=== PATIENT | female | born 1955 | race Caucasian/White ===

== ENCOUNTER → 2019-04-23 15:28 | Outpatient (CLI) | payer OTHER, SELFPAY ==
--- NOTE | 2019-04-23 15:37 | RAD_ITS ---
ACR Level 3 findings have been noted. An addendum which confirms receipt of the report will follow. STUDY: X-RAY -thoracic SPINE REASON FOR EXAM: Female, 63 years old. acute midline thoracic back pain -- no injury TECHNIQUE: 3 view(s) of the thoracic spine were obtained. COMPARISON: April 25, 2009 FINDINGS: There is increased thoracic kyphosis. There are new severe and mild compression fractures of multiple mid vertebral bodies There is multi-level endplate spondylosis. There is multi-level degenerative disc disease with multilevel disc space narrowing. The soft tissue structures are unremarkable. RAD/Thoracic Spine 2 Views IMPRESSION: Mid thoracic compression fractures. Further evaluation with CT is recommended. Electronically Signed: Maya Hinojosa MD at 9:49 EST Tel , Service support ,
--- NOTE | 2019-04-23 15:37 | RAD_ITS ---
STUDY: X-RAY CHEST REASON FOR EXAM: Female, 63 years old. Acute back pain TECHNIQUE: PA and lateral views of the chest. COMPARISON: 04/25/2009 FINDINGS: There is consolidation in the right middle lobe. There are emphysematous changes of lungs. The left lung is clear. There is no demonstrated pleural abnormality. Normal size heart. Normal mediastinum and laurent. Normal visualized pulmonary arteries. There is atherosclerotic calcification of the aortic arch . There is dextroscoliosis of the upper lumbar spine. There is exaggerated kyphosis of the thoracic spine. There is a compression fracture with anterior wedging of mid thoracic vertebral body. Normal visualized ribs, clavicles, and shoulders. There is no demonstrated abnormality of the visualized soft tissue structures of the upper abdomen. RAD/Chest PA and Lateral IMPRESSION: Compression fracture with anterior wedging of midthoracic vertebral body, this is likely acute given the history. There is a right middle lobe consolidation which may represent atelectasis or pneumonia. Electronically Signed: Kell Garcia, at 16:43 EST Tel , Service support ,
== END ==
PROVIDERS: PCP Family Medicine; Referring Provider Family Medicine; Visit Provider Family Medicine
DX: M54.6 Pain in thoracic spine (principal)
CPT/HCPCS: 71046; 72070

== ENCOUNTER → 2019-04-24 09:32 | Outpatient (CLI) | payer OTHER, SELFPAY ==
--- NOTE | 2019-04-24 09:53 | CT_ITS ---
STUDY: CT THORACIC SPINE WITHOUT CONTRAST REASON FOR EXAM: Female, 63 years old. PT STATED UPPER BACK PAIN, SUSPECTED THORACIC COMPRESSION FX RADIATION DOSAGE (If Supplied By Facility): CTDIvol = ( 18.42 ) mGy, DLP = ( 700.93 ) mGycm TECHNIQUE: The patient was scanned in a multi detector CT scanner. High resolution imaging was performed. Images were obtained from C3 to L1. Sagittal and coronal images were reconstructed. Individualized dose optimization techniques were used for this CT. COMPARISON: Thoracic spine x-ray 04/23/2019 and chest x-ray 01/08/2010. FINDINGS: Normal visualized cervical spine. There is acute compression fracture with anterior wedging of the T6 vertebral body with approximately 75% loss of vertebral body height. There is minimal retropulsion of the posterior vertebral body cortex without significant central canal narrowing. There is an acute nondisplaced fracture of the T6 left transverse process. Mild degenerative disc disease. Normal kyphosis of the thoracic spine. There is no substantial scoliosis. The soft tissue structures are unremarkable. Mild emphysematous changes of the lungs. There is mucous inspissation in the right middle lobe and right middle lobe segmental atelectasis. Biapical pleural-parenchymal scarring is seen. A few scattered 2 mm pulmonary nodules. There are atherosclerotic changes of the aortic arch and trace coronary artery calcification. CT/Spine Thoracic without Contras IMPRESSION: Acute compression fracture with anterior wedging of the T6 vertebral body. Acute nondisplaced fracture of the left T6 transverse process. 2 mm pulmonary nodules. If high-risk for developing pulmonary malignancy continued annual chest CT is recommended. If low risk, no follow-up is recommended. Electronically Signed: Kell Garcia, at 12:03 EST Tel , Service support ,
== END ==
PROVIDERS: PCP Family Medicine; Referring Provider Family Medicine; Visit Provider Family Medicine
DX: S22.000A Wedge compression fracture of unspecified thoracic vertebra, initial encounter for closed fracture (principal); X58.XXXA Exposure to other specified factors, initial encounter; Y93.9 Activity, unspecified; Y92.9 Unspecified place or not applicable; Y99.9 Unspecified external cause status
CPT/HCPCS: 72128

== ENCOUNTER 2019-10-02 17:51 | Emergency (ER) | payer MEDICARE, SELFPAY ==
[2019-10-02] VITALS (10 sets, daily range): BP systolic 86–124; BP diastolic 58–70; PULSE 87–110; RESP 17–32; TEMP 36.4–37.1; O2SAT 86–100; BMI 17.9
--- NOTE | 2019-10-02 18:04 | EKG12_ITS ---
Test Reason : SOB Blood Pressure : / mmHG Vent. Rate : 106 BPM Atrial Rate : 106 BPM P-R Int : 136 ms QRS Dur : 074 ms QT Int : 350 ms P-R-T Axes : 083 077 086 degrees QTc Int : 464 ms Sinus tachycardia Nonspecific T wave abnormality Abnormal ECG Confirmed by BC GARCIA ([id number]), international editorial producer NENA OCHOA ([id number]) on 10/05/2019 10:26:56 AM Referred By: SYED Confirmed By:BC GARCIA
--- NOTE | 2019-10-02 18:08 | NURSING ---
NO OLD EKGS
[2019-10-02] MEDS: Ondansetron 4 MG/2 ML Vial IV (18:11)
[2019-10-02] MEDS: Morphine 2 MG/ML Syringe IV ×2 (18:15→18:40)
[2019-10-02] MEDS: Ipratropium/Albuterol Sulfate 3 ML AMPUL.NEB INHALATION (18:20)
[2019-10-02 18:24] LABS: Absolute Lymphocyte Count 1.34 X10^3/uL (0.83-4.51); Absolute Neutrophil Count 18.5 X10^3/uL (2.0-7.7); Basophil# 0.03 X10^3/uL; Basophil% 0.1 % (0-1); Eosinophil# 0.02 X10^3/uL; Eosinophils% 0.1 % (0-5); Hematocrit 22.5 % (37-47); Hemoglobin 6.8 g/dL (12.0-15.0); Lymphocyte # 1.34 X10^3/ul (4.0); Lymphocyte % 6.3 % (19-41); Mean Corp Hgb Conc 30.2 g/dL (32-36); Mean Corpuscular Hgb 23.7 pg (27.0-32.0); Mean Corpuscular Volume 78.4 fL (81-99); Mean Platelet Vol. 8.9 fl (6.2-12.0); Monocyte# 1.25 X10^3/uL; Monocyte% 5.9 % (0-10); NRBC Flagged by Analyzer 0.1 % (0-5); Neutrophil # 18.45 X10^3/uL (2.7-7.7); Neutrophil % 87.2 % (47-70); Platelet Count 699 K/mm3 (150-450); RBC Distribution Width CV 16.6 % (11.6-14.6); RBC Distribution Width SD 47.1 fl (35.1-43.9); Red Blood Count 2.87 M/mm3 (4.2-5.4); White Blood Count 21.2 K/mm3 (4.4-11.0)
[2019-10-02 18:44] LABS: Anion Gap 11 (5-15); BUN 11 mg/dL (7-18); BUN/Creat Ratio 7.5 RATIO (10-20); Calcium,Total 7.4 mg/dL (8.5-10.1); Chloride 107 mmol/L (98-107); Creatinine, Serum 1.47 mg/dL (0.55-1.02); EST Glomerular Filtration Rate 38 mL/min (>60); Est Glom Filt Rate - Afr Amer 46 mL/min (>60); Estimated Creatinine Clearance 27.16 ml/min; Glucose 146 mg/dL (74-106); Magnesium 1.8 mg/dL (1.6-2.6); Potassium 2.7 mmol/L (3.5-5.1); Sodium Level 140 mmol/L (136-145)
--- NOTE | 2019-10-02 18:44 | ED.RN ---
DR CURRY AWARE OF CRITICAL K RESULTS
--- NOTE | 2019-10-02 18:45 | RAD_ITS ---
STUDY: X-RAY CHEST REASON FOR EXAM: Female, 63 years old. SHORTNESS OF BREATH TECHNIQUE: Single AP portable view of the chest. COMPARISON: 04/23/2019. FINDINGS: The lungs are clear and expanded. There is no demonstrated pleural abnormality. Normal size heart. Normal mediastinum and laurent. Normal visualized pulmonary arteries. Normal visualized aortic arch and descending thoracic aorta. Normal visualized thoracic spine. Normal visualized ribs, clavicles, and shoulders. There is no demonstrated abnormality of the visualized soft tissue structures of the upper abdomen. RAD/Chest 1 View (Portable) IMPRESSION: Normal x-ray examination of the chest. Electronically Signed: Aida Gaspar MD at 19:07 EDT Tel , Service support ,
--- NOTE | 2019-10-02 18:49 | CT_ITS ---
STUDY: CTA CHEST REASON FOR EXAM: Female, 63 years old. SOB/TACHYCARDIC/TACHYPNEIC. Hx of asthma, COPD and seizures RADIATION DOSAGE (If Supplied By Facility): CTDIvol = ( 2.56 ) mGy, DLP = ( 111.61 ) mGycm TECHNIQUE: The examination was performed with the intravenous administration of Isovue 370 75ml. Post-processing of the angiographic images was performed, with multiplanar reformation and 3D reconstruction. Individualized dose optimization techniques were used for this CT. COMPARISON: None. FINDINGS: The heart and pericardium are normal. The aorta is normal in caliber. No aneurysm or dissection. There is no mediastinal mass or adenopathy. There is no hilar or axillary adenopathy. There is no evidence of pulmonary embolus. There is no pleural effusion. Right middle lobe scarring is noted. Minimal fibrotic changes are noted in the upper lobes bilaterally. There is no pulmonary consolidation. Increased AP diameter of the chest. Mild centrilobular emphysematous changes. Marked, diffuse fatty infiltration of the liver. Visualized abdomen is otherwise unremarkable. There is no osseous abnormality. CT/CTA Chest W/WO Contrast IMPRESSION: 1. No pulmonary embolism or arterial dissection. 2. COPD. 3. Hepatic steatosis. Electronically Signed: Aida Gaspar MD at 20:21 EDT Tel , Service support ,
[2019-10-02 19:05] LABS: Lactic Acid 5.3 mmol/L (0.4-1.9)
[2019-10-02] MEDS: Ceftriaxone 1 GM/50 ML BAG IV (19:13)
[2019-10-02] MEDS: Potassium Chloride 10mEq/100mL 10 MEQ/100 ML IV.SOLN. 100 MEQ IV BOLUS ×3 (19:46→22:06)
--- NOTE | 2019-10-02 19:58 | ED.VIS.GEN ---
History of Present Illness Chief Complaint: Shortness of Breath Informant: Patient Narrative: Patient is a 63-year-old female with a past medical history of COPD who presents to the emergency department for back pain and shortness of breath. She states that she has known chronic back fractures and this is typical for her back pain. It is in the upper region. He is complaining of diffuse body pain now. She was brought to the emergency department because her friend told her to come. She was having increased work of breathing and feeling short of breath. She does have this chronically but seems to be getting worse recently. She is not on any supplemental oxygen at home. She is a current every day smoker still. She does not use any breathing treatments and does not follow with a PCP. Denies any fevers or chills. She has had a mild cough that has been nonproductive. She denies any leg swelling or calf pain. No history of heart attacks, strokes or DVT/PE. She denies any known sick contacts. No fevers or chills. No abdominal pain or nausea/vomiting. Is been having some episodes of diarrhea over the past few days. Upon arrival patient was very short of breath and had increased work of breathing. After breathing treatment and some time she did improve significantly with her breathing. Better history was able to be attained and she has been having some epigastric abdominal pain. This been present over the past month or 2. She has been having melanotic stools every day to every other day. She states she is a daily drinker and has cut back to 5-6 beers per day. No known history of esophageal varices. Past Medical History - Allergies and Home Meds Allergies/Adverse Reactions: Allergies No Known Allergies Allergy (Verified 10/02/19 18:05) Primary Care Physician: Care Physician,No Primary [Primary Care Provider] - Prior records reviewed: Yes Past Medical History: - - COPD Smoking Status: Light Smoker (<10/day) Alcohol: None, Heavy Drugs: None Review of Systems All systems negative except as indicated General: Denies: Chills, Fever, Sweats Eyes: Denies: Visual changes - bilaterally, Diplopia ENT: Denies: Rhinorrhea, Sore throat Cardiovascular: Denies: Chest pain, Palpitations Respiratory: Reports: Dyspnea, Cough, Dyspnea on exertion, Paroxysmal nocturnal dyspnea. Denies: Sputum Gastrointestinal: Reports: Abdominal pain, Diarrhea, Melena. Denies: Nausea, Vomiting Genitourinary: Denies: Dysuria, Hematuria, Frequency Musculoskeletal: Reports: Back pain. Denies: Extremity Pain Skin: Denies: Rash, Wounds Neurological: Denies: Headache, Weakness, Numbness Physical Exam Vital Signs/Narrative: Vital Signs Temp Pulse Resp BP Pulse Ox 10/02/19 19:36 97.8 F 101 H 28 H 103/64 100 10/02/19 18:36 97.9 F 100 28 H 100/68 10/02/19 18:20 95 32 H 10/02/19 18:06 100 10/02/19 17:53 98.7 F 110 H 24 H 86/58 L 86 Inital Vital Signs reviewed: Yes General: Cachectic, - - Mild distress due to respiratory issues Head: Normocephalic, Atraumatic Eyes: Perrl, EOMI ENT: Moist mucous membranes, No rhinorrhea Neck: Supple, Nontender Cardiovascular: Regular rate, Regular rhythm, No murmurs Respiratory: Rhonchi, Wheezing, Decreased Air Movement, Retractions - Tachypneic, - Abdomen: Soft, Nontender, Nondistended, Normal bowel sounds Back: Normal Inspection, Spinal tenderness Extremities: Nontender, No edema. Negative for: Edema, Calf Tenderness Skin: Normal color, No rash Neurological: Alert, Oriented x3, Cranial nerves II-XII grossly intact, Normal Strength, Normal Sensation Psychological: Normal affect, Normal Mood Diagnostic/Tx/Re-eval - EKG Initial EKG Interpretation: - - Rate of 106 bpm in sinus tachycardia. Normal intervals. Normal axis. No ST elevations or depressions appreciated. No T wave abnormalities. Baseline artifact seen. - Medical Decision Making Patient presents the emerge department for back pain that is chronic for her. She also coming in for shortness of breath. She states she would not have come in unless her friend made her. Upon arrival she did appear to be in mild respiratory distress with tachypnea and retractions. Her lungs did have rhonchi and wheezing bilaterally. She was giving a breathing treatment. Started on supplemental oxygen due to hypoxia. She has a white count over 20 and was started on antibiotics for community-acquired pneumonia although once x-ray obtained which did not show any evidence of pneumonia. Due to the back pain and shortness of breath CT scan was performed to evaluate for dissection versus pulmonary embolism. Initial troponin within normal limits. She is hypokalemic and this is being replaced. Her lactic acid is mildly elevated and she was started on IV fluids. Patient was found to be very anemic. She was consented for packed red blood cells given the shortness of breath with the melanotic stools. Given a dose of IV Protonix. Given the fact that she is a drinker and and with the upper GI bleed she needed to be transferred out as we do not have somebody who can do the endoscopy here. This was discussed with the patient and she is okay with being transferred. She otherwise has been stable after initial resuscitation. Will transfer at this time in stable condition. - Critical Care Time Critical care time (excluding procedures): 30-74 minutes, Discussing w/Patient &/or Family/Plunger Machine Operator, Discussing w/Consultants, Arranging Admission or Transfer, Performing Direct Patient Care at Bedside ED Disposition - Plan for ED Patient: Disposition: [facility] Diagnosis: Upper GI bleed, Blood loss anemia, Acute respiratory failure, Hypokalemia, Leukocytosis, Lactic acidosis, Back pain Referrals: Care Physician,No Primary [Primary Care Provider] -
[2019-10-02] MEDS: Morphine 4 MG/ML Syringe IV (20:23)
[2019-10-02 20:45] LABS: Mucous, Urine 0 SEEN /hpf (<or=2+); Red Blood Cells-Urine 0 SEEN /hpf (0-5)
[2019-10-02 20:50] LABS: Color, Urine Yellow (Yellow); Glucose, Dipstick Normal (Normal); Ketone-Dipstick Negative (Negative); Leukocyte Esterase-Dipstick Negative /ul (Negative); Nitrite-Dipstick Negative (Negative); Occult Blood-Urine 10 /ul (Negative); Protein-Dipstick 15 mg/dl (Negative); Specific Gravity, Urine 1.015 (1.002-1.030); Urine Bilirubin Dipstick Negative (Negative); Urine Clarity Sl. Cloudy (Clear); Urine Urobilinogen Normal (Normal)
[2019-10-02 21:02] LABS: Bacteria 1+ /hpf (None Seen); Squamous Epithelial Cells - UA 0-5 SEEN /hpf (5-10); White Cell Cast 5-10 SEEN /lpf (None Seen)
[2019-10-02 21:03] LABS: White Blood Cells 10-25 SEEN /hpf (0-5)
--- NOTE | 2019-10-02 21:14 | HP.PCM_ITS ---
Problem List (1) Acute respiratory failure Status: Acute Qualifiers: Respiratory failure complication: hypoxia Qualified Code(s): J96.01 - Acute respiratory failure with hypoxia (2) COPD exacerbation Status: Acute (3) Upper GI bleed Status: Acute (4) Blood loss anemia Status: Acute (5) Hypokalemia Status: Acute (6) Lactic acidosis Status: Acute (7) Back pain Status: Chronic Qualifiers: Back pain location: back pain in unspecified location Chronicity: unspecified Back pain laterality: unspecified Qualified Code(s): M54.9 - Dorsalgia, unspecified (8) Tobacco use Status: Chronic (9) Severe protein-calorie malnutrition Status: Chronic (10) Alcohol abuse Status: Chronic History of Present Illness Date of Admission: 10/02/19 Chief Complaint: Dyspnea The patient is a 63 y/o F w/ PMHx: EtOH Abuse, Asthma/COPD with ongoing Tobacco use, Chronic back pain who [facility] with history of increased dyspnea, ongoing for several weeks with no home inhalers, nor on any supplemental oxygen with unchanged baseline chronic cough with no recent fever or chills, nor any COVID risk/exposures not improving prompting eventual ED exposure. Patient upon presentation was wheezing, which improved after aerosol treatment. Given patient significant anemia concern as possible etiology for her dyspnea complaints with further evaluation patient admitting significant ongoing loose stools intermittently over the last 2 weeks, occasionally melanotic appearing with generalized abdominal cramping intermittently. Patient notes that she has recently decreased her alcohol intake and is now drinking approximately 6 beers daily. Work-up in the ED included T 98.7, initially heart rate 110, initially BP 86/58, initially respiratory rate 24, initially 86% on room air with repeat vitals at requested time of evaluation including T 98.3, heart rate 99, BP 116/67, respiratory rate 26, 100% on 3 L nasal cannula, CBC with WBC 21.2, hemoglobin 6.8, MCV 78.4, platelet count 699 with left shift, BMP with potassium 2.7, BUN/creatinine 11/1.47, glucose 146, lactic acid 5.3, calcium 7.8, magnesium 1.8, troponin less than 0.015, urinalysis with specific gravity 1.015, negative nitrite, negative leukocyte esterase, urine WBCs 10-25 with 1+ bacteria, COVID pending, but culture x2 pending per ED, urine culture p ending per ED, chest x-ray with no acute cardiopulmonary findings, follow-up CTPA with no evidence of pulmonary embolism or arterial dissection, evidence of chronic COPD and hepatic steatosis. In the ED patient administered Zofran, several rounds of morphine, Rocephin and azithromycin as well as DuoNeb and albuterol therapies in addition to potassium supplementation. Following patient admission of melanotic stools patient also administered IV Protonix per ED physician and 1 unit PRBC ordered with type and cross. Past Medical History Past Medical History (Chronic Problems): Chronic Problems Back pain (Chronic) Alcohol abuse (Chronic) Severe protein-calorie malnutrition (Chronic) Tobacco use (Chronic) Allergies No Known Allergies Allergy (Verified 10/02/19 18:05) Home Medications: Ambulatory Orders Medication Instructions Recorded Acetaminophen [Tylenol Extra 1,000 mg PO DAILY PRN PRN 10/02/19 Strength] Albuterol Sulfate [Albuterol 2 puff INHALATION Q4H PRN PRN 10/02/19 Sulfate HFA] Aspirin [Aspirin, Baby] 81 mg PO DAILY@0800 10/02/19 Ibuprofen 600 mg PO DAILY PRN PRN 10/02/19 Surgical History: - - Tonsillectomy, left eye surgery. 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 Tobacco Use: Cigarettes Alcohol: Heavy - Patient reports she is now down to 6 beers daily. Previously had been more. Drugs: None - *Family History Maternal History Items: Diabetes Paternal History Items: Diabetes Review of Systems Constitutional: Reports: Anorexia, Malaise, Weakness, Fatigue. Denies: Chills, Fever, Weight Change HEENT: Denies: Head Aches, Sinus Congestion, Sinus Drainage Cardiovascular: Denies: Chest Pain, Chest Pressure, Chest Tightness, Light Headedness, Orthopnea, Palpitations, Syncope Respiratory: Reports: Cough, Shortness of Breath, Shortness of breath at rest, Shortness of breath upon exertion, Wheezing. Denies: Sputum production Gastrointestinal: Reports: Abdominal Pain, Diarrhea, Dyspepsia, Nausea, Melena. Denies: Vomiting Genitourinary: Denies: Dysuria Musculoskeletal: Reports: Back Pain, Joint Pain. Denies: Joint Tenderness Skin: Denies: Rash, Wounds Neurological: Denies: Numbness, Tingling, Focal weakness Psychiatric: Denies: Anxiety, Depression, Homicidal Ideations, Suicidal Ideations Hematologic/ Lymphatic: Reports: Anemia, Easy Bruising, Easy Bleeding VTE Information - Inpt Only VTE Present on Admission: No VTE Mechan Device Prophylaxis: SCD's VTE Pharm Prophylaxis ordered?: No Reason prophylaxis not ordered:: Medical Contraindication Subjective: Patient seated upright in the ED bed, significantly uncomfortable appearing, notes that her back is bothering her, feels less short of breath than initial ED presentation. Objective: Physical Examination: General: awake, alert, oriented x 3 and cooperative, seated upright in the ED bed, notes significant discomfort to her back, notes less dyspnea than initial ED presentation. Skin: Pale color, turgor, no icterus, cyanosis. HEENT: AT/NC, EOMI, PERRLA, dry MM, no carotid bruits or JVD noted. Lungs: Diminished breath sounds, greater bilateral bases, still mild increased respiratory rate but less and accessory muscle usage, improved since initial ED presentation, still occasional end expiratory wheeze, no obvious rales or rhonchi. Heart: Tachycardic with regular rhythm; no gallop, rub audible. Abdomen: soft, cachectic appearing, mild generalized discomfort with palpation with no rebound or guarding, ND, normal BS, positive HM. Extremities: no cyanosis, clubbing, or edema. Neurological: patient awake, alert, oriented x 3; cognitive function intact; pupils equally reactive to light and accomodation; cranial nerves II-XII grossly normal, moving all 4 extremities, no focal deficits, strength moderately to severely global decrease secondary to acute presentation and complaints. Psychiatric: affect appears uncomfortable, ill-appearing, no acute evidence of depressive or anxiety feelings. - Physical Exam Vitals/I&O's: Vital Signs Temp Pulse Resp BP Pulse Ox 98.3 F 99 26 H 116/67 100 10/02/19 20:34 10/02/19 20:34 10/02/19 20:34 10/02/19 20:34 10/02/19 20:34 Oxygen Flow Rate (L/min) 3 Oxygen Delivery Method Nasal Cannula Weight: 98 lb 1.691 oz Body Mass Index (BMI) 17.9 Intake and Output for Last 24 Hours 09/30/19 10/01/19 10/02/19 23:59 23:59 23:59 Intake Total 388.33 / 388.33 Balance 388.33 / 388.33 Laboratory Results 10/02/19 18:05: WBC 21.2 H, RBC 2.87 L, Hgb 6.8 L, Hct 22.5 L, MCV 78.4 L, MCH 23.7 L, MCHC 30.2 L, RDW Std Deviation 47.1 H, RDW Coeff of Lennox 16.6 H, Plt Count 699 H, MPV 8.9, Immature Gran % (Auto) 0.400, Neut % (Auto) 87.2 H, Lymph % (Auto) 6.3 L, Wilcox % (Auto) 5.9, Eos % (Auto) 0.1, Baso % (Auto) 0.1, Absolute Neuts (auto) 18.5 H, Absolute Lymphs (auto) 1.34, Nucleated RBC % 0.1 10/02/19 18:05: Sodium 140, Potassium 2.7 L*, Chloride 107, Carbon Dioxide 22.0, Anion Gap 11, BUN 11, Creatinine 1.47 H, Estim Creat Clear Calc 27.16, Est GFR (MDRD) Af Amer 46 L, Est GFR (MDRD) Non-Af 38 L, BUN/Creatinine Ratio 7.5 L, Glucose 146 H, Calcium 7.4 L, Magnesium 1.8, Troponin I < 0.015 10/02/19 18:05: Lactic Acid 5.3 H* 10/02/19 19:17: COVID-19 (TEJAS) Pending 10/02/19 20:37: Urine Color Yellow, Urine Clarity Sl. Cloudy, Urine pH 5.0, Ur Specific [place] 1.015, Urine Protein 15 H, Urine Glucose (UA) Normal, Urine Ketones Negative, Urine Occult Blood 10 H, Urine Nitrite Negative, Urine Bilirubin Negative, Urine Urobilinogen Normal, Ur Leukocyte Esterase Negative, U rine RBC 0 SEEN, Urine WBC 10-25 SEEN, Ur Squamous Epith Cells 0-5 SEEN, Urine Bacteria 1+, WBC Casts 5-10 SEEN, Urine Mucus 0 SEEN Current Medications Potassium Chloride () 10 meq in 100 mls @ 100 mls/hr IV BOLUS Q1H GONZALEZ Stop: 10/02/19 21:59 Last Admin: 10/02/19 20:36 Dose: 100 mls/hr Documented by: Assessment/Plan All Active Problems Upper GI bleed (Acute) Blood loss anemia (Acute) Acute respiratory failure (Acute) Hypokalemia (Acute) Leukocytosis (Acute) Lactic acidosis (Acute) COPD exacerbation (Acute) The patient is a 63 y/o F w/ PMHx: EtOH Abuse, Asthma/COPD with ongoing Tobacco use, Chronic back pain who [facility] with history of increased dyspnea, ongoing for several weeks with no home inhalers, nor on any supplemental oxygen with unchanged baseline chronic cough with no recent fever or chills, nor any COVID risk/exposures not improving prompting eventual ED exposure. 1. Acute Hypoxic Respiratory Failure, Multifactorial, Acute on chronic COPD exacerbation and #2: Pending discussions with general surgeon if amenable to admission at [facility] [place], will admit to PCU, and on telemetry monitoring, maintain on oxygen with wean as tolerated to room air, continue on. ATC duonebs, PRN albuterol, able defer Solu-Medrol given concern for GI bleed but if necessary would add, HOB, IS parameters, IV Rocephin and azithromycin pending repeat a.m. chest x-ray given significant leukocytosis with left shift with pending sputum cultures. 2. Acute GI Bleed w/ resultant Acute Blood Loss Anemia on Chronic: Would plan to obtain admission coags, per discussion with ED physician planned 1 unit PRBC administration, continue serial H&H's following, additional PRBCs as needed, maintain n.p.o. status, maintain on IV Protonix, plan in discussions with general surgery for consideration for admission and endoscopies although high risk given alcohol abuse history. Given possible variceal given alcohol abuse history, maintain on IV Rocephin as noted above #1. May need to consider octreotide. 3. Lactic acidosis, suspected secondary to #2: Admission lactic acid initially 5.3, suspect secondary to GI bleed, continue judicious hydration, trend lactic acid level. 4. Hypokalemia: Admission K+ 2.7, magnesium level requested, likely associated with recent significant stool output secondary to #2, supplementation given, repeat level in AM. 5. ? LORENZO versus CKD, unclear stage: Admission BUN/creatinine 12/22.47, unclear baseline, creatinine clearance 27, suspect acute kidney injury, continue judicious hydration, repeat BMP in AM. 6. EtOH Abuse: Patient notes routine consumption of at least 6 beers per day. Will maintain on CIWA protocol, MVI, thiamine and folic acid. Patient notes intention of continued EtOH usage. 7. Severe protein calorie malnutrition: Evidenced per BMI, obvious muscle and fat loss, nutrition consulted for education and teaching. 8. DVT prophylaxis: SCDs, defer chemoprophylaxis given acute presentation with suspected GI bleed with acute on chronic anemia. 9. CODE status: Patient does not have healthcare power of attorney at law nor living will in place. Encouraged her to set these items up. Discussed CODE status at length including difference between FULL code, DNR-CCA and DNR-CC status. Following discussions about the differences in these status, requested Full Code status. Advanced Care Planning Face to Face Time: 16 minutes.
[2019-10-02 22:46] LABS: Reflex Lactate? Y
[2019-10-02 23:41] LABS: AST(SGOT) 15 U/L (15-37); Alanine Aminotransfer ALT/SGPT 39 U/L (13-56); Albumin, Serum 1.6 g/dL (3.2-5.0); Alkaline Phosphatase 205 U/L (45-117); Bilirubin, Direct 0.14 mg/dL (0.00-0.30); Globulin 3.7 g/dL (2.2-4.2); Protein, Total 5.3 g/dL (6.4-8.2)
[2019-10-02 23:52] LABS: Lactic Acid 3.3 mmol/L (0.4-1.9)
[2019-10-03 00:10] VITALS: BP 96/67; PULSE 91; RESP 19; O2SAT 100
[2019-10-03 00:15] VITALS: BP 107/82; PULSE 93; RESP 22; TEMP 36.6; O2SAT 100
[2019-10-03 00:41] LABS: International Normalized Ratio 1.3; Prothrombin Time (Protime)PT. 15.4 SECONDS (11.7-14.9)
[2019-10-03 00:42] LABS: Partial Thromboplast Time 32.9 Seconds (24.1-36.2)
== END 2019-10-03 01:09 | disposition short-term general hospital (02) ==
PROVIDERS: Emergency Provider Emergency Medicine
DX: J96.01 Acute respiratory failure with hypoxia (principal); J44.1 Chronic obstructive pulmonary disease with (acute) exacerbation; D62 Acute posthemorrhagic anemia; E87.6 Hypokalemia; E87.2 Acidosis; D72.829 Elevated white blood cell count, unspecified; K92.1 Melena; R10.13 Epigastric pain; M54.9 Dorsalgia, unspecified; G89.29 Other chronic pain; E43 Unspecified severe protein-calorie malnutrition; F10.10 Alcohol abuse, uncomplicated; F17.210 Nicotine dependence, cigarettes, uncomplicated; Z79.82 Long term (current) use of aspirin; Z79.899 Other long term (current) drug therapy
CPT/HCPCS: 71045; 71275; 80048; 80076; 81001; 83605; 83735; 84484; 85025; 85610; 85730; 86850; 86900; 86901; 86920; 86922; 87040; 87086; 87635; 93005; 94640; 94799; 96365; 96366; 96367; 96375; 96376; 99285; J7030; J7040; J7050; Q9967; A4216; J2405; U0003

== ENCOUNTER 2019-10-21 09:52 | Inpatient (IN) | payer MEDICARE, SELFPAY ==
[2019-10-02 17:53] VITALS: BMI 17.9
[2019-10-21 09:52] VITALS: BP 142/79; PULSE 107; RESP 25; TEMP 37.1; O2SAT 94; BMI 17.9
--- NOTE | 2019-10-21 10:42 | RAD_ITS ---
STUDY: X-RAY CHEST REASON FOR EXAM: Female, 64 years old. WEAKNESS, COPD TECHNIQUE: Single AP portable view of the chest. COMPARISON: 10/02/2019 FINDINGS: There is hyperinflation of the lungs consistent with chronic obstructive lung disease (COPD). Alveolar opacity in the lower right lung which silhouettes right heart border consistent with right middle lobe pneumonia. Tiny right pleural effusion. Normal size heart. Normal mediastinum and laurent. Normal visualized pulmonary arteries. Normal visualized aortic arch and descending thoracic aorta. Normal visualized thoracic spine. Normal visualized ribs, clavicles, and shoulders. There is no demonstrated abnormality of the visualized soft tissue structures of the upper abdomen. RAD/Chest 1 View (Portable) IMPRESSION: Emphysema with right middle lobe pneumonia and a tiny right pleural effusion. Electronically Signed: Van Beck MD at 11:12 EDT Tel , Service support ,
--- NOTE | 2019-10-21 10:42 | EKG12_ITS ---
Test Reason : Blood Pressure : / mmHG Vent. Rate : 099 BPM Atrial Rate : 099 BPM P-R Int : 120 ms QRS Dur : 064 ms QT Int : 366 ms P-R-T Axes : 076 074 081 degrees QTc Int : 469 ms Normal sinus rhythm with sinus arrhythmia Low voltage QRS (Limb Leads) Possible Left atrial enlargement Nonspecific ST abnormality Abnormal ECG Confirmed by DANUTA WHITTEN, IMTIAZ ([id number]), index editor NENA OCHOA ([id number]) on 10/25/2019 11:23:54 AM Referred By: ALAYNA Confirmed By:IMTIAZ TIPTON MD
[2019-10-21 10:53] LABS: Absolute Lymphocyte Count 1.62 X10^3/uL (0.83-4.51); Absolute Neutrophil Count 13.8 X10^3/uL (2.0-7.7); Basophil# 0.03 X10^3/uL; Basophil% 0.2 % (0-1); Eosinophil# 0.01 X10^3/uL; Eosinophils% 0.1 % (0-5); Hemoglobin 10.5 g/dL (12.0-15.0); Lymphocyte # 1.62 X10^3/ul (4.0); Lymphocyte % 9.6 % (19-41); Mean Corp Hgb Conc 30.9 g/dL (32-36); Mean Corpuscular Hgb 26.9 pg (27.0-32.0); Mean Platelet Vol. 10.5 fl (6.2-12.0); Monocyte# 1.35 X10^3/uL; NRBC Flagged by Analyzer 0 % (0-5); Neutrophil # 13.75 X10^3/uL (2.7-7.7); Neutrophil % 81.3 % (47-70); POSITIVE COUNT YES; POSITIVE MORPHOLOGY YES; RBC Distribution Width SD 72.3 fl (35.1-43.9); Red Blood Count 3.91 M/mm3 (4.2-5.4); White Blood Count 16.9 K/mm3 (4.4-11.0)
[2019-10-21 11:06] LABS: Anion Gap 7 (5-15); BUN 5 mg/dL (7-18); BUN/Creat Ratio 17.3 RATIO (10-20); Calcium,Total 8.2 mg/dL (8.5-10.1); Chloride 110 mmol/L (98-107); Creatinine, Serum 0.29 mg/dL (0.55-1.02); EST Glomerular Filtration Rate 248 mL/min (>60); Est Glom Filt Rate - Afr Amer 300 mL/min (>60); Estimated Creatinine Clearance 158.15 ml/min; Glucose 93 mg/dL (74-106); Potassium 3.7 mmol/L (3.5-5.1); Sodium Level 140 mmol/L (136-145)
[2019-10-21 11:07] LABS: Differential Indicated SCAN CRITERIA MET; Platelet Count 921 K/mm3 (150-450)
--- NOTE | 2019-10-21 11:13 | ED.DCSUM_ITS ---
History of Present Illness Chief Complaint: Weakness Informant: Patient Onset: Days Context: Gradual Onset Narrative: Patient is a 64-year-old female with history of COPD and recent complex medical admission at [facility] for respiratory failure requiring intubation for 2 days, pleural effusions, COPD exacerbation, colitis and GI bleed. Patient was actually intubated from 10/04- and then weaned off of oxygen. She had bilateral thoracentesis performed with 900 mL's taken off of each side. This was on 10/10. Patient was discharged from the hospital yesterday home. Patient had been recommended to go to long term facility but had refused thinking that she could go home with a walker. Patient has not been able to move or walk since she has been home. She states she is too weak. She now realizes that she needs to placement and came back to the emergency room to help arrange that. Patient lives home alone. Patient states she is otherwise feeling well. She denies any worsening of her breathing, chest pain or any other constitutional symptoms. Past Medical History - Allergies and Home Meds Allergies/Adverse Reactions: Allergies No Known Allergies Allergy (Verified 10/21/19 09:54) Surgical History: - - Tonsillectomy, left eye surgery. Smoking Status: Current every day smoker - Family History Maternal Family History: Reports: Diabetes Paternal Family History: Reports: Diabetes Review of Systems General: Denies: Chills, Fever, Sweats Eyes: Denies: Visual changes - bilaterally, Diplopia ENT: Denies: Rhinorrhea, Sore throat Cardiovascular: Denies: Chest pain, Palpitations Respiratory: Denies: Dyspnea, Cough, Dyspnea on exertion Gastrointestinal: Denies: Abdominal pain, Nausea, Vomiting, Diarrhea, Melena, Hematochezia Genitourinary: Denies: Dysuria, Hematuria, Frequency Musculoskeletal: Denies: Back pain, Extremity Pain Skin: Denies: Rash, Wounds Neurological: Reports: Weakness - Generalized. Denies: Headache, Numbness Physical Exam Vital Signs/Narrative: Vital Signs Temp Pulse Resp BP Pulse Ox 10/21/19 09:52 98.8 F 107 H 25 H 142/79 H 94 Inital Vital Signs reviewed: Yes General: Well nourished, Well developed, No Acute Distress Head: Normocephalic, Atraumatic Eyes: Perrl, EOMI ENT: Moist mucous membranes, No rhinorrhea Neck: Supple, Nontender, No JVD Cardiovascular: Regular rate, Regular rhythm, No murmurs Respiratory: No distress, Chest nontender, Diminished - Right base Abdomen: Soft, Nontender, Nondistended, Normal bowel sounds Back: Nontender, Normal Inspection Extremities: Nontender, No edema Skin: Normal color, No rash Neurological: Alert, Oriented x3, Cranial nerves II-XII grossly intact, Normal Sensation, - - Weakness of the lower extremities bilaterally but no focal deficits consistent with a stroke Psychological: Normal affect, Normal Mood Diagnostic/Tx/Re-eval Chest X-Ray - ED: 1 View, Read by ED Physician, Read by Radiologist, Right Infiltrate Laboratory Data 10/21/19 10/21/19 10:05 12:26 Differential Comment SCANNED Diff Path Review May foll Platelet Estimate [employer] Urine Color Yellow Urine Clarity Clear Urine pH 7.0 Ur Specific [place] 1.010 Urine Protein 15 H Urine Glucose (UA) Normal Urine Ketones 5 H Urine Occult Blood 10 H Urine Nitrite Negative Urine Bilirubin Negative Urine Urobilinogen Normal Ur Leukocyte Esterase 25 H Urine RBC 0-5 SEEN Urine WBC 5-10 SEEN Ur Squamous Epith Cells 5-10 SEEN Urine Bacteria RARE Urine Mucus RARE - Rhythm Strip Rhythm Strip: Sinus Rhythm Rate: 99 Ectopy: None - EKG Initial EKG Interpretation: Sinus Rhythm, - - Sinus rhythm at a rate of 99 Normal intervals Nonspecific T wave changes No change compared to prior to prior EKG on 10/02/2019 - Medical Decision Making Patient is evaluated for generalized weakness and inability to care for self at home. Patient was just discharged from [facility] yesterday. She was supposed to be admitted to a long term facility but had refused wanted to go home instead. Patient will require repeat admission for placement of nursing facility. She does have a mild leukocytosis but is currently on steroids. Her chest x-ray does show right infiltrate however she had a pneumonia she was treated for. She not having any respiratory symptoms that are worsening so I think this can be monitored at this time is likely her resolving pneumonia. ED Disposition - Plan for ED Patient: Disposition: Acute Care Hospital [facility] Diagnosis: Generalized weakness, Leukocytosis
[2019-10-21 11:45] LABS: Differential Comment SCANNED; Platelet Estimate MKD INC (ADEQ)
[2019-10-21 11:58] VITALS: BP 119/70; PULSE 86; RESP 17; O2SAT 97
[2019-10-21 12:37] LABS: Color, Urine Yellow (Yellow); Glucose, Dipstick Normal (Normal); Ketone-Dipstick 5 mg/dl (Negative); Leukocyte Esterase-Dipstick 25 /ul (Negative); Nitrite-Dipstick Negative (Negative); Occult Blood-Urine 10 /ul (Negative); Protein-Dipstick 15 mg/dl (Negative); Urine Bilirubin Dipstick Negative (Negative); Urine Clarity Clear (Clear); Urine Urobilinogen Normal (Normal)
--- NOTE | 2019-10-21 12:38 | PCM.HP.STD ---
History of Present Illness Date of Admission: 10/21/19 Chief Complaint: debility and weakness The patient is a 64 year old F with a past medical history which includes alcohol dependence. Patient was recently admitted at [facility] for an extended period for about 2 weeks in September 2019 for acute hypoxic respiratory failure with pneumonia and COPD exacerbation as well as bilateral pleural effusions. She was intubated during that admission and also had thoracentesis with drainage of 900 cc of fluid. Patient was also on antibiotics and was only discharged on 10/20/2019. She had been skilled for rehab but patient refused because she says she wanted to go home to her dog. On getting home, patient was very weak and debilitated and could not even get up. She therefore called the EMS and came back to the ED today. She denied any fever, chills, cough, shortness of breath, nausea vomiting or diarrhea. Review of symptoms otherwise negative. Vitals in the ED showed temperature of 98.8 Fahrenheit with blood pressure 119/70, pulse rate of 86 and respiratory rate of 17. Chemistry was essentially unremarkable. CBC showed WBC of 16.9 with hemoglobin of 10.5 and platelets of 921. This x-ray showed emphysema with right middle lobe pneumonia and a tiny right pleural effusion. She has been admitted to be managed for debility due to recent prolonged hospitalization as well as thrombocytosis. [] Past Medical History Past Medical History (Chronic Problems): Chronic Problems Alcohol abuse (Chronic) Severe protein-calorie malnutrition (Chronic) Tobacco use (Chronic) Allergies No Known Allergies Allergy (Verified 10/21/19 09:54) Home Medications: Ambulatory Orders Medication Instructions Recorded Albuterol Sulfate [Albuterol 2 puff INHALATION Q4H PRN PRN 10/02/19 Sulfate HFA] Aspirin [Aspirin, Baby] 81 mg PO DAILY@0800 10/02/19 Folic Acid 1 mg PO DAILY 10/21/19 Pantoprazole Sodium [Protonix] 40 mg PO BID 10/21/19 Prednisone 10 mg PO DAILY 10/21/19 Thiamine HCl [B-1] 100 mg PO DAILY 10/21/19 Surgical History: - - Tonsillectomy, left eye surgery. 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 Denies: Chills, Fever, Malaise, Weight Change Eyes: Denies: Blurred vision HEENT: Denies: Head Aches, Sinus Congestion, Sinus Drainage Cardiovascular: Denies: Chest Pain, Palpitations Respiratory: Denies: Cough, Shortness of Breath, Shortness of breath at rest, Shortness of breath upon exertion, Sputum production Gastrointestinal: Denies: Abdominal Pain, Nausea, Vomiting Genitourinary: Denies: Dysuria Musculoskeletal: Denies: Joint Pain, Joint Tenderness Skin: Denies: Rash, Wounds Neurological: Denies: Numbness, Tingling, Focal weakness Psychiatric: Denies: Anxiety, Depression, Homicidal Ideations, Suicidal Ideations Hematologic/ Lymphatic: Denies: Easy Bruising, Easy Bleeding VTE Information - Inpt Only VTE Present on Admission: No VTE Pharm Prophylaxis ordered?: Yes - Physical Exam Vitals/I&O's: Vital Signs Temp Pulse Resp BP Pulse Ox 98.8 F 86 17 119/70 97 10/21/19 09:52 10/21/19 11:58 10/21/19 11:58 10/21/19 11:58 10/21/19 11:58 Oxygen Delivery Method Room Air Weight: 114 lb 3.191 oz Body Mass Index (BMI) 17.9 General: Alert, Oriented x3, Cooperative, - - Patient looks much older than stated age. Looks weak. HEENT: Atraumatic, PERRLA, EOMI, Normocephalic Oral: Dry Mucosa Neck: Supple, No JVD, Negative Carotid Bruits Lungs: - - diminished breath sounds bibasally, no wheezes or crackles. has dressing over thoracentesis side on left side. Cardiovascular: Regular rate, Regular Rhythm, Normal S1, Normal S2, No murmurs Abdomen: Bowel Sounds Present, Soft, Non Tender, Non-Distended, No Hepato-splenomegaly Extremities: No clubbing, No cyanosis, No edema, Capillary Refill Less than 3 Seconds Skin: No rashes, No breakdown Musculoskeletal: No Tenderness to Palpation of Joints or Extremities Lymphatic: No Cervical, Supraclavicular, or Inguinal Adenopathy Neurological: Cranial nerves II-XII grossly intact, Neuro grossly intact, Motor Exam 5/5 strength throughout Psych/Mental Status: Normal Affect, Appropriate, Alert and oriented to time, place, person, mood and affect Laboratory Results 10/21/19 10:05: WBC 16.9 H, RBC 3.91 L, Hgb 10.5 L, Hct 34.0 L, MCV 87.0, MCH 26.9 L, MCHC 30.9 L, RDW Std Deviation 72.3 H, RDW Coeff of [place] 23.0 H, Plt Count 921 H*, MPV 10.5, Immature Gran % (Auto) 0.800, Neut % (Auto) 81.3 H, Lymph % (Auto) 9.6 L, [place] % (Auto) 8.0, Eos % (Auto) 0.1, Baso % (Auto) 0.2, Absolute Neuts (auto) 13.8 H, Absolute Lymphs (auto) 1.62, Nucleated RBC % 0, Differential Comment SCANNED, Diff Path Review June, Platelet Estimate [employer] 10/21/19 10:05: Sodium 140, Potassium 3.7, Chloride 110 H, Carbon Dioxide 23.0, Anion Gap 7, BUN 5 L, Creatinine 0.29 L, Estim Creat Clear Calc 158.15, Est GFR (MDRD) Af Amer 300, Est GFR (MDRD) Non-Af 248, BUN/Creatinine Ratio 17.3, Glucose 93, Calcium 8.2 L, Troponin I < 0.015 10/21/19 12:26: Urine Color Pending, Urine Clarity Pending, Urine pH Pending, Ur Specific [place] Pending, Urine Protein Pending, Urine Glucose (UA) Pending, Urine Ketones Pending, Urine Occult Blood Pending, Urine Nitrite Pending, Urine Bilirubin Pending, Urine Urobilinogen Pending, Ur Leukocyte Esterase Pending, Urine RBC Pending, Urine WBC Pending, Ur Squamous Epith Cells Pending, Urine Bacteria Pending, Urine Mucus Pending Diagnostic Data Chest X-Ray 10/21/19 10:42 IMPRESSION: Emphysema with right middle lobe pneumonia and a tiny right pleural effusion. Electronically Signed: Van Beck MD at 11:12 EDT Tel , Service support , Assessment/Plan All Active Problems COPD exacerbation (Acute) 64-year-old female admitted with a complaint of weakness. # Debility due to recent prolonged hospitalisation and illness [facility] OT. Fall precautions. Patient now agreeable to placement. #Leukocytosis: WBC 16.9. Patient was recently treated for pneumonia after being intubated and managed for acute hypoxic respiratory failure at [facility]. She was discharged home on steroids and she had been on steroids during admission as well for COPD exacerbation. That is likely what is the cause of this elevated leukocytosis as there is no clear evidence of infection now. Will monitor. #Thrombocytosis: Platelets are 921. Baseline platelets from 10/02/2019 was 699. Will consult hematology. #History of alcohol dependence: On thiamine 100 mg daily. Will add on folic acid. States she has not had a drink in a long while and was also recently on admission and just discharged yesterday. She developed low risk of withdrawal. #DVT prophylaxis: Lovenox Inpatient E&M: 87003 Init Hosp L2 Procedures: 32851 Advncd Care Plan 30 Min
[2019-10-21 12:47] LABS: Bacteria RARE /hpf (None Seen); Mucous, Urine RARE /hpf (<or=2+); Red Blood Cells-Urine 0-5 SEEN /hpf (0-5); Squamous Epithelial Cells - UA 5-10 SEEN /hpf (5-10); White Blood Cells 5-10 SEEN /hpf (0-5)
[2019-10-21 13:27] VITALS: BP 119/70; PULSE 86; RESP 17; TEMP 37.1; O2SAT 97
[2019-10-21 13:41] VITALS: BP 107/83; PULSE 98; RESP 18; TEMP 36.8; O2SAT 95
[2019-10-21 13:43] VITALS: BMI 16.4
[2019-10-21 13:55] VITALS: BMI 16.4
[2019-10-21 14:21] VITALS: RESP 18
[2019-10-21] MEDS: 0.9% Normal Saline 1,000 ML 120 ML IV ×2 (14:49→22:07)
[2019-10-21] MEDS: Acetaminophen 325 MG Tablet 650 MG PO (20:31)
[2019-10-21 20:34] VITALS: BP 120/59; PULSE 93; RESP 16; TEMP 36.6; O2SAT 95
[2019-10-21] MEDS: Pantoprazole Sodium 40 MG Tablet PO (22:07)
[2019-10-22] MEDS: Menthol/Lanolin/Calamine/Znox 113 GM Tube 1 APPLIC TOPICAL ×3 (03:50→20:30)
[2019-10-22 03:55] VITALS: BP 116/59; PULSE 89; RESP 16; TEMP 37.1; O2SAT 95
[2019-10-22 07:03] LABS: Absolute Lymphocyte Count 1.73 X10^3/uL (0.83-4.51); Basophil# 0.03 X10^3/uL; Basophil% 0.2 % (0-1); Eosinophil# 0.04 X10^3/uL; Eosinophils% 0.2 % (0-5); Hematocrit 29.5 % (37-47); Hemoglobin 9.3 g/dL (12.0-15.0); Lymphocyte # 1.73 X10^3/ul (4.0); Lymphocyte % 10.7 % (19-41); Mean Corp Hgb Conc 31.5 g/dL (32-36); Mean Corpuscular Hgb 27.5 pg (27.0-32.0); Mean Corpuscular Volume 87.3 fL (81-99); Mean Platelet Vol. 9.7 fl (6.2-12.0); Monocyte# 1.13 X10^3/uL; NRBC Flagged by Analyzer 0 % (0-5); Neutrophil # 13.04 X10^3/uL (2.7-7.7); Neutrophil % 80.8 % (47-70); POSITIVE COUNT YES; POSITIVE MORPHOLOGY YES; RBC Distribution Width CV 22.6 % (11.6-14.6); RBC Distribution Width SD 71.6 fl (35.1-43.9); Red Blood Count 3.38 M/mm3 (4.2-5.4); White Blood Count 16.1 K/mm3 (4.4-11.0)
[2019-10-22 07:04] LABS: Differential Indicated SCAN CRITERIA MET; Platelet Count 823 K/mm3 (150-450)
[2019-10-22 07:33] LABS: Anisocytosis 2+; Hypochromasia 2+; Macrocytosis RARE; Platelet Estimate MKD INC (ADEQ); Polychromasia 1+; Target Cells 1+
[2019-10-22 07:45] VITALS: BP 124/70; PULSE 78; RESP 16; TEMP 36.6; O2SAT 98
[2019-10-22] MEDS: Aspirin 81 MG TAB.CHEW PO (07:49)
[2019-10-22 08:02] LABS: Anion Gap 6 (5-15); BUN 3 mg/dL (7-18); BUN/Creat Ratio 10.8 RATIO (10-20); Calcium,Total 7.4 mg/dL (8.5-10.1); Chloride 113 mmol/L (98-107); Creatinine, Serum 0.28 mg/dL (0.55-1.02); EST Glomerular Filtration Rate 259 mL/min (>60); Est Glom Filt Rate - Afr Amer 314 mL/min (>60); Estimated Creatinine Clearance 150.52 ml/min; Glucose 76 mg/dL (74-106); Potassium 2.5 mmol/L (3.5-5.1); Sodium Level 142 mmol/L (136-145)
[2019-10-22 08:18] LABS: Magnesium 1.5 mg/dL (1.6-2.6)
[2019-10-22 09:00] LABS: Potassium 2.6 mmol/L (3.5-5.1)
--- NOTE | 2019-10-22 09:03 | ONC.CON.INP2 ---
- Problem List (1) Thrombocytosis Status: Acute (2) Anemia Status: Chronic (3) Leukocytosis Status: Acute (4) Iron deficiency anemia due to chronic blood loss Status: Chronic Consult Referring Physician: Hospitalist Consult Results: Abnormal CBC Subjective Date of Service:: 10/22/19 Chief Complaint: debility History of Present Illness: 64-year-old female admitted with debility and failure to thrive following a prolonged hospitalization at [facility] during which she was treated for pneumonia, severe anemia presumably from peptic ulcer disease. She had been a smoker and excessive alcohol user until recent hospitalization in [place]. Laboratory Tests 10/02/19 10/21/19 10/22/19 18:05 10:05 06:50 WBC 21.2 H 16.9 H 16.1 H Hgb 6.8 L 10.5 L 9.3 L Hct 22.5 L 34.0 L 29.5 L MCV 78.4 L 87.0 87.3 Plt Count 699 H 921 H* 823 H* Absolute Neuts (auto) 18.5 H 13.8 H 13.0 H Past Medical History: Chronic Problems Iron deficiency anemia due to chronic blood loss (Chronic) Alcohol abuse (Chronic) Severe protein-calorie malnutrition (Chronic) Tobacco use (Chronic) Anemia (Chronic) Past Medical/Surgical History: Past Medical History - Most Recent Inpatient Visit Past Medical History Start: 10/21/19 13:38 Text: Status: Complete Freq: ONCE Protocol: Document 10/21/19 13:55 MACK (Rec: 10/21/19 14:08 MACK [id number]) BMI Required to complete PMH What is Patient's BMI 16.4 Past Medical History Unable History Recalled No Query Text:Pt Unable/Family Not Present Neurologic Medical History Hx Stroke/TIA No Hx Dementia/Alzheimer's No Hx Parkinson's Disease No Hx Seizures No Hx Multiple Sclerosis No Hx Migraines No Cardiac Medical History VTE Present on Admission No Hx of Deep Vein Thrombosis/VTE/PE No Hx Hypertension No Hx Chest Pain/Angina No Hx Heart Attack No Hx Cardiac Surgery/Stents/Etc. No Hx Heart Failure No Hx Pacemaker/AICD No Hx Irregular Heartbeat and/or Afib No Hx Anticoagulant Therapy Yes: aspirin Query Text:(Coumadin, Aspirin, Plavix, Xarelto, etc.) Hx Pain in Legs when Walking/Leg Cramps No Respiratory Medical History Hx COPD Yes Hx Emphysema No Hx Smoking Yes Smoking Status Current every day smoker Tobacco Use Cigarettes Years Smoking 49 Packs Smoked per Day 1.5 Hx Smoking Exposure Yes Hx Tobacco Use in last 12 months Yes Sent to [facility] Yes Hx of Pipe Smoking No Hx of Cigar Smoking No Hx Sleep Apnea No Do you snore loudly (louder than talking No or can be heard through closed doors)? Do you often feel tired/ fatigued/ No sleepy during daytime? Has anyone observed you stop breathing No during sleep? STOP Results Negative GI Medical History Hx Ulcer No Hx Hepatitis No Hx Cirrhosis No Hx GI Bleed No Hx Unplanned Weight Loss No Genitourinary Medical History Indwelling Catheter in Place on Arrival/ No Admission Hx Renal Disease No Hx Dialysis No Musculoskeletal History Hx Arthritis No Hx Rheumatoid Arthritis No Endocrine Medical History Hx Diabetes No Hx Thyroid Disease No Hematologic Medical History Hx of Blood Transfusion No Hx of Transfusion in last 3 Months No Ever experience any problems with No transfusion(s)? Hx of Preganancy in last 3 Months N/A Nurse Filling Out Transfusion & JDIAL Questions: Date: 10/21/19 Time: 14:07 Psycho/Social Medical History Hx Depression No Hx Anxiety Yes Hx Behavior Disorder No Hx Alcohol Use Yes Hx Substance Use No Other Medical History Hx Blood Disorders No Hx Anemia No Hx Cancer No Hx Drug Resistant Organism No Wound/Pressure Injury Present on Arrival No /Admission Query Text:If yes, chart assessment in Shift/Clinical Findings Central Line/PICC/VAD Present on Arrival No /Admission Antibiotics within last 7 days? No Methicillin Resistant Staphylococcus aureus Screening Active MRSA No Risk for Readmission Number of Risk Factors 3 At Risk for Readmission Patient is At Risk For Readmission Patient is eligible for Call Back Y Maternal Family History: Diabetes Paternal Family History: Diabetes - Social History Lives: Alone Smoking Status: Current every day smoker Tobacco Use: Cigarettes Alcohol: None Drugs: None Allergies/Adverse Reactions: Allergy/AdvReac Type Severity Reaction Status Date / Time No Known Allergies Allergy Verified 10/21/19 09:54 Review of Systems Constitutional:: Reports: Weakness - Needs assistance with ADL, Fatigue, Weight loss. Denies: Fever, Sweats, Appetite change, Chills Cardiovascular:: Reports: Dyspnea on exertion. Denies: Chest pain, Palpitations, Orthopnea, PND, Shortness of breath Respiratory: Reports: Shortness of breath upon exertion. Denies: Cough, Hemoptysis, Shortness of Breath, Wheezing Gastrointestinal:: Denies: Abdominal pain, Nausea, Vomiting, Diarrhea, Constipation, Hematochezia Genitourinary: Denies: Dysuria, Hematuria, 15, Flank pain Musculoskeletal:: Denies: Back pain, Myalgia, Arthralgia Skin: Denies: Rash, Skin Changes, Wounds Neurological:: Denies: Headache, Dizziness, Visual changes, Tinnitus, Hearing loss Psychiatric: Denies: Anxiety, Depression, Homicidal Ideations, Suicidal Ideations Vital Signs Temperature 97.8 F 10/22/19 07:45 Temperature Source Oral 10/22/19 07:45 Pulse Rate 78 10/22/19 07:45 Pulse Strength Weak (1+) 10/22/19 07:44 Respiratory Rate 16 10/22/19 07:45 Respiratory Effort 10/22/19 07:36 Respiratory Depth Normal 10/22/19 07:36 Respiratory Pattern Normal 10/22/19 07:36 Blood Pressure 124/70 H 10/22/19 07:45 Blood Pressure Mean 88 10/22/19 07:45 Blood Pressure Source Monitor 10/22/19 07:45 Blood Pressure Position Semi-Fowlers 10/22/19 07:45 Blood Pressure Location Left Arm 10/22/19 07:45 Pulse Ox 98 10/22/19 07:45 Oxygen Delivery Method Room Air 10/22/19 07:45 - Physical Exam General: Alert, Oriented x3, Cooperative, No apparent distress, - - ECOG 3-4 HEENT: Atraumatic, PERRLA, EOMI, Normocephalic Oropharynx:: Pale mucosa, Dry mucosa Neck:: Supple, Trachea midline. Negative for: JVD, bilateral Cardiac:: Regular rate, Regular rhythm, Normal S1, Normal S2. Negative for: Murmur Lungs: Clear to auscultation, Excusion symmetrical. Negative for: Rhonchi, Wheezes Abdomen:: Soft, Non-tender, Non-distended. Negative for: Hepatosplenomegaly Extremities:: Negative for: Cyanosis, Edema Neurological: Neuro grossly intact Skin:: Ecchymosis. Negative for: Lesions, Rash, Petechiae Psychiatric:: Appropriate affect, Euthymic Lymphatics:: Negative for: Cervical lymphadenopathy, Supraclavicular lymphadenopathy, Axillary lymphadenopathy Laboratory Data: Laboratory Tests 10/22/19 10/22/19 10/22/19 Range/Units 08:40 06:50 06:50 WBC (4.4-11.0) K/mm3 RBC (4.2-5.4) M/mm3 Hgb (12.0-15.0) g/dL Hct (37-47) % MCV (81-99) fL MCH (27.0-32.0) pg MCHC (32-36) g/dL RDW Std Deviation (35.1-43.9) fl RDW Coeff of Lennox (11.6-14.6) % Plt Count (150-450) K/mm3 MPV (6.2-12.0) fl Immature Gran % (Auto) (0.0-0.9) % Neut % (Auto) (47-70) % Lymph % (Auto) (19-41) % [place] % (Auto) (0-10) % Eos % (Auto) (0-5) % Baso % (Auto) (0-1) % Absolute Neuts (auto) (2.0-7.7) X10^3/uL Absolute Lymphs (auto) (0.83-4.51) X10^3/uL Nucleated RBC % (0-5) % Differential Comment Diff Path Review Platelet Estimate (ADEQ) Polychromasia Hypochromasia Anisocytosis Macrocytosis Target Cells Sodium 142 (136-145) mmol/L Potassium 2.6 L* 2.5 L* (3.5-5.1) mmol/L Chloride 113 H (98-107) mmol/L Carbon Dioxide 23.0 (21.0-32.0) mmol/L Anion Gap 6 (5-15) BUN 3 L (7-18) mg/dL Creatinine 0.28 L (0.55-1.02) mg/dL Estim Creat Clear Calc 150.52 ml/min Est GFR (MDRD) Af Amer 314 (>60) mL/min Est GFR (MDRD) Non-Af 259 (>60) mL/min BUN/Creatinine Ratio 10.8 (10-20) RATIO Glucose 76 (74-106) mg/dL Calcium 7.4 L (8.5-10.1) mg/dL Magnesium 1.5 L (1.6-2.6) mg/dL Troponin I (<0.045) ng/mL Urine Color (Yellow) Urine Clarity (Clear) Urine pH (5.0 - 8.0) Ur Specific [place] (1.002-1.030) Urine Protein (Negative) mg/dl Urine Glucose (UA) (Normal) mg/dl Urine Ketones (Negative) mg/dl Urine Occult Blood (Negative) /ul Urine Nitrite (Negative) Urine Bilirubin (Negative) mg/dL Urine Urobilinogen (Normal) mg/dl Ur Leukocyte Esterase (Negative) /ul Urine RBC (0-5) /hpf Urine WBC (0-5) /hpf Ur Squamous Epith Cells (5-10) /hpf Urine Bacteria (None Seen) /hpf Urine Mucus (<or=2+) /hpf 10/22/19 10/21/19 10/21/19 Range/Units 06:50 12:26 10:05 WBC 16.1 H (4.4-11.0) K/mm3 RBC 3.38 L (4.2-5.4) M/mm3 Hgb 9.3 L (12.0-15.0) g/dL Hct 29.5 L (37-47) % MCV 87.3 (81-99) fL MCH 27.5 (27.0-32.0) pg MCHC 31.5 L (32-36) g/dL RDW Std Deviation 71.6 H (35.1-43.9) fl RDW Coeff of Lennox 22.6 H (11.6-14.6) % Plt Count 823 H* (150-450) K/mm3 MPV 9.7 (6.2-12.0) fl Immature Gran % (Auto) 1.100 H (0.0-0.9) % Neut % (Auto) 80.8 H (47-70) % Lymph % (Auto) 10.7 L (19-41) % [place] % (Auto) 7.0 (0-10) % Eos % (Auto) 0.2 (0-5) % Baso % (Auto) 0.2 (0-1) % Absolute Neuts (auto) 13.0 H (2.0-7.7) X10^3/uL Absolute Lymphs (auto) 1.73 (0.83-4.51) X10^3/uL Nucleated RBC % 0 (0-5) % Differential Comment Diff Path Review May foll Platelet Estimate MKD INC (ADEQ) Polychromasia 1+ Hypochromasia 2+ Anisocytosis 2+ Macrocytosis RARE Target Cells 1+ Sodium 140 (136-145) mmol/L Potassium 3.7 (3.5-5.1) mmol/L Chloride 110 H (98-107) mmol/L Carbon Dioxide 23.0 (21.0-32.0) mmol/L Anion Gap 7 (5-15) BUN 5 L (7-18) mg/dL Creatinine 0.29 L (0.55-1.02) mg/dL Estim Creat Clear Calc 158.15 ml/min Est GFR (MDRD) Af Amer 300 (>60) mL/min Est GFR (MDRD) Non-Af 248 (>60) mL/min BUN/Creatinine Ratio 17.3 (10-20) RATIO Glucose 93 (74-106) mg/dL Calcium 8.2 L (8.5-10.1) mg/dL Magnesium (1.6-2.6) mg/dL Troponin I < 0.015 (<0.045) ng/mL Urine Color Yellow (Yellow) Urine Clarity Clear (Clear) Urine pH 7.0 (5.0 - 8.0) Ur Specific [place] 1.010 (1.002-1.030) Urine Protein 15 H (Negative) mg/dl Urine Glucose (UA) Normal (Normal) mg/dl Urine Ketones 5 H (Negative) mg/dl Urine Occult Blood 10 H (Negative) /ul Urine Nitrite Negative (Negative) Urine Bilirubin Negative (Negative) mg/dL Urine Urobilinogen Normal (Normal) mg/dl Ur Leukocyte Esterase 25 H (Negative) /ul Urine RBC 0-5 SEEN (0-5) /hpf Urine WBC 5-10 SEEN (0-5) /hpf Ur Squamous Epith Cells 5-10 SEEN (5-10) /hpf Urine Bacteria RARE (None Seen) /hpf Urine Mucus RARE (<or=2+) /hpf 08/30/20 Range/Units 10:05 WBC 16.9 H (4.4-11.0) K/mm3 RBC 3.91 L (4.2-5.4) M/mm3 Hgb 10.5 L (12.0-15.0) g/dL Hct 34.0 L (37-47) % MCV 87.0 (81-99) fL MCH 26.9 L (27.0-32.0) pg MCHC 30.9 L (32-36) g/dL RDW Std Deviation 72.3 H (35.1-43.9) fl RDW Coeff of Lennox 23.0 H (11.6-14.6) % Plt Count 921 H* (150-450) K/mm3 MPV 10.5 (6.2-12.0) fl Immature Gran % (Auto) 0.800 (0.0-0.9) % Neut % (Auto) 81.3 H (47-70) % Lymph % (Auto) 9.6 L (19-41) % [place] % (Auto) 8.0 (0-10) % Eos % (Auto) 0.1 (0-5) % Baso % (Auto) 0.2 (0-1) % Absolute Neuts (auto) 13.8 H (2.0-7.7) X10^3/uL Absolute Lymphs (auto) 1.62 (0.83-4.51) X10^3/uL Nucleated RBC % 0 (0-5) % Differential Comment SCANNED Diff Path Review May foll Platelet Estimate MKD INC (ADEQ) Polychromasia Hypochromasia Anisocytosis Macrocytosis Target Cells Sodium (136-145) mmol/L Potassium (3.5-5.1) mmol/L Chloride (98-107) mmol/L Carbon Dioxide (21.0-32.0) mmol/L Anion Gap (5-15) BUN (7-18) mg/dL Creatinine (0.55-1.02) mg/dL Estim Creat Clear Calc ml/min Est GFR (MDRD) Af Amer (>60) mL/min Est GFR (MDRD) Non-Af (>60) mL/min BUN/Creatinine Ratio (10-20) RATIO Glucose (74-106) mg/dL Calcium (8.5-10.1) mg/dL Magnesium (1.6-2.6) mg/dL Troponin I (<0.045) ng/mL Urine Color (Yellow) Urine Clarity (Clear) Urine pH (5.0 - 8.0) Ur Specific [place] (1.002-1.030) Urine Protein (Negative) mg/dl Urine Glucose (UA) (Normal) mg/dl Urine Ketones (Negative) mg/dl Urine Occult Blood (Negative) /ul Urine Nitrite (Negative) Urine Bilirubin (Negative) mg/dL Urine Urobilinogen (Normal) mg/dl Ur Leukocyte Esterase (Negative) /ul Urine RBC (0-5) /hpf Urine WBC (0-5) /hpf Ur Squamous Epith Cells (5-10) /hpf Urine Bacteria (None Seen) /hpf Urine Mucus (<or=2+) /hpf Diagnostic Data: Diagnostic Data Chest X-Ray 10/21/19 10:42 IMPRESSION: Emphysema with right middle lobe pneumonia and a tiny right pleural effusion. Electronically Signed: Van Beck MD at 11:12 EDT Tel , Service support , Assessment and Plan 64-year-old female acutely hospitalized with debility and failure to thrive shortly following discharge from [facility] where she was treated for pneumonia, anemia and peptic ulcer disease (records of GI work-up not available). From the hematology point of view the patient has a leukocytosis, thrombocytosis and anemia. The findings are consistent with multiple factors includin. Reactive leukocytosis and thrombocytosis to acute illness and steroids. 2. Iron deficiency anemia. Most likely chronic and/or acute GI blood loss, work-up from [facility] not available at the time of this consultation need to be reviewed. 3. Anemia of inflammation and or chronic disease. Recommendations: From the hematology aspect: 1. Treat any acute inflammation/infection.. 2. IV iron at this time to avoid masking of recurrent GI bleed by discoloration of stools by oral iron. Oral iron in the future. 3 Obtain records from [facility] recent hospitalization and review any GI work-up. 4. Follow-up with hematology as outpatient 1 month after recovery from acute illness and rehabilitation. Impression and plan as above outlined discussed with patient. Shyanne Dixon MD Assistant Activities Director, [facility] Divisions of Medical Oncology & Hematology Department of Internal Medicine [place] [phone] This note was generated using a voice recognition system software. Although it was reviewed by the author prior to finalization, it may still contain incorrect words, spelling, and punctuation that were not noted when reviewing prior to saving. If a clinically significant typo or inaccurately typed phrase is noted, please notify the author. Medications: Prescriptions This Visit Medication Instructions Recorded Folic Acid 1 mg PO DAILY 10/21/19 Pantoprazole Sodium [Protonix] 40 mg PO BID 10/21/19 Prednisone 10 mg PO DAILY 10/21/19 Thiamine HCl [B-1] 100 mg PO DAILY 10/21/19 Medications Added to Medication List This Visit Category Date Time Status Aspirin [Aspirin, Baby] Med 10/22/19 08:00 Active 81 mg PO DAILY@0800 Enoxaparin [Lovenox] Med 10/22/19 10:00 Active 40 mg SC DAILY Ensure Enlive Med 10/22/19 10:00 Active 120 ml PO 4X/DAY Folic Acid Med 10/22/19 10:00 Active 1 mg PO DAILY Magnesium Sulfate 4gm/100mL Med 10/22/19 08:33 Ordered 4 gm in 100 ml IV X1 Menthol/Lanolin/Calamine/Znox [Calmoseptine Ointment] Med 10/22/19 06:00 Active 1 applic TOPICAL TID Potassium Chloride 10mEq/100mL Med 10/22/19 08:15 Active 10 meq in 100 ml IV BOLUS Q1H Thiamine Hydrochloride [Vitamin B1] Med 10/22/19 10:00 Active 100 mg PO DAILY predniSONE tablet Med 10/22/19 10:00 Active 10 mg PO DAILY Primary Care Provider: No Primary Care Phys Referring Provider:
[2019-10-22] MEDS: 0.9% Saline Lock 10 ML Syringe IV ×2 (09:17→22:57)
[2019-10-22] MEDS: Potassium Chloride 10mEq/100mL 10 MEQ/100 ML IV.SOLN. 100 MEQ IV BOLUS ×4 (09:20→13:19)
[2019-10-22] MEDS: Enoxaparin 40 MG/0.4 ML Syringe SC (09:22)
[2019-10-22] MEDS: Folic Acid 1 MG Tablet PO (09:22)
[2019-10-22] MEDS: Thiamine Hydrochloride 100 MG Tablet PO (09:22)
[2019-10-22] MEDS: predniSONE 10 MG Tablet PO (09:22)
[2019-10-22] MEDS: Pantoprazole Sodium 40 MG Tablet PO ×2 (09:22→20:31)
[2019-10-22 09:42] LABS: Pathologist Review Reviewed
[2019-10-22 09:43] LABS: Vitamin B12 964 pg/mL (211-911)
[2019-10-22 09:51] LABS: Ferritin 86 ng/mL (8-252); Iron 34 ug/dL (50-170); Iron Binding Capacity,Total 152 ug/dL (250-450); PERCENT IRON SATURATION 22.4 % (15.0-55.0)
--- NOTE | 2019-10-22 10:31 | PN_ITS ---
Patient Problems: Active and Suspected Problems Generalized weakness (Acute) Leukocytosis (Acute) Thrombocytosis (Acute) Subjective: Chief complaint: Follow-up after admission for physical debility and functional decline, thrombocytosis, severe hypokalemia, hypomagnesemia. Patient seen and examined. No acute events overnight. She denied any complaints apart from mild back pain because of the bed. Denied abdominal pain, nausea or vomiting. Denied constipation or diarrhea. Denied fever chills. Denied cough or sputum production. Her vital signs are stable. - Physical Exam Vitals/I&O's: Vital Signs Temp Pulse Resp BP Pulse Ox 97.8 F 78 16 124/70 H 98 10/22/19 07:45 10/22/19 07:45 10/22/19 07:45 10/22/19 07:45 10/22/19 07:45 Oxygen Delivery Method Room Air Weight: 104 lb 15.04 oz Body Mass Index (BMI) 16.4 Intake and Output for Last 24 Hours 10/20/19 10/21/19 10/22/19 23:59 23:59 23:59 Intake Total 876 / 876 1300 / 1300 Balance 876 / 876 1300 / 1300 General: Alert, Oriented x3, Cooperative, No apparent distress HEENT: Atraumatic, PERRLA, EOMI, Normocephalic Oral: Moist Mucosa, No Gingival or Mucosal Lesions/ Ulcerations Neck: Supple, No JVD, Negative Carotid Bruits, Trachea Midline, Thyroid Normal Size and Texture Lungs: Clear to auscultation, Normal air movement, No rhonchi, No wheeze, No rales, Diminished Cardiovascular: Regular rate, Regular Rhythm, Normal S1, Normal S2, PMI Normal Abdomen: Bowel Sounds Present, Soft, Non Tender, Non-Distended, No Hepato-splenomegaly Extremities: No clubbing, No cyanosis, No edema Skin: No rashes, No breakdown Lymphatic: No Cervical, Supraclavicular, or Inguinal Adenopathy Neurological: Cranial nerves II-XII grossly intact, Neuro grossly intact Psych/Mental Status: Normal Affect, Appropriate, Alert and oriented to time, place, person, mood and affect Laboratory Results 10/21/19 10:05: WBC 16.9 H, RBC 3.91 L, Hgb 10.5 L, Hct 34.0 L, MCV 87.0, MCH 26.9 L, MCHC 30.9 L, RDW Std Deviation 72.3 H, RDW Coeff of Lennox 23.0 H, Plt Count 921 H*, MPV 10.5, Immature Gran % (Auto) 0.800, Neut % (Auto) 81.3 H, Lymph % (Auto) 9.6 L, [place] % (Auto) 8.0, Eos % (Auto) 0.1, Baso % (Auto) 0.2, Absolute Neuts (auto) 13.8 H, Absolute Lymphs (auto) 1.62, Nucleated RBC % 0, Differential Comment SCANNED, Diff Path Review Reviewed, Platelet Estimate [employer] 10/21/19 10:05: Sodium 140, Potassium 3.7, Chloride 110 H, Carbon Dioxide 23.0, Anion Gap 7, BUN 5 L, Creatinine 0.29 L, Estim Creat Clear Calc 158.15, Est GFR (MDRD) Af Amer 300, Est GFR (MDRD) Non-Af 248, BUN/Creatinine Ratio 17.3, Glucose 93, Calcium 8.2 L, Troponin I < 0.015 10/21/19 12:26: Urine Color Yellow, Urine Clarity Clear, Urine pH 7.0, Ur Specific [place] 1.010, Urine Protein 15 H, Urine Glucose (UA) Normal, Urine Ketones 5 H, Urine Occult Blood 10 H, Urine Nitrite Negative, Urine Bilirubin Negative, Urine Urobilinogen Normal, Ur Leukocyte Esterase 25 H, Urine RBC 0-5 SEEN, Urine WBC 5-10 SEEN, Ur Squamous Epith Cells 5-10 SEEN, Urine Bacteria RARE, Urine Mucus RARE 10/22/19 06:50: WBC 16.1 H, RBC 3.38 L, Hgb 9.3 L, Hct 29.5 L, MCV 87.3, MCH 27.5, MCHC 31.5 L, RDW Std Deviation 71.6 H, RDW Coeff of Lennox 22.6 H, Plt Count 823 H*, MPV 9.7, Immature Gran % (Auto) 1.100 H, Neut % (Auto) 80.8 H, Lymph % (Auto) 10.7 L, [place] % (Auto) 7.0, Eos % (Auto) 0.2, Baso % (Auto) 0.2, Absolute Neuts (auto) 13.0 H, Absolute Lymphs (auto) 1.73, Nucleated RBC % 0, Diff Path Review May foll, Platelet Estimate MKD INC, Polychromasia 1+, Hypochromasia 2+, Anisocytosis 2+, Macrocytosis RARE, Target Cells 1+ 10/22/19 06:50: Sodium 142, Potassium 2.5 L*, Chloride 113 H, Carbon Dioxide 23.0, Anion Gap 6, BUN 3 L, Creatinine 0.28 L, Estim Creat Clear Calc 150.52, Est GFR (MDRD) Af Amer 314, Est GFR (MDRD) Non-Af 259, BUN/Creatinine Ratio 10.8, Glucose 76, Calcium 7.4 L 10/22/19 06:50: Magnesium 1.5 L 10/22/19 08:40: Potassium 2.6 L* 10/22/19 08:40: Vitamin B12 964 H 10/22/19 08:40: Iron 34 L, TIBC 152 L, Iron Saturation 22.4, Ferritin 86, Folate 17.80 Clinical Impression(s) from Imaging Studies Chest X-Ray 10/21/19 10:42 IMPRESSION: Emphysema with right middle lobe pneumonia and a tiny right pleural effusion. Electronically Signed: Van Beck MD at 11:12 EDT Tel , Service support , Current Medications Acetaminophen (Tylenol) 650 mg PO Q6H PRN PRN PRN Reason: Pain Score 1-10/Temp > 100.7 F Last Admin: 10/21/19 20:31 Dose: 650 mg Documented by: Albuterol Sulfate (Ventolin Aerosols) 2.5 mg INHALATION Q4H PRN PRN PRN Reason: SHORTNESS OF BREATH Aspirin (Aspirin, Baby) 81 mg PO DAILY@0800 [facility] Last Admin: 10/22/19 07:49 Dose: 81 mg Documented by: Calamine/Phenol (Calmoseptine Ointment) 1 applic TOPICAL TID [facility]; Protocol Last Admin: 10/22/19 03:50 Dose: 1 applicatio Documented by: Enoxaparin Sodium (Lovenox) 40 mg SC DAILY [facility] Last Admin: 10/22/19 09:22 Dose: 40 mg Documented by: Folic Acid (Folic Acid) 1 mg PO DAILY [facility] Last Admin: 10/22/19 09:22 Dose: 1 mg Documented by: Potassium Chloride () 10 meq in 100 mls @ 100 mls/hr IV BOLUS Q1H GONZALEZ Stop: 10/22/19 12:14 Last Admin: 10/22/19 10:29 Dose: 100 mls/hr Documented by: Magnesium Sulfate () 4 gm in 100 mls @ 25 mls/hr IV X1 ONE Stop: 10/22/19 12:32 Nitroglycerin (Nitrostat) 0.4 mg SUBLINGUAL Q5M PRN PRN Reason: CARDIAC/CHEST PAIN Nutritional Formula (Lactose Free) (Ensure Enlive) 120 ml PO 4X/DAY [facility] Last Admin: 10/22/19 10:31 Dose: Not Given Documented by: Ondansetron HCl (Zofran) 4 mg IV Q8H PRN PRN PRN Reason: NAUSEA/VOMITING Pantoprazole Sodium (Protonix) 40 mg PO BID [facility] Last Admin: 10/22/19 09:22 Dose: 40 mg Documented by: Prednisone () 10 mg PO DAILY [facility] Last Admin: 10/22/19 09:22 Dose: 10 mg Documented by: Sodium Chloride () 10 - 40 ml IV UD PRN PRN Reason: SALINE FLUSH Last Admin: 10/22/19 09:17 Dose: 10 ml Documented by: Thiamine HCl (Vitamin B1) 100 mg PO DAILY [facility] Last Admin: 10/22/19 09:22 Dose: 100 mg Documented by: Medical Necessity - Tobacco Use Smoking Status: Current every day smoker Tobacco Use: Cigarettes Assessment/Plan All Active Problems Generalized weakness (Acute) Leukocytosis (Acute) Thrombocytosis (Acute) This is a 64 years old female patient presented to the emergency room because of debility and weakness in context of recent admission to [facility] for pneumonia and COPD exacerbation complicated by acute hypoxic respiratory failure, was intubated and she was found to have thrombocytosis, severe hypokalemia and hypomagnesemia. #1 physical debility/functional decline: Due to recent prolonged hospital stay at [facility] for pneumonia, COPD exacerbation that required intubation mechanical ventilation. Admission chest x-ray reviewed, no active pneumonia. Patient has been afebrile and her leukocytosis likely due to steroids. She has been afebrile, other vital signs are stable, pulse ox is 98% on room air. Plan for PT OT evaluation and treatment, [facility]. #2 severe hypokalemia/hypomagnesemia: Probably due to poor oral intake. Plan to replace potassium with IV potassium chloride, replace magnesium with IV magnesium sulfate, repeat BMP and serum magnesium tomorrow morning. #3 thrombocytosis: This is probably reactive secondary to recent history of pneumonia. Oncology consulted, awaiting their recommendations. #4 chronic anemia: It is iron deficiency anemia. Hemoglobin and hematocrit are stable. Oncology ordered IV iron supplements today. #5 history of alcohol abuse: Patient stated that she had no drink for long time. She is on folic acid and thiamine. No evidence of acute withdrawal. #6 COPD: Clinically stable, pulse ox is maintained on room air. She is on albuterol PRN. #7 DVT prophylaxis: Subcu Lovenox. This note was generated with [employer] dictation software. It may contain incorrect words, spelling, and punctuation that were not noted in checking the note before signing. Inpatient E&M: [id number] Subs Hosp L2
--- NOTE | 2019-10-22 10:44 | CASEMGMT ---
Social Work Assessment Referral Date: 10/22/2019 Date of Assessment: 10/22/2019 Reason for consult: SNF placement Informant: Personal Status: SW met with pt to complete initial assessment. SW introduced self and role at [facility]. Pt is alert and orientated x3. Pt states that she lives alone in a one story home with four steps to enter the home. Pt states that she was previously independent with ADLs, states she still drives. DME: Pt denied. Pt then states she has a walker but doesn't use it. PCP: Pt states she just recently changed PCP, is unsure of her new PCP is yet as she hasn't met the new PCP yet. Pt states her PCP used to be [facility] at [place]. Pharmacy is [facility]. Substance Abuse Hx: Pt denied Mental Health Hx: Pt denied HHC: None SNF: None SW spoke with pt regarding discharge plans. Pt states she wants to stay at [facility] for TCU. SW explained that this worker is not sure if TCU has any beds available at this time and pt cannot stay at [facility] until a bed opens up. DEVIKA provided pt with list of SNF that accept pt's insurance. Pt states she wants a private room at SNF. SW explained that [facility] has all private rooms and the other's SNFs it just depends on bed availability. Pt agreeable to [facility] if TCU doesn't have any beds. DEVIKA placed a call to M[facility] in TCU. TCU may have a bed available tomorrow but will let this worker know once it is confirmed if TCU will have a bed or not tomorrow. DEVIKA waiting for call back from TCU. It TCU is not able to accept pt, DEVIKA Will send referral to [facility]. Plan: SNF pending acceptance and pre-cert Jennie Marte [employer]OD, KILN DOOR REPAIRER
[2019-10-22] MEDS: Magnesium Sulfate 4gm/100mL 4 GM/100 ML IV.SOLN. IV (11:11)
[2019-10-22 14:00] VITALS: BP 114/73; PULSE 98; RESP 18; TEMP 36.7; O2SAT 95
--- NOTE | 2019-10-22 14:01 | CHAPLAIN ---
Type of Pastoral Visit _x__ Initial Visit ___ Follow-up Visit ___ On-call Visit ___ General Patient Visit ___ Spiritual Assessment ___ Family Conference ___ Bereavement ___ Rapid Response ___ Code Blue ___ Other (describe below) Pastoral Care Referral From _x__ Patient ___ Family ___ Nurse ___ Physician ___ Quotation Checker ___ Bar Tacker ___ Other (describe below) Sacrament/Intervention ___ Active listening ___ Anointing ___ Christianity ___ Bereavement ___ Communion ___ Radha exploration ___ ___ Life review ___ Prayer ___ Reconciliation ___ Sacrament of Sick _x__ Supportive presence ___ Wedding ___ Other (describe below) Pastoral Comments patient states I'm ok. I just want to nap after I finish my lunch. pt is currently eating lunch; offered support in future if desired
--- NOTE | 2019-10-22 14:44 | CASEMGMT ---
Addendum entered by Jennie Marte 10/22/19 16:21: DEVIKA received call from Lula at [facility] stating they are able to accept pt and will submit for pre-cert. SW in to speak with pt. DEVIKA updated pt that at this time, there are no beds on TCU. Pt agreeable to [facility]. DEVIKA placed a call to M[facility]ayla in TCU and left message to take pt off TCU list. Plan: [facility] pending pre-cert Original Note: Social Work Note DEVIKA placed a call to [facility] in TCU. [facility] states that this time, she has no beds available. A bed may be available tomorrow but it still unclear if the bed will be available. DEVIKA placed a call to Lula at [facility] and left message regarding referral. DEVIKA faxed referral. DEVIKA updated charge nurse that COVID test will need to be ordered. Plan: SNF pending acceptance and pre-cert Jennie Marte BAKER HELPER, GUYLINE OPERATOR
[2019-10-22] MEDS: Sodium Ferric Gluconat 250 MG in 0.9% Normal Saline 250 ML 135 MG IV (14:47)
[2019-10-22 16:50] LABS: Probe Check PASS; Specimen Processing Control PASS
[2019-10-22 20:27] VITALS: BP 124/69; PULSE 83; RESP 18; TEMP 36.4; O2SAT 95
[2019-10-22] MEDS: Acetaminophen 325 MG Tablet 650 MG PO (21:36)
[2019-10-22] MEDS: Zolpidem Tartrate 5 MG Tablet PO (22:57)
[2019-10-23 02:25] VITALS: BP 122/74; PULSE 93; RESP 16; TEMP 36.8; O2SAT 92
[2019-10-23] MEDS: Menthol/Lanolin/Calamine/Znox 113 GM Tube 1 APPLIC TOPICAL ×2 (03:17→14:12)
[2019-10-23] MEDS: Acetaminophen 325 MG Tablet 650 MG PO ×2 (06:44→12:42)
[2019-10-23 07:01] LABS: Anion Gap 6 (5-15); BUN 4 mg/dL (7-18); BUN/Creat Ratio 15.4 RATIO (10-20); Calcium,Total 7.4 mg/dL (8.5-10.1); Chloride 113 mmol/L (98-107); Creatinine, Serum 0.26 mg/dL (0.55-1.02); EST Glomerular Filtration Rate 280 mL/min (>60); Est Glom Filt Rate - Afr Amer 339 mL/min (>60); Glucose 78 mg/dL (74-106); Magnesium 1.9 mg/dL (1.6-2.6); Potassium 2.6 mmol/L (3.5-5.1); Sodium Level 142 mmol/L (136-145)
[2019-10-23 08:25] VITALS: BP 124/77; PULSE 96; RESP 18; TEMP 36.8; O2SAT 95
[2019-10-23] MEDS: Potassium Chloride 10mEq/100mL 10 MEQ/100 ML IV.SOLN. 100 MEQ IV BOLUS ×2 (08:53→10:02)
[2019-10-23] MEDS: Aspirin 81 MG TAB.CHEW PO (08:53)
[2019-10-23] MEDS: Folic Acid 1 MG Tablet PO (08:54)
[2019-10-23] MEDS: predniSONE 10 MG Tablet PO (08:54)
[2019-10-23] MEDS: Pantoprazole Sodium 40 MG Tablet PO (08:54)
[2019-10-23] MEDS: Thiamine Hydrochloride 100 MG Tablet PO (08:54)
[2019-10-23] MEDS: Enoxaparin 40 MG/0.4 ML Syringe SC (08:54)
[2019-10-23 11:48] LABS: Absolute Neutrophil Count 12.9 X10^3/uL (2.0-7.7); Basophil# 0.03 X10^3/uL; Basophil% 0.2 % (0-1); Eosinophil# 0.02 X10^3/uL; Eosinophils% 0.1 % (0-5); Hematocrit 27.8 % (37-47); Lymphocyte % 9.4 % (19-41); Mean Corp Hgb Conc 32.4 g/dL (32-36); Mean Corpuscular Hgb 28.4 pg (27.0-32.0); Mean Corpuscular Volume 87.7 fL (81-99); Mean Platelet Vol. 10.1 fl (6.2-12.0); Monocyte# 1.35 X10^3/uL; Monocyte% 8.5 % (0-10); NRBC Flagged by Analyzer 0 % (0-5); Neutrophil # 12.92 X10^3/uL (2.7-7.7); Neutrophil % 80.9 % (47-70); POSITIVE MORPHOLOGY YES; Platelet Count 719 K/mm3 (150-450); RBC Distribution Width CV 23.4 % (11.6-14.6); RBC Distribution Width SD 72.8 fl (35.1-43.9); Red Blood Count 3.17 M/mm3 (4.2-5.4)
[2019-10-23 11:49] LABS: Differential Indicated SCAN CRITERIA MET
--- NOTE | 2019-10-23 11:52 | CASEMGMT ---
Addendum entered by Jennie Marte 10/23/19 14:38: DEVIKA received call from Lula at [facility] stating their tanker truck driver is done for the day, unavailable to transport pt. SW in to speak with pt. SW updated pt on wheelchair van vs cot transport and how wheelchair van will be private pay. Pt agreeable to wheelchair van transport. DEVIKA placed a call to [facility] and arranged transportation via wheelchair van for 3:30pm. Transportation form completed and placed on SNF folder and copy on pt's chart. DEVIKA updated pt and RN on transportation time. DEVIKA placed a call to Lula at [facility] and updated her on transportation time. Plan: [facility] skilled today with [facility] pt at 3:30pm SANGEETHA Chairez Addendum entered by Jennie Marte 10/23/19 13:18: DEVIKA faxed completed discharge paperwork to [facility] including transfer to extended care facility, signed medication list and any scripts. Original in SNF folder and copy on pt's chart. DEVIKA completed [facility] in [facility]. Original in SNF folder and copy on pt's chart. DEVIKA completed COVID screening tool and faxed tool with negative COVID results to Lula at [facility]. DEVIKA spoke with RN, pt can transport likely by wheelchair van. DEVIKA placed a call to Lula at [facility] and asked if [facility] pt. Lula states she will check with their tanker truck driver and then let this worker know. DEVIKA waiting for call back. Original Note: Social Work Note DEVIKA received call from Lula at [facility] stating pre-cert has been obtained and pt is able to discharge today. Physician updated. DEVIKA will fax discharge paperwork once completed. Plan: [facility] skilled today SANGEETHA Chairez
--- NOTE | 2019-10-23 11:53 | PCM.TXEXTCAR ---
- Diet 10/21/19 13:53 Diet: Regular - General Food consistency:: Regular Liquid Consistency:: Regular/Thin - Routine Orders/Code Status Code Status: Full Code - Wound(s) LEFT BUTTOCK Wound Type: Pressure Injury rt knee lateral Wound Type: Abrasion - Suggestions for Active Care Change Position every (hours): 3 Hours to sit in a chair: 2 Times a day to sit in chair: 3 - Therapies Weight Bearing: Weight bearing as tolerated Physical Therapy: Eval and Treat Occupational Therapy: Eval and Treat - Allergies/Procedures Done in Hospital Allergies/Adverse Reactions: Allergies No Known Allergies Allergy (Verified 10/21/19 09:54) - Type of Care/Length of Stay Estimated LOS: Convalescent Care Less Than 30 days Type of Care Needed: Skilled Rehab Potential: Fair Prognosis: Fair - Additional Orders/Day of Discharge H&P will serve as current which was dated: 10/21/19 Day of Discharge: 10/23/19 - Follow Up Care Primary Care Physician: Care Physician,No Primary [Primary Care Provider] - Please follow up with your Primary Care Physician in: 1 week.
--- NOTE | 2019-10-23 11:54 | DS.PCM_ITS ---
Discharge Date and Diagnosis - Problem List Patient Problems: Active and Suspected Problems Generalized weakness (Acute) Leukocytosis (Acute) Thrombocytosis (Acute) Date of Admission: 10/21/19 Date of Discharge: 10/23/19 - Primary Discharge Diagnosis Acute Problems: Active Problems #1 physical debility/functional decline. #2 severe hypokalemia/hypomagnesemia. #3 thrombocytosis, likely reactive secondary to acute recent illness with pneumonia. #4 chronic anemia. - Secondary Discharge Diagnosis Chronic Problems: Chronic Problems Iron deficiency anemia due to chronic blood loss (Chronic) Alcohol abuse (Chronic) Severe protein-calorie malnutrition (Chronic) Tobacco use (Chronic) Anemia (Chronic) Hospital Course and Treatment Imaging Results: Clinical Impression(s) from Imaging Studies Chest X-Ray 10/21/19 10:42 IMPRESSION: Emphysema with right middle lobe pneumonia and a tiny right pleural effusion. Electronically Signed: Van Beck MD at 11:12 EDT Tel , Service support , , hematology. Operations: None Procedures: None Summary of Care Provided: Patient seen and examined on the day of discharge and appeared to be stable to be discharged to intermediate facility. Apart from insomnia, she has no complaints. Has been ambulating without any significant symptoms apart from weakness. Her vital signs are stable. The patient is a 64 year old F presented to the emergency room because of weakness and debility in context of recent admission to [facility] for pneumonia and COPD exacerbation which was complicated by acute hypoxic r espiratory failure, was intubated and was on mechanical ventilation. Patient was found to have significant thrombocytosis, leukocytosis and electrolyte abnormalities. Chest x-ray done and showed no active pneumonia, revealed emphysema. Patient remained afebrile throughout admission. Leukocytosis attributed to being on steroids. When I questioned the patient about the prednisone, she said she is not sure why she is on prednisone. Patient's family member was at the bedside on the day of discharge and she mentioned that she was informed that patient should start taking prednisone on October 24, 2019 but she is not sure why they prescribed prednisone. She never been on long-term steroids in the past. She was found to have severe hypokalemia as well as hypomagnesemia. There was no obvious reason apart from poor oral intake. Patient was not on diuretics. On admission, potassium was 3.7. Next day, potassium came down to 2.5 and repeat potassium was 2.6. Patient was given 4K riders and potassium on the day of discharge remained at 2.6. On the day of discharge, she was given K. Dur 60 mEq p.o. x1 as well as 2K riders and repeat potassium was 4 mmol/L, normalized. Serum magnesium was 1.5 which was replaced and corrected. Hematology consulted for significant thrombocytosis and anemia. Hematology recommended IV iron sucrose which was given to the patient and recommended oral iron supplement in the future but not now. Patient discharged to intermediate facility in a stable condition after high potassium replaced and corrected, discharged on small dose of K. Dur 10 mEq p.o. daily, prednisone discontinued, started on melatonin for insomnia, continued on her previous home medications, recommended follow-up with PCP in 1 week. Patient Problems: Active and Suspected Problems Generalized weakness (Acute) Leukocytosis (Acute) Thrombocytosis (Acute) - Physical Exam Vitals/I&O's: Vital Signs Temp Pulse Resp BP Pulse Ox 98.2 F 96 18 124/77 H 95 10/23/19 08:25 10/23/19 08:25 10/23/19 08:25 10/23/19 08:25 10/23/19 08:25 Oxygen Delivery Method Room Air Weight: 104 lb 15.04 oz Body Mass Index (BMI) 16.4 Intake and Output for Last 24 Hours 10/21/19 10/22/19 10/23/19 23:59 23:59 23:59 Intake Total / 1969 200 / 200 Balance 1969 200 / 200 General: Alert, Oriented x3, Cooperative, No apparent distress HEENT: Atraumatic, PERRLA, EOMI, Normocephalic Oral: Moist Mucosa, No Gingival or Mucosal Lesions/ Ulcerations Neck: Supple, No JVD, Negative Carotid Bruits Lungs: Clear to auscultation, Normal air movement, No rhonchi, No wheeze, No rales, Diminished Cardiovascular: Regular rate, Regular Rhythm, Normal S1, Normal S2, PMI Normal Abdomen: Bowel Sounds Present, Soft, Non Tender, Non-Distended, No Hepato- splenomegaly Extremities: No clubbing, No cyanosis, No edema Skin: No rashes, No breakdown Neurological: Cranial nerves II-XII grossly intact, Neuro grossly intact Psych/Mental Status: Normal Affect, Appropriate Laboratory Results 10/22/19 15:10: COVID-19 (TEJAS) Negative 10/23/19 05:50: WBC 16.0 H, RBC 3.17 L, Hgb 9.0 L, Hct 27.8 L, MCV 87.7, MCH 28.4, MCHC 32.4, RDW Std Deviation 72.8 H, RDW Coeff of Lennox 23.4 H, Plt Count 719 H, MPV 10.1, Immature Gran % (Auto) 0.900, Neut % (Auto) 80.9 H, Lymph % (Auto) 9.4 L, [place] % (Auto) 8.5, Eos % (Auto) 0.1, Baso % (Auto) 0.2, Absolute Neuts (auto) 12.9 H, Absolute Lymphs (auto) 1.50, Nucleated RBC % 0 10/23/19 05:50: Sodium 142, Potassium 2.6 L*, Chloride 113 H, Carbon Dioxide 23.0, Anion Gap 6, BUN 4 L, Creatinine 0.26 L, Estim Creat Clear Calc 162.10, Est GFR (MDRD) Af Amer 339, Est GFR (MDRD) Non-Af 280, BUN/Creatinine Ratio 15.4, Glucose 78, Calcium 7.4 L, Magnesium 1.9 10/23/19 11:30: Potassium 4.0 Current Medications Acetaminophen (Tylenol) 650 mg PO Q6H PRN PRN PRN Reason: Pain Score 1-10/Temp > 100.7 F Last Admin: 10/23/19 06:44 Dose: 650 mg Documented by: Albuterol Sulfate (Ventolin Aerosols) 2.5 mg INHALATION Q4H PRN PRN PRN Reason: SHORTNESS OF BREATH Aspirin (Aspirin, Baby) 81 mg PO DAILY@0800 [facility] Last Admin: 10/23/19 08:53 Dose: 81 mg Documented by: Calamine/Phenol (Calmoseptine Ointment) 1 applic TOPICAL TID [facility]; Protocol Last Admin: 10/23/19 03:17 Dose: 1 applicatio Documented by: Enoxaparin Sodium (Lovenox) 40 mg SC DAILY [facility] Last Admin: 10/23/19 08:54 Dose: 40 mg Documented by: Folic Acid (Folic Acid) 1 mg PO DAILY [facility] Last Admin: 10/23/19 08:54 Dose: 1 mg Documented by: Sodium Chloride () 250 mls @ 15 mls/hr IV .[id number] PRN PRN Reason: Saline Flush Last Admin: 10/23/19 08:53 Dose: 40 mls/hr Documented by: Sodium Chloride () 250 mls @ 15 mls/hr IV .[id number] PRN PRN Reason: Additional IVPB Infusion Melatonin (Melatonin) 3 mg PO QHS [facility] Nitroglycerin (Nitrostat) 0.4 mg SUBLINGUAL Q5M PRN PRN Reason: CARDIAC/CHEST PAIN Nutritional Formula (Lactose Free) (Ensure Enlive) 120 ml PO 4X/DAY [facility] Last Admin: 10/23/19 08:54 Dose: Not Given Documented by: Ondansetron HCl (Zofran) 4 mg IV Q8H PRN PRN PRN Reason: NAUSEA/VOMITING Pantoprazole Sodium (Protonix) 40 mg PO BID [facility] Last Admin: 10/23/19 08:54 Dose: 40 mg Documented by: Prednisone () 10 mg PO DAILY [facility] Last Admin: 10/23/19 08:54 Dose: 10 mg Documented by: Sodium Chloride () 10 - 40 ml IV UD PRN PRN Reason: SALINE FLUSH Last Admin: 10/22/19 22:57 Dose: 10 ml Documented by: Thiamine HCl (Vitamin B1) 100 mg PO DAILY [facility] Last Admin: 10/23/19 08:54 Dose: 100 mg Documented by: Zolpidem Tartrate (Ambien (Generic)) 5 mg PO QHS PRN PRN PRN Reason: INSOMNIA Last Admin: 10/22/19 22:57 Dose: 5 mg Documented by: Home Medications: Medications to take at Discharge Albuterol Sulfate [Albuterol Sulfate HFA] 2 puff INHALATION Q4H PRN PRN 10/02/19 Aspirin [Aspirin, Baby] 81 mg PO DAILY@0800 10/02/19 Folic Acid 1 mg PO DAILY 10/21/19 Pantoprazole Sodium [Protonix] 40 mg PO BID 10/21/19 Thiamine HCl [B-1] 100 mg PO DAILY 10/21/19 Melatonin 3 mg PO QHS #30 tab 10/23/19 Potassium Chloride [K-Dur] 10 meq PO DAILY #10 tab 10/23/19 Following Prescriptions Were Given to Patient: Potassium Chloride [K-Dur] 10 meq PO DAILY #10 tab Prescription Printed Melatonin 3 mg PO QHS #30 tab Prescription Printed Primary Care Physician: Care Physician,No Primary [Primary Care Provider] - Please follow up with your Primary Care Physician in: 1 week. Disposition: Jail facility Minutes spent on discharge:: 32 Patient Condition:: Stable Medical Necessity - Tobacco Use Smoking Status: Current every day smoker Tobacco Use: Cigarettes Meaningful Use Info Meaningful Use Diagnoses (Choose all that apply): None applicable Inpatient E&M: 90979 Disch Hosp
[2019-10-23 12:19] LABS: Anisocytosis 1+
[2019-10-23 13:57] LABS: Pathologist Review Reviewed
--- NOTE | 2019-10-23 14:08 | NT.THERAPY_ITS ---
Nutrition Therapy Report - History Current diet / nutrition support order:: regular;120mL ensure enlive 4x/day - Anthropometric Measurements Height:: 5 ft 7 in Weight:: 47.6 kg Body Mass Index (BMI):: 16.4 - Relevant Labs Relevant Labs:: WBC 16.0 K/mm3 (4.4-11.0) H 10/23/19 05:50 RBC 3.17 M/mm3 (4.2-5.4) L 10/23/19 05:50 Hgb 9.0 g/dL (12.0-15.0) L 10/23/19 05:50 Hct 27.8 % (37-47) L 10/23/19 05:50 MCH 26.9 pg (27.0-32.0) L 10/21/19 10:05 MCHC 31.5 g/dL (32-36) L 10/22/19 06:50 RDW Std Deviation 72.8 fl (35.1-43.9) H 10/23/19 05:50 RDW Coeff of Lennox 23.4 % (11.6-14.6) H 10/23/19 05:50 Plt Count 719 K/mm3 (150-450) H 10/23/19 05:50 Immature Gran % (Auto) 1.100 % (0.0-0.9) H 10/22/19 06:50 Neut % (Auto) 80.9 % (47-70) H 10/23/19 05:50 Lymph % (Auto) 9.4 % (19-41) L 10/23/19 05:50 Absolute Neuts (auto) 12.9 X10^3/uL (2.0-7.7) H 10/23/19 05:50 Potassium 2.6 mmol/L (3.5-5.1) L* 10/23/19 05:50 Chloride 113 mmol/L (98-107) H 10/23/19 05:50 BUN 4 mg/dL (7-18) L 10/23/19 05:50 Creatinine 0.26 mg/dL (0.55-1.02) L 10/23/19 05:50 Calcium 7.4 mg/dL (8.5-10.1) L 10/23/19 05:50 Magnesium 1.5 mg/dL (1.6-2.6) L 10/22/19 06:50 Iron 34 ug/dL (50-170) L 10/22/19 08:40 TIBC 152 ug/dL (250-450) L 10/22/19 08:40 Vitamin B12 964 pg/mL (211-911) H 10/22/19 08:40 - Assessment Food / Nutrition-Related History:: Pt recently hospitalized w/ severe resp. failure requiring intubation. Pt states appetite/intake over past 6 months has been poor d/t COVID- quarantine. Describes food at [facility] as nasty w/ poor PO intake as a result. Claims to have had diarrhea last night from Ensure. No special diet followed normally at home. Believes she has lost wt but is unsure of UBW. Nutrition-focused physical exam indicates severe muscle wasting/fat loss in clavicles, orbital, occipital region. - Nutrition Diagnosis Problem / Etiology / Signs & Symptoms (PES):: Severe acute malnutrition related to inadequate energy intake during COVID- pandemic stay at home order as evidenced by estimated PO intake meeting less than 50% of estimated energy needs for 6 months based on diet recall, nutrition focused physical exam showing severe muscle wasting and fat loss in orbital, clavicle, and occipital areas. Given recent acute illness, pt w/ elevated risk for refeeding syndrome. Evidence of Malnutrition Exists:: Yes Severe PCM:: Social & Environmental circumstances - Nutrition Intervention Nutrition Prescription:: [id number] calories/day, 50-60 g protein/day - Food / Nutrient Delivery Interventions Summary of nutrition intervention:: Discussed w/ patient how diarrhea may not be entirely related to Ensure consumption. Pt recently on antibiotics. Pt not agreeable to other offers of ONS. Encouraged adequate PO intake at meals to assist pt w/ regaining strength after acute illness. Pt agreeable to 2% milk w/ breakfast. Assisted pt w/ lunch order. Pending discharge to SNF. Nutrition support ordered as / adjusted to:: continue regular diet; encouraged PO intake at meals. Pt continues to decline ONS. Will provide 2% milk at breakfast. Recommend probiotic given recent diarrhea. Nutrition education provided?: Yes - MNT Monitoring Further MNT monitoring and evaluation required?: Yes MNT Follow-up in:: 3-5 days
[2019-10-23 14:11] VITALS: BMI 16.4
[2019-10-23 14:20] VITALS: BP 122/68; PULSE 99; RESP 18; TEMP 36.7; O2SAT 95
== END 2019-10-23 15:35 | disposition skilled nursing facility (03) | DRG 884 ==
LOC: ED 10:51 → MS3 12:58
PROVIDERS: Internal Medicine Hematology & Oncology; Admitting Provider Student in an Organized Health Care Education/Training Program; Emergency Provider Emergency Medicine; Visit Provider Hospitalist
DX: R54 Age-related physical debility (principal); E43 Unspecified severe protein-calorie malnutrition; Z68.1 Body mass index [BMI] 19.9 or less, adult; R62.7 Adult failure to thrive; T38.0X5A Adverse effect of glucocorticoids and synthetic analogues, initial encounter; D72.829 Elevated white blood cell count, unspecified; J44.9 Chronic obstructive pulmonary disease, unspecified; D47.3 Essential (hemorrhagic) thrombocythemia; E87.6 Hypokalemia; E83.42 Hypomagnesemia; D50.0 Iron deficiency anemia secondary to blood loss (chronic); F17.210 Nicotine dependence, cigarettes, uncomplicated; F10.11 Alcohol abuse, in remission; Z79.899 Other long term (current) drug therapy; Z79.82 Long term (current) use of aspirin; Z87.01 Personal history of pneumonia (recurrent); Z87.19 Personal history of other diseases of the digestive system
CPT/HCPCS: 36415; 71045; 80048; 81001; 82607; 82728; 82746; 83540; 83550; 83735; 84132; 84484; 85025; 87635; 93005; 94799; 97162; 97166; 99285; 99406; J7030; J7050; A4216; J2916; U0003

== ENCOUNTER 2019-10-29 19:33 | Emergency (ER) | payer MEDICARE, SELFPAY ==
[2019-10-29] VITALS (8 sets, daily range): BP systolic 113–144; BP diastolic 65–99; PULSE 85–98; RESP 16–22; TEMP 36.2–37; O2SAT 94–98; BMI 18.1
--- NOTE | 2019-10-29 19:50 | EKG12_ITS ---
Test Reason : ABD LABS Blood Pressure : / mmHG Vent. Rate : 095 BPM Atrial Rate : 095 BPM P-R Int : 138 ms QRS Dur : 066 ms QT Int : 352 ms P-R-T Axes : 069 059 076 degrees QTc Int : 442 ms Normal sinus rhythm Low Voltage QRS (Limb Leads) Confirmed by DANUTA WHITTEN, IMTIAZ ([id number]), rewrite editor BOBY ROMERO ([id number]) on 10/31/2019 9:36:15 AM Referred By: BB Confirmed By:IMTIAZ TIPTON MD
--- NOTE | 2019-10-29 19:52 | ED.VIS.GEN ---
History of Present Illness Chief Complaint: Abn Labs Informant: Patient, SNF Onset: Today Context: - - lab draw Quality: Hgb 6.8, down from 9 on 10/23/2019 Associated Symptoms: fatigues easily. no other sx. Narrative: Patient sent today for low hemoglobin of 6.8 to receive a blood transfusion. She is currently in rehab for short-term rehab after a couple hospitalizations, and resulting debility. Initially, she had melanotic stools and assumed upper GI bleeding with a hemoglobin of 6.8, in addition to pneumonia, COPD exacerbation, bilateral pleural effusions that needed drained. She was sent to [facility] for that since we did not have GI coverage. She states she had a normal bowel movement today without melena or blood. She has been eating and drinking well, no abdominal pain, nausea, vomiting. She denies any dyspnea even with exertion, this includes with physical therapy. No chest discomfort. No lightheadedness, syncope, or presyncopal symptoms at all. Just fatigues easily. She denies any bleeding from anywhere. She is on no anticoagulants, just a baby aspirin daily. - Past Medical History (1) COPD (chronic obstructive pulmonary disease) Status: Chronic (2) Alcohol abuse Status: Chronic (3) Anemia Status: Chronic Past Medical History - Allergies and Home Meds Allergies/Adverse Reactions: Allergies No Known Allergies Allergy (Verified 10/21/19 09:54) Primary Care Physician: Norman Lewis MD [STAFF PHYSICIAN] - 2 Days Surgical History: - - Tonsillectomy, left eye surgery. Lives: [facility] - For short-term rehab at this time Smoking Status: Former smoker Alcohol: None - Not since then rehab - Family History Maternal Family History: Reports: Diabetes Paternal Family History: Reports: Diabetes Review of Systems General: Reports: Malaise. Denies: Chills, Fever, Sweats Eyes: Denies: Visual changes - bilaterally, Diplopia ENT: Denies: Rhinorrhea, Sore throat Cardiovascular: Denies: Chest pain, Palpitations Respiratory: Denies: Dyspnea, Cough, Dyspnea on exertion Gastrointestinal: Denies: Abdominal pain, Nausea, Vomiting, Diarrhea, Constipation, Melena, Hematochezia Genitourinary: Denies: Dysuria, Hematuria, Frequency Musculoskeletal: Denies: Myalgias, Neck pain, Back pain, Swelling, Extremity Pain Skin: Denies: Rash, Wounds Neurological: Denies: Headache, Weakness, Numbness Physical Exam Vital Signs/Narrative: Vital Signs Temp Pulse Resp BP Pulse Ox 10/29/19 19:36 98.6 F 98 20 H 126/71 H 97 Inital Vital Signs reviewed: Yes General: Well nourished, Well developed, No Acute Distress - Well-appearing, conversive in full sentences Head: Normocephalic, Atraumatic Eyes: Perrl, EOMI, Pale conjunctiva ENT: Moist mucous membranes, No rhinorrhea Neck: Supple, Nontender Cardiovascular: Regular rate, Regular rhythm, No murmurs. Negative for: Tachycardia Respiratory: No distress, CTA bilaterally, Chest nontender Abdomen: Soft, Nontender, Nondistended, Normal bowel sounds Rectal: Guaiac positive, Nontender - With brown non-melanotic, nonbloody stool Back: Nontender, Normal Inspection Extremities: Nontender, No edema. Negative for: Calf Tenderness Skin: Normal color, No rash, No Trauma Neurological: Alert, Oriented x3, Cranial nerves II-XII grossly intact, Normal Strength, Normal Sensation Psychological: Normal affect, Normal Mood Diagnostic/Tx/Re-eval Laboratory Tests 10/29/19 10/29/19 10/29/19 Range/Units 19:55 19:55 19:55 WBC (4.4-11.0) K/mm3 RBC (4.2-5.4) M/mm3 Hgb (12.0-15.0) g/dL Hct (37-47) % MCV (81-99) fL MCH (27.0-32.0) pg MCHC (32-36) g/dL RDW Std Deviation (35.1-43.9) fl RDW Coeff of Lennox (11.6-14.6) % Plt Count (150-450) K/mm3 MPV (6.2-12.0) fl Immature Gran % (Auto) (0.0-0.9) % Neut % (Auto) (47-70) % Lymph % (Auto) (19-41) % Phelps % (Auto) (0-10) % Eos % (Auto) (0-5) % Baso % (Auto) (0-1) % Absolute Neuts (auto) (2.0-7.7) X10^3/uL Absolute Lymphs (auto) (0.83-4.51) X10^3/uL Nucleated RBC % (0-5) % Differential Comment Hypochromasia Anisocytosis Sodium 140 (136-145) mmol/L Potassium 3.6 (3.5-5.1) mmol/L Chloride 107 (98-107) mmol/L Carbon Dioxide 27.0 (21.0-32.0) mmol/L Anion Gap 6 (5-15) BUN 10 (7-18) mg/dL Creatinine 0.27 L (0.55-1.02) mg/dL Estim Creat Clear Calc 172.82 ml/min Est GFR (MDRD) Af Amer 323 (>60) mL/min Est GFR (MDRD) Non-Af 267 (>60) mL/min BUN/Creatinine Ratio 36.9 H (10-20) RATIO Glucose 185 H (74-106) mg/dL Calcium 7.4 L (8.5-10.1) mg/dL Blood Type O POSITIVE Antibody Screen NEGATIVE Crossmatch See Detail See Detail 10/29/19 Range/Units 19:55 WBC 12.7 H (4.4-11.0) K/mm3 RBC 2.20 L (4.2-5.4) M/mm3 Hgb 6.2 L (12.0-15.0) g/dL Hct 20.0 L (37-47) % MCV 90.9 (81-99) fL MCH 28.2 (27.0-32.0) pg MCHC 31.0 L (32-36) g/dL RDW Std Deviation 83.2 H (35.1-43.9) fl RDW Coeff of Lennox 25.5 H (11.6-14.6) % Plt Count 371 (150-450) K/mm3 MPV 9.4 (6.2-12.0) fl Immature Gran % (Auto) 0.500 (0.0-0.9) % Neut % (Auto) 81.0 H (47-70) % Lymph % (Auto) 12.2 L (19-41) % [place]helps % (Auto) 5.6 (0-10) % Eos % (Auto) 0.5 (0-5) % Baso % (Auto) 0.2 (0-1) % Absolute Neuts (auto) 10.3 H (2.0-7.7) X10^3/uL Absolute Lymphs (auto) 1.55 (0.83-4.51) X10^3/uL Nucleated RBC % 0 (0-5) % Differential Comment SCANNED Hypochromasia 2+ Anisocytosis 1+ Sodium (136-145) mmol/L Potassium (3.5-5.1) mmol/L Chloride (98-107) mmol/L Carbon Dioxide (21.0-32.0) mmol/L Anion Gap (5-15) BUN (7-18) mg/dL Creatinine (0.55-1.02) mg/dL Estim Creat Clear Calc ml/min Est GFR (MDRD) Af Amer (>60) mL/min Est GFR (MDRD) Non-Af (>60) mL/min BUN/Creatinine Ratio (10-20) RATIO Glucose (74-106) mg/dL Calcium (8.5-10.1) mg/dL Blood Type Antibody Screen Crossmatch - Rhythm Strip Rhythm Strip: Sinus Rhythm Rate: 95 Ectopy: None - EKG Initial EKG Interpretation: Sinus Rhythm, No Acute Injury Pattern - normal EKG - Medical Decision Making Patient's hemoglobin is lower than measured earlier, 6.2. She consented to blood after we discussed risk and benefits. We started a unit of blood here in the ER. Her Hemoccult test returned positive. After I discussed options here, including possibly transferring her to [place] for another scope, she adamantly refuses. She states this is been off and on chronically, and no one is ever found the source of her bleeding. She had a scope at [facility] this past month, she does not know what it showed and I do not have those records. When asked her preference, she wants to get a blood transfusion and go back to rehab and follow-up with somebody as an outpatient. Discussed with Dr. Lewis, who is the hospitalist miguel and also the physician of record for this patient while she is at [facility] in short-term rehab. He agrees with giving the patient 2 unit packed red blood cell transfusion and discharging her back. We will do this in the emergency department and discharge her when they are complete. ED Disposition - Plan for ED Patient: Disposition: Home or Assisted Living Diagnosis: Occult GI bleeding, Acute blood loss anemia Instructions: ED Hematochezia Stable Referrals: Norman Lewis MD [STAFF PHYSICIAN] - 2 Days
[2019-10-29 20:05] LABS: Absolute Lymphocyte Count 1.55 X10^3/uL (0.83-4.51); Absolute Neutrophil Count 10.3 X10^3/uL (2.0-7.7); Basophil# 0.02 X10^3/uL; Basophil% 0.2 % (0-1); Eosinophil# 0.06 X10^3/uL; Eosinophils% 0.5 % (0-5); Hemoglobin 6.2 g/dL (12.0-15.0); Lymphocyte # 1.55 X10^3/ul (4.0); Lymphocyte % 12.2 % (19-41); Mean Corpuscular Hgb 28.2 pg (27.0-32.0); Mean Corpuscular Volume 90.9 fL (81-99); Mean Platelet Vol. 9.4 fl (6.2-12.0); Monocyte# 0.71 X10^3/uL; Monocyte% 5.6 % (0-10); NRBC Flagged by Analyzer 0 % (0-5); Neutrophil # 10.29 X10^3/uL (2.7-7.7); POSITIVE MORPHOLOGY YES; Platelet Count 371 K/mm3 (150-450); RBC Distribution Width CV 25.5 % (11.6-14.6); RBC Distribution Width SD 83.2 fl (35.1-43.9); White Blood Count 12.7 K/mm3 (4.4-11.0)
[2019-10-29 20:13] LABS: Differential Indicated SCAN CRITERIA MET
[2019-10-29 20:37] LABS: Anisocytosis 1+; Differential Comment SCANNED; Hypochromasia 2+
[2019-10-29 20:52] LABS: Anion Gap 6 (5-15); BUN 10 mg/dL (7-18); BUN/Creat Ratio 36.9 RATIO (10-20); Calcium,Total 7.4 mg/dL (8.5-10.1); Chloride 107 mmol/L (98-107); Creatinine, Serum 0.27 mg/dL (0.55-1.02); EST Glomerular Filtration Rate 267 mL/min (>60); Est Glom Filt Rate - Afr Amer 323 mL/min (>60); Estimated Creatinine Clearance 172.82 ml/min; Glucose 185 mg/dL (74-106); Potassium 3.6 mmol/L (3.5-5.1); Sodium Level 140 mmol/L (136-145)
[2019-10-30] VITALS (11 sets, daily range): BP systolic 124–154; BP diastolic 61–95; PULSE 80–91; RESP 16–20; TEMP 36.2–36.9; O2SAT 96–98
[2019-10-30] MEDS: Acetaminophen 500 MG Tablet 1000 MG PO (02:57)
== END 2019-10-30 03:57 | disposition skilled nursing facility (03) ==
PROVIDERS: Emergency Provider Emergency Medicine; PCP Nurse Practitioner Adult Health
DX: K92.2 Gastrointestinal hemorrhage, unspecified (principal); D62 Acute posthemorrhagic anemia; J44.9 Chronic obstructive pulmonary disease, unspecified; F10.10 Alcohol abuse, uncomplicated; Z79.82 Long term (current) use of aspirin; Z79.52 Long term (current) use of systemic steroids; Z79.899 Other long term (current) drug therapy; Z87.891 Personal history of nicotine dependence
CPT/HCPCS: 36430; 80048; 82274; 85025; 86850; 86900; 86901; 86920; 86922; 93005; 99284; P9016; A4216

== ENCOUNTER 2019-11-01 19:39 | Inpatient (IN) | payer MEDICARE, SELFPAY ==
[2019-10-29 19:36] VITALS: BMI 18.1
[2019-11-01] VITALS (10 sets, daily range): BP systolic 100–109; BP diastolic 54–70; PULSE 80–166; RESP 16–24; TEMP 35.7–36.9; O2SAT 2–98; BMI 17.6; BMI 16.9
--- NOTE | 2019-11-01 19:41 | EKG12_ITS ---
Test Reason : DYSRHYTHMIA Blood Pressure : / mmHG Vent. Rate : 091 BPM Atrial Rate : 091 BPM P-R Int : 126 ms QRS Dur : 066 ms QT Int : 362 ms P-R-T Axes : 062 074 081 degrees QTc Int : 445 ms Normal sinus rhythm Normal ECG Confirmed by RONNIE WHITTEN, TYLER ([id number]), editor sound NENA OCHOA ([id number]) on 11/05/2019 12:56:40 PM Referred By: [facility] Confirmed By:TYLER TRUJILLO MD
--- NOTE | 2019-11-01 19:51 | ED.DCSUM_ITS ---
History of Present Illness Chief Complaint: General Illness Detail of Chief Complaint: Respiratory difficulty, cough, low hemoglobin Informant: Patient, [employer] Up [employer], [facility] Onset: Days - Patient reports cough started 3 days ago. She states she had x- ray today and was told she does not have pneumonia. Paperwork that accompanied her refill she has a right middle lobe infiltrate and possibly right lower lobe. Context: Sudden Onset Timing: Continuous Quality: Dyspnea and low hemoglobin Location: Respiratory and GI Current Severity: Moderate Maximum Severity: Severe Worsened by: Activity and GI bleed of unknown source Relieved by: Nothing Associated Symptoms: Cough that is occasionally productive Narrative: She is an elderly woman who presents from alf. She was seen on 10 28 for low hemoglobin. She refused admission at that time. Patient now presents because of shortness of breath, cough which is scantly productive, shortness of breath and generalized weakness. She does reside in a alf. There are residents at the alf that are COVID positive. She denies headache, visual, ocular auditory symptoms. She denies chest discomfort. She denies nausea, vomiting diarrhea. She states she has black stool. She is not sure if she is on iron or not. She states she has not taken Pepto-Bismol or Kaopectate. She denies urologic symptoms. She denies focal neurologic symptoms. Prior similar symptoms: No Recent Illness/Hospitalization: Yes - Past Medical History (1) Alcohol abuse Status: Chronic (2) Anemia Status: Acute (3) COPD (chronic obstructive pulmonary disease) Status: Chronic (4) Iron deficiency anemia due to chronic blood loss Status: Acute (5) Severe protein-calorie malnutrition Status: Chronic (6) Tobacco use Status: Chronic Past Medical History - Allergies and Home Meds Allergies/Adverse Reactions: Allergies No Known Allergies Allergy (Verified 10/21/19 09:54) Prior records reviewed: Yes Surgical History: - - Tonsillectomy, left eye surgery. Lives: Assisted Smoking Status: Former smoker Alcohol: Sober Drugs: None - Family History Maternal Family History: Reports: Diabetes Paternal Family History: Reports: Diabetes Review of Systems General: Reports: Chills, Malaise. Denies: Fever, Sweats ENT: Denies: Rhinorrhea, Sore throat Cardiovascular: Reports: Palpitations. Denies: Chest pain, Heart racing Respiratory: Reports: Dyspnea, Cough, Sputum, Dyspnea on exertion. Denies: Orthopnea, Paroxysmal nocturnal dyspnea Gastrointestinal: Reports: Melena - Colored stool or black. She states the stool is not sticky nor does it have an odor.. Denies: Abdominal pain, Nausea, Vomiting, Diarrhea, Constipation, Hematochezia Genitourinary: Denies: Dysuria, Hematuria, Frequency Musculoskeletal: Denies: Myalgias, Arthralgias, Neck pain, Back pain, Swelling, Extremity Pain, -, - Skin: Denies: Rash, Wounds Neurological: Reports: Weakness. Denies: Headache, Parasthesia, Numbness, -, - Hematologic: Denies: Easy bruising, Easy bleeding Physical Exam Vital Signs/Narrative: Vital Signs Temp Pulse Resp BP Pulse Ox 11/01/19 19:40 98.4 F 101 H 24 H 107/70 98 Inital Vital Signs reviewed: Yes General: Well developed, Cachectic, Acute Distress Head: Normocephalic, Atraumatic Eyes: Perrl, EOMI, Pale conjunctiva. Negative for: Scleral icterus ENT: Moist mucous membranes, No rhinorrhea, TM's clear Neck: Supple, Nontender, No lymphadenopathy, No JVD Cardiovascular: Regular rhythm, No murmurs, Normal S1, Normal S2, Tachycardia Respiratory: Chest nontender, Rales, Wheezing, Diminished, Decreased Air Movement, - - Egophony right side posteriorly and anteriorly.. Negative for: No distress, CTA bilaterally Abdomen: Soft, Nontender, Nondistended, Normal bowel sounds, No masses. Negative for: Mass, Pulsatile mass Back: Nontender, Normal Inspection Extremities: Nontender, No edema Skin: Pallor. Negative for: No rash, Cyanosis, Diaphoresis, Jaundice Neurological: Alert, Oriented x3, Cranial nerves II-XII grossly intact, Normal Strength, Normal Sensation Psychological: Depressed Diagnostic/Tx/Re-eval 11/01/19 21:12 Chest 1 View (Portable) [RAD] Stat Laboratory Results 11/01/19 11/01/19 11/01/19 19:50 19:50 19:50 WBC 27.4 H RBC 2.43 L Hgb 7.2 L Hct 23.4 L MCV 96.3 D MCH 29.6 MCHC 30.8 L RDW Std Deviation 78.5 H RDW Coeff of Lennox 22.8 H Plt Count 346 MPV 9.8 Immature Gran % (Auto) 0.600 Neut % (Auto) 93.0 H Lymph % (Auto) 3.0 L [place] % (Auto) 3.2 Eos % (Auto) 0.0 Baso % (Auto) 0.2 Absolute Neuts (auto) 25.5 H Absolute Lymphs (auto) 0.83 Nucleated RBC % 0 Polychromasia 1+ Anisocytosis 2+ Macrocytosis 1+ PT INR APTT Sodium 136 Potassium 3.7 Chloride 101 Carbon Dioxide 29.0 Anion Gap 6 BUN 9 Creatinine 0.36 L Estim Creat Clear Calc 125.68 Est GFR (MDRD) Af Amer 236 Est GFR (MDRD) Non-Af 195 BUN/Creatinine Ratio 25.4 H Glucose 132 H Lactic Acid Calcium 8.4 L Total Bilirubin 0.30 AST 23 ALT 22 Alkaline Phosphatase 133 H Total Protein 5.9 L Albumin 2.1 L Globulin 3.8 Albumin/Globulin Ratio 0.6 L Blood Type Antibody Screen Crossmatch See Detail 11/01/19 11/01/19 11/01/19 19:50 19:50 19:50 WBC RBC Hgb Hct MCV MCH MCHC RDW Std Deviation RDW Coeff of Lennox Plt Count MPV Immature Gran % (Auto) Neut % (Auto) Lymph % (Auto) [place] % (Auto) Eos % (Auto) Baso % (Auto) Absolute Neuts (auto) Absolute Lymphs (auto) Nucleated RBC % Polychromasia Anisocytosis Macrocytosis PT 12.1 INR 0.9 APTT 35.7 Sodium Potassium Chloride Carbon Dioxide Anion Gap BUN Creatinine Estim Creat Clear Calc Est GFR (MDRD) Af Amer Est GFR (MDRD) Non-Af BUN/Creatinine Ratio Glucose Lactic Acid 1.3 Calcium Total Bilirubin AST ALT Alkaline Phosphatase Total Protein Albumin Globulin Albumin/Globulin Ratio Blood Type O POSITIVE Antibody Screen NEGATIVE Crossmatch Review chest x-ray was compared to October 20. Today's film is rotated. There is significant chronic changes noted. There may be a small effusion on the right which was noted on prior. There is scarring noted bilaterally. The fact that the patient is hypoxic with cough and clinically has pneumonia we will treat for pneumonia. Patient's white count is elevated 27,000. She is dyspneic with a hemoglobin 7.2. She will receive 1 unit of blood. - EKG Initial EKG Interpretation: Sinus Rhythm - Normal sinus rhythm with a ventricular rate of 91. NM interval is 126 ms. QRS duration 66 ms. QT duration 362 ms. [place] is normal. The EKG is normal. - Medical Decision Making Patient was treated for healthcare acquired pneumonia. Initially I was informed that she had a low hemoglobin per prior records it was no mention of any respiratory symptoms. After completing interview sepsis order set was added. Patient was informed she will require admission since her pulse ox dropped to 88% on room air. She arrived on oxygen. The oxygen was removed to see if she would desaturate. ED Disposition - Plan for ED Patient: Disposition: [facility] Diagnosis: Acute respiratory failure with hypoxia, Pneumonia, Asthma exacerbation in COPD, Sepsis, Iron deficiency anemia due to chronic blood loss
[2019-11-01 20:13] LABS: Absolute Lymphocyte Count 0.83 X10^3/uL (0.83-4.51); Absolute Neutrophil Count 25.5 X10^3/uL (2.0-7.7); Basophil# 0.05 X10^3/uL; Basophil% 0.2 % (0-1); Hematocrit 23.4 % (37-47); Hemoglobin 7.2 g/dL (12.0-15.0); Lymphocyte # 0.83 X10^3/ul (4.0); Mean Corp Hgb Conc 30.8 g/dL (32-36); Mean Corpuscular Hgb 29.6 pg (27.0-32.0); Mean Corpuscular Volume 96.3 fL (81-99); Mean Platelet Vol. 9.8 fl (6.2-12.0); Monocyte# 0.88 X10^3/uL; Monocyte% 3.2 % (0-10); NRBC Flagged by Analyzer 0 % (0-5); POSITIVE DIFFERENTIAL YES; POSITIVE MORPHOLOGY YES; Platelet Count 346 K/mm3 (150-450); RBC Distribution Width CV 22.8 % (11.6-14.6); RBC Distribution Width SD 78.5 fl (35.1-43.9); Red Blood Count 2.43 M/mm3 (4.2-5.4); White Blood Count 27.4 K/mm3 (4.4-11.0)
[2019-11-01] MEDS: MethylPREDNISolone 125 MG/2 ML Vial 60 MG IV (20:15)
[2019-11-01] MEDS: Albuterol 2.5 MG/3 ML VIAL.NEB. INHALATION (20:21)
[2019-11-01] MEDS: Ipratropium/Albuterol Sulfate 3 ML AMPUL.NEB INHALATION (20:21)
[2019-11-01 20:26] LABS: Differential Indicated SCAN CRITERIA MET
[2019-11-01 20:42] LABS: International Normalized Ratio 0.9; Prothrombin Time (Protime)PT. 12.1 SECONDS (11.7-14.9)
[2019-11-01 20:43] LABS: Partial Thromboplast Time 35.7 Seconds (24.1-36.2)
[2019-11-01 20:47] LABS: ALB/GLOB Ratio 0.6 RATIO (0.9-2.4); AST(SGOT) 23 U/L (15-37); Alanine Aminotransfer ALT/SGPT 22 U/L (13-56); Albumin, Serum 2.1 g/dL (3.2-5.0); Alkaline Phosphatase 133 U/L (45-117); Anion Gap 6 (5-15); BUN 9 mg/dL (7-18); BUN/Creat Ratio 25.4 RATIO (10-20); Calcium,Total 8.4 mg/dL (8.5-10.1); Chloride 101 mmol/L (98-107); Creatinine, Serum 0.36 mg/dL (0.55-1.02); EST Glomerular Filtration Rate 195 mL/min (>60); Est Glom Filt Rate - Afr Amer 236 mL/min (>60); Estimated Creatinine Clearance 125.68 ml/min; Globulin 3.8 g/dL (2.2-4.2); Glucose 132 mg/dL (74-106); Potassium 3.7 mmol/L (3.5-5.1); Protein, Total 5.9 g/dL (6.4-8.2); Sodium Level 136 mmol/L (136-145)
[2019-11-01 20:49] LABS: Anisocytosis 2+; Macrocytosis 1+; Polychromasia 1+
[2019-11-01 20:50] LABS: Lactic Acid 1.3 mmol/L (0.4-1.9)
--- NOTE | 2019-11-01 20:56 | CPS ---
x1 Albuterol given to pt. as well in ED
--- NOTE | 2019-11-01 21:12 | RAD_ITS ---
STUDY: X-RAY CHEST REASON FOR EXAM: Female, 64 years old. ATAXIA, HYPOXIA, BILATERAL WHEEZING, COUGH, LEFT SIDED CHEST PAIN TECHNIQUE: Single AP portable view of the chest. COMPARISON: Prior study of 10/21/2019 FINDINGS: household assistant leads are seen. There is a focus of right middle lobe scarring, similar to prior plain film study of 10/21/2019 and CTA chest of 10/02/2019 there is pleural reaction of the right lung base. Normal size heart. Normal mediastinum and laurent. Normal visualized pulmonary arteries. There are calcified plaques of the aortic arch. Normal visualized thoracic spine. Normal visualized ribs, clavicles, and shoulders. There is no demonstrated abnormality of the visualized soft tissue structures of the upper abdomen. RAD/Chest 1 View (Portable) IMPRESSION: Right middle lobe scarring, stable in the interval. Right basilar pleural reaction, also similar to the previous study. Calcified plaques of the aortic arch. No acute cardiopulmonary disease process is seen. Electronically Signed: Luigi Cortes MD at 21:34 EDT , Service support ,
--- NOTE | 2019-11-01 21:33 | HP.PCM_ITS ---
Problem List (1) Sepsis Status: Acute Qualifiers: Sepsis type: sepsis due to unspecified organism Sepsis acute organ dysfunction status: unspecified Qualified Code(s): A41.9 - Sepsis, unspecified organism (2) Pneumonia Status: Acute Qualifiers: Pneumonia type: due to unspecified organism Laterality: right Lung location: unspecified part of lung Qualified Code(s): J18.9 - Pneumonia, unspecified organism (3) COPD exacerbation Status: Acute (4) Iron deficiency anemia due to chronic blood loss Status: Acute (5) Anxiety and depression Status: Chronic (6) Anemia Status: Acute Qualifiers: Anemia type: unspecified type Qualified Code(s): D64.9 - Anemia, unspecified (7) Alcohol abuse Status: Chronic (8) COPD (chronic obstructive pulmonary disease) Status: Chronic Qualifiers: COPD type: unspecified COPD Qualified Code(s): J44.9 - Chronic obstructive pulmonary disease, unspecified (9) Severe protein-calorie malnutrition Status: Chronic (10) Tobacco use Status: Chronic History of Present Illness Date of Admission: 11/01/19 Chief Complaint: Dyspnea, cough, recent PNA, Decreased Hgb despite recent PRBC administration. The patient is a 64 y/o F w/ PMHx: Anxiety and Depression, Fe Deficiency anemia, GERD w/ Hx PUD, GI bleed, Chronic COPD, Alcohol abuse, Tobacco use, Severe protein calorie malnutrition recently discharged on 10/23/19 following recent [facility] treatment for acute respiratory failure secondary to PNA and COPD exacerbation as well as acute on chronic anemia complicated by her EtOH abuse with concurrent thrombocytosis with transition to SNF who now re-presents to the [facility] ED on 11/01/19 with history of recurrent onset of cough over the last 3 days with associated dyspnea, worse with any exertion, occasionally productive but not market with no specific fevers or chills but not improving with worsening generalized weakness and fatigue reporting additionally black stools prompting [facility] from [facility] for evaluation. Patient denies any recent headache, smell or taste alterations, nausea, vomiting, diarrhea. Patient is on chronic iron therapy. She per report had recent transfusion with 2 u PRBC on Tuesday prior. Work-up in the ED included T 98.4, heart rate 101, respiratory rate 24, 88% on room air with improvement to 95% on 2 L nasal cannula, CBC with WC 27.4, hemoglobin 7.2, platelets 346 with increase left shift from previously, unremarkable coags, CMP with BUN/creatinine 9/0.36, glucose 132, lactic acid 1.3, repeat COVID testing pending, most recent cover testing on 10/22/2019 negative, blood culture x2 pending per ED, chest x-ray with more prominent R sided findings, EKG with sinus rhythm with no acute evidence of ischemia. In the ED patient ministered albuterol, DuoNeb, Solu-Medrol and Zosyn therapy. Past Medical History Past Medical History (Chronic Problems): Chronic Problems COPD (chronic obstructive pulmonary disease) (Chronic) Asthma exacerbation in COPD (Chronic) Anxiety and depression (Chronic) Alcohol abuse (Chronic) Severe protein-calorie malnutrition (Chronic) Tobacco use (Chronic) Allergies No Known Allergies Allergy (Verified 10/21/19 09:54) Home Medications: Ambulatory Orders Medication Instructions Recorded Albuterol Sulfate [Albuterol 2 puff INHALATION Q4H PRN PRN 10/02/19 Sulfate HFA] Aspirin [Aspirin, Baby] 81 mg PO DAILY@0800 10/02/19 Folic Acid 1 mg PO DAILY 10/21/19 ALPRAZolam [Xanax] 0.5 mg PO QHS PRN PRN #14 tab 10/23/19 Citalopram [Celexa] 10 mg PO DAILY 10/29/19 Omeprazole [Prilosec] 20 mg PO DAILY 10/29/19 Thiamine HCl [B-1] 100 mg PO DAILY 10/29/19 Acetaminophen [Tylenol Extra 1,000 mg PO Q8H PRN PRN 11/01/19 Strength] Albuterol Aerosols [Ventolin 2.5 mg INHALATION Q4HWA.RT 11/01/19 Aerosols] Ferrous Sulfate [Ferosul] 325 mg PO DAILY 11/01/19 Lorazepam [Ativan] 0.5 mg PO BID PRN PRN 11/01/19 Potassium Chloride [K-Dur] 10 meq PO DAILY 11/01/19 Prednisone 40 mg PO DAILY 11/01/19 Tramadol HCl [Ultram] 50 mg PO Q8H PRN PRN 11/01/19 Surgical History: - - Tonsillectomy, left eye surgery. Psychiatric History: Anxiety, Depression [employer]LECT[employer] WHEEL[employer] RE[employer]ER History: No pertinent ELECT[employer] WHEELCHA[employer] REPA[employer]ER history Lives: Shelter Smoking Status: Former smoker - Patient quit cigarette tobacco usage approximately 2 months prior to current presentation with prior to this 1 pack/day cigarette tobacco usage since he was 15 years old. Alcohol: Sober - Patient sober x3 months with prior to this approximately 6 beers daily, higher in her past. Drugs: None - *Family History Maternal History Items: Diabetes Paternal History Items: Diabetes Review of Systems Constitutional: Reports: Anorexia, Malaise, Weakness, Fatigue. Denies: Chills, Fever, Weight Change HEENT: Denies: Head Aches, Sinus Congestion, Sinus Drainage Cardiovascular: Denies: Chest Pain, Palpitations Respiratory: Reports: Cough, Pleuritic Pain, Shortness of Breath, Shortness of breath at rest, Shortness of breath upon exertion, Sputum production, Wheezing Gastrointestinal: Denies: Abdominal Pain, Constipation, Diarrhea, Nausea, Vomiting Genitourinary: Denies: Dysuria Musculoskeletal: Reports: Back Pain, Joint Pain. Denies: Joint Tenderness Skin: Denies: Rash, Wounds Neurological: Denies: Numbness, Tingling, Focal weakness Psychiatric: Reports: Anxiety, Depression. Denies: Homicidal Ideations, Suicidal Ideations Hematologic/ Lymphatic: Reports: Anemia. Denies: Easy Bruising, Easy Bleeding VTE Information - Inpt Only VTE Present on Admission: No VTE Mechan Device Prophylaxis: SCD's VTE Pharm Prophylaxis ordered?: No Reason prophylaxis not ordered:: Medical Contraindication - Acute on chronic anemia Patient Problems: Active and Suspected Problems Acute respiratory failure with hypoxia (Acute) Pneumonia (Acute) Sepsis (Acute) COPD exacerbation (Acute) Iron deficiency anemia due to chronic blood loss (Acute) Subjective: Patient seated upright in the ED bed, fatigued and ill-appearing, moist coughing ongoing, initially 88% on 2 L, improved to 92% with increased to 4 L during examination. Objective: Physical Examination: General: awake, alert, oriented x 3 and cooperative, seated upright in the ED bed, fatigued and ill-appearing. Skin: normal color, turgor, no icterus, cyanosis except occasional very staged ecchymoses. HEENT: AT/NC, EOMI, PERRLA, dry MM, no carotid bruits or JVD noted. Lungs: Diminished breath sounds throughout, greater bilateral bases, greater right mid to base, coarse, rhonchorous, expiratory wheezing present, moist coughing during evaluation, no obvious respiratory distress currently. Heart: Mildly tachycardic with regular rhythm; no gallop, rub audible. Abdomen: soft, NTTP, ND, normal BS, no HSM. Extremities: no cyanosis, clubbing, or edema. Neurological: patient awake, alert, oriented x 3; cognitive function intact; pupils equally reactive to light and accomodation; cranial nerves II-XII grossly normal, moving all 4 extremities, no focal deficits, strength severely global decrease secondary to acute presentation. Psychiatric: affect appears fatigued, ill-appearing, no acute evidence of depressive or anxiety feelings. - Physical Exam Vitals/I&O's: Vital Signs Temp Pulse Resp BP Pulse Ox 98.4 F 98 24 H 107/70 95 11/01/19 19:59 11/01/19 20:21 11/01/19 20:21 11/01/19 19:59 11/01/19 20:21 Oxygen Flow Rate (L/min) 2 Oxygen Delivery Method Nasal Cannula Weight: 112 lb 10.499 oz Body Mass Index (BMI) 17.6 Laboratory Results 11/01/19 19:50: WBC 27.4 H, RBC 2.43 L, Hgb 7.2 L, Hct 23.4 L, MCV 96.3 D, MCH 29.6, MCHC 30.8 L, RDW Std Deviation 78.5 H, RDW Coeff of Lennox 22.8 H, Plt Count 346, MPV 9.8, Immature Gran % (Auto) 0.600, Neut % (Auto) 93.0 H, Lymph % (Auto) 3.0 L, Douglas % (Auto) 3.2, Eos % (Auto) 0.0, Baso % (Auto) 0.2, Absolute Neuts (auto) 25.5 H, Absolute Lymphs (auto) 0.83, Nucleated RBC % 0, Polychromasia 1+, Anisocytosis 2+, Macrocytosis 1+ 11/01/19 19:50: Sodium 136, Potassium 3.7, Chloride 101, Carbon Dioxide 29.0, Anion Gap 6, BUN 9, Creatinine 0.36 L, Estim Creat Clear Calc 125.68, Est GFR (MDRD) Af Amer 236, Est GFR (MDRD) Non-Af 195, BUN/Creatinine Ratio 25.4 H, Glucose 132 H, Calcium 8.4 L, Total Bilirubin 0.30, AST 23, ALT 22, Alkaline Phosphatase 133 H, Total Protein 5.9 L, Albumin 2.1 L, Globulin 3.8, Albumin/Globulin Ratio 0.6 L 11/01/19 19:50: Crossmatch See Detail 11/01/19 19:50: PT 12.1, INR 0.9, APTT 35.7 11/01/19 19:50: Lactic Acid 1.3 11/01/19 19:50: Blood Type O POSITIVE, Antibody Screen NEGATIVE 11/01/19 20:13: COVID-19 (TEJAS) Pending Assessment/Plan All Active Problems Acute respiratory failure with hypoxia (Acute) Pneumonia (Acute) Sepsis (Acute) COPD exacerbation (Acute) Iron deficiency anemia due to chronic blood loss (Acute) Generalized weakness (Acute) Leukocytosis (Acute) Thrombocytosis (Acute) Anemia (Acute) The patient is a 64 y/o F w/ PMHx: Anxiety and Depression, Fe Deficiency anemia, GERD w/ Hx PUD, GI bleed, Chronic COPD, Alcohol abuse, Tobacco use, Severe protein calorie malnutrition recently discharged on 10/23/19 following recent [facility] treatment for acute respiratory failure secondary to PNA and COPD exacerbation as well as acute on chronic anemia complicated by her EtOH abuse with concurrent thrombocytosis with transition to SNF who now re-presents to the [facility] ED on 11/01/19 with history of recurrent onset of cough over the last 3 days with associated dyspnea, worse with any exertion, occasionally productive but not market with no specific fevers or chills. 1. Acute Sepsis secondary to Pneumonia, Possible Aspiration versus HCAP with associated Hypoxia and Acute on Chronic COPD Exacerbation, complicated by #2: Will admit to PCU, maintain on oxygen with wean as tolerated to room air, continue ATC duonebs, PRN albuterol, maintain on IV solumedrol, maintain on IV Zosyn and Vancomycin with MRSA screen with de-escalation if able, HOB, IS parameters w/ pending sputum cultures, respiratory viral panel and urine antigens. Recent COVID testing negative, awaiting repeat from ED. Bld cx x 2 obtained in the ED. Speech consulted. PT, OT, CM for discharge planning. 2. Acute on chronic anemia with recent history of possibly peptic ulcer disease, GI bleed at [facility]: Patient reports dark stools however she is on chronic iron, no specific melena, guaiac pending, 10/23/2019 hemoglobin 9.0, currently 11/01/2019 hemoglobin 7.2, 2 unit ordered per ED and pending, trend H&H's, maintain on IV Protonix, n.p.o. status pending further trending evaluation. Patient has had serial endoscopies including capsule without any findings on these tests. May consider consultation with general surgery pending guaiac and hemoglobin trending. May necessitate IV marla Lucero prior admission oncology was involved and may consider reconsultation. 3. Hyperglycemia: Admission glucose 132, hemoglobin A1c pending. 4. Hx of EtOH Abuse: Reportedly sober x3 months now, prior to this noted drinking approximately 6 beers daily but more in the past, living in [facility]. 5. Anxiety and depression: We will continue patient home Xanax, Celexa regimen with hold parameters for his sedation as needed. 6. Former tobacco use: Encourage continued tobacco cessation, quit 2 months prior to current presentation with prior to this 1 pack/day since she been 15 years old. 7. Severe protein calorie malnutrition: Evidenced per BMI, obvious fat and muscle loss, nutrition consulted. 8. DVT prophylaxis: SCDs, defer chemoprophylaxis given presentation as noted. 9. CODE status: Patient has having paperwork with her and is interested in assistance with case management and social work which was encouraged. Discussed possible individual she would like to label as her healthcare power of ip attorney but she still undecided. Discussed CODE status at length specially given her significant chronic comorbidities including difference between FULL code, DNR- CCA and DNR-CC status. Following discussions about the differences in these status, requested full CODE STATUS despite discussions that suspect interventions may be unsuccessful. Advanced Care Planning Face to Face Time: 16 minutes. Inpatient E&M: 93989 Init Hosp L3 Procedures: [id number] Advncd Care Plan 30 Min
[2019-11-01 21:43] LABS: Probe Check PASS; Specimen Processing Control PASS
--- NOTE | 2019-11-01 21:48 | ED.RN ---
BRIDGER CALLED AND UPDATED ON PATIENT BEING ADMITTED
[2019-11-01] MEDS: Morphine 2 MG/ML Syringe IV (23:36)
[2019-11-02] VITALS (23 sets, daily range): BP systolic 106–131; BP diastolic 61–77; PULSE 75–101; RESP 16–22; TEMP 36.3–36.8; O2SAT 90–100; BMI 16.9
[2019-11-02 00:03] LABS: Magnesium 1.5 mg/dL (1.6-2.6)
[2019-11-02] MEDS: 0.9% Normal Saline 1,000 ML 100 ML IV ×3 (00:06→20:50)
[2019-11-02] MEDS: 0.9% Saline Lock 10 ML Syringe IV ×5 (00:19→22:07)
[2019-11-02] MEDS: LORazepam 0.5 MG Tablet PO ×2 (02:29→16:03)
[2019-11-02 02:40] LABS: M R Staph aureus DNA By PCR Negative (Negative); Probe Check PASS; Specimen Processing Control PASS
[2019-11-02] MEDS: Ipratropium/Albuterol Sulfate 3 ML AMPUL.NEB INHALATION ×4 (06:42→19:03)
[2019-11-02 08:07] LABS: Absolute Lymphocyte Count 0.42 X10^3/uL (0.83-4.51); Absolute Neutrophil Count 11.2 X10^3/uL (2.0-7.7); Basophil# 0.01 X10^3/uL; Basophil% 0.1 % (0-1); Hematocrit 33.1 % (37-47); Hemoglobin 10.8 g/dL (12.0-15.0); Lymphocyte # 0.42 X10^3/ul (4.0); Lymphocyte % 3.6 % (19-41); Mean Corp Hgb Conc 32.6 g/dL (32-36); Mean Corpuscular Hgb 30.7 pg (27.0-32.0); Mean Platelet Vol. 9.4 fl (6.2-12.0); Monocyte# 0.03 X10^3/uL; Monocyte% 0.3 % (0-10); NRBC Flagged by Analyzer 0 % (0-5); Neutrophil # 11.24 X10^3/uL (2.7-7.7); Neutrophil % 95.4 % (47-70); POSITIVE DIFFERENTIAL YES; POSITIVE MORPHOLOGY YES; Platelet Count 282 K/mm3 (150-450); RBC Distribution Width CV 18.8 % (11.6-14.6); RBC Distribution Width SD 60.8 fl (35.1-43.9); Red Blood Count 3.52 M/mm3 (4.2-5.4); White Blood Count 11.8 K/mm3 (4.4-11.0)
[2019-11-02 08:09] LABS: Differential Indicated SCAN CRITERIA MET
[2019-11-02 08:33] LABS: Differential Comment SCANNED
[2019-11-02 08:40] LABS: ALB/GLOB Ratio 0.5 RATIO (0.9-2.4); AST(SGOT) 15 U/L (15-37); Alanine Aminotransfer ALT/SGPT 16 U/L (13-56); Alkaline Phosphatase 120 U/L (45-117); Anion Gap 9 (5-15); BUN 7 mg/dL (7-18); BUN/Creat Ratio 20.2 RATIO (10-20); Calcium,Total 8.3 mg/dL (8.5-10.1); Chloride 103 mmol/L (98-107); Creatinine, Serum 0.35 mg/dL (0.55-1.02); EST Glomerular Filtration Rate 201 mL/min (>60); Est Glom Filt Rate - Afr Amer 243 mL/min (>60); Estimated Creatinine Clearance 123.96 ml/min; Globulin 3.7 g/dL (2.2-4.2); Glucose 217 mg/dL (74-106); Potassium 3.9 mmol/L (3.5-5.1); Protein, Total 5.7 g/dL (6.4-8.2); Sodium Level 137 mmol/L (136-145)
[2019-11-02 08:44] LABS: Hemoglobin A1c 5.1 % (3.8-5.6)
[2019-11-02] MEDS: Citalopram 10 MG Tablet PO (09:14)
[2019-11-02] MEDS: Thiamine Hydrochloride 100 MG Tablet PO (09:14)
[2019-11-02] MEDS: Ferrous Sulfate 325 MG Tablet PO (09:14)
[2019-11-02] MEDS: Folic Acid 1 MG Tablet PO (09:14)
--- NOTE | 2019-11-02 09:51 | NT.THERAPY_ITS ---
Nutrition Therapy Report - History Nutrition Services has been consulted to:: Manage nutrient details of diet order Current diet / nutrition support order:: Regular - Anthropometric Measurements Height:: 5 ft 7 in Weight:: 49 kg Body Mass Index (BMI):: 16.9 - Relevant Labs Relevant Labs:: WBC 11.8 K/mm3 (4.4-11.0) H 11/02/19 07:40 RBC 3.52 M/mm3 (4.2-5.4) L 11/02/19 07:40 Hgb 10.8 g/dL (12.0-15.0) L 11/02/19 07:40 Hct 33.1 % (37-47) L 11/02/19 07:40 MCHC 30.8 g/dL (32-36) L 11/01/19 19:50 RDW Std Deviation 60.8 fl (35.1-43.9) H 11/02/19 07:40 RDW Coeff of Lennox 18.8 % (11.6-14.6) H 11/02/19 07:40 Neut % (Auto) 95.4 % (47-70) H 11/02/19 07:40 Lymph % (Auto) 3.6 % (19-41) L 11/02/19 07:40 Absolute Neuts (auto) 11.2 X10^3/uL (2.0-7.7) H 11/02/19 07:40 Absolute Lymphs (auto) 0.42 X10^3/uL (0.83-4.51) L 11/02/19 07:40 Creatinine 0.35 mg/dL (0.55-1.02) L 11/02/19 07:40 BUN/Creatinine Ratio 20.2 RATIO (10-20) H 11/02/19 07:40 Glucose 217 mg/dL (74-106) H 11/02/19 07:40 Calcium 8.3 mg/dL (8.5-10.1) L 11/02/19 07:40 Magnesium 1.5 mg/dL (1.6-2.6) L 11/01/19 19:50 Alkaline Phosphatase 120 U/L (45-117) H 11/02/19 07:40 Total Protein 5.7 g/dL (6.4-8.2) L 11/02/19 07:40 Albumin 2.0 g/dL (3.2-5.0) L 11/02/19 07:40 Albumin/Globulin Ratio 0.5 RATIO (0.9-2.4) L 11/02/19 07:40 - Assessment Food / Nutrition-Related History:: Pt states Regular diet at home and po intake has been poor x 1 mo (living at [facility] and pt states that the food is really bad). Does not like ensure products as it tears my stomach up - ag reeable to trying CIB w/ meals for increased nutrition if consumed. UBW: 58.513 kg - wt loss of 16.3% x 1 mo (significant). 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 Also on iron supplement. [ End ] - Nutrition Diagnosis Problem / Etiology / Signs & Symptoms (PES):: Pt with inadequate oral intake r/t hospitalizations and living at SNF where she dislikes food AEB 16.3% wt loss, fat/muscle loss and poor po intake. [ End ] Evidence of Malnutrition Exists:: Yes Severe PCM:: Acute Illness - Nutrition Intervention Nutrition Prescription:: 1800- 2000 amanda / 55-65 gm pro/ day - Food / Nutrient Delivery Interventions Summary of nutrition intervention:: Rec continue liberal regular diet d/t s/s of malnutrition. Will provide shereen CIB w/ meals for increased nutrition if consumed. [ End ] Nutrition education provided?: No - MNT Monitoring Further MNT monitoring and evaluation required?: Yes MNT Follow-up in:: 3-5 days - please call RD/LD if questions [phone]
[2019-11-02] MEDS: traMADol 50 MG Tablet PO ×2 (10:47→22:05)
--- NOTE | 2019-11-02 12:41 | PN_ITS ---
<JavyAzra SENIOR BUSINESS INTELLIGENCE ANALYST - Last Filed: 11/02/19 13:05> Patient Problems: Active and Suspected Problems Acute respiratory failure with hypoxia (Acute) Pneumonia (Acute) Sepsis (Acute) COPD exacerbation (Acute) Iron deficiency anemia due to chronic blood loss (Acute) Subjective: Patient seen and examined. Complains of wet cough which she reports started Tuesday. Denies fever, chills. Denies shortness of breath. Denies lightheadedness. Denies blood in stool. - Physical Exam Vitals/I&O's: Vital Signs Temp Pulse Resp BP Pulse Ox 97.9 F 89 20 H 111/61 97 11/02/19 08:52 11/02/19 10:40 11/02/19 10:40 11/02/19 08:52 11/02/19 09:30 Oxygen Flow Rate (L/min) 4 Oxygen Delivery Method Nasal Cannula Weight: 108 lb 0.424 oz Body Mass Index (BMI) 16.9 Intake and Output for Last 24 Hours 10/31/19 11/01/19 11/02/19 23:59 23:59 23:59 Intake Total 100 / 100 0. / 2069.00 Output Total 300 / 300 Balance 100 / 100 1770.00 / 177.00 General: Alert, Oriented x3, Cooperative, - - Appears older than stated age HEENT: Atraumatic, PERRLA, EOMI, Normocephalic Neck: Supple, No JVD, Negative Carotid Bruits Lungs: Clear to auscultation, Diminished Cardiovascular: Regular rate, No murmurs Abdomen: Bowel Sounds Present, Soft, Non Tender, Non-Distended Extremities: No clubbing, No cyanosis, No edema, Capillary Refill Less than 3 Seconds Skin: No rashes, No breakdown Musculoskeletal: No Tenderness to Palpation of Joints or Extremities Neurological: Cranial nerves II-XII grossly intact, Neuro grossly intact Psych/Mental Status: Normal Affect, Appropriate Microbiology Past 72 Hours 11/02/19 11:55 Stool Stool Occult Blood (YUE) - Final Occult Blood Positive 11/02/19 07:10 Urine, Clean Catch Streptococcus pneumoniae Antigen (M - Final 11/02/19 07:10 Urine, Clean Catch Legionella Antigen - Final 11/01/19 20:13 Mucosa - Nasopharyngeal Respiratory Panel (PCR) - Final Laboratory Results 11/01/19 19:50: WBC 27.4 H, RBC 2.43 L, Hgb 7.2 L, Hct 23.4 L, MCV 96.3 D, MCH 29.6, MCHC 30.8 L, RDW Std Deviation 78.5 H, RDW Coeff of Lennox 22.8 H, Plt Count 346, MPV 9.8, Immature Gran % (Auto) 0.600, Neut % (Auto) 93.0 H, Lymph % (Auto) 3.0 L, Owsley % (Auto) 3.2, Eos % (Auto) 0.0, Baso % (Auto) 0.2, Absolute Neuts (auto) 25.5 H, Absolute Lymphs (auto) 0.83, Nucleated RBC % 0, Polychromasia 1+, Anisocytosis 2+, Macrocytosis 1+ 11/01/19 19:50: Sodium 136, Potassium 3.7, Chloride 101, Carbon Dioxide 29.0, Anion Gap 6, BUN 9, Creatinine 0.36 L, Estim Creat Clear Calc 125.68, Est GFR (MDRD) Af Amer 236, Est GFR (MDRD) Non-Af 195, BUN/Creatinine Ratio 25.4 H, Glucose 132 H, Calcium 8.4 L, Total Bilirubin 0.30, AST 23, ALT 22, Alkaline Phosphatase 133 H, Total Protein 5.9 L, Albumin 2.1 L, Globulin 3.8, Albumin/Globulin Ratio 0.6 L 11/01/19 19:50: Crossmatch See Detail 11/01/19 19:50: PT 12.1, INR 0.9, APTT 35.7 11/01/19 19:50: Lactic Acid 1.3 11/01/19 19:50: Blood Type O POSITIVE, Antibody Screen NEGATIVE 11/01/19 19:50: Magnesium 1.5 L 11/01/19 20:13: COVID-19 (TEJAS) Negative 11/02/19 00:30: MRSA (PCR) Negative 11/02/19 01:50: Troponin I < 0.015 11/02/19 05:17: Troponin I < 0.015 11/02/19 07:40: WBC 11.8 H, RBC 3.52 L, Hgb 10.8 L, Hct 33.1 L, MCV 94.0, MCH 30.7, MCHC 32.6 D, RDW Std Deviation 60.8 H, RDW Coeff of Lennox 18.8 H, Plt Count 282, MPV 9.4, Immature Gran % (Auto) 0.600, Neut % (Auto) 95.4 H, Lymph % (Auto) 3.6 L, Owsley % (Auto) 0.3, Eos % (Auto) 0.0, Baso % (Auto) 0.1, Absolute Neuts (auto) 11.2 H, Absolute Lymphs (auto) 0.42 L, Nucleated RBC % 0, Differential Comment SCANNED 11/02/19 07:40: Sodium 137, Potassium 3.9, Chloride 103, Carbon Dioxide 25.0, Anion Gap 9, BUN 7, Creatinine 0.35 L, Estim Creat Clear Calc 123.96, Est GFR (MDRD) Af Amer 243, Est GFR (MDRD) Non-Af 201, BUN/Creatinine Ratio 20.2 H, Glucose 217 H, Calcium 8.3 L, Total Bilirubin 0.50, AST 15, ALT 16, Alkaline Phosphatase 120 H, Total Protein 5.7 L, Albumin 2.0 L, Globulin 3.7, Albumin/Globulin Ratio 0.5 L 11/02/19 07:40: Hemoglobin A1c 5.1 11/02/19 07:40: Troponin I < 0.015 Current Medications Acetaminophen (Tylenol) 650 mg PO Q6H PRN PRN PRN Reason: Pain Score 1-10/Temp > 100.7 F Al Hydroxide/Mg Hydroxide (Mylanta Ii) 30 ml PO Q6H PRN PRN PRN Reason: Gastric Burning Albuterol Sulfate (Ventolin Aerosols) 2.5 mg INHALATION Q2H PRN PRN PRN Reason: Dyspnea, wheezing Albuterol/Ipratropium (Duoneb) 3 ml INHALATION Q4HWA.RT [facility] Last Admin: 11/02/19 10:40 Dose: 3 ml Documented by: Alprazolam (Xanax) 0.5 mg PO QHS PRN PRN PRN Reason: INSOMNIA Citalopram Hydrobromide (Celexa) 10 mg PO DAILY [facility] Last Admin: 11/02/19 09:14 Dose: 10 mg Documented by: [facility]) [facility] Last Admin: 11/02/19 09:14 Dose: 325 mg Documented by: Folic Acid (Folic Acid) 1 mg PO DAILYCM [facility] Last Admin: 11/02/19 09:14 Dose: 1 mg Documented by: Guaifenesin (Robitussin) 20 ml PO Q4H PRN PRN PRN Reason: COUGH Hydralazine HCl (Apresoline Iv) 10 mg IV Q4H PRN PRN PRN Reason: SBP > 160 Sodium Chloride () 1,000 mls @ 100 mls/hr IV .Q10H [facility] Last Admin: 11/02/19 10:39 Dose: 100 mls/hr Documented by: Pantoprazole Sodium 40 mg/ (Sodium Chloride) 110 mls @ 330 mls/hr IV Q12 [facility] Last Infusion: 11/02/19 10:59 Dose: Infused Documented by: Piperacillin Sod/Tazobactam (Sod 3.375 gm/ Sodium Chloride) 50 mls @ 12.5 mls/hr IV Q8 [facility] Last Infusion: 11/02/19 09:29 Dose: Infused Documented by: Lorazepam (Ativan) 0.5 mg PO BID PRN PRN PRN Reason: ANXIETY Last Admin: 11/02/19 02:29 Dose: 0.5 mg Documented by: Magnesium Hydroxide (Milk Of Magnesia) 30 ml PO DAILY PRN PRN PRN Reason: Constipation Melatonin (Melatonin) 3 mg PO QHS PRN PRN PRN Reason: INSOMNIA Methylprednisolone (Solu-Medrol) 40 mg IV Q8 [facility] Last Admin: 11/02/19 05:21 Dose: 40 mg Documented by: Morphine Sulfate () 2 mg IV Q3H PRN PRN PRN Reason: Pain Score 6-10/10 Last Admin: 11/01/19 23:36 Dose: 2 mg Documented by: Nitroglycerin (Nitrostat) 0.4 mg SUBLINGUAL Q5M PRN PRN Reason: CARDIAC/CHEST PAIN Ondansetron HCl (Zofran) 4 mg IV Q8H PRN PRN PRN Reason: NAUSEA/VOMITING Potassium Chloride (K-Dur) 10 meq PO DAILY [facility] Last Admin: 11/02/19 09:14 Dose: 10 meq Documented by: Prochlorperazine Edisylate (Compazine Iv) 5 mg IV Q4H PRN PRN PRN Reason: Breakthrough Nausea/Vomiting Psyllium Hydrophilic Mucilloid (Metamucil) 1 packet PO DAILY PRN PRN PRN Reason: Constipation Senna/Docusate Sodium (Senokot-S, Deya-Colace) 2 tablet PO BID PRN PRN PRN Reason: Constipation Sodium Chloride () 10 - 40 ml IV UD PRN PRN Reason: SALINE FLUSH Last Admin: 11/02/19 05:21 Dose: 10 ml Documented by: Thiamine HCl (Vitamin B1) 100 mg PO DAILY [facility] Last Admin: 11/02/19 09:14 Dose: 100 mg Documented by: Throat Lozenges (Cepacol Sore Throat Lozenge) 1 lozenge MUCOUS MEM Q2H PRN PRN PRN Reason: SORE THROAT Tramadol HCl (Ultram) 50 mg PO Q8H PRN PRN PRN Reason: Pain Score 4-5/10 Last Admin: 11/02/19 10:47 Dose: 50 mg Documented by: Medical Necessity - Tobacco Use Smoking Status: Former smoker Assessment/Plan All Active Problems Acute respiratory failure with hypoxia (Acute) Pneumonia (Acute) Sepsis (Acute) COPD exacerbation (Acute) Iron deficiency anemia due to chronic blood loss (Acute) Generalized weakness (Acute) Leukocytosis (Acute) Thrombocytosis (Acute) Anemia (Acute) 1. Acute on chronic anemia- Seen by hematology during recent admission September 2019 and felt to be iron deficiency anemia/ Anemia of chronic disease. Patient did undergo recent GI evaluation at [facility]. Patient does not know findings of workup. Stool for occult blood positive. Will request records. Continue IV PPI. Hemoglobin stable status post 2 units PRBC. Patient will need further outpatient follow-up with hematology. Continue iron supplementation. Given stable hemoglobin, likely outpatient follow-up with GI/general surgery. 2. Acute hypoxia, possibly secondary to exacerbation of COPD-Patient reports wet cough. Denies fever, chills. Chest x-ray with right middle lobe scarring. No acute process. Check BNP. COVID negative. Respiratory panel negative. Low suspicion for pneumonia however will continue antibiotics empirically pending further work-up. Check sputum culture. Albuterol and DuoNeb aerosols. Continue supplement oxygen to maintain O2 at or above 90%. Repeat chest x-ray in a.m. Continue IV Solu-Medrol. 3. Leukocytosis-appears chronic. Suspect reactive leukocytosis. Previously seen by hematology as noted above for leukocytosis and thrombocytosis. 4. History of alcohol abuse-recently sober. 5. Anxiety/depression-continue home Celexa, Xanax. 6. Former tobacco use-encouraged continued cessation. 7. Severe protein calorie malnutrition-dietitian consult. DVT prophylaxis-SCDs Discharge planning: Return to SNF pending pre-CERT. This patient was seen by YEN Cook under the supervision of Dr. Bruce. <Guille Bruce - Last Filed: 11/02/19 13:48> - Physical Exam Vitals/I&O's: Vital Signs Temp Pulse Resp BP Pulse Ox 97.9 F 89 20 H 111/61 97 11/02/19 08:52 11/02/19 10:40 11/02/19 10:40 11/02/19 08:52 11/02/19 09:30 Oxygen Flow Rate (L/min) 4 Oxygen Delivery Method Nasal Cannula Weight: 49 kg Body Mass Index (BMI) 16.9 Intake and Output for Last 24 Hours 10/31/19 11/01/19 11/02/19 23:59 23:59 23:59 Intake Total 100 / 100 2070.00 / 2070.00 Output Total 300 / 300 Balance 100 / 100 1770.00 / 1770.00 Microbiology Past 72 Hours 11/02/19 11:55 Stool Stool Occult Blood (YUE) - Final Occult Blood Positive 11/02/19 07:10 Urine, Clean Catch Streptococcus pneumoniae Antigen (M - Final 11/02/19 07:10 Urine, Clean Catch Legionella Antigen - Final 11/01/19 20:13 Mucosa - Nasopharyngeal Respiratory Panel (PCR) - Final Laboratory Results 11/01/19 19:50: WBC 27.4 H, RBC 2.43 L, Hgb 7.2 L, Hct 23.4 L, MCV 96.3 D, MCH 29.6, MCHC 30.8 L, RDW Std Deviation 78.5 H, RDW Coeff of Lennox 22.8 H, Plt Count 346, MPV 9.8, Immature Gran % (Auto) 0.600, Neut % (Auto) 93.0 H, Lymph % (Auto) 3.0 L, Owsley % (Auto) 3.2, Eos % (Auto) 0.0, Baso % (Auto) 0.2, Absolute Neuts (auto) 25.5 H, Absolute Lymphs (auto) 0.83, Nucleated RBC % 0, Polychromasia 1+, Anisocytosis 2+, Macrocytosis 1+ 11/01/19 19:50: Sodium 136, Potassium 3.7, Chloride 101, Carbon Dioxide 29.0, Anion Gap 6, BUN 9, Creatinine 0.36 L, Estim Creat Clear Calc 125.68, Est GFR (MDRD) Af Amer 236, Est GFR (MDRD) Non-Af 195, BUN/Creatinine Ratio 25.4 H, Glucose 132 H, Calcium 8.4 L, Total Bilirubin 0.30, AST 23, ALT 22, Alkaline Phosphatase 133 H, Total Protein 5.9 L, Albumin 2.1 L, Globulin 3.8, Albumin/Globulin Ratio 0.6 L 11/01/19 19:50: Crossmatch See Detail 11/01/19 19:50: PT 12.1, INR 0.9, APTT 35.7 11/01/19 19:50: Lactic Acid 1.3 11/01/19 19:50: Blood Type O POSITIVE, Antibody Screen NEGATIVE 11/01/19 19:50: Magnesium 1.5 L 11/01/19 20:13: COVID-19 (TEJAS) Negative 11/02/19 00:30: MRSA (PCR) Negative 11/02/19 01:50: Troponin I < 0.015 11/02/19 05:17: Troponin I < 0.015 11/02/19 07:40: WBC 11.8 H, RBC 3.52 L, Hgb 10.8 L, Hct 33.1 L, MCV 94.0, MCH 30.7, MCHC 32.6 D, RDW Std Deviation 60.8 H, RDW Coeff of Lennox 18.8 H, Plt Count 282, MPV 9.4, Immature Gran % (Auto) 0.600, Neut % (Auto) 95.4 H, Lymph % (Auto) 3.6 L, Owsley % (Auto) 0.3, Eos % (Auto) 0.0, Baso % (Auto) 0.1, Absolute Neuts (auto) 11.2 H, Absolute Lymphs (auto) 0.42 L, Nucleated RBC % 0, Differential Comment SCANNED 11/02/19 07:40: Sodium 137, Potassium 3.9, Chloride 103, Carbon Dioxide 25.0, Anion Gap 9, BUN 7, Creatinine 0.35 L, Estim Creat Clear Calc 123.96, Est GFR (MDRD) Af Amer 243, Est GFR (MDRD) Non-Af 201, BUN/Creatinine Ratio 20.2 H, Glucose 217 H, Calcium 8.3 L, Total Bilirubin 0.50, AST 15, ALT 16, Alkaline Phosphatase 120 H, Total Protein 5.7 L, Albumin 2.0 L, Globulin 3.7, Albumin/Globulin Ratio 0.5 L 11/02/19 07:40: Hemoglobin A1c 5.1 11/02/19 07:40: Troponin I < 0.015 11/02/19 07:40: B-Natriuretic Peptide 136.5 H Current Medications Acetaminophen (Tylenol) 650 mg PO Q6H PRN PRN PRN Reason: Pain Score 1-10/Temp > 100.7 F Al Hydroxide/Mg Hydroxide (Mylanta Ii) 30 ml PO Q6H PRN PRN PRN Reason: Gastric Burning Albuterol Sulfate (Ventolin Aerosols) 2.5 mg INHALATION Q2H PRN PRN PRN Reason: Dyspnea, wheezing Albuterol/Ipratropium (Duoneb) 3 ml INHALATION Q4HWA.RT [facility] Last Admin: 11/02/19 10:40 Dose: 3 ml Documented by: Alprazolam (Xanax) 0.5 mg PO QHS PRN PRN PRN Reason: INSOMNIA Citalopram Hydrobromide (Celexa) 10 mg PO DAILY [facility] Last Admin: 11/02/19 09:14 Dose: 10 mg Documented by: Ferrous Sulfate ([facility] Sulfate) [facility] Last Admin: 11/02/19 09:14 Dose: 325 mg Documented by: Folic Acid (Folic Acid) 1 mg PO DAILYCM [facility] Last Admin: 11/02/19 09:14 Dose: 1 mg Documented by: Guaifenesin (Robitussin) 20 ml PO Q4H PRN PRN PRN Reason: COUGH Hydralazine HCl (Apresoline Iv) 10 mg IV Q4H PRN PRN PRN Reason: SBP > 160 Sodium Chloride () 1,000 mls @ 100 mls/hr IV .Q10H [facility] Last Admin: 11/02/19 10:39 Dose: 100 mls/hr Documented by: Pantoprazole Sodium 40 mg/ (Sodium Chloride) 110 mls @ 330 mls/hr IV Q12 [facility] Last Infusion: 11/02/19 10:59 Dose: Infused Documented by: Piperacillin Sod/Tazobactam (Sod 3.375 gm/ Sodium Chloride) 50 mls @ 12.5 m ls/hr IV Q8 [facility] Last Infusion: 11/02/19 09:29 Dose: Infused Documented by: Lorazepam (Ativan) 0.5 mg PO BID PRN PRN PRN Reason: ANXIETY Last Admin: 11/02/19 02:29 Dose: 0.5 mg Documented by: Magnesium Hydroxide (Milk Of Magnesia) 30 ml PO DAILY PRN PRN PRN Reason: Constipation Melatonin (Melatonin) 3 mg PO QHS PRN PRN PRN Reason: INSOMNIA Methylprednisolone (Solu-Medrol) 40 mg IV Q8 [facility] Last Admin: 11/02/19 05:21 Dose: 40 mg Documented by: Morphine Sulfate () 2 mg IV Q3H PRN PRN PRN Reason: Pain Score 6-10/10 Last Admin: 11/01/19 23:36 Dose: 2 mg Documented by: Nitroglycerin (Nitrostat) 0.4 mg SUBLINGUAL Q5M PRN PRN Reason: CARDIAC/CHEST PAIN Ondansetron HCl (Zofran) 4 mg IV Q8H PRN PRN PRN Reason: NAUSEA/VOMITING Potassium Chloride (K-Dur) 10 meq PO DAILY [facility] Last Admin: 11/02/19 09:14 Dose: 10 meq Documented by: Prochlorperazine Edisylate (Compazine Iv) 5 mg IV Q4H PRN PRN PRN Reason: Breakthrough Nausea/Vomiting Psyllium Hydrophilic Mucilloid (Metamucil) 1 packet PO DAILY PRN PRN PRN Reason: Constipation Senna/Docusate Sodium (Senokot-S, Deya-Colace) 2 tablet PO BID PRN PRN PRN Reason: Constipation Sodium Chloride () 10 - 40 ml IV UD PRN PRN Reason: SALINE FLUSH Last Admin: 11/02/19 05:21 Dose: 10 ml Documented by: Thiamine HCl (Vitamin B1) 100 mg PO DAILY [facility] Last Admin: 11/02/19 09:14 Dose: 100 mg Documented by: Throat Lozenges (Cepacol Sore Throat Lozenge) 1 lozenge MUCOUS MEM Q2H PRN PRN PRN Reason: SORE THROAT Tramadol HCl (Ultram) 50 mg PO Q8H PRN PRN PRN Reason: Pain Score 4-5/10 Last Admin: 11/02/19 10:47 Dose: 50 mg Documented by: Assessment/Plan This patient was seen in conjunction with YEN Cook . I have independently interviewed and examined the patient and reviewed pertinent historical, laboratory, and other data. Please refer to YEN Cook note for details of this patient's presentation, findings, and recommendations. I have reviewed YEN Cook note and concur with documented findings. In brief, patient is a 64-year-old lady with recent prolonged hospitalization at [facility] currently at an extended care facility brought to the ED with abnormal labs. Patient was found to be anemic with hemoglobin of 7.2 admitted to a monitored bed for transfusion. Physical Examination: GENERAL: cooperative HEENT: Atraumatic; EYES; Anicteric, Normal Conjunctiva NECK; supple, normal thyroid, RESPIRATORY: Diminished to auscultation CARDIOVASCULAR: Regular S1 S2, GI: soft, normoactive bowel sounds, : No Renal angle tenderness; NEURO: Awake; no lateralizing signs. SKIN: No Rash PSYCH; Flat affect Assessment: 1. Symptomatic anemia 2. Sepsis ruled out 3. Pneumonia ruled out 4. Function secondary to combination of COPD and anemia 5. COPD 6. Severe protein calorie malnutrition as evidenced by significant weight loss, low BMI, muscle wasting and decreased energy level 7. Leukocytosis 7. Chronic alcohol abuse 9. Depression with anxiety Recommendations: 1. I have discussed the results of my overview and impressions with the patient 2. Options for management were reviewed Inpatient E&M: [id number] Subs Hosp L2
[2019-11-02 13:25] LABS: BNP,B-Type NATRIURETIC PEPTIDE 136.5 pg/mL (0-100)
--- NOTE | 2019-11-02 14:20 | CASEMGMT ---
CM Readmission Note Previous Admission: 10/22/19-10/23/19 Diagnosis: Debility DC Disposition: SNF Current Admission Presentation: Sepsis, pneumonia Patient was dc'd to SNF last admission. Now with cough, fever, possible aspiration vs HCAP with hypoxia. On 4-6l NC, duonebs, IV Solumedrol, Zosyn. Plt count 921. Plan is to return to SNF on discharge. DC PLAN: return to [place] @ [facility] on DC. Carlota FRIZTN RN ACM
--- NOTE | 2019-11-02 14:47 | CASEMGMT ---
Patient is from [place] and she plans on returning. DEVIKA spoke with Lula and patient will need a pre-cert. DEVIKA faxed all clinicals to [place] and Lula will start the pre-cert. DEVIKA will put a green sheet on patient's chart in the event we do get approval. Plan: d/c back to [place] under skilled level of care pending pre-cert. Krista ZHANG MSW
[2019-11-02] MEDS: Furosemide 20 MG/2 ML VIAL IV (15:58)
[2019-11-02] MEDS: ALPRAZolam 0.5 MG Tablet PO (22:54)
[2019-11-03] VITALS (14 sets, daily range): BP systolic 125–138; BP diastolic 65–77; PULSE 68–103; RESP 16–20; TEMP 36.9–37.2; O2SAT 94–100
[2019-11-03] MEDS: LORazepam 0.5 MG Tablet PO ×2 (02:50→18:28)
[2019-11-03] MEDS: 0.9% Saline Lock 10 ML Syringe IV (05:20)
[2019-11-03] MEDS: 0.9% Normal Saline 1,000 ML 100 ML IV ×2 (05:26→16:37)
--- NOTE | 2019-11-03 05:55 | RAD_ITS ---
STUDY: X-RAY CHEST REASON FOR EXAM: Female, 64 years old. Hypoxia, cough. TECHNIQUE: PA and lateral views of the chest. COMPARISON: 11/01/2019 FINDINGS: There is hyperinflation of the lungs consistent with chronic obstructive lung disease (COPD). Interval development of alveolar opacity in the lower left lung consistent with lingular pneumonia. No change in the fluid in the minor fissure the right lung. No change in tiny bilateral pleural effusions. There is moderate cardiac enlargement. Normal mediastinum and laurent. Normal visualized pulmonary arteries. Normal visualized aortic arch and descending thoracic aorta. Normal visualized thoracic spine. Normal visualized ribs, clavicles, and shoulders. There is no demonstrated abnormality of the visualized soft tissue structures of the upper abdomen. RAD/Chest PA and Lateral IMPRESSION: Interval development of lingular pneumonia. Electronically Signed: Van Beck MD at 6:35 EDT Tel , Service support ,
[2019-11-03] MEDS: Ipratropium/Albuterol Sulfate 3 ML AMPUL.NEB INHALATION ×4 (07:13→19:04)
[2019-11-03 07:55] LABS: Hematocrit 28.5 % (37-47); Hemoglobin 9.3 g/dL (12.0-15.0); Mean Corp Hgb Conc 32.6 g/dL (32-36); Mean Corpuscular Hgb 30.8 pg (27.0-32.0); Mean Corpuscular Volume 94.4 fL (81-99); Mean Platelet Vol. 9.4 fl (6.2-12.0); Platelet Count 303 K/mm3 (150-450); RBC Distribution Width CV 19.1 % (11.6-14.6); RBC Distribution Width SD 64.6 fl (35.1-43.9); Red Blood Count 3.02 M/mm3 (4.2-5.4); White Blood Count 11.5 K/mm3 (4.4-11.0)
[2019-11-03 08:56] LABS: Hemoglobin 9.9 g/dL (12.0-15.0); Mean Corp Hgb Conc 31.9 g/dL (32-36); Mean Corpuscular Hgb 30.8 pg (27.0-32.0); Mean Corpuscular Volume 96.6 fL (81-99); Mean Platelet Vol. 9.4 fl (6.2-12.0); POSITIVE MORPHOLOGY YES; Platelet Count 291 K/mm3 (150-450); RBC Distribution Width CV 19.3 % (11.6-14.6); RBC Distribution Width SD 67.2 fl (35.1-43.9); Red Blood Count 3.21 M/mm3 (4.2-5.4); White Blood Count 11.4 K/mm3 (4.4-11.0)
[2019-11-03 08:57] LABS: Scan Indicated on CBC? Y/N YES- FLAGS NOTED
[2019-11-03 09:03] LABS: Anion Gap 7 (5-15); BUN 7 mg/dL (7-18); BUN/Creat Ratio 20.2 RATIO (10-20); Calcium,Total 8.1 mg/dL (8.5-10.1); Chloride 104 mmol/L (98-107); Creatinine, Serum 0.35 mg/dL (0.55-1.02); EST Glomerular Filtration Rate 201 mL/min (>60); Est Glom Filt Rate - Afr Amer 244 mL/min (>60); Estimated Creatinine Clearance 123.96 ml/min; Glucose 267 mg/dL (74-106); Magnesium 1.6 mg/dL (1.6-2.6); Potassium 3.3 mmol/L (3.5-5.1); Sodium Level 134 mmol/L (136-145)
[2019-11-03] MEDS: Folic Acid 1 MG Tablet PO (09:48)
[2019-11-03] MEDS: Ferrous Sulfate 325 MG Tablet PO (09:48)
[2019-11-03] MEDS: Citalopram 10 MG Tablet PO (09:48)
[2019-11-03] MEDS: Thiamine Hydrochloride 100 MG Tablet PO (09:49)
[2019-11-03] MEDS: traMADol 50 MG Tablet PO ×2 (09:49→21:43)
--- NOTE | 2019-11-03 10:41 | PN_ITS ---
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 Denies current complaints. Denies shortness of breath. Denies cough, fever, chills. - Physical Exam Vitals/I&O's: Vital Signs Temp Pulse Resp BP Pulse Ox 98.4 F 87 16 128/68 H 100 11/03/19 09:34 11/03/19 09:34 11/03/19 09:34 11/03/19 09:34 11/03/19 09:34 Oxygen Flow Rate (L/min) 3 Oxygen Delivery Method Nasal Cannula Weight: 108 lb 0.424 oz Body Mass Index (BMI) 16.9 Intake and Output for Last 24 Hours 11/01/19 11/02/19 11/03/19 23:59 23:59 23:59 Intake Total 100 / 100 3870.00 / 3870.00 2100 / 2100 Output Total 1400 / 1400 450 / 450 Balance 100 / 100 2470.00 / 2470.00 1650 / 1650 General: Alert, Oriented x3, Cooperative, - - Appears older than stated age HEENT: Atraumatic, PERRLA, EOMI, Normocephalic Oral: Dry Mucosa Neck: Supple, No JVD, Negative Carotid Bruits Lungs: Clear to auscultation, Diminished Cardiovascular: Regular rate, No murmurs Abdomen: Bowel Sounds Present, Soft, Non Tender, Non-Distended Extremities: No clubbing, No cyanosis, No edema, Capillary Refill Less than 3 Seconds Skin: No rashes, No breakdown Musculoskeletal: No Tenderness to Palpation of Joints or Extremities Neurological: Cranial nerves II-XII grossly intact, Neuro grossly intact Psych/Mental Status: Normal Affect, Appropriate Microbiology Past 72 Hours 11/02/19 11:55 Stool Stool Occult Blood (YUE) - Final Occult Blood Positive 11/02/19 07:10 Urine, Clean Catch Streptococcus pneumoniae Antigen (M - Final 11/02/19 07:10 Urine, Clean Catch Legionella Antigen - Final 11/01/19 20:13 Mucosa - Nasopharyngeal Respiratory Panel (PCR) - Final Laboratory Results 11/02/19 07:40: B-Natriuretic Peptide 136.5 H 11/03/19 07:15: WBC 11.5 H, RBC 3.02 L, Hgb 9.3 L, Hct 28.5 L, MCV 94.4, MCH 30.8, MCHC 32.6, RDW Std Deviation 64.6 H, RDW Coeff of Lennox 19.1 H, Plt Count 303, MPV 9.4 11/03/19 08:45: WBC 11.4 H, RBC 3.21 L, Hgb 9.9 L, Hct 31.0 L, MCV 96.6, MCH 30.8, MCHC 31.9 L, RDW Std Deviation 67.2 H, RDW Coeff of Lennox 19.3 H, Plt Count 291, MPV 9.4, Differential Comment 11/03/19 08:45: Sodium 134 L, Potassium 3.3 L, Chloride 104, Carbon Dioxide 23.0, Anion Gap 7, BUN 7, Creatinine 0.35 L, Estim Creat Clear Calc 123.96, Est GFR (MDRD) Af Amer 244, Est GFR (MDRD) Non-Af 201, BUN/Creatinine Ratio 20.2 H, Glucose 267 H, Calcium 8.1 L, Magnesium 1.6 Current Medications Acetaminophen (Tylenol) 650 mg PO Q6H PRN PRN PRN Reason: Pain Score 1-10/Temp > 100.7 F Al Hydroxide/Mg Hydroxide (Mylanta Ii) 30 ml PO Q6H PRN PRN PRN Reason: Gastric Burning Albuterol Sulfate (Ventolin Aerosols) 2.5 mg INHALATION Q2H PRN PRN PRN Reason: Dyspnea, wheezing Albuterol/Ipratropium (Duoneb) 3 ml INHALATION Q4HWA.RT [facility] Last Admin: 11/03/19 07:13 Dose: 3 ml Documented by: Alprazolam (Xanax) 0.5 mg PO QHS PRN PRN PRN Reason: INSOMNIA Last Admin: 11/02/19 22:54 Dose: 0.5 mg Documented by: Citalopram Hydrobromide (Celexa) 10 mg PO DAILY [facility] Last Admin: 11/03/19 09:48 Dose: 10 mg Documented by: Ferrous S[facility] ([facility] S[facility]ate) [facility] Last Admin: 11/03/19 09:48 Dose: 325 mg Documented by: Folic Acid (Folic Acid) 1 mg PO DAILYCM [facility] Last Admin: 11/03/19 09:48 Dose: 1 mg Documented by: Guaifenesin (Robitussin) 20 ml PO Q4H PRN PRN PRN Reason: COUGH Hydralazine HCl (Apresoline Iv) 10 mg IV Q4H PRN PRN PRN Reason: SBP > 160 Sodium Chloride () 1,000 mls @ 100 mls/hr IV .Q10H [facility] Last Admin: 11/03/19 05:26 Dose: 100 mls/hr Documented by: Pantoprazole Sodium 40 mg/ (Sodium Chloride) 110 mls @ 330 mls/hr IV Q12 [facility] Last Infusion: 11/02/19 22:47 Dose: Infused Documented by: Piperacillin Sod/Tazobactam (Sod 3.375 gm/ Sodium Chloride) 50 mls @ 12.5 mls/hr IV Q8 [facility] Last Admin: 11/03/19 05:22 Dose: 12.5 mls/hr Documented by: Lorazepam (Ativan) 0.5 mg PO BID PRN PRN PRN Reason: ANXIETY Last Admin: 11/03/19 02:50 Dose: 0.5 mg Documented by: Magnesium Hydroxide (Milk Of Magnesia) 30 ml PO DAILY PRN PRN PRN Reason: Constipation Melatonin (Melatonin) 3 mg PO QHS PRN PRN PRN Reason: INSOMNIA Methylprednisolone (Solu-Medrol) 40 mg IV Q8 [facility] Last Admin: 11/03/19 05:20 Dose: 40 mg Documented by: Morphine Sulfate () 2 mg IV Q3H PRN PRN PRN Reason: Pain Score 6-10/10 Last Admin: 11/01/19 23:36 Dose: 2 mg Documented by: Nitroglycerin (Nitrostat) 0.4 mg SUBLINGUAL Q5M PRN PRN Reason: CARDIAC/CHEST PAIN Ondansetron HCl (Zofran) 4 mg IV Q8H PRN PRN PRN Reason: NAUSEA/VOMITING Potassium Chloride (K-Dur) 10 meq PO DAILY [facility] Last Admin: 11/03/19 09:48 Dose: 10 meq Documented by: Prochlorperazine Edisylate (Compazine Iv) 5 mg IV Q4H PRN PRN PRN Reason: Breakthrough Nausea/Vomiting Psyllium Hydrophilic Mucilloid (Metamucil) 1 packet PO DAILY PRN PRN PRN Reason: Constipation Senna/Docusate Sodium (Senokot-S, Deya-Colace) 2 tablet PO BID PRN PRN PRN Reason: Constipation Sodium Chloride () 10 - 40 ml IV UD PRN PRN Reason: SALINE FLUSH Last Admin: 11/03/19 05:20 Dose: 10 ml Documented by: Thiamine HCl (Vitamin B1) 100 mg PO DAILY [facility] Last Admin: 11/03/19 09:49 Dose: 100 mg Documented by: Throat Lozenges (Cepacol Sore Throat Lozenge) 1 lozenge MUCOUS MEM Q2H PRN PRN PRN Reason: SORE THROAT Tramadol HCl (Ultram) 50 mg PO Q8H PRN PRN PRN Reason: Pain Score 4-5/10 Last Admin: 11/03/19 09:49 Dose: 50 mg Documented by: Medical Necessity - Tobacco Use Smoking Status: Former smoker Assessment/Plan All Active Problems Acute respiratory failure with hypoxia (Acute) Pneumonia (Acute) Sepsis (Acute) COPD exacerbation (Acute) Iron deficiency anemia due to chronic blood loss (Acute) Generalized weakness (Acute) Leukocytosis (Acute) Thrombocytosis (Acute) Anemia (Acute) 1. Acute on chronic anemia- Seen by hematology during recent admission September 2019 and felt to be iron deficiency anemia/ Anemia of chronic disease. Patient did undergo recent GI evaluation at [facility] where she was found to have bleeding gastric ulcer status post clipping 10/05/2019. Ulcer was suspected secondary to EtOH abuse and NSAID use. Stool for occult blood positive. Continue IV PPI. Hemoglobin stable status post 2 units PRBC. Continue iron supplementation. Hemoglobin remains stable. Continue to hold aspirin. 2. Acute hypoxic respiratory insufficiency, secondary to exacerbation of COPD and left lower lobe lingular healthcare associated pneumonia-sepsis ruled out. Chest x-ray on admission with right middle lobe scarring. Repeat chest x-ray this a.m. shows interval development of lingular pneumonia. COVID negative. Respiratory panel negative. Albuterol and DuoNeb aerosols. Continue supplement oxygen to maintain O2 at or above 90%. Transition IV Solu-Medrol to prednisone taper. Continue IV Zosyn. Encourage incentive spirometer use. 3. Leukocytosis-appears chronic. Suspect reactive leukocytosis. Previously seen by hematology as noted above for leukocytosis and thrombocytosis. 4. History of alcohol abuse-recently sober. 5. Anxiety/depression-continue home Celexa, Xanax. 6. Former tobacco use-encouraged continued cessation. 7. Severe protein calorie malnutrition-dietitian consult. DVT prophylaxis-SCDs Discharge planning: Return to SNF pending pre-CERT. This patient was seen by YEN Cook under the supervision of Dr. Bruce. <Guille Bruce - Last Filed: 11/03/19 11:31> - Physical Exam Vitals/I&O's: Vital Signs Temp Pulse Resp BP Pulse Ox 98.4 F 87 16 128/68 H 100 11/03/19 09:34 11/03/19 09:34 11/03/19 09:34 11/03/19 09:34 11/03/19 09:34 Oxygen Flow Rate (L/min) 3 Oxygen Delivery Method Nasal Cannula Weight: 49 kg Body Mass Index (BMI) 16.9 Intake and Output for Last 24 Hours 11/01/19 11/02/19 11/03/19 23:59 23:59 23:59 Intake Total 100 / 100 3870.00 / 3870.00 2100 / 2100 Output Total 1400 / 1400 450 / 450 Balance 100 / 100 2470.00 / 2470.00 1650 / 1650 Microbiology Past 72 Hours 11/02/19 11:55 Stool Stool Occult Blood (YUE) - Final Occult Blood Positive 11/02/19 07:10 Urine, Clean Catch Streptococcus pneumoniae Antigen (M - Final 11/02/19 07:10 Urine, Clean Catch Legionella Antigen - Final 11/01/19 20:13 Mucosa - Nasopharyngeal Respiratory Panel (PCR) - Final Laboratory Results 11/02/19 07:40: B-Natriuretic Peptide 136.5 H 11/03/19 07:15: WBC 11.5 H, RBC 3.02 L, Hgb 9.3 L, Hct 28.5 L, MCV 94.4, MCH 30.8, MCHC 32.6, RDW Std Deviation 64.6 H, RDW Coeff of Lennox 19.1 H, Plt Count 303, MPV 9.4 11/03/19 08:45: WBC 11.4 H, RBC 3.21 L, Hgb 9.9 L, Hct 31.0 L, MCV 96.6, MCH 30.8, MCHC 31.9 L, RDW Std Deviation 67.2 H, RDW Coeff of Lennox 19.3 H, Plt Count 291, MPV 9.4, Differential Comment 11/03/19 08:45: Sodium 134 L, Potassium 3.3 L, Chloride 104, Carbon Dioxide 23.0, Anion Gap 7, BUN 7, Creatinine 0.35 L, Estim Creat Clear Calc 123.96, Est GFR (MDRD) Af Amer 244, Est GFR (MDRD) Non-Af 201, BUN/Creatinine Ratio 20.2 H, Glucose 267 H, Calcium 8.1 L, Magnesium 1.6 Current Medications Acetaminophen (Tylenol) 650 mg PO Q6H PRN PRN PRN Reason: Pain Score 1-10/Temp > 100.7 F Al Hydroxide/Mg Hydroxide (Mylanta Ii) 30 ml PO Q6H PRN PRN PRN Reason: Gastric Burning Albuterol Sulfate (Ventolin Aerosols) 2.5 mg INHALATION Q2H PRN PRN PRN Reason: Dyspnea, wheezing Albuterol/Ipratropium (Duoneb) 3 ml INHALATION Q4HWA.RT [facility] Last Admin: 11/03/19 11:21 Dose: 3 ml Documented by: Alprazolam (Xanax) 0.5 mg PO QHS PRN PRN PRN Reason: INSOMNIA Last Admin: 11/02/19 22:54 Dose: 0.5 mg Documented by: Citalopram Hydrobromide (Celexa) 10 mg PO DAILY [facility] Last Admin: 11/03/19 09:48 Dose: 10 mg Documented by: Ferrous Sulfate ([facility] Sulfate) [facility] Last Admin: 11/03/19 09:48 Dose: 325 mg Documented by: Folic Acid (Folic Acid) 1 mg PO DAILYCM [facility] Last Admin: 11/03/19 09:48 Dose: 1 mg Documented by: Guaifenesin (Mucinex) 1,200 mg PO BID [facility] Hydralazine HCl (Apresoline Iv) 10 mg IV Q4H PRN PRN PRN Reason: SBP > 160 Sodium Chloride () 1,000 mls @ 100 mls/hr IV .Q10H [facility] Last Admin: 11/03/19 05:26 Dose: 100 mls/hr Documented by: Pantoprazole Sodium 40 mg/ (Sodium Chloride) 110 mls @ 330 mls/hr IV Q12 [facility] Last Infusion: 11/02/19 22:47 Dose: Infused Documented by: Piperacillin Sod/Tazobactam (Sod 3.375 gm/ Sodium Chloride) 50 mls @ 12.5 mls/hr IV Q8 [facility] Last Admin: 11/03/19 05:22 Dose: 12.5 mls/hr Documented by: Lorazepam (Ativan) 0.5 mg PO BID PRN PRN PRN Reason: ANXIETY Last Admin: 11/03/19 02:50 Dose: 0.5 mg Documented by: Magnesium Hydroxide (Milk Of Magnesia) 30 ml PO DAILY PRN PRN PRN Reason: Constipation Melatonin (Melatonin) 3 mg PO QHS PRN PRN PRN Reason: INSOMNIA Morphine Sulfate () 2 mg IV Q3H PRN PRN PRN Reason: Pain Score 6-10/10 Last Admin: 11/01/19 23:36 Dose: 2 mg Documented by: Nitroglycerin (Nitrostat) 0.4 mg SUBLINGUAL Q5M PRN PRN Reason: CARDIAC/CHEST PAIN Ondansetron HCl (Zofran) 4 mg IV Q8H PRN PRN PRN Reason: NAUSEA/VOMITING Potassium Chloride (K-Dur) 10 meq PO DAILY [facility] Last Admin: 11/03/19 09:48 Dose: 10 meq Documented by: Potassium Chloride (K-Dur) 40 meq PO X1 ONE Stop: 11/03/19 11:06 Prednisone () 40 mg PO DAILY@0800 [facility] Prochlorperazine Edisylate (Compazine Iv) 5 mg IV Q4H PRN PRN PRN Reason: Breakthrough Nausea/Vomiting Psyllium Hydrophilic Mucilloid (Metamucil) 1 packet PO DAILY PRN PRN PRN Reason: Constipation Senna/Docusate Sodium (Senokot-S, Deya-Colace) 2 tablet PO BID PRN PRN PRN Reason: Constipation Sodium Chloride () 10 - 40 ml IV UD PRN PRN Reason: SALINE FLUSH Last Admin: 11/03/19 05:20 Dose: 10 ml Documented by: Thiamine HCl (Vitamin B1) 100 mg PO DAILY [facility] Last Admin: 11/03/19 09:49 Dose: 100 mg Documented by: Throat Lozenges (Cepacol Sore Throat Lozenge) 1 lozenge MUCOUS MEM Q2H PRN PRN PRN Reason: SORE THROAT Tramadol HCl (Ultram) 50 mg PO Q8H PRN PRN PRN Reason: Pain Score 4-5/10 Last Admin: 11/03/19 09:49 Dose: 50 mg Documented by: Assessment/Plan This patient was seen in conjunction with YEN Cook . I have inde pendently interviewed and examined the patient and reviewed pertinent historical, laboratory, and other data. Please refer to YEN Cook note for details of this patient's presentation, findings, and recommendations. I have reviewed YEN Cook note and concur with documented findings. In brief, patient is a 64-year-old lady with recent prolonged hospitalization at [facility] currently at an extended care facility brought to the ED with abnormal labs. Patient was found to be anemic with hemoglobin of 7.2 admitted to a monitored bed for transfusion. 11/03/2019: Patient seen clinical condition remains fairly stable. Diagnostic data testing done for hypokalemia and hyponatremia Physical Examination: GENERAL: cooperative HEENT: Atraumatic; EYES; Anicteric, Normal Conjunctiva NECK; supple, normal thyroid, RESPIRATORY: Diminished to auscultation CARDIOVASCULAR: Regular S1 S2, GI: soft, normoactive bowel sounds, : No Renal angle tenderness; NEURO: Awake; no lateralizing signs. SKIN: No Rash PSYCH; Flat affect Assessment: 1. Symptomatic anemia 2. Sepsis ruled out 3. Pneumonia ruled out 4. Function secondary to combination of COPD and anemia 5. COPD 6. Severe protein calorie malnutrition as evidenced by significant weight loss, low BMI, muscle wasting and decreased energy level 7. Leukocytosis 8. Chronic alcohol abuse 9. Depression with anxiety 10. Hypokalemia 11. Hyponatremia Recommendations: 1. I have discussed the results of my overview and impressions with the patient 2. Options for management were reviewed Inpatient E&M: [id number] [facility]
[2019-11-03] MEDS: MELATONIN 3 MG TABLET PO (20:42)
[2019-11-03] MEDS: guaiFENesin 1,200 MG Tablet 1200 MG PO (20:42)
[2019-11-04] VITALS (13 sets, daily range): BP systolic 112–131; BP diastolic 62–76; PULSE 76–107; RESP 16–20; TEMP 36.6–37.2; O2SAT 92–98
[2019-11-04] MEDS: 0.9% Normal Saline 1,000 ML 100 ML IV ×3 (01:55→21:07)
[2019-11-04 06:34] LABS: Hematocrit 29.8 % (37-47); Hemoglobin 9.4 g/dL (12.0-15.0); Mean Corp Hgb Conc 31.5 g/dL (32-36); Mean Corpuscular Hgb 30.4 pg (27.0-32.0); Mean Corpuscular Volume 96.4 fL (81-99); Mean Platelet Vol. 9.2 fl (6.2-12.0); POSITIVE MORPHOLOGY YES; Platelet Count 333 K/mm3 (150-450); RBC Distribution Width CV 19.1 % (11.6-14.6); RBC Distribution Width SD 68.1 fl (35.1-43.9); Red Blood Count 3.09 M/mm3 (4.2-5.4); Scan Indicated on CBC? Y/N YES- FLAGS NOTED; White Blood Count 13.2 K/mm3 (4.4-11.0)
[2019-11-04] MEDS: Ipratropium/Albuterol Sulfate 3 ML AMPUL.NEB INHALATION ×4 (06:43→18:48)
[2019-11-04 06:55] LABS: Anion Gap 5 (5-15); BUN 6 mg/dL (7-18); BUN/Creat Ratio 23.7 RATIO (10-20); Calcium,Total 7.7 mg/dL (8.5-10.1); Chloride 106 mmol/L (98-107); Creatinine, Serum 0.25 mg/dL (0.55-1.02); EST Glomerular Filtration Rate 289 mL/min (>60); Est Glom Filt Rate - Afr Amer 349 mL/min (>60); Estimated Creatinine Clearance 173.54 ml/min; Glucose 114 mg/dL (74-106); Potassium 3.2 mmol/L (3.5-5.1); Sodium Level 136 mmol/L (136-145)
[2019-11-04 07:09] LABS: Differential Comment SCANNED
[2019-11-04] MEDS: Ferrous Sulfate 325 MG Tablet PO (09:28)
[2019-11-04] MEDS: predniSONE 20 MG Tablet 40 MG PO (09:29)
[2019-11-04] MEDS: Folic Acid 1 MG Tablet PO (09:29)
[2019-11-04] MEDS: guaiFENesin 1,200 MG Tablet 1200 MG PO ×2 (09:30→21:08)
[2019-11-04] MEDS: Citalopram 10 MG Tablet PO (09:30)
[2019-11-04] MEDS: Thiamine Hydrochloride 100 MG Tablet PO (09:30)
[2019-11-04] MEDS: traMADol 50 MG Tablet PO ×2 (09:31→19:57)
--- NOTE | 2019-11-04 09:57 | PCM.PROGNOTE ---
<Azra Palafox ASSOCIATE RELATIONS SPECIALIST - Last Filed: 11/04/19 10:08> Patient Problems: Active and Suspected Problems Acute respiratory failure with hypoxia (Acute) Pneumonia (Acute) Sepsis (Acute) COPD exacerbation (Acute) Iron deficiency anemia due to chronic blood loss (Acute) Subjective: Patient seen and examined. No acute events overnight. Hemoglobin remained stable. Oxygen now stable on room air. - Physical Exam Vitals/I&O's: Vital Signs Temp Pulse Resp BP Pulse Ox 98.0 F 99 16 112/68 98 11/04/19 09:11 11/04/19 09:11 11/04/19 09:11 11/04/19 09:11 11/04/19 09:11 Oxygen Flow Rate (L/min) 2 Oxygen Delivery Method Room Air Weight: 108 lb 0.424 oz Body Mass Index (BMI) 16.9 Intake and Output for Last 24 Hours 11/02/19 11/03/19 11/04/19 23:59 23:59 23:59 Intake Total 3870.00 / 3870.00 4360 / 4360 1130.25 / 1130.25 Output Total 1400 / 1400 450 / 450 Balance 2470.00 / 2470.00 3910 / 3910 1130.25 / 1130.25 General: Alert, Oriented x3, Cooperative HEENT: Atraumatic, PERRLA, EOMI, Normocephalic Oral: Dry Mucosa Neck: Supple, No JVD, Negative Carotid Bruits Lungs: Clear to auscultation, Diminished Cardiovascular: Regular rate, No murmurs Abdomen: Bowel Sounds Present, Soft, Non Tender, Non-Distended Extremities: No clubbing, No cyanosis, No edema, Capillary Refill Less than 3 Seconds Skin: No rashes, No breakdown Musculoskeletal: No Tenderness to Palpation of Joints or Extremities Neurological: Cranial nerves II-XII grossly intact, Neuro grossly intact Psych/Mental Status: Normal Affect, Appropriate Microbiology Past 72 Hours 11/02/19 11:55 Stool Stool Occult Blood (YUE) - Final Occult Blood Positive 11/02/19 07:10 Urine, Clean Catch Streptococcus pneumoniae Antigen (M - Final 11/02/19 07:10 Urine, Clean Catch Legionella Antigen - Final 11/01/19 20:13 Mucosa - Nasopharyngeal Respiratory Panel (PCR) - Final Laboratory Results 11/04/19 05:50: WBC 13.2 H, RBC 3.09 L, Hgb 9.4 L, Hct 29.8 L, MCV 96.4, MCH 30.4, MCHC 31.5 L, RDW Std Deviation 68.1 H, RDW Coeff of Lennox 19.1 H, Plt Count 333, MPV 9.2, Differential Comment SCANNED 11/04/19 05:50: Sodium 136, Potassium 3.2 L, Chloride 106, Carbon Dioxide 25.0, Anion Gap 5, BUN 6 L, Creatinine 0.25 L, Estim Creat Clear Calc 173.54, Est GFR (MDRD) Af Amer 349, Est GFR (MDRD) Non-Af 289, BUN/Creatinine Ratio 23.7 H, Glucose 114 H, Calcium 7.7 L Current Medications Acetaminophen (Tylenol) 650 mg PO Q6H PRN PRN PRN Reason: Pain Score 1-10/Temp > 100.7 F Al Hydroxide/Mg Hydroxide (Mylanta Ii) 30 ml PO Q6H PRN PRN PRN Reason: Gastric Burning Albuterol Sulfate (Ventolin Aerosols) 2.5 mg INHALATION Q2H PRN PRN PRN Reason: Dyspnea, wheezing Albuterol/Ipratropium (Duoneb) 3 ml INHALATION Q4HWA.RT COUNT INCLUDES THE [facility] Last Admin: 11/04/19 06:43 Dose: 3 ml Documented by: Alprazolam (Xanax) 0.5 mg PO QHS PRN PRN PRN Reason: INSOMNIA Last Admin: 11/02/19 22:54 Dose: 0.5 mg Documented by: Citalopram Hydrobromide (Celexa) 10 mg PO DAILY COUNT INCLUDES THE [facility] Last Admin: 11/04/19 09:30 Dose: 10 mg Documented by: Ferrous Sulfate (Ferrous Sulfate) 325 mg PO DAILYCM COUNT INCLUDES THE [facility] Last Admin: 11/04/19 09:28 Dose: 325 mg Documented by: Folic Acid (Folic Acid) 1 mg PO DAILYCM COUNT INCLUDES THE [facility] Last Admin: 11/04/19 09:29 Dose: 1 mg Documented by: Guaifenesin (Mucinex) 1,200 mg PO BID COUNT INCLUDES THE [facility] Last Admin: 11/04/19 09:30 Dose: 1,200 mg Documented by: Hydralazine HCl (Apresoline Iv) 10 mg IV Q4H PRN PRN PRN Reason: SBP > 160 Sodium Chloride () 1,000 mls @ 100 mls/hr IV .Q10H COUNT INCLUDES THE [facility] Last Admin: 11/04/19 01:55 Dose: 100 mls/hr Documented by: Pantoprazole Sodium 40 mg/ (Sodium Chloride) 110 mls @ 330 mls/hr IV Q12 COUNT INCLUDES THE [facility] Last Infusion: 11/03/19 21:12 Dose: Infused Documented by: Piperacillin Sod/Tazobactam (Sod 3.375 gm/ Sodium Chloride) 50 mls @ 12.5 mls/hr IV Q8 COUNT INCLUDES THE [facility] Last Admin: 11/04/19 05:41 Dose: 12.5 mls/hr Documented by: Sodium Chloride () 250 mls @ 15 mls/hr IV .[id number] PRN PRN Reason: Saline Flush Last Infusion: 11/04/19 05:41 Dose: 0 mls/hr Documented by: Sodium Chloride () 250 mls @ 15 mls/hr IV .[id number] PRN PRN Reason: Additional IVPB Infusion Lorazepam (Ativan) 0.5 mg PO BID PRN PRN PRN Reason: ANXIETY Last Admin: 11/03/19 18:28 Dose: 0.5 mg Documented by: Magnesium Hydroxide (Milk Of Magnesia) 30 ml PO DAILY PRN PRN PRN Reason: Constipation Melatonin (Melatonin) 3 mg PO QHS PRN PRN PRN Reason: INSOMNIA Last Admin: 11/03/19 20:42 Dose: 3 mg Documented by: Nitroglycerin (Nitrostat) 0.4 mg SUBLINGUAL Q5M PRN PRN Reason: CARDIAC/CHEST PAIN Ondansetron HCl (Zofran) 4 mg IV Q8H PRN PRN PRN Reason: NAUSEA/VOMITING Prednisone () 40 mg PO DAILY@0800 COUNT INCLUDES THE [facility] Last Admin: 11/04/19 09:29 Dose: 40 mg Documented by: Prochlorperazine Edisylate (Compazine Iv) 5 mg IV Q4H PRN PRN PRN Reason: Breakthrough Nausea/Vomiting Psyllium Hydrophilic Mucilloid (Metamucil) 1 packet PO DAILY PRN PRN PRN Reason: Constipation Senna/Docusate Sodium (Senokot-S, Deya-Colace) 2 tablet PO BID PRN PRN PRN Reason: Constipation Sodium Chloride () 10 - 40 ml IV UD PRN PRN Reason: SALINE FLUSH Last Admin: 11/03/19 05:20 Dose: 10 ml Documented by: Thiamine HCl (Vitamin B1) 100 mg PO DAILY GON[facility] Last Admin: 11/04/19 09:30 Dose: 100 mg Documented by: Throat Lozenges (Cepacol Sore Throat Lozenge) 1 lozenge MUCOUS MEM Q2H PRN PRN PRN Reason: SORE THROAT Tramadol HCl (Ultram) 50 mg PO Q8H PRN PRN PRN Reason: Pain Score 4-5/10 Last Admin: 11/04/19 09:31 Dose: 50 mg Documented by: Medical Necessity - Tobacco Use Smoking Status: Former smoker Assessment/Plan All Active Problems Acute respiratory failure with hypoxia (Acute) Pneumonia (Acute) Sepsis (Acute) COPD exacerbation (Acute) Iron deficiency anemia due to chronic blood loss (Acute) Generalized weakness (Acute) Leukocytosis (Acute) Thrombocytosis (Acute) Anemia (Acute) 1. Acute on chronic anemia- Seen by hematology during recent admission September 2019 and felt to be iron deficiency anemia/ Anemia of chronic disease. Patient did undergo recent GI evaluation at [facility] where she was found to have bleeding gastric ulcer status post clipping 10/05/2019. Ulcer was suspected secondary to EtOH abuse and NSAID use. Stool for occult blood positive. Continue IV PPI. Hemoglobin stable status post 2 units PRBC. Continue iron supplementation. Hemoglobin remains stable. Continue to hold aspirin. 2. Acute hypoxic respiratory insufficiency, secondary to exacerbation of COPD and left lower lobe lingular healthcare associated pneumonia-sepsis ruled out. Chest x-ray on admission with right middle lobe scarring. Repeat chest x-ray this a.m. shows interval development of lingular pneumonia. COVID negative. Respiratory panel negative. Albuterol and DuoNeb aerosols. Continue supplement oxygen to maintain O2 at or above 90%. Transition IV Solu-Medrol to prednisone taper. Continue IV Zosyn. Encourage incentive spirometer use. Oxygen now stable on room air. 3. Leukocytosis-appears chronic. Suspect reactive leukocytosis. Previously seen by hematology as noted above for leukocytosis and thrombocytosis. 4. History of alcohol abuse-recently sober. 5. Anxiety/depression-continue home Celexa, Xanax. 6. Former tobacco use-encouraged continued cessation. 7. Severe protein calorie malnutrition-dietitian consult. DVT prophylaxis-SCDs Discharge planning: Return to SNF pending pre-cert. This patient was seen by YEN Cook under the supervision of Dr. Bruce. <Guille Bruce - Last Filed: 11/04/19 11:35> - Physical Exam Vitals/I&O's: Vital Signs Temp Pulse Resp BP Pulse Ox 98.0 F 92 20 H 112/68 92 11/04/19 09:11 11/04/19 10:53 11/04/19 10:53 11/04/19 09:11 11/04/19 10:53 Oxygen Flow Rate (L/min) 2 Oxygen Delivery Method Room Air Weight: 49 kg Body Mass Index (BMI) 16.9 Intake and Output for Last 24 Hours 11/02/19 11/03/19 11/04/19 23:59 23:59 23:59 Intake Total 3870.00 / 3870.00 4360 / 4360 1180.25 / 1180.25 Output Total 1400 / 1400 450 / 450 Balance 2470.00 / 2470.00 3910 / 3910 1180.25 / 1180.25 Microbiology Past 72 Hours 11/02/19 11:55 Stool Stool Occult Blood (YUE) - Final Occult Blood Positive 11/02/19 07:10 Urine, Clean Catch Streptococcus pneumoniae Antigen (M - Final 11/02/19 07:10 Urine, Clean Catch Legionella Antigen - Final 11/01/19 20:13 Mucosa - Nasopharyngeal Respiratory Panel (PCR) - Final Laboratory Results 11/04/19 05:50: WBC 13.2 H, RBC 3.09 L, Hgb 9.4 L, Hct 29.8 L, MCV 96.4, MCH 30.4, MCHC 31.5 L, RDW Std Deviation 68.1 H, RDW Coeff of Lennox 19.1 H, Plt Count 333, MPV 9.2, Differential Comment SCANNED 11/04/19 05:50: Sodium 136, Potassium 3.2 L, Chloride 106, Carbon Dioxide 25.0, Anion Gap 5, BUN 6 L, Creatinine 0.25 L, Estim Creat Clear Calc 173.54, Est GFR (MDRD) Af Amer 349, Est GFR (MDRD) Non-Af 289, BUN/Creatinine Ratio 23.7 H, Glucose 114 H, Calcium 7.7 L Current Medications Acetaminophen (Tylenol) 650 mg PO Q6H PRN PRN PRN Reason: Pain Score 1-10/Temp > 100.7 F Al Hydroxide/Mg Hydroxide (Mylanta Ii) 30 ml PO Q6H PRN PRN PRN Reason: Gastric Burning Albuterol Sulfate (Ventolin Aerosols) 2.5 mg INHALATION Q2H PRN PRN PRN Reason: Dyspnea, wheezing Albuterol/Ipratropium (Duoneb) 3 ml INHALATION Q4HWA.RT COUNT INCLUDES THE [facility] Last Admin: 11/04/19 10:53 Dose: 3 ml Documented by: Alprazolam (Xanax) 0.5 mg PO QHS PRN PRN PRN Reason: INSOMNIA Last Admin: 11/02/19 22:54 Dose: 0.5 mg Documented by: Citalopram Hydrobromide (Celexa) 10 mg PO DAILY COUNT INCLUDES THE [facility] Last Admin: 11/04/19 09:30 Dose: 10 mg Documented by: [facility] Last Admin: 11/04/19 09:28 Dose: 325 mg Documented by: Folic Acid ([facility] Acid) [facility] Last Admin: 11/04/19 09:29 Dose: 1 mg Documented by: Guaifenesin (Mucinex) 1,200 mg PO BID COUNT INCLUDES THE [facility] Last Admin: 11/04/19 09:30 Dose: 1,200 mg Documented by: Hydralazine HCl (Apresoline Iv) 10 mg IV Q4H PRN PRN PRN Reason: SBP > 160 Sodium Chloride () 1,000 mls @ 100 mls/hr IV .Q10H COUNT INCLUDES THE [facility] Last Admin: 11/04/19 01:55 Dose: 100 mls/hr Documented by: Pantoprazole Sodium 40 mg/ (Sodium Chloride) 110 mls @ 330 mls/hr IV Q12 COUNT INCLUDES THE [facility] Last Admin: 11/04/19 10:47 Dose: 330 mls/hr Documented by: Piperacillin Sod/Tazobactam (Sod 3.375 gm/ Sodium Chloride) 50 mls @ 12.5 mls/hr IV Q8 COUNT INCLUDES THE [facility] Last Infusion: 11/04/19 09:45 Dose: Infused Documented by: Sodium Chloride () 250 mls @ 15 mls/hr IV .[id number] PRN PRN Reason: Saline Flush Last Infusion: 11/04/19 05:41 Dose: 0 mls/hr Documented by: Sodium Chloride () 250 mls @ 15 mls/hr IV .[id number] PRN PRN Reason: Additional IVPB Infusion Lorazepam (Ativan) 0.5 mg PO BID PRN PRN PRN Reason: ANXIETY Last Admin: 11/03/19 18:28 Dose: 0.5 mg Documented by: Magnesium Hydroxide (Milk Of Magnesia) 30 ml PO DAILY PRN PRN PRN Reason: Constipation Melatonin (Melatonin) 3 mg PO QHS PRN PRN PRN Reason: INSOMNIA Last Admin: 11/03/19 20:42 Dose: 3 mg Documented by: Nitroglycerin (Nitrostat) 0.4 mg SUBLINGUAL Q5M PRN PRN Reason: CARDIAC/CHEST PAIN Ondansetron HCl (Zofran) 4 mg IV Q8H PRN PRN PRN Reason: NAUSEA/VOMITING Prednisone () 40 mg PO DAILY@0800 COUNT INCLUDES THE [facility] Last Admin: 11/04/19 09:29 Dose: 40 mg Documented by: Prochlorperazine Edisylate (Compazine Iv) 5 mg IV Q4H PRN PRN PRN Reason: Breakthrough Nausea/Vomiting Psyllium Hydrophilic Mucilloid (Metamucil) 1 packet PO DAILY PRN PRN PRN Reason: Constipation Senna/Docusate Sodium (Senokot-S, Deya-Colace) 2 tablet PO BID PRN PRN PRN Reason: Constipation Sodium Chloride () 10 - 40 ml IV UD PRN PRN Reason: SALINE FLUSH Last Admin: 11/03/19 05:20 Dose: 10 ml Documented by: Thiamine HCl (Vitamin B1) 100 mg PO DAILY COUNT INCLUDES THE [facility] Last Admin: 11/04/19 09:30 Dose: 100 mg Documented by: Throat Lozenges (Cepacol Sore Throat Lozenge) 1 lozenge MUCOUS MEM Q2H PRN PRN PRN Reason: SORE THROAT Tramadol HCl (Ultram) 50 mg PO Q8H PRN PRN PRN Reason: Pain Score 4-5/10 Last Admin: 11/04/19 09:31 Dose: 50 mg Documented by: Assessment/Plan This patient was seen in conjunction with DEXTER CookC . I have independently interviewed and examined the patient and reviewed pertinent historical, laboratory, and other data. Please refer to YEN Cook note for details of this patient's presentation, findings, and recommendations. I have reviewed YEN Cook note and concur with documented findings. In brief, patient is a 64-year-old lady with recent prolonged hospitalization at [facility] currently at an extended care facility brought to the ED with abnormal labs. Patient was found to be anemic with hemoglobin of 7.2 admitted to a monitored bed for transfusion. 11/03/2019: Patient seen clinical condition remains fairly stable. Diagnostic data testing done for hypokalemia and hyponatremia 11/03/2019 patient seen; awaiting insurance preset prior to transfer back to the intermediate facility Physical Examination: GENERAL: cooperative HEENT: Atraumatic; EYES; Anicteric, Normal Conjunctiva NECK; supple, normal thyroid, RESPIRATORY: Diminished to auscultation CARDIOVASCULAR: Regular S1 S2, GI: soft, normoactive bowel sounds, : No Renal angle tenderness; NEURO: Awake; no lateralizing signs. SKIN: No Rash PSYCH; Flat affect Assessment: 1. Symptomatic anemia 2. Sepsis ruled out 3. Pneumonia ruled out 4. Function secondary to combination of COPD and anemia 5. COPD 6. Severe protein calorie malnutrition as evidenced by significant weight loss, low BMI, muscle wasting and decreased energy level 7. Leukocytosis 8. Chronic alcohol abuse 9. Depression with anxiety 10. Hypokalemia 11. Hyponatremia Recommendations: 1. I have discussed the results of my overview and impressions with the patient 2. Options for management were reviewed Inpatient E&M: [id number] Subs Hosp L2
[2019-11-04] MEDS: LORazepam 0.5 MG Tablet PO (18:35)
[2019-11-04] MEDS: MELATONIN 3 MG TABLET PO (21:07)
[2019-11-04] MEDS: Menthol/Lanolin/Calamine/Znox 113 GM Tube 1 APPLIC TOPICAL (21:08)
[2019-11-04] MEDS: ALPRAZolam 0.5 MG Tablet PO (22:27)
[2019-11-05] VITALS (11 sets, daily range): BP systolic 109–130; BP diastolic 60–76; PULSE 81–99; RESP 16–20; TEMP 36.6–36.9; O2SAT 93–99
[2019-11-05] MEDS: LORazepam 0.5 MG Tablet PO ×2 (02:09→13:41)
[2019-11-05] MEDS: 0.9% Normal Saline 1,000 ML 100 ML IV ×2 (05:32→17:00)
[2019-11-05 06:29] LABS: Absolute Lymphocyte Count 1.33 X10^3/uL (0.83-4.51); Absolute Neutrophil Count 6.8 X10^3/uL (2.0-7.7); Basophil# 0.01 X10^3/uL; Basophil% 0.1 % (0-1); Eosinophil# 0.03 X10^3/uL; Eosinophils% 0.3 % (0-5); Hematocrit 32.8 % (37-47); Hemoglobin 10.5 g/dL (12.0-15.0); Lymphocyte # 1.33 X10^3/ul (4.0); Lymphocyte % 14.6 % (19-41); Mean Corpuscular Hgb 30.6 pg (27.0-32.0); Mean Corpuscular Volume 95.6 fL (81-99); Mean Platelet Vol. 9.1 fl (6.2-12.0); Monocyte# 0.87 X10^3/uL; Monocyte% 9.6 % (0-10); NRBC Flagged by Analyzer 0 % (0-5); Neutrophil # 6.81 X10^3/uL (2.7-7.7); POSITIVE MORPHOLOGY YES; Platelet Count 393 K/mm3 (150-450); RBC Distribution Width CV 18.6 % (11.6-14.6); RBC Distribution Width SD 65.3 fl (35.1-43.9); Red Blood Count 3.43 M/mm3 (4.2-5.4); White Blood Count 9.1 K/mm3 (4.4-11.0)
[2019-11-05 06:36] LABS: Differential Indicated SCAN CRITERIA MET
[2019-11-05 06:48] LABS: Anion Gap 5 (5-15); BUN 5 mg/dL (7-18); BUN/Creat Ratio 19.4 RATIO (10-20); Calcium,Total 7.8 mg/dL (8.5-10.1); Chloride 105 mmol/L (98-107); Creatinine, Serum 0.26 mg/dL (0.55-1.02); EST Glomerular Filtration Rate 282 mL/min (>60); Est Glom Filt Rate - Afr Amer 342 mL/min (>60); Estimated Creatinine Clearance 166.87 ml/min; Glucose 95 mg/dL (74-106); Potassium 3.2 mmol/L (3.5-5.1); Sodium Level 137 mmol/L (136-145)
[2019-11-05 06:56] LABS: Polychromasia 1+
[2019-11-05] MEDS: Ipratropium/Albuterol Sulfate 3 ML AMPUL.NEB INHALATION ×3 (07:41→18:58)
[2019-11-05] MEDS: Ferrous Sulfate 325 MG Tablet PO (09:48)
[2019-11-05] MEDS: Folic Acid 1 MG Tablet PO (09:48)
[2019-11-05] MEDS: predniSONE 20 MG Tablet 40 MG PO (09:48)
[2019-11-05] MEDS: Citalopram 10 MG Tablet PO (09:49)
[2019-11-05] MEDS: traMADol 50 MG Tablet PO ×2 (09:50→20:03)
[2019-11-05] MEDS: guaiFENesin 1,200 MG Tablet 1200 MG PO ×2 (09:50→22:02)
--- NOTE | 2019-11-05 11:38 | CASEMGMT ---
DEVIKA left a message for Lula inquiring if she has heard anything from insurance. DEVIKA also faxed her updated PT note and progress note. Krista ZHANG MSW
--- NOTE | 2019-11-05 11:52 | PCM.EXTCARCO ---
- Diet 11/02/19 08:47 Diet: Regular - General Food consistency:: Regular Liquid Consistency:: Regular/Thin Is pt able to select menu?: Yes - Routine Orders/Code Status Enema Type: Fleetz Enema Frequency: Daily PRN Suppository Type: Dulcolax 10mg Suppository Frequency: Daily PRN O2 Liters per Minute: 2 O2 Frequency: PRN Keep PO Greater than or Equal to (%): 90 Routine Lab Work: - - Repeat BMP, CBC in 2 days then weekly CBC/BMP. Code Status: Full Code - Wound(s) BLLE Wound Type: scattered scabs COCCYX Wound Type: Pressure Injury - Suggestions for Active Care Change Position every (hours): 2 Times a day to sit in chair: 3 - Therapies Physical Therapy: Eval and Treat Occupational Therapy: Eval and Treat - Problem/Diagnosis (1) Acute respiratory failure with hypoxia Status: Acute Current Visit: Yes (2) COPD exacerbation Status: Acute Current Visit: Yes (3) Iron deficiency anemia due to chronic blood loss Status: Acute Current Visit: Yes (4) Anxiety and depression Status: Chronic Current Visit: No (5) Alcohol abuse Status: Chronic Current Visit: No (6) Severe protein-calorie malnutrition Status: Chronic Current Visit: No - Allergies/Procedures Done in Hospital Allergies/Adverse Reactions: Allergies No Known Allergies Allergy (Verified 10/21/19 09:54) Procedures: None - Type of Care/Length of Stay Estimated LOS: Convalescent Care Less Than 30 days Type of Care Needed: Skilled Rehab Potential: Fair Prognosis: Fair - Additional Orders/Day of Discharge H&P will serve as current which was dated: 11/01/19 Day of Discharge: 11/05/19 - Dietary and Speech Recommendations Dietitian Recommendations/Changes: Rec continue liberal regular diet d/t s/s of malnutrition. Will provide shereen CIB w/ meals for increased nutrition if consumed - Follow Up Care Primary Care Physician: Zuly Doshi NP, [employer] [NON-STAFF] - Please follow up with your Primary Care Physician in: 1 Week
--- NOTE | 2019-11-05 12:15 | CASEMGMT ---
SW received a call from Lula and she has not heard from insurance. She did call them this am.
[2019-11-05] MEDS: Thiamine Hydrochloride 100 MG Tablet PO (12:16)
--- NOTE | 2019-11-05 12:37 | PCM.DC.SUM ---
Discharge Date and Diagnosis Date of Admission: 11/01/19 Date of Discharge: 11/05/19 - Primary Discharge Diagnosis Acute Problems: Active Problems 1. Acute on chronic anemia, secondary to recent bleeding gastric ulcer status post clipping 10/05/2019 in the context of chronic iron deficiency anemia 2. Acute hypoxic respiratory insufficiency, secondary to exacerbation of COPD and left lower lobe lingular healthcare associated pneumonia-sepsis ruled out. 3. Leukocytosis-appears chronic. 4. History of alcohol abuse 5. Anxiety/depression 6. Former tobacco use 7. Severe protein calorie malnutrition - Secondary Discharge Diagnosis Chronic Problems: Chronic Problems COPD (chronic obstructive pulmonary disease) (Chronic) Asthma exacerbation in COPD (Chronic) Anxiety and depression (Chronic) Alcohol abuse (Chronic) Severe protein-calorie malnutrition (Chronic) Tobacco use (Chronic) Hospital Course and Treatment Imaging Results: Diagnostic Data Chest X-Ray 11/03/19 05:55 IMPRESSION: Interval development of lingular pneumonia. Electronically Signed: Van Beck MD at 6:35 EDT Tel , Service support , Operations: None Procedures: None Summary of Care Provided: The patient is a 64 year old F admitted 11/01/2019 due to cough, recent pneumonia and low hemoglobin. 1. Acute on chronic anemia- Seen by hematology during recent admission September 2019 and felt to be iron deficiency anemia/ Anemia of chronic disease. Patient did undergo recent GI evaluation at [facility] where she was found to have bleeding gastric ulcer status post clipping 10/05/2019. Ulcer was suspected secondary to EtOH abuse and NSAID use. Stool for occult blood positive. Hemoglobin stable status post 2 units PRBC. Continue iron supplementation. Hemoglobin remains stable. Continue to hold aspirin. Continue twice daily PPI at discharge. Weekly CBC at SNF. 2. Acute hypoxic respiratory insufficiency, secondary to exacerbation of COPD and left lower lobe lingular healthcare associated pneumonia-sepsis ruled out. Chest x-ray on admission with right middle lobe scarring. Repeat chest x-ray this a.m. shows interval development of lingular pneumonia. COVID negative. Respiratory panel negative. Albuterol and DuoNeb aerosols. Continue supplement oxygen to maintain O2 at or above 90%. Transition IV Solu-Medrol to prednisone taper. IV Zosyn during admission with transition to Augmentin to complete course. Encourage incentive spirometer use. Oxygen now stable on room air. 3. Leukocytosis-appears chronic. Suspect reactive leukocytosis. Previously seen by hematology as noted above for leukocytosis and thrombocytosis. 4. History of alcohol abuse-recently sober due to hospital/SNF admission. [employer] consulted during admission and patient did not want to participate with treatment or outpatient follow-up. 5. Anxiety/depression-continue home Celexa, Xanax. 6. Former tobacco use-encouraged continued cessation. 7. Severe protein calorie malnutrition-dietitian consult. General: Alert, Oriented x3, Cooperative HEENT: Atraumatic, PERRLA, EOMI, Normocephalic Oral: Dry Mucosa Neck: Supple, No JVD, Negative Carotid Bruits Lungs: Clear to auscultation, Diminished Cardiovascular: Regular rate, No murmurs Abdomen: Bowel Sounds Present, Soft, Non Tender, Non-Distended Extremities: No clubbing, No cyanosis, No edema, Capillary Refill Less than 3 Seconds Skin: No rashes, No breakdown Musculoskeletal: No Tenderness to Palpation of Joints or Extremities Neurological: Cranial nerves II-XII grossly intact, Neuro grossly intact Psych/Mental Status: Normal Affect, Appropriate Patient seen and examined prior to discharge. Physical assessment as noted above. Patient is stable for discharge with follow up recommendations as noted above. This patient was seen by YEN Cook under the supervision of Dr. Abarca. - Physical Exam Vitals/I&O's: Vital Signs Temp Pulse Resp BP Pulse Ox 98.0 F 95 20 H 109/62 99 11/05/19 09:25 11/05/19 10:54 11/05/19 10:54 11/05/19 09:25 11/05/19 09:25 Oxygen Flow Rate (L/min) 2 Oxygen Delivery Method Room Air Weight: 108 lb 0.424 oz Body Mass Index (BMI) 16.9 Intake and Output for Last 24 Hours 11/03/19 11/04/19 11/05/19 23:59 23:59 23:59 Intake Total 4360 / 4360 4193.59 / 4413.59 1266.88 / 1266.88 Output Total 450 / 450 150 / 150 Balance 3910 / 3910 4193.59 / 4413.59 1116.88 / 1116.88 Microbiology Past 72 Hours 11/02/19 11:55 Stool Stool Occult Blood (YUE) - Final Occult Blood Positive 11/02/19 07:10 Urine, Clean Catch Streptococcus pneumoniae Antigen (M - Final 11/02/19 07:10 Urine, Clean Catch Legionella Antigen - Final Laboratory Results 11/05/19 05:45: WBC 9.1, RBC 3.43 L, Hgb 10.5 L, Hct 32.8 L, MCV 95.6, MCH 30.6, MCHC 32.0, RDW Std Deviation 65.3 H, RDW Coeff of Lennox 18.6 H, Plt Count 393, MPV 9.1, Immature Gran % (Auto) 0.400, Neut % (Auto) 75.0 H, Lymph % (Auto) 14.6 L, [place] % (Auto) 9.6, Eos % (Auto) 0.3, Baso % (Auto) 0.1, Absolute Neuts (auto) 6.8, Absolute Lymphs (auto) 1.33, Nucleated RBC % 0, Polychromasia 1+ 11/05/19 05:45: Sodium 137, Potassium 3.2 L, Chloride 105, Carbon Dioxide 27.0, Anion Gap 5, BUN 5 L, Creatinine 0.26 L, Estim Creat Clear Calc 166.87, Est GFR (MDRD) Af Amer 342, Est GFR (MDRD) Non-Af 282, BUN/Creatinine Ratio 19.4, Glucose 95, Calcium 7.8 L Current Medications Acetaminophen (Tylenol) 650 mg PO Q6H PRN PRN PRN Reason: Pain Score 1-10/Temp > 100.7 F Al Hydroxide/Mg Hydroxide (Mylanta Ii) 30 ml PO Q6H PRN PRN PRN Reason: Gastric Burning Albuterol Sulfate (Ventolin Aerosols) 2.5 mg INHALATION Q2H PRN PRN PRN Reason: Dyspnea, wheezing Albuterol/Ipratropium (Duoneb) 3 ml INHALATION Q4HWA.RT [facility] Last Admin: 11/05/19 10:53 Dose: 3 ml Documented by: Alprazolam (Xanax) 0.5 mg PO QHS PRN PRN PRN Reason: INSOMNIA Last Admin: 11/04/19 22:27 Dose: 0.5 mg Documented by: Amoxicillin/Clavulanate Pot[facility] ([facility]) [facility] Calamine/Phenol (Calmoseptine Ointment) 1 applic TOPICAL TID [facility]; Protocol Last Admin: 11/05/19 00:26 Dose: Not Given Documented by: Citalopram Hydrobromide (Celexa) 10 mg PO DAILY [facility] Last Admin: 11/05/19 09:49 Dose: 10 mg Documented by: Ferrous Sulfate (Ferrous Sulfate) [facility] Last Admin: 11/05/19 09:48 Dose: 325 mg Documented by: Folic Acid (Folic Acid) [facility] Last Admin: 11/05/19 09:48 Dose: 1 mg Documented by: Guaifenesin (Mucinex) 1,200 mg PO BID [facility] Last Admin: 11/05/19 09:50 Dose: 1,200 mg Documented by: Hydralazine HCl (Apresoline Iv) 10 mg IV Q4H PRN PRN PRN Reason: SBP > 160 Sodium Chloride () 1,000 mls @ 100 mls/hr IV .Q10H [facility] Last Admin: 11/05/19 05:32 Dose: 100 mls/hr Documented by: Sodium Chloride () 250 mls @ 15 mls/hr IV .[id number] PRN PRN Reason: Saline Flush Last Infusion: 11/04/19 05:41 Dose: 0 mls/hr Documented by: Sodium Chloride () 250 mls @ 15 mls/hr IV .[id number] PRN PRN Reason: Additional IVPB Infusion Lorazepam (Ativan) 0.5 mg PO BID PRN PRN PRN Reason: ANXIETY Last Admin: 11/05/19 02:09 Dose: 0.5 mg Documented by: Magnesium Hydroxide (Milk Of Magnesia) 30 ml PO DAILY PRN PRN PRN Reason: Constipation Melatonin (Melatonin) 3 mg PO QHS PRN PRN PRN Reason: INSOMNIA Last Admin: 11/04/19 21:07 Dose: 3 mg Documented by: Nitroglycerin (Nitrostat) 0.4 mg SUBLINGUAL Q5M PRN PRN Reason: CARDIAC/CHEST PAIN Ondansetron HCl (Zofran) 4 mg IV Q8H PRN PRN PRN Reason: NAUSEA/VOMITING Pantoprazole Sodium (Protonix) 40 mg PO BID [facility] Potassium Chloride (K-Dur) 40 meq PO DAILYCM [facility] Last Admin: 11/05/19 09:49 Dose: 40 meq Documented by: Prednisone () 40 mg PO DAILY@0800 [facility] Last Admin: 11/05/19 09:48 Dose: 40 mg Documented by: Prochlorperazine Edisylate (Compazine Iv) 5 mg IV Q4H PRN PRN PRN Reason: Breakthrough Nausea/Vomiting Psyllium Hydrophilic Mucilloid (Metamucil) 1 packet PO DAILY PRN PRN PRN Reason: Constipation Senna/Docusate Sodium (Senokot-S, Deya-Colace) 2 tablet PO BID PRN PRN PRN Reason: Constipation Sodium Chloride () 10 - 40 ml IV UD PRN PRN Reason: SALINE FLUSH Last Admin: 11/03/19 05:20 Dose: 10 ml Documented by: Thiamine HCl (Vitamin B1) 100 mg PO DAILY [facility] Last Admin: 11/05/19 12:16 Dose: 100 mg Documented by: Throat Lozenges (Cepacol Sore Throat Lozenge) 1 lozenge MUCOUS MEM Q2H PRN PRN PRN Reason: SORE THROAT Tramadol HCl (Ultram) 50 mg PO Q8H PRN PRN PRN Reason: Pain Score 4-5/10 Last Admin: 11/05/19 09:50 Dose: 50 mg Documented by: Home Medications: Medications to take at Discharge Albuterol Sulfate [Albuterol Sulfate HFA] 2 puff INHALATION Q4H PRN PRN 10/02/19 Folic Acid 1 mg PO DAILY 10/21/19 ALPRAZolam [Xanax] 0.5 mg PO QHS PRN PRN #14 tab 10/23/19 Citalopram [Celexa] 10 mg PO DAILY 10/29/19 Thiamine HCl [B-1] 100 mg PO DAILY 10/29/19 Acetaminophen [Tylenol Extra Strength] 1,000 mg PO Q8H PRN PRN 11/01/19 Albuterol Aerosols [Ventolin Aerosols] 2.5 mg INHALATION Q4HWA.RT 11/01/19 Ferrous Sulfate [Ferosul] 325 mg PO DAILY 11/01/19 Lorazepam [Ativan] 0.5 mg PO BID PRN PRN 11/01/19 Tramadol HCl [Ultram] 50 mg PO Q8H PRN PRN 11/01/19 Amox/Clavulanate Tablet [Augmentin Tablet] 875 mg PO BID 4 Days tab 11/05/19 Guaifenesin [Mucinex] 1,200 mg PO BID tab 11/05/19 Pantoprazole Sodium [Protonix] 40 mg PO BID tab 11/05/19 Potassium Chloride [K-Dur] 40 meq PO DAILYCM tab 11/05/19 predniSONE tablet See Taper PO DAILY@0800 tab 11/05/19 Primary Care Physician: Zuly Doshi NP, [employer] TECHNICIAN-C [NON-STAFF] - Please follow up with your Primary Care Physician in: 1 Week Disposition: [facility] facility Minutes spent on discharge:: 35 Patient Condition:: Stable Medical Necessity - Tobacco Use Smoking Status: Former smoker Meaningful Use Info Meaningful Use Diagnoses (Choose all that apply): None applicable
--- NOTE | 2019-11-05 12:43 | PCM.PROGNOTE ---
<Chris [employer] - Last Filed: 11/05/19 12:46> Subjective: Patient seen and examined. Denies shortness of breath. Hemoglobin remained stable. Awaiting SNF approval. - Physical Exam Vitals/I&O's: Vital Signs Temp Pulse Resp BP Pulse Ox 98.0 F 95 20 H 109/62 99 11/05/19 09:25 11/05/19 10:54 11/05/19 10:54 11/05/19 09:25 11/05/19 09:25 Oxygen Flow Rate (L/min) 2 Oxygen Delivery Method Room Air Weight: 108 lb 0.424 oz Body Mass Index (BMI) 16.9 Intake and Output for Last 24 Hours 11/03/19 11/04/19 11/05/19 23:59 23:59 23:59 Intake Total 4360 / 4360 4193.59 / 4413.59 1266.88 / 1266.88 Output Total 450 / 450 150 / 150 Balance 3910 / 3910 4193.59 / 4413.59 1116.88 / 1116.88 General: Alert, Oriented x3, Cooperative HEENT: Atraumatic, PERRLA, EOMI, Normocephalic Oral: Dry Mucosa Neck: Supple, No JVD, Negative Carotid Bruits Lungs: Clear to auscultation, Diminished Cardiovascular: Regular rate, No murmurs Abdomen: Bowel Sounds Present, Soft, Non Tender, Non-Distended Extremities: No clubbing, No cyanosis, No edema, Capillary Refill Less than 3 Seconds Skin: No rashes, No breakdown Musculoskeletal: No Tenderness to Palpation of Joints or Extremities, Cachexia, Muscle Wasting Neurological: Cranial nerves II-XII grossly intact, Neuro grossly intact Psych/Mental Status: Normal Affect, Appropriate Microbiology Past 72 Hours 11/02/19 11:55 Stool Stool Occult Blood (YUE) - Final Occult Blood Positive 11/02/19 07:10 Urine, Clean Catch Streptococcus pneumoniae Antigen (M - Final 11/02/19 07:10 Urine, Clean Catch Legionella Antigen - Final Laboratory Results 11/05/19 05:45: WBC 9.1, RBC 3.43 L, Hgb 10.5 L, Hct 32.8 L, MCV 95.6, MCH 30.6, MCHC 32.0, RDW Std Deviation 65.3 H, RDW Coeff of Lennox 18.6 H, Plt Count 393, MPV 9.1, Immature Gran % (Auto) 0.400, Neut % (Auto) 75.0 H, Lymph % (Auto) 14.6 L, [place] % (Auto) 9.6, Eos % (Auto) 0.3, Baso % (Auto) 0.1, Absolute Neuts (auto) 6.8, Absolute Lymphs (auto) 1.33, Nucleated RBC % 0, Polychromasia 1+ 11/05/19 05:45: Sodium 137, Potassium 3.2 L, Chloride 105, Carbon Dioxide 27.0, Anion Gap 5, BUN 5 L, Creatinine 0.26 L, Estim Creat Clear Calc 166.87, Est GFR (MDRD) Af Amer 342, Est GFR (MDRD) Non-Af 282, BUN/Creatinine Ratio 19.4, Glucose 95, Calcium 7.8 L Current Medications Acetaminophen (Tylenol) 650 mg PO Q6H PRN PRN PRN Reason: Pain Score 1-10/Temp > 100.7 F Al Hydroxide/Mg Hydroxide (Mylanta Ii) 30 ml PO Q6H PRN PRN PRN Reason: Gastric Burning Albuterol Sulfate (Ventolin Aerosols) 2.5 mg INHALATION Q2H PRN PRN PRN Reason: Dyspnea, wheezing Albuterol/Ipratropium (Duoneb) 3 ml INHALATION Q4HWA.RT [facility] Last Admin: 11/05/19 10:53 Dose: 3 ml Documented by: Alprazolam (Xanax) 0.5 mg PO QHS PRN PRN PRN Reason: INSOMNIA Last Admin: 11/04/19 22:27 Dose: 0.5 mg Documented by: Amoxicillin/Clavulanate [facility] ([facility]) [facility] Calamine/Phenol (Calmoseptine Ointment) 1 applic TOPICAL TID [facility]; Protocol Last Admin: 11/05/19 00:26 Dose: Not Given Documented by: Citalopram Hydrobromide (Celexa) 10 mg PO DAILY [facility] Last Admin: 11/05/19 09:49 Dose: 10 mg Documented by: Ferrous Sulfate (Ferrous Sulfate) [facility] Last Admin: 11/05/19 09:48 Dose: 325 mg Documented by: Folic Acid (Folic Acid) [facility] Last Admin: 11/05/19 09:48 Dose: 1 mg Documented by: Guaifenesin (Mucinex) 1,200 mg PO BID [facility] Last Admin: 11/05/19 09:50 Dose: 1,200 mg Documented by: Hydralazine HCl (Apresoline Iv) 10 mg IV Q4H PRN PRN PRN Reason: SBP > 160 Sodium Chloride () 1,000 mls @ 100 mls/hr IV .Q10H [facility] Last Admin: 11/05/19 05:32 Dose: 100 mls/hr Documented by: Sodium Chloride () 250 mls @ 15 mls/hr IV .[id number] PRN PRN Reason: Saline Flush Last Infusion: 11/04/19 05:41 Dose: 0 mls/hr Documented by: Sodium Chloride () 250 mls @ 15 mls/hr IV .[id number] PRN PRN Reason: Additional IVPB Infusion Lorazepam (Ativan) 0.5 mg PO BID PRN PRN PRN Reason: ANXIETY Last Admin: 11/05/19 02:09 Dose: 0.5 mg Documented by: Magnesium Hydroxide (Milk Of Magnesia) 30 ml PO DAILY PRN PRN PRN Reason: Constipation Melatonin (Melatonin) 3 mg PO QHS PRN PRN PRN Reason: INSOMNIA Last Admin: 11/04/19 21:07 Dose: 3 mg Documented by: Nitroglycerin (Nitrostat) 0.4 mg SUBLINGUAL Q5M PRN PRN Reason: CARDIAC/CHEST PAIN Ondansetron HCl (Zofran) 4 mg IV Q8H PRN PRN PRN Reason: NAUSEA/VOMITING Pantoprazole Sodium (Protonix) 40 mg PO BID [facility] Potassium Chloride (K-Dur) [facility] Last Admin: 11/05/19 09:49 Dose: 40 meq Documented by: Prednisone () 40 mg PO DAILY@0800 [facility] Last Admin: 11/05/19 09:48 Dose: 40 mg Documented by: Prochlorperazine Edisylate (Compazine Iv) 5 mg IV Q4H PRN PRN PRN Reason: Breakthrough Nausea/Vomiting Psyllium Hydrophilic Mucilloid (Metamucil) 1 packet PO DAILY PRN PRN PRN Reason: Constipation Senna/Docusate Sodium (Senokot-S, Deya-Colace) 2 tablet PO BID PRN PRN PRN Reason: Constipation Sodium Chloride () 10 - 40 ml IV UD PRN PRN Reason: SALINE FLUSH Last Admin: 11/03/19 05:20 Dose: 10 ml Documented by: Thiamine HCl (Vitamin B1) 100 mg PO DAILY [facility] Last Admin: 11/05/19 12:16 Dose: 100 mg Documented by: Throat Lozenges (Cepacol Sore Throat Lozenge) 1 lozenge MUCOUS MEM Q2H PRN PRN PRN Reason: SORE THROAT Tramadol HCl (Ultram) 50 mg PO Q8H PRN PRN PRN Reason: Pain Score 4-5/10 Last Admin: 11/05/19 09:50 Dose: 50 mg Documented by: Medical Necessity - Tobacco Use Smoking Status: Former smoker Assessment/Plan All Active Problems Acute respiratory failure with hypoxia (Acute) Pneumonia (Acute) Sepsis (Acute) COPD exacerbation (Acute) Iron deficiency anemia due to chronic blood loss (Acute) Generalized weakness (Acute) Leukocytosis (Acute) Thrombocytosis (Acute) Anemia (Acute) 1. Acute on chronic anemia- Seen by hematology during recent admission September 2019 and felt to be iron deficiency anemia/ Anemia of chronic disease. Patient did undergo recent GI evaluation at [facility] where she was found to have bleeding gastric ulcer status post clipping 10/05/2019. Ulcer was suspected secondary to EtOH abuse and NSAID use. Stool for occult blood positive. Continue BID PPI. Hemoglobin stable status post 2 units PRBC. Continue iron supplementation. Hemoglobin remains stable. Continue to hold aspirin. 2. Acute hypoxic respiratory insufficiency, secondary to exacerbation of COPD and left lower lobe lingular healthcare associated pneumonia-sepsis ruled out. Chest x-ray on admission with right middle lobe scarring. Repeat chest x-ray this a.m. shows interval development of lingular pneumonia. COVID negative. Respiratory panel negative. Albuterol and DuoNeb aerosols. Continue supplement oxygen to maintain O2 at or above 90%. Transition IV Solu-Medrol to prednisone taper. Transition from IV Zosyn to augmentin. Encourage incentive spirometer use. Oxygen now stable on room air. 3. Leukocytosis-appears chronic. Suspect reactive leukocytosis. Previously seen by hematology as noted above for leukocytosis and thrombocytosis. 4. History of alcohol abuse-recently sober. 5. Anxiety/depression-continue home Celexa, Xanax. 6. Former tobacco use-encouraged continued cessation. 7. Severe protein calorie malnutrition-dietitian consult. DVT prophylaxis-SCDs Discharge planning: Return to SNF pending pre-cert. This patient was seen by YEN Cook under the supervision of Dr. Abarca. <Ronny Abarca - Last Filed: 11/05/19 14:24> Subjective: No shortness of breath - Physical Exam Vitals/I&O's: Vital Signs Temp Pulse Resp BP Pulse Ox 36.7 C 95 20 H 109/62 99 11/05/19 09:25 11/05/19 10:54 11/05/19 10:54 11/05/19 09:25 11/05/19 09:25 Oxygen Flow Rate (L/min) 2 Oxygen Delivery Method Room Air Weight: 49 kg Body Mass Index (BMI) 16.9 Intake and Output for Last 24 Hours 11/03/19 11/04/19 11/05/19 23:59 23:59 23:59 Intake Total 4360 / 4360 4193.59 / 4413.59 1266.88 / 1266.88 Output Total 450 / 450 150 / 150 Balance 3910 / 3910 4193.59 / 4413.59 1116.88 / 1116.88 General: Alert, Cooperative HEENT: Atraumatic, Normocephalic Lungs: Clear to auscultation, Normal air movement, No rhonchi, No wheeze Cardiovascular: Regular rate, No murmurs Abdomen: Bowel Sounds Present, Soft, Non Tender, Non-Distended Extremities: No edema, No Calf Tenderness Skin: No rashes, No breakdown Psych/Mental Status: Normal Affect, Appropriate Microbiology Past 72 Hours 11/02/19 11:55 Stool Stool Occult Blood (YUE) - Final Occult Blood Positive Laboratory Results 11/05/19 05:45: WBC 9.1, RBC 3.43 L, Hgb 10.5 L, Hct 32.8 L, MCV 95.6, MCH 30.6, MCHC 32.0, RDW Std Deviation 65.3 H, RDW Coeff of Lennox 18.6 H, Plt Count 393, MPV 9.1, Immature Gran % (Auto) 0.400, Neut % (Auto) 75.0 H, Lymph % (Auto) 14.6 L, [place] % (Auto) 9.6, Eos % (Auto) 0.3, Baso % (Auto) 0.1, Absolute Neuts (auto) 6.8, Absolute Lymphs (auto) 1.33, Nucleated RBC % 0, Polychromasia 1+ 11/05/19 05:45: Sodium 137, Potassium 3.2 L, Chloride 105, Carbon Dioxide 27.0, Anion Gap 5, BUN 5 L, Creatinine 0.26 L, Estim Creat Clear Calc 166.87, Est GFR (MDRD) Af Amer 342, Est GFR (MDRD) Non-Af 282, BUN/Creatinine Ratio 19.4, Glucose 95, Calcium 7.8 L Current Medications Acetaminophen (Tylenol) 650 mg PO Q6H PRN PRN PRN Reason: Pain Score 1-10/Temp > 100.7 F Al Hydroxide/Mg Hydroxide (Mylanta Ii) 30 ml PO Q6H PRN PRN PRN Reason: Gastric Burning Albuterol Sulfate (Ventolin Aerosols) 2.5 mg INHALATION Q2H PRN PRN PRN Reason: Dyspnea, wheezing Albuterol/Ipratropium (Duoneb) 3 ml INHALATION Q4HWA.RT [facility] Last Admin: 11/05/19 10:53 Dose: 3 ml Documented by: Alprazolam (Xanax) 0.5 mg PO QHS PRN PRN PRN Reason: INSOMNIA Last Admin: 11/04/19 22:27 Dose: 0.5 mg Documented by: Amoxicillin/Clavulanate Potassium ([facility]in [facility]) [facility] Calamine/Phenol (Calmoseptine Ointment) 1 applic TOPICAL TID [facility]; Protocol Last Admin: 11/05/19 13:43 Dose: Not Given Documented by: Citalopram Hydrobromide (Celexa) 10 mg PO DAILY [facility] Last Admin: 11/05/19 09:49 Dose: 10 mg Documented by: Ferrous Sulfate (Ferrous Sulfate) [facility] Last Admin: 11/05/19 09:48 Dose: 325 mg Documented by: Folic Acid (Folic Acid) [facility] Last Admin: 11/05/19 09:48 Dose: 1 mg Documented by: Guaifenesin (Mucinex) 1,200 mg PO BID [facility] Last Admin: 11/05/19 09:50 Dose: 1,200 mg Documented by: Hydralazine HCl (Apresoline Iv) 10 mg IV Q4H PRN PRN PRN Reason: SBP > 160 Sodium Chloride () 1,000 mls @ 100 mls/hr IV .Q10H [facility] Last Admin: 11/05/19 05:32 Dose: 100 mls/hr Documented by: Sodium Chloride () 250 mls @ 15 mls/hr IV .[id number] PRN PRN Reason: Saline Flush Last Infusion: 11/04/19 05:41 Dose: 0 mls/hr Documented by: Sodium Chloride () 250 mls @ 15 mls/hr IV .[id number] PRN PRN Reason: Additional IVPB Infusion Lorazepam (Ativan) 0.5 mg PO BID PRN PRN PRN Reason: ANXIETY Last Admin: 11/05/19 13:41 Dose: 0.5 mg Documented by: Magnesium Hydroxide (Milk Of Magnesia) 30 ml PO DAILY PRN PRN PRN Reason: Constipation Melatonin (Melatonin) 3 mg PO QHS PRN PRN PRN Reason: INSOMNIA Last Admin: 11/04/19 21:07 Dose: 3 mg Documented by: Nitroglycerin (Nitrostat) 0.4 mg SUBLINGUAL Q5M PRN PRN Reason: CARDIAC/CHEST PAIN Ondansetron HCl (Zofran) 4 mg IV Q8H PRN PRN PRN Reason: NAUSEA/VOMITING Pantoprazole Sodium (Protonix) 40 mg PO BID [facility] Potassium Chloride (K-Dur) 40 meq PO DAILYCM [facility] Last Admin: 11/05/19 09:49 Dose: 40 meq Documented by: Prednisone () 40 mg PO DAILY@0800 [facility] Last Admin: 11/05/19 09:48 Dose: 40 mg Documented by: Prochlorperazine Edisylate (Compazine Iv) 5 mg IV Q4H PRN PRN PRN Reason: Breakthrough Nausea/Vomiting Psyllium Hydrophilic Mucilloid (Metamucil) 1 packet PO DAILY PRN PRN PRN Reason: Constipation Senna/Docusate Sodium (Senokot-S, Deya-Colace) 2 tablet PO BID PRN PRN PRN Reason: Constipation Sodium Chloride () 10 - 40 ml IV UD PRN PRN Reason: SALINE FLUSH Last Admin: 11/03/19 05:20 Dose: 10 ml Documented by: Thiamine HCl (Vitamin B1) 100 mg PO DAILY [facility] Last Admin: 11/05/19 12:16 Dose: 100 mg Documented by: Throat Lozenges (Cepacol Sore Throat Lozenge) 1 lozenge MUCOUS MEM Q2H PRN PRN PRN Reason: SORE THROAT Tramadol HCl (Ultram) 50 mg PO Q8H PRN PRN PRN Reason: Pain Score 4-5/10 Last Admin: 11/05/19 09:50 Dose: 50 mg Documented by: Assessment/Plan Patient seen and examined independently. Data reviewed. I agree with the above note by the nurse practitioner. 1. Acute blood loss anemia: Hemoglobin was 7.2 on admission and has improved to 10.5 today. This is after 2 units of packed red blood cells. Last month had work-up showing low iron and abnormally normal ferritin level. Iron deficiency anemia. Continue with ferrous sulfate. Aspirin on hold. 2. Acute hypoxic respiratory insufficiency: Multifactorial secondary to exacerbation of COPD as well as pneumonia. Currently on room air. 3. Acute COPD exacerbation: Bronchodilators plus prednisone. 5 days of prednisone then stop. 4. Debility: Awaiting on precertification. Once that is obtained, patient can be discharged. Inpatient E&M: [id number] [facility] L[facility]
--- NOTE | 2019-11-05 13:44 | PHA.DC.MR ---
Pharmacy Service has performed discharge medication reconciliation for this patient upon transfer to [facility]. The patient's discharge medication list was reviewed for discrepancies and discrepancies were resolved. Home Medications Albuterol Sulfate [Albuterol Sulfate HFA] 2 puff INHALATION Q4H PRN PRN 10/02/19 Folic Acid 1 mg PO DAILY 10/21/19 Citalopram [Celexa] 10 mg PO DAILY 10/29/19 Thiamine HCl [B-1] 100 mg PO DAILY 10/29/19 Acetaminophen [Tylenol Extra Strength] 1,000 mg PO Q8H PRN PRN 11/01/19 Albuterol Aerosols [Ventolin Aerosols] 2.5 mg INHALATION Q4HWA.RT 11/01/19 Ferrous Sulfate [Ferosul] 325 mg PO DAILY 11/01/19 Lorazepam [Ativan] 0.5 mg PO BID PRN PRN 11/01/19 Tramadol HCl [Ultram] 50 mg PO Q8H PRN PRN 11/01/19 Amox/Clavulanate Tablet [Augmentin Tablet] 875 mg PO BID 4 Days tab 11/05/19 Guaifenesin [Mucinex] 1,200 mg PO BID tab 11/05/19 Pantoprazole Sodium [Protonix] 40 mg PO BID tab 11/05/19 Potassium Chloride [K-Dur] 40 meq PO DAILYCM tab 11/05/19 predniSONE tablet See Taper PO DAILY@0800 tab 11/05/19
[2019-11-05] MEDS: Amox/Clavulanate 875 MG Tablet PO (17:00)
[2019-11-05] MEDS: ALPRAZolam 0.5 MG Tablet PO (22:02)
[2019-11-05] MEDS: Pantoprazole Sodium 40 MG Tablet PO (22:02)
[2019-11-05] MEDS: Menthol/Lanolin/Calamine/Znox 113 GM Tube 1 APPLIC TOPICAL (22:02)
[2019-11-05] MEDS: MELATONIN 3 MG TABLET PO (22:02)
[2019-11-06] VITALS (13 sets, daily range): BP systolic 109–133; BP diastolic 68–72; PULSE 81–100; RESP 16–18; TEMP 36.4–37.1; O2SAT 93–98
[2019-11-06] MEDS: LORazepam 0.5 MG Tablet PO ×3 (01:28→20:30)
[2019-11-06] MEDS: 0.9% Normal Saline 1,000 ML 100 ML IV ×3 (03:03→23:20)
[2019-11-06 05:23] LABS: Hematocrit 33.8 % (37-47); Hemoglobin 10.6 g/dL (12.0-15.0); Mean Corp Hgb Conc 31.4 g/dL (32-36); Mean Corpuscular Hgb 30.3 pg (27.0-32.0); Mean Corpuscular Volume 96.6 fL (81-99); Mean Platelet Vol. 8.5 fl (6.2-12.0); POSITIVE MORPHOLOGY YES; Platelet Count 453 K/mm3 (150-450); RBC Distribution Width CV 18.6 % (11.6-14.6); RBC Distribution Width SD 66.1 fl (35.1-43.9); White Blood Count 10.3 K/mm3 (4.4-11.0)
[2019-11-06 05:27] LABS: Scan Indicated on CBC? Y/N YES- FLAGS NOTED
[2019-11-06 05:40] LABS: Anion Gap 3 (5-15); BUN 4 mg/dL (7-18); BUN/Creat Ratio 15.2 RATIO (10-20); Calcium,Total 7.8 mg/dL (8.5-10.1); Chloride 103 mmol/L (98-107); Creatinine, Serum 0.26 mg/dL (0.55-1.02); EST Glomerular Filtration Rate 276 mL/min (>60); Est Glom Filt Rate - Afr Amer 334 mL/min (>60); Estimated Creatinine Clearance 166.87 ml/min; Glucose 115 mg/dL (74-106); Potassium 3.8 mmol/L (3.5-5.1); Sodium Level 134 mmol/L (136-145)
[2019-11-06 06:07] LABS: Differential Comment SCANNED
[2019-11-06] MEDS: Ipratropium/Albuterol Sulfate 3 ML AMPUL.NEB INHALATION ×4 (06:55→19:03)
[2019-11-06] MEDS: Folic Acid 1 MG Tablet PO (08:37)
[2019-11-06] MEDS: Amox/Clavulanate 875 MG Tablet PO ×2 (08:38→17:23)
[2019-11-06] MEDS: Ferrous Sulfate 325 MG Tablet PO (08:38)
[2019-11-06] MEDS: predniSONE 20 MG Tablet 40 MG PO (08:38)
[2019-11-06] MEDS: traMADol 50 MG Tablet PO ×2 (09:45→20:40)
[2019-11-06] MEDS: guaiFENesin 1,200 MG Tablet 1200 MG PO ×2 (09:47→22:14)
[2019-11-06] MEDS: Thiamine Hydrochloride 100 MG Tablet PO (09:47)
[2019-11-06] MEDS: Citalopram 10 MG Tablet PO (09:47)
[2019-11-06] MEDS: Pantoprazole Sodium 40 MG Tablet PO ×2 (09:47→22:14)
--- NOTE | 2019-11-06 12:39 | CASEMGMT ---
DEVIKA called Lula at [facility] and she called Kathy today. She said they told her they are hoping to get to it today. She let them know patient is ready for discharge and has been for several days. She also reminded them that this process was started Tuesday. Continue to wait on insurance. Krista ZHANG MSW
--- NOTE | 2019-11-06 13:35 | PCM.PROGNOTE ---
<Azra Palafox ENVIRONMENTAL COMPLIANCE OFFICER - Last Filed: 11/06/19 13:41> Subjective: Patient seen and examined. Anxious to return to SNF. Awaiting pre-cert. Denies new symptoms or complaints. - Physical Exam Vitals/I&O's: Vital Signs Temp Pulse Resp BP Pulse Ox 97.5 F L 86 16 117/69 97 11/06/19 09:41 11/06/19 10:47 11/06/19 10:47 11/06/19 09:41 11/06/19 09:41 Oxygen Flow Rate (L/min) 2 Oxygen Delivery Method Room Air Weight: 108 lb 0.424 oz Body Mass Index (BMI) 16.9 Intake and Output for Last 24 Hours 11/04/19 11/05/19 11/06/19 23:59 23:59 23:59 Intake Total 4193.59 / 4413.59 3563.55 / 3563.55 1453.33 / 1453.33 Output Total 150 / 150 Balance 4193.59 / 4413.59 3413.55 / 3413.55 1453.33 / 1453.33 General: Alert, Oriented x3, Cooperative HEENT: Atraumatic, PERRLA, EOMI, Normocephalic Neck: Supple, No JVD, Negative Carotid Bruits Lungs: Clear to auscultation, Diminished Cardiovascular: Regular rate, No murmurs Abdomen: Bowel Sounds Present, Soft, Non Tender, Non-Distended Extremities: No clubbing, No cyanosis, No edema, Capillary Refill Less than 3 Seconds Skin: No rashes, No breakdown Musculoskeletal: No Tenderness to Palpation of Joints or Extremities, Cachexia, Muscle Wasting Neurological: Cranial nerves II-XII grossly intact, Neuro grossly intact Psych/Mental Status: Normal Affect, Appropriate Laboratory Results 11/06/19 05:14: WBC 10.3, RBC 3.50 L, Hgb 10.6 L, Hct 33.8 L, MCV 96.6, MCH 30.3, MCHC 31.4 L, RDW Std Deviation 66.1 H, RDW Coeff of Lennox 18.6 H, Plt Count 453 H, MPV 8.5, Differential Comment SCANNED 11/06/19 05:14: Sodium 134 L, Potassium 3.8, Chloride 103, Carbon Dioxide 28.0, Anion Gap 3 L, BUN 4 L, Creatinine 0.26 L, Estim Creat Clear Calc 166.87, Est GFR (MDRD) Af Amer 334, Est GFR (MDRD) Non-Af 276, BUN/Creatinine Ratio 15.2, Glucose 115 H, Calcium 7.8 L Current Medications Acetaminophen (Tylenol) 650 mg PO Q6H PRN PRN PRN Reason: Pain Score 1-10/Temp > 100.7 F Al Hydroxide/Mg Hydroxide (Mylanta Ii) 30 ml PO Q6H PRN PRN PRN Reason: Gastric Burning Albuterol Sulfate (Ventolin Aerosols) 2.5 mg INHALATION Q2H PRN PRN PRN Reason: Dyspnea, wheezing Albuterol/Ipratropium (Duoneb) 3 ml INHALATION Q4HWA.RT [facility] Last Admin: 11/06/19 10:47 Dose: 3 ml Documented by: Alprazolam (Xanax) 0.5 mg PO QHS PRN PRN PRN Reason: INSOMNIA Last Admin: 11/05/19 22:02 Dose: 0.5 mg Documented by: Amoxicillin/Clavulanate Pot[facility] ([facility]in [facility]) [facility] Last Admin: 11/06/19 08:38 Dose: 875 mg Documented by: Calamine/Phenol (Calmoseptine Ointment) 1 applic TOPICAL TID [facility]; Protocol Last Admin: 11/06/19 06:46 Dose: Not Given Documented by: Citalopram Hydrobromide (Celexa) 10 mg PO DAILY [facility] Last Admin: 11/06/19 09:47 Dose: 10 mg Documented by: Ferrous Sulfate (Ferrous Sulfate) [facility] Last Admin: 11/06/19 08:38 Dose: 325 mg Documented by: Folic Acid (Folic Acid) [facility] Last Admin: 11/06/19 08:37 Dose: 1 mg Documented by: Guaifenesin (Mucinex) 1,200 mg PO BID [facility] Last Admin: 11/06/19 09:47 Dose: 1,200 mg Documented by: Hydralazine HCl (Apresoline Iv) 10 mg IV Q4H PRN PRN PRN Reason: SBP > 160 Sodium Chloride () 1,000 mls @ 100 mls/hr IV .Q10H [facility] Last Admin: 11/06/19 13:12 Dose: 100 mls/hr Documented by: Sodium Chloride () 250 mls @ 15 mls/hr IV .[id number] PRN PRN Reason: Saline Flush Last Infusion: 11/04/19 05:41 Dose: 0 mls/hr Documented by: Sodium Chloride () 250 mls @ 15 mls/hr IV .[id number] PRN PRN Reason: Additional IVPB Infusion Lorazepam (Ativan) 0.5 mg PO BID PRN PRN PRN Reason: ANXIETY Last Admin: 11/06/19 13:12 Dose: 0.5 mg Documented by: Magnesium Hydroxide (Milk Of Magnesia) 30 ml PO DAILY PRN PRN PRN Reason: Constipation Melatonin (Melatonin) 3 mg PO QHS PRN PRN PRN Reason: INSOMNIA Last Admin: 11/05/19 22:02 Dose: 3 mg Documented by: Nitroglycerin (Nitrostat) 0.4 mg SUBLINGUAL Q5M PRN PRN Reason: CARDIAC/CHEST PAIN Ondansetron HCl (Zofran) 4 mg IV Q8H PRN PRN PRN Reason: NAUSEA/VOMITING Pantoprazole Sodium (Protonix) 40 mg PO BID [facility] Last Admin: 11/06/19 09:47 Dose: 40 mg Documented by: Potassium Chloride (K-Dur) [facility] Last Admin: 11/06/19 08:37 Dose: 40 meq Documented by: Prednisone () 40 mg PO DAILY@0800 [facility] Last Admin: 11/06/19 08:38 Dose: 40 mg Documented by: Prochlorperazine Edisylate (Compazine Iv) 5 mg IV Q4H PRN PRN PRN Reason: Breakthrough Nausea/Vomiting Psyllium Hydrophilic Mucilloid (Metamucil) 1 packet PO DAILY PRN PRN PRN Reason: Constipation Senna/Docusate Sodium (Senokot-S, Deya-Colace) 2 tablet PO BID PRN PRN PRN Reason: Constipation Sodium Chloride () 10 - 40 ml IV UD PRN PRN Reason: SALINE FLUSH Last Admin: 11/03/19 05:20 Dose: 10 ml Documented by: Thiamine HCl (Vitamin B1) 100 mg PO DAILY [facility] Last Admin: 11/06/19 09:47 Dose: 100 mg Documented by: Throat Lozenges (Cepacol Sore Throat Lozenge) 1 lozenge MUCOUS MEM Q2H PRN PRN PRN Reason: SORE THROAT Tramadol HCl (Ultram) 50 mg PO Q8H PRN PRN PRN Reason: Pain Score 4-5/10 Last Admin: 11/06/19 09:45 Dose: 50 mg Documented by: Medical Necessity - Tobacco Use Smoking Status: Former smoker Assessment/Plan All Active Problems Acute respiratory failure with hypoxia (Acute) Pneumonia (Acute) Sepsis (Acute) COPD exacerbation (Acute) Iron deficiency anemia due to chronic blood loss (Acute) Generalized weakness (Acute) Leukocytosis (Acute) Thrombocytosis (Acute) Anemia (Acute) 1. Acute on chronic anemia- Seen by hematology during recent admission September 2019 and felt to be iron deficiency anemia/ Anemia of chronic disease. Patient did undergo recent GI evaluation at [facility] where she was found to have bleeding gastric ulcer status post clipping 10/05/2019. Ulcer was suspected secondary to EtOH abuse and NSAID use. Stool for occult blood positive. Continue BID PPI. Hemoglobin stable status post 2 units PRBC. Continue iron supplementation. Hemoglobin remains stable. Continue to hold aspirin. 2. Acute hypoxic respiratory insufficiency, secondary to exacerbation of COPD and left lower lobe lingular healthcare associated pneumonia-sepsis ruled out. Chest x-ray on admission with right middle lobe scarring. Repeat chest x-ray showed interval development of lingular pneumonia. COVID negative. Respiratory panel negative. Albuterol and DuoNeb aerosols. Continue supplement oxygen to maintain O2 at or above 90%. Transition IV Solu-Medrol to prednisone taper. Transition from IV Zosyn to augmentin. Encourage incentive spirometer use. Oxygen now stable on room air. 3. Leukocytosis-appears chronic. Suspect reactive leukocytosis. Previously seen by hematology as noted above for leukocytosis and thrombocytosis. 4. History of alcohol abuse-recently sober. 5. Anxiety/depression-continue home Celexa, Xanax. 6. Former tobacco use-encouraged continued cessation. 7. Severe protein calorie malnutrition-dietitian consult. DVT prophylaxis-SCDs Discharge planning: Return to SNF pending pre-cert/approval. This patient was seen by YEN Cook under the supervision of Dr. Abarca. <Ronny Abarca - Last Filed: 11/06/19 13:45> - Physical Exam Vitals/I&O's: Vital Signs Temp Pulse Resp BP Pulse Ox 36.4 C L 86 16 117/69 97 11/06/19 09:41 11/06/19 10:47 11/06/19 10:47 11/06/19 09:41 11/06/19 09:41 Oxygen Flow Rate (L/min) 2 Oxygen Delivery Method Room Air Weight: 49 kg Body Mass Index (BMI) 16.9 Intake and Output for Last 24 Hours 11/04/19 11/05/19 11/06/19 23:59 23:59 23:59 Intake Total 4193.59 / 4413.59 3563.55 / 3563.55 1453.33 / 1453.33 Output Total 150 / 150 Balance 4193.59 / 4413.59 3413.55 / 3413.55 1453.33 / 1453.33 General: Alert, Cooperative HEENT: Atraumatic, Normocephalic Lungs: Clear to auscultation, Diminished Cardiovascular: Regular rate, No murmurs Abdomen: Bowel Sounds Present, Soft, Non Tender, Non-Distended Skin: No rashes, No breakdown Laboratory Results 11/06/19 05:14: WBC 10.3, RBC 3.50 L, Hgb 10.6 L, Hct 33.8 L, MCV 96.6, MCH 30.3, MCHC 31.4 L, RDW Std Deviation 66.1 H, RDW Coeff of Lennox 18.6 H, Plt Count 453 H, MPV 8.5, Differential Comment SCANNED 11/06/19 05:14: Sodium 134 L, Potassium 3.8, Chloride 103, Carbon Dioxide 28.0, Anion Gap 3 L, BUN 4 L, Creatinine 0.26 L, Estim Creat Clear Calc 166.87, Est GFR (MDRD) Af Amer 334, Est GFR (MDRD) Non-Af 276, BUN/Creatinine Ratio 15.2, Glucose 115 H, Calcium 7.8 L Current Medications Acetaminophen (Tylenol) 650 mg PO Q6H PRN PRN PRN Reason: Pain Score 1-10/Temp > 100.7 F Al Hydroxide/Mg Hydroxide (Mylanta Ii) 30 ml PO Q6H PRN PRN PRN Reason: Gastric Burning Albuterol Sulfate (Ventolin Aerosols) 2.5 mg INHALATION Q2H PRN PRN PRN Reason: Dyspnea, wheezing Albuterol/Ipratropium (Duoneb) 3 ml INHALATION Q4HWA.RT [facility] Last Admin: 11/06/19 10:47 Dose: 3 ml Documented by: Alprazolam (Xanax) 0.5 mg PO QHS PRN PRN PRN Reason: INSOMNIA Last Admin: 11/05/19 22:02 Dose: 0.5 mg Documented by: Amoxicillin/Clavulanate Potassium (Augmentin Tablet) [facility] Last Admin: 11/06/19 08:38 Dose: 875 mg Documented by: Calamine/Phenol (Calmoseptine Ointment) 1 applic TOPICAL TID [facility]; Protocol Last Admin: 11/06/19 06:46 Dose: Not Given Documented by: Citalopram Hydrobromide (Celexa) 10 mg PO DAILY [facility] Last Admin: 11/06/19 09:47 Dose: 10 mg Documented by: Ferrous Sulfate (Ferrous Sulfate) 325 [facility] Last Admin: 11/06/19 08:38 Dose: 325 mg Documented by: Folic Acid (Folic Acid) 1 mg PO [facility]ILYB[facility] Last Admin: 11/06/19 08:37 Dose: 1 mg Documented by: Guaifenesin (Mucinex) 1,200 mg PO BID [facility] Last Admin: 11/06/19 09:47 Dose: 1,200 mg Documented by: Hydralazine HCl (Apresoline Iv) 10 mg IV Q4H PRN PRN PRN Reason: SBP > 160 Sodium Chloride () 1,000 mls @ 100 mls/hr IV .Q10H [facility] Last Admin: 11/06/19 13:12 Dose: 100 mls/hr Documented by: Sodium Chloride () 250 mls @ 15 mls/hr IV .[id number] PRN PRN Reason: Saline Flush Last Infusion: 11/04/19 05:41 Dose: 0 mls/hr Documented by: Sodium Chloride () 250 mls @ 15 mls/hr IV .[id number] PRN PRN Reason: Additional IVPB Infusion Lorazepam (Ativan) 0.5 mg PO BID PRN PRN PRN Reason: ANXIETY Last Admin: 11/06/19 13:12 Dose: 0.5 mg Documented by: Magnesium Hydroxide (Milk Of Magnesia) 30 ml PO DAILY PRN PRN PRN Reason: Constipation Melatonin (Melatonin) 3 mg PO QHS PRN PRN PRN Reason: INSOMNIA Last Admin: 11/05/19 22:02 Dose: 3 mg Documented by: Nitroglycerin (Nitrostat) 0.4 mg SUBLINGUAL Q5M PRN PRN Reason: CARDIAC/CHEST PAIN Ondansetron HCl (Zofran) 4 mg IV Q8H PRN PRN PRN Reason: NAUSEA/VOMITING Pantoprazole Sodium (Protonix) 40 mg PO BID [facility] Last Admin: 11/06/19 09:47 Dose: 40 mg Documented by: Potassium Chloride (K-Dur) 40 meq PO DAILYCM [facility] Last Admin: 11/06/19 08:37 Dose: 40 meq Documented by: Prednisone () 40 mg PO DAILY@0800 [facility] Last Admin: 11/06/19 08:38 Dose: 40 mg Documented by: Prochlorperazine Edisylate (Compazine Iv) 5 mg IV Q4H PRN PRN PRN Reason: Breakthrough Nausea/Vomiting Psyllium Hydrophilic Mucilloid (Metamucil) 1 packet PO DAILY PRN PRN PRN Reason: Constipation Senna/Docusate Sodium (Senokot-S, Deya-Colace) 2 tablet PO BID PRN PRN PRN Reason: Constipation Sodium Chloride () 10 - 40 ml IV UD PRN PRN Reason: SALINE FLUSH Last Admin: 11/03/19 05:20 Dose: 10 ml Documented by: Thiamine HCl (Vitamin B1) 100 mg PO DAILY [facility] Last Admin: 11/06/19 09:47 Dose: 100 mg Documented by: Throat Lozenges (Cepacol Sore Throat Lozenge) 1 lozenge MUCOUS MEM Q2H PRN PRN PRN Reason: SORE THROAT Tramadol HCl (Ultram) 50 mg PO Q8H PRN PRN PRN Reason: Pain Score 4-5/10 Last Admin: 11/06/19 09:45 Dose: 50 mg Documented by: Assessment/Plan Patient seen and examined independently. Data reviewed. I agree with the above note by the nurse practitioner. 1. Acute blood loss anemia: Hemoglobin was 7.2 on admission and has improved to 10.5 today. This is after 2 units of packed red blood cells. Last month had work-up showing low iron and abnormally normal ferritin level. Iron deficiency anemia. Continue with ferrous sulfate. Aspirin on hold. 2. Acute hypoxic respiratory insufficiency: Multifactorial secondary to exacerbation of COPD as well as pneumonia. Currently on room air. 3. Acute COPD exacerbation: Bronchodilators plus prednisone. 5 days of prednisone then stop. 4. Debility: Awaiting on precertification. Once that is obtained, patient can be discharged. Inpatient E&M: [id number] Subs Hosp L2
--- NOTE | 2019-11-06 14:09 | CASEMGMT ---
DEVIKA received a call from Skylar with [employer] who contracts with [facility] on authorizations. She indicated they only received an updated PT note. She also said they do not know which facility patient wants to go to. SW explained the information was all sent in on Tuesday and not sure why it took until today to notify anyone they needed more information. SW answered her questions. She then started to ask SW clinical questions and DEVIKA told her SW is not comfortable answering these questions as SW is not a nurse. She verbalized understanding. She said she will be sending the case to the medical billing coder as she is concerned as patient is a stand by assist. She said they should have an answer today. SW will continue to wait on insurance. BREANNA Oquendo said she would do a peer to peer if necessary. Krista ZHANG MSW
[2019-11-06] MEDS: Menthol/Lanolin/Calamine/Znox 113 GM Tube 1 APPLIC TOPICAL ×2 (15:06→22:22)
[2019-11-06] MEDS: MELATONIN 3 MG TABLET PO (22:14)
[2019-11-07] VITALS (7 sets, daily range): BP systolic 113–158; BP diastolic 66–80; PULSE 72–90; RESP 16–20; TEMP 36.5–36.8; O2SAT 95–97
[2019-11-07] MEDS: Menthol/Lanolin/Calamine/Znox 113 GM Tube 1 APPLIC TOPICAL (05:27)
[2019-11-07] MEDS: Ipratropium/Albuterol Sulfate 3 ML AMPUL.NEB INHALATION ×2 (06:31→10:25)
--- NOTE | 2019-11-07 09:52 | CASEMGMT ---
DEVIKA received a call from Skylar with [employer]. She said physician will need to complete a peer to peer. The phone number for the physician to call is [phone] option 5. This needs to be done before 1p ET. DEVIKA will give this information to DAY TRADER Azra Palafox. Krista ZHANG MSW
[2019-11-07] MEDS: predniSONE 20 MG Tablet 40 MG PO (09:59)
[2019-11-07] MEDS: Citalopram 10 MG Tablet PO (10:00)
[2019-11-07] MEDS: Folic Acid 1 MG Tablet PO (10:00)
[2019-11-07] MEDS: Ferrous Sulfate 325 MG Tablet PO (10:00)
[2019-11-07] MEDS: guaiFENesin 1,200 MG Tablet 1200 MG PO (10:00)
[2019-11-07] MEDS: Amox/Clavulanate 875 MG Tablet PO (10:00)
[2019-11-07] MEDS: Thiamine Hydrochloride 100 MG Tablet PO (10:00)
[2019-11-07] MEDS: Pantoprazole Sodium 40 MG Tablet PO (10:00)
[2019-11-07] MEDS: traMADol 50 MG Tablet PO (10:05)
[2019-11-07] MEDS: 0.9% Normal Saline 1,000 ML 100 ML IV (10:06)
--- NOTE | 2019-11-07 10:57 | DS.PCM_ITS ---
<Azra Palafox TOOL RENTAL TECHNICIAN - Last Filed: 11/07/19 11:09> Discharge Date and Diagnosis Date of Admission: 11/01/19 Date of Discharge: 11/07/19 - Primary Discharge Diagnosis Acute Problems: 1. Acute blood loss anemia on chronic anemia 2. Acute hypoxic respiratory insufficiency, secondary to exacerbation of COPD and left lower lobe lingular healthcare associated pneumonia-sepsis ruled out. 3. Leukocytosis-appears chronic. 4. History of alcohol abuse 5. Anxiety/depression 6. Former tobacco use 7. Severe protein calorie malnutrition - Secondary Discharge Diagnosis Chronic Problems: Chronic Problems COPD (chronic obstructive pulmonary disease) (Chronic) Asthma exacerbation in COPD (Chronic) Anxiety and depression (Chronic) Alcohol abuse (Chronic) Severe protein-calorie malnutrition (Chronic) Tobacco use (Chronic) Hospital Course and Treatment Imaging Results: Diagnostic Data Chest X-Ray 11/03/19 05:55 IMPRESSION: Interval development of lingular pneumonia. Electronically Signed: Van Beck MD at 6:35 EDT Tel , Service support , Operations: None Procedures: None Summary of Care Provided: The patient is a 64 year old F who presents emergency room 11/01/2019 due to cough, recent pneumonia and low hemoglobin. 1. Acute on chronic anemia- Seen by hematology during recent admission September 2019 and felt to be iron deficiency anemia/ Anemia of chronic disease. Patient did undergo recent GI evaluation at [facility] where she was found to have bleeding gastric ulcer status post clipping 10/05/2019. Ulcer was suspected secondary to EtOH abuse and NSAID use. Stool for occult blood positive. Hemoglobin stable status post 2 units PRBC. Continue iron supplementation. Hemoglobin remains stable. Continue to hold aspirin. Continue twice daily PPI at discharge. Weekly CBC at [facility]. 2. Acute hypoxic respiratory insufficiency, secondary to exacerbation of COPD and left lower lobe lingular healthcare associated pneumonia-sepsis ruled out. Chest x-ray on admission with right middle lobe scarring. Repeat chest x-ray showed interval development of lingular pneumonia. COVID negative. Respiratory panel negative. Albuterol and DuoNeb aerosols. Continue supplement oxygen to maintain O2 at or above 90%. Transition IV Solu-Medrol to prednisone taper. IV Zosyn during admission with transition to Augmentin to complete course. E ncourage incentive spirometer use. Oxygen now stable on room air. 3. Leukocytosis-appears chronic. Suspect reactive leukocytosis. Previously seen by hematology as noted above for leukocytosis and thrombocytosis. Leukocytosis resolved during admission. 4. History of alcohol abuse-recently sober due to hospital/SNF admission. [facility] consulted-recommend outpatient follow-up/referral or SNF consult if able for continued follow-up. 5. Anxiety/depression-continue home Celexa, Xanax. 6. Former tobacco use-encouraged continued cessation. 7. Severe protein calorie malnutrition-dietitian consult. General: Alert, Oriented x3, Cooperative HEENT: Atraumatic, PERRLA, EOMI, Normocephalic Oral: Dry Mucosa Neck: Supple, No JVD, Negative Carotid Bruits Lungs: Clear to auscultation, Diminished Cardiovascular: Regular rate, No murmurs Abdomen: Bowel Sounds Present, Soft, Non Tender, Non-Distended Extremities: No clubbing, No cyanosis, No edema, Capillary Refill Less than 3 Seconds Skin: No rashes, No breakdown Musculoskeletal: No Tenderness to Palpation of Joints or Extremities Neurological: Cranial nerves II-XII grossly intact, Neuro grossly intact Psych/Mental Status: Normal Affect, Appropriate Patient seen and examined prior to discharge. Physical assessment as noted above. Patient is stable for discharge with follow up recommendations as noted above. This patient was seen by YEN Cook under the supervision of Dr. Abarca. - Physical Exam Vitals/I&O's: Vital Signs Temp Pulse Resp BP Pulse Ox 98.3 F 90 20 H 113/66 95 11/07/19 09:56 11/07/19 09:56 11/07/19 09:56 11/07/19 09:56 11/07/19 09:56 Oxygen Flow Rate (L/min) 2 Oxygen Delivery Method Room Air Weight: 108 lb 0.424 oz Body Mass Index (BMI) 16.9 Intake and Output for Last 24 Hours 11/05/19 11/06/19 11/07/19 23:59 23:59 23:59 Intake Total 3563.55 / 3563.55 3438.33 / 3438.33 1035 / 1035 Output Total 150 / 150 Balance 3413.55 / 3413.55 3438.33 / 3438.33 1035 / 1035 Microbiology Past 72 Hours 11/01/19 20:40 Blood Culture (Wb) - Anticubital Right Blood Culture - Final No growth in 5 days. 11/01/19 19:50 Blood Culture (Wb) - Anticubital Left Blood Culture - Final No growth in 5 days. Current Medications Acetaminophen (Tylenol) 650 mg PO Q6H PRN PRN PRN Reason: Pain Score 1-10/Temp > 100.7 F Al Hydroxide/Mg Hydroxide (Mylanta Ii) 30 ml PO Q6H PRN PRN PRN Reason: Gastric Burning Albuterol Sulfate (Ventolin Aerosols) 2.5 mg INHALATION Q2H PRN PRN PRN Reason: Dyspnea, wheezing Albuterol/Ipratropium (Duoneb) 3 ml INHALATION Q4HWA.RT [facility] Last Admin: 11/07/19 10:25 Dose: 3 ml Documented by: Alprazolam (Xanax) 0.5 mg PO QHS PRN PRN PRN Reason: INSOMNIA Last Admin: 11/05/19 22:02 Dose: 0.5 mg Documented by: Amoxicillin/Clavulanate [facility] ([facility] Admin: 11/07/19 10:00 Dose: 875 mg Documented by: Calamine/Phenol (Calmoseptine Ointment) 1 applic TOPICAL TID [facility]; Protocol Last Admin: 11/07/19 05:27 Dose: 1 applic Documented by: Citalopram Hydrobromide (Celexa) 10 mg PO DAILY [facility] Last Admin: 11/07/19 10:00 Dose: 10 mg Documented by: Ferrous Sulfate ([facility]ous Sulfate) [facility] Last Admin: 11/07/19 10:00 Dose: 325 mg Documented by: Folic Acid (Folic Acid) [facility] Last Admin: 11/07/19 10:00 Dose: 1 mg Documented by: Guaifenesin (Mucinex) 1,200 mg PO BID [facility] Last Admin: 11/07/19 10:00 Dose: 1,200 mg Documented by: Hydralazine HCl (Apresoline Iv) 10 mg IV Q4H PRN PRN PRN Reason: SBP > 160 Sodium Chloride () 1,000 mls @ 100 mls/hr IV .Q10H [facility] Last Admin: 11/07/19 10:06 Dose: 100 mls/hr Documented by: Sodium Chloride () 250 mls @ 15 mls/hr IV .[id number] PRN PRN Reason: Saline Flush Last Infusion: 11/04/19 05:41 Dose: 0 mls/hr Documented by: Sodium Chloride () 250 mls @ 15 mls/hr IV .[id number] PRN PRN Reason: Additional IVPB Infusion Lorazepam (Ativan) 0.5 mg PO BID PRN PRN PRN Reason: ANXIETY Last Admin: 11/06/19 20:30 Dose: 0.5 mg Documented by: Magnesium Hydroxide (Milk Of Magnesia) 30 ml PO DAILY PRN PRN PRN Reason: Constipation Melatonin (Melatonin) 3 mg PO QHS PRN PRN PRN Reason: INSOMNIA Last Admin: 11/06/19 22:14 Dose: 3 mg Documented by: Nitroglycerin (Nitrostat) 0.4 mg SUBLINGUAL Q5M PRN PRN Reason: CARDIAC/CHEST PAIN Ondansetron HCl (Zofran) 4 mg IV Q8H PRN PRN PRN Reason: NAUSEA/VOMITING Pantoprazole Sodium (Protonix) 40 mg PO BID [facility] Last Admin: 11/07/19 10:00 Dose: 40 mg Documented by: Potassium Chloride (K-Dur) 40 meq PO DAILYCM [facility] Last Admin: 11/07/19 10:01 Dose: 40 meq Documented by: Prednisone () 40 mg PO DAILY@0800 [facility] Last Admin: 11/07/19 09:59 Dose: 40 mg Documented by: Prochlorperazine Edisylate (Compazine Iv) 5 mg IV Q4H PRN PRN PRN Reason: Breakthrough Nausea/Vomiting Psyllium Hydrophilic Mucilloid (Metamucil) 1 packet PO DAILY PRN PRN PRN Reason: Constipation Senna/Docusate Sodium (Senokot-S, Deya-Colace) 2 tablet PO BID PRN PRN PRN Reason: Constipation Sodium Chloride () 10 - 40 ml IV UD PRN PRN Reason: SALINE FLUSH Last Admin: 11/03/19 05:20 Dose: 10 ml Documented by: Thiamine HCl (Vitamin B1) 100 mg PO DAILY [facility] Last Admin: 11/07/19 10:00 Dose: 100 mg Documented by: Throat Lozenges (Cepacol Sore Throat Lozenge) 1 lozenge MUCOUS MEM Q2H PRN PRN PRN Reason: SORE THROAT Tramadol HCl (Ultram) 50 mg PO Q8H PRN PRN PRN Reason: Pain Score 4-5/10 Last Admin: 11/07/19 10:05 Dose: 50 mg Documented by: Home Medications: Medications to take at Discharge Albuterol Sulfate [Albuterol Sulfate HFA] 2 puff INHALATION Q4H PRN PRN 10/02/19 Folic Acid 1 mg PO DAILY 10/21/19 Citalopram [Celexa] 10 mg PO DAILY 10/29/19 Thiamine HCl [B-1] 100 mg PO DAILY 10/29/19 Acetaminophen [Tylenol Extra Strength] 1,000 mg PO Q8H PRN PRN 11/01/19 Albuterol Aerosols [Ventolin Aerosols] 2.5 mg INHALATION Q4HWA.RT 11/01/19 Ferrous Sulfate [Ferosul] 325 mg PO DAILY 11/01/19 Lorazepam [Ativan] 0.5 mg PO BID PRN PRN 11/01/19 Tramadol HCl [Ultram] 50 mg PO Q8H PRN PRN 11/01/19 Amox/Clavulanate Tablet [Augmentin Tablet] 875 mg PO BID 4 Days tab 11/05/19 Guaifenesin [Mucinex] 1,200 mg PO BID tab 11/05/19 Pantoprazole Sodium [Protonix] 40 mg PO BID tab 11/05/19 Potassium Chloride [K-Dur] 40 meq PO DAILYCM tab 11/05/19 predniSONE tablet See Taper PO DAILY@0800 tab 11/05/19 Primary Care Physician: Zuly Doshi NP, TOOL RENTAL TECHNICIAN-C [NON-STAFF] - Please follow up with your Primary Care Physician in: 1 Week Please Follow Up With: Ronny Jean MD Disposition: Halfway facility Minutes spent on discharge:: 35 Patient Condition:: Stable Medical Necessity - Tobacco Use Smoking Status: Former smoker Meaningful Use Info Meaningful Use Diagnoses (Choose all that apply): None applicable <Ronny Abarca - Last Filed: 11/07/19 14:21> Discharge Date and Diagnosis - Secondary Discharge Diagnosis Chronic Problems: Chronic Problems COPD (chronic obstructive pulmonary disease) (Chronic) Asthma exacerbation in COPD (Chronic) Anxiety and depression (Chronic) Alcohol abuse (Chronic) Severe protein-calorie malnutrition (Chronic) Tobacco use (Chronic) Hospital Course and Treatment Operations: None Procedures: None Summary of Care Provided: Patient seen and examined independently. Data reviewed. I agree with the above note by the nurse practitioner. Please refer to the previous discharge summary for further details. [] - Physical Exam Vitals/I&O's: Vital Signs Temp Pulse Resp BP Pulse Ox 36.8 C 85 20 H 113/66 95 11/07/19 09:56 11/07/19 10:25 11/07/19 10:25 11/07/19 09:56 11/07/19 09:56 Oxygen Flow Rate (L/min) 2 Oxygen Delivery Method Room Air Weight: 49 kg Body Mass Index (BMI) 16.9 Intake and Output for Last 24 Hours 11/05/19 11/06/19 11/07/19 23:59 23:59 23:59 Intake Total 3563.55 / 3563.55 3438.33 / 3438.33 1275 / 1275 Output Total 150 / 150 Balance 3413.55 / 3413.55 3438.33 / 3438.33 1275 / 1275 General: Alert, No apparent distress HEENT: Atraumatic, Normocephalic Oral: Moist Mucosa, No Gingival or Mucosal Lesions/ Ulcerations Neck: No Nodes, Thyroid Normal Size and Texture Lungs: Clear to auscultation, Normal air movement Microbiology Past 72 Hours 11/01/19 20:40 Blood Culture (Wb) - Anticubital Right Blood Culture - Final No growth in 5 days. 11/01/19 19:50 Blood Culture (Wb) - Anticubital Left Blood Culture - Final No growth in 5 days. Discharge Diet: No Restrictions Disposition: Halfway facility Minutes spent on discharge:: 35 Patient Condition:: Stable Medical Necessity - Tobacco Use Smoking Status: Former smoker Meaningful Use Info Meaningful Use Diagnoses (Choose all that apply): None applicable Inpatient E&M: 97807 Disch Hosp
[2019-11-07] MEDS: LORazepam 0.5 MG Tablet PO (11:04)
--- NOTE | 2019-11-07 11:11 | CASEMGMT ---
BREANNA Oquendo did the peer to peer and patient was approved. SW called [facility] and arranged for patient to get picked up at via van. SW notified RN, dough sheeter, Lula at [facility], and patient. Patient declined the need for SW to call any family members. She said she would call them on her own. Plan: d/c back to [facility] under skilled level of care. [facility] will transport patient via wc van. Krista ZHNAG MSW
--- NOTE | 2019-11-07 12:21 | NURSING ---
report called to the [facility]
--- NOTE | 2019-11-07 14:22 | PCA ---
Called and cancelled apt with on 11/11 due to patient going to a SNF, [facility].
== END 2019-11-07 13:02 | disposition skilled nursing facility (03) | DRG 811 ==
LOC: ED 21:30 → PCU 23:33
PROVIDERS: Internal Medicine; Nurse Practitioner Family; Admitting Provider Family Medicine; Emergency Provider Emergency Medicine; PCP Family Medicine
DX: D62 Acute posthemorrhagic anemia (principal); K25.4 Chronic or unspecified gastric ulcer with hemorrhage; E43 Unspecified severe protein-calorie malnutrition; J18.9 Pneumonia, unspecified organism; J44.0 Chronic obstructive pulmonary disease with (acute) lower respiratory infection; J44.1 Chronic obstructive pulmonary disease with (acute) exacerbation; J45.901 Unspecified asthma with (acute) exacerbation; Z68.1 Body mass index [BMI] 19.9 or less, adult; E87.1 Hypo-osmolality and hyponatremia; Y95 Nosocomial condition; E87.6 Hypokalemia; R09.02 Hypoxemia; D63.8 Anemia in other chronic diseases classified elsewhere; R73.9 Hyperglycemia, unspecified; K21.9 Gastro-esophageal reflux disease without esophagitis; F10.11 Alcohol abuse, in remission; F32.9 Major depressive disorder, single episode, unspecified; F41.9 Anxiety disorder, unspecified; Z79.899 Other long term (current) drug therapy; Z87.891 Personal history of nicotine dependence; Z87.11 Personal history of peptic ulcer disease; Z79.82 Long term (current) use of aspirin; Z79.52 Long term (current) use of systemic steroids
CPT/HCPCS: 36415; 36430; 71045; 71046; 80048; 80053; 82274; 83036; 83605; 83735; 83880; 84484; 85025; 85027; 85610; 85730; 86850; 86900; 86901; 86920; 86922; 87040; 87449; 87633; 87635; 87641; 92610; 93005; 94640; 94667; 94668; 97110; 97116; 97162; 97166; 97530; 97535; 97802; 99251; 99284; 99285; C9803; J7030; J7040; J7050; P9016; A4216; G0463; J1940; U0003

== ENCOUNTER → 2019-12-19 13:23 | Outpatient (CLI) | payer MEDICARE, SELFPAY ==
[2019-11-02 09:54] VITALS: BMI 16.9
[2019-12-19 15:20] LABS: Absolute Lymphocyte Count 2.45 X10^3/uL (0.83-4.51); Absolute Neutrophil Count 9.9 X10^3/uL (2.0-7.7); Basophil# 0.05 X10^3/uL; Basophil% 0.4 % (0-1); Eosinophil# 0.16 X10^3/uL; Eosinophils% 1.2 % (0-5); Hematocrit 37.7 % (37-47); Hemoglobin 11.5 g/dL (12.0-15.0); Lymphocyte # 2.45 X10^3/ul (4.0); Mean Corp Hgb Conc 30.5 g/dL (32-36); Mean Corpuscular Hgb 27.8 pg (27.0-32.0); Mean Corpuscular Volume 91.3 fL (81-99); Mean Platelet Vol. 9.5 fl (6.2-12.0); Monocyte# 0.98 X10^3/uL; Monocyte% 7.2 % (0-10); NRBC Flagged by Analyzer 0 % (0-5); Neutrophil # 9.93 X10^3/uL (2.7-7.7); Neutrophil % 72.8 % (47-70); Platelet Count 558 K/mm3 (150-450); RBC Distribution Width CV 14.9 % (11.6-14.6); RBC Distribution Width SD 50.4 fl (35.1-43.9); Red Blood Count 4.13 M/mm3 (4.2-5.4); White Blood Count 13.6 K/mm3 (4.4-11.0)
[2019-12-19 15:39] LABS: ALB/GLOB Ratio 0.7 RATIO (0.9-2.4); AST(SGOT) 12 U/L (15-37); Alanine Aminotransfer ALT/SGPT 15 U/L (13-56); Albumin, Serum 2.8 g/dL (3.2-5.0); Alkaline Phosphatase 92 U/L (45-117); Anion Gap 8 (5-15); BUN 6 mg/dL (7-18); BUN/Creat Ratio 12.3 RATIO (10-20); Calcium,Total 8.7 mg/dL (8.5-10.1); Chloride 99 mmol/L (98-107); Creatinine, Serum 0.49 mg/dL (0.55-1.02); EST Glomerular Filtration Rate 135 mL/min (>60); Est Glom Filt Rate - Afr Amer 163 mL/min (>60); Globulin 4.3 g/dL (2.2-4.2); Glucose 140 mg/dL (74-106); Iron 37 ug/dL (50-170); Potassium 4.4 mmol/L (3.5-5.1); Protein, Total 7.1 g/dL (6.4-8.2); Sodium Level 134 mmol/L (136-145); Vitamin B12 253 pg/mL (211-911)
== END ==
PROVIDERS: PCP Family Medicine; Visit Provider Family Medicine
DX: D64.9 Anemia, unspecified (principal); E53.8 Deficiency of other specified B group vitamins; Z51.81 Encounter for therapeutic drug level monitoring
CPT/HCPCS: 36415; 80053; 82607; 83540; 85025

== ENCOUNTER 2020-05-01 07:55 | Outpatient (RCR) | payer MEDICARE, SELFPAY ==
[2019-11-02 09:54] VITALS: BMI 16.9
[2020-05-01] MEDS: COVID-19 VACC, MRNA(PFIZER)/PF 30 MCG/0.3 ML SYRINGE IM (12:59)
[2020-05-22] MEDS: COVID-19 VACC, MRNA(PFIZER)/PF 30 MCG/0.3 ML SYRINGE IM (13:02)
== END 2020-07-29 23:59 ==
LOC: IMMUN 07:55
PROVIDERS: PCP Family Medicine; Visit Provider Family Medicine
DX: Z23 Encounter for immunization (principal)
CPT/HCPCS: 0001A; 0002A; 91300

== ENCOUNTER → 2020-08-07 12:02 | Outpatient (CLI) | payer MEDICARE, SELFPAY ==
[2019-11-02 09:54] VITALS: BMI 16.9
--- NOTE | 2020-08-07 12:06 | RAD_ITS ---
ACR Level 3 findings have been noted. An addendum which confirms receipt of the report will follow. INDICATION: PAIN EXAMINATION/TECHNIQUE: X-RAY - XR Spine Lumbar Min 4 Views COMPARISON: None. FINDINGS: VERTEBRAE: Age indeterminate compression deformity of L5. Dextroscoliosis. No spondylolisthesis. Preservation of the normal lumbar lordosis. Mild multilevel facet arthropathy. Hypoplastic ribs at T12. DISCS: Mild multilevel degenerative disc disease and spondylosis. INCLUDED ABDOMEN: Included bowel gas pattern is non-obstructive. Vascular calcifications. RAD/L/S Spine Min 4 Views IMPRESSION: Age indeterminate mild compression deformity of L5. Mild multilevel degenerative disc disease and spondylosis. Electronically Signed: Hossein Bray MD at 21:30 EDT Tel , Service support ,
== END ==
PROVIDERS: PCP Family Medicine; Referring Provider Family Medicine; Visit Provider Family Medicine
DX: M54.9 Dorsalgia, unspecified (principal)
CPT/HCPCS: 72110

== ENCOUNTER → 2020-08-19 13:59 | Outpatient (CLI) | payer MEDICARE, SELFPAY ==
[2019-11-02 09:54] VITALS: BMI 16.9
--- NOTE | 2020-08-19 14:05 | BD_ITS ---
STUDY: DUAL ENERGY X-RAY ABSORPTIOMETRY / DXA REASON FOR EXAM: Female, 64 years old. M810. The patient''s postmenopausal. TECHNIQUE: Bone Mineral Density (BMD) measurements of lumbar spine and bilateral hips were obtained. COMPARISON: None. FINDINGS: Lumbar Spine (L1-L4): g/cm2 (0.801) / T-score (-3.2) / Z-score (-1.6) Findings are suggestive of osteoporosis with a high fracture risk. Increased kyphosis. Loss of height of mid dorsal vertebrae. Left Femur Total: g/cm2 (0.587) / T-score (-3.3) / Z-score (-2.1) Left Femoral Neck: g/cm2 (0.642) / T-score (-2.8) / Z-score (-1.4) Right Femur Total: g/cm2 (0.578) / T-score (-3.4) / Z-score (-2.2) Right Femoral Neck: g/cm2 (0.698) / T-score (-2.4) / Z-score (-1.0) BD/Dexa Bone Density Study IMPRESSION: The patient is considered osteoporotic as outlined below according to World [employer] Organization (WHO) criteria with a high fracture risk. Reference Information: The T-score is the number of standard deviations above or below the standard which is normal for young adults at their peak bone mineral density. The World Health Organization (WHO) interprets the T-scores as follows: Above -1 Normal bone density Between -1 and -2.5 Osteopenia Equal to / or below -2.5 Osteoporosis As a practical clinical guideline, osteopenia may be graded as follows: Mild -1 through -1.5 Moderate -1.6 through -2.0 Severe -2.1 through -2.4 The Z-score is the number of standard deviations above or below age-matched controls. A Z-score of less than -1.5 would be considered abnormal. References: 1. NIH Osteoporosis and Related Bone Diseases www osteo.org 2. International Society for Clinical Densitometry www iscd.org 3. National Osteoporosis Foundation www nof.org Electronically Signed: Herminio Freedman MD at 14:47 EDT , Service support ,
== END ==
PROVIDERS: PCP Family Medicine; Referring Provider Family Medicine; Visit Provider Family Medicine
DX: M81.0 Age-related osteoporosis without current pathological fracture (principal); Z78.0 Asymptomatic menopausal state
CPT/HCPCS: 77080

== ENCOUNTER → 2020-12-09 | Outpatient (CLI) | payer MEDICARE, SELFPAY | END | disposition home or self-care (01) | PROVIDERS: PCP Family Medicine; Referring Provider Family Medicine; Visit Provider Family Medicine | DX: Z20.828 Contact with and (suspected) exposure to other viral communicable diseases (principal) | CPT/HCPCS: 87635; U0005; U0003 ==

== ENCOUNTER → 2021-08-11 | Outpatient (CLI) | payer MEDICARE, SELFPAY ==
--- NOTE | 2021-08-11 10:42 | RAD_ITS ---
STUDY: X-RAY - THORACIC SPINE REASON FOR EXAM: Female, 65 years old. BACK PAIN TECHNIQUE: 3 view(s) of the thoracic spine were obtained. COMPARISON: 04/23/2019 FINDINGS: Normal kyphosis of the thoracic spine. Mild levoscoliosis there is an increase in the loss of height of the compression fracture of the mid thoracic spine consistent with worsening. Normal disc space heights. The soft tissue structures are unremarkable. RAD/Thoracic Spine 3 Views IMPRESSION: Worsening compression fracture of the mid thoracic spine with increased kyphosis. Electronically Signed: Van Beck MD at 11:23 EDT ,
[2021-08-11 12:51] LABS: Absolute Lymphocyte Count 2.17 X10^3/uL (0.83-4.51); Absolute Neutrophil Count 6.6 X10^3/uL (2.0-7.7); Basophil# 0.06 X10^3/uL; Basophil% 0.6 % (0-1); Hemoglobin 14.2 g/dL (12.0-15.0); Lymphocyte # 2.17 X10^3/ul (0.83-4.51); Lymphocyte % 22.5 % (19-41); Mean Corp Hgb Conc 33.8 g/dL (32-36); Mean Corpuscular Hgb 30.1 pg (27.0-32.0); Mean Platelet Vol. 9.7 fl (6.2-12.0); Monocyte% 7.3 % (0-10); NRBC Flagged by Analyzer 0 % (0-5); Neutrophil # 6.59 X10^3/uL (2.7-7.7); Neutrophil % 68.3 % (47-70); Platelet Count 356 K/mm3 (150-450); RBC Distribution Width CV 13.3 % (11.6-14.6); RBC Distribution Width SD 43.8 fl (35.1-43.9); Red Blood Count 4.72 M/mm3 (4.2-5.4); White Blood Count 9.7 K/mm3 (4.4-11.0)
[2021-08-11 13:05] LABS: AST(SGOT) 13 U/L (15-37); Alanine Aminotransfer ALT/SGPT 21 U/L (13-56); Albumin, Serum 3.9 g/dL (3.2-5.0); Alkaline Phosphatase 68 U/L (45-117); Anion Gap 9 (5-15); BUN 5 mg/dL (7-18); BUN/Creat Ratio 8.3 RATIO (10-20); Calcium,Total 9.1 mg/dL (8.5-10.1); Chloride 98 mmol/L (98-107); EST Glomerular Filtration Rate 105 mL/min (>60); Est Glom Filt Rate - Afr Amer 128 mL/min (>60); Ferritin 49 ng/mL (8-252); Glucose 112 mg/dL (74-106); Iron 62 ug/dL (50-170); Potassium 3.9 mmol/L (3.5-5.1); Protein, Total 7.9 g/dL (6.4-8.2); Sodium Level 133 mmol/L (136-145)
[2021-08-11 13:10] LABS: Vitamin B12 1166 pg/mL (211-911); Vitamin D,25 Hydroxy 43.6 ng/mL
== END | disposition home or self-care (01) ==
LOC: MTLAB 10:39
PROVIDERS: PCP Family Medicine; Referring Provider Family Medicine; Visit Provider Family Medicine
DX: M81.0 Age-related osteoporosis without current pathological fracture (principal); J44.9 Chronic obstructive pulmonary disease, unspecified; M54.9 Dorsalgia, unspecified; E53.8 Deficiency of other specified B group vitamins; E61.1 Iron deficiency; E55.9 Vitamin D deficiency, unspecified; F32.9 Major depressive disorder, single episode, unspecified
CPT/HCPCS: 36415; 72072; 80053; 82306; 82607; 82728; 83540; 85025

== ENCOUNTER → 2022-08-26 | Outpatient (CLI) | payer MEDICARE, SELFPAY ==
--- NOTE | 2022-08-26 08:58 | BD_ITS ---
STUDY: DUAL ENERGY X-RAY ABSORPTIOMETRY / DXA REASON FOR EXAM: Female, 66 years old. M810 TECHNIQUE: Bone Mineral Density (BMD) measurements of lumbar spine and bilateral hips were obtained. COMPARISON: Comparison is made with prior study dated August 19, 2020. FINDINGS: Lumbar Spine (L1-L4): g/cm2 (0.800) / T-score (-2.2) / Z-score (-0.3) Findings are suggestive of osteopenia with a high fracture risk. Left Femur Total: g/cm2 (0.583) / T-score (-2.9) / Z-score (-1.6) Left Femoral Neck: g/cm2 (0.582) / T-score (-2.4) / Z-score (-0.7) Right Femur Total: g/cm2 (0.532) / T-score (-3.4) / Z-score (-2.0) Right Femoral Neck: g/cm2 (0.586) / T-score (-2.4) / Z-score (-0.7) The T-Scores on the most recent prior examination were: Lumbar Spine (L1-L4): There has been improvement of bone density since the previous examination. Left Femur Total: which represents an improvement of 9.4%. Right Femur Total: which represents an improvement of 1.6%. BD/Dexa Bone Density Study IMPRESSION: The patient is considered osteoporotic as outlined below according to World [employer] [place] Organization (WHO) criteria with a high fracture risk. There has been improvement of bone density since the previous examination. Reference Information: The T-score is the number of standard deviations above or below the standard which is normal for young adults at their peak bone mineral density. The World Health Organization (WHO) interprets the T-scores as follows: Above -1 Normal bone density Between -1 and -2.5 Osteopenia Equal to / or below -2.5 Osteoporosis As a practical clinical guideline, osteopenia may be graded as follows: Mild -1 through -1.5 Moderate -1.6 through -2.0 Severe -2.1 through -2.4 The Z-score is the number of standard deviations above or below age-matched controls. A Z-score of less than -1.5 would be considered abnormal. References: 1. NIH Osteoporosis and Related Bone Diseases www osteo.org 2. International Society for Clinical Densitometry www iscd.org 3. National Osteoporosis Foundation www nof.org Electronically Signed: Herminio Freedman MD at 14:53 EDT ,
== END | disposition home or self-care (01) ==
LOC: OPBD 08:46
PROVIDERS: PCP Family Medicine; Referring Provider Family Medicine; Visit Provider Family Medicine
DX: M81.0 Age-related osteoporosis without current pathological fracture (principal)
CPT/HCPCS: 77080

== ENCOUNTER → 2022-10-26 | Outpatient (CLI) | payer MEDICARE, SELFPAY ==
--- NOTE | 2022-10-26 08:12 | CT_ITS ---
STUDY: LOW DOSE CT LUNG CANCER SCREENING REASON FOR EXAM: Female, 67 years old. LUNG CANCER SCREENING. The patient smoked 1 pack per day for 52 years. RADIATION DOSAGE (If Supplied By Facility): CTDIvol = ( 2.01 ) mGy, DLP = ( 65.19 ) mGycm TECHNIQUE: No contrast was administered. Low dose technique was utilized (average mAS-38 and kVp 120). 1.25 mm axial source images with a slice interval of 1.25-mm were reconstructed in lung windows. 2.5 mm axial source images with a slice interval of 2.5-mm were reconstructed in lung windows. 5.0 mm axial source images with a slice interval of 5.0-mm were reconstructed in soft tissue windows. COMPARISON: None. NODULES: No suspicious nodules are seen. Emphysema: Hyperinflation. Emphysematous changes worse in the upper lobes with scarring in the posterior left lung apex. Focal scarring is also seen in the anterior medial aspect of the right middle lobe as well as in the anterior aspect of the right lower lobe. Mild linear scarring in the lingular segment of the left upper lobe. Endobronchial lesion: None Aorta: Atherosclerotic plaque formation of the aortic arch. CORONARY ARTERIES: Coronary artery calcification is seen. Minimal anterior pericardial thickening. Heart: Unremarkable Pulmonary artery: Unremarkable Mediastinal nodes: Small mediastinal lymph nodes. Other chest and abdominal findings: CT/Low Dose CT Lung Screening IMPRESSION: Lung-RADS category 2 - Continue annual screening with LDCT in 12 months. IMPORTANT NOTES FOR USE: ACR Lung-RADS Version 1.1 Assessment Categories Release Date: 2018 Category: Coded 0-4 bases on nodule(s) with highest degree of suspicion. Negative screen is defined as categories 1 and 2; a positive screen is defined as categories 3 and 4. Category 3 and 4A nodules that are unchanged on interval CT should be coded as category 2, and individuals returned to screening in 12 months. Category 4X: Category 3 or 4 nodules with additional imaging findings that increase the suspicion of lung cancer, such as spiculation, GGN that doubles in size in 1 year, enlarged lymph notes, etc. Category Modifiers: S (significant finding unrelated to lung cancer) Electronically Signed: Herminio Freedman MD at 15:40 EDT ,
== END | disposition home or self-care (01) ==
PROVIDERS: PCP Family Medicine; Referring Provider Family Medicine; Visit Provider Family Medicine
DX: Z12.2 Encounter for screening for malignant neoplasm of respiratory organs (principal); Z87.891 Personal history of nicotine dependence
CPT/HCPCS: 71271

== ENCOUNTER → 2023-04-15 | Outpatient (CLI) | payer MEDICARE, SELFPAY ==
--- NOTE | 2023-04-15 10:38 | RAD_ITS ---
STUDY: X-RAY - LUMBAR SPINE REASON FOR EXAM: Female, 67 years old. Back pain. TECHNIQUE: 4 view(s) of the lumbar spine were obtained. COMPARISON: 08/07/2020 FINDINGS: Osteopenia. Moderate dextroscoliosis. Normal alignment of the vertebral bodies. Diffuse moderate lower thoracic and lumbosacral facet sclerosis. Endplate concavities compatible with osteoporosis most marked at L5. Vascular calcification. RAD/L/S Spine Min 4 Views IMPRESSION: Stable osteopenia, scoliosis and lumbosacral spondylosis. No acute finding identified. Electronically Signed: Fei Morales MD at 10:09 EST ,
--- NOTE | 2023-04-15 10:38 | RAD_ITS ---
STUDY: X-RAY - THORACIC SPINE REASON FOR EXAM: Female, 67 years old. Back pain. TECHNIQUE: 3 view(s) of the thoracic spine were obtained. COMPARISON: 08/11/2021 FINDINGS: Osteopenia with marked increased kyphosis, unaltered. Multiple anterior wedge compression deformities of mid thoracic vertebral bodies and marked loss of height of the T7 vertebral body, unchanged. Diffuse mild intervertebral disc space narrowing with small osteophytes, unaltered Vascular calcification unchanged. RAD/Thoracic Spine 3 Views IMPRESSION: Stable osteopenia, anterior wedge compression deformities of T8 and T9, marked loss of height of T7 and increased kyphosis. No interval change and no superimposed acute abnormality since the prior study. Electronically Signed: Fei Morales MD at 10:11 EST ,
== END | disposition home or self-care (01) ==
LOC: MTRAD 10:37
PROVIDERS: PCP Family Medicine; Referring Provider Family Medicine; Visit Provider Family Medicine
DX: S22.000G Wedge compression fracture of unspecified thoracic vertebra, subsequent encounter for fracture with delayed healing (principal); G89.29 Other chronic pain; M54.9 Dorsalgia, unspecified; X58.XXXD Exposure to other specified factors, subsequent encounter
CPT/HCPCS: 72072; 72110

== ENCOUNTER → 2023-08-19 | Outpatient (CLI) | payer MEDICARE, SELFPAY ==
[2023-08-19 15:19] LABS: Absolute Lymphocyte Count 2.13 X10^3/uL (0.83-4.51); Absolute Neutrophil Count 5.8 X10^3/uL (2.0-7.7); Basophil# 0.05 X10^3/uL; Basophil% 0.6 % (0-1); Eosinophil# 0.15 X10^3/uL; Eosinophils% 1.7 % (0-5); Hematocrit 36.2 % (37-47); Lymphocyte # 2.13 X10^3/ul (0.83-4.51); Lymphocyte % 24.3 % (19-41); Mean Corp Hgb Conc 33.1 g/dL (32-36); Mean Corpuscular Hgb 28.6 pg (27.0-32.0); Mean Corpuscular Volume 86.4 fL (81-99); Mean Platelet Vol. 10.1 fl (6.2-12.0); Monocyte% 6.8 % (0-10); NRBC Flagged by Analyzer 0 % (0-5); Neutrophil # 5.81 X10^3/uL (2.7-7.7); Neutrophil % 66.3 % (47-70); Platelet Count 395 K/mm3 (150-450); RBC Distribution Width CV 14.9 % (11.6-14.6); RBC Distribution Width SD 47.6 fl (35.1-43.9); Red Blood Count 4.19 M/mm3 (4.2-5.4); White Blood Count 8.8 K/mm3 (4.4-11.0)
[2023-08-19 15:39] LABS: Vitamin D,25 Hydroxy 50.8 ng/mL
[2023-08-19 15:46] LABS: ALB/GLOB Ratio 1.1 RATIO (0.9-2.4); AST(SGOT) 13 U/L (15-37); Alanine Aminotransfer ALT/SGPT 15 U/L (13-56); Albumin, Serum 3.9 g/dL (3.2-5.0); Alkaline Phosphatase 64 U/L (45-117); Anion Gap 7 (5-15); BUN 13 mg/dL (7-18); Calcium,Total 9.9 mg/dL (8.5-10.1); Chloride 98 mmol/L (98-107); Cholesterol 167 mg/dL (200); Creatinine, Serum 0.65 mg/dL (0.55-1.02); EST Glomerular Filtration Rate 96 mL/min (>60); Est Glom Filt Rate - Afr Amer 116 mL/min (>60); Globulin 3.6 g/dL (2.2-4.2); Glucose 90 mg/dL (74-106); High Density Lipoprotein 61 mg/dL; Potassium 4.1 mmol/L (3.5-5.1); Protein, Total 7.5 g/dL (6.4-8.2); Sodium Level 133 mmol/L (136-145); Triglycerides 103 mg/dL; Very Low Density Lipoprotein 21 mg/dL (5-40)
== END | disposition home or self-care (01) ==
LOC: MTLAB 12:32
PROVIDERS: PCP Family Medicine; Referring Provider Family Medicine; Visit Provider Family Medicine
DX: Z51.81 Encounter for therapeutic drug level monitoring (principal); E78.5 Hyperlipidemia, unspecified; E55.9 Vitamin D deficiency, unspecified
CPT/HCPCS: 36415; 80053; 80061; 82306; 85025

== ENCOUNTER → 2023-12-02 | Outpatient (CLI) | payer MEDICARE, SELFPAY ==
--- NOTE | 2023-12-02 07:28 | CT_ITS ---
STUDY: LOW DOSE CT LUNG CANCER SCREENING REASON FOR EXAM: Female, 68 years old. SCREENING, SMOKING HX RADIATION DOSAGE (If Supplied By Facility): CTDIvol = ( 2.01 ) mGy, DLP = ( 71.98 ) mGycm TECHNIQUE: No contrast was administered. Low dose technique was utilized (average mAS-38 and kVp 120). 1.25 mm axial source images with a slice interval of 1.25-mm were reconstructed in lung windows. 2.5 mm axial source images with a slice interval of 2.5-mm were reconstructed in lung windows. 5.0 mm axial source images with a slice interval of 5.0-mm were reconstructed in soft tissue windows. COMPARISON: Comparison is made with prior study dated October 26, 2022. NODULES: No suspicious nodules are seen. Emphysema: Hyperinflation. Emphysematous changes more prominently upper lobes. Bilateral apical pulmonary scarring worse at the left lung apex. Focal scarring is also noted to be aspect of the medial segment of left upper lobe and right middle lobe. Endobronchial lesion: None Aorta: Atherosclerotic plaque formation. CORONARY ARTERIES: Coronary artery calcification is seen. Heart: Unremarkable Pulmonary artery: Unremarkable Mediastinal nodes: Small mediastinal lymph nodes. Other chest and abdominal findings: CT/Low Dose CT Lung Screening IMPRESSION: Lung-RADS category 2 - Continue annual screening with LDCT in 12 months. IMPORTANT NOTES FOR USE: ACR Lung-RADS Version 1.1 Assessment Categories Release Date: 2018 Category: Coded 0-4 bases on nodule(s) with highest degree of suspicion. Negative screen is defined as categories 1 and 2; a positive screen is defined as categories 3 and 4. Category 3 and 4A nodules that are unchanged on interval CT should be coded as category 2, and individuals returned to screening in 12 months. Category 4X: Category 3 or 4 nodules with additional imaging findings that increase the suspicion of lung cancer, such as spiculation, GGN that doubles in size in 1 year, enlarged lymph notes, etc. Category Modifiers: S (significant finding unrelated to lung cancer) Electronically Signed: Herminio Freedman MD at 12:11 EDT ,
== END | disposition home or self-care (01) ==
PROVIDERS: PCP Family Medicine; Referring Provider Family Medicine; Visit Provider Family Medicine
DX: Z12.2 Encounter for screening for malignant neoplasm of respiratory organs (principal); F17.210 Nicotine dependence, cigarettes, uncomplicated
CPT/HCPCS: 71271

== ENCOUNTER → 2024-06-29 | Outpatient (CLI) | payer MEDICARE, SELFPAY ==
--- NOTE | 2024-06-29 09:37 | RAD_ITS ---
PROCEDURE: THORACIC SPINE 3 VIEWS 06/29/2024 REASON FOR EXAM: THORACIC BACK PAIN TECHNIQUE: 3 views of the thoracic spine COMPARISON: None. FINDINGS: Mild osteopenia. Reverse S shaped scoliosis. Severe chronic osteoporotic compression fracture of T5 vertebral body. Secondary increased dorsal kyphosis. There are diffuse spondylotic changes. Findings are demonstrated to by diffuse disc space narrowing, osteophyte formation and degenerative endplate sclerosis. There is diffuse facet joint arthropathy with secondary bilateral neural foramina narrowing. No dislocation is seen. No aggressive lytic or blastic bony lesion is noted. RAD/Thoracic Spine 3 Views IMPRESSION: Mild osteopenia. Reverse S shaped scoliosis. Severe chronic osteoporotic compression fracture of T5 vertebral body. Secondary increased dorsal kyphosis. Reading [facility]
[2024-06-29 13:43] LABS: Absolute Lymphocyte Count 3.12 X10^3/uL (0.83-4.51); Absolute Neutrophil Count 13.2 X10^3/uL (2.0-7.7); Basophil# 0.03 X10^3/uL; Basophil% 0.2 % (0-1); Eosinophil# 0.04 X10^3/uL; Eosinophils% 0.2 % (0-5); Hematocrit 35.2 % (37-47); Hemoglobin 11.7 g/dL (12.0-15.0); Lymphocyte # 3.12 X10^3/ul (0.83-4.51); Lymphocyte % 17.5 % (19-41); Mean Corp Hgb Conc 33.2 g/dL (32-36); Mean Corpuscular Hgb 25.7 pg (27.0-32.0); Mean Corpuscular Volume 77.4 fL (81-99); Mean Platelet Vol. 9.5 fl (6.2-12.0); Monocyte# 1.37 X10^3/uL; Monocyte% 7.7 % (0-10); NRBC Flagged by Analyzer 0 % (0-5); Neutrophil # 13.15 X10^3/uL (2.7-7.7); Platelet Count 440 K/mm3 (150-450); RBC Distribution Width CV 16.6 % (11.6-14.6); Red Blood Count 4.55 M/mm3 (4.2-5.4); White Blood Count 17.8 K/mm3 (4.4-11.0)
[2024-06-29 14:29] LABS: ALB/GLOB Ratio 1.5 RATIO (0.9-2.4); AST(SGOT) 20 U/L (<=31); Alanine Aminotransfer ALT/SGPT 17 U/L (<=34); Albumin, Serum 4.6 g/dL (3.4-4.8); Alkaline Phosphatase 53 U/L (35-104); Anion Gap 12 (5-15); BUN 15 mg/dL (4-19); BUN/Creat Ratio 19.6 RATIO (10-20); Calcium,Total 9.9 mg/dL (7.6-11.0); Carbon Dioxide 23.2 mmol/L (21.0-32.0); Chloride 93 mmol/L (98-108); Creatinine, Serum 0.78 mg/dL (0.70-1.20); EST Glomerular Filtration Rate 83 (>60); Globulin 3.1 g/dL (2.2-4.2); Glucose 107 mg/dL (70-99); Potassium 4.1 mmol/L (3.3-5.1); Protein, Total 7.7 g/dL (5.9-8.4); Sodium Level 129 mmol/L (133-145); Total Bilirubin 0.25 mg/dL (0.00-1.30); Vitamin D,25 Hydroxy 47.6 ng/mL (30-100)
== END | disposition home or self-care (01) ==
PROVIDERS: PCP Family Medicine; Referring Provider Family Medicine; Visit Provider Family Medicine
DX: M54.6 Pain in thoracic spine (principal); E55.9 Vitamin D deficiency, unspecified; Z51.81 Encounter for therapeutic drug level monitoring; D64.9 Anemia, unspecified
CPT/HCPCS: 36415; 72072; 80053; 82306; 85025

== ENCOUNTER → 2024-08-02 | Outpatient (CLI) | payer MEDICARE, SELFPAY ==
[2024-08-02 12:34] LABS: Absolute Lymphocyte Count 2.34 X10^3/uL (0.83-4.51); Absolute Neutrophil Count 6.8 X10^3/uL (2.0-7.7); Basophil# 0.03 X10^3/uL; Basophil% 0.3 % (0-1); Eosinophil# 0.15 X10^3/uL; Eosinophils% 1.5 % (0-5); Hematocrit 33.4 % (37-47); Hemoglobin 11.2 g/dL (12.0-15.0); Lymphocyte # 2.34 X10^3/ul (0.83-4.51); Lymphocyte % 23.1 % (19-41); Mean Corp Hgb Conc 33.5 g/dL (32-36); Mean Corpuscular Hgb 26.9 pg (27.0-32.0); Mean Corpuscular Volume 80.3 fL (81-99); Mean Platelet Vol. 10.1 fl (6.2-12.0); Monocyte# 0.77 X10^3/uL; Monocyte% 7.6 % (0-10); NRBC Flagged by Analyzer 0 % (0-5); Neutrophil # 6.78 X10^3/uL (2.7-7.7); Neutrophil % 67.1 % (47-70); Platelet Count 378 K/mm3 (150-450); RBC Distribution Width CV 18.9 % (11.6-14.6); RBC Distribution Width SD 54.4 fl (35.1-43.9); Red Blood Count 4.16 M/mm3 (4.2-5.4); White Blood Count 10.1 K/mm3 (4.4-11.0)
[2024-08-02 13:33] LABS: ALB/GLOB Ratio 1.6 RATIO (0.9-2.4); AST(SGOT) 17 U/L (<=31); Alanine Aminotransfer ALT/SGPT 10 U/L (<=34); Albumin, Serum 4.3 g/dL (3.4-4.8); Alkaline Phosphatase 54 U/L (35-104); Anion Gap 14 (5-15); BUN 17 mg/dL (4-19); BUN/Creat Ratio 24.1 RATIO (10-20); Calcium,Total 9.4 mg/dL (7.6-11.0); Carbon Dioxide 22.7 mmol/L (21.0-32.0); Chloride 99 mmol/L (98-108); Creatinine, Serum 0.71 mg/dL (0.70-1.20); EST Glomerular Filtration Rate 92 (>60); Globulin 2.7 g/dL (2.2-4.2); Glucose 105 mg/dL (70-99); Potassium 4.2 mmol/L (3.3-5.1); Sodium Level 135 mmol/L (133-145)
== END | disposition home or self-care (01) ==
LOC: MTLAB 09:19
PROVIDERS: PCP Family Medicine; Referring Provider Family Medicine; Visit Provider Family Medicine
DX: E87.1 Hypo-osmolality and hyponatremia (principal); D72.829 Elevated white blood cell count, unspecified; Z51.81 Encounter for therapeutic drug level monitoring
CPT/HCPCS: 36415; 80053; 85025

== ENCOUNTER → 2024-08-27 | Outpatient (CLI) | payer MEDICARE, SELFPAY | END | disposition home or self-care (01) | LOC: MTRAD 15:39 | PROVIDERS: PCP Family Medicine; Referring Provider Nurse Practitioner Family; Visit Provider Nurse Practitioner Family | DX: R06.02 Shortness of breath (principal) | CPT/HCPCS: 71046 ==

== ENCOUNTER → 2024-09-28 | Outpatient (CLI) | payer MEDICARE, SELFPAY ==
--- NOTE | 2024-09-28 07:05 | BI_ITS ---
EXAM: SCRN MAMM (CAD)W/WAYNE BILAT DATE: 09/28/2024 CLINICAL HISTORY: F, Age 68 y/o , SCREEN TECHNIQUE: SCRN MAMM (CAD)W/WAYNE BILAT COMPARISON: Baseline examination, no priors. FINDINGS: TISSUE DENSITY: The breasts are extremely dense, which lowers the sensitivity of mammography. The mammogram demonstrates that the patient has dense breasts. Supplemental screening with whole breast ultrasound or MRI may be considered for further evaluation. Bilateral Breast Mammographic Findings: There is a focal asymmetry with associated architectural distortion in the upper-outer left breast at middle depth. No significant masses, calcifications or other abnormalities are identified in the right breast. BI/SCRN MAMM (CAD)W/WAYNE BILAT IMPRESSION: The focal asymmetry with associated architectural distortion in the upper-outer left breast at middle depth requires further evaluation. Recommend diagnostic mammogram of the left breast and ultrasound o n the day of diagnostic if indicated. OVERALL FINAL ASSESSMENT BI-RADS 0: INCOMPLETE - NEED ADDITIONAL IMAGING EVALUATION. RECOMMENDATION: Additional Views obtained/call backs A letter with findings and recommendations will be mailed to the patient. Reading Location: [id number]
--- OUTSIDE RECORDS SUMMARY | 2024-09-28 07:07 | XMS RPT_ITS | CCD ---
Author Organization [facility] Care Team Providers Care Vulnerability Assessment Analyst Name Role Phone Unavailable Primary Care Provider Unavailabl e Jaden SHEN, Dr. Peters Primary Care Provider [phone] Jaden SHEN, Dr. Peters Attending Provider Jaden SHEN, Dr. Peters Referring Provider Suhail VENEER JOINTER OFFBEARER-C, Kylie Attending Provider [phone] Suhail VENEER JOINTER OFFBEARER-C, Kylie Referring Provider Malys, Lorraine Primary Care Unavailable Suhail, Kylie Attending Unavailable Suhail, Kylie Referring Unavailable Malys, Lorraine Referring Unavailable Malys, Lorraine Primary Care Unavailable Malys, Lorraine Attending Unavailable Malys, Lorraine Primary Care Unavailable Malys, Lorraine Attending Unavailable Malys, Lorraine Referring Unavailable Malys, Lorraine Referring Unavailable Malys, Lorraine Primary Care Unavailable Malys, Lorraine Attending Unavailable Malys, Lorraine Primary Care Unavailable Malys, Lorraine Attending Unavailable Malys, Lorraine Referring Unavailable Medications Current Medications Medication Drug Class(es) Dates Sig (Normalized) Sig (Original) acetaminophen 500 mg oral tablet (9 sources) Start: 11-01-2019 take 2 tablets by mouth every eight hours as needed for pain Acetaminophen 500 MG tablet Active 1000 mg PO EVERY 8 HOURS NEEDED as needed for Pain Or Fever November 01, 2019 12:00am Start: 11-01-2019 take 1000 mg by mout h every eight hours as needed Acetaminophen Active 1000 MG PO EVERY 8 HOURS NEEDED October 31, 2019 11:00pm Start: 10-12-2019 End: 10-16-2019 Acetaminophen SOLN 1,000 mg Start: 10-03-2019 acetaminophen (TYLENOL) tablet 650 mg acetaminophen 325 mg / HYDROcodone bitartrate 5 mg oral tablet (2 sources) Opioid Agonist Start: 10-16-2019 HYDROcodone-acetaminophen (NORCO) 5-325 MG per tablet 2 tablet albuterol 0.83 mg/ml inhalation solution (15 sources) beta2-Adren ergic Agonist Start: 11-01-2019 take 2.5 mg by inhalation every four hours Albuterol Sulfate 2.5 MG/3 ML solution for nebulization Active 2.5 mg inhalation EVERY 4 HOURS WHILE AWAKE November 01, 2019 12:00am sob Start: 10-03-2019 1.25 mg, Nebul ization, EVERY 6 HOURS PRN, Wheezing, Shortness of Breath, Starting Tue10/03/19 at 0301 Start: 10-02-2019 Albuterol Sulf ate 90 mcg/actuation HFA aerosol inhaler Active 2 NMA inhalation EVERY 4 HOURS NEEDED as needed for Shortness Of Breath October 02, 2019 12:00am Start: 10-02-2019 take 1 puff(s) by in halation every four hours as needed Albuterol Sulfate Active 2 PUFF inhalation EVERY 4 HOURS NEEDED October 01, 2019 11:00pm albuterol 0.833 mg/ml / ipratropium bromide 0.167 mg/ml inhalant solution (4 sources) Anticholinergic, beta2-Adrenergic Agonist Start: 10-03-2019 End: 10-16-2019 ipratropium-albuterol (DUONEB) nebulizer solution 1 ampule citalopram 10 mg oral tablet (7 sources) Serotonin Reuptake Inhibitor Start: 10-29-2019 take 1 tablet by mouth once daily Citalopram 10 MG tablet Active 10 mg PO DAILY October 29, 2019 12:00am depression docusate sodium 50 mg / sennosides, shelter 8.6 mg oral tablet (1 source) Start: 10-05-2019 sennosides-docusate sodium (SENOKOT-S) 8.6-50 MG tablet 2 tablet ferrous sulfate 325 mg oral tablet (7 sources) Start: 11-01-2019 take 1 tablet by mouth once daily Ferrous Sulfate 325 MG tablet Active 325 mg PO DAILY November 01, 2019 12:00am anemia folic acid 1 mg oral tablet (9 sources) Start: 10-21-2019 take 1 tablet by mouth once daily folic acid (FOLVITE) 1 MG tablet Take 1 tablet by mouth daily 30 tablet 1 10/21/2019 Active Start: 10-17-2019 take 1 tablet by kya th once daily Folic Acid 1 MG tablet Active 1 mg PO DAILY October 21, 2019 12:00am supplement glucagon (rdna) 1 mg injection (1 source) Antihypoglycemic Agent Start: 10-12-2019 glucago n (rDNA) injection 1 mg glucose 0.417 mg/mg oral gel (3 sources) Start: 10-12-2019 glucose (GLUTO SE) 40 % oral gel 15 g Start: 10-12-2019 dextrose 50 % IV solution Start: 10-12-2019 dextrose 5 % s olution 12 hr guaiFENesin 1200 mg extended release oral tablet (7 sources) Start: 11-05-2019 take 1 tablet by mouth twice daily Guaifenesin 1,200 MG tablet Active 1200 mg PO TWICE A DAY 0 November 05, 2019 12:00am insulin lispro 100 unt/ml injectable solution (4 sources) Insulin Analog Start: 10-16-2019 insulin lispro (HUMALOG) injection vial 0-3 Units Start: 10-12-2019 End: 10-14-2019 insulin lispro (HUMALOG) inj ection vial 0-3 Units LORazepam 0.5 mg oral tablet (8 sources) Benzodiazepine Start: 11-01-2019 take 1 tablet by mouth twice daily as needed for anxiety Lorazepam 0.5 MG tablet Active 0.5 mg PO TWICE DAILY NEEDED as needed for Anxiety November 01, 2019 12:00am Start: 10-12-2019 LORazepam (ATI VAN) injection 0.5 mg 5 ml metoprolol tartrate 1 mg/ml injection (1 source) beta-Adrenergic Kirt Start: 10-05-2019 metoprolol (LOPRESSOR) injection 5 mg miconazole nitrate 0.02 mg/mg topical powder (1 source) Azole Antifungal Start: 2019 miconazole (MICOTIN) 2 % powder pantoprazole 40 mg delayed release oral tablet (9 sources) Proton Pump Inhibitor Start: 11-05-2019 take 1 tablet by mouth twice daily Pantoprazole 40 MG tablet Active 40 mg PO TWICE A DAY 0 November 05, 2019 12:00am Start: 10-18-2019 take 1 tablet by kya th twice daily before mealtime pantoprazole (PROTONIX) 40 MG tablet Take 1 tablet by mouth 2 times daily (before meals) 30 tablet 1 10/20/2019 Active polyethylene glycol 3350 51352 mg powder for oral solution (1 source) Osmotic Laxative Start: 10-14-2019 polyethylene glycol (GLYCOLAX) packet 17 g microencapsulated potassium chloride 20 meq extended release oral tablet (20 sources) Start: 11-05-2019 take 2 tablets by mouth once daily at mealtime Potassium Chloride 20 MEQ tablet Active 40 meq PO DAILY WITH MEALS 0 November 05, 2019 12:00am Start: 11-05-2019 take 40 mEq by mouth once daily at mealtime Potassium Chloride Active 40 MEQ PO DAILY WITH MEALS November 04, 2019 11:00pm Start: 10-23-2019 End: 11-05-2019 take 1 tablet by mouth once daily Potassium Chloride 10 MEQ tablet Discontinued 10 meq PO DAILY November 01, 2019 8:43pm November 05, 2019 12:34pm supplement Start: 10-20-2019 End: 10-20-2019 potassium chloride (KLOR-CON M) extended release tablet 40 mEq Start: 10-16-2019 End: 10-16-2019 potassium chloride 10 mEq/10 0 mL IVPB (Peripheral Line) Start: 10-16-2019 End: 10-16-2019 potassium chloride (KLOR-CON ) packet 40 mEq Start: 10-03-2019 End: 2019 potassium chloride 10 mEq/10 0 mL IVPB (Peripheral Line) predniSONE 20 mg oral tablet (20 sources) Start: 11-05-2019 Prednisone 20 MG tablet Active 0 mg PO DAILY@0800 0 November 05, 2019 12:00am Begin taper starting with 30 mg daily. Please contact the information source for Taper Schedule details. Start: 11-05-2019 take 30 mg by mouth once daily Prednisone Active 0 MG PO DAILY@0800 November 04, 2019 11:00pm Begin taper starting with 30 mg daily. Start: 11-01-2019 End: 11-05-2019 take 2 tablets by mouth once daily Prednisone 20 MG tablet Discontinued 40 mg PO DAILY November 01, 2019 12:00am November 05, 2019 12:34pm copd Start: 11-01-2019 End: 11-05-2019 take 40 mg by mouth once daily Prednisone Discontinued 40 MG PO DAILY October 31, 2019 11:00pm November 05, 2019 11:34am Start: 10-24-2019 End: 10-27-2019 take 1 tablet by mouth once daily predniSONE (DELTASONE) 10 MG tablet Take 1 tablet by mouth daily for 3 days 3 tablet 0 10/24/2019 10/27/2019 Active Start: 10-21-2019 End: 10-24-2019 predniSONE (DELTASONE) table t 15 mg Start: 10-21-2019 End: 10-23-2019 take 1 tablet by mouth once daily Prednisone 10 MG tablet Discontinued 10 mg PO DAILY October 21, 2019 12:00am October 23, 2019 11:51am Promethazine (1 source) Phenothiazine Start: 10-03-2019 promethazine (PHENERGAN) tablet 12.5 mg QUEtiapine 25 mg oral tablet (1 source) Atypical Antipsychotic Start: 10-14-2019 QUEtiapine (SEROQUEL) tablet 25 mg thiamine 100 mg oral tablet (10 sources) Start: 10-29-2019 take 1 tablet by mouth once daily Thiamine Hcl (Vitamin B1) 100 MG tablet Active 100 mg PO DAILY October 29, 2019 12:00am supplement Start: 10-21-2019 take 1 tablet by kya th once daily vitamin B-1 100 MG tablet Take 1 tablet by mouth daily 30 tablet 1 10/21/2019 Active Start: 10-17-2019 vitamin B-1 (T HIAMINE) tablet 100 mg Start: 10-03-2019 End: 10-16-2019 thiamine (B-1) injection 100 mg traMADol hydrochloride 50 mg oral tablet (7 sources) Opioid Agonist Start: 11-01-2019 take 1 tablet by mouth every eight hours as needed for pain Tramadol 50 MG tablet Active 50 mg PO EVERY 8 HOURS NEEDED as needed for Pain Or Fever November 01, 2019 12:00am Completed/Discontinued Medications Medication Drug Class(es) Dates Sig (Normalized) Sig (Original) acetaZOLAMIDE 500 mg injection (1 source) Carbonic Anhydrase Inhibitor Start: 10-16-2019 End: 10-16-2019 acetaZOLAMIDE (DIAMOX) injection 500 mg 20 ml albumin human, shelter 250 mg/ml injection (3 sources) Human Serum Albumin Start: 10-10-2019 End: 10-10-2019 albumin human 25 % IV solution 50 g Start: 10-04-2019 End: 10-05-2019 albumin human 25 % IV soluti on 50 g ALPRAZolam 0.5 mg oral tablet (7 sources) Benzodiazepine Start: 10-23-2019 End: 11-05-2019 take 1 tablet by mouth at bedtime as needed Alprazolam 0.5 MG tablet Discontinued 0.5 mg PO AT BEDTIME NEEDED as needed for Insomnia 14 0 October 23, 2019 12:00am November 05, 2019 1:43pm amoxicillin 875 mg / clavulanate 125 mg oral tablet (7 sources) Penicillin-class Antibacterial Start: 11-05-2019 End: 11-09-2019 take 1 tablet by mouth twice daily Amoxicillin-Pot Clavulanate 875 MG tablet Discontinued 875 mg PO TWICE A DAY 4 0 November 05, 2019 12:00am November 08, 2019 12:00am November 09, 2019 12:03am X4 days ampicillin-sulbact am (UNASYN) 1.5 g IVPB minibag (1 source) Start: 10-06-2019 End: 10-07-2019 ampicillin-sulbact am (UNASYN) 1.5 g IVPB minibag ampicillin-sulbact am (UNASYN) 3 g ivpb minibag (1 source) Start: 10-07-2019 End: 2019 ampicillin-sulbact am (UNASYN) 3 g ivpb minibag aspirin 81 mg chewable tablet (7 sources) Platelet Aggregation Inhibitor, Nonsteroidal Anti-inflammatory Drug Start: 10-02-2019 End: 11-05-2019 take 1 tablet by mouth once daily Aspirin 81 MG tablet,chewable Discontinued 81 mg PO DAILY@0800 October 02, 2019 12:00am November 05, 2019 12:34pm [facility] bisacodyl 10 mg rectal suppository (3 sources) Stimulant Laxative Start: 10-11-2019 End: 10-11-2019 bisacodyl (DULCOLAX) suppository 10 mg Start: 10-04-2019 End: 2019 bisacodyl (DULCOLAX) supposi tory 10 mg bumetanide (BUMEX) 12.5 mg i n sodium chloride 0.9 % 125 mL infusion (1 source) Start: 10-15-2019 End: 10-16-2019 bumetanide (BUMEX) 12.5 mg i n sodium chloride 0.9 % 125 mL infusion calcium chloride 0.0014 meq/ ml / potassium chloride 0.004 meq/ml / sodium chloride 0.103 meq/ml / sodium lactate 0.028 meq/ml injectable solution (4 sources) Start: 10-03-2019 End: 10-05-2019 lactated ringers infusion calcium gluconate 2 g in dextrose 5 % 100 mL IVPB (4 sources) Start: 10-15-2019 End: 10-15-2019 calcium gluconate 2 g in dextrose 5 % 100 mL IVPB Start: 10-14-2019 End: 10-14-2019 calcium gluconate 2 g in dex trose 5 % 100 mL IVPB Start: 10-07-2019 End: 10-07-2019 calcium gluconate 2 g in dex trose 5 % 100 mL IVPB Start: 10-06-2019 End: 10-06-2019 calcium gluconate 2 g in dex trose 5 % 100 mL IVPB calcium gluconate 4 g in dextrose 5 % 100 mL IVPB (2 sources) Start: 10-16-2019 End: 10-16-2019 calcium gluconate 4 g in dextrose 5 % 100 mL IVPB Start: 10-03-2019 End: 10-03-2019 calcium gluconate 4 g in dex trose 5 % 100 mL IVPB cefepime (1 source) Cephalosporin Antibacterial Start: 10-09-2019 End: 10-11-2019 cefepime (MAXIPIME) 2 g IVPB extended (mini-bag) chlorhexidine gluconate 1.2 mg/ml mouthwash (1 source) Start: 10-05-2019 End: 10-09-2019 chlorhexidine (PERIDEX) 0.12 % solution 15 mL 100 ml dexmedetomidine 0.004 mg/ml injection (2 sources) Central alpha-2 Adrenergic Agonist Start: 10-13-2019 End: 10-16-2019 dexmedetomidine (PRECEDEX) 400 mcg in sodium chloride 0.9 % 100 mL infusion Start: 10-06-2019 End: 10-09-2019 dexmedetomidine (PRECEDEX) 4 00 mcg in sodium chloride 0.9 % 100 mL infusion diatrizoate meglumine-sodium (GASTROGRAFIN) 66-10 % solution 30 mL (1 source) Start: 10-06-2019 End: 10-16-2019 diatrizoate meglumine-sodium (GASTROGRAFIN) 66-10 % solution 30 mL doxycycline monohydrate 100 mg oral capsule (1 source) Tetracycline-cla ss Drug Start: 10-11-2019 End: 10-13-2019 doxycycline monohydrate (MONODOX) capsule 100 mg 2 ml fentaNYL 0.05 mg/ml injection (1 source) Opioid Agonist Start: 10-06-2019 End: 10-07-2019 fentaNYL (SUBLIMAZE) injection 50 mcg folic acid 1 mg in dextrose 5 % 50 mL IVPB (1 source) Start: 10-03-2019 End: 10-16-2019 folic acid 1 mg in dextrose 5 % 50 mL IVPB 4 ml furosemide 10 mg/ml injection (4 sources) Loop Diuretic Start: 10-13-2019 End: 10-15-2019 furosemide (LASIX) injection 40 mg Start: 10-12-2019 End: 10-12-2019 furosemide (LASIX) injection 20 mg Start: 10-10-2019 End: 10-10-2019 furosemide (LASIX) injection 20 mg 1 ml HYDROmorphone hydrochloride 1 mg/ml cartridge (4 sources) Opioid Agonist Start: 10-14-2019 End: 10-14-2019 HYDROmorphone (DILAUDID) injection 0.5 mg Start: 10-07-2019 End: 10-16-2019 HYDROmorphone (DILAUDID) inj ection 0.5 mg Start: 10-03-2019 End: 10-06-2019 HYDROmorphone (DILAUDID) inj ection 0.5 mg ketamine 50 mg/ml injectable solution (2 sources) General Anesthetic Start: 10-05-2019 End: 10-05-2019 ketamine (KETALAR) injection 150 mg Start: 10-05-2019 End: 10-05-2019 ketamine (KETALAR) 50 MG/ML injection lactulose 667 mg/ml oral solution (2 sources) Osmotic Laxative Start: 10-06-2019 End: 10-14-2019 lactulose (CHRONULAC) 10 GM/15ML solution 30 g lidocaine hydrochloride 0.02 mg/mg topical gel (2 sources) Antiarrhythmic, Amide Local Anesthetic Start: 10-03-2019 End: 10-03-2019 lidocaine (XYLOCAINE) 2 % jelly Start: 10-03-2019 lidocaine 4 % external patch 1 patch 100 ml magnesium sulfate 40 mg/ml injection (5 sources) Start: 10-16-2019 End: 10-16-2019 magnesium sulfate 4 g in 100 mL IVPB premix Start: 10-14-2019 End: 10-15-2019 magnesium sulfate 4 g in 100 mL IVPB premix Start: 10-12-2019 End: 10-12-2019 magnesium sulfate 4 g in 100 mL IVPB premix Start: 10-06-2019 End: 10-06-2019 magnesium sulfate 4 g in 100 mL IVPB premix Start: 10-03-2019 End: 10-03-2019 magnesium sulfate 2 g in 50 mL IVPB premix meropenem (1 source) Penem Antibacterial Start: 10-11-2019 End: 10-13-2019 meropenem (MERREM) 1 g IVPB extended (mini-bag) methylPREDNISolone 40 mg injection (3 sources) Corticosteroid Start: 10-17-2019 End: 10-18-2019 methylPREDNISolone sodium (SOLU-MEDROL) injection 20 mg Start: 10-10-2019 End: 10-16-2019 methylPREDNISolone sodium (S JOEL-MEDROL) injection 40 mg 100 ML metroNIDAZOLE 5 MG/ML Injection (1 source) Nitroimidazole Antimicrobial Start: 10-09-2019 End: 10-11-2019 metronidazole (FLAGYL) 500 mg in NaCl 100 mL IVPB premix 2 ml midazolam 1 mg/ml injection (1 source) Benzodiazepine Start: 10-06-2019 End: 10-07-2019 midazolam (VERSED) injection 1 mg 1 ml morphine sulfate 4 mg/ml cartridge (1 source) Opioid Agonist Start: 10-03-2019 End: 10-03-2019 take 2 mg by mouth every four hours as needed for pain 2 mg, Intravenous, EVERY 4 HOURS PRN, Pain Moderate (4-6), Pain Severe (7-10), Starting 10/03/19 at 0302 If oral and IV narcotics ordered, use oral first and only use IV if oral is ineffective or cannot take oral. D o Not give oral and IV within 1 hour of each other unless specifically ordered. omeprazole 20 mg delayed release oral capsule (7 sources) Proton Pump Inhibitor Start: 10-29-2019 End: 11-05-2019 take 1 capsule by mouth once daily Omeprazole 20 MG capsule Discontinued 20 mg PO DAILY October 29, 2019 12:00am November 05, 2019 12:34pm gerd oxymetazoline hydrochloride 0.5 mg/ml nasal spray (1 source) Start: 10-03-2019 End: 10-03-2019 oxymetazoline (AFRIN) 0.05 % nasal spray 2 spray pantoprazole (PROTONIX) 40 mg in sodium chloride 0.9 % 50 mL bolus (1 source) Start: 10-07-2019 End: 10-07-2019 pantoprazole (PROTONIX) 40 mg in sodium chloride 0.9 % 50 mL bolus pantoprazole (PROTONIX) 80 mg in sodium chloride 0.9 % 100 mL infusion (1 source) Start: 10-03-2019 End: 10-07-2019 8 mg/hr (10 mL/hr), Intravenous, at 10 mL/hr, CONTINUOUS, Starting 10/03/19 at 1115 phytonadione (ADULT) (VITAMIN K) 5 mg in dextrose 5 % 100 mL IVPB (1 source) Start: 10-10-2019 End: 10-10-2019 phytonadione (ADULT) (VITAMIN K) 5 mg in dextrose 5 % 100 mL IVPB piperacillin 3000 mg / tazobactam 375 mg injection (4 sources) Penicillin-class Antibacterial, beta Lactamase Inhibitor Start: 10-09-2019 End: 10-09-2019 piperacillin-tazob actam (ZOSYN) 3.375 g in dextrose 50 mL IVPB extended infusion (premix) Start: 2019 End: 10-09-2019 piperacillin-tazobactam (ZOS YN) 4.5 g in dextrose 100 mL IVPB extended infusion (premix) Start: 10-03-2019 End: 10-06-2019 piperacillin-tazobactam (ZOS YN) 4.5 g in dextrose 100 mL IVPB extended infusion (premix) potassium phosphate 20 mmol in dextrose 5 % 250 mL IVPB (4 sources) Start: 10-16-2019 End: 10-16-2019 potassium phosphate 20 mmol in dextrose 5 % 250 mL IVPB Start: 10-14-2019 End: 10-14-2019 potassium phosphate 20 mmol in dextrose 5 % 250 mL IVPB Start: 10-14-2019 End: 10-14-2019 potassium phosphate 20 mmol in dextrose 5 % 250 mL IVPB Start: 2019 End: 2019 potassium phosphate 20 mmol in dextrose 5 % 250 mL IVPB potassium phosphate 30 mmol in dextrose 5 % 250 mL IVPB (1 source) Start: 10-12-2019 End: 10-12-2019 potassium phosphate 30 mmol in dextrose 5 % 250 mL IVPB potassium phosphate 40 mmol in dextrose 5 % 500 mL IVPB (2 sources) Start: 10-13-2019 End: 10-13-2019 potassium phosphate 40 mmol in dextrose 5 % 500 mL IVPB Start: 10-12-2019 End: 10-12-2019 potassium phosphate 40 mmol in dextrose 5 % 500 mL IVPB 100 ml propofol 10 mg/ml injection (3 sources) General Anesthetic Start: 10-05-2019 End: 10-05-2019 propofol injection 30 mg Start: 10-05-2019 End: 10-05-2019 propofol 200 MG/20ML injecti on Start: 10-05-2019 End: 10-05-2019 propofol injection 50 mg regular insulin, human 100 unt/ml injectable solution (3 sources) Insulin Start: 10-14-2019 End: 10-16-2019 insulin regular (HUMULIN R;NOVOLIN R) injection 0-18 Units sodium bicarbonate 75 mEq in dextrose 5 % and 0.45 % NaCl 1,000 mL infusion (1 source) Start: 10-04-2019 End: 10-05-2019 sodium bicarbonate 75 mEq in dextrose 5 % and 0.45 % NaCl 1,000 mL infusion sodium bicarbonate 75 mEq in lactated ringers 1,000 mL infusion (1 source) Start: 10-03-2019 End: 10-04-2019 sodium bicarbonate 75 mEq in lactated ringers 1,000 mL infusion 50 ml sodium chloride 9 mg/m l injection (12 sources) Start: 10-16-2019 End: 10-16-2019 0.9 % sodium chloride bolus Start: 10-13-2019 End: 10-13-2019 0.9 % sodium chloride bolus Start: 10-10-2019 sodium chlorid e (Inhalant) 3 % nebulizer solution 4 mL Start: 10-10-2019 End: 10-12-2019 0.9 % sodium chloride infusi on Start: 10-05-2019 End: 10-05-2019 0.9 % sodium chloride bolus Start: 10-03-2019 End: 10-07-2019 sodium chloride flush 0.9 % injection 10 mL Start: 10-03-2019 End: 10-03-2019 0.9 % sodium chloride bolus Start: 10-03-2019 End: 10-03-2019 10 mL, Intravenous, EVERY 12 HOURS SCHEDULED (2 times per day), First dose on Tue10/03/19 at 0900 Start: 10-03-2019 End: 10-03-2019 20 mL (0.383 mL/kg), Intrave nous, at 10 mL/hr, Administer over 2 Hours, ONCE, Tue10/03/19 at 0330, For 1 dose For use in priming line prior to transfusion. Infuse at 20mL/hr during transfusion and stop after transfusion is completed. Start: 10-03-2019 End: 10-03-2019 Intravenous, at 100 mL/hr, C ONTINUOUS, Starting Tue10/03/19 at 0330 sodium phosphate 30 mmol in dextrose 5 % 250 mL IVPB (1 source) Start: 10-06-2019 End: 10-06-2019 sodium phosphate 30 mmol in dextrose 5 % 250 mL IVPB vancomycin 125 mg oral capsule (4 sources) Glycopeptide Antibacterial Start: 10-11-2019 End: 10-11-2019 vancomycin (VANCOCIN) oral solution 125 mg Start: 10-09-2019 End: 10-09-2019 vancomycin (VANCOCIN) oral s olution 125 mg Start: 10-03-2019 End: 10-06-2019 vancomycin (VANCOCIN) 1000 m g in dextrose 5% 200 mL IVPB Problems Problem Classification Problem Date Documented Da te Episodic/Chronic Acute and unspecified renal failure (2 sources) Acute injury of kidney; Translations: [LORENZO (acute kidney injury)] 10-15-2019 Acute posthemorrhagic anemia (7 sources) Acute posthemorrhagic anemia; Translations: [Acute posthemorrhagic anemia] 10-31-2019 Episodic Alcohol-related disorders (9 sources) Alcohol abuse; Translations: [Alcohol abuse, uncomplicated] 10-15-2019 Chronic Anxiety disorders (7 sources) Mixed anxiety and depressive disorder; Translations: [Anxiety disorder, unspecified] 11-05-2019 Chronic Attention-deficit conduct and disruptive behavior disorders (2 sources) Self-neglect; Translations: [Self neglect] 10-15-2019 Episodic Chronic obstructive pulmonary disease and bronchiectasis (20 sources) Acute exacerbation of chronic obstructive airways disease; Translations: [Chronic obstructive lung disease] Onset: 0 10-17-2019 Chronic Deficiency and other anemia (7 sources) Iron deficiency anemia due to blood loss; Translations: [Iron deficiency anemia secondary to blood loss (chronic)] 11-05-2019 Chronic Deficiency and other anemia (7 sources) Anemia due to blood loss; Translations: [Iron deficiency anemia secondary to blood loss (chronic)] 10-04-2019 Chronic Deficiency and other anemia (7 sources) Anemia; Translations: [Anemia, unspecified] 11-01-2019 Episodic Diseases of white blood cells (16 sources) Leukocytosis; Translations: [Elevated white blood cell count, unspecified] 10-15-2019 Chronic Fluid and electrolyte disorders (15 sources) Hypokalemia; Translations: [Hypokalemia] Onset: 5 10-04-2019 Episodic Gastrointestinal hemorrhage (9 sources) Gastrointestinal hemorrhage; Translations: [Upper gastrointestinal bleeding] Onset: 0 10-03-2019 Episodic Intestinal obstruction without hernia (2 sources) Intestinal obstruction co-occurrent and due to decreased peristalsis; Translations: [Ileus (HCC)] 10-18-2019 Episodic Malaise and fatigue (9 sources) Asthenia; Translations: [Weakness] 10-15-2019 Episodic Neoplasms of unspecified nature or uncertain behavior (7 sources) Thrombocytosis; Translations: [Thrombocythemia] 10-29-2019 Episodic Noninfectious gastroenteritis (2 sources) Colitis; Translations: [Colitis] 10-15-2019 Episodic Nutritional deficiencies (7 sources) Deficiency of macronutrients; Translations: [Unspecified severe protein-calorie malnutrition] 10-03-2019 Chronic Nutritional deficiencies (2 sources) Deficiency of macronutrients; Translations: [Severe protein-calorie malnutrition] 10-15-2019 Episodic Other gastrointestinal disorders (7 sources) Occult blood in stools; Translations: [Other fecal abnormalities] 10-31-2019 Episodic Other lower respiratory disease (1 source) Shortness of breath; Translations: [Shortness of breath] Onset: 5 Episodic Other screening for suspected conditions (not mental disorders or infectious disease) (4 sources) Serum creatinine raised; Translations: [Encounter for screening mammogram for malignant neoplasm of breast] Onset: 0 10-03-2019 Episodic Pleurisy; pneumothorax; pulmonary collapse (2 sources) Bilateral pleural effusion; Translations: [Bilateral pleural effusion] 10-17-2019 Episodic Pneumonia (except that caused by tuberculosis or sexually transmitted disease) (7 sources) Pneumonia; Translations: [Pneumonia, unspecified organism] 11-05-2019 Episodic Residual codes; unclassified (2 sources) Restlessness and agitation; Translations: [Agitation] 10-15-2019 Chronic Residual codes; unclassified (2 sources) Tobacco user; Translations: [Tobacco abuse] Onset: 0 10-03-2019 Chronic Residual codes; unclassified (2 sources) Current drinker; Translations: [Chronic alcohol use] Onset: 0 10-03-2019 Episodic Residual codes; unclassified (7 sources) Tobacco use and exposure - finding; Translations: [Tobacco use] 10-03-2019 Episodic Respiratory failure; insufficiency; arrest (adult) (16 sources) Acute respiratory failure; Translations: [Acute respiratory failure with hypoxia] Onset: 0 10-03-2019 Episodic Septicemia (except in labor) (9 sources) Sepsis; Translations: [Sepsis, unspecified organism] Onset: 0 10-03-2019 Episodic Shock (2 sources) Shock; Translations: [Shock (HCC)] 10-03-2019 Episodic Spondylosis; intervertebral disc disorders; other back problems (10 sources) Acute thoracic back pain; Translations: [Backache] Onset: 0 10-03-2019 Episodic Unclassified (4 sources) Patient encounter status; Translations: [Palliative care encounter] 10-15-2019 Results Test Name Value Interpretation Reference Range Facility Chest PA and Lateralon 08-27 Chest PA and Lateral [facility] Imaging Services [address], [place] [address] Chest PA and Lateral MR#: [id number] Acct: [id number] Name: DORY BASURTO Rep #: [id number] : [id number] F [id number] From: Christie Valdovinos PCP: Dr. Lorraine Stanley, DO Status: REG CLI Study: Chest PA and Lateral Date of Exam: 08/27/24 Exam# [id number] Ordering Dr: Kylie Jang VENEER JOINTER OFFBEARER-C PROCEDURE: CHEST PA AND LATERAL 08/27/2024 REASON FOR EXAM: RULE OUT PNEUMONIA, SHORTNESS OF BREATH TECHNIQUE: CHEST PA AND LATERAL COMPARISON: CT from 12/02/2023 FINDINGS: No focal consolidation. No pleural effusion or pneumothorax. Cardiac silhouette is within normal limits. Stable severe compression deformity of T6 vertebral body. No new acute fractures. RAD/Chest PA and Lateral IMPRESSION: No focal consolidation. Reading Location: [facility] CC: YEN Jang; Dr. Lorraine Stanley, Marine Services Technician: Signed Normal [facility] Absolute lymphocyte countOrd ered By: Lorraine Stanley on 08-02-2024 Lymphocytes Auto (Unsp spec) [#/Vol] 2.34 10*3/uL 0.83-4.51 [facility] Absolute neutrophil countOrd ered By: Lorraine Stanley on 08-02-2024 Neutrophils (Bld) [#/Vol] 6.8 10*3/uL 2.0-7.7 [facility] Anion gap in Serum or Plasma Ordered By: Lorraine Stanley on 08-02-2024 Anion gap [Moles/Vol] 14 mmol/L 5-15 [facility] Automated lymphocyte count a s percentage of total leukocytesOrdered By: Lorraine Stanley on 08-02-2024 Lymphocytes/100 WBC Auto (Unsp spec) 23.1 % 19-41 [facility] BUN/creatinine ratioOrdered By: Lorraine Stanley on 08-02-2024 Urea nitrogen/Creatinine [Mass ratio] 24.1 mg/mg High 10-20 [facility] Basophil percentageOrdered B y: Lorraine Stanley on 08-02-2024 Basophils/100 WBC (Bld) 0.3 % 0-1 [facility] Bilirubin, totalOrdered By: Lorraine Stanley on 08-02-2024 Bilirubin [Mass/Vol] 0.20 mg/dL 0.00-1.30 [facility] CBC W/Diff, Automatedon 07-22 Absolute Lymph 2.34 X10 3/uL Normal 0.83-4.51 [facility] Comment on above: Performed By: #### L 500.4050, L100.0100 #### [facility] [address] [place], [address] Absolute Neut 6.8 X10 3/uL Normal 2.0-7.7 [facility] Comment on above: Performed By: #### L 500.4050, L100.0100 #### [facility] [address] [place], [address] Basophils/100 WBC (Bld) 0.3 % Normal 0-1 [facility] Comment on above: Performed By: #### L 500.4050, L100.0100 #### [facility] [address] [place], [address] Eosinophils/100 WBC (Bld) 1.5 % Normal 0-5 [facility] Comment on above: Performed By: #### L 500.4050, L100.0100 #### [facility] [address] [place], [address] Erythrocyte distribution width (RBC) [Ratio] 18.9 % High 11.6-14.6 [facility] Comment on above: Performed By: #### L 500.4050, L100.0100 #### [facility] [address] [place], [address] Hematocrit (Bld) [Volume fraction] 33.4 % Low 37-47 [facility] Comment on above: Performed By: #### L 500.4050, L100.0100 #### [facility] [address] [place], [address] Hemoglobin (Bld) [Mass/Vol] 11.2 g/dL Low 12.0-15.0 [facility] Comment on above: Performed By: #### L 500.4050, L100.0100 #### [facility] [address] [place], [address] IG% 0.400 Normal 0.0-0.9 [facility] Comment on above: Result Comment: IG% - Immature Granulocytes (promyelocytes, myelocytes and metamyelocytes) > 1% indicates that a LEFT SHIFT is Present. Performed By: #### L 500.4050, L100.0100 #### [facility] [address] [place], [address] Lymphocytes/100 WBC (Bld) 23.1 % Normal 19-41 [facility] Comment on above: Performed By: #### L 500.4050, L100.0100 #### [facility] [address] [place], [address] MCH (RBC) [Entitic mass] 26.9 pg Low 27.0-32.0 [facility] Comment on above: Performed By: #### L 500.4050, L100.0100 #### [facility] [address] [place], [address] MCHC (RBC) [Mass/Vol] 33.5 g/dL Normal 32-36 [facility] Comment on above: Performed By: #### L 500.4050, L100.0100 #### [facility] [address] [place], [address] MCV (RBC) [Entitic vol] 80.3 fL Low 81-99 [facility] Comment on above: Performed By: #### L 500.4050, L100.0100 #### [facility] [address] [place], [address] Monocytes/100 WBC (Bld) 7.6 % Normal 0-10 [facility] Comment on above: Performed By: #### L 500.4050, L100.0100 #### [facility] [address] [place], [address] Neutrophils/100 WBC (Bld) 67.1 % Normal 47-70 [facility] Comment on above: Performed By: #### L 500.4050, L100.0100 #### [facility] [address] [place], [address] Nucleated RBC (Bld) [#/Vol] 0 10*3/uL Normal 0-5 [facility] Comment on above: Performed By: #### L 500.4050, L100.0100 #### [facility] [address] [place], [address] Platelet mean volume (Bld) [Entitic vol] 10.1 fL Normal 6.2-12.0 [facility] Comment on above: Performed By: #### L 500.4050, L100.0100 #### [facility] [address] [place], [address] Platelets (Bld) [#/Vol] 378 10*3/uL Normal 150-450 [facility] Comment on above: Performed By: #### L 500.4050, L100.0100 #### [facility] [address] [place], [address] RBC (Bld) [#/Vol] 4.16 10*6/uL Low 4.2-5.4 [facility] Comment on above: Performed By: #### L 500.4050, L100.0100 #### [facility] [address] [place], [address] RDW SD 54.4 fl High 35.1-43.9 [facility] Comment on above: Performed By: #### L 500.4050, L100.0100 #### [facility] [address] [place], [address] WBC (Bld) [#/Vol] 10.1 10*3/uL Normal 4.4-11.0 [facility] Comment on above: Performed By: #### L 500.4050, L100.0100 #### [facility] [address] [place], [address] Carbon dioxide, total [Moles /volume] in Central venous bloodOrdered By: Lorraine Stanley on 08-02-2024 CO2 [Moles/Vol] 22.7 mmol/L 21.0-32.0 [facility] Chloride assayOrdered By: Erica Stanley on 08-02-2024 Chloride [Moles/Vol] 99 mmol/L 98-108 [facility] Comprehensive Metabolic Prof ilon 08-02-2024 Albumin [Mass/Vol] 4.3 g/dL Normal 3.4-4.8 [facility] Comment on above: Performed By: #### L 500.4050, L100.0100 #### [facility] [address] [place], [address] Albumin/Globulin [Mass ratio] 1.6 {ratio} Normal 0.9-2.4 [facility] Comment on above: Performed By: #### L 500.4050, L100.0100 #### [facility] [address] [place], [address] ALK PHOS 54 U/L Normal 35-104 [facility] Comment on above: Performed By: #### L 500.4050, L100.0100 #### [facility] [address] [place], [address] ALT [Catalytic activity/Vol] 10 U/L Normal <=34 [facility] Comment on above: Performed By: #### L 500.4050, L100.0100 #### [facility] [address] [place], [address] AST [Catalytic activity/Vol] 17 U/L Normal <=31 [facility] Comment on above: Performed By: #### L 500.4050, L100.0100 #### [facility] [address] [place], [address] Bilirubin [Mass/Vol] 0.20 mg/dL Normal 0.00-1.30 [facility] Comment on above: Performed By: #### L 500.4050, L100.0100 #### [facility] [address] [place], [address] BUN/CRE 24.1 RATIO High 10-20 [facility] Comment on above: Performed By: #### L 500.4050, L100.0100 #### [facility] [address] [place], [address] Calcium [Mass/Vol] 9.4 mg/dL Normal 7.6-11.0 [facility] Comment on above: Performed By: #### L 500.4050, L100.0100 #### [facility] [address] [place], [address] Chloride [Moles/Vol] 99 mmol/L Normal 98-108 [facility] Comment on above: Performed By: #### L 500.4050, L100.0100 #### [facility] [address] [place], [address] CO2 [Moles/Vol] 22.7 mmol/L Normal 21.0-32.0 [facility] Comment on above: Performed By: #### L 500.4050, L100.0100 #### [facility] [address] [place], [address] Creatinine [Mass/Vol] 0.71 mg/dL Normal 0.70-1.20 [facility] Comment on above: Performed By: #### L 500.4050, L100.0100 #### [facility] [address] [place], [address] GAP 14 Normal 5-15 [facility] Comment on above: Performed By: #### L 500.4050, L100.0100 #### [facility] [address] [place], [address] GFR/1.73 sq M.predicted among non-blacks MDRD (S/P/Bld) [Vol rate/Area] 92 mL/min/{1.73_m2} Normal >60 [facility] Comment on above: Result Comment: mL/m in/1.73m2 CKD-EPI Creatinine Equation (2020) Performed By: #### L 500.4050, L100.0100 #### [facility] [address] [place], [address] Globulin (S) [Mass/Vol] 2.7 g/dL Normal 2.2-4.2 [facility] Comment on above: Performed By: #### L 500.4050, L100.0100 #### [facility] [address] [place], [address] Glucose [Mass/Vol] 105 mg/dL High 70-99 [facility] Comment on above: Performed By: #### L 500.4050, L100.0100 #### [facility] [address] [place], [address] Potassium [Moles/Vol] 4.2 mmol/L Normal 3.3-5.1 [facility] Comment on above: Performed By: #### L 500.4050, L100.0100 #### [facility] [address] [place], [address] Sodium [Moles/Vol] 135 mmol/L Normal 133-145 [facility] Comment on above: Performed By: #### L 500.4050, L100.0100 #### [facility] [address] [place], [address] T PROT 7.0 g/dL Normal 5.9-8.4 [facility] Comment on above: Performed By: #### L 500.4050, L100.0100 #### [facility] [address] [place], [address] Urea nitrogen [Mass/Vol] 17 mg/dL Normal 4-19 [facility] Comment on above: Performed By: #### L 500.4050, L100.0100 #### [facility] [address] [place], [address] Eosinophil percentageOrdered By: Lorraine Stanley on 08-02-2024 Eosinophils/100 WBC (Bld) 1.5 % 0-5 [facility] Erythrocyte distribution wid th ratioOrdered By: Lorraine Stanley on 08-02-2024 Erythrocyte distribution width (RBC) [Ratio] 18.9 % High 11.6-14.6 [facility] Erythrocyte distribution wid th standard deviationOrdered By: Lorraine Stanley on 08-02-2024 Erythrocyte distribution width (RBC) [Ratio] 54.4 fl High 35.1-43.9 [facility] Glomerular filtration rate ( GFR) estimation/1.73 sq m using serum, plasma, or whole bOrdered By: Lorraine Stanley on 08-02-2024 GFR/1.73 sq M.predicted among non-blacks MDRD (S/P/Bld) [Vol rate/Area] 92 mL/min/{1.73_m2} >60 [facility] Comment on above: mL/min/1.73m2 CKD-EP I Creatinine Equation (2020) Hematocrit Auto (Bld) [Volum e fraction]Ordered By: Lorraine Stanley on 08-02-2024 Hematocrit (Bld) [Volume fraction] 33.4 % Low 37-47 [facility] Hemoglobin measurementOrdere d By: Lorraine Stanley on 08-02-2024 Hemoglobin (Bld) [Mass/Vol] 11.2 g/dL Low 12.0-15.0 [facility] Immature granulocytes/100 WB C Auto (Bld)Ordered By: Lorraine Stanley on 08-02-2024 Immature granulocytes/100 WBC (Bld) 0.400 % 0.0-0.9 [facility] Comment on above: IG% - Immature Granu locytes (promyelocytes, myelocytes and metamyelocytes) > 1% indicates that a LEFT SHIFT is Present. Laboratory - Chemistry and C hemistry - challengeOrdered By: Lorraine Stanley on 08-02-2024 AST [Catalytic activity/Vol] 17 U/L <32 [facility] MCV (mean corpuscular volume ) determinationOrdered By: Lorraine Stanley on 08-02-2024 MCV (RBC) [Entitic vol] 80.3 fL Low 81-99 [facility] Mean corpuscular hemoglobin (MCH) determinationOrdered By: Lorraine Stanley on 08-02-2024 MCH (RBC) [Entitic mass] 26.9 pg Low 27.0-32.0 [facility] Mean corpuscular hemoglobin concentration (MCHC) determinationOrdered By: Lorraine Stanley on 08-02-2024 MCHC (RBC) [Mass/Vol] 33.5 g/dL 32-36 [facility] Mean platelet volume determi nationOrdered By: Lorraine Stanley on 08-02-2024 Platelet mean volume (Bld) [Entitic vol] 10.1 fL 6.2-12.0 [facility] Monocyte percentageOrdered B y: Lorraine Stanley on 08-02-2024 Monocytes/100 WBC (Bld) 7.6 % 0-10 [facility] Neutrophil percentageOrdered By: Lorraine Stanley on 08-02-2024 Neutrophils/100 WBC (Bld) 67.1 % 47-70 [facility] Nucleated red blood cell per centageOrdered By: Lorraine Stanley on 08-02-2024 Nucleated RBC/100 WBC (Bld) [Ratio] 0 % 0-5 [facility] Platelet countOrdered By: Erica Stanley on 08-02-2024 Platelets (Bld) [#/Vol] 378 10*3/uL 150-450 [facility] Potassium measurement (mass/ volume)Ordered By: Lorraine Stanley on 08-02-2024 Potassium (Unsp spec) [Mass/Vol] 4.2 mmol/L 3.3-5.1 [facility] RBC Auto (Bld) [#/Vol]Ordere d By: Lorraine Stanley on 08-02-2024 RBC (Bld) [#/Vol] 4.16 10*6/uL Low 4.2-5.4 [facility] Serum creatinine measurement (mass/volume)Ordered By: Lorraine Stanley on 08-02-2024 Creatinine [Mass/Vol] 0.71 mg/dL 0.70-1.20 [facility] Serum globulin measurementOr dered By: Lorraine Stanley on 08-02-2024 Globulin (S) [Mass/Vol] 2.7 g/dL 2.2-4.2 [facility] Serum glucose measurement (m ass/volume)Ordered By: Lorraine Stanley on 08-02-2024 Glucose [Mass/Vol] 105 mg/dL High 70-99 [facility] Serum or plasma alanine weston otransferase (ALT) measurementOrdered By: Lorraine Stanley on 08-02-2024 ALT [Catalytic activity/Vol] 10 U/L <35 [facility] Serum or plasma albumin mohan urement (mass/volume)Ordered By: Lorraine Stanley on 08-02-2024 Albumin [Mass/Vol] 4.3 g/dL 3.4-4.8 [facility] Serum or plasma albumin/glob ulin mass ratioOrdered By: Lorraine Stanley on 08-02-2024 Albumin/Globulin [Mass ratio] 1.6 {ratio} 0.9-2.4 [facility] Serum or plasma alkaline suni sphatase measurementOrdered By: Lorraine Stanley on 08-02-2024 ALP [Catalytic activity/Vol] 54 U/L 35-104 [facility] Serum or plasma calcium mohan urement (mass/volume)Ordered By: Lorraine Stanley on 08-02-2024 Calcium [Mass/Vol] 9.4 mg/dL 7.6-11.0 [facility] Serum or plasma urea nitroge n measurement (mass/volume)Ordered By: Lorraine Stanley on 08-02-2024 Urea nitrogen [Mass/Vol] 17 mg/dL 4-19 [facility] Sodium levelOrdered By: Lorraine Stanley on 08-02-2024 Sodium [Moles/Vol] 135 mmol/L 133-145 [facility] Total proteinOrdered By: Ann-Marie Stanley on 08-02-2024 Protein [Mass/Vol] 7.0 g/dL 5.9-8.4 [facility] White blood cell (WBC) count Ordered By: Lorraine Stanley on 08-02-2024 WBC (Bld) [#/Vol] 10.1 10*3/uL 4.4-11.0 [facility] Absolute lymphocyte countOrd ered By: Lorraine Stanley on 06-29-2024 Lymphocytes Auto (Unsp spec) [#/Vol] 3.12 10*3/uL 0.83-4.51 [facility] Absolute neutrophil countOrd ered By: Lorraine Stanley on 06-29-2024 Neutrophils (Bld) [#/Vol] 13.2 10*3/uL High 2.0-7.7 [facility] Anion gap in Serum or Plasma Ordered By: Lorraine Stanley on 06-29-2024 Anion gap [Moles/Vol] 12 mmol/L 5-15 [facility] Automated lymphocyte count a s percentage of total leukocytesOrdered By: Lorraine Akhilcinthia on 06-29-2024 Lymphocytes/100 WBC Auto (Unsp spec) 17.5 % Low 19-41 [facility] BUN/creatinine ratioOrdered By: Lorraine Stanley on 06-29-2024 Urea nitrogen/Creatinine [Mass ratio] 19.6 mg/mg 10-20 [facility] Basophil percentageOrdered B y: Lorraine Akhilcinthia on 06-29-2024 Basophils/100 WBC (Bld) 0.2 % 0-1 [facility] Bilirubin, totalOrdered By: Lorraine Akhilcinthia on 06-29-2024 Bilirubin [Mass/Vol] 0.25 mg/dL 0.00-1.30 [facility] CBC W/Diff, Automatedon Absolute Lymph 3.12 X10 3/uL Normal 0.83-4.51 [facility] Comment on above: Performed By: #### L 506.1001, L500.4050, L100.0100 #### [facility] [address] [place], [address] Absolute Neut 13.2 X10 3/uL High 2.0-7.7 [facility] Comment on above: Performed By: #### L 506.1001, L500.4050, L100.0100 #### [facility] [address] [place], [address] Basophils/100 WBC (Bld) 0.2 % Normal 0-1 [facility] Comment on above: Performed By: #### L 506.1001, L500.4050, L100.0100 #### [facility] [address] [place], [address] Eosinophils/100 WBC (Bld) 0.2 % Normal 0-5 [facility] Comment on above: Performed By: #### L 506.1001, L500.4050, L100.0100 #### [facility] [address] [place], [address] Erythrocyte distribution width (RBC) [Ratio] 16.6 % High 11.6-14.6 [facility] Comment on above: Performed By: #### L 506.1001, L500.4050, L100.0100 #### [facility] [address] [place], [address] Hematocrit (Bld) [Volume fraction] 35.2 % Low 37-47 [facility] Comment on above: Performed By: #### L 506.1001, L500.4050, L100.0100 #### [facility] [address] [place], [address] Hemoglobin (Bld) [Mass/Vol] 11.7 g/dL Low 12.0-15.0 [facility] Comment on above: Performed By: #### L 506.1001, L500.4050, L100.0100 #### [facility] [address] [place], [address] IG% 0.400 Normal 0.0-0.9 [facility] Comment on above: Result Comment: IG% - Immature Granulocytes (promyelocytes, myelocytes and metamyelocytes) > 1% indicates that a LEFT SHIFT is Present. Performed By: #### L 506.1001, L500.4050, L100.0100 #### [facility] [address] [place], [address] Lymphocytes/100 WBC (Bld) 17.5 % Low 19-41 [facility] Comment on above: Performed By: #### L 506.1001, L500.4050, L100.0100 #### [facility] [address] [place], [address] MCH (RBC) [Entitic mass] 25.7 pg Low 27.0-32.0 [facility] Comment on above: Performed By: #### L 506.1001, L500.4050, L100.0100 #### [facility] [address] [place], [address] MCHC (RBC) [Mass/Vol] 33.2 g/dL Normal 32-36 [facility] Comment on above: Performed By: #### L 506.1001, L500.4050, L100.0100 #### [facility] [address] [place], [address] MCV (RBC) [Entitic vol] 77.4 fL Low 81-99 [facility] Comment on above: Performed By: #### L 506.1001, L500.4050, L100.0100 #### [facility] [address] [place], [address] Monocytes/100 WBC (Bld) 7.7 % Normal 0-10 [facility] Comment on above: Performed By: #### L 506.1001, L500.4050, L100.0100 #### [facility] [address] [place], [address] Neutrophils/100 WBC (Bld) 74.0 % High 47-70 [facility] Comment on above: Performed By: #### L 506.1001, L500.4050, L100.0100 #### [facility] [address] [place], [address] Nucleated RBC (Bld) [#/Vol] 0 10*3/uL Normal 0-5 [facility] Comment on above: Performed By: #### L 506.1001, L500.4050, L100.0100 #### [facility] [address] [place], [address] Platelet mean volume (Bld) [Entitic vol] 9.5 fL Normal 6.2-12.0 [facility] Comment on above: Performed By: #### L 506.1001, L500.4050, L100.0100 #### [facility] [address] [place], [address] Platelets (Bld) [#/Vol] 440 10*3/uL Normal 150-450 [facility] Comment on above: Performed By: #### L 506.1001, L500.4050, L100.0100 #### [facility] [address] [place], [address] RBC (Bld) [#/Vol] 4.55 10*6/uL Normal 4.2-5.4 [facility] Comment on above: Performed By: #### L 506.1001, L500.4050, L100.0100 #### [facility] [address] [place], [address] RDW SD 46.0 fl High 35.1-43.9 [facility] Comment on above: Performed By: #### L 506.1001, L500.4050, L100.0100 #### [facility] [address] [place], [address] WBC (Bld) [#/Vol] 17.8 10*3/uL High 4.4-11.0 [facility] Comment on above: Performed By: #### L 506.1001, L500.4050, L100.0100 #### [facility] [address] [place], [address] Carbon dioxide, total [Moles /volume] in Central venous bloodOrdered By: Lorraine Stanley on 06-29-2024 CO2 [Moles/Vol] 23.2 mmol/L 21.0-32.0 [facility] Chloride assayOrdered By: Erica Stanley on 06-29-2024 Chloride [Moles/Vol] 93 mmol/L Low 98-108 [facility] Comprehensive Metabolic Prof ilon 06-29-2024 Albumin [Mass/Vol] 4.6 g/dL Normal 3.4-4.8 [facility] Comment on above: Performed By: #### L 506.1001, L500.4050, L100.0100 #### [facility] [address] [place], [address] Albumin/Globulin [Mass ratio] 1.5 {ratio} Normal 0.9-2.4 [facility] Comment on above: Performed By: #### L 506.1001, L500.4050, L100.0100 #### [facility] [address] [place], [address] ALK PHOS 53 U/L Normal 35-104 [facility] Comment on above: Performed By: #### L 506.1001, L500.4050, L100.0100 #### [facility] [address] [place], [address] ALT [Catalytic activity/Vol] 17 U/L Normal <=34 [facility] Comment on above: Performed By: #### L 506.1001, L500.4050, L100.0100 #### [facility] [address] [place], [address] AST [Catalytic activity/Vol] 20 U/L Normal <=31 [facility] Comment on above: Performed By: #### L 506.1001, L500.4050, L100.0100 #### [facility] [address] [place], [address] Bilirubin [Mass/Vol] 0.25 mg/dL Normal 0.00-1.30 [facility] Comment on above: Performed By: #### L 506.1001, L500.4050, L100.0100 #### [facility] [address] [place], [address] BUN/CRE 19.6 RATIO Normal 10-20 [facility] Comment on above: Performed By: #### L 506.1001, L500.4050, L100.0100 #### [facility] [address] [place], [address] Calcium [Mass/Vol] 9.9 mg/dL Normal 7.6-11.0 [facility] Comment on above: Performed By: #### L 506.1001, L500.4050, L100.0100 #### [facility] [address] [place], [address] Chloride [Moles/Vol] 93 mmol/L Low 98-108 [facility] Comment on above: Performed By: #### L 506.1001, L500.4050, L100.0100 #### [facility] [address] [place], [address] CO2 [Moles/Vol] 23.2 mmol/L Normal 21.0-32.0 [facility] Comment on above: Performed By: #### L 506.1001, L500.4050, L100.0100 #### [facility] [address] [place], [address] Creatinine [Mass/Vol] 0.78 mg/dL Normal 0.70-1.20 [facility] Comment on above: Performed By: #### L 506.1001, L500.4050, L100.0100 #### [facility] [address] [place], [address] GAP 12 Normal 5-15 [facility] Comment on above: Performed By: #### L 506.1001, L500.4050, L100.0100 #### [facility] [address] [place], [address] GFR/1.73 sq M.predicted among non-blacks MDRD (S/P/Bld) [Vol rate/Area] 83 mL/min/{1.73_m2} Normal >60 [facility] Comment on above: Result Comment: mL/m in/1.73m2 CKD-EPI Creatinine Equation (2020) Performed By: #### L 506.1001, L500.4050, L100.0100 #### [facility] [address] [place], [address] Globulin (S) [Mass/Vol] 3.1 g/dL Normal 2.2-4.2 [facility] Comment on above: Performed By: #### L 506.1001, L500.4050, L100.0100 #### [facility] [address] [place], [address] Glucose [Mass/Vol] 107 mg/dL High 70-99 [facility] Comment on above: Performed By: #### L 506.1001, L500.4050, L100.0100 #### [facility] [address] [place], [address] Potassium [Moles/Vol] 4.1 mmol/L Normal 3.3-5.1 [facility] Comment on above: Performed By: #### L 506.1001, L500.4050, L100.0100 #### [facility] [address] [place], [address] Sodium [Moles/Vol] 129 mmol/L Low 133-145 [facility] Comment on above: Performed By: #### L 506.1001, L500.4050, L100.0100 #### [facility] [address] [place], [address] T PROT 7.7 g/dL Normal 5.9-8.4 [facility] Comment on above: Performed By: #### L 506.1001, L500.4050, L100.0100 #### [facility] [address] [place], [place], [address] Urea nitrogen [Mass/Vol] 15 mg/dL Normal 4-19 [facility] Comment on above: Performed By: #### L 506.1001, L500.4050, L100.0100 #### [facility] [address] [place], [address] Eosinophil percentageOrdered By: Lorraine Stanley on 06-29-2024 Eosinophils/100 WBC (Bld) 0.2 % 0-5 [facility] Erythrocyte distribution wid th ratioOrdered By: Lorraine Stanley on 06-29-2024 Erythrocyte distribution width (RBC) [Ratio] 16.6 % High 11.6-14.6 [facility] Erythrocyte distribution wid th standard deviationOrdered By: Lorraine Stanley on 06-29-2024 Erythrocyte distribution width (RBC) [Ratio] 46.0 fl High 35.1-43.9 [facility] Glomerular filtration rate ( GFR) estimation/1.73 sq m using serum, plasma, or whole bOrdered By: Lorraine Stanley on 06-29-2024 GFR/1.73 sq M.predicted among non-blacks MDRD (S/P/Bld) [Vol rate/Area] 83 mL/min/{1.73_m2} >60 [facility] Comment on above: mL/min/1.73m2 CKD-EP I Creatinine Equation (2020) Hematocrit Auto (Bld) [Volum e fraction]Ordered By: Lorraine Stanley on 06-29-2024 Hematocrit (Bld) [Volume fraction] 35.2 % Low 37-47 [facility] Hemoglobin measurementOrdere d By: Lorraine Stanley on 06-29-2024 Hemoglobin (Bld) [Mass/Vol] 11.7 g/dL Low 12.0-15.0 [facility] Immature granulocytes/100 WB C Auto (Bld)Ordered By: Lorraine Stanley on 06-29-2024 Immature granulocytes/100 WBC (Bld) 0.400 % 0.0-0.9 [facility] [facility] Comment on above: IG% - Immature Granu locytes (promyelocytes, myelocytes and metamyelocytes) > 1% indicates that a LEFT SHIFT is Present. Laboratory - Chemistry and C hemistry - challengeOrdered By: Lorraine Stanley on 06-29-2024 AST [Catalytic activity/Vol] 20 U/L <32 [facility] MCV (mean corpuscular volume ) determinationOrdered By: Lorraine Stanley on 06-29-2024 MCV (RBC) [Entitic vol] 77.4 fL Low 81-99 [facility] Mean corpuscular hemoglobin (MCH) determinationOrdered By: Lorraine Stanley on 06-29-2024 MCH (RBC) [Entitic mass] 25.7 pg Low 27.0-32.0 [facility] Mean corpuscular hemoglobin concentration (MCHC) determinationOrdered By: Lorraine Stanley on 06-29-2024 MCHC (RBC) [Mass/Vol] 33.2 g/dL 32-36 [facility] Mean platelet volume determi nationOrdered By: Lorraine Stanley on 06-29-2024 Platelet mean volume (Bld) [Entitic vol] 9.5 fL 6.2-12.0 [facility] Monocyte percentageOrdered B y: Lorraine Stanley on 06-29-2024 Monocytes/100 WBC (Bld) 7.7 % 0-10 [facility] Neutrophil percentageOrdered By: Lorraine Stanley on 06-29-2024 Neutrophils/100 WBC (Bld) 74.0 % High 47-70 [facility] Nucleated red blood cell per centageOrdered By: Lorranie Stanley on 06-29-2024 Nucleated RBC/100 WBC (Bld) [Ratio] 0 % 0-5 [facility] Platelet countOrdered By: Erica Stanley on 06-29-2024 Platelets (Bld) [#/Vol] 440 10*3/uL 150-450 [facility] Potassium measurement (mass/ volume)Ordered By: Lorraine Stanley on 06-29-2024 Potassium (Unsp spec) [Mass/Vol] 4.1 mmol/L 3.3-5.1 [facility] RBC Auto (Bld) [#/Vol]Ordere d By: Lorraine Stanley on 06-29-2024 RBC (Bld) [#/Vol] 4.55 10*6/uL 4.2-5.4 [facility] Serum creatinine measurement (mass/volume)Ordered By: Lorraine Stanley on 06-29-2024 Creatinine [Mass/Vol] 0.78 mg/dL 0.70-1.20 [facility] Serum globulin measurementOr dered By: Lorraine Stanley on 06-29-2024 Globulin (S) [Mass/Vol] 3.1 g/dL 2.2-4.2 [facility] Serum glucose measurement (m ass/volume)Ordered By: Lorraine Stanley on 06-29-2024 Glucose [Mass/Vol] 107 mg/dL High 70-99 [facility] Serum or plasma alanine ewston otransferase (ALT) measurementOrdered By: Lorraine Stanley on 06-29-2024 ALT [Catalytic activity/Vol] 17 U/L <35 [facility] Serum or plasma albumin mohan urement (mass/volume)Ordered By: Lorraine Stanley on 06-29-2024 Albumin [Mass/Vol] 4.6 g/dL 3.4-4.8 [facility] Serum or plasma albumin/glob ulin mass ratioOrdered By: Lorraine Stanley on 06-29-2024 Albumin/Globulin [Mass ratio] 1.5 {ratio} 0.9-2.4 [facility] Serum or plasma alkaline suni sphatase measurementOrdered By: Lorraine Stanley on 06-29-2024 ALP [Catalytic activity/Vol] 53 U/L 35-104 [facility] Serum or plasma calcium mohan urement (mass/volume)Ordered By: Lorraine Stanley on 06-29-2024 Calcium [Mass/Vol] 9.9 mg/dL 7.6-11.0 [facility] Serum or plasma urea nitroge n measurement (mass/volume)Ordered By: Lorraine Stanley on 06-29-2024 Urea nitrogen [Mass/Vol] 15 mg/dL 4-19 [facility] Sodium levelOrdered By: Lorraine Stanley on 06-29-2024 Sodium [Moles/Vol] 129 mmol/L Low 133-145 [facility] Thoracic Spine 3 Viewson Thoracic Spine 3 Views [facility] Imaging Services [address] [place] [address] Thoracic Spine 3 Views MR#: [id number] Acct: [id number] Name: DORY BASURTO Rep #: [id number] : 1955 F 68 From: Tammy lester MD PCP: Dr. Lorraine Stanley DO Status: REG CLI Study: Thoracic Spine 3 Views Date of Exam: 06/29/24 Exam# [id number] Ordering Dr: Lorraine Stanley DO PROCEDURE: THORACIC SPINE 3 VIEWS 06/29/2024 REASON FOR EXAM: THORACIC BACK PAIN TECHNIQUE: 3 views of the thoracic spine COMPARISON: None. FINDINGS: Mild osteopenia. Reverse S shaped scoliosis. Severe chronic osteoporotic compression fracture of T5 vertebral body. Secondary increased dorsal kyphosis. There are diffuse spondylotic changes. Findings are demonstrated to by diffuse disc space narrowing, osteophyte formation and degenerative endplate sclerosis. There is diffuse facet joint arthropathy with secondary bilateral neural foramina narrowing. No dislocation is seen. No aggressive lytic or blastic bony lesion is noted. RAD/Thoracic Spine 3 Views IMPRESSION: Mild osteopenia. Reverse S shaped scoliosis. Severe chronic osteoporotic compression fracture of T5 vertebral body. Secondary increased dorsal kyphosis. Reading Location: [place] [address] CC: Dr. Lorraine Stanley DO Marine Services Technician: Signed Normal [facility] Total proteinOrdered By: Ann-Marie Stanley on 06-29-2024 Protein [Mass/Vol] 7.7 g/dL 5.9-8.4 [facility] Vitamin D,25 Hydroxyon 06-29 Vitamin D 25-OH 47.6 ng/mL Normal 30-100 [facility] Comment on above: Result Comment: Yin min D Status Deficiency: <20 ng/mL (50nmol/L) Insufficiency: 20-30 ng/mL (50-75 nmol/L) Sufficiency: 30-100 ng/mL (75-250 nmol/L) Toxicity: >100 ng/mL (>250 nmol/L) Performed By: #### L 506.1001, L500.4050, L100.0100 #### [facility] [address] [place], [place], [address] White blood cell (WBC) count Ordered By: Lorraine Stanley on 06-29-2024 WBC (Bld) [#/Vol] 17.8 10*3/uL High 4.4-11.0 [facility] Low Dose CT Lung Screeningon 12-02-[address] Lung Screening [facility] Imaging Services [address] [place] [address] Lung Screening MR#: [id number] Acct: [id number] Name: DORY BASURTO Rep #: [id number] : 1955 F 68 From: Herminio holder MD PCP: Dr. Lorraine Stanley DO Status: [facility] Study: Low Dose CT Lung Screening Date of Exam: 12/01 Exam# [id number] Ordering Dr: Lorraine Stanley DO [id number] STUDY: LOW DOSE CT LUNG CANCER SCREENING REASON FOR EXAM: Female, 68 years old. SCREENING, SMOKING HX RADIATION DOSAGE (If Supplied By Facility): CTDIvol = ( 2.01 ) mGy, DLP = ( 71.98 ) mGycm TECHNIQUE: No contrast was administered. Low dose technique was utilized (average mAS-38 and kVp 120). 1.25 mm axial source images with a slice interval of 1.25-mm were reconstructed in lung windows. 2.5 mm axial source images with a slice interval of 2.5-mm were reconstructed in lung windows. 5.0 mm axial source images with a slice interval of 5.0-mm were reconstructed in soft tissue windows. COMPARISON: Comparison is made with prior study dated October 26, 2022. NODULES: No suspicious nodules are seen. Emphysema: Hyperinflation. Emphysematous changes more prominently upper lobes. Bilateral apical pulmonary scarring worse at the left lung apex. Focal scarring is also noted to be aspect of the medial segment of left upper lobe and right middle lobe. Endobronchial lesion: None Aorta: Atherosclerotic plaque formation. CORONARY ARTERIES: Coronary artery calcification is seen. Heart: Unremarkable Pulmonary artery: Unremarkable Mediastinal nodes: Small mediastinal lymph nodes. Other chest and abdominal findings: CT/Low Dose CT Lung Screening IMPRESSION: Lung-RADS category 2 - Continue annual screening with LDCT in 12 months. IMPORTANT NOTES FOR USE: ACR Lung-RADS Version 1.1 Assessment Categories Release Date: 2018 Category: Coded 0-4 bases on nodule(s) with highest degree of suspicion. Negative screen is defined as categories 1 and 2; a positive screen is defined as categories 3 and 4. Category 3 and 4A nodules that are unchanged on interval CT should be coded as category 2, and individuals returned to screening in 12 months. Category 4X: Category 3 or 4 nodules with additional imaging findings that increase the suspicion of lung cancer, such as spiculation, GGN that doubles in size in 1 year, enlarged lymph notes, etc. Category Modifiers: S (significant finding unrelated to lung cancer) Electronically Signed: Herminio Freedman MD at 12:11 EDT , CC: Dr. Lorraine Stanley, DO Marine Services Technician: Signed Normal [facility] Absolute lymphocyte counton 08-11-2021 Lymphocytes Auto (Unsp spec) [#/Vol] 2.17 10*3/uL 0.83-4.51 [facility] Work Phone: Basophil percentageon 2021 Basophils/100 WBC (Bld) 0.6 % 0-1 [facility] Work Phone: Bilirubin [Mass/Vol] 0.30 mg/dL 0.20-1.00 [facility] Work Phone: Comment on above: For patients on eltr ombopag therapy, use of Dimension [place] TBIL is not recommended. Chloride [Moles/Vol] 98 mmol/L 98-107 [facility] Work Phone: Eosinophils/100 WBC (Bld) 1.0 % 0-5 [facility] Work Phone: Glucose [Mass/Vol] 112 mg/dL 74-106 [facility] Work Phone: Comment on above: Fasting Glucose resu lt from 100 to 125 mg/dL suggests IMPAIRED HOMEOSTASIS per A.D.A. criteria. Neutrophils (Bld) [#/Vol] 6.6 10*3/uL 2.0-7.7 [facility] Work Phone: Neutrophils/100 WBC (Bld) 68.3 % 47-70 [facility] Work Phone: Potassium [Moles/Vol] 3.9 mmol/L 3.5-5.1 [facility] Work Phone: Protein [Mass/Vol] 7.9 g/dL 6.4-8.2 [facility] Work Phone: Sodium [Moles/Vol] 133 mmol/L 136-145 [facility] Work Phone: WBC (Bld) [#/Vol] 9.7 10*3/uL 4.4-11.0 [facility] Work Phone: Blood erythrocytes count (nu mber/volume)on 08-11-2021 RBC (Bld) [#/Vol] 4.72 10*6/uL 4.2-5.4 [facility] Work Phone: Blood hemoglobin measurement (mass/volume)on 08-11-2021 Hemoglobin (Bld) [Mass/Vol] 14.2 g/dL 12.0-15.0 [facility] Work Phone: Blood lymphocytes/100 leukoc yteson 08-11-2021 Lymphocytes/100 WBC (Bld) 22.5 % 19-41 [facility] Work Phone: Blood monocytes/100 leukocyt eson 08-11-2021 Monocytes/100 WBC (Bld) 7.3 % 0-10 [facility] Work Phone: Blood platelet mean volumeon 08-11-2021 Platelet mean volume (Bld) [Entitic vol] 9.7 fL 6.2-12.0 [facility] Work Phone: [phone] Determination of erythrocyte mean corpuscular volume (MCV)on 08-11-2021 MCV (RBC) [Entitic vol] 89.0 fL 81-99 [facility] Work Phone: [phone] Hematocrit Auto (Bld) [Volum e fraction]on 08-11-2021 Hematocrit (Bld) [Volume fraction] 42.0 % 37-47 [facility] Work Phone: [phone] Iron measurement (mass/mass) on 08-11-2021 Iron (Unsp spec) [Mass/Mass] 62 ug/dL 50-170 [facility] Work Phone: [phone] Laboratory - Chemistry and C hemistry - challengeon 08-11-2021 ALP [Catalytic activity/Vol] 68 U/L 45-117 [facility] Work Phone: [phone] ALT [Catalytic activity/Vol] 21 U/L 13-56 [facility] Work Phone: [phone] CO2 [Moles/Vol] 26.0 mmol/L 21.0-32.0 [facility] Work Phone: [phone] Cobalamin (Vitamin B12) [Mass/Vol] 1166 pg/mL 211-911 [facility] Work Phone: [phone] Globulin (S) [Mass/Vol] 4.0 g/dL 2.2-4.2 [facility] Work Phone: [phone] Urea nitrogen/Creatinine [Mass ratio] 8.3 mg/mg 10-20 [facility] Work Phone: [phone] Laboratory - Hematology and Cell countson 08-11-2021 Erythrocyte distribution width (RBC) [Entitic vol] 43.8 fL 35.1-43.9 [facility] Work Phone: [phone] Erythrocyte distribution width (RBC) [Ratio] 13.3 % 11.6-14.6 [facility] Work Phone: [phone] Immature granulocytes/100 WBC (Bld) 0.300 % 0.0-0.9 [facility] Work Phone: Comment on above: IG% - Immature Granu locytes (promyelocytes, myelocytes and metamyelocytes) > 1% indicates that a LEFT SHIFT is Present. MCH (RBC) [Entitic mass] 30.1 pg 27.0-32.0 [facility] Work Phone: Nucleated RBC/100 WBC (Bld) [Ratio] 0 % 0-5 [facility] Work Phone: MCHC Auto (RBC) [Mass/Vol]on 08-11-2021 MCHC (RBC) [Mass/Vol] 33.8 g/dL 32-36 [facility] Work Phone: No Panel Informationon 08-11 Estimated GFR (MDRD) Amer 128 mL/min >60 [facility] Work Phone: Comment on above: GFR Calc Estimated GFR (MDRD) Non-Af Amer 105 mL/min >60 [facility] Work Phone: Comment on above: Non- GFR Calc Vitamin D 25-Hydroxy 43.6 ng/mL [facility] Work Phone: Comment on above: Vitamin D 25(OH) Sta tus Range Deficiency <20 ng/mL (50nmol/L) Insufficiency 20 - 30 ng/mL (50 - 75 nmol/L) Sufficiency 30 - 100 ng/mL (75 - 250 nmol/L) Toxicity >100 ng/mL (>250 nmol/L) Platelets bldon 08-11-2021 Platelets (Bld) [#/Vol] 356 10*3/uL 150-450 [facility] Work Phone: [phone] Serum or plasma albumin mohan urement (mass/volume)on 08-11-2021 Albumin [Mass/Vol] 3.9 g/dL 3.2-5.0 [facility] Work Phone: [phone] Serum or plasma albumin/glob ulin mass ratioon 08-11-2021 Albumin/Globulin [Mass ratio] 1.0 {ratio} 0.9-2.4 [facility] Work Phone: Serum or plasma calcium mohan urement (mass/volume)on 08-11-2021 Calcium [Mass/Vol] 9.1 mg/dL 8.5-10.1 [facility] Work Phone: Serum or plasma creatinine m easurement (mass/volume)on 08-11-2021 Creatinine [Mass/Vol] 0.60 mg/dL 0.55-1.02 [facility] Work Phone: Comment on above: The validity of the calculated GFR & GFRAA in patients over 70 years has not been determined. Clinical correlation is essential. Serum or plasma ferritin estelita surement (mass/volume)on 08-11-2021 Ferritin [Mass/Vol] 49 ng/mL 8-252 [facility] Work Phone: Serum or plasma urea nitroge n measurement (mass/volume)on 08-11-2021 Urea nitrogen [Mass/Vol] 5 mg/dL 7-18 [facility] Work Phone: Thin prep Papanicolaou smear with manual screeningon 08-11-2021 Thin prep Papanicolaou smear with manual screening 13 U/L 15-37 [facility] Work Phone: Thin prep Papanicolaou smear with manual screening 9 5-15 [facility] Work Phone: CULTURE MYCOBACTERIAon 11-22 CULTURE MYCOBACTERIA CULTURE MYCOBACTERI A --> Status: F No acid-fast bacilli isolated after 6 weeks incubation. Normal [facility] Comment on above: Order Comment: Speci men Source Comment:Body Fluid Performed By: #### H EMOG, MG3, BMP3 #### [employer] [facility] [place] [address] [address] [address] CULTURE FUNGUSon 11-01-2019 CULTURE FUNGUS CULTURE FUNGUS --> Status: F No fungus isolated after 21 days. [employer] [facility] Comment on above: Order Comment: Speci men Source Comment:Other Performed By: #### H EMOG, MG3, BMP3 #### [employer] [address] [place], [place] CULTURE FUNGUSon 10-30-2019 CULTURE FUNGUS CULTURE FUNGUS --> Status: F No fungus isolated after 21 days. Normal [facility] Comment on above: Order Comment: Speci men Source Comment:Body Fluid Performed By: #### H NGUYEN MG3, BMP3 #### [facility] [address] [place], [place] Hemogramon 10-23-2019 WBC (Bld) [#/Vol] 9.6 10*3/uL Normal 3.6-10.7 [facility] Comment on above: Result Comment: Thro mbocytosis, normocytic anemia with anisocytosis and slightly left shifted granulocytes. R/O infection, blood loss/coagulopathy and/or iron deficiency. No blasts or dysgranulopoiesis is seen. However, if thrombocytosis persists in absence of a clear etiology, molecular studies would be indicated to exclude a primary bone marrow disorder. tie buyer Performed By: #### H NGUYEN MG3, BMP3 #### [place] [address] [address] [place], [place] Basic Metabolic Panelon 09-22 Calcium [Mass/Vol] 7.6 mg/dL Low 8.4-10.4 [facility] Comment on above: Performed By: #### H NGUYEN MG3, BMP3 #### [place] [address] [address] [place], [place] Anion gap [Moles/Vol] 5 Normal [facility] Comment on above: Performed By: #### H NGUYEN MG3, BMP3 #### [place] [address] [address] [place], [place] CO2 [Moles/Vol] 21 mmol/L Low 22-30 [facility] Comment on above: Performed By: #### H NGUYEN MG3, BMP3 #### [place] [address] [place], [place] Creatinine [Mass/Vol] 0.28 mg/dL Low 0.52-1.25 [facility] Comment on above: Performed By: #### H NGUYEN MG3, BMP3 #### [place] [address] [address] [place], [place] GFR/1.73 sq M predicted among blacks MDRD (S/P/Bld) [Vol rate/Area] mL/min/{1.73_m2} Normal >60 [facility] Comment on above: Performed By: #### H NGUYEN MG3, BMP3 #### [facility] [address] [place] [address] GFR/1.73 sq M predicted among non-blacks MDRD (S/P/Bld) [Vol rate/Area] mL/min/{1.73_m2} Normal >60 [facility] Comment on above: Result Comment: KDIG O guidelines provide the following GFR categories: Stage GFR(ml/min/1.73 m2) Terms G1 >=90 Normal or high G2 60-89 Mildly decreased* G3a 45-59 Mildly to moderately decreased G3b 30-44 Moderately to severely decreased G4 15-29 Severely decreased G5 <15 Kidney failure *Relative to young adult level. In the absence of evidence of kidney damage, neither GFR category G1 nor G2 fulfill the criteria for CKD. The CKD-EPI equation is validated in individuals 18 years of age and older. Currently the best equation for estimating glomerular filtration rate (GFR) from serum creatinine in children is the Bedside Oshea equation. It is less accurate in patients with extremes of muscle mass, restriction of dietary protein, ingestion of creatine, extra-renal metabolism of creatinine, or treatment with medications that affect renal tubular creatinine secretion. Performed By: #### H NGUYEN MG3, BMP3 #### [facility] [address] [place], [place] Glucose [Mass/Vol] 72 mg/dL Normal 70-100 [facility] Comment on above: Performed By: #### H NGUYEN MG3, BMP3 #### [facility] [address] [place], [place] Urea nitrogen [Mass/Vol] 3 mg/dL Low 7-20 [facility] Comment on above: Performed By: #### H GNUYEN MG3, BMP3 #### [facility] [address] [place], [place] Potassium [Moles/Vol] 3.0 mmol/L Low 3.5-5.1 [facility] Comment on above: Performed By: #### H EMOG, MG3, BMP3 #### [facility] [address] [place] [address] Sodium [Moles/Vol] 133 mmol/L Low 135-145 [facility] Comment on above: Performed By: #### H EMOG, MG3, BMP3 #### [facility] [address] [place] [address] Chloride [Moles/Vol] 106 mmol/L Normal 98-107 [facility] Comment on above: Performed By: #### H EMOG, MG3, BMP3 #### [facility] [address] [place] [address] Anion gap [Moles/Vol] 5 mmol/L [place], [place] Calcium [Mass/Vol] 7.6 mg/dL Low 8.4 - 10. 4 mg/dL [place], [place] Chloride [Moles/Vol] 106 mmol/L 98 - 10 7 mmol/L [place], [place] CO2 [Moles/Vol] 21 mmol/L Low 22 - 30 mmol/L [place] Creatinine [Mass/Vol] 0.28 mg/dL Low 0.52 - 1.25 mg/dL [place], [place] EGFR IF NonAfrican [place]an >90.0 >60 mL/min [place], [place] Comment on above: KDIGO guidelines pro vide the following GFR categories: Stage GFR(ml/min/1.73 m2) Terms G1 >=90 Normal or high G2 60-89 Mildly decreased* G3a 45-59 Mildly to moderately decreased G3b 30-44 Moderately to severely decreased G4 15-29 Severely decreased G5 <15 Kidney failure *Relative to young adult level. In the absence of evidence of kidney damage, neither GFR category G1 nor G2 fulfill the criteria for CKD. The CKD-EPI equation is validated in individuals 18 years of age and older. Currently the best equation for estimating glomerular filtration rate (GFR) from serum creatinine in children is the Bedside Oshea equation. It is less accurate in patients with extremes of muscle mass, restriction of dietary protein, ingestion of creatine, extra-renal metabolism of creatinine, or treatment with medications that affect renal tubular creatinine secretion. GFR/1.73 sq M predicted among blacks MDRD (S/P/Bld) [Vol rate/Area] mL/min/{1.73_m2} >60 mL/min [place], [place] Glucose [Mass/Vol] 72 mg/dL 70 - 100 mg/dL [place] Potassium [Moles/Vol] 3.0 mmol/L Low 3.5 - 5.1 mmol/L [place] Sodium [Moles/Vol] 133 mmol/L Low 135 - 145 mmol/L [place] Urea nitrogen [Mass/Vol] 3 mg/dL Low 7 - 20 mg/dL [place] CBCon 10-20-2019 Erythrocyte distribution width (RBC) [Ratio] 21.5 % High 11.5 - 14.5 % [place] Hematocrit (Bld) [Volume fraction] 26.8 % Low 35 - 47 % [place] Hemoglobin (Bld) [Mass/Vol] 8.7 g/dL Low 11.7 - 16 g/dL [place] Interpretation and review of laboratory results Abnormal [place] MCH (RBC) [Entitic mass] 27.8 pg 26 - 34 pg [place] MCHC (RBC) [Mass/Vol] 32.6 % 32 - 36 % [place], [place] MCV (RBC) [Entitic vol] 85.3 fL 79 - 98 fL [place] Platelet mean volume (Bld) [Entitic vol] 8.5 fL 7.4 - 10.4 fL [place] Platelets (Bld) [#/Vol] 739 10*3/uL High 140 - 440 10*3/uL [place] RBC (Bld) [#/Vol] 3.14 10*6/uL Low 3.8 - 5.2 10*6/uL [place] WBC (Bld) [#/Vol] 9.4 10*3/uL 3.6 - 10.7 10*3/uL [place] Test Performed by [facility], [address] [place] [address] [place], [place] Calcium, Ionizedon 0 Interpretation and review of laboratory results Abnormal [facility], [place] Ionized Ca 4.20 mg/dL Low 4.3 - 5.2 mg/dL [place] pH (Bld) 7.43 [pH] [place] Test Performed by [facility], [address] [place] [address] [place], [place] Calcium,Ionizedon 10-20-2019 Ionized Ca,Measured 4.20 mg/dL Low 4.30-5.20 [facility] Comment on above: Performed By: #### H EMOG, MG3, BMP3 #### [address] [address] [place] [address] pH, Ionized Calcium 7.43 Normal 7.31-7.46 [facility] Comment on above: Performed By: #### H EMOG, MG3, BMP3 #### [address] [address] [place] [address] Glucose,Bedsideon 10-20-2019 Glucose [Mass/Vol] 134 mg/dL High 70-100 [facility] Comment on above: Result Comment: Test performed by glucose meter. Results may be 10%-15% lower than serum/plasma values. (CLIA ID [id number]) Performed By: #### H EMOPerla, MG3, BMP3 #### [facility] [address] [address] [place], [place] Glucose [Mass/Vol] 80 mg/dL Normal 70-100 [facility] Comment on above: Result Comment: Test performed by glucose meter. Results may be 10%-15% lower than serum/plasma values. (CLIA ID [id number]) Performed By: #### H EMOG, MG3, BMP3 #### [facility] [place] [address] [place] [address] Hemogramon 10-20-2019 Erythrocyte distribution width (RBC) [Ratio] 21.5 % High 11.5-14.5 [facility] Comment on above: Performed By: #### H EMOG, MG3, BMP3 #### [facility] [address] [place] [address] Hematocrit (Bld) [Volume fraction] 26.8 % Low 35.0-47.0 [facility] Comment on above: Performed By: #### H NGUYEN MG3, BMP3 #### [address] [address] [place], [place] Hemoglobin (Bld) [Mass/Vol] 8.7 g/dL Low 11.7-16.0 [facility] Comment on above: Performed By: #### Herman CEDILLO MG3, BMP3 #### [address] [address] [place] MCH (RBC) [Entitic mass] 27.8 pg Normal 26.0-34.0 [facility] Comment on above: Performed By: #### Herman CEDILLO MG3, BMP3 #### [address] [address] [place] MCHC (RBC) [Mass/Vol] 32.6 % Normal 32.0-36.0 [facility] Comment on above: Performed By: #### Herman CEDILLO MG3, BMP3 #### [address] [address] [place] MCV (RBC) [Entitic vol] 85.3 fL Normal 79.0-98.0 [facility] Comment on above: Performed By: #### Herman CEDILLO MG3, BMP3 #### [address] [address] [place] Platelet mean volume (Bld) [Entitic vol] 8.5 fL Normal 7.4-10.4 [facility] Comment on above: Performed By: #### H NGUYEN MG3, BMP3 #### [address] [address] [place], [place] Platelets (Bld) [#/Vol] 739 10*3/uL High 140-440 [facility] Comment on above: Performed By: #### H NGUYEN MG3, BMP3 #### [address] [address] [place], [place] RBC (Bld) [#/Vol] 3.14 10*6/uL Low 3.80-5.20 [facility] Comment on above: Performed By: #### H EMOG, MG3, BMP3 #### [facility] [address] [place], [place] WBC (Bld) [#/Vol] 9.4 10*3/uL Normal 3.6-10.7 [facility] Comment on above: Performed By: #### H EMOG, MG3, BMP3 #### [facility] [address] [place], [place] Hepatic Functionon 0 ALT [Catalytic activity/Vol] 21 U/L Normal 0-34 [facility] Comment on above: Result Comment: The ALT test is performed by an updated assay method. Please note that the reference intervals have been changed and are now sex specific. Performed By: #### H EMOG, MG3, BMP3 #### [facility] [address] [place], [place] ALP [Catalytic activity/Vol] 98 U/L Normal 38-126 [facility] Comment on above: Performed By: #### H EMOG, MG3, BMP3 #### [facility] [address] [place], [place] AST [Catalytic activity/Vol] 46 U/L Normal 15-46 [facility] Comment on above: Performed By: #### H EMOG, MG3, BMP3 #### [facility] [address] [place], [place] Bilirubin [Mass/Vol] 0.3 mg/dL Normal 0.2-1.3 [facility] Comment on above: Performed By: #### H EMOG, MG3, BMP3 #### [facility] [address] [place], [place] Bilirubin.direct [Mass/Vol] 0.0 mg/dL Normal 0.0-0.3 [facility] Comment on above: Performed By: #### H EMOG, MG3, BMP3 #### [facility] [address] [place], [place] Protein [Mass/Vol] 5.3 g/dL Low 6.3-8.2 [facility] Comment on above: Performed By: #### H EMOG, MG3, BMP3 #### [facility] [address] [place] [address] Albumin [Mass/Vol] 2.5 g/dL Low 3.5-5.0 [facility] Comment on above: Performed By: #### H EMOG, MG3, BMP3 #### [facility] [address] [place] [address] Hepatic Function Panelon Albumin [Mass/Vol] 2.5 g/dL Low 3.5 - 5 g/dL [place] ALP [Catalytic activity/Vol] 98 U/L 38 - 126 U/L [place] ALT [Catalytic activity/Vol] 21 U/L 0 - 34 U/L [place] Comment on above: The ALT test is perf ormed by an updated assay method. Please note that the reference intervals have been changed and are now sex specific. AST [Catalytic activity/Vol] 46 U/L 15 - 46 U/L [place] Bilirubin Ql (U) 0.3 mg/dL 0.2 - 1.3 mg/dL [place] Bilirubin.direct [Mass/Vol] 0.0 mg/dL 0 - 0.3 mg/dL [place] Protein [Mass/Vol] 5.3 g/dL Low 6.3 - 8.2 g/dL [place] Magnesiumon 10-20-2019 Magnesium [Mass/Vol] 1.6 mg/dL Normal 1.6-2.3 [facility] Comment on above: Performed By: #### H EMOG, MG3, BMP3 #### [facility] [address] [place] [address] Magnesium [Mass/Vol] 1.6 mg/dL 1.6 - 2 .3 mg/dL [place] Otheron 10-20-2019 Interpretation and review of laboratory results Abnormal [place] Test Performed by [facility], [address] [place] [address] [place], [place] POCT Glucoseon 10-20-2019 Glucose [Mass/Vol] 134 mg/dL High 70 - 100 mg/dL [place] Comment on above: Test performed by gl ucose meter. Results may be 10%-15% lower than serum/plasma values. (CLIA ID [id number]) Interpretation and review of laboratory results Abnormal [place] Test Performed by [facility], [address] [place] [address] Glucose [Mass/Vol] 80 mg/dL 70 - 100 mg/dL [place] Comment on above: Test performed by gl ucose meter. Results may be 10%-15% lower than serum/plasma values. (CLIA ID [id number]) Test Performed by [facility], [address] [place] [address] Phosphoruson 10-20-2019 Phosphate [Mass/Vol] 2.3 mg/dL Low 2.5-4.5 [facility] Comment on above: Performed By: #### H CANDELARIA CEDILLO, BMP3 #### [address] [address] Phosphate [Mass/Vol] 2.3 mg/dL Low 2.5 - 4 .5 mg/dL [place] Prothrombin Timeon 0 INR Coag (PPP) [Relative time] 1.0 Normal 0.9-1.1 [facility] Comment on above: Result Comment: Mark mmended Anticoagulant Therapy: SEE BELOW ----- INR of 2.0 - 3.0 : - Prophylaxis of Venous Thrombosis (high-risk surgery) - Treatment of Venous Thrombosis - Treatment of Pulmonary Embolism (Includes tissue heart valves, Acute Myocardial Infarction to prevent systemic embolism, Valvular Heart Disease, and Atrial Fibrillation) ----- INR of 2.5 - 3.5 : - Mechanical Prosthetic Valves (high risk) - If oral anticoagulant therapy is used to prevent Myocardial Infarction Performed By: #### H MG NGUYEN3, BMP3 #### [address] [address] [place] [address] PT Coag (PPP) [Time] 10.6 s Normal 9.0-12.0 [facility] Comment on above: Result Comment: . Performed By: #### H NGUYEN MG3, BMP3 #### [address] Protime-INRon 10-20-2019 INR Coag (PPP) [Relative time] 1.0 {INR} [place] Comment on above: Recommended Anticoag ulant Therapy: SEE BELOW ----- INR of 2.0 - 3.0 : - Prophylaxis of Venous Thrombosis (high-risk surgery) - Treatment of Venous Thrombosis - Treatment of Pulmonary Embolism (Includes tissue heart valves, Acute Myocardial Infarction to prevent systemic embolism, Valvular Heart Disease, and Atrial Fibrillation) ----- INR of 2.5 - 3.5 : - Mechanical Prosthetic Valves (high risk) - If oral anticoagulant therapy is used to prevent Myocardial Infarction PT Coag (PPP) [Time] 10.6 s 9 - 12 s [place] Comment on above: . Test Performed by [address] Basic Metabolic Panelon 09-22 Calcium [Mass/Vol] 8.2 mg/dL Low 8.4-10.4 [facility] Comment on above: Performed By: #### H NGUYEN MG3, BMP3 #### [address] Glucose [Mass/Vol] 81 mg/dL Normal 70-100 [facility] Comment on above: Performed By: #### H NGUYEN MG3, BMP3 #### [address] Anion gap [Moles/Vol] 7 Normal [facility] Comment on above: Performed By: #### H NGUYEN MG3, BMP3 #### [address] CO2 [Moles/Vol] 23 mmol/L Normal 22-30 [facility] Comment on above: Performed By: #### H NGUYEN MG3, BMP3 #### [address] Creatinine [Mass/Vol] 0.41 mg/dL Low 0.52-1.25 [facility] Comment on above: Performed By: #### H NGUYEN MG3, BMP3 #### [facility] [address] [place] [address] GFR/1.73 sq M predicted among blacks MDRD (S/P/Bld) [Vol rate/Area] mL/min/{1.73_m2} Normal >60 [facility] Comment on above: Performed By: #### H NGUYEN MG3, BMP3 #### [facility] [address] [place] [address] GFR/1.73 sq M predicted among non-blacks MDRD (S/P/Bld) [Vol rate/Area] mL/min/{1.73_m2} Normal >60 [facility] Comment on above: Result Comment: KDIG O guidelines provide the following GFR categories: Stage GFR(ml/min/1.73 m2) Terms G1 >=90 Normal or high G2 60-89 Mildly decreased* G3a 45-59 Mildly to moderately decreased G3b 30-44 Moderately to severely decreased G4 15-29 Severely decreased G5 <15 Kidney failure *Relative to young adult level. In the absence of evidence of kidney damage, neither GFR category G1 nor G2 fulfill the criteria for CKD. The CKD-EPI equation is validated in individuals 18 years of age and older. Currently the best equation for estimating glomerular filtration rate (GFR) from serum creatinine in children is the Bedside Oshea equation. It is less accurate in patients with extremes of muscle mass, restriction of dietary protein, ingestion of creatine, extra-renal metabolism of creatinine, or treatment with medications that affect renal tubular creatinine secretion. Performed By: #### H NGUYEN MG3, BMP3 #### [facility] [address] [place] [address] Urea nitrogen [Mass/Vol] 6 mg/dL Low 7-20 [facility] Comment on above: Performed By: #### H NGUYEN MG3, BMP3 #### [facility] [address] [place] [address] Chloride [Moles/Vol] 104 mmol/L Normal 98-107 [facility] Comment on above: Performed By: #### H EMOG, MG3, BMP3 #### [facility] [address] [place] [address] Potassium [Moles/Vol] 3.4 mmol/L Low 3.5-5.1 [facility] Comment on above: Performed By: #### H EMOG, MG3, BMP3 #### [facility] [address] [place], [place] Sodium [Moles/Vol] 135 mmol/L Normal 135-145 [facility] Comment on above: Performed By: #### H EMOG, MG3, BMP3 #### [facility] [address] [place], [place] Anion gap [Moles/Vol] 7 mmol/L [place], [place] Calcium [Mass/Vol] 8.2 mg/dL Low 8.4 - 10. 4 mg/dL [place] Chloride [Moles/Vol] 104 mmol/L 98 - 10 7 mmol/L [place] CO2 [Moles/Vol] 23 mmol/L 22 - 30 mmol/L [place] Creatinine [Mass/Vol] 0.41 mg/dL Low 0.52 - 1.25 mg/dL [place] EGFR IF NonAfrican [place]an >90.0 >60 mL/min [place] Comment on above: KDIGO guidelines pro vide the following GFR categories: Stage GFR(ml/min/1.73 m2) Terms G1 >=90 Normal or high G2 60-89 Mildly decreased* G3a 45-59 Mildly to moderately decreased G3b 30-44 Moderately to severely decreased G4 15-29 Severely decreased G5 <15 Kidney failure *Relative to young adult level. In the absence of evidence of kidney damage, neither GFR category G1 nor G2 fulfill the criteria for CKD. The CKD-EPI equation is validated in individuals 18 years of age and older. Currently the best equation for estimating glomerular filtration rate (GFR) from serum creatinine in children is the Bedside Oshea equation. It is less accurate in patients with extremes of muscle mass, restriction of dietary protein, ingestion of creatine, extra-renal metabolism of creatinine, or treatment with medications that affect renal tubular creatinine secretion. GFR/1.73 sq M predicted among blacks MDRD (S/P/Bld) [Vol rate/Area] mL/min/{1.73_m2} >60 mL/min [place] Glucose [Mass/Vol] 81 mg/dL 70 - 100 mg/dL [place] Potassium [Moles/Vol] 3.4 mmol/L Low 3.5 - 5.1 mmol/L [place] Sodium [Moles/Vol] 135 mmol/L 135 - 145 mmol/L [place] Urea nitrogen [Mass/Vol] 6 mg/dL Low 7 - 20 mg/dL [place] CBCon 10-19-2019 Erythrocyte distribution width (RBC) [Ratio] 22.1 % High 11.5 - 14.5 % [place] Hematocrit (Bld) [Volume fraction] 31.7 % Low 35 - 47 % [place] Hemoglobin (Bld) [Mass/Vol] 10.2 g/dL Low 11.7 - 16 g/dL [place] Interpretation and review of laboratory results Abnormal [place] MCH (RBC) [Entitic mass] 27.7 pg 26 - 34 pg [place] MCHC (RBC) [Mass/Vol] 32.0 % 32 - 36 % [place], [place] MCV (RBC) [Entitic vol] 86.4 fL 79 - 98 fL [place] Platelet mean volume (Bld) [Entitic vol] 8.3 fL 7.4 - 10.4 fL [place] Platelets (Bld) [#/Vol] 825 10*3/uL High 140 - 440 10*3/uL [place] RBC (Bld) [#/Vol] 3.67 10*6/uL Low 3.8 - 5.2 10*6/uL [place] WBC (Bld) [#/Vol] 9.6 10*3/uL 3.6 - 10.7 10*3/uL [place] Test [facility], [address] [place] [address] [place] Calcium, Ionizedon 0 Ionized Ca 4.50 mg/dL 4.3 - 5.2 mg/dL [facility], [place] pH (Bld) 7.34 [pH] [facility], [place] Test Performed by [facility], [address] [place] [address] [facility], [place] Calcium,Ionizedon 10-19-2019 Ionized Ca,Measured 4.50 mg/dL Normal 4.30-5.20 [facility] Comment on above: Performed By: #### H NGUYEN MG3, BMP3 #### [facility] [address] [place], [place] pH, Ionized Calcium 7.34 Normal 7.31-7.46 [facility] Comment on above: Performed By: #### Herman CEDILLO MG3, BMP3 #### [address] [address] [place], [place] Glucose,Bedsideon 10-19-2019 Glucose [Mass/Vol] 143 mg/dL High 70-100 [facility] Comment on above: Result Comment: Test performed by glucose meter. Results may be 10%-15% lower than serum/plasma values. (CLIA ID [id number]) Performed By: #### Herman CEDILLO MG3, BMP3 #### [address] [address] [place], [place] Glucose [Mass/Vol] 113 mg/dL High 70-100 [facility] Comment on above: Result Comment: Test performed by glucose meter. Results may be 10%-15% lower than serum/plasma values. (CLIA ID [id number]) Performed By: #### H EMOG MG3, BMP3 #### [facility] [address] [place], [place] Glucose [Mass/Vol] 87 mg/dL Normal 70-100 [facility] Comment on above: Result Comment: biodiesel product manager Notified; Test performed by glucose meter. Results may be 10%-15% lower than serum/plasma values. (CLIA ID [id number]) Performed By: #### Herman EMOG, MG3, BMP3 #### [facility] [address] [place] [address] Hemogramon 10-19-2019 Erythrocyte distribution width (RBC) [Ratio] 22.1 % High 11.5-14.5 [facility] Comment on above: Performed By: #### H MG NGUYEN3, BMP3 #### [facility] [address] [place], [place] Hematocrit (Bld) [Volume fraction] 31.7 % Low 35.0-47.0 [facility] Comment on above: Performed By: #### H NGUYEN MG3, BMP3 #### [place] [address] [place], [place] Hemoglobin (Bld) [Mass/Vol] 10.2 g/dL Low 11.7-16.0 [facility] Comment on above: Performed By: #### H NGUYEN MG3, BMP3 #### [place] [address] [place] MCH (RBC) [Entitic mass] 27.7 pg Normal 26.0-34.0 [facility] Comment on above: Performed By: #### Herman CEDILLO MG3, BMP3 #### [address] [place] [address] [place] MCHC (RBC) [Mass/Vol] 32.0 % Normal 32.0-36.0 [facility] Comment on above: Performed By: #### H NGUYEN MG3, BMP3 #### [address] [place] [address] [place] MCV (RBC) [Entitic vol] 86.4 fL Normal 79.0-98.0 [facility] Comment on above: Performed By: #### H NGUYEN MG3, BMP3 #### [place] [address] [place], [place] Platelet mean volume (Bld) [Entitic vol] 8.3 fL Normal 7.4-10.4 [facility] Comment on above: Performed By: #### H NGUYEN, MG3, BMP3 #### [address] [place] [address] [place], [place] Platelets (Bld) [#/Vol] 825 10*3/uL High 140-440 [facility] Comment on above: Performed By: #### H EMOG, MG3, BMP3 #### [facility] [address] [place], [place] RBC (Bld) [#/Vol] 3.67 10*6/uL Low 3.80-5.20 [facility] Comment on above: Performed By: #### H EMOG, MG3, BMP3 #### [facility] [address] [place], [place] Hepatic Functionon 0 ALP [Catalytic activity/Vol] 121 U/L Normal 38-126 [facility] Comment on above: Performed By: #### H EMOPerla, MG3, BMP3 #### [place] [address] [place] [place], [place] ALT [Catalytic activity/Vol] 24 U/L Normal 0-34 [facility] Comment on above: Result Comment: The ALT test is performed by an updated assay method. Please note that the reference intervals have been changed and are now sex specific. Performed By: #### H EMOG, MG3, BMP3 #### [place] [address] [place] [place], [place] AST [Catalytic activity/Vol] 41 U/L Normal 15-46 [facility] Comment on above: Performed By: #### H EMOG, MG3, BMP3 #### [facility] [address] [place], [place] Bilirubin [Mass/Vol] 0.3 mg/dL Normal 0.2-1.3 [facility] Comment on above: Performed By: #### H EMOG, MG3, BMP3 #### [facility] [address] [place], [place] Bilirubin.direct [Mass/Vol] 0.0 mg/dL Normal 0.0-0.3 [facility] Comment on above: Performed By: #### H EMOG, MG3, BMP3 #### [facility] [address] [place], [place] Protein [Mass/Vol] 5.7 g/dL Low 6.3-8.2 [facility] Comment on above: Performed By: #### H EMOG, MG3, BMP3 #### [facility] [address] [place] [address] Albumin [Mass/Vol] 2.8 g/dL Low 3.5-5.0 [facility] Comment on above: Performed By: #### H EMOG, MG3, BMP3 #### [facility] [address] [place] [address] Hepatic Function Panelon Albumin [Mass/Vol] 2.8 g/dL Low 3.5 - 5 g/dL [place] ALP [Catalytic activity/Vol] 121 U/L 38 - 126 U/L [place] ALT [Catalytic activity/Vol] 24 U/L 0 - 34 U/L [place] Comment on above: The ALT test is perf ormed by an updated assay method. Please note that the reference intervals have been changed and are now sex specific. AST [Catalytic activity/Vol] 41 U/L 15 - 46 U/L [place] Bilirubin Ql (U) 0.3 mg/dL 0.2 - 1.3 mg/dL [place] Bilirubin.direct [Mass/Vol] 0.0 mg/dL 0 - 0.3 mg/dL [place] Protein [Mass/Vol] 5.7 g/dL Low 6.3 - 8.2 g/dL [place] Magnesiumon 10-19-2019 Magnesium [Mass/Vol] 1.7 mg/dL Normal 1.6-2.3 [facility] Comment on above: Performed By: #### H EMOG, MG3, BMP3 #### [facility] [address] [place] [address] Magnesium [Mass/Vol] 1.7 mg/dL 1.6 - 2 .3 mg/dL [place] Otheron 10-19-2019 Interpretation and review of laboratory results Abnormal [place] Test Performed by [facility], [address] [place] [address] [place], [place] POCT Glucoseon 10-19-2019 Glucose [Mass/Vol] 143 mg/dL High 70 - 100 mg/dL [place] Comment on above: Test performed by gl ucose meter. Results may be 10%-15% lower than serum/plasma values. (CLIA ID [id number]) Interpretation and review of laboratory results Abnormal [place] Test Performed by [facility], [facility] [place] [place] [id number] [place] [address] Glucose [Mass/Vol] 113 mg/dL High 70 - 100 mg/dL [place], [place] Comment on above: Test performed by gl ucose meter. Results may be 10%-15% lower than serum/plasma values. (CLIA ID [id number]) Interpretation and review of laboratory results Abnormal [place] Test Performed by [facility], [facility] [place] [place] [id number] [place] [address] Glucose [Mass/Vol] 87 mg/dL 70 - 100 mg/dL [place] Comment on above: Caregiver Notified; Test performed by glucose meter. Results may be 10%-15% lower than serum/plasma values. (CLIA ID [id number]) Test Performed by [facility], [facility] [place] [place] [id number] [place] [address] Phosphoruson 10-19-2019 Phosphate [Mass/Vol] 2.4 mg/dL Low 2.5-4.5 [facility] Comment on above: Performed By: #### H EMOG, MG3, BMP3 #### [address] [place] [address] Phosphate [Mass/Vol] 2.4 mg/dL Low 2.5 - 4 .5 mg/dL [place] Prothrombin Timeon 0 INR Coag (PPP) [Relative time] 0.9 Normal 0.9-1.1 [facility] Comment on above: Result Comment: Mark mmended Anticoagulant Therapy: SEE BELOW ----- INR of 2.0 - 3.0 : - Prophylaxis of Venous Thrombosis (high-risk surgery) - Treatment of Venous Thrombosis - Treatment of Pulmonary Embolism (Includes tissue heart valves, Acute Myocardial Infarction to prevent systemic embolism, Valvular Heart Disease, and Atrial Fibrillation) ----- INR of 2.5 - 3.5 : - Mechanical Prosthetic Valves (high risk) - If oral anticoagulant therapy is used to prevent Myocardial Infarction Performed By: #### H CANDELARIA CEDILLO BMP3 #### [facility] [address] [place] [address] PT Coag (PPP) [Time] 10.3 s Normal 9.0-12.0 [facility] Comment on above: Result Comment: . Performed By: #### H CANDELARIA CEDILLO BMP3 #### [address] [address] [place] [address] Protime-INRon 10-19-2019 INR Coag (PPP) [Relative time] 0.9 {INR} [place] Comment on above: Recommended Anticoag ulant Therapy: SEE BELOW ----- INR of 2.0 - 3.0 : - Prophylaxis of Venous Thrombosis (high-risk surgery) - Treatment of Venous Thrombosis - Treatment of Pulmonary Embolism (Includes tissue heart valves, Acute Myocardial Infarction to prevent systemic embolism, Valvular Heart Disease, and Atrial Fibrillation) ----- INR of 2.5 - 3.5 : - Mechanical Prosthetic Valves (high risk) - If oral anticoagulant therapy is used to prevent Myocardial Infarction PT Coag (PPP) [Time] 10.3 s 9 - 12 s [place] Comment on above: . Test Performed by [facility], [address] [place] [id number] [place] [address] Basic Metabolic Panelon 09-22 Anion gap [Moles/Vol] 4 Normal [facility] Comment on above: Performed By: #### H CANDELARIA CEDILLO, BMP3 #### [facility] [address] [place] [address] Calcium [Mass/Vol] 8.1 mg/dL Low 8.4-10.4 [facility] Comment on above: Performed By: #### H CANDELARIA CEDILLO, BMP3 #### [facility] [address] [place] [address] CO2 [Moles/Vol] 24 mmol/L Normal 22-30 [facility] Comment on above: Performed By: #### H CANDELARIA CEDILLO, BMP3 #### [place] [address] [place], [place] Creatinine [Mass/Vol] 0.40 mg/dL Low 0.52-1.25 [facility] Comment on above: Performed By: #### H NGUYEN MG3, BMP3 #### [place] [address] [place], [place] GFR/1.73 sq M predicted among blacks MDRD (S/P/Bld) [Vol rate/Area] mL/min/{1.73_m2} Normal >60 [facility] Comment on above: Performed By: #### H CANDELARIA CEDILLO BMP3 #### [place] [address] [place], [place] GFR/1.73 sq M predicted among non-blacks MDRD (S/P/Bld) [Vol rate/Area] mL/min/{1.73_m2} Normal >60 [facility] Comment on above: Result Comment: KDIG O guidelines provide the following GFR categories: Stage GFR(ml/min/1.73 m2) Terms G1 >=90 Normal or high G2 60-89 Mildly decreased* G3a 45-59 Mildly to moderately decreased G3b 30-44 Moderately to severely decreased G4 15-29 Severely decreased G5 <15 Kidney failure *Relative to young adult level. In the absence of evidence of kidney damage, neither GFR category G1 nor G2 fulfill the criteria for CKD. The CKD-EPI equation is validated in individuals 18 years of age and older. Currently the best equation for estimating glomerular filtration rate (GFR) from serum creatinine in children is the Bedside Oshea equation. It is less accurate in patients with extremes of muscle mass, restriction of dietary protein, ingestion of creatine, extra-renal metabolism of creatinine, or treatment with medications that affect renal tubular creatinine secretion. Performed By: #### H NGUYEN MG3, BMP3 #### [facility] [address] [place], [place] Glucose [Mass/Vol] 85 mg/dL Normal 70-100 [facility] Comment on above: Performed By: #### H MG NGUYEN3, BMP3 #### [address] [address] Urea nitrogen [Mass/Vol] 8 mg/dL Normal 7-20 [facility] Comment on above: Performed By: #### H NGUYEN MG3, BMP3 #### [facility] [address] [place] [address] Potassium [Moles/Vol] 3.4 mmol/L Low 3.5-5.1 [facility] Comment on above: Performed By: #### H NGUYEN MG3, BMP3 #### [facility] [address] [place] [address] Sodium [Moles/Vol] 133 mmol/L Low 135-145 [facility] Comment on above: Performed By: #### H NGUYEN MG3, BMP3 #### [facility] [address] [place] [address] Chloride [Moles/Vol] 104 mmol/L Normal 98-107 [facility] Comment on above: Performed By: #### H NGUYEN MG3, BMP3 #### [facility] [address] [place], [place] Anion gap [Moles/Vol] 4 mmol/L [place], [place] Calcium [Mass/Vol] 8.1 mg/dL Low 8.4 - 10. 4 mg/dL [place], [place] Chloride [Moles/Vol] 104 mmol/L 98 - 10 7 mmol/L [place] CO2 [Moles/Vol] 24 mmol/L 22 - 30 mmol/L [place] Creatinine [Mass/Vol] 0.4 mg/dL Low 0.52 - 1.25 mg/dL [place], [place] EGFR IF NonAfrican [place]an >90.0 >60 mL/min [place] Comment on above: KDIGO guidelines pro vide the following GFR categories: Stage GFR(ml/min/1.73 m2) Terms G1 >=90 Normal or high G2 60-89 Mildly decreased* G3a 45-59 Mildly to moderately decreased G3b 30-44 Moderately to severely decreased G4 15-29 Severely decreased G5 <15 Kidney failure *Relative to young adult level. In the absence of evidence of kidney damage, neither GFR category G1 nor G2 fulfill the criteria for CKD. The CKD-EPI equation is validated in individuals 18 years of age and older. Currently the best equation for estimating glomerular filtration rate (GFR) from serum creatinine in children is the Bedside Oshea equation. It is less accurate in patients with extremes of muscle mass, restriction of dietary protein, ingestion of creatine, extra-renal metabolism of creatinine, or treatment with medications that affect renal tubular creatinine secretion. GFR/1.73 sq M predicted among blacks MDRD (S/P/Bld) [Vol rate/Area] mL/min/{1.73_m2} >60 mL/min [place], [place] Glucose [Mass/Vol] 85 mg/dL 70 - 100 mg/dL [place] Potassium [Moles/Vol] 3.4 mmol/L Low 3.5 - 5.1 mmol/L [place] Sodium [Moles/Vol] 133 mmol/L Low 135 - 145 mmol/L [place] Urea nitrogen [Mass/Vol] 8 mg/dL 7 - 20 mg/dL [place] CBCon 10-18-2019 Erythrocyte distribution width (RBC) [Ratio] 21.6 % High 11.5 - 14.5 % [place] Hematocrit (Bld) [Volume fraction] 30.0 % Low 35 - 47 % [place] Hemoglobin (Bld) [Mass/Vol] 9.6 g/dL Low 11.7 - 16 g/dL [place] Interpretation and review of laboratory results Abnormal [place] MCH (RBC) [Entitic mass] 27.5 pg 26 - 34 pg [place] MCHC (RBC) [Mass/Vol] 32.0 % 32 - 36 % [place], [place] MCV (RBC) [Entitic vol] 85.8 fL 79 - 98 fL [place], [place] Platelet mean volume (Bld) [Entitic vol] 8.9 fL 7.4 - 10.4 fL [place], [place] Platelets (Bld) [#/Vol] 750 10*3/uL High 140 - 440 10*3/uL [place], [place] RBC (Bld) [#/Vol] 3.49 10*6/uL Low 3.8 - 5.2 10*6/uL [place] WBC (Bld) [#/Vol] 12.5 10*3/uL High 3.6 - 10.7 10*3/uL [place] Test Performed by [facility], [address] [place] [address] [place], [place] Calcium, Ionizedon 0 Ionized Ca 4.40 mg/dL 4.3 - 5.2 mg/dL [place], [place] pH (Bld) 7.39 [pH] [place] Test Performed by [facility], [address] [place] [address] [place], [place] Calcium,Ionizedon 10-18-2019 Ionized Ca,Measured 4.40 mg/dL Normal 4.30-5.20 [facility] Comment on above: Performed By: #### H EMOG, MG3, BMP3 #### [employer] [place] [address] [place] [address] pH, Ionized Calcium 7.39 Normal 7.31-7.46 [facility] Comment on above: Performed By: #### H EMOG, MG3, BMP3 #### [address] [place] [address] [place] [address] Glucose,Bedsideon 10-18-2019 Glucose [Mass/Vol] 129 mg/dL High 70-100 [facility] Comment on above: Result Comment: Test performed by glucose meter. Results may be 10%-15% lower than serum/plasma values. (CLIA ID [id number]) Performed By: #### H EMOG, MG3, BMP3 #### [employer] [facility] [place] [address] [place] [address] Glucose [Mass/Vol] 168 mg/dL High 70-100 [facility] Comment on above: Result Comment: Test performed by glucose meter. Results may be 10%-15% lower than serum/plasma values. (CLIA ID [id number]) Performed By: #### H EMOG, MG3, BMP3 #### [employer] [facility] [address] [place] Glucose [Mass/Vol] 101 mg/dL High 70-100 [facility] Comment on above: Result Comment: Test performed by glucose meter. Results may be 10%-15% lower than serum/plasma values. (CLIA ID [id number]) Performed By: #### H EMOG, MG3, BMP3 #### [facility] [address] [place], [place] Glucose [Mass/Vol] 95 mg/dL Normal 70-100 [facility] Comment on above: Result Comment: Test performed by glucose meter. Results may be 10%-15% lower than serum/plasma values. (CLIA ID [id number]) Performed By: #### H EMOG, MG3, BMP3 #### [address] [place] [address] [address] [place], [place] Glucose [Mass/Vol] 106 mg/dL High 70-100 [facility] Comment on above: Result Comment: Test performed by glucose meter. Results may be 10%-15% lower than serum/plasma values. (CLIA ID [id number]) Performed By: #### H EMOG, MG3, BMP3 #### [address] [place] [address] [address] [place], [place] Hemogramon 10-18-2019 Erythrocyte distribution width (RBC) [Ratio] 21.6 % High 11.5-14.5 [facility] Comment on above: Performed By: #### H EMOG, MG3, BMP3 #### [facility] [address] [place], [place] Hematocrit (Bld) [Volume fraction] 30.0 % Low 35.0-47.0 [facility] Comment on above: Performed By: #### H EMOG, MG3, BMP3 #### [employer] [address] [place], [place] Hemoglobin (Bld) [Mass/Vol] 9.6 g/dL Low 11.7-16.0 [facility] Comment on above: Performed By: #### H EMOG, MG3, BMP3 #### [facility] [address] [place], [place] MCH (RBC) [Entitic mass] 27.5 pg Normal 26.0-34.0 [facility] Comment on above: Performed By: #### H NGUYEN MG3, BMP3 #### [facility] [address] [place], [place] MCHC (RBC) [Mass/Vol] 32.0 % Normal 32.0-36.0 [facility] Comment on above: Performed By: #### Herman CEDILLO MG3, BMP3 #### [place] [address] [address] [place], [place] MCV (RBC) [Entitic vol] 85.8 fL Normal 79.0-98.0 [facility] Comment on above: Performed By: #### Herman CEDILLO MG3, BMP3 #### [place] [address] [place], [place] Platelet mean volume (Bld) [Entitic vol] 8.9 fL Normal 7.4-10.4 [facility] Comment on above: Performed By: #### Herman CEDILLO MG3, BMP3 #### [place] [address], [place] Platelets (Bld) [#/Vol] 750 10*3/uL High 140-440 [facility] Comment on above: Performed By: #### Herman CEDILLO MG3, BMP3 #### [place] [address] [address], [place] RBC (Bld) [#/Vol] 3.49 10*6/uL Low 3.80-5.20 [facility] Comment on above: Performed By: #### H NGUYEN, MG3, BMP3 #### [place] [address] [address], [place] WBC (Bld) [#/Vol] 12.5 10*3/uL High 3.6-10.7 [facility] Comment on above: Performed By: #### Herman EMOPerla, MG3, BMP3 #### [place] [address] [place], [place] Hepatic Functionon 0 ALT [Catalytic activity/Vol] 22 U/L Normal 0-34 [facility] Comment on above: Result Comment: The ALT test is performed by an updated assay method. Please note that the reference intervals have been changed and are now sex specific. Performed By: #### H NGUYEN MG3, BMP3 #### [facility] [address] [place] [address] ALP [Catalytic activity/Vol] 113 U/L Normal 38-126 [facility] Comment on above: Performed By: #### H NGUYEN MG3, BMP3 #### [facility] [address] [place], [place] AST [Catalytic activity/Vol] 32 U/L Normal 15-46 [facility] Comment on above: Performed By: #### H NGUYEN MG3, BMP3 #### [facility] [address] [place], [place] Bilirubin [Mass/Vol] 0.3 mg/dL Normal 0.2-1.3 [facility] Comment on above: Performed By: #### H NGUYEN MG3, BMP3 #### [facility] [address] [place], [place] Bilirubin.direct [Mass/Vol] 0.0 mg/dL Normal 0.0-0.3 [facility] Comment on above: Performed By: #### H NGUYEN MG3, BMP3 #### [facility] [address], [place] Protein [Mass/Vol] 5.4 g/dL Low 6.3-8.2 [facility] Comment on above: Performed By: #### H NGUYEN MG3, BMP3 #### [facility] [address] [place] [address] Albumin [Mass/Vol] 2.5 g/dL Low 3.5-5.0 [facility] Comment on above: Performed By: #### H NGUYEN MG3, BMP3 #### [facility] [address] [place] [address] Hepatic Function Panelon Albumin [Mass/Vol] 2.5 g/dL Low 3.5 - 5 g/dL [place], [place] ALP [Catalytic activity/Vol] 113 U/L 38 - 126 U/L [place], [place] ALT [Catalytic activity/Vol] 22 U/L 0 - 34 U/L [place] Comment on above: The ALT test is perf ormed by an updated assay method. Please note that the reference intervals have been changed and are now sex specific. AST [Catalytic activity/Vol] 32 U/L 15 - 46 U/L [place] Bilirubin Ql (U) 0.3 mg/dL 0.2 - 1.3 mg/dL [place] Bilirubin.direct [Mass/Vol] 0.0 mg/dL 0 - 0.3 mg/dL [place] Protein [Mass/Vol] 5.4 g/dL Low 6.3 - 8.2 g/dL [place] Magnesiumon 10-18-2019 Magnesium [Mass/Vol] 1.7 mg/dL Normal 1.6-2.3 [facility] Comment on above: Performed By: #### H EMOG, MG3, BMP3 #### [address] [address] Magnesium [Mass/Vol] 1.7 mg/dL 1.6 - 2 .3 mg/dL [place] Otheron 10-18-2019 Interpretation and review of laboratory results Abnormal [place] Test Performed by [facility], [address] [place] [address] [place] POCT Glucoseon 10-18-2019 Glucose [Mass/Vol] 129 mg/dL High 70 - 100 mg/dL [place] Comment on above: Test performed by gl ucose meter. Results may be 10%-15% lower than serum/plasma values. (CLIA ID [id number]) Interpretation and review of laboratory results Abnormal [place] Test Performed by [facility], [facility] [place] [address] [place], [place] Glucose [Mass/Vol] 168 mg/dL High 70 - 100 mg/dL [place] Comment on above: Test performed by gl ucose meter. Results may be 10%-15% lower than serum/plasma values. (CLIA ID [id number]) Interpretation and review of laboratory results Abnormal [place] Test Performed by [facility], [address] [place] [id number] [place] [address] Glucose [Mass/Vol] 101 mg/dL High 70 - 100 mg/dL [place] Comment on above: Test performed by gl ucose meter. Results may be 10%-15% lower than serum/plasma values. (CLIA ID [id number]) Interpretation and review of laboratory results Abnormal [place] Test Performed by [id number] [place] [address] Glucose [Mass/Vol] 95 mg/dL 70 - 100 mg/dL [place] Comment on above: Test performed by gl ucose meter. Results may be 10%-15% lower than serum/plasma values. (CLIA ID [id number]) [facility], [facility] [place] [place] [id number] [place] [address] Phosphoruson 10-18-2019 Phosphate [Mass/Vol] 2.7 mg/dL Normal 2.5-4.5 [facility] Comment on above: Performed By: #### H EMOG, MG3, BMP3 #### [place] [address] [place] [address] Phosphate [Mass/Vol] 2.7 mg/dL 2.5 - 4 .5 mg/dL [place] Prothrombin Timeon 0 INR Coag (PPP) [Relative time] 1.0 Normal 0.9-1.1 [facility] Comment on above: Result Comment: Mark mmended Anticoagulant Therapy: SEE BELOW ----- INR of 2.0 - 3.0 : - Prophylaxis of Venous Thrombosis (high-risk surgery) - Treatment of Venous Thrombosis - Treatment of Pulmonary Embolism (Includes tissue heart valves, Acute Myocardial Infarction to prevent systemic embolism, Valvular Heart Disease, and Atrial Fibrillation) ----- INR of 2.5 - 3.5 : - Mechanical Prosthetic Valves (high risk) - If oral anticoagulant therapy is used to prevent Myocardial Infarction Performed By: #### H CANDELARIA CEDILLO, BMP3 #### [address] PT Coag (PPP) [Time] 10.6 s Normal 9.0-12.0 [facility] Comment on above: Result Comment: . Performed By: #### H CANDELARIA CEDILLO, BMP3 #### [place] [address] [place], [place] Protime-INRon 10-18-2019 INR Coag (PPP) [Relative time] 1.0 {INR} [place], [place] Comment on above: Recommended Anticoag ulant Therapy: SEE BELOW ----- INR of 2.0 - 3.0 : - Prophylaxis of Venous Thrombosis (high-risk surgery) - Treatment of Venous Thrombosis - Treatment of Pulmonary Embolism (Includes tissue heart valves, Acute Myocardial Infarction to prevent systemic embolism, Valvular Heart Disease, and Atrial Fibrillation) ----- INR of 2.5 - 3.5 : - Mechanical Prosthetic Valves (high risk) - If oral anticoagulant therapy is used to prevent Myocardial Infarction PT Coag (PPP) [Time] 10.6 s 9 - 12 s [place], [place] Comment on above: . Test Performed by [facility] [employer] [address] Basic Metabolic Panelon 09-22 Calcium [Mass/Vol] 8.1 mg/dL Low 8.4-10.4 [facility] Comment on above: Performed By: #### H CANDELARIA CEDILLO, BMP3 #### [place] [address] [place], [place] Glucose [Mass/Vol] 134 mg/dL High 70-100 [facility] Comment on above: Performed By: #### H CANDELARIA CEDILLO BMP3 #### [address] Urea nitrogen [Mass/Vol] 9 mg/dL Normal 7-20 [facility] Comment on above: Performed By: #### H CANDELARIA CEDILLO, BMP3 #### [address] Anion gap [Moles/Vol] 4 Normal [facility] Comment on above: Performed By: #### H EMOG, MG3, BMP3 #### [facility] [address] [place], [place] CO2 [Moles/Vol] 28 mmol/L Normal 22-30 [facility] Comment on above: Performed By: #### H EMETERIOG, MG3, BMP3 #### [address] Creatinine [Mass/Vol] 0.44 mg/dL Low 0.52-1.25 [facility] Comment on above: Performed By: #### H NGUYEN, MG3, BMP3 #### [address] GFR/1.73 sq M predicted among blacks MDRD (S/P/Bld) [Vol rate/Area] mL/min/{1.73_m2} Normal >60 [facility] Comment on above: Performed By: #### H EMOG, MG3, BMP3 #### [address] GFR/1.73 sq M predicted among non-blacks MDRD (S/P/Bld) [Vol rate/Area] mL/min/{1.73_m2} Normal >60 [facility] Comment on above: Result Comment: KDIG O guidelines provide the following GFR categories: Stage GFR(ml/min/1.73 m2) Terms G1 >=90 Normal or high G2 60-89 Mildly decreased* G3a 45-59 Mildly to moderately decreased G3b 30-44 Moderately to severely decreased G4 15-29 Severely decreased G5 <15 Kidney failure *Relative to young adult level. In the absence of evidence of kidney damage, neither GFR category G1 nor G2 fulfill the criteria for CKD. The CKD-EPI equation is validated in individuals 18 years of age and older. Currently the best equation for estimating glomerular filtration rate (GFR) from serum creatinine in children is the Bedside Oshea equation. It is less accurate in patients with extremes of muscle mass, restriction of dietary protein, ingestion of creatine, extra-renal metabolism of creatinine, or treatment with medications that affect renal tubular creatinine secretion. Performed By: #### H EMOG, MG3, BMP3 #### [facility] [address] [place], [place] Chloride [Moles/Vol] 100 mmol/L Normal 98-107 [facility] Comment on above: Performed By: #### H EMOG, MG3, BMP3 #### [facility] [address] [place], [place] Potassium [Moles/Vol] 3.5 mmol/L Normal 3.5-5.1 [facility] Comment on above: Performed By: #### H EMOG, MG3, BMP3 #### [facility] [address] [place], [place] Sodium [Moles/Vol] 132 mmol/L Low 135-145 [facility] Comment on above: Performed By: #### H EMOG, MG3, BMP3 #### [facility] [address] [place], [place] Anion gap [Moles/Vol] 4 mmol/L [place], [place] Calcium [Mass/Vol] 8.1 mg/dL Low 8.4 - 10. 4 mg/dL [place] Chloride [Moles/Vol] 100 mmol/L 98 - 10 7 mmol/L [place] CO2 [Moles/Vol] 28 mmol/L 22 - 30 mmol/L [place] Creatinine [Mass/Vol] 0.44 mg/dL Low 0.52 - 1.25 mg/dL [place] EGFR IF NonAfrican [place]an >90.0 >60 mL/min [place] Comment on above: KDIGO guidelines pro vide the following GFR categories: Stage GFR(ml/min/1.73 m2) Terms G1 >=90 Normal or high G2 60-89 Mildly decreased* G3a 45-59 Mildly to moderately decreased G3b 30-44 Moderately to severely decreased G4 15-29 Severely decreased G5 <15 Kidney failure *Relative to young adult level. In the absence of evidence of kidney damage, neither GFR category G1 nor G2 fulfill the criteria for CKD. The CKD-EPI equation is validated in individuals 18 years of age and older. Currently the best equation for estimating glomerular filtration rate (GFR) from serum creatinine in children is the Bedside Oshea equation. It is less accurate in patients with extremes of muscle mass, restriction of dietary protein, ingestion of creatine, extra-renal metabolism of creatinine, or treatment with medications that affect renal tubular creatinine secretion. GFR/1.73 sq M predicted among blacks MDRD (S/P/Bld) [Vol rate/Area] mL/min/{1.73_m2} >60 mL/min [place], [place] Glucose [Mass/Vol] 134 mg/dL High 70 - 100 mg/dL [place] Potassium [Moles/Vol] 3.5 mmol/L 3.5 - 5.1 mmol/L [place] Sodium [Moles/Vol] 132 mmol/L Low 135 - 145 mmol/L [place] Urea nitrogen [Mass/Vol] 9 mg/dL 7 - 20 mg/dL [place] CBCon 10-17-2019 Erythrocyte distribution width (RBC) [Ratio] 22.0 % High 11.5 - 14.5 % [place] Hematocrit (Bld) [Volume fraction] 31.5 % Low 35 - 47 % [place] Hemoglobin (Bld) [Mass/Vol] 10.1 g/dL Low 11.7 - 16 g/dL [place] Interpretation and review of laboratory results Abnormal [place] MCH (RBC) [Entitic mass] 27.0 pg 26 - 34 pg [place] MCHC (RBC) [Mass/Vol] 32.1 % 32 - 36 % [place], [place] MCV (RBC) [Entitic vol] 84.0 fL 79 - 98 fL [place], [place] Platelet mean volume (Bld) [Entitic vol] 9.2 fL 7.4 - 10.4 fL [place] Platelets (Bld) [#/Vol] 693 10*3/uL High 140 - 440 10*3/uL [place] RBC (Bld) [#/Vol] 3.74 10*6/uL Low 3.8 - 5.2 10*6/uL [place] WBC (Bld) [#/Vol] 14.4 10*3/uL High 3.6 - 10.7 10*3/uL [facility], [place] Test Performed by [facility], [facility] [place], [place] [address] [facility], [place] Calcium, Ionizedon 0 Interpretation and review of laboratory results Abnormal [place] Ionized Ca 4.20 mg/dL Low 4.3 - 5.2 mg/dL [place] pH (Bld) 7.47 [pH] High [facility], [place] Test Performed by [facility], [facility] [address] [facility] [place] [address] [facility], [place] Calcium,Ionizedon 10-17-2019 Ionized Ca,Measured 4.20 mg/dL Low 4.30-5.20 [facility] Comment on above: Performed By: #### H EMOG, MG3, BMP3 #### [employer] [place] [address] [place] [address] pH, Ionized Calcium 7.47 High 7.31-7.46 [facility] Comment on above: Performed By: #### H EMOG, MG3, BMP3 #### [facility] [address] [place] [address] Glucose,Bedsideon 10-17-2019 Glucose [Mass/Vol] 217 mg/dL High 70-100 [facility] Comment on above: Result Comment: Test performed by glucose meter. Results may be 10%-15% lower than serum/plasma values. (CLIA ID [id number]) Performed By: #### H EMOG, MG3, BMP3 #### [facility] [address] [place] [address] Glucose [Mass/Vol] 228 mg/dL High 70-100 [facility] Comment on above: Result Comment: Test performed by glucose meter. Results may be 10%-15% lower than serum/plasma values. (CLIA ID [id number]) Performed By: #### H EMOG, MG3, BMP3 #### [facility] [address] [place] [address] Glucose [Mass/Vol] 131 mg/dL High 70-100 [facility] Comment on above: Result Comment: Test performed by glucose meter. Results may be 10%-15% lower than serum/plasma values. (CLIA ID [id number]) Performed By: #### H NGUYEN MG3, BMP3 #### [place] [address] [address], [place] Hemogramon 10-17-2019 Erythrocyte distribution width (RBC) [Ratio] 22.0 % High 11.5-14.5 [facility] Comment on above: Performed By: #### H NGUYEN MG3, BMP3 #### [place] [address] [place] Hematocrit (Bld) [Volume fraction] 31.5 % Low 35.0-47.0 [facility] Comment on above: Performed By: #### H NGUYEN, MG3, BMP3 #### [place] [address] [place], [place] Hemoglobin (Bld) [Mass/Vol] 10.1 g/dL Low 11.7-16.0 [facility] Comment on above: Performed By: #### H NGUYEN MG3, BMP3 #### [place] [address] [place], [place] MCH (RBC) [Entitic mass] 27.0 pg Normal 26.0-34.0 [facility] Comment on above: Performed By: #### H EMOG, MG3, BMP3 #### [place] [address] [place] MCHC (RBC) [Mass/Vol] 32.1 % Normal 32.0-36.0 [facility] Comment on above: Performed By: #### H EMOG, MG3, BMP3 #### [place] [address] [place], [place] MCV (RBC) [Entitic vol] 84.0 fL Normal 79.0-98.0 [facility] Comment on above: Performed By: #### H EMOG, MG3, BMP3 #### [place] [address] [place] Platelet mean volume (Bld) [Entitic vol] 9.2 fL Normal 7.4-10.4 [facility] Comment on above: Performed By: #### H NGUYEN MG3, BMP3 #### [facility] [address] [place], [place] Platelets (Bld) [#/Vol] 693 10*3/uL High 140-440 [facility] Comment on above: Performed By: #### H NGUYEN MG3, BMP3 #### [facility] [address] [place], [place] RBC (Bld) [#/Vol] 3.74 10*6/uL Low 3.80-5.20 [facility] Comment on above: Performed By: #### H NGUYEN MG3, BMP3 #### [place] [address] [place] WBC (Bld) [#/Vol] 14.4 10*3/uL High 3.6-10.7 [facility] Comment on above: Performed By: #### H NGUYEN MG3, BMP3 #### [place] [address] [place], [place] Hepatic Functionon 0 ALP [Catalytic activity/Vol] 148 U/L High 38-126 [facility] Comment on above: Performed By: #### H NGUYEN MG3, BMP3 #### [place] [address] [place], [place] ALT [Catalytic activity/Vol] 21 U/L Normal 0-34 [facility] Comment on above: Result Comment: The ALT test is performed by an updated assay method. Please note that the reference intervals have been changed and are now sex specific. Performed By: #### H NGUYEN MG3, BMP3 #### [facility] [address] [place], [place] AST [Catalytic activity/Vol] 36 U/L Normal 15-46 [facility] Comment on above: Performed By: #### H EMOPerla MG3, BMP3 #### [facility] [address] [place], [place] Protein [Mass/Vol] 5.5 g/dL Low 6.3-8.2 [facility] Comment on above: Performed By: #### H NGUYEN MG3, BMP3 #### [place] [address] [address] [place], [place] Bilirubin [Mass/Vol] 0.4 mg/dL Normal 0.2-1.3 [facility] Comment on above: Performed By: #### H NGUYEN MG3, BMP3 #### [place] [address] [address] [place], [place] Bilirubin.direct [Mass/Vol] 0.0 mg/dL Normal 0.0-0.3 [facility] Comment on above: Performed By: #### H NGUYEN MG3, BMP3 #### [place] [address], [place] Albumin [Mass/Vol] 2.7 g/dL Low 3.5-5.0 [facility] Comment on above: Performed By: #### H NGUYEN MG3, BMP3 #### [place] [address] [place], [place] Hepatic Function Panelon Albumin [Mass/Vol] 2.7 g/dL Low 3.5 - 5 g/dL [place], [place] ALP [Catalytic activity/Vol] 148 U/L High 38 - 126 U/L [place], [place] ALT [Catalytic activity/Vol] 21 U/L 0 - 34 U/L [place] Comment on above: The ALT test is perf ormed by an updated assay method. Please note that the reference intervals have been changed and are now sex specific. AST [Catalytic activity/Vol] 36 U/L 15 - 46 U/L [place], [place] Bilirubin Ql (U) 0.4 mg/dL 0.2 - 1.3 mg/dL [place] Bilirubin.direct [Mass/Vol] 0.0 mg/dL 0 - 0.3 mg/dL [place] Protein [Mass/Vol] 5.5 g/dL Low 6.3 - 8.2 g/dL [place] Magnesiumon 10-17-2019 Magnesium [Mass/Vol] 1.9 mg/dL Normal 1.6-2.3 [facility] Comment on above: Performed By: #### H EMOG, MG3, BMP3 #### [place] [address] [place] [address] Magnesium [Mass/Vol] 1.9 mg/dL 1.6 - 2 .3 mg/dL [facility], [place] Otheron 10-17-2019 Interpretation and review of laboratory results Abnormal [facility] [place], [place] Test Performed by [employer] [facility], [facility] [place] [address] [facility], [place] POCT Glucoseon 10-17-2019 Glucose [Mass/Vol] 106 mg/dL High 70 - 100 mg/dL [place], [place] Comment on above: Test performed by gl ucose meter. Results may be 10%-15% lower than serum/plasma values. (CLIA ID [id number]) Interpretation and review of laboratory results Abnormal [facility] [place], [place] Test Performed by [employer], [facility] [place] [address] [facility], [place] Glucose [Mass/Vol] 217 mg/dL High 70 - 100 mg/dL [place], [place] Comment on above: Test performed by gl ucose meter. Results may be 10%-15% lower than serum/plasma values. (CLIA ID [id number]) Interpretation and review of laboratory results Abnormal [facility] [place], [place] Test Performed by [employer], [facility] [place] [address] [facility], [place] Glucose [Mass/Vol] 228 mg/dL High 70 - 100 mg/dL [place], [place] Comment on above: Test performed by gl ucose meter. Results may be 10%-15% lower than serum/plasma values. (CLIA ID [id number]) Interpretation and review of laboratory results Abnormal [facility] [place] Test Performed by [employer], [facility] [place] [address] [facility], [place] Glucose [Mass/Vol] 131 mg/dL High 70 - 100 mg/dL [facility], [place] Comment on above: Test performed by gl ucose meter. Results may be 10%-15% lower than serum/plasma values. (CLIA ID [id number]) Interpretation and review of laboratory results Abnormal [place], [place] Test Performed by [facility], [address] [place] [address] [place] Phosphoruson 10-17-2019 Phosphate [Mass/Vol] 3.7 mg/dL Normal 2.5-4.5 [facility] Comment on above: Performed By: #### H CANDELARIA CEDILLO, BMP3 #### [address] [address] Phosphate [Mass/Vol] 3.7 mg/dL 2.5 - 4 .5 mg/dL [place] Prothrombin Timeon 0 INR Coag (PPP) [Relative time] 1.0 Normal 0.9-1.1 [facility] Comment on above: Result Comment: Mark mmended Anticoagulant Therapy: SEE BELOW ----- INR of 2.0 - 3.0 : - Prophylaxis of Venous Thrombosis (high-risk surgery) - Treatment of Venous Thrombosis - Treatment of Pulmonary Embolism (Includes tissue heart valves, Acute Myocardial Infarction to prevent systemic embolism, Valvular Heart Disease, and Atrial Fibrillation) ----- INR of 2.5 - 3.5 : - Mechanical Prosthetic Valves (high risk) - If oral anticoagulant therapy is used to prevent Myocardial Infarction Performed By: #### H NGUYEN MG3, BMP3 #### [address] [address] PT Coag (PPP) [Time] 10.8 s Normal 9.0-12.0 [facility] Comment on above: Result Comment: . Performed By: #### H NGUYEN MG3, BMP3 #### [address] [address] Protime-INRon 10-17-2019 INR Coag (PPP) [Relative time] 1.0 {INR} [place], [place] Comment on above: Recommended Anticoag ulant Therapy: SEE BELOW ----- INR of 2.0 - 3.0 : - Prophylaxis of Venous Thrombosis (high-risk surgery) - Treatment of Venous Thrombosis - Treatment of Pulmonary Embolism (Includes tissue heart valves, Acute Myocardial Infarction to prevent systemic embolism, Valvular Heart Disease, and Atrial Fibrillation) ----- INR of 2.5 - 3.5 : - Mechanical Prosthetic Valves (high risk) - If oral anticoagulant therapy is used to prevent Myocardial Infarction PT Coag (PPP) [Time] 10.8 s 9 - 12 s [place], [place] Comment on above: . Test Performed by [facility], [address] [place] [address] [place], [place] Basic Metabolic Panelon 08- Calcium [Mass/Vol] 8.7 mg/dL Normal 8.4-10.4 [facility] Comment on above: Performed By: #### H NGUYEN MG3, BMP3 #### [address] Anion gap [Moles/Vol] 4 Normal [facility] Comment on above: Performed By: #### H NGUYEN MG3, BMP3 #### [address] CO2 [Moles/Vol] 33 mmol/L High 22-30 [facility] Comment on above: Performed By: #### H NGUYEN MG3, BMP3 #### [address] Glucose [Mass/Vol] 255 mg/dL High 70-100 [facility] Comment on above: Performed By: #### H NGUYEN MG3, BMP3 #### [address] Urea nitrogen [Mass/Vol] 8 mg/dL Normal 7-20 [facility] Comment on above: Performed By: #### Herman CEDILLO MG3, BMP3 #### [address] Creatinine [Mass/Vol] 0.46 mg/dL Low 0.52-1.25 [facility] Comment on above: Performed By: #### H EMOG, MG3, BMP3 #### [address] [address] GFR/1.73 sq M predicted among blacks MDRD (S/P/Bld) [Vol rate/Area] mL/min/{1.73_m2} Normal >60 [facility] Comment on above: Performed By: #### H CANDELARIA CEDILLO BMP3 #### [facility] [address] [place] [address] GFR/1.73 sq M predicted among non-blacks MDRD (S/P/Bld) [Vol rate/Area] mL/min/{1.73_m2} Normal >60 [facility] Comment on above: Result Comment: KDIG O guidelines provide the following GFR categories: Stage GFR(ml/min/1.73 m2) Terms G1 >=90 Normal or high G2 60-89 Mildly decreased* G3a 45-59 Mildly to moderately decreased G3b 30-44 Moderately to severely decreased G4 15-29 Severely decreased G5 <15 Kidney failure *Relative to young adult level. In the absence of evidence of kidney damage, neither GFR category G1 nor G2 fulfill the criteria for CKD. The CKD-EPI equation is validated in individuals 18 years of age and older. Currently the best equation for estimating glomerular filtration rate (GFR) from serum creatinine in children is the Bedside Oshea equation. It is less accurate in patients with extremes of muscle mass, restriction of dietary protein, ingestion of creatine, extra-renal metabolism of creatinine, or treatment with medications that affect renal tubular creatinine secretion. Performed By: #### H CANDELARIA CEDILLO, BMP3 #### [facility] [address] [place], [place] Chloride [Moles/Vol] 97 mmol/L Low 98-107 [facility] Comment on above: Performed By: #### H CANDELARIA CEDILLO, BMP3 #### [facility] [address] [place] [address] Potassium [Moles/Vol] 4.1 mmol/L Normal 3.5-5.1 [facility] Comment on above: Performed By: #### H MG NGUYEN3, BMP3 #### [facility] [address] [place] [address] Sodium [Moles/Vol] 134 mmol/L Low 135-145 [facility] Comment on above: Performed By: #### H [facility], MG3, BMP3 #### [facility] [address] [place] [address] Anion gap [Moles/Vol] 4 mmol/L [place], [place] Calcium [Mass/Vol] 8.7 mg/dL 8.4 - 10. 4 mg/dL [place], [place] Chloride [Moles/Vol] 97 mmol/L Low 98 - 10 7 mmol/L [place] CO2 [Moles/Vol] 33 mmol/L High 22 - 30 mmol/L [place] Creatinine [Mass/Vol] 0.46 mg/dL Low 0.52 - 1.25 mg/dL [place], [place] EGFR IF NonAfrican [place]an >90.0 >60 mL/min [place], [place] Comment on above: KDIGO guidelines pro vide the following GFR categories: Stage GFR(ml/min/1.73 m2) Terms G1 >=90 Normal or high G2 60-89 Mildly decreased* G3a 45-59 Mildly to moderately decreased G3b 30-44 Moderately to severely decreased G4 15-29 Severely decreased G5 <15 Kidney failure *Relative to young adult level. In the absence of evidence of kidney damage, neither GFR category G1 nor G2 fulfill the criteria for CKD. The CKD-EPI equation is validated in individuals 18 years of age and older. Currently the best equation for estimating glomerular filtration rate (GFR) from serum creatinine in children is the Bedside Oshea equation. It is less accurate in patients with extremes of muscle mass, restriction of dietary protein, ingestion of creatine, extra-renal metabolism of creatinine, or treatment with medications that affect renal tubular creatinine secretion. GFR/1.73 sq M predicted among blacks MDRD (S/P/Bld) [Vol rate/Area] mL/min/{1.73_m2} >60 mL/min [place], [place] Glucose [Mass/Vol] 255 mg/dL High 70 - 100 mg/dL [place] Potassium [Moles/Vol] 4.1 mmol/L 3.5 - 5.1 mmol/L [place] Sodium [Moles/Vol] 134 mmol/L Low 135 - 145 mmol/L [place] Urea nitrogen [Mass/Vol] 8 mg/dL 7 - 20 mg/dL [place] Calcium [Mass/Vol] 7.7 mg/dL Low 8.4-10.4 [facility] Comment on above: Performed By: #### H NGUYEN MG3, BMP3 #### [facility] [address] [place] [address] Glucose [Mass/Vol] 212 mg/dL High 70-100 [facility] Comment on above: Performed By: #### H NGUYEN MG3, BMP3 #### [facility] [address] [place] [address] Urea nitrogen [Mass/Vol] 8 mg/dL Normal 7-20 [facility] Comment on above: Performed By: #### H NGUYEN MG3, BMP3 #### [facility] [address] [place] [address] Anion gap [Moles/Vol] 4 Normal [facility] Comment on above: Performed By: #### H NGUYEN MG3, BMP3 #### [facility] [address] [place] [address] CO2 [Moles/Vol] 36 mmol/L High 22-30 [facility] Comment on above: Performed By: #### H NGUYEN MG3, BMP3 #### [facility] [address] [place] [address] Creatinine [Mass/Vol] 0.29 mg/dL Low 0.52-1.25 [facility] Comment on above: Performed By: #### H NGUYEN MG3, BMP3 #### [facility] [address] [place] [address] GFR/1.73 sq M predicted among blacks MDRD (S/P/Bld) [Vol rate/Area] mL/min/{1.73_m2} Normal >60 [facility] Comment on above: Performed By: #### H EMOG, MG3, BMP3 #### [facility] [address] [place] [address] GFR/1.73 sq M predicted among non-blacks MDRD (S/P/Bld) [Vol rate/Area] mL/min/{1.73_m2} Normal >60 [facility] Comment on above: Result Comment: KDIG O guidelines provide the following GFR categories: Stage GFR(ml/min/1.73 m2) Terms G1 >=90 Normal or high G2 60-89 Mildly decreased* G3a 45-59 Mildly to moderately decreased G3b 30-44 Moderately to severely decreased G4 15-29 Severely decreased G5 <15 Kidney failure *Relative to young adult level. In the absence of evidence of kidney damage, neither GFR category G1 nor G2 fulfill the criteria for CKD. The CKD-EPI equation is validated in individuals 18 years of age and older. Currently the best equation for estimating glomerular filtration rate (GFR) from serum creatinine in children is the Bedside Oshea equation. It is less accurate in patients with extremes of muscle mass, restriction of dietary protein, ingestion of creatine, extra-renal metabolism of creatinine, or treatment with medications that affect renal tubular creatinine secretion. Performed By: #### H NGUYEN MG3, BMP3 #### [address] Potassium [Moles/Vol] 3.1 mmol/L Low 3.5-5.1 [facility] Comment on above: Performed By: #### H NGUYEN MG3, BMP3 #### [address] Sodium [Moles/Vol] 135 mmol/L Normal 135-145 [facility] Comment on above: Performed By: #### H NGUYEN MG3, BMP3 #### [address] Chloride [Moles/Vol] 95 mmol/L Low 98-107 [facility] Comment on above: Performed By: #### H NGUYEN MG3, BMP3 #### [address] Anion gap [Moles/Vol] 4 mmol/L [facility], [place] Calcium [Mass/Vol] 7.7 mg/dL Low 8.4 - 10. 4 mg/dL [facility], [place] Chloride [Moles/Vol] 95 mmol/L Low 98 - 10 7 mmol/L [place] CO2 [Moles/Vol] 36 mmol/L High 22 - 30 mmol/L [place] Creatinine [Mass/Vol] 0.29 mg/dL Low 0.52 - 1.25 mg/dL [place] EGFR IF NonAfrican [place]an >90.0 >60 mL/min [place] Comment on above: KDIGO guidelines pro vide the following GFR categories: Stage GFR(ml/min/1.73 m2) Terms G1 >=90 Normal or high G2 60-89 Mildly decreased* G3a 45-59 Mildly to moderately decreased G3b 30-44 Moderately to severely decreased G4 15-29 Severely decreased G5 <15 Kidney failure *Relative to young adult level. In the absence of evidence of kidney damage, neither GFR category G1 nor G2 fulfill the criteria for CKD. The CKD-EPI equation is validated in individuals 18 years of age and older. Currently the best equation for estimating glomerular filtration rate (GFR) from serum creatinine in children is the Bedside Oshea equation. It is less accurate in patients with extremes of muscle mass, restriction of dietary protein, ingestion of creatine, extra-renal metabolism of creatinine, or treatment with medications that affect renal tubular creatinine secretion. GFR/1.73 sq M predicted among blacks MDRD (S/P/Bld) [Vol rate/Area] mL/min/{1.73_m2} >60 mL/min [place] Glucose [Mass/Vol] 212 mg/dL High 70 - 100 mg/dL [place] Potassium [Moles/Vol] 3.1 mmol/L Low 3.5 - 5.1 mmol/L [place] Sodium [Moles/Vol] 135 mmol/L 135 - 145 mmol/L [place], [place] Urea nitrogen [Mass/Vol] 8 mg/dL 7 - 20 mg/dL [place], [place] Body Fluid Cultureon 10-15- 020 Body Fluid Cult/Smear, Aerobic No growth at 5 days. [place], [place] INR Coag (Bld) [Relative time] Many polymorphonuclear cells/lpf. No organisms seen. [place], [place] Test Performed by [employer], [address] [place] [id number] Specimen Source Comment:Thoracentesis [place], [place] CBCon 10-16-2019 Erythrocyte distribution width (RBC) [Ratio] 21.3 % High 11.5 - 14.5 % [place] Hematocrit (Bld) [Volume fraction] 37.1 % 35 - 47 % [place] Hemoglobin (Bld) [Mass/Vol] 11.9 g/dL 11.7 - 16 g/dL [place], [place] Interpretation and review of laboratory results Abnormal [place], [place] MCH (RBC) [Entitic mass] 27.1 pg 26 - 34 pg [place] MCHC (RBC) [Mass/Vol] 32.1 % 32 - 36 % [place], [place] MCV (RBC) [Entitic vol] 84.3 fL 79 - 98 fL [place], [place] Platelet mean volume (Bld) [Entitic vol] 9.6 fL 7.4 - 10.4 fL [place], [place] Platelets (Bld) [#/Vol] 645 10*3/uL High 140 - 440 10*3/uL [place] RBC (Bld) [#/Vol] 4.40 10*6/uL 3.8 - 5.2 10*6/uL [place] WBC (Bld) [#/Vol] 19.4 10*3/uL High 3.6 - 10.7 10*3/uL [place] Test Performed by [facility], [address] [place] [id number] [place] [address] CR Chest Portableon 10-16-19 20 CR Chest Portable Patient Name: DORY BASURTO Diagnostic Radiology Exam Date/Time 10/16/2019 13:49:29 EDT Exam CR Chest Portable Ordering Physician CORY MEI Accession Number [id number] CPT4 Codes 89857 () Reason For Exam SOB Report Examination: AP portable chest Clinical Indication: SOB Comparison: 10/14/2019 Findings: Lungs appear normally inflated. Diffuse interstitial thickening likely some component of chronic change. There is improving interstitial disease diffusely. Persistent focal consolidation within the lower lungs right greater than left significantly improved on the left. No sizable pleural effusion. Heart size is normal. Enteric tube extends to the region of the stomach. Impression: Slightly improving acute on chronic interstitial disease. Persistent focal bilateral basilar airspace infiltrate right greater than left slightly improved on the left. Report Dictated on Final Dictated: 10/16/2019 1:30 pm Dictating Physician: MD MCQUEEN ANTHONY J Signed Date and Time: 10/16/2019 1:31 pm Signed by: MD MCQUEEN ANTHONY J Transcribed Date and Time: 10/16/2019 1:30 Normal [facility] Calcium, Ionizedon 0 Interpretation and review of laboratory results Abnormal [place], [place] Ionized Ca 3.50 mg/dL Low 4.3 - 5.2 mg/dL [place], [place] pH (Bld) 7.59 [pH] High [place] Test Performed by [facility], [address] [place] [address] [place] Calcium,Ionizedon 10-16-2019 Ionized Ca,Measured 3.50 mg/dL Low 4.30-5.20 [facility] Comment on above: Performed By: #### H NGUYEN MG3, BMP3 #### [address] [address] pH, Ionized Calcium 7.59 High 7.31-7.46 [facility] Comment on above: Performed By: #### H NGUYEN MG3, BMP3 #### [address] [address] Glucose,Bedsideon 10-16-2019 Glucose [Mass/Vol] 195 mg/dL High 70-100 [facility] Comment on above: Result Comment: Test performed by glucose meter. Results may be 10%-15% lower than serum/plasma values. (CLIA ID [id number]) Performed By: #### H NGUYEN, MG3, BMP3 #### [address] [address] Glucose [Mass/Vol] 296 mg/dL High 70-100 [facility] Comment on above: Result Comment: Test performed by glucose meter. Results may be 10%-15% lower than serum/plasma values. (CLIA ID [id number]) Performed By: #### H NGUYEN MG3, BMP3 #### [facility] [address] [place] [address] Glucose [Mass/Vol] 110 mg/dL High 70-100 [facility] Comment on above: Result Comment: Test performed by glucose meter. Results may be 10%-15% lower than serum/plasma values. (CLIA ID [id number]) Performed By: #### H NGUYEN MG3, BMP3 #### [facility] [address] [place] [address] Glucose [Mass/Vol] 218 mg/dL High 70-100 [facility] Comment on above: Result Comment: Test performed by glucose meter. Results may be 10%-15% lower than serum/plasma values. (CLIA ID [id number]) Performed By: #### H NGUYEN MG3, BMP3 #### [employer] [facility] [address] [place] [address] Hemoglobin A1Con 10-16-2019 HbA1c (Bld) [Mass fraction] 123 mg/dL Normal [facility] Comment on above: Performed By: #### H NGUYEN MG3, BMP3 #### [facility] [address] [place] [address] HbA1c (Bld) [Mass fraction] 5.9 % Normal 4.0-6.0 [facility] Comment on above: Result Comment: --Hg bA1C levels may not be accurate in patients who have renal disease, received recent blood transfusions, are anemic, or who have dyshemoglobinemia. Performed By: #### H NGUYEN MG3, BMP3 #### [facility] [address] [place] [address] eAG 123 mg/dL [place], [place] HbA1c (Bld) [Mass fraction] 5.9 % 4 - 6 % [place] Comment on above: --HgbA1C levels may not be accurate in patients who have renal disease, received recent blood transfusions, are anemic, or who have dyshemoglobinemia. Test Performed by [facility], [address] [place] [id number] [place] [address], [place] Hemogramon 10-16-2019 Erythrocyte distribution width (RBC) [Ratio] 21.3 % High 11.5-14.5 [facility] Comment on above: Performed By: #### H NGUYEN MG3, BMP3 #### [address] Hematocrit (Bld) [Volume fraction] 37.1 % Normal 35.0-47.0 [facility] Comment on above: Performed By: #### Herman CEDILLO MG3, BMP3 #### [address] Hemoglobin (Bld) [Mass/Vol] 11.9 g/dL Normal 11.7-16.0 [facility] Comment on above: Performed By: #### Herman CEDILLO MG3, BMP3 #### [address] MCH (RBC) [Entitic mass] 27.1 pg Normal 26.0-34.0 [facility] Comment on above: Performed By: #### Herman CEDILLO MG3, BMP3 #### [address] MCHC (RBC) [Mass/Vol] 32.1 % Normal 32.0-36.0 [facility] Comment on above: Performed By: #### Herman CEDILLO MG3, BMP3 #### [address] MCV (RBC) [Entitic vol] 84.3 fL Normal 79.0-98.0 [facility] Comment on above: Performed By: #### Herman CEDILLO MG3, BMP3 #### [address] Platelet mean volume (Bld) [Entitic vol] 9.6 fL Normal 7.4-10.4 [facility] Comment on above: Performed By: #### Herman CEDILLO MG3, BMP3 #### [facility] [address] [place], [place] Platelets (Bld) [#/Vol] 645 10*3/uL High 140-440 [facility] Comment on above: Performed By: #### H EMOPerla, MG3, BMP3 #### [facility] [address] [place], [place] RBC (Bld) [#/Vol] 4.40 10*6/uL Normal 3.80-5.20 [facility] Comment on above: Performed By: #### H EMOG, MG3, BMP3 #### [place] [address] [address], [place] WBC (Bld) [#/Vol] 19.4 10*3/uL High 3.6-10.7 [facility] Comment on above: Performed By: #### H EMOPerla, MG3, BMP3 #### [place] [address] [address] [place], [place] Hepatic Functionon 0 ALP [Catalytic activity/Vol] 166 U/L High 38-126 [facility] Comment on above: Performed By: #### H EMOPerla, MG3, BMP3 #### [place] [address] [place], [place] ALT [Catalytic activity/Vol] 22 U/L Normal 0-34 [facility] Comment on above: Result Comment: The ALT test is performed by an updated assay method. Please note that the reference intervals have been changed and are now sex specific. Performed By: #### H EMOG, MG3, BMP3 #### [facility] [address] [place], [place] AST [Catalytic activity/Vol] 40 U/L Normal 15-46 [facility] Comment on above: Performed By: #### H EMOG, MG3, BMP3 #### [place] [address] [address] [place], [place] Bilirubin [Mass/Vol] 0.5 mg/dL Normal 0.2-1.3 [facility] Comment on above: Performed By: #### H EMOG, MG3, BMP3 #### [facility] [address] [place] [address] Protein [Mass/Vol] 5.5 g/dL Low 6.3-8.2 [facility] Comment on above: Performed By: #### H EMOG, MG3, BMP3 #### [facility] [address] [place] [address] Bilirubin.direct [Mass/Vol] 0.0 mg/dL Normal 0.0-0.3 [facility] Comment on above: Performed By: #### H EMOG, MG3, BMP3 #### [facility] [address] [place] [address] Albumin [Mass/Vol] 2.6 g/dL Low 3.5-5.0 [facility] Comment on above: Performed By: #### H EMOG, MG3, BMP3 #### [facility] [address] [place] [address] Hepatic Function Panelon Albumin [Mass/Vol] 2.6 g/dL Low 3.5 - 5 g/dL [place] ALP [Catalytic activity/Vol] 166 U/L High 38 - 126 U/L [place] ALT [Catalytic activity/Vol] 22 U/L 0 - 34 U/L [place] Comment on above: The ALT test is perf ormed by an updated assay method. Please note that the reference intervals have been changed and are now sex specific. AST [Catalytic activity/Vol] 40 U/L 15 - 46 U/L [place], [place] Bilirubin Ql (U) 0.5 mg/dL 0.2 - 1.3 mg/dL [place] Bilirubin.direct [Mass/Vol] 0.0 mg/dL 0 - 0.3 mg/dL [place] Protein [Mass/Vol] 5.5 g/dL Low 6.3 - 8.2 g/dL [place] Magnesiumon 10-16-2019 Magnesium [Mass/Vol] 2.2 mg/dL Normal 1.6-2.3 [facility] Comment on above: Performed By: #### H EMOG, MG3, BMP3 #### [place] [address] [place] [address] Magnesium [Mass/Vol] 2.2 mg/dL 1.6 - 2 .3 mg/dL [facility], [place] Magnesium [Mass/Vol] 1.4 mg/dL Low 1.6-2.3 [facility] Comment on above: Performed By: #### H EMOG, MG3, BMP3 #### [facility] [address] [place] [address] Magnesium [Mass/Vol] 1.4 mg/dL Low 1.6 - 2 .3 mg/dL [facility], [place] Otheron 10-16-2019 Interpretation and review of laboratory results Abnormal [facility] [place], [place] Test Performed by [facility], [facility] [place] [address] [facility] Interpretation and review of laboratory results Abnormal [facility], [place] Test Performed by [facility], [facility] [place] [address] [facility] POCT Glucoseon 10-16-2019 Glucose [Mass/Vol] 195 mg/dL High 70 - 100 mg/dL [place], [place] Comment on above: Test performed by gl ucose meter. Results may be 10%-15% lower than serum/plasma values. (CLIA ID [id number]) Interpretation and review of laboratory results Abnormal [facility] [employer] [place], [place] Test Performed by [facility], [facility] [place] [address] [facility], [place] Glucose [Mass/Vol] 296 mg/dL High 70 - 100 mg/dL [place], [place] Comment on above: Test performed by gl ucose meter. Results may be 10%-15% lower than serum/plasma values. (CLIA ID [id number]) Interpretation and review of laboratory results Abnormal [facility] [employer] [place], [place] Test Performed by [facility], [facility] [place] [address] [facility], [place] Glucose [Mass/Vol] 110 mg/dL High 70 - 100 mg/dL [facility], [place] Comment on above: Test performed by gl ucose meter. Results may be 10%-15% lower than serum/plasma values. (CLIA ID [id number]) Interpretation and review of laboratory results Abnormal [facility] [employer] [place], [place] Test Performed by [employer], [address] [place] [address] [place], [place] Glucose [Mass/Vol] 218 mg/dL High 70 - 100 mg/dL [place] Comment on above: Test performed by gl ucose meter. Results may be 10%-15% lower than serum/plasma values. (CLIA ID [id number]) Interpretation and review of laboratory results Abnormal [facility] [employer] [place] Test Performed by [employer], [facility] [place] [address] [place], [place] Phosphoruson 10-16-2019 Phosphate [Mass/Vol] 5.1 mg/dL High 2.5-4.5 [facility] Comment on above: Performed By: #### H EMOG, MG3, BMP3 #### [facility] [address] [place] [address] Phosphate [Mass/Vol] 5.1 mg/dL High 2.5 - 4 .5 mg/dL [place], [place] Phosphate [Mass/Vol] 2.2 mg/dL Low 2.5-4.5 [facility] Comment on above: Performed By: #### H EMOG, MG3, BMP3 #### [facility] [address] [address] [place] [address] Phosphate [Mass/Vol] 2.2 mg/dL Low 2.5 - 4 .5 mg/dL [place] Prothrombin Timeon 0 INR Coag (PPP) [Relative time] 1.0 Normal 0.9-1.1 [facility] Comment on above: Result Comment: Mark mmended Anticoagulant Therapy: SEE BELOW ----- INR of 2.0 - 3.0 : - Prophylaxis of Venous Thrombosis (high-risk surgery) - Treatment of Venous Thrombosis - Treatment of Pulmonary Embolism (Includes tissue heart valves, Acute Myocardial Infarction to prevent systemic embolism, Valvular Heart Disease, and Atrial Fibrillation) ----- INR of 2.5 - 3.5 : - Mechanical Prosthetic Valves (high risk) - If oral anticoagulant therapy is used to prevent Myocardial Infarction Performed By: #### H NGUYEN, MG3, BMP3 #### [address] [address] [place] [address] PT Coag (PPP) [Time] 10.9 s Normal 9.0-12.0 [facility] Comment on above: Result Comment: . Performed By: #### H EMOG, MG3, BMP3 #### [facility] [employer] [address] [address] [place] [address] Pro[employer]-INRon 10-16-2019 INR Coag (PPP) [Relative time] 1.0 {INR} [place], [place] Comment on above: Recommended Anticoag ulant Therapy: SEE BELOW ----- INR of 2.0 - 3.0 : - Prophylaxis of Venous Thrombosis (high-risk surgery) - Treatment of Venous Thrombosis - Treatment of Pulmonary Embolism (Includes tissue heart valves, Acute Myocardial Infarction to prevent systemic embolism, Valvular Heart Disease, and Atrial Fibrillation) ----- INR of 2.5 - 3.5 : - Mechanical Prosthetic Valves (high risk) - If oral anticoagulant therapy is used to prevent Myocardial Infarction PT Coag (PPP) [Time] 10.9 s 9 - 12 s [place], [place] Comment on above: . Test Performed by [employer] [facility], [address] [place] [address] [place], [place] XR CHEST PORTABLEon 10-16-19 20 Ezio, [facility] Incoming Radiology Results From [facility] - 10/16/2019 1:49 PM EDT Patient Name: DORY BASURTO ---Diagnostic Radiology--- Exam Date/Time 10/16/2019 13:49:29 EDT Exam CR Chest Portable Ordering Physician CORY MEI Accession Number [id number] CPT4 Codes 59921 () Reason For Exam SOB Report Examination: AP portable chest Clinical Indication: SOB Comparison: 10/14/2019 Findings: Lungs appear normally inflated. Diffuse interstitial thickening likely some component of chronic change. There is improving interstitial disease diffusely. Persistent focal consolidation within the lower lungs right greater than left significantly improved on the left. No sizable pleural effusion. Heart size is normal. Enteric tube extends to the region of the stomach. Impression: Slightly improving acute on chronic interstitial disease. Persistent focal bilateral basilar airspace infiltrate right greater than left slightly improved on the left. Report Dictated on --- Final --- Dictated: 10/16/2019 1:30 pm Dictating Physician: MD MCQUEEN ANTHONY J Signed Date and Time: 10/16/2019 1:31 pm Signed by: MD MCQUEEN ANTHONY J Transcribed Date and Time: 10/16/2019 1:30 [place], [place] Patient Name: DORY BASURTO ---Diagnostic Radiology--- Exam Date/Time 10/16/2019 13:49:29 EDT Exam CR Chest Portable Ordering Physician CORY MEI Accession Number [id number] CPT4 Codes 71430 () Reason For Exam SOB Report Examination: AP portable chest Clinical Indication: SOB Comparison: 10/14/2019 Findings: Lungs appear normally inflated. Diffuse interstitial thickening likely some component of chronic change. There is improving interstitial disease diffusely. Persistent focal consolidation within the lower lungs right greater than left significantly improved on the left. No sizable pleural effusion. Heart size is normal. Enteric tube extends to the region of the stomach. Impression: Slightly improving acute on chronic interstitial disease. Persistent focal bilateral basilar airspace infiltrate right greater than left slightly improved on the left. Report Dictated on --- Final --- Dictated: 10/16/2019 1:30 pm Dictating Physician: MD MCQUEEN ANTHONY J Signed Date and Time: 10/16/2019 1:31 pm Signed by: MD MCQUEEN ANTHONY J Transcribed Date and Time: 10/16/2019 1:30 [place], [place] Basic Metabolic Panelon 09-22 Anion gap [Moles/Vol] 7 Normal [facility] Comment on above: Performed By: #### H EMOG, MG3, BMP3 #### [address] [address] Calcium [Mass/Vol] 7.8 mg/dL Low 8.4-10.4 [facility] Comment on above: Performed By: #### H EMOG, MG3, BMP3 #### [facility] [address] [place], [place] Chloride [Moles/Vol] 102 mmol/L Normal 98-107 [facility] Comment on above: Performed By: #### H EMOG, MG3, BMP3 #### [facility] [address] [place], [place] CO2 [Moles/Vol] 28 mmol/L Normal 22-30 [facility] Comment on above: Performed By: #### H EMOG, MG3, BMP3 #### [place] [address] [place], [place] Creatinine [Mass/Vol] 0.21 mg/dL Low 0.52-1.25 [facility] Comment on above: Performed By: #### H EMOG, MG3, BMP3 #### [place] [address] [place], [place] GFR/1.73 sq M predicted among blacks MDRD (S/P/Bld) [Vol rate/Area] mL/min/{1.73_m2} Normal >60 [facility] Comment on above: Performed By: #### H EMOG, MG3, BMP3 #### [place] [address] [place], [place] GFR/1.73 sq M predicted among non-blacks MDRD (S/P/Bld) [Vol rate/Area] mL/min/{1.73_m2} Normal >60 [facility] Comment on above: Result Comment: KDIG O guidelines provide the following GFR categories: Stage GFR(ml/min/1.73 m2) Terms G1 >=90 Normal or high G2 60-89 Mildly decreased* G3a 45-59 Mildly to moderately decreased G3b 30-44 Moderately to severely decreased G4 15-29 Severely decreased G5 <15 Kidney failure *Relative to young adult level. In the absence of evidence of kidney damage, neither GFR category G1 nor G2 fulfill the criteria for CKD. The CKD-EPI equation is validated in individuals 18 years of age and older. Currently the best equation for estimating glomerular filtration rate (GFR) from serum creatinine in children is the Bedside Oshea equation. It is less accurate in patients with extremes of muscle mass, restriction of dietary protein, ingestion of creatine, extra-renal metabolism of creatinine, or treatment with medications that affect renal tubular creatinine secretion. Performed By: #### H CANDELARIA CEDILLO, BMP3 #### [facility] [address] [place] [address] Glucose [Mass/Vol] 272 mg/dL High 70-100 [facility] Comment on above: Performed By: #### H MG NGUYEN3, BMP3 #### [facility] [address] [place] [address] Potassium [Moles/Vol] 4.1 mmol/L Normal 3.5-5.1 [facility] Comment on above: Performed By: #### H MG NGUYEN3, BMP3 #### [facility] [address] [place] [address] Sodium [Moles/Vol] 137 mmol/L Normal 135-145 [facility] Comment on above: Performed By: #### H MG NGUYEN3, BMP3 #### [facility] [address] [place] [address] Urea nitrogen [Mass/Vol] 7 mg/dL Normal 7-20 [facility] Comment on above: Performed By: #### H NGUYEN MG3, BMP3 #### [facility] [address] [place] [address] Anion gap [Moles/Vol] 7 mmol/L [place], [place] Calcium [Mass/Vol] 7.8 mg/dL Low 8.4 - 10. 4 mg/dL [place] Chloride [Moles/Vol] 102 mmol/L 98 - 10 7 mmol/L [place] CO2 [Moles/Vol] 28 mmol/L 22 - 30 mmol/L [place] Creatinine [Mass/Vol] 0.21 mg/dL Low 0.52 - 1.25 mg/dL [place] EGFR IF NonAfrican [place]an >90.0 >60 mL/min [place] Comment on above: KDIGO guidelines pro vide the following GFR categories: Stage GFR(ml/min/1.73 m2) Terms G1 >=90 Normal or high G2 60-89 Mildly decreased* G3a 45-59 Mildly to moderately decreased G3b 30-44 Moderately to severely decreased G4 15-29 Severely decreased G5 <15 Kidney failure *Relative to young adult level. In the absence of evidence of kidney damage, neither GFR category G1 nor G2 fulfill the criteria for CKD. The CKD-EPI equation is validated in individuals 18 years of age and older. Currently the best equation for estimating glomerular filtration rate (GFR) from serum creatinine in children is the Bedside Oshea equation. It is less accurate in patients with extremes of muscle mass, restriction of dietary protein, ingestion of creatine, extra-renal metabolism of creatinine, or treatment with medications that affect renal tubular creatinine secretion. GFR/1.73 sq M predicted among blacks MDRD (S/P/Bld) [Vol rate/Area] mL/min/{1.73_m2} >60 mL/min [place], [place] Glucose [Mass/Vol] 272 mg/dL High 70 - 100 mg/dL [place] Potassium [Moles/Vol] 4.1 mmol/L 3.5 - 5.1 mmol/L [place] Sodium [Moles/Vol] 137 mmol/L 135 - 145 mmol/L [place] Urea nitrogen [Mass/Vol] 7 mg/dL 7 - 20 mg/dL [place] Calcium [Mass/Vol] 7.5 mg/dL Low 8.4-10.4 [facility] Comment on above: Performed By: #### H NGUYEN MG3, BMP3 #### [place] [address] [place], [place] Anion gap [Moles/Vol] 4 Normal [facility] Comment on above: Performed By: #### H NGUYEN MG3, BMP3 #### [address] CO2 [Moles/Vol] 30 mmol/L Normal 22-30 [facility] Comment on above: Performed By: #### H NGUYEN MG3, BMP3 #### [address] Creatinine [Mass/Vol] 0.21 mg/dL Low 0.52-1.25 [facility] Comment on above: Performed By: #### H CANDELARIA CEDILLO BMP3 #### [facility] [address] [place] [address] GFR/1.73 sq M predicted among blacks MDRD (S/P/Bld) [Vol rate/Area] mL/min/{1.73_m2} Normal >60 [facility] Comment on above: Performed By: #### H MG NGUYEN3, BMP3 #### [facility] [address] [place], [place] GFR/1.73 sq M predicted among non-blacks MDRD (S/P/Bld) [Vol rate/Area] mL/min/{1.73_m2} Normal >60 [facility] Comment on above: Result Comment: KDIG O guidelines provide the following GFR categories: Stage GFR(ml/min/1.73 m2) Terms G1 >=90 Normal or high G2 60-89 Mildly decreased* G3a 45-59 Mildly to moderately decreased G3b 30-44 Moderately to severely decreased G4 15-29 Severely decreased G5 <15 Kidney failure *Relative to young adult level. In the absence of evidence of kidney damage, neither GFR category G1 nor G2 fulfill the criteria for CKD. The CKD-EPI equation is validated in individuals 18 years of age and older. Currently the best equation for estimating glomerular filtration rate (GFR) from serum creatinine in children is the Bedside Oshea equation. It is less accurate in patients with extremes of muscle mass, restriction of dietary protein, ingestion of creatine, extra-renal metabolism of creatinine, or treatment with medications that affect renal tubular creatinine secretion. Performed By: #### H MG NGUYEN3, BMP3 #### [facility] [address] [place], [place] Glucose [Mass/Vol] 174 mg/dL High 70-100 [facility] Comment on above: Performed By: #### H MG NGUYEN3, BMP3 #### [facility] [address] [place], [place] Urea nitrogen [Mass/Vol] 6 mg/dL Low 7-20 [facility] Comment on above: Performed By: #### H EMOG, MG3, BMP3 #### [facility] [address] [place] [address] Chloride [Moles/Vol] 104 mmol/L Normal 98-107 [facility] Comment on above: Performed By: #### H EMOG, MG3, BMP3 #### [facility] [address] [place] [address] Potassium [Moles/Vol] 3.5 mmol/L Normal 3.5-5.1 [facility] Comment on above: Performed By: #### H EMOG, MG3, BMP3 #### [facility] [address] [place] [address] Sodium [Moles/Vol] 138 mmol/L Normal 135-145 [facility] Comment on above: Performed By: #### H EMOG, MG3, BMP3 #### [facility] [address] [place] [address] Anion gap [Moles/Vol] 4 mmol/L [place], [place] Calcium [Mass/Vol] 7.5 mg/dL Low 8.4 - 10. 4 mg/dL [place] Chloride [Moles/Vol] 104 mmol/L 98 - 10 7 mmol/L [place] CO2 [Moles/Vol] 30 mmol/L 22 - 30 mmol/L [place] Creatinine [Mass/Vol] 0.21 mg/dL Low 0.52 - 1.25 mg/dL [place] EGFR IF NonAfrican [place]an >90.0 >60 mL/min [place] Comment on above: KDIGO guidelines pro vide the following GFR categories: Stage GFR(ml/min/1.73 m2) Terms G1 >=90 Normal or high G2 60-89 Mildly decreased* G3a 45-59 Mildly to moderately decreased G3b 30-44 Moderately to severely decreased G4 15-29 Severely decreased G5 <15 Kidney failure *Relative to young adult level. In the absence of evidence of kidney damage, neither GFR category G1 nor G2 fulfill the criteria for CKD. The CKD-EPI equation is validated in individuals 18 years of age and older. Currently the best equation for estimating glomerular filtration rate (GFR) from serum creatinine in children is the Bedside Oshea equation. It is less accurate in patients with extremes of muscle mass, restriction of dietary protein, ingestion of creatine, extra-renal metabolism of creatinine, or treatment with medications that affect renal tubular creatinine secretion. GFR/1.73 sq M predicted among blacks MDRD (S/P/Bld) [Vol rate/Area] mL/min/{1.73_m2} >60 mL/min [place] Glucose [Mass/Vol] 174 mg/dL High 70 - 100 mg/dL [place] Potassium [Moles/Vol] 3.5 mmol/L 3.5 - 5.1 mmol/L [place] Sodium [Moles/Vol] 138 mmol/L 135 - 145 mmol/L [place] Urea nitrogen [Mass/Vol] 6 mg/dL Low 7 - 20 mg/dL [place] CBCon 10-15-2019 Erythrocyte distribution width (RBC) [Ratio] 20.7 % High 11.5 - 14.5 % [place] Hematocrit (Bld) [Volume fraction] 30.8 % Low 35 - 47 % [place] Hemoglobin (Bld) [Mass/Vol] 10.1 g/dL Low 11.7 - 16 g/dL [place] MCH (RBC) [Entitic mass] 27.2 pg 26 - 34 pg [place] MCHC (RBC) [Mass/Vol] 32.7 % 32 - 36 % [place], [place] MCV (RBC) [Entitic vol] 83.1 fL 79 - 98 fL [place], [place] Platelet mean volume (Bld) [Entitic vol] 9.0 fL 7.4 - 10.4 fL [place], [place] Platelets (Bld) [#/Vol] 495 10*3/uL High 140 - 440 10*3/uL [place] RBC (Bld) [#/Vol] 3.71 10*6/uL Low 3.8 - 5.2 10*6/uL [place] WBC (Bld) [#/Vol] 13.6 10*3/uL High 3.6 - 10.7 10*3/uL [place] CULTURE AND STAIN - FLUIDon 10-15-2019 CULTURE AND STAIN - FLUID CULTURE & STAIN - FLUID --> Status: F No growth at 5 days. Normal [facility] Comment on above: Order Comment: Speci men Source Comment:Body Fluid Performed By: #### H CANDELARIA CEDILLO BMP3 #### [facility] [address] [place], [place] Calcium, Ionizedon 0 Ionized Ca 4.20 mg/dL Low 4.3 - 5.2 mg/dL [place], [place] Comment on above: This sample was rece ived in the lab on ice and/or analysis was delayed beyond the recommended 30 minutes. Low temperatures cause artefactual increases in pO2. Delay in analysis at room temperature can cause artefactual decreases in pO2, and sO2, and pH with increase in pCO2. It is recommended that results be correlated clinically and the sample be recollected and analyzed promptly if clinically indicated. pH (Bld) 7.43 [pH] [place], [place] Calcium,Ionizedon 10-15-2019 Ionized Ca,Measured 4.20 mg/dL Low 4.30-5.20 [facility] Comment on above: Result Comment: This sample was received in the lab on ice and/or analysis was delayed beyond the recommended 30 minutes. Low temperatures cause artefactual increases in pO2. Delay in analysis at room temperature can cause artefactual decreases in pO2, and sO2, and pH with increase in pCO2. It is recommended that results be correlated clinically and the sample be recollected and analyzed promptly if clinically indicated. Performed By: #### H MG NGUYEN3, BMP3 #### [employer] [address] [place], [place] pH, Ionized Calcium 7.43 Normal 7.31-7.46 [facility] [employer] Comment on above: Performed By: #### H MG NGUYEN3, BMP3 #### [facility] [address] [place], [place] Culture, Body Fluidon 2019 Body Fluid Cult/Smear, Aerobic No growth at 5 days. [place], [place] Test Performed by [facility], [address] [place] [address] Specimen Source Comment:Body Fluid [place], [place] Glucose,Bedsideon 10-15-2019 Glucose [Mass/Vol] 194 mg/dL High 70-100 [place] Comment on above: Test performed by gl ucose meter. Results may be 10%-15% lower than serum/plasma values. (CLIA ID [id number]) Result Comment: Test performed by glucose meter. Results may be 10%-15% lower than serum/plasma values. (CLIA ID [id number]) Performed By: #### H EMOG, MG3, BMP3 #### [facility] [address] [place] [address] Glucose [Mass/Vol] 263 mg/dL High 70-100 [facility] Comment on above: Result Comment: Test performed by glucose meter. Results may be 10%-15% lower than serum/plasma values. (CLIA ID [id number]) Performed By: #### Herman EMOG, MG3, BMP3 #### [employer] [address] [place], [place] Glucose [Mass/Vol] 106 mg/dL High 70-100 [facility] Comment on above: Result Comment: Test performed by glucose meter. Results may be 10%-15% lower than serum/plasma values. (CLIA ID [id number]) Performed By: #### H EMOG, MG3, BMP3 #### [employer] [address] [place], [place] Hemogramon 10-15-2019 Erythrocyte distribution width (RBC) [Ratio] 20.7 % High 11.5-14.5 [facility] Comment on above: Performed By: #### H EMOG, MG3, BMP3 #### [employer] [address] [place], [place] Hematocrit (Bld) [Volume fraction] 30.8 % Low 35.0-47.0 [facility] Comment on above: Performed By: #### H EMOG, MG3, BMP3 #### [employer] [address] [place], [place] Hemoglobin (Bld) [Mass/Vol] 10.1 g/dL Low 11.7-16.0 [facility] Comment on above: Performed By: #### H NGUYEN MG3, BMP3 #### [place] [address] [address] [place], [place] MCH (RBC) [Entitic mass] 27.2 pg Normal 26.0-34.0 [facility] Comment on above: Performed By: #### H NGUYEN MG3, BMP3 #### [place] [address] [address] [place], [place] MCHC (RBC) [Mass/Vol] 32.7 % Normal 32.0-36.0 [facility] Comment on above: Performed By: #### H NGUYEN MG3, BMP3 #### [place] [address] [address] [place], [place] MCV (RBC) [Entitic vol] 83.1 fL Normal 79.0-98.0 [facility] Comment on above: Performed By: #### H NGUYEN MG3, BMP3 #### [place] [address] [address] [place], [place] Platelet mean volume (Bld) [Entitic vol] 9.0 fL Normal 7.4-10.4 [facility] Comment on above: Performed By: #### H NGUYEN, MG3, BMP3 #### [place] [address] [place], [place] Platelets (Bld) [#/Vol] 495 10*3/uL High 140-440 [facility] Comment on above: Performed By: #### H NGUYEN, MG3, BMP3 #### [place] [address] [address] [place], [place] RBC (Bld) [#/Vol] 3.71 10*6/uL Low 3.80-5.20 [facility] Comment on above: Performed By: #### H EMOPerla, MG3, BMP3 #### [place] [address] [place], [place] WBC (Bld) [#/Vol] 13.6 10*3/uL High 3.6-10.7 [facility] Comment on above: Performed By: #### H NGUYEN MG3, BMP3 #### [facility] [address] [place], [place] Hepatic Functionon 0 ALP [Catalytic activity/Vol] 147 U/L High 38-126 [facility] Comment on above: Performed By: #### H EMOPerla MG3, BMP3 #### [facility] [address] [place], [place] ALT [Catalytic activity/Vol] 19 U/L Normal 0-34 [facility] Comment on above: Result Comment: The ALT test is performed by an updated assay method. Please note that the reference intervals have been changed and are now sex specific. Performed By: #### H NGUYEN MG3, BMP3 #### [place] [address] [address] [place], [place] AST [Catalytic activity/Vol] 48 U/L High 15-46 [facility] Comment on above: Performed By: #### H NGUYEN MG3, BMP3 #### [place] [address] [address] [place], [place] Bilirubin [Mass/Vol] 0.5 mg/dL Normal 0.2-1.3 [facility] Comment on above: Performed By: #### H NGUYEN MG3, BMP3 #### [place] [address] [address] [place], [place] Bilirubin.direct [Mass/Vol] 0.0 mg/dL Normal 0.0-0.3 [facility] Comment on above: Performed By: #### H EMOPerla MG3, BMP3 #### [place] [address] [place], [place] Protein [Mass/Vol] 4.6 g/dL Low 6.3-8.2 [facility] Comment on above: Performed By: #### H EMOPerla MG3, BMP3 #### [place] [address] [address] [place], [place] Albumin [Mass/Vol] 2.1 g/dL Low 3.5-5.0 [facility] Comment on above: Performed By: #### H EMOPerla MG3, BMP3 #### [facility] [address] [address] Hepatic Function Panelon Albumin [Mass/Vol] 2.1 g/dL Low 3.5 - 5 g/dL [place], [place] ALP [Catalytic activity/Vol] 147 U/L High 38 - 126 U/L [place] ALT [Catalytic activity/Vol] 19 U/L 0 - 34 U/L [place] Comment on above: The ALT test is perf ormed by an updated assay method. Please note that the reference intervals have been changed and are now sex specific. AST [Catalytic activity/Vol] 48 U/L High 15 - 46 U/L [place] Bilirubin Ql (U) 0.5 mg/dL 0.2 - 1.3 mg/dL [place], [place] Bilirubin.direct [Mass/Vol] 0.0 mg/dL 0 - 0.3 mg/dL [place], [place] Protein [Mass/Vol] 4.6 g/dL Low 6.3 - 8.2 g/dL [place], [place] Magnesiumon 10-15-2019 Magnesium [Mass/Vol] 1.9 mg/dL Normal 1.6-2.3 [facility] Comment on above: Performed By: #### H NGUYEN MG3, BMP3 #### [address] [address] Magnesium [Mass/Vol] 1.9 mg/dL 1.6 - 2 .3 mg/dL [place], [place] Magnesium [Mass/Vol] 2.8 mg/dL High 1.6-2.3 [facility] Comment on above: Performed By: #### H EMETERIOG MG3, BMP3 #### [facility] [address] [address] Magnesium [Mass/Vol] 2.8 mg/dL High 1.6 - 2 .3 mg/dL [place], [place] Otheron 10-15-2019 Interpretation and review of laboratory results Abnormal [place], [place] Test Performed by [facility], [address] [place] [address] [place], [place] POCT Glucoseon 10-15-2019 Glucose [Mass/Vol] 263 mg/dL High 70 - 100 mg/dL [place], [place] Comment on above: Test performed by gl ucose meter. Results may be 10%-15% lower than serum/plasma values. (CLIA ID [id number]) Glucose [Mass/Vol] 106 mg/dL High 70 - 100 mg/dL [place] Comment on above: Test performed by gl ucose meter. Results may be 10%-15% lower than serum/plasma values. (CLIA ID [id number]) Phosphoruson 10-15-2019 Phosphate [Mass/Vol] 2.9 mg/dL Normal 2.5-4.5 [facility] Comment on above: Performed By: #### H MG NGUYEN3, BMP3 #### [address] [address] Phosphate [Mass/Vol] 2.9 mg/dL 2.5 - 4 .5 mg/dL [place] Phosphate [Mass/Vol] 2.7 mg/dL Normal 2.5-4.5 [facility] Comment on above: Performed By: #### H CANDELARIA CEDILLO, BMP3 #### [address] [address] Phosphate [Mass/Vol] 2.7 mg/dL 2.5 - 4 .5 mg/dL [place] Prothrombin Timeon 0 INR Coag (PPP) [Relative time] 1.1 Normal 0.9-1.1 [facility] Comment on above: Result Comment: Mark mmended Anticoagulant Therapy: SEE BELOW ----- INR of 2.0 - 3.0 : - Prophylaxis of Venous Thrombosis (high-risk surgery) - Treatment of Venous Thrombosis - Treatment of Pulmonary Embolism (Includes tissue heart valves, Acute Myocardial Infarction to prevent systemic embolism, Valvular Heart Disease, and Atrial Fibrillation) ----- INR of 2.5 - 3.5 : - Mechanical Prosthetic Valves (high risk) - If oral anticoagulant therapy is used to prevent Myocardial Infarction Performed By: #### H NGUYEN MG3, BMP3 #### [employer] [address] [place] [address], [place] PT Coag (PPP) [Time] 11.4 s Normal 9.0-12.0 [facility] Comment on above: Result Comment: . Performed By: #### H CANDELARIA CEDILLO, BMP3 #### [place] [address] [place], [place] Protime-INRon 10-15-2019 INR Coag (PPP) [Relative time] 1.1 {INR} [place], [place] Comment on above: Recommended Anticoag ulant Therapy: SEE BELOW ----- INR of 2.0 - 3.0 : - Prophylaxis of Venous Thrombosis (high-risk surgery) - Treatment of Venous Thrombosis - Treatment of Pulmonary Embolism (Includes tissue heart valves, Acute Myocardial Infarction to prevent systemic embolism, Valvular Heart Disease, and Atrial Fibrillation) ----- INR of 2.5 - 3.5 : - Mechanical Prosthetic Valves (high risk) - If oral anticoagulant therapy is used to prevent Myocardial Infarction PT Coag (PPP) [Time] 11.4 s 9 - 12 s [place], [place] Comment on above: . Basic Metabolic Panelon 09-22 Calcium [Mass/Vol] 7.6 mg/dL Low 8.4-10.4 [facility] Comment on above: Performed By: #### H NGUYEN MG3, BMP3 #### [address] Glucose [Mass/Vol] 209 mg/dL High 70-100 [facility] Comment on above: Performed By: #### H NGUYEN MG3, BMP3 #### [place] [address] [place] [place], [place] Anion gap [Moles/Vol] 4 Normal [facility] Comment on above: Performed By: #### H NGUYEN MG3, BMP3 #### [address] CO2 [Moles/Vol] 33 mmol/L High 22-30 [facility] Comment on above: Performed By: #### H NGUYEN MG3, BMP3 #### [place] [address] [place], [place] Creatinine [Mass/Vol] 0.21 mg/dL Low 0.52-1.25 [facility] Comment on above: Performed By: #### H NGUYEN MG3, BMP3 #### [facility] [address] [place], [place] GFR/1.73 sq M predicted among blacks MDRD (S/P/Bld) [Vol rate/Area] mL/min/{1.73_m2} Normal >60 [facility] Comment on above: Performed By: #### H NGUYEN MG3, BMP3 #### [facility] [address] [place], [place] GFR/1.73 sq M predicted among non-blacks MDRD (S/P/Bld) [Vol rate/Area] mL/min/{1.73_m2} Normal >60 [facility] Comment on above: Result Comment: KDIG O guidelines provide the following GFR categories: Stage GFR(ml/min/1.73 m2) Terms G1 >=90 Normal or high G2 60-89 Mildly decreased* G3a 45-59 Mildly to moderately decreased G3b 30-44 Moderately to severely decreased G4 15-29 Severely decreased G5 <15 Kidney failure *Relative to young adult level. In the absence of evidence of kidney damage, neither GFR category G1 nor G2 fulfill the criteria for CKD. The CKD-EPI equation is validated in individuals 18 years of age and older. Currently the best equation for estimating glomerular filtration rate (GFR) from serum creatinine in children is the Bedside Oshea equation. It is less accurate in patients with extremes of muscle mass, restriction of dietary protein, ingestion of creatine, extra-renal metabolism of creatinine, or treatment with medications that affect renal tubular creatinine secretion. Performed By: #### H NGUYEN MG3, BMP3 #### [facility] [address] [place], [place] Urea nitrogen [Mass/Vol] 7 mg/dL Normal 7-20 [facility] Comment on above: Performed By: #### H NGUYEN MG3, BMP3 #### [facility] [address] [place], [place] Chloride [Moles/Vol] 103 mmol/L Normal 98-107 [facility] Comment on above: Performed By: #### H EMOG, MG3, BMP3 #### [facility] [address] [place], [place] Potassium [Moles/Vol] 3.7 mmol/L Normal 3.5-5.1 [facility] Comment on above: Performed By: #### H EMOG, MG3, BMP3 #### [facility] [address] [place], [place] Sodium [Moles/Vol] 139 mmol/L Normal 135-145 [facility] Comment on above: Performed By: #### H EMOG, MG3, BMP3 #### [facility] [address] [place], [place] Anion gap [Moles/Vol] 4 mmol/L [place], [place] Calcium [Mass/Vol] 7.6 mg/dL Low 8.4 - 10. 4 mg/dL [place], [place] Chloride [Moles/Vol] 103 mmol/L 98 - 10 7 mmol/L [place], [place] CO2 [Moles/Vol] 33 mmol/L High 22 - 30 mmol/L [place] Creatinine [Mass/Vol] 0.21 mg/dL Low 0.52 - 1.25 mg/dL [place], [place] EGFR IF NonAfrican [place]an >90.0 >60 mL/min [place] Comment on above: KDIGO guidelines pro vide the following GFR categories: Stage GFR(ml/min/1.73 m2) Terms G1 >=90 Normal or high G2 60-89 Mildly decreased* G3a 45-59 Mildly to moderately decreased G3b 30-44 Moderately to severely decreased G4 15-29 Severely decreased G5 <15 Kidney failure *Relative to young adult level. In the absence of evidence of kidney damage, neither GFR category G1 nor G2 fulfill the criteria for CKD. The CKD-EPI equation is validated in individuals 18 years of age and older. Currently the best equation for estimating glomerular filtration rate (GFR) from serum creatinine in children is the Bedside Oshea equation. It is less accurate in patients with extremes of muscle mass, restriction of dietary protein, ingestion of creatine, extra-renal metabolism of creatinine, or treatment with medications that affect renal tubular creatinine secretion. GFR/1.73 sq M predicted among blacks MDRD (S/P/Bld) [Vol rate/Area] mL/min/{1.73_m2} >60 mL/min [place] Glucose [Mass/Vol] 209 mg/dL High 70 - 100 mg/dL [place] Potassium [Moles/Vol] 3.7 mmol/L 3.5 - 5.1 mmol/L [place] Sodium [Moles/Vol] 139 mmol/L 135 - 145 mmol/L [place] Urea nitrogen [Mass/Vol] 7 mg/dL 7 - 20 mg/dL [place] Calcium [Mass/Vol] 7.4 mg/dL Low 8.4-10.4 [facility] Comment on above: Performed By: #### H EMOG, MG3, BMP3 #### [facility] [address] [place], [place] Anion gap [Moles/Vol] 3 Normal [facility] Comment on above: Performed By: #### Herman EMOG, MG3, BMP3 #### [facility] [address] [place], [place] CO2 [Moles/Vol] 31 mmol/L High 22-30 [facility] Comment on above: Performed By: #### H EMOG, MG3, BMP3 #### [facility] [address] [place] [address] Creatinine [Mass/Vol] 0.26 mg/dL Low 0.52-1.25 [facility] Comment on above: Performed By: #### H EMOG, MG3, BMP3 #### [facility] [address] [place] [address] GFR/1.73 sq M predicted among blacks MDRD (S/P/Bld) [Vol rate/Area] mL/min/{1.73_m2} Normal >60 [facility] Comment on above: Performed By: #### H EMOG, MG3, BMP3 #### [facility] [address] [place] [address] GFR/1.73 sq M predicted among non-blacks MDRD (S/P/Bld) [Vol rate/Area] mL/min/{1.73_m2} Normal >60 [facility] Comment on above: Result Comment: KDIG O guidelines provide the following GFR categories: Stage GFR(ml/min/1.73 m2) Terms G1 >=90 Normal or high G2 60-89 Mildly decreased* G3a 45-59 Mildly to moderately decreased G3b 30-44 Moderately to severely decreased G4 15-29 Severely decreased G5 <15 Kidney failure *Relative to young adult level. In the absence of evidence of kidney damage, neither GFR category G1 nor G2 fulfill the criteria for CKD. The CKD-EPI equation is validated in individuals 18 years of age and older. Currently the best equation for estimating glomerular filtration rate (GFR) from serum creatinine in children is the Bedside Oshea equation. It is less accurate in patients with extremes of muscle mass, restriction of dietary protein, ingestion of creatine, extra-renal metabolism of creatinine, or treatment with medications that affect renal tubular creatinine secretion. Performed By: #### H NGUYEN MG3, BMP3 #### [address] Glucose [Mass/Vol] 216 mg/dL High 70-100 [facility] Comment on above: Performed By: #### H MG NGUYEN3, BMP3 #### [address] Urea nitrogen [Mass/Vol] 7 mg/dL Normal 7-20 [facility] Comment on above: Performed By: #### H NGUYEN MG3, BMP3 #### [address] Chloride [Moles/Vol] 107 mmol/L Normal 98-107 [facility] Comment on above: Performed By: #### H NGUYEN MG3, BMP3 #### [address] Potassium [Moles/Vol] 3.8 mmol/L Normal 3.5-5.1 [facility] Comment on above: Performed By: #### H NGUYEN MG3, BMP3 #### [address] Sodium [Moles/Vol] 142 mmol/L Normal 135-145 [facility] Comment on above: Performed By: #### H NGUYEN MG3, BMP3 #### [facility] [address] [place], [place] Anion gap [Moles/Vol] 3 mmol/L [place], [place] Calcium [Mass/Vol] 7.4 mg/dL Low 8.4 - 10. 4 mg/dL [place] Chloride [Moles/Vol] 107 mmol/L 98 - 10 7 mmol/L [place] CO2 [Moles/Vol] 31 mmol/L High 22 - 30 mmol/L [place] Creatinine [Mass/Vol] 0.26 mg/dL Low 0.52 - 1.25 mg/dL [place] EGFR IF NonAfrican [place]an >90.0 >60 mL/min [place] Comment on above: KDIGO guidelines pro vide the following GFR categories: Stage GFR(ml/min/1.73 m2) Terms G1 >=90 Normal or high G2 60-89 Mildly decreased* G3a 45-59 Mildly to moderately decreased G3b 30-44 Moderately to severely decreased G4 15-29 Severely decreased G5 <15 Kidney failure *Relative to young adult level. In the absence of evidence of kidney damage, neither GFR category G1 nor G2 fulfill the criteria for CKD. The CKD-EPI equation is validated in individuals 18 years of age and older. Currently the best equation for estimating glomerular filtration rate (GFR) from serum creatinine in children is the Bedside Oshea equation. It is less accurate in patients with extremes of muscle mass, restriction of dietary protein, ingestion of creatine, extra-renal metabolism of creatinine, or treatment with medications that affect renal tubular creatinine secretion. GFR/1.73 sq M predicted among blacks MDRD (S/P/Bld) [Vol rate/Area] mL/min/{1.73_m2} >60 mL/min [place] Glucose [Mass/Vol] 216 mg/dL High 70 - 100 mg/dL [place] Potassium [Moles/Vol] 3.8 mmol/L 3.5 - 5.1 mmol/L [place] Sodium [Moles/Vol] 142 mmol/L 135 - 145 mmol/L [place] Urea nitrogen [Mass/Vol] 7 mg/dL 7 - 20 mg/dL [place] CBCon 10-14-2019 Erythrocyte distribution width (RBC) [Ratio] 20.5 % High 11.5 - 14.5 % [place] Hematocrit (Bld) [Volume fraction] 31.0 % Low 35 - 47 % [place] Hemoglobin (Bld) [Mass/Vol] 10.1 g/dL Low 11.7 - 16 g/dL [place] MCH (RBC) [Entitic mass] 27.5 pg 26 - 34 pg [place] MCHC (RBC) [Mass/Vol] 32.5 % 32 - 36 % [place], [place] MCV (RBC) [Entitic vol] 84.4 fL 79 - 98 fL [place] Platelet mean volume (Bld) [Entitic vol] 8.9 fL 7.4 - 10.4 fL [place], [place] Platelets (Bld) [#/Vol] 473 10*3/uL High 140 - 440 10*3/uL [place] RBC (Bld) [#/Vol] 3.67 10*6/uL Low 3.8 - 5.2 10*6/uL [place] WBC (Bld) [#/Vol] 18.6 10*3/uL High 3.6 - 10.7 10*3/uL [place] CR Abdomen APon 10-14-2019 CR Abdomen AP Patient Name: DORY BASURTO Diagnostic Radiology Exam Date/Time 10/14/2019 16:27:23 EDT Exam CR Abdomen AP Ordering Physician MILES POMPA Accession Number [id number] CPT4 Codes 82876 () Reason For Exam NG tube placement Report KUB CLINICAL INDICATION: NG tube placement COMPARISON: 10/13/2019 Supine image of the abdomen was obtained. Oral gastric tube tip projects in the region of the gastric body. There is air noted in stomach and colon. Small bowel air appears decreased compared to yesterday's exam. Right upper and midabdomen is gasless which correlates with the contour of the liver from the CT of 10/06/2019. Infiltrates at the lung bases are unchanged from the prior exam. IMPRESSION: NG tube tip projects in the gastric body. Report Dictated on Final Dictated: 10/14/2019 4:29 pm Dictating Physician: MD CHANDLER DIANE Signed Date and Time: 10/14/2019 4:32 pm Signed by: MD CHANDLER DIANE Transcribed Date and Time: 10/14/2019 4:29 Normal [facility] CR Chest Portableon 10-14-19 20 CR Chest Portable Patient Name: DORY BASURTO Diagnostic Radiology Exam Date/Time 10/14/2019 10:17:39 EDT Exam CR Chest Portable Ordering Physician TIERNEY WHITE Accession Number [id number] CPT4 Codes 15427 () Reason For Exam SOB Report PORTABLE CHEST: INDICATION: Shortness of breath COMPARISON: 10/12/2019 Obtained at 1003 hours. A single portable AP radiograph of the chest was obtained. The heart is normal in size. The mediastinal silhouette is normal. Again noted are diffuse bilateral reticulonodular infiltrates, unchanged. A small right effusion is suspected. There is no pleural thickening. Arthritic changes of the spine are present. The NG tube has been removed in the interim. IMPRESSION: Diffuse bilateral reticulonodular infiltrates, unchanged. The NG tube has been removed. Report Dictated on Final Dictated: 10/14/2019 10:32 am Dictating Physician: DO CELAYA ALFRED Signed Date and Time: 10/14/2019 10:33 am Signed by: DO CELAYA ALFRED Transcribed Date and Time: 10/14/2019 10:32 Normal [facility] Calcium, Ionizedon 0 Ionized Ca 4.20 mg/dL Low 4.3 - 5.2 mg/dL [place], [place] pH (Bld) 7.46 [pH] [place] Calcium,Ionizedon 10-14-2019 Ionized Ca,Measured 4.20 mg/dL Low 4.30-5.20 [facility] Comment on above: Performed By: #### H NGUYEN MG3, BMP3 #### [facility] [address] [place], [place] pH, Ionized Calcium 7.46 Normal 7.31-7.46 [facility] Comment on above: Performed By: #### H EMOG, MG3, BMP3 #### [facility] [address] [place], [place] Glucose,Bedsideon 10-14-2019 Glucose [Mass/Vol] 101 mg/dL High 70-100 [facility] Comment on above: Result Comment: Test performed by glucose meter. Results may be 10%-15% lower than serum/plasma values. (CLIA ID [id number]) Performed By: #### H EMOPerla, MG3, BMP3 #### [place] [address] [place] [place], [place] Glucose [Mass/Vol] 224 mg/dL High 70-100 [facility] Comment on above: Result Comment: Test performed by glucose meter. Results may be 10%-15% lower than serum/plasma values. (CLIA ID [id number]) Performed By: #### H NGUYEN MG3, BMP3 #### [facility] [employer] [place] [address] [address] [place], [place] Glucose [Mass/Vol] 244 mg/dL High 70-100 [facility] Comment on above: Result Comment: Test performed by glucose meter. Results may be 10%-15% lower than serum/plasma values. (CLIA ID [id number]) Performed By: #### H EMOG, MG3, BMP3 #### [facility] [employer] [facility] [address] [place], [place] Hemogramon 10-14-2019 Erythrocyte distribution width (RBC) [Ratio] 20.5 % High 11.5-14.5 [facility] Comment on above: Performed By: #### H EMOG, MG3, BMP3 #### [facility] [address] [place], [place] Hematocrit (Bld) [Volume fraction] 31.0 % Low 35.0-47.0 [facility] Comment on above: Performed By: #### H CANDELARIA CEDILLO, BMP3 #### [place] [address] [address] [place], [place] Hemoglobin (Bld) [Mass/Vol] 10.1 g/dL Low 11.7-16.0 [facility] Comment on above: Performed By: #### MG FLORIDALMA3, BMP3 #### [place] [address] [address] [place], [place] MCH (RBC) [Entitic mass] 27.5 pg Normal 26.0-34.0 [facility] Comment on above: Performed By: #### MG FLORIDALMA3, BMP3 #### [place] [address] [address] [place], [place] MCHC (RBC) [Mass/Vol] 32.5 % Normal 32.0-36.0 [facility] Comment on above: Performed By: #### MG FLORIDALMA3, BMP3 #### [place] [address] [address] [place], [place] MCV (RBC) [Entitic vol] 84.4 fL Normal 79.0-98.0 [facility] Comment on above: Performed By: #### Herman CEDILLO MG3, BMP3 #### [place] [address] [address] [place], [place] Platelet mean volume (Bld) [Entitic vol] 8.9 fL Normal 7.4-10.4 [facility] Comment on above: Performed By: #### Herman CEDILLO MG3, BMP3 #### [place] [address] [address] [place], [place] Platelets (Bld) [#/Vol] 473 10*3/uL High 140-440 [facility] Comment on above: Performed By: #### Herman CEDILLO MG3, BMP3 #### [place] [address] [place], [place] RBC (Bld) [#/Vol] 3.67 10*6/uL Low 3.80-5.20 [facility] Comment on above: Performed By: #### H EMOPerla, MG3, BMP3 #### [facility] [address] [place], [place] WBC (Bld) [#/Vol] 18.6 10*3/uL High 3.6-10.7 [facility] Comment on above: Performed By: #### H EMOG, MG3, BMP3 #### [facility] [address] [place], [place] Hepatic Functionon 0 ALT [Catalytic activity/Vol] 19 U/L Normal 0-34 [facility] Comment on above: Result Comment: The ALT test is performed by an updated assay method. Please note that the reference intervals have been changed and are now sex specific. Performed By: #### H NGUYEN MG3, BMP3 #### [facility] [address] [place], [place] ALP [Catalytic activity/Vol] 193 U/L High 38-126 [facility] Comment on above: Performed By: #### H EMOPerla MG3, BMP3 #### [facility] [address] [place], [place] AST [Catalytic activity/Vol] 39 U/L Normal 15-46 [facility] Comment on above: Performed By: #### H NGUYEN MG3, BMP3 #### [facility] [address] [place], [place] Bilirubin [Mass/Vol] 0.5 mg/dL Normal 0.2-1.3 [facility] Comment on above: Performed By: #### H EMOPerla, MG3, BMP3 #### [facility] [address] [place], [place] Bilirubin.direct [Mass/Vol] 0.0 mg/dL Normal 0.0-0.3 [facility] Comment on above: Performed By: #### H EMOPerla, MG3, BMP3 #### [facility] [address] [place], [place] Protein [Mass/Vol] 4.8 g/dL Low 6.3-8.2 [facility] Comment on above: Performed By: #### H EMOPerla, MG3, BMP3 #### [facility] [address] [place], [place] Albumin [Mass/Vol] 2.2 g/dL Low 3.5-5.0 [facility] Comment on above: Performed By: #### H EMOG, MG3, BMP3 #### [facility] [address] [place], [place] Hepatic Function Panelon Albumin [Mass/Vol] 2.2 g/dL Low 3.5 - 5 g/dL [place], [place] ALP [Catalytic activity/Vol] 193 U/L High 38 - 126 U/L [place] ALT [Catalytic activity/Vol] 19 U/L 0 - 34 U/L [place] Comment on above: The ALT test is perf ormed by an updated assay method. Please note that the reference intervals have been changed and are now sex specific. AST [Catalytic activity/Vol] 39 U/L 15 - 46 U/L [place] Bilirubin Ql (U) 0.5 mg/dL 0.2 - 1.3 mg/dL [place] Bilirubin.direct [Mass/Vol] 0.0 mg/dL 0 - 0.3 mg/dL [place] Protein [Mass/Vol] 4.8 g/dL Low 6.3 - 8.2 g/dL [place] Magnesiumon 10-14-2019 Magnesium [Mass/Vol] 1.7 mg/dL Normal 1.6-2.3 [facility] Comment on above: Performed By: #### H EMOG, MG3, BMP3 #### [facility] [address] [place], [place] Magnesium [Mass/Vol] 1.7 mg/dL 1.6 - 2 .3 mg/dL [place] Magnesium [Mass/Vol] 1.8 mg/dL Normal 1.6-2.3 [facility] Comment on above: Performed By: #### H EMOG, MG3, BMP3 #### [facility] [address] [place], [place] Magnesium [Mass/Vol] 1.8 mg/dL 1.6 - 2 .3 mg/dL [facility], [place] Otheron 10-14-2019 Interpretation and review of laboratory results Abnormal [facility] Test Performed by [facility], [address] [place] [address] [facility] [place] Interpretation and review of laboratory results Abnormal [facility] Test Performed by [facility], [address] [place] [address] [facility], [place] Interpretation and review of laboratory results Abnormal [facility] Test Performed by [facility], [address] [place] [address] [facility] POCT Glucoseon 10-14-2019 Glucose [Mass/Vol] 101 mg/dL High 70 - 100 mg/dL [facility] Comment on above: Test performed by gl ucose meter. Results may be 10%-15% lower than serum/plasma values. (CLIA ID [id number]) Interpretation and review of laboratory results Abnormal [facility] [place] Test Performed by [facility], [address] [place] [address] [facility], [place] Glucose [Mass/Vol] 224 mg/dL High 70 - 100 mg/dL [facility] Comment on above: Test performed by gl ucose meter. Results may be 10%-15% lower than serum/plasma values. (CLIA ID [id number]) Interpretation and review of laboratory results Abnormal [facility] [employer], [place] Test Performed by [facility], [address] [place] [address] [facility], [place] Glucose [Mass/Vol] 244 mg/dL High 70 - 100 mg/dL [facility] Comment on above: Test performed by gl ucose meter. Results may be 10%-15% lower than serum/plasma values. (CLIA ID [id number]) Interpretation and review of laboratory results Abnormal [facility] Test Performed by [facility], [address] [place] [address] [facility], [place] Phosphoruson 10-14-2019 Phosphate [Mass/Vol] 2.1 mg/dL Low 2.5-4.5 [facility] Comment on above: Performed By: #### CANDELARIA HEDRICK, BMP3 #### [facility] [address] [place] [address] Phosphate [Mass/Vol] 2.1 mg/dL Low 2.5 - 4 .5 mg/dL [place] Phosphate [Mass/Vol] 2.0 mg/dL Low 2.5-4.5 [facility] Comment on above: Performed By: #### CANDELARIA HEDRICK, BMP3 #### [facility] [address] [place] [address] Phosphate [Mass/Vol] 2.0 mg/dL Low 2.5 - 4 .5 mg/dL [place] Prothrombin Timeon 0 INR Coag (PPP) [Relative time] 1.1 Normal 0.9-1.1 [facility] Comment on above: Result Comment: Mark mmended Anticoagulant Therapy: SEE BELOW ----- INR of 2.0 - 3.0 : - Prophylaxis of Venous Thrombosis (high-risk surgery) - Treatment of Venous Thrombosis - Treatment of Pulmonary Embolism (Includes tissue heart valves, Acute Myocardial Infarction to prevent systemic embolism, Valvular Heart Disease, and Atrial Fibrillation) ----- INR of 2.5 - 3.5 : - Mechanical Prosthetic Valves (high risk) - If oral anticoagulant therapy is used to prevent Myocardial Infarction Performed By: #### MG FLORIDALMA3, BMP3 #### [facility] [address] [place] [address] PT Coag (PPP) [Time] 11.6 s Normal 9.0-12.0 [facility] Comment on above: Result Comment: . Performed By: #### Herman CEDILLO MG3, BMP3 #### [facility] [address] [place] [address] Protime-INRon 10-14-2019 INR Coag (PPP) [Relative time] 1.1 {INR} [place], [place] Comment on above: Recommended Anticoag ulant Therapy: SEE BELOW ----- INR of 2.0 - 3.0 : - Prophylaxis of Venous Thrombosis (high-risk surgery) - Treatment of Venous Thrombosis - Treatment of Pulmonary Embolism (Includes tissue heart valves, Acute Myocardial Infarction to prevent systemic embolism, Valvular Heart Disease, and Atrial Fibrillation) ----- INR of 2.5 - 3.5 : - Mechanical Prosthetic Valves (high risk) - If oral anticoagulant therapy is used to prevent Myocardial Infarction PT Coag (PPP) [Time] 11.6 s 9 - 12 s [place], [place] Comment on above: . Test Performed by [facility], [address] [place] [id number] [place] [address] XR ABDOMEN (KUB) (SINGLE AP VIEW)on 10-14-2019 Patient Name: DORY BASURTO ---Diagnostic Radiology--- Exam Date/Time 10/14/2019 16:27:23 EDT Exam CR Abdomen AP Ordering Physician MILES POMPA Accession Number [id number] CPT4 Codes 31745 () Reason For Exam NG tube placement Report KUB CLINICAL INDICATION: NG tube placement COMPARISON: 10/13/2019 Supine image of the abdomen was obtained. Oral gastric tube tip projects in the region of the gastric body. There is air noted in stomach and colon. Small bowel air appears decreased compared to yesterday's exam. Right upper and midabdomen is gasless which correlates with the contour of the liver from the CT of 10/06/2019. Infiltrates at the lung bases are unchanged from the prior exam. IMPRESSION: NG tube tip projects in the gastric body. Report Dictated on --- Final --- Dictated: 10/14/2019 4:29 pm Dictating Physician: MD CHANDLER DIANE Signed Date and Time: 10/14/2019 4:32 pm Signed by: MD CHANDLER DIANE Transcribed Date and Time: 10/14/2019 4:29 [place], [place] Ezio, [employer] Incoming Radiology Results From [facility] - 10/14/2019 4:34 PM EDT Patient Name: DORY BASURTO ---Diagnostic Radiology--- Exam Date/Time 10/14/2019 16:27:23 EDT Exam CR Abdomen AP Ordering Physician MILES POMPA Accession Number [id number] CPT4 Codes 86017 () Reason For Exam NG tube placement Report KUB CLINICAL INDICATION: NG tube placement COMPARISON: 10/13/2019 Supine image of the abdomen was obtained. Oral gastric tube tip projects in the region of the gastric body. There is air noted in stomach and colon. Small bowel air appears decreased compared to yesterday's exam. Right upper and midabdomen is gasless which correlates with the contour of the liver from the CT of 10/06/2019. Infiltrates at the lung bases are unchanged from the prior exam. IMPRESSION: NG tube tip projects in the gastric body. Report Dictated on --- Final --- Dictated: 10/14/2019 4:29 pm Dictating Physician: MD CHANDLER DIANE Signed Date and Time: 10/14/2019 4:32 pm Signed by: MD CHANDLER DIANE Transcribed Date and Time: 10/14/2019 4:29 [place], [place] XR CHEST PORTABLEon 10-14-19 [facility], [employer] Incoming Radiology Results From [facility] - 10/14/2019 10:34 AM EDT Patient Name: DORY BASURTO ---Diagnostic Radiology--- Exam Date/Time 10/14/2019 10:17:39 EDT Exam CR Chest Portable Ordering Physician TIERNEY WHITE Accession Number [id number] CPT4 Codes 19578 () Reason For Exam SOB Report PORTABLE CHEST: INDICATION: Shortness of breath COMPARISON: 10/12/2019 Obtained at 1003 hours. A single portable AP radiograph of the chest was obtained. The heart is normal in size. The mediastinal silhouette is normal. Again noted are diffuse bilateral reticulonodular infiltrates, unchanged. A small right effusion is suspected. There is no pleural thickening. Arthritic changes of the spine are present. The NG tube has been removed in the interim. IMPRESSION: Diffuse bilateral reticulonodular infiltrates, unchanged. The NG tube has been removed. Report Dictated on --- Final --- Dictated: 10/14/2019 10:32 am Dictating Physician: DO CELAYA ALFRED Signed Date and Time: 10/14/2019 10:33 am Signed by: DO CELAYA ALFRED Transcribed Date and Time: 10/14/2019 10:32 [place], [place] Patient Name: DORY BASURTO ---Diagnostic Radiology--- Exam Date/Time 10/14/2019 10:17:39 EDT Exam CR Chest Portable Ordering Physician TIERNEY WHITE Accession Number [id number] CPT4 Codes 15892 () Reason For Exam SOB Report PORTABLE CHEST: INDICATION: Shortness of breath COMPARISON: 10/12/2019 Obtained at 1003 hours. A single portable AP radiograph of the chest was obtained. The heart is normal in size. The mediastinal silhouette is normal. Again noted are diffuse bilateral reticulonodular infiltrates, unchanged. A small right effusion is suspected. There is no pleural thickening. Arthritic changes of the spine are present. The NG tube has been removed in the interim. IMPRESSION: Diffuse bilateral reticulonodular infiltrates, unchanged. The NG tube has been removed. Report Dictated on --- Final --- Dictated: 10/14/2019 10:32 am Dictating Physician: DO CELAYA ALFRED Signed Date and Time: 10/14/2019 10:33 am Signed by: DO CELAYA ALFRED Transcribed Date and Time: 10/14/2019 10:32 [place], [place] Basic Metabolic Panelon 09-22 Anion gap [Moles/Vol] 3 Normal [facility] Comment on above: Performed By: #### H EMOG, MG3, BMP3 #### [facility] [address] [place] [address] Calcium [Mass/Vol] 7.5 mg/dL Low 8.4-10.4 [facility] Comment on above: Performed By: #### H EMOG, MG3, BMP3 #### [facility] [address] [place] [address] CO2 [Moles/Vol] 28 mmol/L Normal 22-30 [facility] Comment on above: Performed By: #### H EMOG, MG3, BMP3 #### [facility] [address] [place] [address] Glucose [Mass/Vol] 202 mg/dL High 70-100 [facility] Comment on above: Performed By: #### H EMOG, MG3, BMP3 #### [facility] [address] [place] [address] Urea nitrogen [Mass/Vol] 5 mg/dL Low 7-20 [facility] Comment on above: Performed By: #### H EMOG, MG3, BMP3 #### [facility] [address] [place] [address] Creatinine [Mass/Vol] 0.21 mg/dL Low 0.52-1.25 [facility] Comment on above: Performed By: #### H EMOG, MG3, BMP3 #### [facility] [address] [place] [address] GFR/1.73 sq M predicted among blacks MDRD (S/P/Bld) [Vol rate/Area] mL/min/{1.73_m2} Normal >60 [facility] Comment on above: Performed By: #### H EMETERIOG, MG3, BMP3 #### [facility] [address] [place] [address] GFR/1.73 sq M predicted among non-blacks MDRD (S/P/Bld) [Vol rate/Area] mL/min/{1.73_m2} Normal >60 [facility] Comment on above: Result Comment: KDIG O guidelines provide the following GFR categories: Stage GFR(ml/min/1.73 m2) Terms G1 >=90 Normal or high G2 60-89 Mildly decreased* G3a 45-59 Mildly to moderately decreased G3b 30-44 Moderately to severely decreased G4 15-29 Severely decreased G5 <15 Kidney failure *Relative to young adult level. In the absence of evidence of kidney damage, neither GFR category G1 nor G2 fulfill the criteria for CKD. The CKD-EPI equation is validated in individuals 18 years of age and older. Currently the best equation for estimating glomerular filtration rate (GFR) from serum creatinine in children is the Bedside Oshea equation. It is less accurate in patients with extremes of muscle mass, restriction of dietary protein, ingestion of creatine, extra-renal metabolism of creatinine, or treatment with medications that affect renal tubular creatinine secretion. Performed By: #### H CANDELARIA CEDILLO BMP3 #### [facility] [address] [place], [place] Potassium [Moles/Vol] 3.8 mmol/L Normal 3.5-5.1 [facility] Comment on above: Performed By: #### H CANDELARIA CEDILLO, BMP3 #### [facility] [address] [place], [place] Sodium [Moles/Vol] 140 mmol/L Normal 135-145 [facility] Comment on above: Performed By: #### H CANDELARIA CEDILLO BMP3 #### [facility] [address] [place], [place] Chloride [Moles/Vol] 109 mmol/L High 98-107 [facility] Comment on above: Performed By: #### H CANDELARIA CEDILLO, BMP3 #### [facility] [address] [place], [place] Anion gap [Moles/Vol] 3 mmol/L [place], [place] Calcium [Mass/Vol] 7.5 mg/dL Low 8.4 - 10. 4 mg/dL [place], [place] Chloride [Moles/Vol] 109 mmol/L High 98 - 10 7 mmol/L [place] CO2 [Moles/Vol] 28 mmol/L 22 - 30 mmol/L [place] Creatinine [Mass/Vol] 0.21 mg/dL Low 0.52 - 1.25 mg/dL [place] EGFR IF NonAfrican [place]an >90.0 >60 mL/min [place] Comment on above: KDIGO guidelines pro vide the following GFR categories: Stage GFR(ml/min/1.73 m2) Terms G1 >=90 Normal or high G2 60-89 Mildly decreased* G3a 45-59 Mildly to moderately decreased G3b 30-44 Moderately to severely decreased G4 15-29 Severely decreased G5 <15 Kidney failure *Relative to young adult level. In the absence of evidence of kidney damage, neither GFR category G1 nor G2 fulfill the criteria for CKD. The CKD-EPI equation is validated in individuals 18 years of age and older. Currently the best equation for estimating glomerular filtration rate (GFR) from serum creatinine in children is the Bedside Oshea equation. It is less accurate in patients with extremes of muscle mass, restriction of dietary protein, ingestion of creatine, extra-renal metabolism of creatinine, or treatment with medications that affect renal tubular creatinine secretion. GFR/1.73 sq M predicted among blacks MDRD (S/P/Bld) [Vol rate/Area] mL/min/{1.73_m2} >60 mL/min [place] Glucose [Mass/Vol] 202 mg/dL High 70 - 100 mg/dL [place] Potassium [Moles/Vol] 3.8 mmol/L 3.5 - 5.1 mmol/L [place] Sodium [Moles/Vol] 140 mmol/L 135 - 145 mmol/L [place] Urea nitrogen [Mass/Vol] 5 mg/dL Low 7 - 20 mg/dL [place] Calcium [Mass/Vol] 7.3 mg/dL Low 8.4-10.4 [facility] Comment on above: Performed By: #### H EMOG, MG3, BMP3 #### [facility] [address] [place], [place] Glucose [Mass/Vol] 244 mg/dL High 70-100 [facility] Comment on above: Performed By: #### H EMOG, MG3, BMP3 #### [facility] [address] [place], [place] Urea nitrogen [Mass/Vol] 5 mg/dL Low 7-20 [facility] Comment on above: Performed By: #### H EMOG, MG3, BMP3 #### [facility] [address] [place], [place] Anion gap [Moles/Vol] 4 Normal [facility] Comment on above: Performed By: #### H EMOG, MG3, BMP3 #### [facility] [address] [place], [place] CO2 [Moles/Vol] 27 mmol/L Normal 22-30 [facility] Comment on above: Performed By: #### H NGUYEN MG3, BMP3 #### [facility] [address] [place], [place] Creatinine [Mass/Vol] 0.24 mg/dL Low 0.52-1.25 [facility] Comment on above: Performed By: #### H NGUYEN MG3, BMP3 #### [facility] [address] [place], [place] GFR/1.73 sq M predicted among blacks MDRD (S/P/Bld) [Vol rate/Area] mL/min/{1.73_m2} Normal >60 [facility] Comment on above: Performed By: #### H NGUYEN MG3, BMP3 #### [place] [address] [place], [place] GFR/1.73 sq M predicted among non-blacks MDRD (S/P/Bld) [Vol rate/Area] mL/min/{1.73_m2} Normal >60 [facility] Comment on above: Result Comment: KDIG O guidelines provide the following GFR categories: Stage GFR(ml/min/1.73 m2) Terms G1 >=90 Normal or high G2 60-89 Mildly decreased* G3a 45-59 Mildly to moderately decreased G3b 30-44 Moderately to severely decreased G4 15-29 Severely decreased G5 <15 Kidney failure *Relative to young adult level. In the absence of evidence of kidney damage, neither GFR category G1 nor G2 fulfill the criteria for CKD. The CKD-EPI equation is validated in individuals 18 years of age and older. Currently the best equation for estimating glomerular filtration rate (GFR) from serum creatinine in children is the Bedside Oshea equation. It is less accurate in patients with extremes of muscle mass, restriction of dietary protein, ingestion of creatine, extra-renal metabolism of creatinine, or treatment with medications that affect renal tubular creatinine secretion. Performed By: #### H NGUYEN MG3, BMP3 #### [facility] [address] [place], [place] Potassium [Moles/Vol] 3.8 mmol/L Normal 3.5-5.1 [facility] Comment on above: Result Comment: Slig htly hemolysed, interpret with caution. Performed By: #### H EMOG, MG3, BMP3 #### [facility] [address] [place] [address] Sodium [Moles/Vol] 139 mmol/L Normal 135-145 [facility] Comment on above: Performed By: #### H EMOG, MG3, BMP3 #### [facility] [address] [place] [address] Chloride [Moles/Vol] 107 mmol/L Normal 98-107 [facility] Comment on above: Performed By: #### H EMOG, MG3, BMP3 #### [facility] [address] [place] [address] Anion gap [Moles/Vol] 4 mmol/L [place], [place] Calcium [Mass/Vol] 7.3 mg/dL Low 8.4 - 10. 4 mg/dL [place] Chloride [Moles/Vol] 107 mmol/L 98 - 10 7 mmol/L [place] CO2 [Moles/Vol] 27 mmol/L 22 - 30 mmol/L [place] Creatinine [Mass/Vol] 0.24 mg/dL Low 0.52 - 1.25 mg/dL [place] EGFR IF NonAfrican [place]an >90.0 >60 mL/min [place] Comment on above: KDIGO guidelines pro vide the following GFR categories: Stage GFR(ml/min/1.73 m2) Terms G1 >=90 Normal or high G2 60-89 Mildly decreased* G3a 45-59 Mildly to moderately decreased G3b 30-44 Moderately to severely decreased G4 15-29 Severely decreased G5 <15 Kidney failure *Relative to young adult level. In the absence of evidence of kidney damage, neither GFR category G1 nor G2 fulfill the criteria for CKD. The CKD-EPI equation is validated in individuals 18 years of age and older. Currently the best equation for estimating glomerular filtration rate (GFR) from serum creatinine in children is the Bedside Oshea equation. It is less accurate in patients with extremes of muscle mass, restriction of dietary protein, ingestion of creatine, extra-renal metabolism of creatinine, or treatment with medications that affect renal tubular creatinine secretion. GFR/1.73 sq M predicted among blacks MDRD (S/P/Bld) [Vol rate/Area] mL/min/{1.73_m2} >60 mL/min [place] Glucose [Mass/Vol] 244 mg/dL High 70 - 100 mg/dL [place] Potassium [Moles/Vol] 3.8 mmol/L 3.5 - 5.1 mmol/L [place] Comment on above: Slightly hemolysed, interpret with caution. Sodium [Moles/Vol] 139 mmol/L 135 - 145 mmol/L [place] Urea nitrogen [Mass/Vol] 5 mg/dL Low 7 - 20 mg/dL [place] CBCon 10-13-2019 Erythrocyte distribution width (RBC) [Ratio] 19.9 % High 11.5 - 14.5 % [place] Hematocrit (Bld) [Volume fraction] 29.3 % Low 35 - 47 % [place] Hemoglobin (Bld) [Mass/Vol] 9.5 g/dL Low 11.7 - 16 g/dL [place] Interpretation and review of laboratory results Abnormal [place] MCH (RBC) [Entitic mass] 27.1 pg 26 - 34 pg [place] MCHC (RBC) [Mass/Vol] 32.4 % 32 - 36 % [place], [place] MCV (RBC) [Entitic vol] 83.7 fL 79 - 98 fL [place], [place] Platelet mean volume (Bld) [Entitic vol] 9.0 fL 7.4 - 10.4 fL [place] Platelets (Bld) [#/Vol] 453 10*3/uL High 140 - 440 10*3/uL [place] RBC (Bld) [#/Vol] 3.50 10*6/uL Low 3.8 - 5.2 10*6/uL [place] WBC (Bld) [#/Vol] 26.3 10*3/uL High 3.6 - 10.7 10*3/uL [place] [facility], [address] [place] [id number] [place], [place] CR Abdomen APon 10-13-2019 CR Abdomen AP Patient Name: DORY BASURTO Diagnostic Radiology Exam Date/Time 10/13/2019 02:44:16 EDT Exam CR Abdomen AP Ordering Physician [id number] ALY DIAZ Accession Number [id number] CPT4 Codes 67701 () Reason For Exam NG placement Report ABDOMEN: CLINICAL INDICATION: NG tube placement. TECHNIQUE: Supine AP view of abdomen and pelvis. COMPARISON: None. FINDINGS: NG tube tip overlies the gastric body. Left upper abdominal radiopaque linear densities/foreign bodies are unchanged in position. Diffuse bilateral interstitial infiltrates are redemonstrated. The bowel gas pattern is unremarkable. No renal or ureteral calculi. There is no organomegaly. The osseous structures are normal. IMPRESSION: NG tube tip overlies gastric body. No acute abdominal process. Report Dictated on Final Dictated: 10/13/2019 3:07 am Dictating Physician: PARKER PATEL DO, I Signed Date and Time: 10/13/2019 3:09 am Signed by: PARKER PATEL DO, I Transcribed Date and Time: 10/13/2019 3:07 Normal [facility] EKG 12 Leadon 10-13-2019 [facility] Test Date: 2019-10-12 Pat Name: Dory Basurto Department: 1AT3 Room: [facility] Gender: F Doctor Of Naprapathy: [id number] : 1955 Requested By: SHERRY SUAREZ Order Number: [id number] Reading MD: Paresh Cain Measurements Intervals [place] Rate: 141 P: 74 VT: 123 QRS: 73 QRSD: 81 T: 49 QT: 311 QTc: 476 Interpretive Statements MULTIFOCAL ATRIAL TACHYCARDIA (MAT) Low voltage, extremity leads occasional abberant conduction Electronically Signed On 10-13-2019 8:50:36 EDT by Paresh Cain [facility] ID Ezio, [facility] Incoming Cardiology Results From [facility] - 10/13/2019 8:51 AM EDT [facility] Test Date: 2019-10-12 Pat Name: Dory Basurto Department: 1AT3 Room: [facility] Gender: F Doctor Of Naprapathy: [id number] : 1955 Requested By: SHERRY SUAREZ Order Number: [id number] Reading MD: Paresh Cain Measurements Intervals [place] Rate: 141 P: 74 VT: 123 QRS: 73 QRSD: 81 T: 49 QT: 311 QTc: 476 Interpretive Statements MULTIFOCAL ATRIAL TACHYCARDIA (MAT) Low voltage, extremity leads occasional abberant conduction Electronically Signed On 10-13-2019 8:50:36 EDT by Paresh Cain [place], [place] Glucose,Bedsideon 10-13-2019 Glucose [Mass/Vol] 192 mg/dL High 70-100 [facility] Comment on above: Result Comment: Test performed by glucose meter. Results may be 10%-15% lower than serum/plasma values. (CLIA ID [id number]) Performed By: #### H EMOG, MG3, BMP3 #### [facility] [address] [place] [address] Glucose [Mass/Vol] 277 mg/dL [facility] [address] [facility] Comment on above: Result Comment: Test performed by glucose meter. Results may be 10%-15% lower than serum/plasma values. (CLIA ID [id number]) Performed By: #### H EMOG, MG3, BMP3 #### [facility] [address] [place] [address] Glucose [Mass/Vol] 202 mg/dL [place] [address] Comment on above: Result Comment: Test performed by glucose meter. Results may be 10%-15% lower than serum/plasma values. (CLIA ID [id number]) Performed By: #### H EMOG, MG3, BMP3 #### [facility] [address] [place] [address] Glucose [Mass/Vol] 229 mg/dL [place] [address] [facility] Comment on above: Result Comment: Test performed by glucose meter. Results may be 10%-15% lower than serum/plasma values. (CLIA ID [id number]) Performed By: #### H EMOG, MG3, BMP3 #### [facility] [address] [place] [address] Glucose [Mass/Vol] 188 mg/dL High 70-100 [facility] Comment on above: Result Comment: Test performed by glucose meter. Results may be 10%-15% lower than serum/plasma values. (CLIA ID [id number]) Performed By: #### H NGUYEN MG3, BMP3 #### [place] [address] [place], [place] Hemogramon 10-13-2019 Erythrocyte distribution width (RBC) [Ratio] 19.9 % High 11.5-14.5 [facility] Comment on above: Performed By: #### H NGUYEN MG3, BMP3 #### [place] [address] [place], [place] Hematocrit (Bld) [Volume fraction] 29.3 % Low 35.0-47.0 [facility] Comment on above: Performed By: #### H NGUYEN MG3, BMP3 #### [place] [address] [place], [place] Hemoglobin (Bld) [Mass/Vol] 9.5 g/dL Low 11.7-16.0 [facility] Comment on above: Performed By: #### H NGUYEN MG3, BMP3 #### [address] MCH (RBC) [Entitic mass] 27.1 pg Normal 26.0-34.0 [facility] Comment on above: Performed By: #### H NGUYEN MG3, BMP3 #### [place] [address] [place], [place] MCHC (RBC) [Mass/Vol] 32.4 % Normal 32.0-36.0 [facility] Comment on above: Performed By: #### H NGUYEN MG3, BMP3 #### [address] MCV (RBC) [Entitic vol] 83.7 fL Normal 79.0-98.0 [facility] Comment on above: Performed By: #### H NGUYEN MG3, BMP3 #### [place] [address] [place], [place] Platelet mean volume (Bld) [Entitic vol] 9.0 fL Normal 7.4-10.4 [facility] Comment on above: Performed By: #### H NGUYEN MG3, BMP3 #### [facility] [address] [place], [place] Platelets (Bld) [#/Vol] 453 10*3/uL High 140-440 [facility] Comment on above: Performed By: #### H NGUYEN MG3, BMP3 #### [facility] [address] [place], [place] RBC (Bld) [#/Vol] 3.50 10*6/uL Low 3.80-5.20 [facility] Comment on above: Performed By: #### H NGUYEN MG3, BMP3 #### [place] [address] [address] [place], [place] WBC (Bld) [#/Vol] 26.3 10*3/uL High 3.6-10.7 [facility] Comment on above: Performed By: #### H NGUYEN MG3, BMP3 #### [facility] [address] [place], [place] Hepatic Functionon 0 ALP [Catalytic activity/Vol] 110 U/L Normal 38-126 [facility] Comment on above: Result Comment: Slig htly hemolysed, interpret with caution. Performed By: #### H NGUYEN MG3, BMP3 #### [facility] [address] [place], [place] ALT [Catalytic activity/Vol] 20 U/L Normal 0-34 [facility] Comment on above: Result Comment: The ALT test is performed by an updated assay method. Please note that the reference intervals have been changed and are now sex specific. Performed By: #### H NGUYEN MG3, BMP3 #### [facility] [address] [place], [place] AST [Catalytic activity/Vol] 37 U/L Normal 15-46 [facility] Comment on above: Result Comment: Slig htly hemolysed, interpret with caution. Performed By: #### H EMOG, MG3, BMP3 #### [facility] [address] [place], [place] Bilirubin [Mass/Vol] 0.6 mg/dL Normal 0.2-1.3 [facility] Comment on above: Performed By: #### H EMOG, MG3, BMP3 #### [facility] [address], [place] Bilirubin.direct [Mass/Vol] 0.0 mg/dL Normal 0.0-0.3 [facility] Comment on above: Performed By: #### H EMOG, MG3, BMP3 #### [facility] [address] [place], [place] Protein [Mass/Vol] 5.0 g/dL Low 6.3-8.2 [facility] Comment on above: Performed By: #### H EMOG, MG3, BMP3 #### [place] [address] [address] [place], [place] Albumin [Mass/Vol] 2.4 g/dL Low 3.5-5.0 [facility] Comment on above: Performed By: #### H EMOG, MG3, BMP3 #### [place] [address] [address] [place], [place] Hepatic Function Panelon Albumin [Mass/Vol] 2.4 g/dL Low 3.5 - 5 g/dL [place], [place] ALP [Catalytic activity/Vol] 110 U/L 38 - 126 U/L [place] Comment on above: Slightly hemolysed, interpret with caution. ALT [Catalytic activity/Vol] 20 U/L 0 - 34 U/L [place] Comment on above: The ALT test is perf ormed by an updated assay method. Please note that the reference intervals have been changed and are now sex specific. AST [Catalytic activity/Vol] 37 U/L 15 - 46 U/L [place] Comment on above: Slightly hemolysed, interpret with caution. Bilirubin Ql (U) 0.6 mg/dL 0.2 - 1.3 mg/dL [place] Bilirubin.direct [Mass/Vol] 0.0 mg/dL 0 - 0.3 mg/dL [place] Protein [Mass/Vol] 5.0 g/dL Low 6.3 - 8.2 g/dL [place] Magnesiumon 10-13-2019 Magnesium [Mass/Vol] 2.2 mg/dL Normal 1.6-2.3 [facility] Comment on above: Performed By: #### H EMOG, MG3, BMP3 #### [place] [address] [place] [address] Magnesium [Mass/Vol] 2.2 mg/dL 1.6 - 2 .3 mg/dL [place] Magnesium [Mass/Vol] 2.1 mg/dL Normal 1.6-2.3 [facility] Comment on above: Result Comment: Slig htly hemolysed, interpret with caution. Performed By: #### H EMOG, MG3, BMP3 #### [place] [address] [place] [address] Magnesium [Mass/Vol] 2.1 mg/dL 1.6 - 2 .3 mg/dL [place] Comment on above: Slightly hemolysed, interpret with caution. Otheron 10-13-2019 Interpretation and review of laboratory results Abnormal [place], [place] Test Performed by [facility], [facility] [place] [address] [place] Interpretation and review of laboratory results Abnormal [place] Test Performed by [facility], [facility] [place] [address] [place], [place] POCT Glucoseon 10-13-2019 Glucose [Mass/Vol] 192 mg/dL High 70 - 100 mg/dL [place], [place] Comment on above: Test performed by ucose meter. Results may be 10%-15% lower than serum/plasma values. (CLIA ID [id number]) Interpretation and review of laboratory results Abnormal [place] Test Performed by [facility], [facility] [place], [place] [id number] [place] [address] Glucose [Mass/Vol] 277 mg/dL High 70 - 100 mg/dL [facility] Comment on above: Test performed by gl ucose meter. Results may be 10%-15% lower than serum/plasma values. (CLIA ID [id number]) Interpretation and review of laboratory results Abnormal [facility] Test Performed by [facility], [address] [place] [address] [facility] Glucose [Mass/Vol] 202 mg/dL High 70 - 100 mg/dL [facility] Comment on above: Test performed by gl ucose meter. Results may be 10%-15% lower than serum/plasma values. (CLIA ID [id number]) Interpretation and review of laboratory results Abnormal [facility] Test Performed by [facility], [facility] [place] [address] [facility] Glucose [Mass/Vol] 229 mg/dL High 70 - 100 mg/dL [facility] [place] Comment on above: Test performed by gl ucose meter. Results may be 10%-15% lower than serum/plasma values. (CLIA ID [id number]) Interpretation and review of laboratory results Abnormal [facility] Test Performed by [facility], [facility] [place] [address] [facility] Glucose [Mass/Vol] 188 mg/dL High 70 - 100 mg/dL [facility] [place] Comment on above: Test performed by gl ucose meter. Results may be 10%-15% lower than serum/plasma values. (CLIA ID [id number]) Interpretation and review of laboratory results Abnormal [facility] Test Performed by [facility], [address] [place] [address] [facility] [place] Phosphoruson 10-13-2019 Phosphate [Mass/Vol] 2.0 mg/dL Low 2.5-4.5 [facility] Comment on above: Performed By: #### H EMOG, MG3, BMP3 #### [facility] [address] [place] [address] Phosphate [Mass/Vol] 2.0 mg/dL Low 2.5 - 4 .5 mg/dL [place], [place] Phosphate [Mass/Vol] 2.6 mg/dL Normal 2.5-4.5 [facility] Comment on above: Result Comment: Slig htly hemolysed, interpret with caution. Performed By: #### H CANDELARIA CEDILLO, BMP3 #### [facility] [address] [place] [address] Phosphate [Mass/Vol] 2.6 mg/dL 2.5 - 4 .5 mg/dL [place], [place] Comment on above: Slightly hemolysed, interpret with caution. Prothrombin Timeon 0 INR Coag (PPP) [Relative time] 1.1 Normal 0.9-1.1 [facility] Comment on above: Result Comment: Mark mmended Anticoagulant Therapy: SEE BELOW ----- INR of 2.0 - 3.0 : - Prophylaxis of Venous Thrombosis (high-risk surgery) - Treatment of Venous Thrombosis - Treatment of Pulmonary Embolism (Includes tissue heart valves, Acute Myocardial Infarction to prevent systemic embolism, Valvular Heart Disease, and Atrial Fibrillation) ----- INR of 2.5 - 3.5 : - Mechanical Prosthetic Valves (high risk) - If oral anticoagulant therapy is used to prevent Myocardial Infarction Performed By: #### H CANDELARIA CEDILLO, BMP3 #### [place] [address] [place] [address] PT Coag (PPP) [Time] 11.4 s Normal 9.0-12.0 [facility] Comment on above: Result Comment: . Performed By: #### CANDELARIA HEDRICK, BMP3 #### [facility] [address] [place] [address] Protime-INRon 10-13-2019 INR Coag (PPP) [Relative time] 1.1 {INR} [place], [place] Comment on above: Recommended Anticoag ulant Therapy: SEE BELOW ----- INR of 2.0 - 3.0 : - Prophylaxis of Venous Thrombosis (high-risk surgery) - Treatment of Venous Thrombosis - Treatment of Pulmonary Embolism (Includes tissue heart valves, Acute Myocardial Infarction to prevent systemic embolism, Valvular Heart Disease, and Atrial Fibrillation) ----- INR of 2.5 - 3.5 : - Mechanical Prosthetic Valves (high risk) - If oral anticoagulant therapy is used to prevent Myocardial Infarction PT Coag (PPP) [Time] 11.4 s 9 - 12 s [place], [place] Comment on above: . Test Performed by [employer] [facility], [address] [place] [address] [place], [place] XR ABDOMEN (KUB) (SINGLE AP VIEW)on 10-13-2019 Ezio, [facility] Incoming Radiology Results From [facility] - 10/13/2019 3:10 AM EDT Patient Name: DORY BASURTO ---Diagnostic Radiology--- Exam Date/Time 10/13/2019 02:44:16 EDT Exam CR Abdomen AP Ordering Physician ALY [place] Accession Number [id number] CPT4 Codes 77821 () Reason For Exam NG placement Report ABDOMEN: CLINICAL INDICATION: NG tube placement. TECHNIQUE: Supine AP view of abdomen and pelvis. COMPARISON: None. FINDINGS: NG tube tip overlies the gastric body. Left upper abdominal radiopaque linear densities/foreign bodies are unchanged in position. Diffuse bilateral interstitial infiltrates are redemonstrated. The bowel gas pattern is unremarkable. No renal or ureteral calculi. There is no organomegaly. The osseous structures are normal. IMPRESSION: NG tube tip overlies gastric body. No acute abdominal process. Report Dictated on --- Final --- Dictated: 10/13/2019 3:07 am Dictating Physician: PARKER PATEL DO, I Signed Date and Time: 10/13/2019 3:09 am Signed by: PARKER PATEL DO, I Transcribed Date and Time: 10/13/2019 3:07 [place], [place] Patient Name: DORY BASURTO ---Diagnostic Radiology--- Exam Date/Time 10/13/2019 02:44:16 EDT Exam CR Abdomen AP Ordering Physician ALY [place] Accession Number [id number] CPT4 Codes 00213 () Reason For Exam NG placement Report ABDOMEN: CLINICAL INDICATION: NG tube placement. TECHNIQUE: Supine AP view of abdomen and pelvis. COMPARISON: None. FINDINGS: NG tube tip overlies the gastric body. Left upper abdominal radiopaque linear densities/foreign bodies are unchanged in position. Diffuse bilateral interstitial infiltrates are redemonstrated. The bowel gas pattern is unremarkable. No renal or ureteral calculi. There is no organomegaly. The osseous structures are normal. IMPRESSION: NG tube tip overlies gastric body. No acute abdominal process. Report Dictated on --- Final --- Dictated: 10/13/2019 3:07 am Dictating Physician: PARKER PATEL DO, I Signed Date and Time: 10/13/2019 3:09 am Signed by: PARKER PATEL DO, I Transcribed Date and Time: 10/13/2019 3:07 [place], [place] AFB Stainon 10-12-2019 Acid Fast Smear No acid-fast bacilli seen in smear. - Method: Fluorescent Stain [place], [place] Test Performed by [facility], [address] [place] [address] Specimen Source Comment:Body Fluid [place], [place] ANAon 10-12-2019 ANGELA TITER <1:80 <1:80 {titer} [place], [place] Comment on above: Tested by Indirect I mmunofluorescence Assay (IFA). ANCAon 10-12-2019 cANCA NOT DETECTED Normal Not-Detected [facility] Comment on above: Performed By: #### H EMOG, MG3, BMP3 #### [address] pANCA NOT DETECTED Normal Not-Detected [facility] Comment on above: Performed By: #### H EMOG, MG3, BMP3 #### [address] [address] Add On Lab Teston 10-12-2019 Sodium [Moles/Vol] Accepted [place], [place] Comment on above: Specimen available & acceptable for analysis. Add on test from HISon 10-11 Add on test from HIS Accepted Normal [facility] Comment on above: Result Comment: Spec imen available & acceptable for analysis. Performed By: #### H EMOG, MG3, BMP3 #### [address] Anti-Neutrophilic Cytoplasmi c Antibodyon 10-12-2019 C-ANCA NOT DETECTED Not-Detected [facility]titer} [facility] NOT DETECT[facility] Not-Detected {titer} [facility] Test Performed by [facility], [address] [facility] [place] [address] [facility] KERI Anti-Nuclear Antibodyon 09-22 ANGELA Titer < 1 : 80 Normal <1:80 [facility] Comment on above: Result Comment: Test ed by Indirect Immunofluorescence Assay (IFA). Performed By: #### H EMOPerla MG3, BMP3 #### [facility] [address] [place], [place] Basic Metabolic Panelon 09-22 Anion gap [Moles/Vol] 8 Normal [facility] Comment on above: Performed By: #### H EMOG, MG3, BMP3 #### [place] [address] [address] [place], [place] Calcium [Mass/Vol] 7.6 mg/dL Low 8.4-10.4 [facility] Comment on above: Performed By: #### H EMOG, MG3, BMP3 #### [place] [address] [address] [place], [place] CO2 [Moles/Vol] 26 mmol/L Normal 22-30 [facility] Comment on above: Performed By: #### H EMOG, MG3, BMP3 #### [facility] [address] [place], [place] Glucose [Mass/Vol] 238 mg/dL High 70-100 [facility] Comment on above: Performed By: #### H EMOG, MG3, BMP3 #### [place] [address] [address] [place] Urea nitrogen [Mass/Vol] 6 mg/dL Low 7-20 [facility] Comment on above: Performed By: #### H EMOG, MG3, BMP3 #### [place] [address] [address] [place], [place] Creatinine [Mass/Vol] 0.33 mg/dL Low 0.52-1.25 [facility] Comment on above: Performed By: #### H MG NGUYEN3, BMP3 #### [facility] [address] [place] [address] GFR/1.73 sq M predicted among blacks MDRD (S/P/Bld) [Vol rate/Area] mL/min/{1.73_m2} Normal >60 [facility] Comment on above: Performed By: #### H CANDELARIA CEDILLO, BMP3 #### [facility] [address] [place] [address] GFR/1.73 sq M predicted among non-blacks MDRD (S/P/Bld) [Vol rate/Area] mL/min/{1.73_m2} Normal >60 [facility] Comment on above: Result Comment: KDIG O guidelines provide the following GFR categories: Stage GFR(ml/min/1.73 m2) Terms G1 >=90 Normal or high G2 60-89 Mildly decreased* G3a 45-59 Mildly to moderately decreased G3b 30-44 Moderately to severely decreased G4 15-29 Severely decreased G5 <15 Kidney failure *Relative to young adult level. In the absence of evidence of kidney damage, neither GFR category G1 nor G2 fulfill the criteria for CKD. The CKD-EPI equation is validated in individuals 18 years of age and older. Currently the best equation for estimating glomerular filtration rate (GFR) from serum creatinine in children is the Bedside Oshea equation. It is less accurate in patients with extremes of muscle mass, restriction of dietary protein, ingestion of creatine, extra-renal metabolism of creatinine, or treatment with medications that affect renal tubular creatinine secretion. Performed By: #### H MG NGUYEN3, BMP3 #### [facility] [address] [place], [place] Chloride [Moles/Vol] 107 mmol/L Normal 98-107 [facility] Comment on above: Performed By: #### H CANDELARIA CEDILLO, BMP3 #### [address] Potassium [Moles/Vol] 3.5 mmol/L Normal 3.5-5.1 [facility] Comment on above: Performed By: #### H CANDELARIA CEDILLO BMP3 #### [facility] [address] [place] [address] Sodium [Moles/Vol] 141 mmol/L Normal 135-145 [facility] Comment on above: Performed By: #### H CANDELARIA CEDILLO BMP3 #### [facility] [address] [place] [address] Anion gap [Moles/Vol] 8 mmol/L [place], [place] Calcium [Mass/Vol] 7.6 mg/dL Low 8.4 - 10. 4 mg/dL [place], [place] Chloride [Moles/Vol] 107 mmol/L 98 - 10 7 mmol/L [place], [place] CO2 [Moles/Vol] 26 mmol/L 22 - 30 mmol/L [place], [place] Creatinine [Mass/Vol] 0.33 mg/dL Low 0.52 - 1.25 mg/dL [place], [place] EGFR IF NonAfrican [place]an >90.0 >60 mL/min [place], [place] Comment on above: KDIGO guidelines pro vide the following GFR categories: Stage GFR(ml/min/1.73 m2) Terms G1 >=90 Normal or high G2 60-89 Mildly decreased* G3a 45-59 Mildly to moderately decreased G3b 30-44 Moderately to severely decreased G4 15-29 Severely decreased G5 <15 Kidney failure *Relative to young adult level. In the absence of evidence of kidney damage, neither GFR category G1 nor G2 fulfill the criteria for CKD. The CKD-EPI equation is validated in individuals 18 years of age and older. Currently the best equation for estimating glomerular filtration rate (GFR) from serum creatinine in children is the Bedside Oshea equation. It is less accurate in patients with extremes of muscle mass, restriction of dietary protein, ingestion of creatine, extra-renal metabolism of creatinine, or treatment with medications that affect renal tubular creatinine secretion. GFR/1.73 sq M predicted among blacks MDRD (S/P/Bld) [Vol rate/Area] mL/min/{1.73_m2} >60 mL/min [place], [place] Glucose [Mass/Vol] 238 mg/dL High 70 - 100 mg/dL [place], [place] Potassium [Moles/Vol] 3.5 mmol/L 3.5 - 5.1 mmol/L [place], [place] Sodium [Moles/Vol] 141 mmol/L 135 - 145 mmol/L [place], [place] Urea nitrogen [Mass/Vol] 6 mg/dL Low 7 - 20 mg/dL [place], [place] Anion gap [Moles/Vol] 10 Normal [facility] Comment on above: Performed By: #### H NGUYEN MG3, BMP3 #### [place] [address] [place], [place] Calcium [Mass/Vol] 6.6 mg/dL Low 8.4-10.4 [facility] Comment on above: Performed By: #### Herman CEDILLO MG3, BMP3 #### [place] [address] [place], [place] CO2 [Moles/Vol] 21 mmol/L Low 22-30 [facility] Comment on above: Performed By: #### Herman CEDILLO MG3, BMP3 #### [place] [address] [address] [place] Glucose [Mass/Vol] 195 mg/dL High 70-100 [facility] Comment on above: Performed By: #### H NGUYEN MG3, BMP3 #### [place] [address] [place] Urea nitrogen [Mass/Vol] 5 mg/dL Low 7-20 [facility] Comment on above: Performed By: #### Herman CEDILLO MG3, BMP3 #### [place] [address] [place], [place] Creatinine [Mass/Vol] 0.24 mg/dL Low 0.52-1.25 [facility] Comment on above: Performed By: #### Herman CEDILLO MG3, BMP3 #### [place] [address] [place], [place] GFR/1.73 sq M predicted among blacks MDRD (S/P/Bld) [Vol rate/Area] mL/min/{1.73_m2} Normal >60 [facility] Comment on above: Performed By: #### H EMOG, MG3, BMP3 #### [facility] [address] [place], [place] GFR/1.73 sq M predicted among non-blacks MDRD (S/P/Bld) [Vol rate/Area] mL/min/{1.73_m2} Normal >60 [facility] Comment on above: Result Comment: KDIG O guidelines provide the following GFR categories: Stage GFR(ml/min/1.73 m2) Terms G1 >=90 Normal or high G2 60-89 Mildly decreased* G3a 45-59 Mildly to moderately decreased G3b 30-44 Moderately to severely decreased G4 15-29 Severely decreased G5 <15 Kidney failure *Relative to young adult level. In the absence of evidence of kidney damage, neither GFR category G1 nor G2 fulfill the criteria for CKD. The CKD-EPI equation is validated in individuals 18 years of age and older. Currently the best equation for estimating glomerular filtration rate (GFR) from serum creatinine in children is the Bedside Oshea equation. It is less accurate in patients with extremes of muscle mass, restriction of dietary protein, ingestion of creatine, extra-renal metabolism of creatinine, or treatment with medications that affect renal tubular creatinine secretion. Performed By: #### H EMOG, MG3, BMP3 #### [facility] [address] [place], [place] Potassium [Moles/Vol] 2.9 mmol/L Low 3.5-5.1 [facility] Comment on above: Performed By: #### H EMOG, MG3, BMP3 #### [facility] [address] [place], [place] Sodium [Moles/Vol] 144 mmol/L Normal 135-145 [facility] Comment on above: Performed By: #### H EMOG, MG3, BMP3 #### [facility] [address] [place], [place] Chloride [Moles/Vol] 113 mmol/L High 98-107 [facility] Comment on above: Performed By: #### H EMOG, MG3, BMP3 #### [facility] [address] [place], [place] Anion gap [Moles/Vol] 10 mmol/L [facility], [place] Calcium [Mass/Vol] 6.6 mg/dL Low 8.4 - 10. 4 mg/dL [place], [place] Chloride [Moles/Vol] 113 mmol/L High 98 - 10 7 mmol/L [place], [place] CO2 [Moles/Vol] 21 mmol/L Low 22 - 30 mmol/L [place], [place] Creatinine [Mass/Vol] 0.24 mg/dL Low 0.52 - 1.25 mg/dL [place], [place] EGFR IF NonAfrican [place]an >90.0 >60 mL/min [place], [place] Comment on above: KDIGO guidelines pro vide the following GFR categories: Stage GFR(ml/min/1.73 m2) Terms G1 >=90 Normal or high G2 60-89 Mildly decreased* G3a 45-59 Mildly to moderately decreased G3b 30-44 Moderately to severely decreased G4 15-29 Severely decreased G5 <15 Kidney failure *Relative to young adult level. In the absence of evidence of kidney damage, neither GFR category G1 nor G2 fulfill the criteria for CKD. The CKD-EPI equation is validated in individuals 18 years of age and older. Currently the best equation for estimating glomerular filtration rate (GFR) from serum creatinine in children is the Bedside Oshea equation. It is less accurate in patients with extremes of muscle mass, restriction of dietary protein, ingestion of creatine, extra-renal metabolism of creatinine, or treatment with medications that affect renal tubular creatinine secretion. GFR/1.73 sq M predicted among blacks MDRD (S/P/Bld) [Vol rate/Area] mL/min/{1.73_m2} >60 mL/min [place], [place] Glucose [Mass/Vol] 195 mg/dL High 70 - 100 mg/dL [place], [place] Interpretation and review of laboratory results Abnormal [place], [place] Potassium [Moles/Vol] 2.9 mmol/L Low 3.5 - 5.1 mmol/L [place], [place] Sodium [Moles/Vol] 144 mmol/L 135 - 145 mmol/L [place], [place] Urea nitrogen [Mass/Vol] 5 mg/dL Low 7 - 20 mg/dL [place] Test [facility] by [facility], [address] [place] [address] [place], [place] Calcium [Mass/Vol] 8.1 mg/dL Low 8.4-10.4 [facility] Comment on above: Performed By: #### H NGUYEN MG3, BMP3 #### [facility] [address] [place], [place] Anion gap [Moles/Vol] 14 Normal [facility] Comment on above: Performed By: #### H NGUYEN MG3, BMP3 #### [facility] [address] [place], [place] CO2 [Moles/Vol] 19 mmol/L Low 22-30 [facility] Comment on above: Performed By: #### H NGUYEN MG3, BMP3 #### [place] [address] [address] [place], [place] Creatinine [Mass/Vol] 0.37 mg/dL Low 0.52-1.25 [facility] Comment on above: Performed By: #### H NGUYEN MG3, BMP3 #### [place] [address] [address] [place] GFR/1.73 sq M predicted among blacks MDRD (S/P/Bld) [Vol rate/Area] mL/min/{1.73_m2} Normal >60 [facility] Comment on above: Performed By: #### H NGUYEN, MG3, BMP3 #### [place] [address] [address] [place] GFR/1.73 sq M predicted among non-blacks MDRD (S/P/Bld) [Vol rate/Area] mL/min/{1.73_m2} Normal >60 [facility] Comment on above: Result Comment: KDIG O guidelines provide the following GFR categories: Stage GFR(ml/min/1.73 m2) Terms G1 >=90 Normal or high G2 60-89 Mildly decreased* G3a 45-59 Mildly to moderately decreased G3b 30-44 Moderately to severely decreased G4 15-29 Severely decreased G5 <15 Kidney failure *Relative to young adult level. In the absence of evidence of kidney damage, neither GFR category G1 nor G2 fulfill the criteria for CKD. The CKD-EPI equation is validated in individuals 18 years of age and older. Currently the best equation for estimating glomerular filtration rate (GFR) from serum creatinine in children is the Bedside Oshea equation. It is less accurate in patients with extremes of muscle mass, restriction of dietary protein, ingestion of creatine, extra-renal metabolism of creatinine, or treatment with medications that affect renal tubular creatinine secretion. Performed By: #### H NGUYEN MG3, BMP3 #### [facility] [address] [place], [place] Glucose [Mass/Vol] 201 mg/dL High 70-100 [facility] Comment on above: Performed By: #### H NGUYEN MG3, BMP3 #### [facility] [address] [place], [place] Urea nitrogen [Mass/Vol] 6 mg/dL Low 7-20 [facility] Comment on above: Performed By: #### H NGUYEN MG3, BMP3 #### [facility] [address] [place], [place] Potassium [Moles/Vol] 3.4 mmol/L Low 3.5-5.1 [facility] Comment on above: Performed By: #### H NGUYEN MG3, BMP3 #### [facility] [address] [place], [place] Sodium [Moles/Vol] 143 mmol/L Normal 135-145 [facility] Comment on above: Performed By: #### H NGUYEN MG3, BMP3 #### [facility] [address] [place], [place] Chloride [Moles/Vol] 110 mmol/L High 98-107 [facility] Comment on above: Performed By: #### H NGUYEN MG3, BMP3 #### [facility] [address] [place], [place] Anion gap [Moles/Vol] 14 mmol/L [facility], [place] Calcium [Mass/Vol] 8.1 mg/dL Low 8.4 - 10. 4 mg/dL [facility], [place] Chloride [Moles/Vol] 110 mmol/L High 98 - 10 7 mmol/L [facility], [place] CO2 [Moles/Vol] 19 mmol/L Low 22 - 30 mmol/L [place], [place] Creatinine [Mass/Vol] 0.37 mg/dL Low 0.52 - 1.25 mg/dL [place], [place] EGFR IF NonAfrican [place]an >90.0 >60 mL/min [place] Comment on above: KDIGO guidelines pro vide the following GFR categories: Stage GFR(ml/min/1.73 m2) Terms G1 >=90 Normal or high G2 60-89 Mildly decreased* G3a 45-59 Mildly to moderately decreased G3b 30-44 Moderately to severely decreased G4 15-29 Severely decreased G5 <15 Kidney failure *Relative to young adult level. In the absence of evidence of kidney damage, neither GFR category G1 nor G2 fulfill the criteria for CKD. The CKD-EPI equation is validated in individuals 18 years of age and older. Currently the best equation for estimating glomerular filtration rate (GFR) from serum creatinine in children is the Bedside Oshea equation. It is less accurate in patients with extremes of muscle mass, restriction of dietary protein, ingestion of creatine, extra-renal metabolism of creatinine, or treatment with medications that affect renal tubular creatinine secretion. GFR/1.73 sq M predicted among blacks MDRD (S/P/Bld) [Vol rate/Area] mL/min/{1.73_m2} >60 mL/min [place] Glucose [Mass/Vol] 201 mg/dL High 70 - 100 mg/dL [place], [place] Potassium [Moles/Vol] 3.4 mmol/L Low 3.5 - 5.1 mmol/L [place], [place] Sodium [Moles/Vol] 143 mmol/L 135 - 145 mmol/L [place] Urea nitrogen [Mass/Vol] 6 mg/dL Low 7 - 20 mg/dL [place], [place] CBCon 10-12-2019 Erythrocyte distribution width (RBC) [Ratio] 19.8 % High 11.5 - 14.5 % [place] Hematocrit (Bld) [Volume fraction] 30.4 % Low 35 - 47 % [place] Hemoglobin (Bld) [Mass/Vol] 9.9 g/dL Low 11.7 - 16 g/dL [place], [place] Interpretation and review of laboratory results Abnormal [place] MCH (RBC) [Entitic mass] 27.7 pg 26 - 34 pg [place] MCHC (RBC) [Mass/Vol] 32.6 % 32 - 36 % [place], [place] MCV (RBC) [Entitic vol] 84.9 fL 79 - 98 fL [place], [place] Platelet mean volume (Bld) [Entitic vol] 8.6 fL 7.4 - 10.4 fL [place], [place] Platelets (Bld) [#/Vol] 400 10*3/uL 140 - 440 10*3/uL [place] RBC (Bld) [#/Vol] 3.57 10*6/uL Low 3.8 - 5.2 10*6/uL [place] WBC (Bld) [#/Vol] 28.4 10*3/uL High 3.6 - 10.7 10*3/uL [place] Test Performed by [facility], [address] [place] [id number] [place] [address] CR Abdomen APon 10-12-2019 CR Abdomen AP Patient Name: DORY BASURTO Diagnostic Radiology Exam Date/Time 10/12/2019 06:29:28 EDT Exam CR Abdomen AP Ordering Physician [id number] LANG Accession Number [id number] CPT4 Codes 45740 () Reason For Exam NG placement Report ABDOMEN: CLINICAL INDICATION: NG tube placement. TECHNIQUE: Supine AP view of abdomen and pelvis. COMPARISON: None. FINDINGS: Bilateral lower lobe interstitial opacities. Linear radiopaque densities overlie the left upper abdomen uncertain significance. NG tube tip overlies gastric body. The bowel gas pattern is unremarkable. No renal or ureteral calculi. There is no organomegaly. The osseous structures are normal. IMPRESSION: NG tube tip overlies gastric body. No acute abdominal process. Report Dictated on Final Dictated: 10/12/2019 6:31 am Dictating Physician: PARKER PATEL DO, I Signed Date and Time: 10/12/2019 6:32 am Signed by: PARKER PATEL DO, I Transcribed Date and Time: 10/12/2019 6:31 Normal [facility] CR Chest Portableon 10-12-19 20 CR Chest Portable Patient Name: DORY BASURTO Diagnostic Radiology Exam Date/Time 10/12/2019 06:27:54 EDT Exam CR Chest Portable Ordering Physician MILES POMPA Accession Number [id number] CPT4 Codes 45569 () Reason For Exam Follow up infiltrates Report PORTABLE CHEST CLINICAL INDICATION: Follow-up pulmonary infiltrates COMPARISON: 10/10/2019. TECHNIQUE: A single frontal view of thorax was obtained and reviewed. IMPRESSION: 1. Lines/ tubes/ devices: NG tube tip overlies gastric body. 2. Lungs and Pleura: There are diffuse reticular nodular infiltrates, unchanged from prior exam. Small bilateral pleural effusions are resolved. 3. Heart and mediastinum: Normal cardiomediastinal margin. 4. Bones: Thoracic degenerative spondylosis. Report Dictated on Final Dictated: 10/12/2019 6:32 am Dictating Physician: PARKER PATEL DO, I Signed Date and Time: 10/12/2019 6:33 am Signed by: PARKER PATEL DO, I Transcribed Date and Time: 10/12/2019 6:32 Normal [facility] Calcium, Ionizedon 0 Ionized Ca 4.30 mg/dL 4.3 - 5.2 mg/dL [place], [place] pH (Bld) 7.36 [pH] [place] Test Performed by [address] [address] [place], [place] Calcium,Ionizedon 10-12-2019 Ionized Ca,Measured 4.30 mg/dL Normal 4.30-5.20 [facility] Comment on above: Performed By: #### H MG NGUYEN3, BMP3 #### [address] [address] pH, Ionized Calcium 7.36 Normal 7.31-7.46 [facility] Comment on above: Performed By: #### H NGUYEN MG3, BMP3 #### [address] [place] [address] Clostridium difficile PCRon 10-12-2019 Clostridium difficile PCR Clostridium difficile by PCR --> Status: F NEGATIVE Methodology - Real Time PCR (Cepheid) Clinical judgement must be used when interpreting results. Positive results may reflect colonization. Indeterminate results suggest a new specimen be submitted. Methodology - Real Time PCR (Cepheid) Clinical judgement must be used when interpreting results. Positive results may reflect colonization. Indeterminate results suggest a new specimen be submitted. Normal [facility] Comment on above: Order Comment: Speci men Source Comment:Stool Performed By: #### H EMOG, MG3, BMP3 #### [facility] [address] [place] [address] Cytology, non gyneon 020 Cytology report Cyto stain.thin prep Doc (Cvx/Vag) SEE BELOW Abnormal [facility], [place] Interpretation and review of laboratory results Abnormal [place], [place] [address] DEPARTMENT OF PATHOLOGY AND [facility] LABORATORY MEDICINE [address] [place] [id number] FINAL MEDICAL CYTOLOGY REPORT NAME: DORY BASURTO : 1955 64 Y F BILLING NO.: [id number] LOCATION: 1T3I T3 INPAT T301 PROCEDURE 10/10/2019 DATE: PHYSICIAN: NADIR MESSER MD RECEIVED DATE: 10/11/2019 ATTENDING: YEHUDA MACKENZIE MD REPORT DATE: 10/12/2019 COPIES TO: MARY MARLEY MD; GAEL NUNEZ MD; CECE ROME MD CLINICAL DATA: DIAGNOSIS NO MALIGNANT CELLS IDENTIFIED. FINDINGS CONSISTENT WITH ACUTE INFLAMMATORY PROCESS. SPECIMEN: PLEURAL FLUID, LEFT PROCEDURE(S): FLUID COLLECTION GROSS DESCRIPTION: 800 ml, yellow fluid, w/o cytolyt Materials Prepared & Examined: Cell Blocks . . . . . . . . . . . . 1 Monolayers . . . . . . . . . . . . 1 MRC Screened by JOSE CAMP M.D. The following statement applies to all immunohistochemistry, in situ hybridization, molecular studies, and immunofluorescence testing. The use of one or more reagents in the above tests is regulated as an analyte specific reagent (ASR). These tests were developed and their performance characteristics determined by the clinical laboratories of [facility]. They have not been cleared by the US Food and Drug Administration (FDA). The FDA has determined that such clearance or approval is not necessary. All the above immunostains were performed on paraffin embedded tissue. Appropriate positive and negative controls (where applicable) were run in parallel with the patient's specimen; these controls showed expected staining pattern, with acceptable intensity of staining. Immunohistochemical assays have not been validated on decalcified tissues. Results should be interpreted with caution given the raised possibility of false negativity on decalcified specimens. Case reviewed at [address] [address]. DEPARTMENT OF PATHOLOGY AND LABORATORY MEDICINE [place], [place] [address] [place], [place] Fungal stainon 10-12-2019 Fungus Stain No fungal elements seen. - Method: Direct Exam by Calcofluor Stain [place], [place] Test Performed by [facility], [address] [place] [address] Specimen Source Comment:Other [place], [place] GASTROINTESTINAL PCR PANELon 10-12-2019 GASTROINTESTINAL PCR PANEL GASTROINTESTINAL PCR PANEL --> Status: F NEGATIVE: No targets were detected by the [employer] Gastrointestinal PCR Panel. _ The [employer] Gastrointestinal PCR Panel can detect the following targets: Campylobacter, Plesiomonas shigelloides, Salmonella, Vibrio species, Vibrio cholerae, Yersinia enterocolitica, Shiga toxin-producing E coli (STEC) including E coli O157, Enterotoxigenic E coli (ETEC), Shigella/Enteroinvasiv e E coli (EIEC), Cryptosporidium, Cyclospora cayetanensis, Entamoeba histolytica, Giardia lamblia, Adenovirus F 40/41, Astrovirus, Norovirus GI/GII, Rotavirus A, Sapovirus Gastrointestinal PCR Panel. _ The [employer] Gastrointestinal PCR Panel can detect the following targets: Campylobacter, Plesiomonas shigelloides, Salmonella, Vibrio species, Vibrio cholerae, Yersinia enterocolitica, Shiga toxin-producing E coli (STEC) including E coli O157, Enterotoxigenic E coli (ETEC), Shigella/Enteroinvasiv e E coli (EIEC), Cryptosporidium, Cyclospora cayetanensis, Entamoeba histolytica, Giardia lamblia, Adenovirus F 40/41, Astrovirus, Norovirus GI/GII, Rotavirus A, Sapovirus [facility] Comment on above: Order Comment: Speci men Source Comment:Stool Performed By: #### H MG NGUYEN3, BMP3 #### [facility] [address] [address] Gastrointestinal Panel by BRODY [facility] 10-12-2019 Gastrointestinal PCR Panel NEGATIVE: No targets were detected by the [employer] Gastrointestinal PCR Panel. _ The [employer] Gastrointestinal PCR Panel can detect the following targets: Campylobacter, Plesiomonas shigelloides, Salmonella, Vibrio species, Vibrio cholerae, Yersinia enterocolitica, Shiga toxin-producing E coli (STEC) including E coli O157, Enterotoxigenic E coli (ETEC), Shigella/Enteroinvasiv e E coli (EIEC), Cryptosporidium, Cyclospora cayetanensis, Entamoeba histolytica, Giardia lamblia, Adenovirus F 40/41, Astrovirus, Norovirus GI/GII, Rotavirus A, Sapovirus [place], [place] Test Performed by [facility], [address] [place] [id number] Specimen Source Comment:Stool [place], [place] Glucose,Bedsideon 10-12-2019 Glucose [Mass/Vol] 230 mg/dL High 70-100 [facility] Comment on above: Result Comment: Test performed by glucose meter. Results may be 10%-15% lower than serum/plasma values. (CLIA ID [id number]) Performed By: #### H NGUYEN MG3, BMP3 #### [employer] [address] [place], [place] Glucose [Mass/Vol] 237 mg/dL High 70-100 [facility] Comment on above: Result Comment: Test performed by glucose meter. Results may be 10%-15% lower than serum/plasma values. (CLIA ID [id number]) Performed By: #### H EMOG, MG3, BMP3 #### [facility] [address] [place], [place] Glucose [Mass/Vol] 234 mg/dL High 70-100 [facility] Comment on above: Result Comment: Test performed by glucose meter. Results may be 10%-15% lower than serum/plasma values. (CLIA ID [id number]) Performed By: #### H NGUYEN MG3, BMP3 #### [facility] [address] [place], [place] Hemogramon 10-12-2019 Erythrocyte distribution width (RBC) [Ratio] 19.8 % High 11.5-14.5 [facility] Comment on above: Performed By: #### H EMOPerla, MG3, BMP3 #### [facility] [address] [place], [place] Hematocrit (Bld) [Volume fraction] 30.4 % Low 35.0-47.0 [facility] Comment on above: Performed By: #### H EMOG, MG3, BMP3 #### [facility] [address] [place], [place] Hemoglobin (Bld) [Mass/Vol] 9.9 g/dL Low 11.7-16.0 [facility] Comment on above: Performed By: #### H EMOG, MG3, BMP3 #### [facility] [address] [place], [place] MCH (RBC) [Entitic mass] 27.7 pg Normal 26.0-34.0 [facility] Comment on above: Performed By: #### H EMOG, MG3, BMP3 #### [facility] [address] [place], [place] MCHC (RBC) [Mass/Vol] 32.6 % Normal 32.0-36.0 [facility] Comment on above: Performed By: #### H EMOPerla MG3, BMP3 #### [place] [address] [address] [place], [place] MCV (RBC) [Entitic vol] 84.9 fL Normal 79.0-98.0 [facility] Comment on above: Performed By: #### H EMOPerla MG3, BMP3 #### [place] [address] [place], [place] Platelet mean volume (Bld) [Entitic vol] 8.6 fL Normal 7.4-10.4 [facility] Comment on above: Performed By: #### H NGUYEN MG3, BMP3 #### [address] Platelets (Bld) [#/Vol] 400 10*3/uL Normal 140-440 [facility] Comment on above: Performed By: #### Herman CEDILLO MG3, BMP3 #### [address] RBC (Bld) [#/Vol] 3.57 10*6/uL Low 3.80-5.20 [facility] Comment on above: Performed By: #### H EMOPerla MG3, BMP3 #### [address] WBC (Bld) [#/Vol] 28.4 10*3/uL High 3.6-10.7 [facility] Comment on above: Performed By: #### H EMOG, MG3, BMP3 #### [address] Hepatic Functionon 0 ALT [Catalytic activity/Vol] 20 U/L Normal 0-34 [facility] Comment on above: Result Comment: The ALT test is performed by an updated assay method. Please note that the reference intervals have been changed and are now sex specific. Performed By: #### H EMOG, MG3, BMP3 #### [place] [address] [address] [place], [place] ALP [Catalytic activity/Vol] 129 U/L High 38-126 [facility] Comment on above: Performed By: #### H NGUYEN MG3, BMP3 #### [place] [address] [address] [place], [place] AST [Catalytic activity/Vol] 37 U/L Normal 15-46 [facility] Comment on above: Performed By: #### H NGUYEN MG3, BMP3 #### [place] [address] [address] [place], [place] Bilirubin [Mass/Vol] 0.7 mg/dL Normal 0.2-1.3 [facility] Comment on above: Performed By: #### H NGUYEN MG3, BMP3 #### [place] [address] [address] [place], [place] Bilirubin.direct [Mass/Vol] 0.0 mg/dL Normal 0.0-0.3 [facility] Comment on above: Performed By: #### H NGUYEN MG3, BMP3 #### [place] [address] [address] [place], [place] Protein [Mass/Vol] 5.3 g/dL Low 6.3-8.2 [facility] Comment on above: Performed By: #### H NGUYEN MG3, BMP3 #### [place] [address] [address] [place], [place] Albumin [Mass/Vol] 2.5 g/dL Low 3.5-5.0 [facility] Comment on above: Performed By: #### H NGUYEN MG3, BMP3 #### [place] [address] [address] [place], [place] Hepatic Function Panelon Albumin [Mass/Vol] 2.5 g/dL Low 3.5 - 5 g/dL [place], [place] ALP [Catalytic activity/Vol] 129 U/L High 38 - 126 U/L [place], [place] ALT [Catalytic activity/Vol] 20 U/L 0 - 34 U/L [place] Comment on above: The ALT test is perf ormed by an updated assay method. Please note that the reference intervals have been changed and are now sex specific. AST [Catalytic activity/Vol] 37 U/L 15 - 46 U/L [place] Bilirubin Ql (U) 0.7 mg/dL 0.2 - 1.3 mg/dL [place] Bilirubin.direct [Mass/Vol] 0.0 mg/dL 0 - 0.3 mg/dL [place], [place] Protein [Mass/Vol] 5.3 g/dL Low 6.3 - 8.2 g/dL [place], [place] Magnesiumon 10-12-2019 Magnesium [Mass/Vol] 2.6 mg/dL High 1.6-2.3 [facility] Comment on above: Performed By: #### H NGUYEN MG3, BMP3 #### [address] [address] Magnesium [Mass/Vol] 2.6 mg/dL High 1.6 - 2 .3 mg/dL [place] Magnesium [Mass/Vol] 1.4 mg/dL Low 1.6-2.3 [facility] Comment on above: Performed By: #### H NGUYEN MG3, BMP3 #### [address] [address] Magnesium [Mass/Vol] 1.4 mg/dL Low 1.6 - 2 .3 mg/dL [place], [place] Magnesium [Mass/Vol] 1.8 mg/dL Normal 1.6-2.3 [facility] Comment on above: Performed By: #### H NGUYEN MG3, BMP3 #### [address] [address] Magnesium [Mass/Vol] 1.8 mg/dL 1.6 - 2 .3 mg/dL [place], [place] Otheron 10-12-2019 Interpretation and review of laboratory results Abnormal [place] Test Performed by [id number] [place] [address] Interpretation and review of laboratory results Abnormal [place] Test Performed by [address] [address] [facility] [place], [place] Test Performed by [facility], [facility] [place] [address] [facility] Interpretation and review of laboratory results Abnormal [facility] Test Performed by [facility], [facility] [address], [place] [address] [facility] [place], [place] POCT Glucoseon 10-12-2019 Glucose [Mass/Vol] 230 mg/dL High 70 - 100 mg/dL [facility] Comment on above: Test performed by gl ucose meter. Results may be 10%-15% lower than serum/plasma values. (CLIA ID [id number]) Interpretation and review of laboratory results Abnormal [facility] [place] Test Performed by [facility], [facility] [place] [address] [facility], [place] Glucose [Mass/Vol] 237 mg/dL High 70 - 100 mg/dL [facility] Comment on above: Test performed by gl ucose meter. Results may be 10%-15% lower than serum/plasma values. (CLIA ID [id number]) Interpretation and review of laboratory results Abnormal [facility]- [place] Test Performed by [facility], [facility] [place] [address] [facility] Glucose [Mass/Vol] 234 mg/dL High 70 - 100 mg/dL [place], [place] Comment on above: Test performed by gl ucose meter. Results may be 10%-15% lower than serum/plasma values. (CLIA ID [id number]) Interpretation and review of laboratory results Abnormal [facility] Test Performed by [facility], [facility] [place] [address] [facility] [place], [place] Phosphoruson 10-12-2019 Phosphate [Mass/Vol] 3.2 mg/dL Normal 2.5-4.5 [facility] Comment on above: Performed By: #### H EMOG, MG3, BMP3 #### [facility] [address] [place] [address] Phosphate [Mass/Vol] 3.2 mg/dL 2.5 - 4 .5 mg/dL [facility], [place] Phosphate [Mass/Vol] 2.2 mg/dL Low 2.5-4.5 [facility] Comment on above: Performed By: #### H CANDELARIA CEDILLO, BMP3 #### [facility] [address] [place] [address] Phosphate [Mass/Vol] 2.2 mg/dL Low 2.5 - 4 .5 mg/dL [place] Phosphate [Mass/Vol] 1.7 mg/dL Low 2.5-4.5 [facility] Comment on above: Performed By: #### H MG NGUYEN3, BMP3 #### [facility] [address] [place] [address] Phosphate [Mass/Vol] 1.7 mg/dL Low 2.5 - 4 .5 mg/dL [place] Prothrombin Timeon 0 INR Coag (PPP) [Relative time] 1.2 High 0.9-1.1 [facility] Comment on above: Result Comment: Mark mmended Anticoagulant Therapy: SEE BELOW ----- INR of 2.0 - 3.0 : - Prophylaxis of Venous Thrombosis (high-risk surgery) - Treatment of Venous Thrombosis - Treatment of Pulmonary Embolism (Includes tissue heart valves, Acute Myocardial Infarction to prevent systemic embolism, Valvular Heart Disease, and Atrial Fibrillation) ----- INR of 2.5 - 3.5 : - Mechanical Prosthetic Valves (high risk) - If oral anticoagulant therapy is used to prevent Myocardial Infarction Performed By: #### H CANDELARIA CEDILLO, BMP3 #### [facility] [address] [place] [address] PT Coag (PPP) [Time] 12.4 s High 9.0-12.0 [facility] Comment on above: Result Comment: . Performed By: #### H CANDELARIA CEDILLO, BMP3 #### [facility] [address] [place] [address] Protime-INRon 10-12-2019 INR Coag (PPP) [Relative time] 1.2 {INR} High [place], [place] Comment on above: Recommended Anticoag ulant Therapy: SEE BELOW ----- INR of 2.0 - 3.0 : - Prophylaxis of Venous Thrombosis (high-risk surgery) - Treatment of Venous Thrombosis - Treatment of Pulmonary Embolism (Includes tissue heart valves, Acute Myocardial Infarction to prevent systemic embolism, Valvular Heart Disease, and Atrial Fibrillation) ----- INR of 2.5 - 3.5 : - Mechanical Prosthetic Valves (high risk) - If oral anticoagulant therapy is used to prevent Myocardial Infarction Interpretation and review of laboratory results Abnormal [place], [place] PT Coag (PPP) [Time] 12.4 s High 9 - 12 s [place], [place] Comment on above: . Test Performed by [facility], [address] [place] [id number] [place] [address] STAIN ACID-FASTon 10-12-2019 STAIN ACID-FAST STAIN ACID-FAST --> Status: F No acid-fast bacilli seen in smear. - Method: Fluorescent Stain - Method: Fluorescent Stain Normal [facility] Comment on above: Order Comment: Speci men Source Comment:Body Fluid Performed By: #### H EMOG, MG3, BMP3 #### [facility] [employer] [address] [address] STAIN FUNGUSon 10-12-2019 STAIN FUNGUS STAIN FUNGUS --> Status: F No fungal elements seen. - Method: Direct Exam by Calcofluor Stain - Method: Direct Exam by Calcofluor Stain Normal [facility] Comment on above: Order Comment: Speci men Source Comment:Other Performed By: #### H EMOG, MG3, BMP3 #### [facility] [employer] [address] [address] XR ABDOMEN (KUB) (SINGLE AP VIEW)on 10-12-2019 Ezio, [facility] Incoming Radiology Results From [facility] - 10/12/2019 6:33 AM EDT Patient Name: DORY BASURTO ---Diagnostic Radiology--- Exam Date/Time 10/12/2019 06:29:28 EDT Exam CR Abdomen AP Ordering Physician [id number] ALY DIAZ Accession Number [id number] CPT4 Codes 66858 () Reason For Exam NG placement Report ABDOMEN: CLINICAL INDICATION: NG tube placement. TECHNIQUE: Supine AP view of abdomen and pelvis. COMPARISON: None. FINDINGS: Bilateral lower lobe interstitial opacities. Linear radiopaque densities overlie the left upper abdomen uncertain significance. NG tube tip overlies gastric body. The bowel gas pattern is unremarkable. No renal or ureteral calculi. There is no organomegaly. The osseous structures are normal. IMPRESSION: NG tube tip overlies gastric body. No acute abdominal process. Report Dictated on --- Final --- Dictated: 10/12/2019 6:31 am Dictating Physician: PARKER PATEL DO, I Signed Date and Time: 10/12/2019 6:32 am Signed by: PARKER PATEL DO, I Transcribed Date and Time: 10/12/2019 6:31 [place], [place] Patient Name: DORY BASURTO ---Diagnostic Radiology--- Exam Date/Time 10/12/2019 06:29:28 EDT Exam CR Abdomen AP Ordering Physician [place]Y [place] Accession Number [id number] CPT4 Codes 56970 () Reason For Exam NG placement Report ABDOMEN: CLINICAL INDICATION: NG tube placement. TECHNIQUE: Supine AP view of abdomen and pelvis. COMPARISON: None. FINDINGS: Bilateral lower lobe interstitial opacities. Linear radiopaque densities overlie the left upper abdomen uncertain significance. NG tube tip overlies gastric body. The bowel gas pattern is unremarkable. No renal or ureteral calculi. There is no organomegaly. The osseous structures are normal. IMPRESSION: NG tube tip overlies gastric body. No acute abdominal process. Report Dictated on --- Final --- Dictated: 10/12/2019 6:31 am Dictating Physician: PARKER PATEL DO, I Signed Date and Time: 10/12/2019 6:32 am Signed by: PARKER PATEL DO, I Transcribed Date and Time: 10/12/2019 6:31 [place], [place] XR CHEST PORTABLEon 10-12-19 Patient Name: DORY BASURTO ---Diagnostic Radiology--- Exam Date/Time 10/12/2019 06:27:54 EDT Exam CR Chest Portable Ordering Physician MILES POMPA Accession Number [id number] CPT4 Codes 30971 () Reason For Exam Follow up infiltrates Report PORTABLE CHEST CLINICAL INDICATION: Follow-up pulmonary infiltrates COMPARISON: 10/10/2019. TECHNIQUE: A single frontal view of thorax was obtained and reviewed. IMPRESSION: 1. Lines/ tubes/ devices: NG tube tip overlies gastric body. 2. Lungs and Pleura: There are diffuse reticular nodular infiltrates, unchanged from prior exam. Small bilateral pleural effusions are resolved. 3. Heart and mediastinum: Normal cardiomediastinal margin. 4. Bones: Thoracic degenerative spondylosis. Report Dictated on --- Final --- Dictated: 10/12/2019 6:32 am Dictating Physician: PARKER PATEL DO, I Signed Date and Time: 10/12/2019 6:33 am Signed by: PARKER PATEL DO, I Transcribed Date and Time: 10/12/2019 6:32 [facility] [place] [facility], [facility] Incoming Radiology Results From [facility] - 10/12/2019 6:34 AM EDT Patient Name: DORY BASURTO ---Diagnostic Radiology--- Exam Date/Time 10/12/2019 06:27:54 EDT Exam CR Chest Portable Ordering Physician MILES POMPA Accession Number [id number] CPT4 Codes 78973 () Reason For Exam Follow up infiltrates Report PORTABLE CHEST CLINICAL INDICATION: Follow-up pulmonary infiltrates COMPARISON: 10/10/2019. TECHNIQUE: A single frontal view of thorax was obtained and reviewed. IMPRESSION: 1. Lines/ tubes/ devices: NG tube tip overlies gastric body. 2. Lungs and Pleura: There are diffuse reticular nodular infiltrates, unchanged from prior exam. Small bilateral pleural effusions are resolved. 3. Heart and mediastinum: Normal cardiomediastinal margin. 4. Bones: Thoracic degenerative spondylosis. Report Dictated on --- Final --- Dictated: 10/12/2019 6:32 am Dictating Physician: PARKER PATEL DO, I Signed Date and Time: 10/12/2019 6:33 am Signed by: PARKER PATEL DO, I Transcribed Date and Time: 10/12/2019 6:32 [facility] [place] Add On Lab Teston 10-11-2019 Sodium [Moles/Vol] Accepted [place], [place] Comment on above: Specimen available & acceptable for analysis. Test Performed by [facility], [facility] [place] [address] [facility] Sodium [Moles/Vol] Accepted [facility] Comment on above: Specimen available & acceptable for analysis. Test Performed by [facility], [facility] [place] [address] [facility], [place] Add on test from HISon 10-10 Add on test from HIS Accepted Normal [facility] Comment on above: Result Comment: Spec imen available & acceptable for analysis. Performed By: #### H EMOPerla MG3, BMP3 #### [place] [address] [address] [place], [place] Add on test from HIS Accepted Normal [facility] Comment on above: Result Comment: Spec imen available & acceptable for analysis. Performed By: #### H EMOPerla MG3, BMP3 #### [place] [address] [address] [place], [place] Basic Metabolic Panelon 09-22 Calcium [Mass/Vol] 7.7 mg/dL Low 8.4-10.4 [facility] Comment on above: Performed By: #### H EMOPerla MG3, BMP3 #### [place] [address] [place], [place] Glucose [Mass/Vol] 119 mg/dL High 70-100 [facility] Comment on above: Performed By: #### H EMOG MG3, BMP3 #### [place] [address] [address] [place], [place] Urea nitrogen [Mass/Vol] 3 mg/dL Low 7-20 [facility] Comment on above: Performed By: #### H EMOG MG3, BMP3 #### [place] [address] [address] [place], [place] Anion gap [Moles/Vol] 13 Normal [facility] Comment on above: Performed By: #### H EMOG, MG3, BMP3 #### [place] [address] [address] [place] CO2 [Moles/Vol] 19 mmol/L Low 22-30 [facility] Comment on above: Performed By: #### H NGUYEN MG3, BMP3 #### [facility] [address] [place], [place] Creatinine [Mass/Vol] 0.29 mg/dL Low 0.52-1.25 [facility] Comment on above: Performed By: #### H NGUYEN MG3, BMP3 #### [place] [address] [place], [place] GFR/1.73 sq M predicted among blacks MDRD (S/P/Bld) [Vol rate/Area] mL/min/{1.73_m2} Normal >60 [facility] Comment on above: Performed By: #### H NGUYEN MG3, BMP3 #### [place] [address] [place], [place] GFR/1.73 sq M predicted among non-blacks MDRD (S/P/Bld) [Vol rate/Area] mL/min/{1.73_m2} Normal >60 [facility] Comment on above: Result Comment: KDIG O guidelines provide the following GFR categories: Stage GFR(ml/min/1.73 m2) Terms G1 >=90 Normal or high G2 60-89 Mildly decreased* G3a 45-59 Mildly to moderately decreased G3b 30-44 Moderately to severely decreased G4 15-29 Severely decreased G5 <15 Kidney failure *Relative to young adult level. In the absence of evidence of kidney damage, neither GFR category G1 nor G2 fulfill the criteria for CKD. The CKD-EPI equation is validated in individuals 18 years of age and older. Currently the best equation for estimating glomerular filtration rate (GFR) from serum creatinine in children is the Bedside Oshea equation. It is less accurate in patients with extremes of muscle mass, restriction of dietary protein, ingestion of creatine, extra-renal metabolism of creatinine, or treatment with medications that affect renal tubular creatinine secretion. Performed By: #### H NGUYEN MG3, BMP3 #### [place] [address] [place], [place] Potassium [Moles/Vol] 3.9 mmol/L Normal 3.5-5.1 [facility] Comment on above: Result Comment: Slig htly hemolysed, interpret with caution. Performed By: #### H NGUYEN MG3, BMP3 #### [facility] [address] [place], [place] Chloride [Moles/Vol] 108 mmol/L High 98-107 [facility] Comment on above: Performed By: #### H NGUYEN MG3, BMP3 #### [facility] [address] [place] Sodium [Moles/Vol] 141 mmol/L Normal 135-145 [facility] Comment on above: Performed By: #### H NGUYEN MG3, BMP3 #### [facility] [address] [place], [place] Basic Metabolic Panel w/ Ref segundo to MGon 10-11-2019 Anion gap [Moles/Vol] 13 mmol/L [place], [place] Calcium [Mass/Vol] 7.7 mg/dL Low 8.4 - 10. 4 mg/dL [place], [place] Chloride [Moles/Vol] 108 mmol/L High 98 - 10 7 mmol/L [place] CO2 [Moles/Vol] 19 mmol/L Low 22 - 30 mmol/L [place] Creatinine [Mass/Vol] 0.29 mg/dL Low 0.52 - 1.25 mg/dL [place], [place] EGFR IF NonAfrican [place]an >90.0 >60 mL/min [place], [place] Comment on above: KDIGO guidelines pro vide the following GFR categories: Stage GFR(ml/min/1.73 m2) Terms G1 >=90 Normal or high G2 60-89 Mildly decreased* G3a 45-59 Mildly to moderately decreased G3b 30-44 Moderately to severely decreased G4 15-29 Severely decreased G5 <15 Kidney failure *Relative to young adult level. In the absence of evidence of kidney damage, neither GFR category G1 nor G2 fulfill the criteria for CKD. The CKD-EPI equation is validated in individuals 18 years of age and older. Currently the best equation for estimating glomerular filtration rate (GFR) from serum creatinine in children is the Bedside Oshea equation. It is less accurate in patients with extremes of muscle mass, restriction of dietary protein, ingestion of creatine, extra-renal metabolism of creatinine, or treatment with medications that affect renal tubular creatinine secretion. GFR/1.73 sq M predicted among blacks MDRD (S/P/Bld) [Vol rate/Area] mL/min/{1.73_m2} >60 mL/min [place], [place] Glucose [Mass/Vol] 119 mg/dL High 70 - 100 mg/dL [place], [place] Potassium [Moles/Vol] 3.9 mmol/L 3.5 - 5.1 mmol/L [place], [place] Comment on above: Slightly hemolysed, interpret with caution. Sodium [Moles/Vol] 141 mmol/L 135 - 145 mmol/L [place], [place] Urea nitrogen [Mass/Vol] 3 mg/dL Low 7 - 20 mg/dL [place], [place] C. difficile toxin Molecular on 10-11-2019 C. difficile toxin Molecular NEGATIVE Methodology - Real Time PCR ([employer]) Clinical judgement must be used when interpreting results. Positive results may reflect colonization. Indeterminate results suggest a new specimen be submitted. [place], [place] Test Performed by [facility], [address] [place] [id number] Specimen Source Comment:Stool [place], [place] CBCon 10-11-2019 Erythrocyte distribution width (RBC) [Ratio] 19.5 % High 11.5 - 14.5 % [place] Hematocrit (Bld) [Volume fraction] 32.6 % Low 35 - 47 % [place] Hemoglobin (Bld) [Mass/Vol] 10.2 g/dL Low 11.7 - 16 g/dL [place] Interpretation and review of laboratory results Abnormal [place] MCH (RBC) [Entitic mass] 26.9 pg 26 - 34 pg [place] MCHC (RBC) [Mass/Vol] 31.4 % Low 32 - 36 % [place], [place] MCV (RBC) [Entitic vol] 85.8 fL 79 - 98 fL [place], [place] Platelet mean volume (Bld) [Entitic vol] 8.8 fL 7.4 - 10.4 fL [place], [place] Platelets (Bld) [#/Vol] 374 10*3/uL 140 - 440 10*3/uL [place] RBC (Bld) [#/Vol] 3.80 10*6/uL 3.8 - 5.2 10*6/uL [place] WBC (Bld) [#/Vol] 29.8 10*3/uL High 3.6 - 10.7 10*3/uL [place] Test Performed by [facility], [address] [place] [address] [place], [place] CBC Auto Differentialon 09-22 Erythrocyte distribution width (RBC) [Ratio] 19.5 % High 11.5 - 14.5 % [place] Hematocrit (Bld) [Volume fraction] 34.1 % Low 35 - 47 % [place] Hemoglobin (Bld) [Mass/Vol] 10.8 g/dL Low 11.7 - 16 g/dL [place] Interpretation and review of laboratory results Abnormal [place] MCH (RBC) [Entitic mass] 26.8 pg 26 - 34 pg [place] MCHC (RBC) [Mass/Vol] 31.5 % Low 32 - 36 % [place], [place] MCV (RBC) [Entitic vol] 85.1 fL 79 - 98 fL [place], [place] Platelet mean volume (Bld) [Entitic vol] 8.5 fL 7.4 - 10.4 fL [place] Platelets (Bld) [#/Vol] 299 10*3/uL 140 - 440 10*3/uL [place] RBC (Bld) [#/Vol] 4.01 10*6/uL 3.8 - 5.2 10*6/uL [place] WBC (Bld) [#/Vol] 26.9 10*3/uL High 3.6 - 10.7 10*3/uL [place] Test Performed by [facility], [address] [place] [id number] [place] CR Abdomen APon 10-11-2019 CR Abdomen AP Patient Name: DORY BASURTO Diagnostic Radiology Exam Date/Time 10/11/2019 15:14:02 EDT Exam CR Abdomen AP Ordering Physician TIERNEY WHITE Accession Number [id number] CPT4 Codes 57118 () Reason For Exam NG placement for tube feed Report KUB CLINICAL INDICATION: NG placement Supine image of the abdomen was obtained portably. Oral gastric tube tip projects in the left upper quadrant in expected region of the stomach. Gas-filled dilated small bowel loops are noted diffusely in the abdomen with distribution slightly changed compared to yesterday's exam. There is a minimal component of colonic air identified. No substantial fluid collection is noted in the dilated small bowel loops. No acute interval osseous changes are identified. IMPRESSION: Oral gastric tube tip projects in the region of the stomach Diffuse small bowel air with mild dilatation favoring ileus Report Dictated on Final Dictated: 10/11/2019 5:23 pm Dictating Physician: MD CHANDLER DIANE Signed Date and Time: 10/11/2019 5:25 pm Signed by: MD CHANDLER DIANE Transcribed Date and Time: 10/11/2019 5:23 Normal [facility] CULTURE AND STAIN - FLUIDon 10-11-2019 CULTURE AND STAIN - FLUID CULTURE & STAIN - FLUID --> Status: F No growth at 5 days. STAIN GRAM --> Status: F Many polymorphonuclear cells/lpf. No organisms seen. No organisms seen. Normal [facility] Comment on above: Order Comment: Speci men Source Comment:Thoracentesis Performed By: #### H NGUYEN MG3, BMP3 #### [facility] [address] [place] [address] CULTURE MYCOBACTERIAon 10-10 CULTURE MYCOBACTERIA CULTURE MYCOBACTERI A --> Status: F No acid-fast bacilli isolated after 6 weeks incubation. STAIN ACID-FAST --> Status: F No acid-fast bacilli seen in smear. - Method: Fluorescent Stain - Method: Fluorescent Stain Normal [facility] Comment on above: Performed By: #### H NGUYEN MG3, BMP3 #### [facility] [address] [place] [address] EKG 12 Leadon 10-11-2019 Ezio, [facility] Incoming Cardiology Results From Merge[employer]Epiphany - 10/11/2019 5:43 PM EDT [facility] Test Date: 2019-10-10 Pat Name: Dory Basurto Department: 1A5W Room: [facility] Gender: F Doctor Of Naprapathy: LADAN : 1955 Requested By: YEHUDA MACKENZIE Order Number: [id number] Reading MD: Nikolai Javier Measurements Intervals [place] Rate: 104 P: 81 VT: 130 QRS: 83 QRSD: 83 T: 68 QT: 315 QTc: 415 Interpretive Statements Sinus tachycardia Multiple and frequent atrial premature complexes. Brief runs of atrial f fibrillation. Probable left atrial enlargement Low voltage, extremity leads Electronically Signed On 10-11-2019 17:42:34 EDT by Nikolai [facility] Test Date: 2019-10-10 Pat Name: Dory Basurto Department: 1A5W Room: [facility] Gender: F Doctor Of Naprapathy: LADAN : 1955 Requested By: YEHUDA MACKENZIE Order Number: [id number] Reading MD: Nikolai Javier Measurements Intervals [place] Rate: 104 P: 81 VT: 130 QRS: 83 QRSD: 83 T: 68 QT: 315 QTc: 415 Interpretive Statements Sinus tachycardia Multiple and frequent atrial premature complexes. Brief runs of atrial f fibrillation. Probable left atrial enlargement Low voltage, extremity leads Electronically Signed On 10-11-2019 17:42:34 EDT by Nikolai [place], [place] Hemogramon 10-11-2019 Erythrocyte distribution width (RBC) [Ratio] 19.5 % High 11.5-14.5 [facility] Comment on above: Performed By: #### H MG NGUYEN3, BMP3 #### [facility] [address] [address] Hematocrit (Bld) [Volume fraction] 32.6 % Low 35.0-47.0 [facility] Comment on above: Performed By: #### H NGUYEN MG3, BMP3 #### [facility] [address] Hemoglobin (Bld) [Mass/Vol] 10.2 g/dL Low 11.7-16.0 [facility] Comment on above: Performed By: #### H NGUYEN MG3, BMP3 #### [facility] [address] [place] MCH (RBC) [Entitic mass] 26.9 pg Normal 26.0-34.0 [facility] Comment on above: Performed By: #### Herman CEDILLO, MG3, BMP3 #### [facility] [address] [place] MCHC (RBC) [Mass/Vol] 31.4 % Low 32.0-36.0 [facility] Comment on above: Performed By: #### H EMOPerla, MG3, BMP3 #### [place] [address] [address] [place] MCV (RBC) [Entitic vol] 85.8 fL Normal 79.0-98.0 [facility] Comment on above: Performed By: #### H EMOPerla, MG3, BMP3 #### [place] [address] [address] [place] Platelet mean volume (Bld) [Entitic vol] 8.8 fL Normal 7.4-10.4 [facility] Comment on above: Performed By: #### H EMOG, MG3, BMP3 #### [place] [address] [place] Platelets (Bld) [#/Vol] 374 10*3/uL Normal 140-440 [facility] Comment on above: Performed By: #### H EMOG, MG3, BMP3 #### [place] [address] [place], [place] RBC (Bld) [#/Vol] 3.80 10*6/uL Normal 3.80-5.20 [facility] Comment on above: Performed By: #### H EMOG, MG3, BMP3 #### [place] [address] [place] WBC (Bld) [#/Vol] 29.8 10*3/uL High 3.6-10.7 [facility] Comment on above: Performed By: #### H NGUEYN MG3, BMP3 #### [place] [address] [place] Hemogram w/ Autodiffon 10-10 Erythrocyte distribution width (RBC) [Ratio] 19.5 % High 11.5-14.5 [facility] Comment on above: Performed By: #### H NGUYEN MG3, BMP3 #### [place] [address] [place] Hematocrit (Bld) [Volume fraction] 34.1 % Low 35.0-47.0 [facility] Comment on above: Performed By: #### H NGUYEN MG3, BMP3 #### [place] [address] [place] Hemoglobin (Bld) [Mass/Vol] 10.8 g/dL Low 11.7-16.0 [facility] Comment on above: Performed By: #### H NGUYEN MG3, BMP3 #### [place] [address] [address] [place] MCH (RBC) [Entitic mass] 26.8 pg Normal 26.0-34.0 [facility] Comment on above: Performed By: #### H NGUYEN MG3, BMP3 #### [place] [address] [address] [place] MCHC (RBC) [Mass/Vol] 31.5 % Low 32.0-36.0 [facility] Comment on above: Performed By: #### H NGUYEN MG3, BMP3 #### [place] [address] [place] MCV (RBC) [Entitic vol] 85.1 fL Normal 79.0-98.0 [facility] Comment on above: Performed By: #### H NGUYEN, MG3, BMP3 #### [place] [address] [place] Platelet mean volume (Bld) [Entitic vol] 8.5 fL Normal 7.4-10.4 [facility] Comment on above: Performed By: #### H EMOPerla, MG3, BMP3 #### [facility] [address] [place] Platelets (Bld) [#/Vol] 299 10*3/uL Normal 140-440 [facility] Comment on above: Performed By: #### H EMOG, MG3, BMP3 #### [place] [address] [place] RBC (Bld) [#/Vol] 4.01 10*6/uL Normal 3.80-5.20 [facility] Comment on above: Performed By: #### H NGUYEN, MG3, BMP3 #### [place] [address] [place] WBC (Bld) [#/Vol] 26.9 10*3/uL High 3.6-10.7 [facility] Comment on above: Performed By: #### H EMOPerla, MG3, BMP3 #### [place] [address] [place] Hepatic Functionon 0 ALP [Catalytic activity/Vol] 99 U/L Normal 38-126 [facility] Comment on above: Result Comment: Slig htly hemolysed, interpret with caution. Performed By: #### H EMOPerla, MG3, BMP3 #### [place] [address] [address] [place] ALT [Catalytic activity/Vol] 17 U/L Normal 0-34 [facility] Comment on above: Result Comment: The ALT test is performed by an updated assay method. Please note that the reference intervals have been changed and are now sex specific. Performed By: #### H EMOG, MG3, BMP3 #### [place] [address] [address] [place] AST [Catalytic activity/Vol] 43 U/L Normal 15-46 [facility] Comment on above: Result Comment: Slig htly hemolysed, interpret with caution. Performed By: #### H EMOG, MG3, BMP3 #### [address] [address] Bilirubin [Mass/Vol] 1.1 mg/dL Normal 0.2-1.3 [facility] Comment on above: Performed By: #### H NGUYEN MG3, BMP3 #### [address] [address] Bilirubin.direct [Mass/Vol] 0.0 mg/dL Normal 0.0-0.3 [facility] Comment on above: Performed By: #### H NGUYEN, MG3, BMP3 #### [place] [address] [place] [address] Albumin [Mass/Vol] 2.4 g/dL Low 3.5-5.0 [facility] Comment on above: Performed By: #### H NGUYEN, MG3, BMP3 #### [address] [address] Hepatic Function Panelon Albumin [Mass/Vol] 2.4 g/dL Low 3.5 - 5 g/dL [place], [place] ALP [Catalytic activity/Vol] 99 U/L 38 - 126 U/L [place], [place] Comment on above: Slightly hemolysed, interpret with caution. ALT [Catalytic activity/Vol] 17 U/L 0 - 34 U/L [place] Comment on above: The ALT test is perf ormed by an updated assay method. Please note that the reference intervals have been changed and are now sex specific. AST [Catalytic activity/Vol] 43 U/L 15 - 46 U/L [place] Comment on above: Slightly hemolysed, interpret with caution. Bilirubin Ql (U) 1.1 mg/dL 0.2 - 1.3 mg/dL [place] Bilirubin.direct [Mass/Vol] 0.0 mg/dL 0 - 0.3 mg/dL [place] Interpretation and review of laboratory results Abnormal [place] Protein [Mass/Vol] 5.0 g/dL Low 6.3 - 8.2 g/dL [place] Test Performed by [address] [address] [place] LDHon 10-11-2019 LDH 390 U/L High 120-246 [facility] Comment on above: Result Comment: Slig htly hemolysed, interpret with caution. Performed By: #### H EMOG, MG3, BMP3 #### [facility] [address] [place] [address] Lactate Dehydrogenaseon 09-22 LD 390 U/L High 120 - 246 U/L [place] Comment on above: Slightly hemolysed, interpret with caution. Magnesiumon 10-11-2019 Magnesium [Mass/Vol] 1.6 mg/dL Normal 1.6-2.3 [facility] Comment on above: Result Comment: Slig htly hemolysed, interpret with caution. Performed By: #### H EMOG, MG3, BMP3 #### [facility] [address] [place], [place] Magnesium [Mass/Vol] 1.6 mg/dL 1.6 - 2 .3 mg/dL [place] Comment on above: Slightly hemolysed, interpret with caution. Manual Diffon 10-11-2019 Abs Baso Cnt 0.0 10*3/uL Normal 0.0-0.2 [facility] Comment on above: Performed By: #### H EMOG, MG3, BMP3 #### [facility] [address] [place] [address] Abs Eosin Cnt 0.0 10*3/uL Normal 0.0-0.5 [facility] Comment on above: Performed By: #### H EMOG, MG3, BMP3 #### [facility] [address] [place] Abs Lymph Cnt 0.3 10*3/uL Low 1.1-4.5 [facility] Comment on above: Performed By: #### H EMOG, MG3, BMP3 #### [facility] [address] [place] [address] Abs Monocyte Cnt 0.8 10*3/uL Normal 0.2-1.1 [facility] Comment on above: Performed By: #### H EMOG, MG3, BMP3 #### [facility] [address] [place], [place] Abs Neutrophile Cnt 25.8 10*3/uL High 2.2-8.2 [facility] Comment on above: Performed By: #### H EMOG, MG3, BMP3 #### [facility] [address] [place] Bands 4 % High 0-3 [facility] Comment on above: Performed By: #### H EMOG, MG3, BMP3 #### [facility] [address] [place] Basophils 0 % Normal 0-2 [facility] Comment on above: Performed By: #### H EMOG, MG3, BMP3 #### [facility] [address] [place], [place] Cells counted 200 Normal [facility] Comment on above: Result Comment: KAITLIN ECTED RESULT...Previous above value was 100, verified on 10/11/19 at 02:22 by V/TRINA . Performed By: #### H EMOG, MG3, BMP3 #### [facility] [address] [place] Eosinophils 0 % Low 1-6 [facility] Comment on above: Performed By: #### H EMOG, MG3, BMP3 #### [facility] [address] [place] Lymphocytes 1 % Low 20-40 [facility] Comment on above: Performed By: #### H EMOG, MG3, BMP3 #### [facility] [address] [place] Monocytes 3 % Normal 2-10 [facility] Comment on above: Performed By: #### H EMOG, MG3, BMP3 #### [facility] [address] [place] RBC morphology finding Nom (Bld) Normal Normal [facility] Comment on above: Performed By: #### H EMOG, MG3, BMP3 #### [facility] [address] [place], [place] Seg Neutrophils 92 % High 40-80 [facility] Comment on above: Performed By: #### H EMOG, MG3, BMP3 #### [place] [address] [address] [facility] [place] Manual Differentialon 2019 Absolute Baso # 0.0 10*3/uL 0 - 0.2 10*3/uL [facility] [place] Absolute Eos # 0.0 10*3/uL 0 - 0.5 10*3/uL [facility] [place] Absolute Lymph # 0.3 10*3/uL Low 1.1 - 4.5 10*3/uL [facility] [place] Absolute Camas # 0.8 10*3/uL 0.2 - 1.1 10*3/uL [facility] [place] Absolute Neut # 25.8 10*3/uL High 2.2 - 8.2 10*3/uL [facility] [place] Bands 4 % High 0 - 3 % [facility] [place] Basophils 0 % 0 - 2 % [facility] [place] Eosinophils 0 % Low 1 - 6 % [facility] [place] Interpretation and review of laboratory results Abnormal [facility] [place] Lymphocytes 1 % Low 20 - 40 % [facility] [place] Monocytes 3 % 2 - 10 % [facility] [place] RBC morphology finding Nom (Bld) Normal [facility] [place] Seg Neutrophils 92 % High 40 - 80 % [facility] [place] TOTAL CELLS COUNTED 200 [facility] [place] Comment on above: CORRECTED RESULT...P revious above value was 100, verified on 10/11/19 at 02:22 by V/AUT . Test Performed by [facility] [place] [address] [facility] [place] Otheron 10-11-2019 Test Performed by [facility], [facility] [place] [address] [facility] [place] Interpretation and review of laboratory results Abnormal [facility] [place] Test Performed by [facility] [place] [address] [facility] [place] Phosphoruson 10-11-2019 Phosphate [Mass/Vol] 2.3 mg/dL Low 2.5-4.5 [facility] Comment on above: Result Comment: Slig htly hemolysed, interpret with caution. Performed By: #### H NGUYEN MG3, BMP3 #### [address] [address] Interpretation and review of laboratory results Abnormal [place] Phosphate [Mass/Vol] 2.3 mg/dL Low 2.5 - 4 .5 mg/dL [place] Comment on above: Slightly hemolysed, interpret with caution. Procalcitoninon 10-11-2019 Procalcitonin 0.15 ng/mL Abnormal <0.[address] [facility] Comment on above: Performed By: #### H NGUYEN MG3, BMP3 #### [address] [address] Interpretation and review of laboratory results Abnormal [place] Procalcitonin 0.15 ng/mL Abnormal <0.10 [place] Sodium [Moles/Vol] See Below [place], [place] Comment on above: PCT <0.50 = Low risk of severe sepsis and/or septic shock. PCT >2.00 = High risk of severe sepsis and/or septic shock. Test Performed by [facility] [id number] [place] [address] RESPIRATORY PCR PANELon 09-22 RESPIRATORY PCR PANEL RESPIRATORY PCR PA ALBA --> Status: F NEGATIVE: No targets were detected by the [employer] Upper Respiratory Pathogens PCR Panel. PLEASE NOTE: This assay DOES NOT detect SARS-CoV-2/COVID-19. _ The [employer] Upper Respiratory Pathogens PCR Panel can detect the following targets: Adenovirus, Coronavirus 229E, Coronavirus HKU1, Coronavirus NL63, Coronavirus OC43, Human Metapneumovirus, Human Rhinovirus/Enterovirus , Influenza A, Influenza B, Parainfluenza Virus 1, Parainfluenza Virus 2, Parainfluenza Virus 3, Parainfluenza Virus 4, Respiratory Syncytial Virus, Bordetella pertussis, Bordetella parapertussis, Chlamydia pneumoniae, Mycoplasma pneumoniae Respiratory Pathogens PCR Panel. PLEASE NOTE: This assay DOES NOT detect SARS-CoV-2/COVID-19. _ The [employer] Upper Respiratory Pathogens PCR Panel can detect the following targets: Adenovirus, Coronavirus 229E, Coronavirus HKU1, Coronavirus NL63, Coronavirus OC43, Human Metapneumovirus, Human Rhinovirus/Enterovirus , Influenza A, Influenza B, Parainfluenza Virus 1, Parainfluenza Virus 2, Parainfluenza Virus 3, Parainfluenza Virus 4, Respiratory Syncytial Virus, Bordetella pertussis, Bordetella parapertussis, Chlamydia pneumoniae, Mycoplasma pneumoniae Normal [facility] Comment on above: Order Comment: Speci men Source Comment:Nasopharyngeal Performed By: #### H NGUYEN MG3, BMP3 #### [address] [address] Respiratory Virus PCR Panelo n 10-11-2019 Respiratory Panel PCR NEGATIVE: No targe ts were detected by the [employer] Upper Respiratory Pathogens PCR Panel. PLEASE NOTE: This assay DOES NOT detect SARS-CoV-2/COVID-19. _ The [employer] Upper Respiratory Pathogens PCR Panel can detect the following targets: Adenovirus, Coronavirus 229E, Coronavirus HKU1, Coronavirus NL63, Coronavirus OC43, Human Metapneumovirus, Human Rhinovirus/Enterovirus , Influenza A, Influenza B, Parainfluenza Virus 1, Parainfluenza Virus 2, Parainfluenza Virus 3, Parainfluenza Virus 4, Respiratory Syncytial Virus, Bordetella pertussis, Bordetella parapertussis, Chlamydia pneumoniae, Mycoplasma pneumoniae [facility], [place] Test Performed by [facility], [address] [place] [id number] Specimen Source Comment:Nasopharyngeal [facility], [place] STAIN GRAMon 10-11-2019 STAIN GRAM STAIN GRAM --> Statu s: F Many polymorphonuclear cells/lpf. Many mononuclear cells/lpf No organisms seen. Cytocentrifugation performed. Microscopic observation and enumeration of white blood cells should be confirmed by Cell Count with Differential. Many mononuclear cells/lpf No organisms seen. Cytocentrifugation performed. Microscopic observation and enumeration of white blood cells should be confirmed by Cell Count with Differential. Normal [facility] Comment on above: Order Comment: Speci men Source Comment:Body Fluid Performed By: #### H EMOG, MG3, BMP3 #### [facility] [address] [place] [address] Total Proteinon 10-11-2019 Protein [Mass/Vol] 5.0 g/dL Low 6.3-8.2 [facility] Comment on above: Performed By: #### H EMOG, MG3, BMP3 #### [facility] [address] [place] [address] US GUIDE THORACENTESISon Ezio, [facility] Incoming Radiology Results From [facility] - 10/11/2019 11:56 AM EDT Patient Name: DORY BASURTO ---Ultrasound--- Exam Date/Time 10/11/2019 11:25:56 EDT Exam US Thora-Aspir Pleura w/ Image Ordering Physician MD CADE, [place] Accession Number [id number] CPT4 Codes 07610 () Reason For Exam R pleural effusion Report CLINICAL HISTORY: Right-sided pleural effusion Procedures: Ultrasound-guided right-sided thoracentesis. Physician: Dr. Hoover MEDICATIONS: Local lidocaine. EBL: Minimal. Contrast: None. Specimen sent: None COMPLICATIONS: None. Procedural details: All of the risk, benefits, and alternative treatments were explained to the patient and informed consent was obtained and documented. This procedure was performed in the ICU based on patient instability. The patient's back was evaluated with ultrasound and a suitable site for thoracentesis was identified on the right side. Color Doppler was used to assess for overlying vascular structures. A timeout was performed. The overlying skin was prepped and draped in the usual sterile fashion. The overlying subcutaneous tissues were anesthetized using 2 percent lidocaine. Following this, a 5 Indian Yueh catheter was then advanced into the fluid collection under suction. There was return of yellowish serosanguineous fluid. The catheter was then deployed and hooked up to Vacutainer bottles. Findings: Large right-sided pleural effusion Evacuation of 900 mL of yellowish serosanguineous fluid. IMPRESSION: Successful uncomplicated ultrasound-guided right-sided thoracentesis. Report Dictated on Workstation: [id number] --- Final --- Dictated: 10/11/2019 11:53 am Dictating Physician: MD HOOVER YUN ROBERT Signed Date and Time: 10/11/2019 11:54 am Signed by: MD HOOVER YUN ROBERT Transcribed Date and Time: 10/11/2019 11:53 [place], [place] Patient Name: DORY BASURTO ---Ultrasound--- Exam Date/Time 10/11/2019 11:25:56 EDT Exam US Thora-Aspir Pleura w/ Image Ordering Physician MD CADE [place] Accession Number [id number] CPT4 Codes 88149 () Reason For Exam R pleural effusion Report CLINICAL HISTORY: Right-sided pleural effusion Procedures: Ultrasound-guided right-sided thoracentesis. Physician: Dr. Hoover MEDICATIONS: Local lidocaine. EBL: Minimal. Contrast: None. Specimen sent: None COMPLICATIONS: None. Procedural details: All of the risk, benefits, and alternative treatments were explained to the patient and informed consent was obtained and documented. This procedure was performed in the ICU based on patient instability. The patient's back was evaluated with ultrasound and a suitable site for thoracentesis was identified on the right side. Color Doppler was used to assess for overlying vascular structures. A timeout was performed. The overlying skin was prepped and draped in the usual sterile fashion. The overlying subcutaneous tissues were anesthetized using 2 percent lidocaine. Following this, a 5 [employer] catheter was then advanced into the fluid collection under suction. There was return of yellowish serosanguineous fluid. The catheter was then deployed and hooked up to Vacutainer bottles. Findings: Large right-sided pleural effusion Evacuation of 900 mL of yellowish serosanguineous fluid. IMPRESSION: Successful uncomplicated ultrasound-guided right-sided thoracentesis. Report Dictated on Workstation: [id number] --- Final --- Dictated: 10/11/2019 11:53 am Dictating Physician: MD HOOVER YUN ROBERT Signed Date and Time: 10/11/2019 11:54 am Signed by: MD HOOVER YUN ROBERT Transcribed Date and Time: 10/11/2019 11:53 [facility] [place], [place] US Thora-Aspir Pleura w/ Yesenia geon 10-11-2019 US Thora-Aspir Pleura w/ Image Patient Name: DORY BASURTO Ultrasound Exam Date/Time 10/11/2019 11:25:56 EDT Exam US Thora-Aspir Pleura w/ Image Ordering Physician MD SUAREZ ASHLEY Accession Number [id number] CPT4 Codes 41031 () Reason For Exam R pleural effusion Report CLINICAL HISTORY: Right-sided pleural effusion Procedures: Ultrasound-guided right-sided thoracentesis. Physician: Dr. Hoover MEDICATIONS: Local lidocaine. EBL: Minimal. Contrast: None. Specimen sent: None COMPLICATIONS: None. Procedural details: All of the risk, benefits, and alternative treatments were explained to the patient and informed consent was obtained and documented. This procedure was performed in the ICU based on patient instability. The patient's back was evaluated with ultrasound and a suitable site for thoracentesis was identified on the right side. Color Doppler was used to assess for overlying vascular structures. A timeout was performed. The overlying skin was prepped and draped in the usual sterile fashion. The overlying subcutaneous tissues were anesthetized using 2 percent lidocaine. Following this, a 5 [employer] catheter was then advanced into the fluid collection under suction. There was return of yellowish serosanguineous fluid. The catheter was then deployed and hooked up to Vacutainer bottles. Findings: Large right-sided pleural effusion Evacuation of 900 mL of yellowish serosanguineous fluid. IMPRESSION: Successful uncomplicated ultrasound-guided right-sided thoracentesis. Report Dictated on Workstation: [id number] Final Dictated: 10/11/2019 11:53 am Dictating Physician: MD HOOVER YUN ROBERT Signed Date and Time: 10/11/2019 11:54 am Signed by: MD HOOVER YUN ROBERT Transcribed Date and Time: 10/11/2019 11:53 Normal [facility] XR ABDOMEN (KUB) (SINGLE AP VIEW)on 10-11-2019 Patient Name: DORY BASURTO ---Diagnostic Radiology--- Exam Date/Time 10/11/2019 15:14:02 EDT Exam CR Abdomen AP Ordering Physician TIERNEY WHITE Accession Number [id number] CPT4 Codes 79881 () Reason For Exam NG placement for tube feed Report KUB CLINICAL INDICATION: NG placement Supine image of the abdomen was obtained portably. Oral gastric tube tip projects in the left upper quadrant in expected region of the stomach. Gas-filled dilated small bowel loops are noted diffusely in the abdomen with distribution slightly changed compared to yesterday's exam. There is a minimal component of colonic air identified. No substantial fluid collection is noted in the dilated small bowel loops. No acute interval osseous changes are identified. IMPRESSION: Oral gastric tube tip projects in the region of the stomach Diffuse small bowel air with mild dilatation favoring ileus Report Dictated on --- Final --- Dictated: 10/11/2019 5:23 pm Dictating Physician: MD CHANDLER DIANE Signed Date and Time: 10/11/2019 5:25 pm Signed by: MD CHANDLER DIANE Transcribed Date and Time: 10/11/2019 5:23 [place], [place] [facility], [facility] Incoming Radiology Results From [facility] - 10/11/2019 5:26 PM EDT Patient Name: DORY BASURTO ---Diagnostic Radiology--- Exam Date/Time 10/11/2019 15:14:02 EDT Exam CR Abdomen AP Ordering Physician TIERNEY WHITE Accession Number [id number] CPT4 Codes 91278 () Reason For Exam NG placement for tube feed Report KUB CLINICAL INDICATION: NG placement Supine image of the abdomen was obtained portably. Oral gastric tube tip projects in the left upper quadrant in expected region of the stomach. Gas-filled dilated small bowel loops are noted diffusely in the abdomen with distribution slightly changed compared to yesterday's exam. There is a minimal component of colonic air identified. No substantial fluid collection is noted in the dilated small bowel loops. No acute interval osseous changes are identified. IMPRESSION: Oral gastric tube tip projects in the region of the stomach Diffuse small bowel air with mild dilatation favoring ileus Report Dictated on --- Final --- Dictated: 10/11/2019 5:23 pm Dictating Physician: MD CHANDLER DIANE Signed Date and Time: 10/11/2019 5:25 pm Signed by: MD CHANDLER DIANE Transcribed Date and Time: 10/11/2019 5:23 [facility], [place] Add On Lab Teston 10-10-2019 Sodium [Moles/Vol] Rejected [place], [place] Comment on above: No specimen availabl e for addon. Test Performed by [facility], [address] [place] [id number] [facility], [place] Add on test from HISon 10-09 Add on test from HIS Rejected Normal [facility] Comment on above: Result Comment: No s pecimen available for addon. Performed By: #### H EMOG, MG3, BMP3 #### [address] Arterial Blood Gaseson 10-09 CO2 [Moles/Vol] 23.2 mmol/L Normal 23.0-27.0 [facility] Comment on above: Performed By: #### H EMOG, MG3, BMP3 #### [address] [address] [place] [address] HCO3 (Bld) [Moles/Vol] 22.1 mmol/L Normal 21.0-25.0 [facility] Comment on above: Performed By: #### H EMOG, MG3, BMP3 #### [address] [address] [place] [address] Hemoglobin (Bld) [Mass/Vol] 11.0 g/dL Normal ScreenOnly [facility] Comment on above: Performed By: #### H EMOG, MG3, BMP3 #### [address] [address] [place] [address] Oxygen (Bld) [Partial pressure] 54.7 mm[Hg] Low 80.0-100.0 [facility] Comment on above: Performed By: #### H EMOG, MG3, BMP3 #### [address] [address] [place] [address] Oxygen saturation in Blood 88.9 % Low 95.0-100.0 [facility] Comment on above: Performed By: #### H EMOG, MG3, BMP3 #### [facility] [address] [place], [place] pCO2 34.0 mm[Hg] Low 35.0-45.0 [facility] Comment on above: Performed By: #### H EMOG, MG3, BMP3 #### [facility] [address] [place], [place] pH (Bld) 7.431 Normal 7.350-7.450 [facility] Comment on above: Performed By: #### H EMOG, MG3, BMP3 #### [facility] [address] [place], [place] Std Base Excess -1.7 mmol/L Normal -3.0-3.0 [facility] Comment on above: Performed By: #### H EMOG, MG3, BMP3 #### [address] [place], [place] FIO2 No data Normal [facility] Comment on above: Performed By: #### H EMOG, MG3, BMP3 #### [address] [place], [place] Basic Metabolic Panelon 09-21 Anion gap [Moles/Vol] 4 Normal [facility] Comment on above: Performed By: #### H EMOG, MG3, BMP3 #### [facility] [address] [place], [place] Calcium [Mass/Vol] 7.4 mg/dL Low 8.4-10.4 [facility] Comment on above: Performed By: #### H EMOG, MG3, BMP3 #### [facility] [address] [place], [place] CO2 [Moles/Vol] 24 mmol/L Normal 22-30 [facility] Comment on above: Performed By: #### H EMOG, MG3, BMP3 #### [facility] [address] [place], [place] Glucose [Mass/Vol] 74 mg/dL Normal 70-100 [facility] Comment on above: Performed By: #### H EMETERIOG, MG3, BMP3 #### [facility] [address] [place] [address] Urea nitrogen [Mass/Vol] mg/dL Low 7-20 [facility] Comment on above: Performed By: #### H EMOG, MG3, BMP3 #### [facility] [address] [place], [place] Creatinine [Mass/Vol] 0.30 mg/dL Low 0.52-1.25 [facility] Comment on above: Performed By: #### H NGUYEN, MG3, BMP3 #### [facility] [address] [place] [address] GFR/1.73 sq M predicted among blacks MDRD (S/P/Bld) [Vol rate/Area] mL/min/{1.73_m2} Normal >60 [facility] Comment on above: Performed By: #### H NGUYEN MG3, BMP3 #### [facility] [address] [place], [place] GFR/1.73 sq M predicted among non-blacks MDRD (S/P/Bld) [Vol rate/Area] mL/min/{1.73_m2} Normal >60 [facility] Comment on above: Result Comment: KDIG O guidelines provide the following GFR categories: Stage GFR(ml/min/1.73 m2) Terms G1 >=90 Normal or high G2 60-89 Mildly decreased* G3a 45-59 Mildly to moderately decreased G3b 30-44 Moderately to severely decreased G4 15-29 Severely decreased G5 <15 Kidney failure *Relative to young adult level. In the absence of evidence of kidney damage, neither GFR category G1 nor G2 fulfill the criteria for CKD. The CKD-EPI equation is validated in individuals 18 years of age and older. Currently the best equation for estimating glomerular filtration rate (GFR) from serum creatinine in children is the Bedside Oshea equation. It is less accurate in patients with extremes of muscle mass, restriction of dietary protein, ingestion of creatine, extra-renal metabolism of creatinine, or treatment with medications that affect renal tubular creatinine secretion. Performed By: #### H EMOG, MG3, BMP3 #### [facility] [address] [place] [address] Chloride [Moles/Vol] 110 mmol/L High 98-107 [facility] Comment on above: Performed By: #### H NGUYEN MG3, BMP3 #### [facility] [address] [place] [address] Potassium [Moles/Vol] 3.4 mmol/L Low 3.5-5.1 [facility] Comment on above: Performed By: #### H NGUYEN MG3, BMP3 #### [facility] [address] [place] [address] Sodium [Moles/Vol] 138 mmol/L Normal 135-145 [facility] Comment on above: Performed By: #### H NGUYEN MG3, BMP3 #### [facility] [address] [place] [address] Basic Metabolic Panel w/ Ref segundo to MGon 10-10-2019 Anion gap [Moles/Vol] 4 mmol/L [place], [place] Calcium [Mass/Vol] 7.4 mg/dL Low 8.4 - 10. 4 mg/dL [place], [place] Chloride [Moles/Vol] 110 mmol/L High 98 - 10 7 mmol/L [place] CO2 [Moles/Vol] 24 mmol/L 22 - 30 mmol/L [place] Creatinine [Mass/Vol] 0.3 mg/dL Low 0.52 - 1.25 mg/dL [place] EGFR IF NonAfrican [place]an >90.0 >60 mL/min [place] Comment on above: KDIGO guidelines pro vide the following GFR categories: Stage GFR(ml/min/1.73 m2) Terms G1 >=90 Normal or high G2 60-89 Mildly decreased* G3a 45-59 Mildly to moderately decreased G3b 30-44 Moderately to severely decreased G4 15-29 Severely decreased G5 <15 Kidney failure *Relative to young adult level. In the absence of evidence of kidney damage, neither GFR category G1 nor G2 fulfill the criteria for CKD. The CKD-EPI equation is validated in individuals 18 years of age and older. Currently the best equation for estimating glomerular filtration rate (GFR) from serum creatinine in children is the Bedside Oshea equation. It is less accurate in patients with extremes of muscle mass, restriction of dietary protein, ingestion of creatine, extra-renal metabolism of creatinine, or treatment with medications that affect renal tubular creatinine secretion. GFR/1.73 sq M predicted among blacks MDRD (S/P/Bld) [Vol rate/Area] mL/min/{1.73_m2} >60 mL/min [place] Glucose [Mass/Vol] 74 mg/dL 70 - 100 mg/dL [place], [place] Interpretation and review of laboratory results Abnormal [place] Potassium [Moles/Vol] 3.4 mmol/L Low 3.5 - 5.1 mmol/L [place] Sodium [Moles/Vol] 138 mmol/L 135 - 145 mmol/L [place] Urea nitrogen [Mass/Vol] mg/dL Low 7 - 20 mg/dL [place] Test Performed by [id number], [address] [place] [address] [place], [place] Blood Gas, Arterialon 2019 Base Excess, Arterial -1.7 mmol/L -3 - 3 mmol/L [place] HCO3, Arterial 22.1 mmol/L 21 - 25 mmol/L [place] Hemoglobin (Bld) [Mass/Vol] 11 g/dL ScreenOnly [place] Interpretation and review of laboratory results Abnormal [place] Oxygen saturation in Blood 88.9 % Low 95 - 100 % [place] pCO2, Arterial 34.0 mm[Hg] Low 35 - 45 mm[Hg] [place] pH, Arterial 7.431 [place] pO2, Arterial 54.7 mm[Hg] Low 80 - 100 mm[Hg] [place] Sodium [Moles/Vol] No data [place] TCO2, Arterial 23.2 mmol/L 23 - 27 mmol/L [place] Test Performed by [facility] [address] [address] [place] Body Fluid Cell Count with D ifferentialon 10-10-2019 Nucl Cell, Fluid 626 {cells}/uL [place], [place] RED BLOOD CELLS, BODY FLUID 88 {RBC}/uL [place] Sodium [Moles/Vol] Thoracentesis [place], [place] Test Performed by [facility], [address] [place] [address] [place] CBC Auto Differentialon 09-21 Absolute Baso # 0.1 10*3/uL 0 - 0.2 10*3/uL [place] Absolute Neut # 15.4 10*3/uL High 1.8 - 7 10*3/uL [place] Eosinophils (Bld) [#/Vol] 0.0 10*3/uL 0 - 0.5 10*3/uL [place] Interpretation and review of laboratory results Abnormal [place] Lymphocytes (Bld) [#/Vol] 1.1 10*3/uL 1 - 4.3 10*3/uL [place] Test Performed by [facility], [address] [place] [address] [place] Absolute Baso # 0.1 10*3/uL 0 - 0.2 10*3/uL [place] Absolute Neut # 12.1 10*3/uL High 1.8 - 7 10*3/uL [place] Basophils/100 WBC (Bld) 0.6 % 0 - 2 % [place], [place] Eosinophils/100 WBC (Bld) 0.2 % Low 1 - 6 % [place] Erythrocyte distribution width (RBC) [Ratio] 18.8 % High 11.5 - 14.5 % [place] Granulocytes/100 WBC (Bld) 81.1 % High 40 - 80 % [place] Hematocrit (Bld) [Volume fraction] 33.1 % Low 35 - 47 % [place] Hemoglobin (Bld) [Mass/Vol] 10.6 g/dL Low 11.7 - 16 g/dL [place] Interpretation and review of laboratory results Abnormal [place] Lymphocytes/100 WBC (Bld) 7.5 % Low 20 - 40 % [place] MCH (RBC) [Entitic mass] 27.2 pg 26 - 34 pg [place] MCHC (RBC) [Mass/Vol] 32.1 % 32 - 36 % [place], [place] MCV (RBC) [Entitic vol] 84.6 fL 79 - 98 fL [place], [place] Monocytes (Bld) [#/Vol] 1.6 10*3/uL High 0 - 0.8 10*3/uL [place], [place] Monocytes/100 WBC (Bld) 10.6 % High 2 - 10 % [place] Platelet mean volume (Bld) [Entitic vol] 8.2 fL 7.4 - 10.4 fL [place] Platelets (Bld) [#/Vol] 277 10*3/uL 140 - 440 10*3/uL [place] RBC (Bld) [#/Vol] 3.91 10*6/uL 3.8 - 5.2 10*6/uL [place] WBC (Bld) [#/Vol] 15.0 10*3/uL High 3.6 - 10.7 10*3/uL [place] Test Performed by [facility], [address] [place] [address] [place] COVID-19on 10-10-2019 SARS-CoV-2 Not Detected Expected Result: Not Detected _ Real-time, RT-PCR performed on the [employer] System by the [facility]. Negative results do not preclude SARS-CoV-2 infection and should not be used as the sole basis for treatment or other patient management decisions. This assay was developed by [employer] and distributed under an Emergency Use Authorization (EUA) granted by the FDA for the qualitative detection of SARS-CoV-2 nucleic acid. Results were determined from a pool consisting of specimens from additional patients. This test was modified, and its performance characteristics, showing minimal loss of sensitivity, have been validated by the [facility]. Approval is pending review by the U. S. Food and Drug Administration. If symptoms are severe and persist, testing a new specimen may be warranted. Additionally, IgG testing may be considered for patients more than 7-10 days post onset of symptoms. [facility], [address] [place] [id number] Specimen Source Comment:Nasopharyngeal Swab [facility] CR Abdomen APon 10-10-2019 CR Abdomen AP Patient Name: DORY BASURTO Diagnostic Radiology Exam Date/Time 10/10/2019 15:14:46 EDT Exam CR Abdomen AP Ordering Physician MD ARANA MAZEN E Accession Number [id number] CPT4 Codes 76831 () Reason For Exam follow up ileus Report SINGLE VIEW ABDOMEN CLINICAL INDICATION: follow up ileus TECHNIQUE: Single view abdomen x-ray COMPARISON: 10/07/2019 FINDINGS: NG tube has been withdrawn since the previous study, tip is about the level of the GE junction. Mild gaseous distention of colon and to a lesser extent small bowel in the pelvis a little more prominent than on the prior study. IMPRESSION: 1. Suspected ileus, a little worse than on the prior study. NG tube tip now about the level of the GE junction. Report Dictated on Final Dictated: 10/10/2019 8:41 pm Dictating Physician: MD OLMEDO JOHN R Signed Date and Time: 10/10/2019 8:43 pm Signed by: MD OLMEDO JOHN R Transcribed Date and Time: 10/10/2019 8:41 Normal [facility] CR Chest Portableon 10-10-19 20 CR Chest Portable Patient Name: DORY BASURTO Diagnostic Radiology Exam Date/Time 10/10/2019 17:24:30 EDT Exam CR Chest Portable Ordering Physician YEHUDA CARSON Accession Number [id number] CPT4 Codes 61513 () Reason For Exam shortness of breath Report Examination: Portable Chest, 1634 hours 10/10/2019. Comparison: 10/09/2019. Reason For Study: Shortness of breath. Findings: Cardiac silhouette is enlarged. No mediastinal abnormality is observed. Lungs are diminished in volume. Bilateral perihilar and apical interstitial opacities are redemonstrated. Bibasilar opacities obscure the diaphragm and blunts the costophrenic angles. Osseous structures appear intact. There is a left convex curvature of the thoracic spine. Support Devices: None. Conclusion(s): 1. Interstitial edema superimposed on asymmetric pneumonitis, predominating on the left. 2. Bilateral pleural effusions and basilar atelectasis, worse on the right. 3. Cardiomegaly. Report Dictated on Final Dictated: 10/10/2019 5:53 pm Dictating Physician: MD BOSTON B NELSON Signed Date and Time: 10/10/2019 6:03 pm Signed by: MD BOSTON B NELSON Transcribed Date and Time: 10/10/2019 5:[address] [facility] CT CHEST WO CONTRASTon 10-09 Ezio, [facility] Incoming Radiology Results From [facility] - 10/10/2019 12:46 PM EDT Patient Name: DORY BASURTO ---CT--- Exam Date/Time 10/10/2019 11:50:[address] Chest w/o Contrast Ordering Physician MD [facility]OTER,[facility] Accession Number [id number] CPT4 Codes 24513 (CT Chest w/o Contrast) Reason For Exam large left pleural effusion seen on echo/worsening sob Report CLINICAL HISTORY: large left pleural effusion seen on echo/worsening sob COMPARISON: 10/06/2019 Technique: Axial CT images were obtained of the chest. Images were reformatted in coronal and sagittal projections. Intravenous contrast: None FINDINGS: Lungs/pleura: Centrilobular emphysema is seen. Patchy groundglass opacities are seen bilaterally in the lungs. Moderate to large bilateral pleural effusions present. No masses identified. Heart/Great vessels: Normal heart size with no pericardial effusion. There is mild to moderate coronary artery calcification. The aorta and pulmonary arteries are normal in caliber. Mediastinum/So: No enlarged mediastinal, hilar, or axillary lymph nodes. NG tube tip is near the GE junction. Visualized Upper Abdomen: The liver is diffusely low in attenuation. Chest wall/Lower neck: Thyroid is normal in appearance. Bones: T6 compression deformity is seen with near complete height loss anteriorly. There is accentuated kyphosis at this level. Minimal retropulsion is seen. There is mild S-shaped curvature of the upper thoracic spine. No suspicious osseous lesions are seen. IMPRESSION: 1. Pulmonary emphysema with patchy bilateral peripheral airspace disease suggestive of pneumonia. Imaging features can be seen with (Covid-19) pneumonia, though are nonspecific and can occur with a variety of infectious and noninfectious processes. 2. Moderate to large bilateral pleural effusions. 3. Severe hepatic steatosis with possible superimposed edema in the proper clinical setting. 4. NG tube tip near the GE junction. Recommend advancement several centimeters. 5. Age indeterminant T6 compression deformity with near complete height loss anteriorly and accentuated kyphosis at that level. Report Dictated on Workstation: [id number] --- Final --- Dictated: 10/10/2019 12:13 pm Dictating Physician: MD ROME JAMES Signed Date and Time: 10/10/2019 12:45 pm Signed by: MD ROME JAMES Transcribed Date and Time: 10/10/2019 12:13 [place], [place] Patient Name: DORY BASURTO ---CT--- Exam Date/Time 10/10/2019 11:50:[address] Chest w/o Contrast Ordering Physician MD SCOOTER,[facility] Accession Number [id number] CPT4 Codes 27793 (CT Chest w/o Contrast) Reason For Exam large left pleural effusion seen on echo/worsening sob Report CLINICAL HISTORY: large left pleural effusion seen on echo/worsening sob COMPARISON: 10/06/2019 Technique: Axial CT images were obtained of the chest. Images were reformatted in coronal and sagittal projections. Intravenous contrast: None FINDINGS: Lungs/pleura: Centrilobular emphysema is seen. Patchy groundglass opacities are seen bilaterally in the lungs. Moderate to large bilateral pleural effusions present. No masses identified. Heart/Great vessels: Normal heart size with no pericardial effusion. There is mild to moderate coronary artery calcification. The aorta and pulmonary arteries are normal in caliber. Mediastinum/So: No enlarged mediastinal, hilar, or axillary lymph nodes. NG tube tip is near the GE junction. Visualized Upper Abdomen: The liver is diffusely low in attenuation. Chest wall/Lower neck: Thyroid is normal in appearance. Bones: T6 compression deformity is seen with near complete height loss anteriorly. There is accentuated kyphosis at this level. Minimal retropulsion is seen. There is mild S-shaped curvature of the upper thoracic spine. No suspicious osseous lesions are seen. IMPRESSION: 1. Pulmonary emphysema with patchy bilateral peripheral airspace disease suggestive of pneumonia. Imaging features can be seen with (Covid-19) pneumonia, though are nonspecific and can occur with a variety of infectious and noninfectious processes. 2. Moderate to large bilateral pleural effusions. 3. Severe hepatic steatosis with possible superimposed edema in the proper clinical setting. 4. NG tube tip near the GE junction. Recommend advancement several centimeters. 5. Age indeterminant T6 compression deformity with near complete height loss anteriorly and accentuated kyphosis at that level. Report Dictated on Workstation: [id number] --- Final --- Dictated: 10/10/2019 12:13 pm Dictating Physician: MD ROME JAMES Signed Date and Time: 10/10/2019 12:45 pm Signed by: MD ROME JAMES Transcribed Date and Time: 10/10/2019 12:13 [place], [place] CT Chest w/o Contraston 09-21 CT Chest w/o Contrast Patient Name: DORY ARGUETA CT Exam Date/Time 10/10/2019 11:50:[address] Chest w/o Contrast Ordering Physician MD SCOOTER,KILO [facility] Accession Number [id number] CPT4 Codes 19020 (CT Chest w/o Contrast) Reason For Exam large left pleural effusion seen on echo/worsening sob Report CLINICAL HISTORY: large left pleural effusion seen on echo/worsening sob COMPARISON: 10/06/2019 Technique: Axial CT images were obtained of the chest. Images were reformatted in coronal and sagittal projections. Intravenous contrast: None FINDINGS: Lungs/pleura: Centrilobular emphysema is seen. Patchy groundglass opacities are seen bilaterally in the lungs. Moderate to large bilateral pleural effusions present. No masses identified. Heart/Great vessels: Normal heart size with no pericardial effusion. There is mild to moderate coronary artery calcification. The aorta and pulmonary arteries are normal in caliber. Mediastinum/So: No enlarged mediastinal, hilar, or axillary lymph nodes. NG tube tip is near the GE junction. Visualized Upper Abdomen: The liver is diffusely low in attenuation. Chest wall/Lower neck: Thyroid is normal in appearance. Bones: T6 compression deformity is seen with near complete height loss anteriorly. There is accentuated kyphosis at this level. Minimal retropulsion is seen. There is mild S-shaped curvature of the upper thoracic spine. No suspicious osseous lesions are seen. IMPRESSION: 1. Pulmonary emphysema with patchy bilateral peripheral airspace disease suggestive of pneumonia. Imaging features can be seen with (Covid-19) pneumonia, though are nonspecific and can occur with a variety of infectious and noninfectious processes. 2. Moderate to large bilateral pleural effusions. 3. Severe hepatic steatosis with possible superimposed edema in the proper clinical setting. 4. NG tube tip near the GE junction. Recommend advancement several centimeters. 5. Age indeterminant T6 compression deformity with near complete height loss anteriorly and accentuated kyphosis at that level. Report Dictated on Workstation: [id number] Final Dictated: 10/10/2019 12:13 pm Dictating Physician: MD ROME JAMES Signed Date and Time: 10/10/2019 12:45 pm Signed by: MD ROME JAMES Transcribed Date and Time: 10/10/2019 12:13 Normal [facility] Cell Count,Body Fluidon - RBC Count Body Fld 88 {RBC}/uL Normal [facility] Comment on above: Performed By: #### H EMOG, MG3, BMP3 #### [facility] [address] [place], [place] Nucleated Cells 626 {cells}/uL Normal [facility] Comment on above: Performed By: #### H EMOG, MG3, BMP3 #### [facility] [address] [place], [place] Fluid Type Thoracentesis Normal [facility] Comment on above: Performed By: #### H EMOG, MG3, BMP3 #### [facility] [address] [place], [place] D-Dimer, Innovanceon 10-09-2 020 D-Dimer, Innovance 1.80 mg/L High 0.00-0.50 [facility] Comment on above: Result Comment: Inno colin D-Dimer values of <0.50 mg/L FEU can be used in combination with a pre-test probability model (e.g. Well's) to exclude pulmonary embolism (PE) disease, as well as an aid in the diagnosis of deep vein thrombosis (DVT). Performed By: #### H MG NGUYEN3, BMP3 #### [address] [place] [address] D-Dimer, Quantitativeon 08- D-Dimer, Quant 1.8 mg/L High 0 - 0.5 mg/L [place], [place] Comment on above: Innovance D-Dimer va lues of <0.50 mg/L FEU can be used in combination with a pre-test probability model (e.g. Well's) to exclude pulmonary embolism (PE) disease, as well as an aid in the diagnosis of deep vein thrombosis (DVT). Interpretation and review of laboratory results Abnormal [place], [place] Test Performed by [facility], [address] [place] [address] [place], [place] Differential, Body Fluidon 0 10-10-2019 Lymphocytes/100 WBC (Bld) 1 % [place] Macrophage count 23 % [place] Monocytes/100 WBC (Bld) 1 % [place] Neutrophils/100 WBC (Bld) 74 % [place] Other Cells, Fluid 1 % [place] Comment on above: MESOTHELIAL CELL Sodium [Moles/Vol] 100 mmol/L [place] Test [facility], [address] [place] [address] [place], [place] Differential,Body Fluidson 0 10-10-2019 Other Cells 1 % Normal [facility] Comment on above: Result Comment: MESO THELIAL CELL Performed By: #### H NGUYEN MG3, BMP3 #### [facility] [address] [place] [address] Lymphocytes/100 WBC (Bld) 1 % Normal [facility] Comment on above: Performed By: #### H EMOG, MG3, BMP3 #### [facility] [address] [place] [address] Macrophages 23 % Normal [facility] Comment on above: Performed By: #### H EMOG, MG3, BMP3 #### [facility] [address] [place] [address] Monocytes/100 WBC (Bld) 1 % Normal [facility] Comment on above: Performed By: #### H EMOG, MG3, BMP3 #### [facility] [address] [place] [address] Neutrophils/100 WBC (Bld) 74 % Normal [facility] Comment on above: Performed By: #### H EMOG, MG3, BMP3 #### [facility] [address] [place] [address] Cells Counted for Diff 100 Normal [facility] Comment on above: Performed By: #### H EMOG, MG3, BMP3 #### [facility] [address] [place] [address] Glucose, Body Fluidon 2019 Glucose, Body Fluid 82 mg/dL Normal No Range [facility] Comment on above: Performed By: #### H EMOG, MG3, BMP3 #### [facility] [address] [place] [address] Glucose, body fluidon 2019 Glucose, Body Fluid 82 mg/dL No Range [employer] KERI Gram stainon 10-10-2019 INR Coag (Bld) [Relative time] Many polymorphonuclear cells/lpf. Many mononuclear cells/lpf No organisms seen. Cytocentrifugation performed. Microscopic observation and enumeration of white blood cells should be confirmed by Cell Count with Differential. [email or web address] Test Performed by [place] [address] [place] [address] Specimen Source Comment:Body Fluid [employer] KERI Hemogram w/ Autodiffon 10-09 Abs Neutrophile Cnt 15.4 10*3/uL High 1.8-7.0 [facility] Comment on above: Performed By: #### H NGUYEN MG3, BMP3 #### [address] [place] [address] Basophils/100 WBC (Bld) 0.4 % Normal 0.0-2.0 [place] Comment on above: Performed By: #### H NGUYEN MG3, BMP3 #### [address] [place], [place] Eosinophils/100 WBC (Bld) 0.0 % Low 1.0-6.0 [place] Comment on above: Performed By: #### H NGUYEN MG3, BMP3 #### [address] Erythrocyte distribution width (RBC) [Ratio] 18.9 % High 11.5-14.5 [place] Comment on above: Performed By: #### Herman CEDILLO MG3, BMP3 #### [address] Granulocytes/100 WBC (Bld) 86.5 % High 40.0-80.0 [place] Comment on above: Performed By: #### H NGUYEN MG3, BMP3 #### [address] Hematocrit (Bld) [Volume fraction] 35.4 % Normal 35.0-47.0 [place] Comment on above: Performed By: #### H NGUYEN MG3, BMP3 #### [place] [address] [place] Hemoglobin (Bld) [Mass/Vol] 11.3 g/dL Low 11.7-16.0 [place], [place] Comment on above: Performed By: #### H NGUYEN MG3, BMP3 #### [address] [address] Lymphocytes/100 WBC (Bld) 6.0 % Low 20.0-40.0 [place] Comment on above: Performed By: #### H NGUYEN MG3, BMP3 #### [address] [place], [place] MCH (RBC) [Entitic mass] 26.7 pg Normal 26.0-34.0 [place] Comment on above: Performed By: #### H EMOG, MG3, BMP3 #### [address] [place], [place] MCHC (RBC) [Mass/Vol] 31.9 % Low 32.0-36.0 [place], [place] Comment on above: Performed By: #### H EMOG, MG3, BMP3 #### [address] MCV (RBC) [Entitic vol] 83.9 fL Normal 79.0-98.0 [place], [place] Comment on above: Performed By: #### H EMOPerla, MG3, BMP3 #### [address] Monocytes (Bld) [#/Vol] 1.3 10*3/uL High 0.0-0.8 [place] Comment on above: Performed By: #### H EMOPerla, MG3, BMP3 #### [address] Monocytes/100 WBC (Bld) 7.1 % Normal 2.0-10.0 [place], [place] Comment on above: Performed By: #### H EMOG, MG3, BMP3 #### [address] [place] Platelet mean volume (Bld) [Entitic vol] 8.3 fL Normal 7.4-10.4 [place] Comment on above: Performed By: #### H EMOG, MG3, BMP3 #### [address] Platelets (Bld) [#/Vol] 313 10*3/uL Normal 140-440 [place], [place] Comment on above: Performed By: #### H EMOG, MG3, BMP3 #### [facility] [address] [place], [place] RBC (Bld) [#/Vol] 4.22 10*6/uL Normal 3.80-5.20 [place], [place] Comment on above: Performed By: #### H EMOG, MG3, BMP3 #### [address] [place] WBC (Bld) [#/Vol] 17.9 10*3/uL High 3.6-10.7 [place] Comment on above: Performed By: #### H EMOG, MG3, BMP3 #### [address] [place], [place] Abs Baso Cnt 0.1 10*3/uL Normal 0.0-0.2 [facility] Comment on above: Performed By: #### H EMOG, MG3, BMP3 #### [address] [place] Abs Neutrophile Cnt 12.1 10*3/uL High 1.8-7.0 [facility] Comment on above: Performed By: #### H EMOPerla, MG3, BMP3 #### [address] [place] Basophils/100 WBC (Bld) 0.6 % Normal 0.0-2.0 [facility] Comment on above: Performed By: #### H EMOG, MG3, BMP3 #### [address] [place] Eosinophils (Bld) [#/Vol] 0.0 10*3/uL Normal 0.0-0.5 [facility] Comment on above: Performed By: #### H EMOG, MG3, BMP3 #### [address] Eosinophils/100 WBC (Bld) 0.2 % Low 1.0-6.0 [facility] Comment on above: Performed By: #### H EMOG, MG3, BMP3 #### [address] [place] Erythrocyte distribution width (RBC) [Ratio] 18.8 % High 11.5-14.5 [facility] Comment on above: Performed By: #### H EMOPerla, MG3, BMP3 #### [address] [place] Granulocytes/100 WBC (Bld) 81.1 % High 40.0-80.0 [facility] Comment on above: Performed By: #### H EMOG, MG3, BMP3 #### [address] [place] Hematocrit (Bld) [Volume fraction] 33.1 % Low 35.0-47.0 [facility] Comment on above: Performed By: #### H EMOG, MG3, BMP3 #### [address] [place] Hemoglobin (Bld) [Mass/Vol] 10.6 g/dL Low 11.7-16.0 [facility] Comment on above: Performed By: #### H EMOG, MG3, BMP3 #### [address] [place] Lymphocytes (Bld) [#/Vol] 1.1 10*3/uL Normal 1.0-4.3 [facility] Comment on above: Performed By: #### H EMOG, MG3, BMP3 #### [address] [place] Lymphocytes/100 WBC (Bld) 7.5 % Low 20.0-40.0 [facility] Comment on above: Performed By: #### H EMOG, MG3, BMP3 #### [address] [address] [place], [place] MCH (RBC) [Entitic mass] 27.2 pg Normal 26.0-34.0 [facility] Comment on above: Performed By: #### H EMOG, MG3, BMP3 #### [address] [place] MCHC (RBC) [Mass/Vol] 32.1 % Normal 32.0-36.0 [facility] Comment on above: Performed By: #### H EMOPerla, MG3, BMP3 #### [address] [place] MCV (RBC) [Entitic vol] 84.6 fL Normal 79.0-98.0 [facility] Comment on above: Performed By: #### H EMOPerla, MG3, BMP3 #### [address] [place] Monocytes (Bld) [#/Vol] 1.6 10*3/uL High 0.0-0.8 [facility] Comment on above: Performed By: #### H EMOPerla, MG3, BMP3 #### [address] [place] Monocytes/100 WBC (Bld) 10.6 % High 2.0-10.0 [facility] Comment on above: Performed By: #### H EMOG, MG3, BMP3 #### [address] [place] Platelet mean volume (Bld) [Entitic vol] 8.2 fL Normal 7.4-10.4 [facility] Comment on above: Performed By: #### H EMOG, MG3, BMP3 #### [address] [place] Platelets (Bld) [#/Vol] 277 10*3/uL Normal 140-440 [facility] Comment on above: Performed By: #### H EMOG, MG3, BMP3 #### [address] [place] RBC (Bld) [#/Vol] 3.91 10*6/uL Normal 3.80-5.20 [facility] Comment on above: Performed By: #### H EMOG, MG3, BMP3 #### [address] [place] WBC (Bld) [#/Vol] 15.0 10*3/uL High 3.6-10.7 [facility] Comment on above: Performed By: #### H EMOPerla, MG3, BMP3 #### [address] [place] Eosinophils (Bld) [#/Vol] 0.0 10*3/uL Normal 0.0-0.5 [place] Comment on above: Performed By: #### H EMOG, MG3, BMP3 #### [address] [place] Lymphocytes (Bld) [#/Vol] 1.1 10*3/uL Normal 1.0-4.3 [place] Comment on above: Performed By: #### H EMOPerla, MG3, BMP3 #### [address] [place] LDH, Body Fluidon 10-10-2019 LDH, Body Fluid 165 U/L Normal No Range [facility] Comment on above: Performed By: #### H EMOG, MG3, BMP3 #### [address] [address] [place], [place] Fluid Type Thoracentesis Normal [facility] Comment on above: Performed By: #### H EMOG, MG3, BMP3 #### [address] Lactate dehydrogenase, body fluidon 10-10-2019 LD, Fluid 165 U/L No Range [place] Sodium [Moles/Vol] Thoracentesis [place], [place] Lactic Acidon 10-10-2019 Lactate [Moles/Vol] 1.0 mmol/L Normal 0.7-2.0 [facility] Comment on above: Performed By: #### H EMOG, MG3, BMP3 #### [address] Lactic Acid, Plasmaon 2019 Lactate [Moles/Vol] 1 mmol/L 0.7 - 2 mmol/L [place] Test Performed by [place] [address] [place] Magnesiumon 10-10-2019 Magnesium [Mass/Vol] 1.6 mg/dL Normal 1.6-2.3 [facility] Comment on above: Performed By: #### H EMOG, MG3, BMP3 #### [address] [address] Magnesium [Mass/Vol] 1.6 mg/dL 1.6 - 2 .3 mg/dL [facility], [place] Test Performed by [employer] [facility], [address] [place] [address] [place], [place] Medical Cytologyon 0 Medical Cytology [facility] [id number] DEPARTMENT OF PATHOLOGY AND [facility] LABORATORY MEDICINE [address] [place] [address]. [place] [address] FINAL MEDICAL CYTOLOGY REPORT NAME: DORY BASURTO : 1955 64 [id number] LOCATION: [facility] T3 INPAT T301 PROCEDURE 10/10/2019 DATE: PHYSICIAN: NADIR MESSER MD RECEIVED DATE: 10/11/2019 ATTENDING: YEHUDA MACKENZIE MD REPORT DATE: 10/12/2019 COPIES TO: MARY MARLEY MD; GAEL NUNEZ MD; CECE ROME MD CLINICAL DATA: DIAGNOSIS NO MALIGNANT CELLS IDENTIFIED. FINDINGS CONSISTENT WITH ACUTE INFLAMMATORY PROCESS. SPECIMEN: PLEURAL FLUID, LEFT PROCEDURE(S): FLUID COLLECTION GROSS DESCRIPTION: 800 ml, yellow fluid, w/o cytolyt Materials Prepared & Examined: Cell Blocks . . . . . . . . . . . . 1 Monolayers . . . . . . . . . . . . 1 MRC Screened by JOSE CAMP M.D. The following statement applies to all immunohistochemistry, in situ hybridization, molecular studies, and immunofluorescence testing. The use of one or more reagents in the above tests is regulated as an analyte specific reagent (ASR). These tests were developed and their performance characteristics determined by the clinical laboratories of [facility]. They have not been cleared by the US Food and Drug Administration (FDA). The FDA has determined that such clearance or approval is not necessary. All the above immunostains were performed on paraffin embedded tissue. Appropriate positive and negative controls (where applicable) were run in parallel with the patient's specimen; these controls showed expected staining pattern, with acceptable intensity of staining. Immunohistochemical assays have not been validated on decalcified tissues. Results should be interpreted with caution given the raised possibility of false negativity on decalcified specimens. Case reviewed at [place] [address] [place] [address]. DEPARTMENT OF PATHOLOGY AND LABORATORY MEDICINE [place], [place] [address] Normal [facility] Otheron 10-10-2019 Test Performed by [facility], [address] [place] [id number] [place] [address] Procalcitoninon 10-10-2019 Interpretation See Below Normal [facility] Comment on above: Result Comment: PCT <0.50 = Low risk of severe sepsis and/or septic shock. PCT >2.00 = High risk of severe sepsis and/or septic shock. Performed By: #### H NGUYEN MG3, BMP3 #### [address] [address] [place] [address] Protein, Total Body Fluidon 10-10-2019 Protein,Total-Body Fld < 2.0 Normal No Range [facility] Comment on above: Performed By: #### H NGUYEN MG3, BMP3 #### [address] [address] [place] [address] [id number] 10-10-2019 SARS-CoV-2 SARS-CoV-2 --> Statu s: F Not Detected Expected Result: Not Detected _ Real-time, RT-PCR performed on the [employer] System by the [facility]. Negative results do not preclude SARS-CoV-2 infection and should not be used as the sole basis for treatment or other patient management decisions. This assay was developed by [employer] and distributed under an Emergency Use Authorization (EUA) granted by the FDA for the qualitative detection of SARS-CoV-2 nucleic acid. Results were determined from a pool consisting of specimens from additional patients. This test was modified, and its performance characteristics, showing minimal loss of sensitivity, have been validated by the [facility]. Approval is pending review by the U. S. Food and Drug Administration. If symptoms are severe and persist, testing a new specimen may be warranted. Additionally, IgG testing may be considered for patients more than 7-10 days post onset of symptoms. Expected Result: Not Detected _ Real-time, RT-PCR performed on the [employer] System by the [facility]. Negative results do not preclude SARS-CoV-2 infection and should not be used as the sole basis for treatment or other patient management decisions. This assay was developed by [employer] and distributed under an Emergency Use Authorization (EUA) granted by the FDA for the qualitative detection of SARS-CoV-2 nucleic acid. Results were determined from a pool consisting of specimens from additional patients. This test was modified, and its performance characteristics, showing minimal loss of sensitivity, have been validated by the [facility]. Approval is pending review by the U. S. Food and Drug Administration. If symptoms are severe and persist, testing a new specimen may be warranted. Additionally, IgG testing may be considered for patients more than 7-10 days post onset of symptoms. Normal [facility] Comment on above: Order Comment: Speci men Source Comment:Nasopharyngeal Swab Performed By: #### H EMOG, MG3, BMP3 #### [address] [address] Total Protein, Fluidon 10-09 Protein, body fluid <2.0 No Range g/dL [place], [place] Troponinon 10-10-2019 Troponin I.cardiac [Mass/Vol] 0.032 ng/mL 0 - 0.034 ng/mL [place], [place] Comment on above: . Test Performed by [facility], [facility] [place] [address] [facility] [place], [place] Troponin Ion 10-10-2019 Troponin I.cardiac [Mass/Vol] 0.032 ng/mL Normal 0.000-0.034 [facility] Comment on above: Result Comment: . Performed By: #### H EMOG, MG3, BMP3 #### [facility] [address] [place] [address] US GUIDE THORACENTESISon Ezio, [facility] Incoming Radiology Results From [facility] - 10/10/2019 3:46 PM EDT Patient Name: DORY BASURTO ---Ultrasound--- Exam Date/Time 10/10/2019 15:02:18 EDT Exam US Thora-Aspir Pleura w/ Image Ordering Physician MD MESSER ROBERT Accession Number [id number] CPT4 Codes 17940 (), 01612 () Reason For Exam pleural effusion whichever side is larger Report PROCEDURE: Ultrasound-guided thoracentesis Procedural Personnel Attending physician(s): Cece Rome MD. Advanced practice provider(s): None Indication: Pleural effusion Additional clinical history: None Complications: No immediate complications. IMPRESSION: Successful ultrasound-guided left thoracentesis with drainage of 900 milliliters of serous fluid. PROCEDURE SUMMARY: - Limited thoracic ultrasound - Ultrasound-guided thoracentesis - Additional procedure(s): None PROCEDURE DETAILS: Pre-procedure Consent: Informed consent for the procedure including risks, benefits and alternatives was obtained and time-out was performed prior to the procedure. Preparation: The site was prepared and draped using maximal sterile barrier technique including cutaneous antisepsis. Anesthesia/sedation None Limited thoracic ultrasound Limited thoracic ultrasound was performed using a curved transducer. A safe window for thoracentesis was identified. Moderate to large pleural effusion was seen on the side of aspiration. The contralateral side was not investigated. Thoracentesis Local anesthesia was administered. Ultrasound was used to pick a safe access site. A permanent image was stored. The pleural space was accessed and fluid return confirmed position. The fluid was drained. Catheter placed: 5F Yueh Closure The catheter was removed. A sterile bandage was applied. Post-drainage hemithorax findings: Small effusion Additional Details Additional description of procedure: None Equipment details: None Specimens removed: Pleural fluid Estimated blood loss (mL): Less than 10 Report Dictated on Workstation: [id number] --- Final --- Dictated: 10/10/2019 3:44 pm Dictating Physician: MD ROME JAMES Signed Date and Time: 10/10/2019 3:45 pm Signed by: MD ROME JAMES Transcribed Date and Time: 10/10/2019 3:44 [place], [place] Patient Name: DORY BASURTO ---Ultrasound--- Exam Date/Time 10/10/2019 15:02:18 EDT Exam US Thora-Aspir Pleura w/ Image Ordering Physician MD MESSER ROBERT Accession Number [id number] CPT4 Codes 89494 (), 38182 () Reason For Exam pleural effusion whichever side is larger Report PROCEDURE: Ultrasound-guided thoracentesis Procedural Personnel Attending physician(s): Cece Rome MD. Advanced practice provider(s): None Indication: Pleural effusion Additional clinical history: None Complications: No immediate complications. IMPRESSION: Successful ultrasound-guided left thoracentesis with drainage of 900 milliliters of serous fluid. PROCEDURE SUMMARY: - Limited thoracic ultrasound - Ultrasound-guided thoracentesis - Additional procedure(s): None PROCEDURE DETAILS: Pre-procedure Consent: Informed consent for the procedure including risks, benefits and alternatives was obtained and time-out was performed prior to the procedure. Preparation: The site was prepared and draped using maximal sterile barrier technique including cutaneous antisepsis. Anesthesia/sedation None Limited thoracic ultrasound Limited thoracic ultrasound was performed using a curved transducer. A safe window for thoracentesis was identified. Moderate to large pleural effusion was seen on the side of aspiration. The contralateral side was not investigated. Thoracentesis Local anesthesia was administered. Ultrasound was used to pick a safe access site. A permanent image was stored. The pleural space was accessed and fluid return confirmed position. The fluid was drained. Catheter placed: 5F Yueh Closure The catheter was removed. A sterile bandage was applied. Post-drainage hemithorax findings: Small effusion Additional Details Additional description of procedure: None Equipment details: None Specimens removed: Pleural fluid Estimated blood loss (mL): Less than 10 Report Dictated on Workstation: [id number] --- Final --- Dictated: 10/10/2019 3:44 pm Dictating Physician: MD ROME JAMES Signed Date and Time: 10/10/2019 3:45 pm Signed by: MD ROME JAMES Transcribed Date and Time: 10/10/2019 3:44 [place], [place] US Thora-Aspir Pleura w/ Yesenia geon 10-10-2019 [place] Thora-Aspir Pleura w/ Image Patient Name: DORY BASURTO Ultrasound Exam Date/Time 10/10/2019 15:02:18 EDT Exam US Thora-Aspir Pleura w/ Image Ordering Physician MD MESSER ROBERT Accession Number [id number] CPT4 Codes 65070 (), 70916 () Reason For Exam pleural effusion whichever side is larger Report PROCEDURE: Ultrasound-guided thoracentesis Procedural Personnel Attending physician(s): Cece Rome MD. Advanced practice provider(s): None Indication: Pleural effusion Additional clinical history: None Complications: No immediate complications. IMPRESSION: Successful ultrasound-guided left thoracentesis with drainage of 900 milliliters of serous fluid. PROCEDURE SUMMARY: - Limited thoracic ultrasound - Ultrasound-guided thoracentesis - Additional procedure(s): None PROCEDURE DETAILS: Pre-procedure Consent: Informed consent for the procedure including risks, benefits and alternatives was obtained and time-out was performed prior to the procedure. Preparation: The site was prepared and draped using maximal sterile barrier technique including cutaneous antisepsis. Anesthesia/sedation None Limited thoracic ultrasound Limited thoracic ultrasound was performed using a curved transducer. A safe window for thoracentesis was identified. Moderate to large pleural effusion was seen on the side of aspiration. The contralateral side was not investigated. Thoracentesis Local anesthesia was administered. Ultrasound was used to pick a safe access site. A permanent image was stored. The pleural space was accessed and fluid return confirmed position. The fluid was drained. Catheter placed: 5F Yueh Closure The catheter was removed. A sterile bandage was applied. Post-drainage hemithorax findings: Small effusion Additional Details Additional description of procedure: None Equipment details: None Specimens removed: Pleural fluid Estimated blood loss (mL): Less than 10 Report Dictated on Workstation: [id number] Final Dictated: 10/10/2019 3:44 pm Dictating Physician: MD ROME JAMES Signed Date and Time: 10/10/2019 3:45 pm Signed by: MD ROME JAMES Transcribed Date and Time: 10/10/2019 3:44 Normal [facility] [employer] [facility] XR ABDOMEN (KUB) (SINGLE AP VIEW)on 10-10-2019 Patient Name: DORY BASURTO ---Diagnostic Radiology--- Exam Date/Time 10/10/2019 15:14:46 EDT Exam CR Abdomen AP Ordering Physician MD ARANA MAZEN E Accession Number [id number] CPT4 Codes 75126 () Reason For Exam follow up ileus Report SINGLE VIEW ABDOMEN CLINICAL INDICATION: follow up ileus TECHNIQUE: Single view abdomen x-ray COMPARISON: 10/07/2019 FINDINGS: NG tube has been withdrawn since the previous study, tip is about the level of the GE junction. Mild gaseous distention of colon and to a lesser extent small bowel in the pelvis a little more prominent than on the prior study. IMPRESSION: 1. Suspected ileus, a little worse than on the prior study. NG tube tip now about the level of the GE junction. Report Dictated on --- Final --- Dictated: 10/10/2019 8:41 pm Dictating Physician: MD OLMEDO JOHN R Signed Date and Time: 10/10/2019 8:43 pm Signed by: MD OLMEDO JOHN R Transcribed Date and Time: 10/10/2019 8:41 [place], [place] Ezio, [facility] Incoming Radiology Results From [facility] - 10/10/2019 8:44 PM EDT Patient Name: DORY BASURTO ---Diagnostic Radiology--- Exam Date/Time 10/10/2019 15:14:46 EDT Exam CR Abdomen AP Ordering Physician MD ARANA MAZEN E Accession Number [id number] CPT4 Codes 98136 () Reason For Exam follow up ileus Report SINGLE VIEW ABDOMEN CLINICAL INDICATION: follow up ileus TECHNIQUE: Single view abdomen x-ray COMPARISON: 10/07/2019 FINDINGS: NG tube has been withdrawn since the previous study, tip is about the level of the GE junction. Mild gaseous distention of colon and to a lesser extent small bowel in the pelvis a little more prominent than on the prior study. IMPRESSION: 1. Suspected ileus, a little worse than on the prior study. NG tube tip now about the level of the GE junction. Report Dictated on --- Final --- Dictated: 10/10/2019 8:41 pm Dictating Physician: MD OLMEDO JOHN R Signed Date and Time: 10/10/2019 8:43 pm Signed by: MD OLMEDO JOHN R Transcribed Date and Time: 10/10/2019 8:41 [place], [place] XR CHEST PORTABLEon 10-10-19 Ezio, [facility] Incoming Radiology Results From [facility] - 10/10/2019 6:04 PM EDT Patient Name: DORY BASURTO ---Diagnostic Radiology--- Exam Date/Time 10/10/2019 17:24:30 EDT Exam CR Chest Portable Ordering Physician YEHUDA CARSON Accession Number [id number] CPT4 Codes 55971 () Reason For Exam shortness of breath Report Examination: Portable Chest, 1634 hours 10/10/2019. Comparison: 10/09/2019. Reason For Study: Shortness of breath. Findings: Cardiac silhouette is enlarged. No mediastinal abnormality is observed. Lungs are diminished in volume. Bilateral perihilar and apical interstitial opacities are redemonstrated. Bibasilar opacities obscure the diaphragm and blunts the costophrenic angles. Osseous structures appear intact. There is a left convex curvature of the thoracic spine. Support Devices: None. Conclusion(s): 1. Interstitial edema superimposed on asymmetric pneumonitis, predominating on the left. 2. Bilateral pleural effusions and basilar atelectasis, worse on the right. 3. Cardiomegaly. Report Dictated on --- Final --- Dictated: 10/10/2019 5:53 pm Dictating Physician: MD BOSTON B NELSON Signed Date and Time: 10/10/2019 6:03 pm Signed by: MD BOSTON B NELSON Transcribed Date and Time: 10/10/2019 5:53 [place], [place] Patient Name: DORY BASURTO ---Diagnostic Radiology--- Exam Date/Time 10/10/2019 17:24:30 EDT Exam CR Chest Portable Ordering Physician YEHUDA CARSON Accession Number [id number] CPT4 Codes 82048 () Reason For Exam shortness of breath Report Examination: Portable Chest, 1634 hours 10/10/2019. Comparison: 10/09/2019. Reason For Study: Shortness of breath. Findings: Cardiac silhouette is enlarged. No mediastinal abnormality is observed. Lungs are diminished in volume. Bilateral perihilar and apical interstitial opacities are redemonstrated. Bibasilar opacities obscure the diaphragm and blunts the costophrenic angles. Osseous structures appear intact. There is a left convex curvature of the thoracic spine. Support Devices: None. Conclusion(s): 1. Interstitial edema superimposed on asymmetric pneumonitis, predominating on the left. 2. Bilateral pleural effusions and basilar atelectasis, worse on the right. 3. Cardiomegaly. Report Dictated on --- Final --- Dictated: 10/10/2019 5:53 pm Dictating Physician: MD BOSTON B NELSON Signed Date and Time: 10/10/2019 6:03 pm Signed by: MD DARVIN, Butch CURTIS Transcribed Date and Time: 10/10/2019 5:53 [place], [place] pH, body fluidon 10-10-2019 pH, Fluid 7.650 None Available NA [place] Sodium [Moles/Vol] thora [place] Test Performed by [facility], [address] [place] [id number] [place] [address] pH,Misc Body Fluidon 020 pH,Misc 7.650 Normal None Available [facility] Comment on above: Performed By: #### H EMOG, MG3, BMP3 #### [address] [address] [place] [address] Fluid Type thora Normal [facility] Comment on above: Performed By: #### H EMOG, MG3, BMP3 #### [address] [address] [place] [address] BRAIN NATRIURETIC PEPTIDEon 10-09-2019 Interpretation and review of laboratory results Abnormal [place], [place] Natriuretic peptide B (Bld) [Mass/Vol] 1267 pg/mL High 0 - 125 pg/mL [place] Test Performed by [facility], [address] [place] [id number] [place] [address] CBC auto differentialon 09-21 Absolute Baso # 0.1 10*3/uL 0 - 0.2 10*3/uL [place] Absolute Neut # 11.1 10*3/uL High 1.8 - 7 10*3/uL [place] Basophils/100 WBC (Bld) 0.5 % 0 - 2 % [place] Eosinophils (Bld) [#/Vol] 0.1 10*3/uL 0 - 0.5 10*3/uL [place] Eosinophils/100 WBC (Bld) 0.7 % Low 1 - 6 % [place] Erythrocyte distribution width (RBC) [Ratio] 18.9 % High 11.5 - 14.5 % [place] Granulocytes/100 WBC (Bld) 79.1 % 40 - 80 % [place] Hematocrit (Bld) [Volume fraction] 32.0 % Low 35 - 47 % [place] Hemoglobin (Bld) [Mass/Vol] 10.3 g/dL Low 11.7 - 16 g/dL [place] Interpretation and review of laboratory results Abnormal [place] Lymphocytes (Bld) [#/Vol] 1.1 10*3/uL 1 - 4.3 10*3/uL [place] Lymphocytes/100 WBC (Bld) 8.1 % Low 20 - 40 % [place] MCH (RBC) [Entitic mass] 26.8 pg 26 - 34 pg [place] MCHC (RBC) [Mass/Vol] 32.1 % 32 - 36 % [place], [place] MCV (RBC) [Entitic vol] 83.6 fL 79 - 98 fL [place], [place] Monocytes (Bld) [#/Vol] 1.6 10*3/uL High 0 - 0.8 10*3/uL [place] Monocytes/100 WBC (Bld) 11.6 % High 2 - 10 % [place] Platelet mean volume (Bld) [Entitic vol] 7.8 fL 7.4 - 10.4 fL [place] Platelets (Bld) [#/Vol] 249 10*3/uL 140 - 440 10*3/uL [place] RBC (Bld) [#/Vol] 3.83 10*6/uL 3.8 - 5.2 10*6/uL [place] WBC (Bld) [#/Vol] 14.1 10*3/uL High 3.6 - 10.7 10*3/uL [place] [facility] [id number] [place] [address] CR Chest Portableon 10-09-19 20 CR Chest Portable Patient Name: DORY BASURTO Diagnostic Radiology Exam Date/Time 10/09/2019 13:05:28 EDT Exam CR Chest Portable Ordering Physician BREANNA CURTIS, NIVIA C Accession Number [id number] CPT4 Codes 27227 () Reason For Exam hypoxia Report Portable chest Clinical: Hypoxia COMPARISON: October 07, 2019 Portable frontal views of the chest are provided. Heart size is stable. There is atherosclerotic disease of the aorta. Feeding tube remains in position. Endotracheal tube has been removed since previous. There is pulmonary vascular congestion and interstitial edema with multifocal areas of patchy edema/infiltrate bilaterally. Small right-sided pleural effusion and moderate size layering left-sided pleural effusion are present. No sizable pneumothorax is identified. No mediastinal shift. Report Dictated on Workstation: [id number] Final Dictated: 10/09/2019 3:39 pm Dictating Physician: MD MERCADO BRIAN Signed Date and Time: 10/09/2019 3:41 pm Signed by: MD MERCADO BRIAN Transcribed Date and Time: 10/09/2019 3:39 Normal [facility] Calcium,Ionizedon 10-09-2019 Ionized Ca,Measured 4.00 mg/dL Low 4.30-5.20 [facility] Comment on above: Performed By: #### H EMOG, MG3, BMP3 #### [address] [id number] pH, Ionized Calcium 7.43 Normal 7.31-7.46 [facility] Comment on above: Performed By: #### H EMOG, MG3, BMP3 #### [address] [address] [place] [address] Comp Metabolic Panelon 10-08 ALP [Catalytic activity/Vol] 112 U/L Normal 38-126 [facility] Comment on above: Performed By: #### H EMOG, MG3, BMP3 #### [facility] [address] [place] [address] ALT [Catalytic activity/Vol] 20 U/L Normal 0-34 [facility] Comment on above: Result Comment: The ALT test is performed by an updated assay method. Please note that the reference intervals have been changed and are now sex specific. Performed By: #### H EMOG, MG3, BMP3 #### [facility] [address] [place], [place] Calcium [Mass/Vol] 7.1 mg/dL Low 8.4-10.4 [facility] Comment on above: Performed By: #### H EMOPerla MG3, BMP3 #### [facility] [address] [place], [place] Glucose [Mass/Vol] 93 mg/dL Normal 70-100 [facility] Comment on above: Performed By: #### H EMOG MG3, BMP3 #### [address] [address] [address] [place], [place] Protein [Mass/Vol] 4.4 g/dL Low 6.3-8.2 [facility] Comment on above: Performed By: #### H EMOPeral MG3, BMP3 #### [address] [address] [address] [place], [place] Urea nitrogen [Mass/Vol] mg/dL Low 7-20 [facility] Comment on above: Performed By: #### H EMOG, MG3, BMP3 #### [address] [address] [address] [place], [place] Anion gap [Moles/Vol] 5 Normal [facility] Comment on above: Performed By: #### H EMOG, MG3, BMP3 #### [address] [address] [address] [place], [place] AST [Catalytic activity/Vol] 30 U/L Normal 15-46 [facility] Comment on above: Performed By: #### H EMOG, MG3, BMP3 #### [address] [address] [address] [place], [place] Bilirubin [Mass/Vol] 0.8 mg/dL Normal 0.2-1.3 [facility] Comment on above: Performed By: #### H EMOG, MG3, BMP3 #### [address] [address] [address] [place], [place] CO2 [Moles/Vol] 23 mmol/L Normal 22-30 [facility] Comment on above: Performed By: #### H EMOG, MG3, BMP3 #### [address] [address] [place], [place] Creatinine [Mass/Vol] 0.31 mg/dL Low 0.52-1.25 [facility] Comment on above: Performed By: #### H MG NGUYEN3 BMP3 #### [address] [address] [place], [place] GFR/1.73 sq M predicted among blacks MDRD (S/P/Bld) [Vol rate/Area] mL/min/{1.73_m2} Normal >60 [facility] Comment on above: Performed By: #### H NGUYEN MG3, BMP3 #### [address] [address] [place], [place] GFR/1.73 sq M predicted among non-blacks MDRD (S/P/Bld) [Vol rate/Area] mL/min/{1.73_m2} Normal >60 [facility] Comment on above: Result Comment: KDIG O guidelines provide the following GFR categories: Stage GFR(ml/min/1.73 m2) Terms G1 >=90 Normal or high G2 60-89 Mildly decreased* G3a 45-59 Mildly to moderately decreased G3b 30-44 Moderately to severely decreased G4 15-29 Severely decreased G5 <15 Kidney failure *Relative to young adult level. In the absence of evidence of kidney damage, neither GFR category G1 nor G2 fulfill the criteria for CKD. The CKD-EPI equation is validated in individuals 18 years of age and older. Currently the best equation for estimating glomerular filtration rate (GFR) from serum creatinine in children is the Bedside Oshea equation. It is less accurate in patients with extremes of muscle mass, restriction of dietary protein, ingestion of creatine, extra-renal metabolism of creatinine, or treatment with medications that affect renal tubular creatinine secretion. Performed By: #### H NGUYEN MG3, BMP3 #### [address] [address] [place], [place] Chloride [Moles/Vol] 108 mmol/L High 98-107 [facility] Comment on above: Performed By: #### H NGUYEN MG3, BMP3 #### [address] [address] [place], [place] Potassium [Moles/Vol] 3.5 mmol/L Normal 3.5-5.1 [facility] Comment on above: Performed By: #### H EMOG, MG3, BMP3 #### [facility] [address] [place], [place] Sodium [Moles/Vol] 136 mmol/L Normal 135-145 [facility] Comment on above: Performed By: #### H EMOG, MG3, BMP3 #### [facility] [address] [place], [place] Albumin [Mass/Vol] 2.0 g/dL Low 3.5-5.0 [facility] Comment on above: Performed By: #### H EMOG, MG3, BMP3 #### [facility] [address] [place], [place] Comprehensive Metabolic Pane val 10-09-2019 Albumin [Mass/Vol] 2.0 g/dL Low 3.5 - 5 g/dL [place], [place] ALP [Catalytic activity/Vol] 112 U/L 38 - 126 U/L [place] ALT [Catalytic activity/Vol] 20 U/L 0 - 34 U/L [place] Comment on above: The ALT test is perf ormed by an updated assay method. Please note that the reference intervals have been changed and are now sex specific. Anion gap [Moles/Vol] 5 mmol/L [place], [place] AST [Catalytic activity/Vol] 30 U/L 15 - 46 U/L [place] Bilirubin Ql (U) 0.8 mg/dL 0.2 - 1.3 mg/dL [place] Calcium [Mass/Vol] 7.1 mg/dL Low 8.4 - 10. 4 mg/dL [place] Chloride [Moles/Vol] 108 mmol/L High 98 - 10 7 mmol/L [place] CO2 [Moles/Vol] 23 mmol/L 22 - 30 mmol/L [place] Creatinine [Mass/Vol] 0.31 mg/dL Low 0.52 - 1.25 mg/dL [place] EGFR IF NonAfrican [place]an >90.0 >60 mL/min [place] Comment on above: KDIGO guidelines pro vide the following GFR categories: Stage GFR(ml/min/1.73 m2) Terms G1 >=90 Normal or high G2 60-89 Mildly decreased* G3a 45-59 Mildly to moderately decreased G3b 30-44 Moderately to severely decreased G4 15-29 Severely decreased G5 <15 Kidney failure *Relative to young adult level. In the absence of evidence of kidney damage, neither GFR category G1 nor G2 fulfill the criteria for CKD. The CKD-EPI equation is validated in individuals 18 years of age and older. Currently the best equation for estimating glomerular filtration rate (GFR) from serum creatinine in children is the Bedside Oshea equation. It is less accurate in patients with extremes of muscle mass, restriction of dietary protein, ingestion of creatine, extra-renal metabolism of creatinine, or treatment with medications that affect renal tubular creatinine secretion. GFR/1.73 sq M predicted among blacks MDRD (S/P/Bld) [Vol rate/Area] mL/min/{1.73_m2} >60 mL/min [place] Glucose [Mass/Vol] 93 mg/dL 70 - 100 mg/dL [place] Potassium [Moles/Vol] 3.5 mmol/L 3.5 - 5.1 mmol/L [place] Protein [Mass/Vol] 4.4 g/dL Low 6.3 - 8.2 g/dL [place] Sodium [Moles/Vol] 136 mmol/L 135 - 145 mmol/L [place] Urea nitrogen [Mass/Vol] mg/dL Low 7 - 20 mg/dL [place] ECHO Complete 2D W Doppler W Coloron 10-09-2019 [facility], [facility] Incoming Cardiology Results From [facility] - 10/09/2019 9:57 AM EDT TRANSTHORACIC ECHOCARDIOGRAM PATIENT: Dory Basurto STUDY DATE: 10/09/2019 : 1955 AGE: 64 HT/WT: 170.2 cm (67 47.2 kg (103.8 in) lb) GENDER: F BP: 115 / 64 LOCATION: [facility] PATIENT Inpatient main STATUS: *ORDERING PHYSICIAN: * Tierney White *READING PHYSICIAN: * Nikolai *MOTTLER OPERATOR: * Sherry Hylton DO, FS, [facility] RCS, CCT ----- INDICATIONS: ?CHF. ----- CONCLUSIONS SUMMARY: 1. Left ventricle: Systolic function is normal by the biplane method of disks. The estimated ejection fraction is 60%. Doppler parameters are consistent with abnormal left ventricular relaxation (grade 1 diastolic dysfunction). 2. Right ventricle: The cavity size is mildly dilated. Systolic function is low normal. Right ventricular systolic pressure is within the normal range. 3. No significant valve disease. 4. Aorta: The aorta is normal. 5. Pericardium, extracardiac: There is no pericardial effusion. There is a large left pleural effusion. ----- STUDY DATA: Complete transthoracic echocardiogram. Procedure: Image quality was adequate. The study was technically limited due to restricted patient mobility, body habitus, arrhythmia, and supine position. Intravenous imaging enhancement (Definity) was administered to opacify the chamber. Definity lot #: [id number]. M-mode, complete 2D, complete spectral Doppler, and color flow Doppler images were acquired and archived for permanent storage and are available for subsequent review. Study status: Routine. Patient status: Inpatient. ----- FINDINGS LEFT VENTRICLE: The cavity size is normal. Wall thickness is normal. Systolic function is normal by the biplane method of disks. The estimated ejection fraction is 60%. There are no regional wall motion abnormalities. Doppler parameters are consistent with abnormal left ventricular relaxation (grade 1 diastolic dysfunction). E/e' average: 8.3 RIGHT VENTRICLE: The cavity size is mildly dilated. Systolic function is low normal. Right ventricular systolic pressure is within the normal range. VENTRICULAR SEPTUM: There is no evidence of a ventricular septal defect. LEFT ATRIUM: The atrium is normal in size. RIGHT ATRIUM: The atrium is normal in size. ATRIAL SEPTUM: Color Doppler shows no shunt. MITRAL VALVE: Structurally normal valve. Doppler: There is no regurgitation. AORTIC VALVE: Not well visualized. Structurally normal valve. Probably trileaflet. Doppler: There is no regurgitation. The peak systolic gradient is 6 mm Hg. The peak systolic velocity is 1.2 m/sec. TRICUSPID VALVE: Structurally normal valve. Doppler: There is trivial, less than 1+ regurgitation. PULMONIC VALVE: Structurally normal valve. Doppler: There is no regurgitation. AORTA: The aorta is normal. PULMONARY ARTERY: Main pulmonary artery: Normal. PERICARDIUM: There is no pericardial effusion. There is a large left pleural effusion. SYSTEMIC VEINS: Inferior vena cava: The vessel is normal. The IVC collapses by greater than 50% with inspiration. ----- Measurements Value Reference Aortic root ID 3.2 cm <3.8 Aortic root ID, STJ, ED (L) 1.6 cm 2.0 - 3.2 Aortic root ID/bsa, STJ, ED 1.1 cm/m^2 1.1 - 1.9 Value Reference Ascending aorta ID, A-P, S 3.2 cm Ascending aorta ID/bsa, A-P, S 2.2 cm/m^2 Left ventricle Value Reference LV ID, ED 4.0 cm 3.8 - 5.2 LV ID, ES 2.2 cm 2.2 - 3.5 LV ID/bsa, ED 2.7 cm/m^2 2.3 - 3.1 LV ID/bsa, ES 1.5 cm/m^2 1.3 - 2.1 LV PW thickness, ED 0.9 cm 0.6 - 0.9 LV PW/LV ID ratio, ED 0.23 LV wall mass 112 g 66 - 150 LV wall mass/bsa 76 g/m^2 44 - 88 Stroke volume/bsa, 1-p A2C 39.6 ml/m^2 LV end-diastolic volume, 1-p A4C 79 ml 48 - 140 LV end-systolic volume, 1-p A4C 26 ml 12 - 60 LV end-diastolic volume, 2-p 98 ml 46 - 106 LV end-systolic volume, 2-p 40 ml 14 - 42 LV ejection fraction, 2-p 60 % 54 - 74 LV E/e', lateral 8.1 LV E/e', medial 8.5 LV E/e', average 8.3 Ventricular septum Value Reference IVS thickness, ED 0.9 cm 0.6 - 0.9 LVOT Value Reference LVOT ID, A-P 2.2 cm LVOT mean velocity, S 0.7 m/sec LVOT peak gradient, S 5 mm Hg Stroke volume (SV), LVOT DP 89 ml Stroke index (SV/bsa), LVOT DP 60 ml/m^2 Aortic valve Value Reference Aortic valve peak velocity, S 1.2 m/sec Aortic peak gradient, S 6 mm Hg Left atrium Value Reference LA volume/bsa, ES, 2-p 18 ml/m^2 16 - 34 Mitral valve Value Reference Mitral E-wave peak velocity 0.6 m/sec Mitral A-wave peak velocity 1 m/sec Mitral deceleration time 94 ms Mitral E/A ratio, peak 0.6 Right atrium Value Reference RA area, ES, A4C 11 cm^2 10 - 18 Systemic veins Value Reference Estimated RAP 3 mm Hg Right ventricle Value Reference RV ID, minor axis, ED, A4C base (H) 4.4 cm 2.5 - 4.1 RV ID, minor axis, ED, A4C mid (H) 3.7 cm 1.9 - 3.5 TAPSE, 2D (L) 1.6 cm 1.7 - 3.1 RV s', lateral 11.0 cm/sec 6.0 - 13.4 Legend: (L) and (H) topher values outside specified reference range. Electronically signed by Nikolai Javier DO, FSVM, FACC 10/09/2019 09:57 Prior Signatures: [place] TRANSTHORACIC ECHOCARDIOGRAM PATIENT: Dory Basurto STUDY DATE: 10/09/2019 : 1955 AGE: 64 HT/WT: 170.2 cm (67 47.2 kg (103.8 in) lb) GENDER: F BP: 115 / 64 LOCATION: [facility] PATIENT Inpatient main STATUS: *ORDERING PHYSICIAN: * Tierney White *READING PHYSICIAN: * Nikolai *MOTTLER OPERATOR: * Sherry Hylton DO, FSVM, REGAN RCS, CCT ----- INDICATIONS: ?CHF. ----- CONCLUSIONS SUMMARY: 1. Left ventricle: Systolic function is normal by the biplane method of disks. The estimated ejection fraction is 60%. Doppler parameters are consistent with abnormal left ventricular relaxation (grade 1 diastolic dysfunction). 2. Right ventricle: The cavity size is mildly dilated. Systolic function is low normal. Right ventricular systolic pressure is within the normal range. 3. No significant valve disease. 4. Aorta: The aorta is normal. 5. Pericardium, extracardiac: There is no pericardial effusion. There is a large left pleural effusion. ----- STUDY DATA: Complete transthoracic echocardiogram. Procedure: Image quality was adequate. The study was technically limited due to restricted patient mobility, body habitus, arrhythmia, and supine position. Intravenous imaging enhancement (Definity) was administered to opacify the chamber. Definity lot #: [id number]. M-mode, complete 2D, complete spectral Doppler, and color flow Doppler images were acquired and archived for permanent storage and are available for subsequent review. Study status: Routine. Patient status: Inpatient. ----- FINDINGS LEFT VENTRICLE: The cavity size is normal. Wall thickness is normal. Systolic function is normal by the biplane method of disks. The estimated ejection fraction is 60%. There are no regional wall motion abnormalities. Doppler parameters are consistent with abnormal left ventricular relaxation (grade 1 diastolic dysfunction). E/e' average: 8.3 RIGHT VENTRICLE: The cavity size is mildly dilated. Systolic function is low normal. Right ventricular systolic pressure is within the normal range. VENTRICULAR SEPTUM: There is no evidence of a ventricular septal defect. LEFT ATRIUM: The atrium is normal in size. RIGHT ATRIUM: The atrium is normal in size. ATRIAL SEPTUM: Color Doppler shows no shunt. MITRAL VALVE: Structurally normal valve. Doppler: There is no regurgitation. AORTIC VALVE: Not well visualized. Structurally normal valve. Probably trileaflet. Doppler: There is no regurgitation. The peak systolic gradient is 6 mm Hg. The peak systolic velocity is 1.2 m/sec. TRICUSPID VALVE: Structurally normal valve. Doppler: There is trivial, less than 1+ regurgitation. PULMONIC VALVE: Structurally normal valve. Doppler: There is no regurgitation. AORTA: The aorta is normal. PULMONARY ARTERY: Main pulmonary artery: Normal. PERICARDIUM: There is no pericardial effusion. There is a large left pleural effusion. SYSTEMIC VEINS: Inferior vena cava: The vessel is normal. The IVC collapses by greater than 50% with inspiration. ----- Measurements Value Reference Aortic root ID 3.2 cm <3.8 Aortic root ID, STJ, ED (L) 1.6 cm 2.0 - 3.2 Aortic root ID/bsa, STJ, ED 1.1 cm/m^2 1.1 - 1.9 Value Reference Ascending aorta ID, A-P, S 3.2 cm Ascending aorta ID/bsa, A-P, S 2.2 cm/m^2 Left ventricle Value Reference LV ID, ED 4.0 cm 3.8 - 5.2 LV ID, ES 2.2 cm 2.2 - 3.5 LV ID/bsa, ED 2.7 cm/m^2 2.3 - 3.1 LV ID/bsa, ES 1.5 cm/m^2 1.3 - 2.1 LV PW thickness, ED 0.9 cm 0.6 - 0.9 LV PW/LV ID ratio, ED 0.23 LV wall mass 112 g 66 - 150 LV wall mass/bsa 76 g/m^2 44 - 88 Stroke volume/bsa, 1-p A2C 39.6 ml/m^2 LV end-diastolic volume, 1-p A4C 79 ml 48 - 140 LV end-systolic volume, 1-p A4C 26 ml 12 - 60 LV end-diastolic volume, 2-p 98 ml 46 - 106 LV end-systolic volume, 2-p 40 ml 14 - 42 LV ejection fraction, 2-p 60 % 54 - 74 LV E/e', lateral 8.1 LV E/e', medial 8.5 LV E/e', average 8.3 Ventricular septum Value Reference IVS thickness, ED 0.9 cm 0.6 - 0.9 LVOT Value Reference LVOT ID, A-P 2.2 cm LVOT mean velocity, S 0.7 m/sec LVOT peak gradient, S 5 mm Hg Stroke volume (SV), LVOT DP 89 ml Stroke index (SV/bsa), LVOT DP 60 ml/m^2 Aortic valve Value Reference Aortic valve peak velocity, S 1.2 m/sec Aortic peak gradient, S 6 mm Hg Left atrium Value Reference LA volume/bsa, ES, 2-p 18 ml/m^2 16 - 34 Mitral valve Value Reference Mitral E-wave peak velocity 0.6 m/sec Mitral A-wave peak velocity 1 m/sec Mitral deceleration time 94 ms Mitral E/A ratio, peak 0.6 Right atrium Value Reference RA area, ES, A4C 11 cm^2 10 - 18 Systemic veins Value Reference Estimated RAP 3 mm Hg Right ventricle Value Reference RV ID, minor axis, ED, A4C base (H) 4.4 cm 2.5 - 4.1 RV ID, minor axis, ED, A4C mid (H) 3.7 cm 1.9 - 3.5 TAPSE, 2D (L) 1.6 cm 1.7 - 3.1 RV s', lateral 11.0 cm/sec 6.0 - 13.4 Legend: (L) and (H) topher values outside specified reference range. Electronically signed by Nikolai Javier DO, JOSE, [facility] 10/09/2019 09:57 Prior Signatures: [facility] ID EKG 12 [place] 10-09-2019 [facility] Test Date: 2019 Pat Name: Dory Basurto Department: [facility] Room: [facility] Gender: F Doctor Of Naprapathy: [facility] [place] : 1955 Requested By: SIVAN CARLSON Order Number: [id number] Reading MD: Víctor Nava Measurements Intervals [place] Rate: 172 P: 31 VT: 158 QRS: 55 QRSD: 49 T: QT: 400 QTc: 677 Interpretive Statements sinus tachycardia marked Low voltage, all leads PAC's Electronically Signed On 10-09-2019 6:47:09 EDT by Víctor Nava [facility] Incoming [facility] - 10/09/2019 6:48 AM EDT [facility] Test Date: 2019 Pat Name: Dory Basurto Department: [facility] Room: 1538 Gender: F Doctor Of Naprapathy: [facility] [place] : 1955 Requested By: SIVAN CARLSON Order Number: [id number] Reading MD: Víctor Nava Measurements Intervals [place] Rate: 172 P: 31 VT: 158 QRS: 55 QRSD: 49 T: QT: 400 QTc: 677 Interpretive Statements sinus tachycardia marked Low voltage, all leads PAC's Electronically Signed On 10-09-2019 6:47:09 EDT by Víctor aNva [facility], [facility] Incoming Cardiology [facility] - 10/09/2019 6:47 AM EDT [facility] Test Date: 2019 Pat Name: Dory Basurto Department: 1AT3 Room: 1538 Gender: F Doctor Of Naprapathy: [facility] [place] : 1955 Requested By: SIVAN CARLSON Order Number: [id number] Reading MD: Víctor Nava Measurements Intervals [place] Rate: 105 P: 69 VT: 116 QRS: 71 QRSD: 97 T: 86 QT: 341 QTc: 451 Interpretive Statements Sinus tachycardia Atrial premature complexes marked Low voltage, extremity and precordial leads Electronically Signed On 10-09-2019 6:46:02 EDT by [facility] Test Date: 2019 Pat Name: Dory Basurto Department: 1AT3 Room: 1538 Gender: F Doctor Of Naprapathy: [facility] [place] : 1955 Requested By: SIVAN CARLSON Order Number: [id number] Reading MD: Víctor Nava Measurements Intervals [place] Rate: 105 P: 69 VT: 116 QRS: 71 QRSD: 97 T: 86 QT: 341 QTc: 451 Interpretive Statements Sinus tachycardia Atrial premature complexes marked Low voltage, extremity and precordial leads Electronically Signed On 10-09-2019 6:46:02 EDT by [place] Echo Complete w/wo Contrasto n 10-09-2019 Echo Complete w/wo Contrast Patient Name: DORY BASURTO Ultrasound Exam Date/Time 10/09/2019 09:33:48 EDT Exam Echo Complete w/wo Contrast Ordering Physician TIERNEY WHITE Accession Number [id number] Reason For Exam ?CHF Report TRANSTHORACIC ECHOCARDIOGRAM PATIENT: Dory Basurto STUDY DATE: 10/09/2019 : 1955 AGE: 64 HT/WT: 170.2 cm (67 47.2 kg (103.8 in) lb) GENDER: F BP: 115 / 64 LOCATION: [facility] PATIENT Inpatient main STATUS: *ORDERING PHYSICIAN: * Tierney White *READING PHYSICIAN: Domenico Menchaca *MOTTLER OPERATOR: * Sherry Hylton DO, FS, [facility] RCS, CCT ----- INDICATIONS: ?CHF. ----- CONCLUSIONS SUMMARY: 1. Left ventricle: Systolic function is normal by the biplane method of disks. The estimated ejection fraction is 60%. Doppler parameters are consistent with abnormal left ventricular relaxation (grade 1 diastolic dysfunction). 2. Right ventricle: The cavity size is mildly dilated. Systolic function is low normal. Right ventricular systolic pressure is within the normal range. 3. No significant valve disease. 4. Aorta: The aorta is normal. 5. Pericardium, extracardiac: There is no pericardial effusion. There is a large left pleural effusion. ----- STUDY DATA: Complete transthoracic echocardiogram. Procedure: Image quality was adequate. The study was technically limited due to restricted patient mobility, body habitus, arrhythmia, and supine position. Intravenous imaging enhancement (Definity) was administered to opacify the chamber. Definity lot #: [id number]. M-mode, complete 2D, complete spectral Doppler, and color flow Doppler images were acquired and archived for permanent storage and are available for subsequent review. Study status: Routine. Patient status: Inpatient. ----- FINDINGS LEFT VENTRICLE: The cavity size is normal. Wall thickness is normal. Systolic function is normal by the biplane method of disks. The estimated ejection fraction is 60%. There are no regional wall motion abnormalities. Doppler parameters are consistent with abnormal left ventricular relaxation (grade 1 diastolic dysfunction). E/e' average: 8.3 RIGHT VENTRICLE: The cavity size is mildly dilated. Systolic function is low normal. Right ventricular systolic pressure is within the normal range. VENTRICULAR SEPTUM: There is no evidence of a ventricular septal defect. LEFT ATRIUM: The atrium is normal in size. RIGHT ATRIUM: The atrium is normal in size. ATRIAL SEPTUM: Color Doppler shows no shunt. MITRAL VALVE: Structurally normal valve. Doppler: There is no regurgitation. AORTIC VALVE: Not well visualized. Structurally normal valve. Probably trileaflet. Doppler: There is no regurgitation. The peak systolic gradient is 6 mm Hg. The peak systolic velocity is 1.2 m/sec. TRICUSPID VALVE: Structurally normal valve. Doppler: There is trivial, less than 1+ regurgitation. PULMONIC VALVE: Structurally normal valve. Doppler: There is no regurgitation. AORTA: The aorta is normal. PULMONARY ARTERY: Main pulmonary artery: Normal. PERICARDIUM: There is no pericardial effusion. There is a large left pleural effusion. SYSTEMIC VEINS: Inferior vena cava: The vessel is normal. The IVC collapses by greater than 50% with inspiration. ----- Measurements Value Reference Aortic root ID 3.2 cm <3.8 Aortic root ID, STJ, ED (L) 1.6 cm 2.0 - 3.2 Aortic root ID/bsa, STJ, ED 1.1 cm/m^2 1.1 - 1.9 Value Reference Ascending aorta ID, A-P, S 3.2 cm Ascending aorta ID/bsa, A-P, S 2.2 cm/m^2 Left ventricle Value Reference LV ID, ED 4.0 cm 3.8 - 5.2 LV ID, ES 2.2 cm 2.2 - 3.5 LV ID/bsa, ED 2.7 cm/m^2 2.3 - 3.1 LV ID/bsa, ES 1.5 cm/m^2 1.3 - 2.1 LV PW thickness, ED 0.9 cm 0.6 - 0.9 LV PW/LV ID ratio, ED 0.23 LV wall mass 112 g 66 - 150 LV wall mass/bsa 76 g/m^2 44 - 88 Stroke volume/bsa, 1-p A2C 39.6 ml/m^2 LV end-diastolic volume, 1-p A4C 79 ml 48 - 140 LV end-systolic volume, 1-p A4C 26 ml 12 - 60 LV end-diastolic volume, 2-p 98 ml 46 - 106 LV end-systolic volume, 2-p 40 ml 14 - 42 LV ejection fraction, 2-p 60 % 54 - 74 LV E/e', lateral 8.1 LV E/e', medial 8.5 LV E/e', average 8.3 Ventricular septum Value Reference IVS thickness, ED 0.9 cm 0.6 - 0.9 LVOT Value Reference LVOT ID, A-P 2.2 cm LVOT mean velocity, S 0.7 m/sec LVOT peak gradient, S 5 mm Hg Stroke volume (SV), LVOT DP 89 ml Stroke index (SV/bsa), LVOT DP 60 ml/m^2 Aortic valve Value Reference Aortic valve peak velocity, S 1.2 m/sec Aortic peak gradient, S 6 mm Hg Left atrium Value Reference LA volume/bsa, ES, 2-p 18 ml/m^2 16 - 34 Mitral valve Value Reference Mitral E-wave peak velocity 0.6 m/sec Mitral A-wave peak velocity 1 m/sec Mitral deceleration time 94 ms Mitral E/A ratio, peak 0.6 Right atrium Value Reference RA area, ES, A4C 11 cm^2 10 - 18 Systemic veins Value Reference Estimated RAP 3 mm Hg Right ventricle Value Reference RV ID, minor axis, ED, A4C base (H) 4.4 cm 2.5 - 4.1 RV ID, minor axis, ED, A4C mid (H) 3.7 cm 1.9 - 3.5 TAPSE, 2D (L) 1.6 cm 1.7 - 3.1 RV s', lateral 11.0 cm/sec 6.0 - 13.4 Legend: (L) and (H) topher values outside specified reference range. Electronically signed by Nikolai Javier DO, FS, [facility] 10/09/2019 09:57 Prior Signatures: Final Dictated: 10/09/2019 9:57 am Dictating Physician: DO JAVIER JOSEPH Signed Date and Time: 10/09/2019 9:57 am Signed by: DO JAVIER JOSEPH Normal [facility] Hemogram w/ Autodiffon 10-08 Abs Baso Cnt 0.1 10*3/uL Normal 0.0-0.[address] [facility] Comment on above: Performed By: #### H NGUYEN MG3, BMP3 #### [facility] [address] [place] [address] Abs Neutrophile Cnt 11.1 10*3/uL High 1.8-7.0 [facility] Comment on above: Performed By: #### H NGUYEN MG3, BMP3 #### [address] [id number] Basophils/100 WBC (Bld) 0.5 % Normal 0.0-2.0 [facility] Comment on above: Performed By: #### H NGUYEN MG3, BMP3 #### [address] [place], [place] Eosinophils (Bld) [#/Vol] 0.1 10*3/uL Normal 0.0-0.5 [facility] Comment on above: Performed By: #### H EMOPerla, MG3, BMP3 #### [place] [address] [place], [place] Eosinophils/100 WBC (Bld) 0.7 % Low 1.0-6.0 [facility] Comment on above: Performed By: #### H EMOG, MG3, BMP3 #### [place] [address] [place], [place] Erythrocyte distribution width (RBC) [Ratio] 18.9 % High 11.5-14.5 [facility] Comment on above: Performed By: #### H EMOG, MG3, BMP3 #### [address] Granulocytes/100 WBC (Bld) 79.1 % Normal 40.0-80.0 [facility] Comment on above: Performed By: #### H EMOPerla, MG3, BMP3 #### [place] [address] [place], [place] Hematocrit (Bld) [Volume fraction] 32.0 % Low 35.0-47.0 [facility] Comment on above: Performed By: #### H EMOG, MG3, BMP3 #### [place] [address] [place], [place] Hemoglobin (Bld) [Mass/Vol] 10.3 g/dL Low 11.7-16.0 [facility] Comment on above: Performed By: #### H EMOG, MG3, BMP3 #### [address] Lymphocytes (Bld) [#/Vol] 1.1 10*3/uL Normal 1.0-4.3 [facility] Comment on above: Performed By: #### H EMOG, MG3, BMP3 #### [address] Lymphocytes/100 WBC (Bld) 8.1 % Low 20.0-40.0 [facility] Comment on above: Performed By: #### H NGUYEN MG3, BMP3 #### [place] [address] [place], [place] MCH (RBC) [Entitic mass] 26.8 pg Normal 26.0-34.0 [facility] Comment on above: Performed By: #### H NGUYEN MG3, BMP3 #### [place] [address] [place], [place] MCHC (RBC) [Mass/Vol] 32.1 % Normal 32.0-36.0 [facility] Comment on above: Performed By: #### Herman CEDILLO MG3, BMP3 #### [place] [address] [place], [place] MCV (RBC) [Entitic vol] 83.6 fL Normal 79.0-98.0 [facility] Comment on above: Performed By: #### Herman CEDILLO MG3, BMP3 #### [place] [address] [place], [place] Monocytes (Bld) [#/Vol] 1.6 10*3/uL High 0.0-0.8 [facility] Comment on above: Performed By: #### H NGUYEN, MG3, BMP3 #### [place] [address] [place], [place] Monocytes/100 WBC (Bld) 11.6 % High 2.0-10.0 [facility] Comment on above: Performed By: #### H NGUYEN, MG3, BMP3 #### [place] [address] [place], [place] Platelet mean volume (Bld) [Entitic vol] 7.8 fL Normal 7.4-10.4 [facility] Comment on above: Performed By: #### H EMOPerla, MG3, BMP3 #### [place] [address] [place], [place] Platelets (Bld) [#/Vol] 249 10*3/uL Normal 140-440 [facility] Comment on above: Performed By: #### H EMOG, MG3, BMP3 #### [place] [address] [place], [place] RBC (Bld) [#/Vol] 3.83 10*6/uL Normal 3.80-5.20 [facility] Comment on above: Performed By: #### H EMOG, MG3, BMP3 #### [place] [address] [place], [place] WBC (Bld) [#/Vol] 14.1 10*3/uL High 3.6-10.7 [facility] Comment on above: Performed By: #### H EMOG, MG3, BMP3 #### [place] [address] [place], [place] Ionized Calciumon 10-09-2019 Interpretation and review of laboratory results Abnormal [place], [place] Ionized Ca 4.00 mg/dL Low 4.3 - 5.2 mg/dL [place], [place] pH (Bld) 7.43 [pH] [place], [place] Test Performed by [id number] [place] [address] Magnesiumon 10-09-2019 Magnesium [Mass/Vol] 1.5 mg/dL Low 1.6-2.3 [facility] Comment on above: Performed By: #### H EMOG, MG3, BMP3 #### [place] [address] [place], [place] Magnesium [Mass/Vol] 1.5 mg/dL Low 1.6 - 2 .3 mg/dL [place], [place] NT pro BNPon 10-09-2019 Natriuretic peptide B (Bld) [Mass/Vol] 1267 pg/mL High 0-125 [facility] Comment on above: Performed By: #### H EMOG, MG3, BMP3 #### [address] Otheron 10-09-2019 Interpretation and review of laboratory results Abnormal [place], [place] Test Performed by [id number] [place] [address] Phosphoruson 10-09-2019 Phosphate [Mass/Vol] 2.8 mg/dL Normal 2.5-4.5 [facility] Comment on above: Performed By: #### H CANDELARIA CEDILLO, BMP3 #### [facility] [address] [place], [place] Phosphate [Mass/Vol] 2.8 mg/dL 2.5 - 4 .5 mg/dL [place], [place] Prothrombin Timeon 0 INR Coag (PPP) [Relative time] 1.5 High 0.9-1.1 [facility] Comment on above: Result Comment: Mark mmended Anticoagulant Therapy: SEE BELOW ----- INR of 2.0 - 3.0 : - Prophylaxis of Venous Thrombosis (high-risk surgery) - Treatment of Venous Thrombosis - Treatment of Pulmonary Embolism (Includes tissue heart valves, Acute Myocardial Infarction to prevent systemic embolism, Valvular Heart Disease, and Atrial Fibrillation) ----- INR of 2.5 - 3.5 : - Mechanical Prosthetic Valves (high risk) - If oral anticoagulant therapy is used to prevent Myocardial Infarction Performed By: #### H MG NGUYEN3, BMP3 #### [facility] [address] [place], [place] PT Coag (PPP) [Time] 16.1 s High 9.0-12.0 [facility] Comment on above: Result Comment: . Performed By: #### CANDELARIA HEDRICK, BMP3 #### [facility] [address] [place], [place] Protime-INRon 10-09-2019 INR Coag (PPP) [Relative time] 1.5 {INR} High [place], [place] Comment on above: Recommended Anticoag ulant Therapy: SEE BELOW ----- INR of 2.0 - 3.0 : - Prophylaxis of Venous Thrombosis (high-risk surgery) - Treatment of Venous Thrombosis - Treatment of Pulmonary Embolism (Includes tissue heart valves, Acute Myocardial Infarction to prevent systemic embolism, Valvular Heart Disease, and Atrial Fibrillation) ----- INR of 2.5 - 3.5 : - Mechanical Prosthetic Valves (high risk) - If oral anticoagulant therapy is used to prevent Myocardial Infarction Interpretation and review of laboratory results Abnormal [place], [place] PT Coag (PPP) [Time] 16.1 s High 9 - 12 s [place], [place] Comment on above: . Test Performed by [facility], [address] [place] [address] [place], [place] XR CHEST PORTABLEon 10-09-19 Patient Name: DORY BASURTO ---Diagnostic Radiology--- Exam Date/Time 10/09/2019 13:05:28 EDT Exam CR Chest Portable Ordering Physician BREANNA CURTIS JILL C Accession Number [id number] CPT4 Codes 87946 () Reason For Exam hypoxia Report Portable chest Clinical: Hypoxia COMPARISON: October 07, 2019 Portable frontal views of the chest are provided. Heart size is stable. There is atherosclerotic disease of the aorta. Feeding tube remains in position. Endotracheal tube has been removed since previous. There is pulmonary vascular congestion and interstitial edema with multifocal areas of patchy edema/infiltrate bilaterally. Small right-sided pleural effusion and moderate size layering left-sided pleural effusion are present. No sizable pneumothorax is identified. No mediastinal shift. Report Dictated on Workstation: [id number] --- Final --- Dictated: 10/09/2019 3:39 pm Dictating Physician: MD MERCADO BRIAN Signed Date and Time: 10/09/2019 3:41 pm Signed by: MD MERCADO BRIAN Transcribed Date and Time: 10/09/2019 3:39 [place], [place] Ezio, [facility] Incoming Radiology Results From [facility] - 10/09/2019 3:42 PM EDT Patient Name: DORY BASURTO ---Diagnostic Radiology--- Exam Date/Time 10/09/2019 13:05:28 EDT Exam CR Chest Portable Ordering Physician BREANNA CURTIS JILL C Accession Number [id number] CPT4 Codes 00096 () Reason For Exam hypoxia Report Portable chest Clinical: Hypoxia COMPARISON: October 07, 2019 Portable frontal views of the chest are provided. Heart size is stable. There is atherosclerotic disease of the aorta. Feeding tube remains in position. Endotracheal tube has been removed since previous. There is pulmonary vascular congestion and interstitial edema with multifocal areas of patchy edema/infiltrate bilaterally. Small right-sided pleural effusion and moderate size layering left-sided pleural effusion are present. No sizable pneumothorax is identified. No mediastinal shift. Report Dictated on --- Final --- Dictated: 10/09/2019 3:39 pm Dictating Physician: MD MERCADO BRIAN Signed Date and Time: 10/09/2019 3:41 pm Signed by: MD MERCADO BRIAN Transcribed Date and Time: 10/09/2019 3:39 [place], [place] CBC auto differentialon 09-21 Absolute Baso # 0.0 10*3/uL 0 - 0.2 10*3/uL [place], [place] Absolute Neut # 13.4 10*3/uL High 1.8 - 7 10*3/uL [place] Basophils/100 WBC (Bld) 0.2 % 0 - 2 % [place] Eosinophils (Bld) [#/Vol] 0.0 10*3/uL 0 - 0.5 10*3/uL [place] Eosinophils/100 WBC (Bld) 0.1 % Low 1 - 6 % [place] Erythrocyte distribution width (RBC) [Ratio] 18.1 % High 11.5 - 14.5 % [place] Granulocytes/100 WBC (Bld) 81.9 % High 40 - 80 % [place] Hematocrit (Bld) [Volume fraction] 31.7 % Low 35 - 47 % [place] Hemoglobin (Bld) [Mass/Vol] 10.3 g/dL Low 11.7 - 16 g/dL [place] Lymphocytes (Bld) [#/Vol] 1.2 10*3/uL 1 - 4.3 10*3/uL [place] Lymphocytes/100 WBC (Bld) 7.2 % Low 20 - 40 % [place] MCH (RBC) [Entitic mass] 27.3 pg 26 - 34 pg [place] MCHC (RBC) [Mass/Vol] 32.6 % 32 - 36 % [place], [place] MCV (RBC) [Entitic vol] 83.7 fL 79 - 98 fL [place] Monocytes (Bld) [#/Vol] 1.7 10*3/uL High 0 - 0.8 10*3/uL [place] Monocytes/100 WBC (Bld) 10.6 % High 2 - 10 % [place] Platelet mean volume (Bld) [Entitic vol] 7.7 fL 7.4 - 10.4 fL [place], [place] Platelets (Bld) [#/Vol] 266 10*3/uL 140 - 440 10*3/uL [place] RBC (Bld) [#/Vol] 3.79 10*6/uL Low 3.8 - 5.2 10*6/uL [place] WBC (Bld) [#/Vol] 16.3 10*3/uL High 3.6 - 10.7 10*3/uL [place], [place] Calcium,Ionizedon 2019 Ionized Ca,Measured 4.20 mg/dL Low 4.30-5.20 [facility] Comment on above: Result Comment: This sample was received in the lab on ice and/or analysis was delayed beyond the recommended 30 minutes. Low temperatures cause artefactual increases in pO2. Delay in analysis at room temperature can cause artefactual decreases in pO2, and sO2, and pH with increase in pCO2. It is recommended that results be correlated clinically and the sample be recollected and analyzed promptly if clinically indicated. Performed By: #### H CANDELARIA CEDILLO BMP3 #### [facility] [address] [place], [place] pH, Ionized Calcium 7.45 Normal 7.31-7.46 [facility] Comment on above: Performed By: #### H CANDELARIA CEDILLO BMP3 #### [employer] [facility] [address] [place], [place] Comp Metabolic Panelon 10-07 Calcium [Mass/Vol] 7.4 mg/dL Low 8.4-10.4 [facility] Comment on above: Performed By: #### H CANDELARIA CEDILLO BMP3 #### [facility] [address] [place], [place] Glucose [Mass/Vol] 106 mg/dL High 70-100 [facility] Comment on above: Performed By: #### H EMOG, MG3, BMP3 #### [place] [address] [place] [place], [place] ALP [Catalytic activity/Vol] 112 U/L Normal 38-126 [facility] Comment on above: Result Comment: Slightly hemolysed, interpret with caution. Performed By: #### H EMOG, MG3, BMP3 #### [place] [address] [place], [place] ALT [Catalytic activity/Vol] 23 U/L Normal 0-34 [facility] Comment on above: Result Comment: The ALT test is performed by an updated assay method. Please note that the reference intervals have been changed and are now sex specific. Performed By: #### H EMOG, MG3, BMP3 #### [place] [address] [place], [place] Anion gap [Moles/Vol] 3 Normal [facility] Comment on above: Performed By: #### H EMOG, MG3, BMP3 #### [place] [address] [address], [place] AST [Catalytic activity/Vol] 42 U/L Normal 15-46 [facility] Comment on above: Result Comment: Slightly hemolysed, interpret with caution. Performed By: #### H EMOG, MG3, BMP3 #### [place] [address] [address] [place], [place] Bilirubin [Mass/Vol] 0.7 mg/dL Normal 0.2-1.3 [facility] Comment on above: Performed By: #### H EMOG, MG3, BMP3 #### [place] [address] [address], [place] CO2 [Moles/Vol] 24 mmol/L Normal 22-30 [facility] Comment on above: Performed By: #### H EMOG, MG3, BMP3 #### [place] [address] [address], [place] Creatinine [Mass/Vol] 0.27 mg/dL Low 0.52-1.25 [facility] Comment on above: Performed By: #### H MG NGUYEN3, BMP3 #### [facility] [address] [place], [place] GFR/1.73 sq M predicted among blacks MDRD (S/P/Bld) [Vol rate/Area] mL/min/{1.73_m2} Normal >60 [facility] Comment on above: Performed By: #### H NGUYEN MG3, BMP3 #### [facility] [address] [place], [place] GFR/1.73 sq M predicted among non-blacks MDRD (S/P/Bld) [Vol rate/Area] mL/min/{1.73_m2} Normal >60 [facility] Comment on above: Result Comment: KDIG O guidelines provide the following GFR categories: Stage GFR(ml/min/1.73 m2) Terms G1 >=90 Normal or high G2 60-89 Mildly decreased* G3a 45-59 Mildly to moderately decreased G3b 30-44 Moderately to severely decreased G4 15-29 Severely decreased G5 <15 Kidney failure *Relative to young adult level. In the absence of evidence of kidney damage, neither GFR category G1 nor G2 fulfill the criteria for CKD. The CKD-EPI equation is validated in individuals 18 years of age and older. Currently the best equation for estimating glomerular filtration rate (GFR) from serum creatinine in children is the Bedside Oshea equation. It is less accurate in patients with extremes of muscle mass, restriction of dietary protein, ingestion of creatine, extra-renal metabolism of creatinine, or treatment with medications that affect renal tubular creatinine secretion. Performed By: #### H MG NGUYEN3, BMP3 #### [facility] [address] [place], [place] Protein [Mass/Vol] 4.5 g/dL Low 6.3-8.2 [facility] Comment on above: Performed By: #### H MG NGUYEN3, BMP3 #### [facility] [address] [place], [place] Urea nitrogen [Mass/Vol] mg/dL Low 7-20 [facility] Comment on above: Performed By: #### H EMOG, MG3, BMP3 #### [facility] [address] [place], [place] Chloride [Moles/Vol] 108 mmol/L High 98-107 [facility] Comment on above: Performed By: #### H EMOG, MG3, BMP3 #### [facility] [address] [place], [place] Potassium [Moles/Vol] 3.7 mmol/L Normal 3.5-5.1 [facility] Comment on above: Result Comment: Slightly hemolysed, interpret with caution. Performed By: #### H EMOG, MG3, BMP3 #### [facility] [address] [place], [place] Sodium [Moles/Vol] 135 mmol/L Normal 135-145 [facility] Comment on above: Performed By: #### H EMOG, MG3, BMP3 #### [facility] [address] [place], [place] Albumin [Mass/Vol] 2.1 g/dL Low 3.5-5.0 [facility] Comment on above: Performed By: #### H EMOG, MG3, BMP3 #### [place] [address] [address] [place], [place] Comprehensive Metabolic Pane val 2019 Albumin [Mass/Vol] 2.1 g/dL Low 3.5 - 5 g/dL [place], [place] ALP [Catalytic activity/Vol] 112 U/L 38 - 126 U/L [place], [place] Comment on above: Slightly hemolysed, interpret with caution. ALT [Catalytic activity/Vol] 23 U/L 0 - 34 U/L [place], [place] Comment on above: The ALT test is perf ormed by an updated assay method. Please note that the reference intervals have been changed and are now sex specific. Anion gap [Moles/Vol] 3 mmol/L [place], [place] AST [Catalytic activity/Vol] 42 U/L 15 - 46 U/L [place], [place] Comment on above: Slightly hemolysed, interpret with caution. Bilirubin Ql (U) 0.7 mg/dL 0.2 - 1.3 mg/dL [place] Calcium [Mass/Vol] 7.4 mg/dL Low 8.4 - 10. 4 mg/dL [place] Chloride [Moles/Vol] 108 mmol/L High 98 - 10 7 mmol/L [place] CO2 [Moles/Vol] 24 mmol/L 22 - 30 mmol/L [place] Creatinine [Mass/Vol] 0.27 mg/dL Low 0.52 - 1.25 mg/dL [place], [place] EGFR IF NonAfrican [place]an >90.0 >60 mL/min [place], [place] Comment on above: KDIGO guidelines pro vide the following GFR categories: Stage GFR(ml/min/1.73 m2) Terms G1 >=90 Normal or high G2 60-89 Mildly decreased* G3a 45-59 Mildly to moderately decreased G3b 30-44 Moderately to severely decreased G4 15-29 Severely decreased G5 <15 Kidney failure *Relative to young adult level. In the absence of evidence of kidney damage, neither GFR category G1 nor G2 fulfill the criteria for CKD. The CKD-EPI equation is validated in individuals 18 years of age and older. Currently the best equation for estimating glomerular filtration rate (GFR) from serum creatinine in children is the Bedside Oshea equation. It is less accurate in patients with extremes of muscle mass, restriction of dietary protein, ingestion of creatine, extra-renal metabolism of creatinine, or treatment with medications that affect renal tubular creatinine secretion. GFR/1.73 sq M predicted among blacks MDRD (S/P/Bld) [Vol rate/Area] mL/min/{1.73_m2} >60 mL/min [place], [place] Glucose [Mass/Vol] 106 mg/dL High 70 - 100 mg/dL [place] Potassium [Moles/Vol] 3.7 mmol/L 3.5 - 5.1 mmol/L [place] Comment on above: Slightly hemolysed, interpret with caution. Protein [Mass/Vol] 4.5 g/dL Low 6.3 - 8.2 g/dL [place] Sodium [Moles/Vol] 135 mmol/L 135 - 145 mmol/L [place] Urea nitrogen [Mass/Vol] mg/dL Low 7 - 20 mg/dL [facility] Culture, Blood 1on 0 Blood Culture, Routine No growth at 5 days. [facility] Test Performed by [facility], [address] [place] [id number] Specimen Source Comment:Blood [facility] Culture, Blood 2on 0 Blood Culture, Routine No growth at 5 days. [facility] Test Performed by [facility], [address] [place] [id number] Specimen Source Comment:Blood [facility] Hemogram w/ Autodiffon 10-07 Abs Baso Cnt 0.0 10*3/uL Normal 0.0-0.[address] [facility] Comment on above: Performed By: #### H EMOG, MG3, BMP3 #### [address] Abs Neutrophile Cnt 13.4 10*3/uL High 1.8-7.0 [facility] Comment on above: Performed By: #### H EMOG, MG3, BMP3 #### [address] Basophils/100 WBC (Bld) 0.2 % Normal 0.0-2.0 [facility] Comment on above: Performed By: #### H EMOG, MG3, BMP3 #### [address] Eosinophils (Bld) [#/Vol] 0.0 10*3/uL Normal 0.0-0.5 [facility] Comment on above: Performed By: #### H EMOG, MG3, BMP3 #### [address] Eosinophils/100 WBC (Bld) 0.1 % Low 1.0-6.0 [facility] Comment on above: Performed By: #### H EMOG, MG3, BMP3 #### [address] Erythrocyte distribution width (RBC) [Ratio] 18.1 % High 11.5-14.5 [facility] Comment on above: Performed By: #### H MG NGUYEN3, BMP3 #### [place] [address] [address] [place], [place] Granulocytes/100 WBC (Bld) 81.9 % High 40.0-80.0 [facility] Comment on above: Performed By: #### Herman CEDILLO MG3, BMP3 #### [place] [address] [address] [place] Hematocrit (Bld) [Volume fraction] 31.7 % Low 35.0-47.0 [facility] Comment on above: Performed By: #### MG FLORIDALMA3, BMP3 #### [place] [address] Hemoglobin (Bld) [Mass/Vol] 10.3 g/dL Low 11.7-16.0 [facility] Comment on above: Performed By: #### H NGUYEN MG3, BMP3 #### [place] [address] [address] Lymphocytes (Bld) [#/Vol] 1.2 10*3/uL Normal 1.0-4.3 [facility] Comment on above: Performed By: #### Herman CEDILLO MG3, BMP3 #### [place] [address] Lymphocytes/100 WBC (Bld) 7.2 % Low 20.0-40.0 [facility] Comment on above: Performed By: #### H NGUYEN MG3, BMP3 #### [place] [address] [address] MCH (RBC) [Entitic mass] 27.3 pg Normal 26.0-34.0 [facility] Comment on above: Performed By: #### H NGUYEN MG3, BMP3 #### [place] [address] [place] MCHC (RBC) [Mass/Vol] 32.6 % Normal 32.0-36.0 [facility] Comment on above: Performed By: #### H EMOG, MG3, BMP3 #### [place] [address] [address] MCV (RBC) [Entitic vol] 83.7 fL Normal 79.0-98.0 [facility] Comment on above: Performed By: #### H EMOG, MG3, BMP3 #### [place] [address] [address] [place] Monocytes (Bld) [#/Vol] 1.7 10*3/uL High 0.0-0.8 [facility] Comment on above: Performed By: #### H EMOPelra, MG3, BMP3 #### [place] [address] [place], [place] Monocytes/100 WBC (Bld) 10.6 % High 2.0-10.0 [facility] Comment on above: Performed By: #### H EMOPerla, MG3, BMP3 #### [place] [address] [place], [place] Platelet mean volume (Bld) [Entitic vol] 7.7 fL Normal 7.4-10.4 [facility] Comment on above: Performed By: #### H EMOPerla, MG3, BMP3 #### [address] Platelets (Bld) [#/Vol] 266 10*3/uL Normal 140-440 [facility] Comment on above: Performed By: #### H EMOPerla, MG3, BMP3 #### [place] [address] [address] [place] RBC (Bld) [#/Vol] 3.79 10*6/uL Low 3.80-5.20 [facility] Comment on above: Performed By: #### H EMOG, MG3, BMP3 #### [address] WBC (Bld) [#/Vol] 16.3 10*3/uL High 3.6-10.7 [facility] Comment on above: Performed By: #### H EMOG, MG3, BMP3 #### [address] [phone] Ionized Calciumon 2019 Ionized Ca 4.20 mg/dL Low 4.3 - 5.2 mg/dL [place], [place] Comment on above: This sample was rece ived in the lab on ice and/or analysis was delayed beyond the recommended 30 minutes. Low temperatures cause artefactual increases in pO2. Delay in analysis at room temperature can cause artefactual decreases in pO2, and sO2, and pH with increase in pCO2. It is recommended that results be correlated clinically and the sample be recollected and analyzed promptly if clinically indicated. pH (Bld) 7.45 [pH] [place], [place] Magnesiumon 2019 Magnesium [Mass/Vol] 1.7 mg/dL Normal 1.6-2.3 [facility] Comment on above: Result Comment: Slightly hemolysed, interpret with caution. Performed By: #### H NGUYEN MG3, BMP3 #### [address] [phone] Magnesium [Mass/Vol] 1.7 mg/dL 1.6 - 2 .3 mg/dL [place], [place] Comment on above: Slightly hemolysed, interpret with caution. Otheron 2019 Interpretation and review of laboratory results Abnormal [place], [place] Test Performed by [id number] [place] [address] Interpretation and review of laboratory results Abnormal [place] Test Performed by [id number] [place] [address] Phosphoruson 2019 Phosphate [Mass/Vol] 2.0 mg/dL Low 2.5-4.5 [facility] Comment on above: Result Comment: Slightly hemolysed, interpret with caution. Performed By: #### H NGUYEN MG3, BMP3 #### [address] [phone] Phosphate [Mass/Vol] 2.0 mg/dL Low 2.5 - 4 .5 mg/dL [place] Comment on above: Slightly hemolysed, interpret with caution. Prothrombin Timeon 0 INR Coag (PPP) [Relative time] 1.4 High 0.9-1.1 [facility] Comment on above: Result Comment: Mark mmended Anticoagulant Therapy: SEE BELOW ----- INR of 2.0 - 3.0 : - Prophylaxis of Venous Thrombosis (high-risk surgery) - Treatment of Venous Thrombosis - Treatment of Pulmonary Embolism (Includes tissue heart valves, Acute Myocardial Infarction to prevent systemic embolism, Valvular Heart Disease, and Atrial Fibrillation) ----- INR of 2.5 - 3.5 : - Mechanical Prosthetic Valves (high risk) - If oral anticoagulant therapy is used to prevent Myocardial Infarction Performed By: #### H CANDELARIA CEDILLO, BMP3 #### [facility] [address] [phone] PT Coag (PPP) [Time] 15.3 s High 9.0-12.0 [facility] Comment on above: Result Comment: . Performed By: #### H CANDELARIA CEDILLO, BMP3 #### [facility] [employer] [address] [place] [phone] [facility] 2019 INR Coag (PPP) [Relative time] 1.4 {INR} [place], [place] Comment on above: Recommended Anticoag ulant Therapy: SEE BELOW ----- INR of 2.0 - 3.0 : - Prophylaxis of Venous Thrombosis (high-risk surgery) - Treatment of Venous Thrombosis - Treatment of Pulmonary Embolism (Includes tissue heart valves, Acute Myocardial Infarction to prevent systemic embolism, Valvular Heart Disease, and Atrial Fibrillation) ----- INR of 2.5 - 3.5 : - Mechanical Prosthetic Valves (high risk) - If oral anticoagulant therapy is used to prevent Myocardial Infarction Interpretation and review of laboratory results Abnormal [place], [place] PT Coag (PPP) [Time] 15.3 s High 9 - 12 s [place], [place] Comment on above: . Test Performed by [facility], [address] [place] [id number] [place], [place] Arterial Blood Gaseson 10-06 CO2 [Moles/Vol] 22.4 mmol/L Low 23.0-27.0 [facility] Comment on above: Performed By: #### P T, LIPA4, LFT3, PCAL #### [place] [address] [address], [place] HCO3 (Bld) [Moles/Vol] 21.5 mmol/L Normal 21.0-25.0 [facility] Comment on above: Performed By: #### P T, LIPA4, LFT3, PCAL #### [place] [address] [place], [place] Hemoglobin (Bld) [Mass/Vol] 11.8 g/dL Normal [facility] Comment on above: Performed By: #### P T, LIPA4, LFT3, PCAL #### [place] [address] [place], [place] Oxygen (Bld) [Partial pressure] 97.3 mm[Hg] Normal 80.0-100.0 [facility] Comment on above: Performed By: #### P T, LIPA4, LFT3, PCAL #### [place] [address] [address] [place] Oxygen saturation in Blood 97.5 % Normal 95.0-100.0 [facility] Comment on above: Performed By: #### P T, LIPA4, LFT3, PCAL #### [address] pCO2 26.2 mm[Hg] Low 35.0-45.0 [facility] Comment on above: Performed By: #### P T, LIPA4, LFT3, PCAL #### [place] [address] [address] [place] pH (Bld) 7.533 High 7.350-7.450 [facility] Comment on above: Performed By: #### P T, LIPA4, LFT3, PCAL #### [address] Std Base Excess 0.0 mmol/L Normal -3.0-3.0 [facility] Comment on above: Performed By: #### P T, LIPA4, LFT3, PCAL #### [facility] [address] [place] [address] FIO2 40% Normal [facility] Comment on above: Performed By: #### P T, LIPA4, LFT3, PCAL #### [address] [phone] BLOOD GAS, ARTERIALon 2019 Base Excess, Arterial 0.0 mmol/L -3 - 3 mmol/L [place] HCO3, Arterial 21.5 mmol/L 21 - 25 mmol/L [place] Hemoglobin (Bld) [Mass/Vol] 11.8 g/dL [facility] [place] Interpretation and review of laboratory results Abnormal [place] Oxygen saturation in Blood 97.5 % 95 - 100 % [place] pCO2, Arterial 26.2 mm[Hg] Low 35 - 45 mm[Hg] [place] pH, Arterial 7.533 [place] pO2, Arterial 97.3 mm[Hg] 80 - 100 mm[Hg] [place] Sodium [Moles/Vol] 40% [place] TCO2, Arterial 22.4 mmol/L Low 23 - 27 mmol/L [place] Test Performed by [facility], [address] [place] [id number] [place] CBC auto differentialon 09-21 Absolute Baso # 0.0 10*3/uL 0 - 0.2 10*3/uL [place] Absolute Neut # 9.0 10*3/uL High 1.8 - 7 10*3/uL [place] Basophils/100 WBC (Bld) 0.2 % 0 - 2 % [place] Eosinophils (Bld) [#/Vol] 0.0 10*3/uL 0 - 0.5 10*3/uL [place] Eosinophils/100 WBC (Bld) 0.2 % Low 1 - 6 % [place] Erythrocyte distribution width (RBC) [Ratio] 17.6 % High 11.5 - 14.5 % [place] Granulocytes/100 WBC (Bld) 78.9 % 40 - 80 % [place] Hematocrit (Bld) [Volume fraction] 33.4 % Low 35 - 47 % [place] Hemoglobin (Bld) [Mass/Vol] 11.0 g/dL Low 11.7 - 16 g/dL [place] Lymphocytes (Bld) [#/Vol] 1.1 10*3/uL 1 - 4.3 10*3/uL [place] Lymphocytes/100 WBC (Bld) 9.4 % Low 20 - 40 % [place] MCH (RBC) [Entitic mass] 27.2 pg 26 - 34 pg [place] MCHC (RBC) [Mass/Vol] 33.0 % 32 - 36 % [place], [place] MCV (RBC) [Entitic vol] 82.4 fL 79 - 98 fL [place], [place] Monocytes (Bld) [#/Vol] 1.3 10*3/uL High 0 - 0.8 10*3/uL [place] Monocytes/100 WBC (Bld) 11.3 % High 2 - 10 % [place] Platelet mean volume (Bld) [Entitic vol] 7.5 fL 7.4 - 10.4 fL [place] Platelets (Bld) [#/Vol] 274 10*3/uL 140 - 440 10*3/uL [place] RBC (Bld) [#/Vol] 4.06 10*6/uL 3.8 - 5.2 10*6/uL [place] WBC (Bld) [#/Vol] 11.5 10*3/uL High 3.6 - 10.7 10*3/uL [place] CORTISOL TOTALon 10-07-2019 Cortisol 13.5 ug/dL [place], [place] Comment on above: Before 10am 4.5-22.7 ug/dL After 5pm 1.7-14.1 ug/dL Test Performed by [facility], [address] [place] [id number] [place], [place] CR Abdomen APon 10-07-2019 CR Abdomen AP Patient Name: DORY BASURTO Diagnostic Radiology Exam Date/Time 10/07/2019 13:48:32 EDT Exam CR Abdomen AP Ordering Physician TIERNEY WHITE Accession Number [id number] CPT4 Codes 89784 () Reason For Exam Ileus Report KUB CLINICAL INDICATION: Ileus COMPARISON: 10/06/2019 Supine images of the abdomen were obtained. Oral gastric tube tip projects in the gastric body. Air is noted in ascending and transverse colon and in a few small bowel loops consistent with an ileus. There is also air in the stomach. There is residual urinary tract and enteric contrast from CT of 10/06/2019. Urinary catheter is present in midline. No acute osseous changes are noted. IMPRESSION: Bowel gas and small bowel and colon compatible with ileus Residual enteric and urinary contrast from prior CT Report Dictated on Final Dictated: 10/07/2019 1:46 pm Dictating Physician: MD CHANDLER DIANE Signed Date and Time: 10/07/2019 1:48 pm Signed by: MD CHANDLER DIANE Transcribed Date and Time: 10/07/2019 1:46 Normal [facility] CR Chest Portableon 10-07-19 20 CR Chest Portable Patient Name: DORY BASURTO Diagnostic Radiology Exam Date/Time 10/07/2019 06:21:20 EDT Exam CR Chest Portable Ordering Physician BIPIN REDDY Accession Number [id number] CPT4 Codes 33159 () Reason For Exam intubated Report PORTABLE CHEST Clinical indication: intubated Comparison: 10/06/2019. Endotracheal tube projects about 3 cm above the gerald. Oral gastric tube extends into the abdomen and off the margin of the image. The cardiac silhouette is not enlarged. Infiltrates show improvement since the prior study, probably due to improving edema. Bilateral pleural effusions appear unchanged. IMPRESSION: Improvement in pulmonary opacities, probably due to improving edema. No change in bilateral pleural effusions Report Dictated on Final Dictated: 10/07/2019 9:48 am Dictating Physician: MD CHANDLER DIANE Signed Date and Time: 10/07/2019 9:50 am Signed by: MD CHANDLER DIANE Transcribed Date and Time: 10/07/2019 9:48 Normal [facility] CULT./ST. RESPIRATORYon 09-21 CULT./ST. RESPIRATORY CULT./ST. RESPIRAT ORY --> Status: F Rare normal respiratory carole. Normal [facility] Comment on above: Order Comment: Speci men Source Comment:Sputum Expectorated Performed By: #### P T, LIPA4, LFT3, PCAL #### [facility] [address] [place], [place] CULT./ST. RESPIRATORY CULT./ST. RESPIRAT ORY --> Status: F No growth at 48 hours. No growth of normal respiratory carole. No growth of normal respiratory carole. Normal [facility] Comment on above: Order Comment: Speci men Source Comment:Endotracheal Performed By: #### P T, LIPA4, LFT3, PCAL #### [facility] [address] [place], [place] Calcium,Ionizedon 10-07-2019 Ionized Ca,Measured 4.20 mg/dL Low 4.30-5.20 [facility] Comment on above: Performed By: #### P T, LIPA4, LFT3, PCAL #### [facility] [address] [place], [place] pH, Ionized Calcium 7.48 High 7.31-7.46 [facility] Comment on above: Performed By: #### P T, LIPA4, LFT3, PCAL #### [facility] [address] [place], [place] Comp Metabolic Panelon 10-06 Urea nitrogen [Mass/Vol] mg/dL Low 7-20 [facility] Comment on above: Performed By: #### P T, LIPA4, LFT3, PCAL #### [facility] [address] [place], [place] ALT [Catalytic activity/Vol] 24 U/L Normal 0-34 [facility] Comment on above: Result Comment: The ALT test is performed by an updated assay method. Please note that the reference intervals have been changed and are now sex specific. Performed By: #### P T, LIPA4, LFT3, PCAL #### [facility] [address] [place], [place] Calcium [Mass/Vol] 7.2 mg/dL Low 8.4-10.4 [facility] Comment on above: Performed By: #### P T, LIPA4, LFT3, PCAL #### [facility] [address] [place], [place] Glucose [Mass/Vol] 143 mg/dL High 70-100 [facility] Comment on above: Performed By: #### P T, LIPA4, LFT3, PCAL #### [facility] [address] [place], [place] ALP [Catalytic activity/Vol] 127 U/L High 38-126 [facility] Comment on above: Result Comment: Slig htly hemolysed, interpret with caution. Performed By: #### P T, LIPA4, LFT3, PCAL #### [facility] [address] [place], [place] Anion gap [Moles/Vol] 6 Normal [facility] Comment on above: Performed By: #### P T, LIPA4, LFT3, PCAL #### [facility] [address] [place], [place] AST [Catalytic activity/Vol] 36 U/L Normal 15-46 [facility] Comment on above: Result Comment: Slig htly hemolysed, interpret with caution. Performed By: #### P T, LIPA4, LFT3, PCAL #### [facility] [address] [place], [place] Bilirubin [Mass/Vol] 0.6 mg/dL Normal 0.2-1.3 [facility] Comment on above: Performed By: #### P T, LIPA4, LFT3, PCAL #### [place] [address] [address] [place], [place] CO2 [Moles/Vol] 22 mmol/L Normal 22-30 [facility] Comment on above: Performed By: #### P T, LIPA4, LFT3, PCAL #### [facility] [address] [place], [place] Creatinine [Mass/Vol] 0.26 mg/dL Low 0.52-1.25 [facility] Comment on above: Performed By: #### P T, LIPA4, LFT3, PCAL #### [facility] [address] [place], [place] GFR/1.73 sq M predicted among blacks MDRD (S/P/Bld) [Vol rate/Area] mL/min/{1.73_m2} Normal >60 [facility] Comment on above: Performed By: #### P T, LIPA4, LFT3, PCAL #### [facility] [address] [place], [place] GFR/1.73 sq M predicted among non-blacks MDRD (S/P/Bld) [Vol rate/Area] mL/min/{1.73_m2} Normal >60 [facility] Comment on above: Result Comment: KDIG O guidelines provide the following GFR categories: Stage GFR(ml/min/1.73 m2) Terms G1 >=90 Normal or high G2 60-89 Mildly decreased* G3a 45-59 Mildly to moderately decreased G3b 30-44 Moderately to severely decreased G4 15-29 Severely decreased G5 <15 Kidney failure *Relative to young adult level. In the absence of evidence of kidney damage, neither GFR category G1 nor G2 fulfill the criteria for CKD. The CKD-EPI equation is validated in individuals 18 years of age and older. Currently the best equation for estimating glomerular filtration rate (GFR) from serum creatinine in children is the Bedside Oshea equation. It is less accurate in patients with extremes of muscle mass, restriction of dietary protein, ingestion of creatine, extra-renal metabolism of creatinine, or treatment with medications that affect renal tubular creatinine secretion. Performed By: #### P T, LIPA4, LFT3, PCAL #### [facility] [address] [place], [place] Protein [Mass/Vol] 4.4 g/dL Low 6.3-8.2 [facility] Comment on above: Performed By: #### P T, LIPA4, LFT3, PCAL #### [facility] [address], [place] Potassium [Moles/Vol] 3.1 mmol/L Low 3.5-5.1 [facility] Comment on above: Result Comment: Slig htly hemolysed, interpret with caution. Performed By: #### P T, LIPA4, LFT3, PCAL #### [facility] [address] [place], [place] Sodium [Moles/Vol] 133 mmol/L Low 135-145 [facility] Comment on above: Performed By: #### P T, LIPA4, LFT3, PCAL #### [place] [address], [place] Albumin [Mass/Vol] 2.1 g/dL Low 3.5-5.0 [facility] Comment on above: Performed By: #### P T, LIPA4, LFT3, PCAL #### [place] [address] [place], [place] Chloride [Moles/Vol] 106 mmol/L Normal 98-107 [facility] Comment on above: Performed By: #### P T, LIPA4, LFT3, PCAL #### [place] [address], [place] Comprehensive Metabolic Pane val 10-07-2019 Albumin [Mass/Vol] 2.1 g/dL Low 3.5 - 5 g/dL [place], [place] ALP [Catalytic activity/Vol] 127 U/L High 38 - 126 U/L [place], [place] Comment on above: Slightly hemolysed, interpret with caution. ALT [Catalytic activity/Vol] 24 U/L 0 - 34 U/L [place], [place] Comment on above: The ALT test is perf ormed by an updated assay method. Please note that the reference intervals have been changed and are now sex specific. Anion gap [Moles/Vol] 6 mmol/L [place], [place] AST [Catalytic activity/Vol] 36 U/L 15 - 46 U/L [place], [place] Comment on above: Slightly hemolysed, interpret with caution. Bilirubin Ql (U) 0.6 mg/dL 0.2 - 1.3 mg/dL [place], [place] Calcium [Mass/Vol] 7.2 mg/dL Low 8.4 - 10. 4 mg/dL [place] Chloride [Moles/Vol] 106 mmol/L 98 - 10 7 mmol/L [place] CO2 [Moles/Vol] 22 mmol/L 22 - 30 mmol/L [place] Creatinine [Mass/Vol] 0.26 mg/dL Low 0.52 - 1.25 mg/dL [place], [place] EGFR IF NonAfrican [place]an >90.0 >60 mL/min [place], [place] Comment on above: KDIGO guidelines pro vide the following GFR categories: Stage GFR(ml/min/1.73 m2) Terms G1 >=90 Normal or high G2 60-89 Mildly decreased* G3a 45-59 Mildly to moderately decreased G3b 30-44 Moderately to severely decreased G4 15-29 Severely decreased G5 <15 Kidney failure *Relative to young adult level. In the absence of evidence of kidney damage, neither GFR category G1 nor G2 fulfill the criteria for CKD. The CKD-EPI equation is validated in individuals 18 years of age and older. Currently the best equation for estimating glomerular filtration rate (GFR) from serum creatinine in children is the Bedside Oshea equation. It is less accurate in patients with extremes of muscle mass, restriction of dietary protein, ingestion of creatine, extra-renal metabolism of creatinine, or treatment with medications that affect renal tubular creatinine secretion. GFR/1.73 sq M predicted among blacks MDRD (S/P/Bld) [Vol rate/Area] mL/min/{1.73_m2} >60 mL/min [place], [place] Glucose [Mass/Vol] 143 mg/dL High 70 - 100 mg/dL [place] Interpretation and review of laboratory results Abnormal [place] Potassium [Moles/Vol] 3.1 mmol/L Low 3.5 - 5.1 mmol/L [place], [place] Comment on above: Slightly hemolysed, interpret with caution. Protein [Mass/Vol] 4.4 g/dL Low 6.3 - 8.2 g/dL [place] Sodium [Moles/Vol] 133 mmol/L Low 135 - 145 mmol/L [place], [place] Urea nitrogen [Mass/Vol] mg/dL Low 7 - 20 mg/dL [facility] [place] Test Performed by [employer], [facility] [place] [address] [place], [place] Cortisolon 10-07-2019 Cortisol 13.5 ug/dL Normal [facility] Comment on above: Result Comment: Befo re 10am 4.5-22.7 ug/dL After 5pm 1.7-14.1 ug/dL Performed By: #### P T, LIPA4, LFT3, PCAL #### [address] [place] [address] [place] [address] Culture, Respiratoryon 10-06 Respiratory Culture Rare normal respiratory carole. [place], [place] Test Performed by [employer], [facility] [place] [address] Specimen Source Comment:Sputum Expectorated [place], [place] Respiratory Culture No growth at 48 hour s. No growth of normal respiratory carole. [facility] [place], [place] Test Performed by [employer], [facility] [place] [address] Specimen Source Comment:Endotracheal [facility] [place], [place] EKG 12 Leadon 10-07-2019 Ezio, [facility] Incoming Cardiology Results From [facility] - 10/07/2019 2:54 PM EDT [facility] Test Date: 2019-10-05 Pat Name: Dory Basurto Department: [facility] Room: [facility] Gender: F Doctor Of Naprapathy: ROBEL : 1955 Requested By: NELLA CHU Order Number: [id number] Reading MD: Mitch Fraser Measurements Intervals [place] Rate: 85 P: VT: QRS: 72 QRSD: 86 T: 74 QT: 359 QTc: 427 Interpretive Statements Atrial fibrillation Low voltage, extremity and precordial leads Nonspecific T abnormalities, lateral leads Electronically Signed On 10-07-2019 14:53:19 EDT by [facility] Test Date: 2019-10-05 Pat Name: Dory Basurto Department: 1AT3 Room: [facility] Gender: F Doctor Of Naprapathy: ROBEL : 1955 Requested By: NELLA CHU Order Number: [id number] Reading MD: Mitch Fraser Measurements Intervals [place] Rate: 85 P: VT: QRS: 72 QRSD: 86 T: 74 QT: 359 QTc: 427 Interpretive Statements Atrial fibrillation Low voltage, extremity and precordial leads Nonspecific T abnormalities, lateral leads Electronically Signed On 10-07-2019 14:53:19 EDT by Mitch Fraser [place], [place] Hemogram w/ Autodiffon 10-06 Abs Baso Cnt 0.0 10*3/uL Normal 0.0-0.2 [facility] Comment on above: Performed By: #### P T, LIPA4, LFT3, PCAL #### [place] [address] [address] [place], [place] Abs Neutrophile Cnt 9.0 10*3/uL High 1.8-7.0 [facility] Comment on above: Performed By: #### P T, LIPA4, LFT3, PCAL #### [address] Basophils/100 WBC (Bld) 0.2 % Normal 0.0-2.0 [facility] Comment on above: Performed By: #### P T, LIPA4, LFT3, PCAL #### [address] Eosinophils (Bld) [#/Vol] 0.0 10*3/uL Normal 0.0-0.5 [facility] Comment on above: Performed By: #### P T, LIPA4, LFT3, PCAL #### [address] Eosinophils/100 WBC (Bld) 0.2 % Low 1.0-6.0 [facility] Comment on above: Performed By: #### P T, LIPA4, LFT3, PCAL #### [address] Erythrocyte distribution width (RBC) [Ratio] 17.6 % High 11.5-14.5 [facility] Comment on above: Performed By: #### P T, LIPA4, LFT3, PCAL #### [place] [address] [address] [place], [place] Granulocytes/100 WBC (Bld) 78.9 % Normal 40.0-80.0 [facility] Comment on above: Performed By: #### P T, LIPA4, LFT3, PCAL #### [place] [address] [address] [place] Hematocrit (Bld) [Volume fraction] 33.4 % Low 35.0-47.0 [facility] Comment on above: Performed By: #### P T, LIPA4, LFT3, PCAL #### [address] Hemoglobin (Bld) [Mass/Vol] 11.0 g/dL Low 11.7-16.0 [facility] Comment on above: Performed By: #### P T, LIPA4, LFT3, PCAL #### [address] [place] Lymphocytes (Bld) [#/Vol] 1.1 10*3/uL Normal 1.0-4.3 [facility] Comment on above: Performed By: #### P T, LIPA4, LFT3, PCAL #### [address] Lymphocytes/100 WBC (Bld) 9.4 % Low 20.0-40.0 [facility] Comment on above: Performed By: #### P T, LIPA4, LFT3, PCAL #### [place] [address] [address] [place], [place] MCH (RBC) [Entitic mass] 27.2 pg Normal 26.0-34.0 [facility] Comment on above: Performed By: #### P T, LIPA4, LFT3, PCAL #### [address] MCHC (RBC) [Mass/Vol] 33.0 % Normal 32.0-36.0 [facility] Comment on above: Performed By: #### P T, LIPA4, LFT3, PCAL #### [place] [address] [address] [place] MCV (RBC) [Entitic vol] 82.4 fL Normal 79.0-98.0 [facility] Comment on above: Performed By: #### P T, LIPA4, LFT3, PCAL #### [place] [address] [place] Monocytes (Bld) [#/Vol] 1.3 10*3/uL High 0.0-0.8 [facility] Comment on above: Performed By: #### P T, LIPA4, LFT3, PCAL #### [place] [address] [place] Monocytes/100 WBC (Bld) 11.3 % High 2.0-10.0 [facility] Comment on above: Performed By: #### P T, LIPA4, LFT3, PCAL #### [place] [address] [place] Platelet mean volume (Bld) [Entitic vol] 7.5 fL Normal 7.4-10.4 [facility] Comment on above: Performed By: #### P T, LIPA4, LFT3, PCAL #### [place] [address] [address] [place] Platelets (Bld) [#/Vol] 274 10*3/uL Normal 140-440 [facility] Comment on above: Performed By: #### P T, LIPA4, LFT3, PCAL #### [place] [address] [place] RBC (Bld) [#/Vol] 4.06 10*6/uL Normal 3.80-5.20 [facility] Comment on above: Performed By: #### P T, LIPA4, LFT3, PCAL #### [place] [address] [place], [place] WBC (Bld) [#/Vol] 11.5 10*3/uL High 3.6-10.7 [facility] Comment on above: Performed By: #### P T, LIPA4, LFT3, PCAL #### [place] [place] [address] Ionized Calciumon 10-07-2019 Ionized Ca 4.20 mg/dL Low 4.3 - 5.2 mg/dL [place], [place] pH (Bld) 7.48 [pH] High [place] Magnesiumon 10-07-2019 Magnesium [Mass/Vol] 3.6 mg/dL High 1.6-2.3 [facility] Comment on above: Result Comment: Slig htly hemolysed, interpret with caution. Performed By: #### P T, LIPA4, LFT3, PCAL #### [place] [place] [address] Interpretation and review of laboratory results Abnormal [place] Magnesium [Mass/Vol] 3.6 mg/dL High 1.6 - 2 .3 mg/dL [place], [place] Comment on above: Slightly hemolysed, interpret with caution. Otheron 10-07-2019 Test Performed by [address] [address] [place], [place] Interpretation and review of laboratory results Abnormal [place] Test Performed by [facility], [address] [place] [address] [place] Phosphoruson 10-07-2019 Phosphate [Mass/Vol] 3.0 mg/dL Normal 2.5-4.5 [facility] Comment on above: Result Comment: Slig htly hemolysed, interpret with caution. Performed By: #### P T, LIPA4, LFT3, PCAL #### [place] [address] [place] [address] Phosphate [Mass/Vol] 3.0 mg/dL 2.5 - 4 .5 mg/dL [place], [place] Comment on above: Slightly hemolysed, interpret with caution. Procalcitoninon 10-07-2019 Procalcitonin 0.26 ng/mL Abnormal <0.[address] [facility] Comment on above: Performed By: #### P T, LIPA4, LFT3, PCAL #### [address] [address] Interpretation and review of laboratory results Abnormal [place] Procalcitonin 0.26 ng/mL Abnormal <0.10 [place] Sodium [Moles/Vol] See Below [place], [place] Comment on above: PCT <0.50 = Low risk of severe sepsis and/or septic shock. PCT >2.00 = High risk of severe sepsis and/or septic shock. Test Performed by [address] [address] [place], [place] Prothrombin Timeon 0 INR Coag (PPP) [Relative time] 1.3 High 0.9-1.1 [facility] Comment on above: Result Comment: Mark mmended Anticoagulant Therapy: SEE BELOW ----- INR of 2.0 - 3.0 : - Prophylaxis of Venous Thrombosis (high-risk surgery) - Treatment of Venous Thrombosis - Treatment of Pulmonary Embolism (Includes tissue heart valves, Acute Myocardial Infarction to prevent systemic embolism, Valvular Heart Disease, and Atrial Fibrillation) ----- INR of 2.5 - 3.5 : - Mechanical Prosthetic Valves (high risk) - If oral anticoagulant therapy is used to prevent Myocardial Infarction Performed By: #### P T, LIPA4, LFT3, PCAL #### [address] [address] PT Coag (PPP) [Time] 13.7 s High 9.0-12.0 [facility] Comment on above: Result Comment: . Performed By: #### P T, LIPA4, LFT3, PCAL #### [address] [address] Protime-INRon 10-07-2019 INR Coag (PPP) [Relative time] 1.3 {INR} High [place] Comment on above: Recommended Anticoag ulant Therapy: SEE BELOW ----- INR of 2.0 - 3.0 : - Prophylaxis of Venous Thrombosis (high-risk surgery) - Treatment of Venous Thrombosis - Treatment of Pulmonary Embolism (Includes tissue heart valves, Acute Myocardial Infarction to prevent systemic embolism, Valvular Heart Disease, and Atrial Fibrillation) ----- INR of 2.5 - 3.5 : - Mechanical Prosthetic Valves (high risk) - If oral anticoagulant therapy is used to prevent Myocardial Infarction Interpretation and review of laboratory results Abnormal [place], [place] PT Coag (PPP) [Time] 13.7 s High 9 - 12 s [place], [place] Comment on above: . Test Performed by [facility], [address] [place] [id number] [place] [address] XR ABDOMEN (KUB) (SINGLE AP VIEW)on 10-07-2019 Patient Name: DORY BASURTO ---Diagnostic Radiology--- Exam Date/Time 10/07/2019 13:48:32 EDT Exam CR Abdomen AP Ordering Physician TIERNEY WHITE Accession Number [id number] CPT4 Codes 16061 () Reason For Exam Ileus Report KUB CLINICAL INDICATION: Ileus COMPARISON: 10/06/2019 Supine images of the abdomen were obtained. Oral gastric tube tip projects in the gastric body. Air is noted in ascending and transverse colon and in a few small bowel loops consistent with an ileus. There is also air in the stomach. There is residual urinary tract and enteric contrast from CT of 10/06/2019. Urinary catheter is present in midline. No acute osseous changes are noted. IMPRESSION: Bowel gas and small bowel and colon compatible with ileus Residual enteric and urinary contrast from prior CT Report Dictated on --- Final --- Dictated: 10/07/2019 1:46 pm Dictating Physician: MD CHANDLER DIANE Signed Date and Time: 10/07/2019 1:48 pm Signed by: MD CHANDLER DIANE Transcribed Date and Time: 10/07/2019 1:46 [place], [place] Ezio, [facility] Incoming Radiology Results From [facility] - 10/07/2019 1:49 PM EDT Patient Name: DORY BASURTO ---Diagnostic Radiology--- Exam Date/Time 10/07/2019 13:48:32 EDT Exam CR Abdomen AP Ordering Physician TIERNEY WHITE Accession Number [id number] CPT4 Codes 55774 () Reason For Exam Ileus Report KUB CLINICAL INDICATION: Ileus COMPARISON: 10/06/2019 Supine images of the abdomen were obtained. Oral gastric tube tip projects in the gastric body. Air is noted in ascending and transverse colon and in a few small bowel loops consistent with an ileus. There is also air in the stomach. There is residual urinary tract and enteric contrast from CT of 10/06/2019. Urinary catheter is present in midline. No acute osseous changes are noted. IMPRESSION: Bowel gas and small bowel and colon compatible with ileus Residual enteric and urinary contrast from prior CT Report Dictated on --- Final --- Dictated: 10/07/2019 1:46 pm Dictating Physician: MD CHANDLER DIANE Signed Date and Time: 10/07/2019 1:48 pm Signed by: MD CHANDLER DIANE Transcribed Date and Time: 10/07/2019 1:46 [place] XR CHEST PORTABLEon 10-07-19 Patient Name: DORY BASURTO ---Diagnostic Radiology--- Exam Date/Time 10/07/2019 06:21:20 EDT Exam CR Chest Portable Ordering Physician [id number] PATEL Accession Number [id number] CPT4 Codes 91732 () Reason For Exam intubated Report PORTABLE CHEST Clinical indication: intubated Comparison: 10/06/2019. Endotracheal tube projects about 3 cm above the gerald. Oral gastric tube extends into the abdomen and off the margin of the image. The cardiac silhouette is not enlarged. Infiltrates show improvement since the prior study, probably due to improving edema. Bilateral pleural effusions appear unchanged. IMPRESSION: Improvement in pulmonary opacities, probably due to improving edema. No change in bilateral pleural effusions Report Dictated on --- Final --- Dictated: 10/07/2019 9:48 am Dictating Physician: MD CHANDLER DIANE Signed Date and Time: 10/07/2019 9:50 am Signed by: MD CHANDLER DIANE Transcribed Date and Time: 10/07/2019 9:48 [place], [place] [facility] Results From [facility] - 10/07/2019 9:51 AM EDT Patient Name: DORY BASURTO ---Diagnostic Radiology--- Exam Date/Time 10/07/2019 06:21:20 EDT Exam CR Chest Portable Ordering Physician [id number] PATEL Accession Number [id number] CPT4 Codes 56113 () Reason For Exam intubated Report PORTABLE CHEST Clinical indication: intubated Comparison: 10/06/2019. Endotracheal tube projects about 3 cm above the gerald. Oral gastric tube extends into the abdomen and off the margin of the image. The cardiac silhouette is not enlarged. Infiltrates show improvement since the prior study, probably due to improving edema. Bilateral pleural effusions appear unchanged. IMPRESSION: Improvement in pulmonary opacities, probably due to improving edema. No change in bilateral pleural effusions Report Dictated on --- Final --- Dictated: 10/07/2019 9:48 am Dictating Physician: MD CHANDLER DIANE Signed Date and Time: 10/07/2019 9:50 am Signed by: MD CHANDLER DIANE Transcribed Date and Time: 10/07/2019 9:48 [place], [place] Arterial Blood Gaseson 10-05 CO2 [Moles/Vol] 27.7 mmol/L High 23.0-27.0 [facility] Comment on above: Performed By: #### P T, LIPA4, LFT3, PCAL #### [facility] [address] [place], [place] HCO3 (Bld) [Moles/Vol] 26.7 mmol/L High 21.0-25.0 [facility] Comment on above: Performed By: #### P T, LIPA4, LFT3, PCAL #### [facility] [address] [place], [place] Hemoglobin (Bld) [Mass/Vol] 10.7 g/dL Normal ScreenOnly [facility] Comment on above: Performed By: #### P T, LIPA4, LFT3, PCAL #### [place] [address] [address] [place], [place] Oxygen (Bld) [Partial pressure] 119.3 mm[Hg] High 80.0-100.0 [facility] Comment on above: Performed By: #### P T, LIPA4, LFT3, PCAL #### [place] [address] [address] Oxygen saturation in Blood 98.5 % Normal 95.0-100.0 [facility] Comment on above: Performed By: #### P T, LIPA4, LFT3, PCAL #### [place] [address] [place] pCO2 33.0 mm[Hg] Low 35.0-45.0 [facility] Comment on above: Performed By: #### P T, LIPA4, LFT3, PCAL #### [place] [address] [place], [place] pH (Bld) 7.526 High 7.350-7.450 [facility] Comment on above: Performed By: #### P T, LIPA4, LFT3, PCAL #### [place] [address], [place] Std Base Excess 4.1 mmol/L High -3.0-3.0 [facility] Comment on above: Performed By: #### P T, LIPA4, LFT3, PCAL #### [place] [address] FIO2 .55 Normal [facility] Comment on above: Performed By: #### P T, LIPA4, LFT3, PCAL #### [place] [address] [place], [place] BLOOD GAS, ARTERIALon 2019 Base Excess, Arterial 4.1 mmol/L High -3 - 3 mmol/L [place] HCO3, Arterial 26.7 mmol/L High 21 - 25 mmol/L [place], [place] Hemoglobin (Bld) [Mass/Vol] 10.7 g/dL ScreenOnly [place] Interpretation and review of laboratory results Abnormal [place] Oxygen saturation in Blood 98.5 % 95 - 100 % [place] pCO2, Arterial 33.0 mm[Hg] Low 35 - 45 mm[Hg] [place] pH, Arterial 7.526 High [place] pO2, Arterial 119.3 mm[Hg] High 80 - 100 mm[Hg] [place] Sodium [Moles/Vol] 0.55 mmol/L [place] TCO2, Arterial 27.7 mmol/L High 23 - 27 mmol/L [place] Test Performed by [facility], [address] [place] [id number] [place] [address] Basic Metabolic Panelon 09-21 Calcium [Mass/Vol] 7.4 mg/dL Low 8.4-10.4 [facility] Comment on above: Performed By: #### P T, LIPA4, LFT3, PCAL #### [address] Glucose [Mass/Vol] 111 mg/dL High 70-100 [facility] Comment on above: Performed By: #### P T, LIPA4, LFT3, PCAL #### [address] Anion gap [Moles/Vol] 5 Normal [facility] Comment on above: Performed By: #### P T, LIPA4, LFT3, PCAL #### [address] CO2 [Moles/Vol] 24 mmol/L Normal 22-30 [facility] Comment on above: Performed By: #### P T, LIPA4, LFT3, PCAL #### [address] Creatinine [Mass/Vol] 0.36 mg/dL Low 0.52-1.25 [facility] Comment on above: Performed By: #### P T, LIPA4, LFT3, PCAL #### [address] GFR/1.73 sq M predicted among blacks MDRD (S/P/Bld) [Vol rate/Area] mL/min/{1.73_m2} Normal >60 [facility] Comment on above: Performed By: #### P T, LIPA4, LFT3, PCAL #### [facility] [address] [place] [address] GFR/1.73 sq M predicted among non-blacks MDRD (S/P/Bld) [Vol rate/Area] mL/min/{1.73_m2} Normal >60 [facility] Comment on above: Result Comment: KDIG O guidelines provide the following GFR categories: Stage GFR(ml/min/1.73 m2) Terms G1 >=90 Normal or high G2 60-89 Mildly decreased* G3a 45-59 Mildly to moderately decreased G3b 30-44 Moderately to severely decreased G4 15-29 Severely decreased G5 <15 Kidney failure *Relative to young adult level. In the absence of evidence of kidney damage, neither GFR category G1 nor G2 fulfill the criteria for CKD. The CKD-EPI equation is validated in individuals 18 years of age and older. Currently the best equation for estimating glomerular filtration rate (GFR) from serum creatinine in children is the Bedside Oshea equation. It is less accurate in patients with extremes of muscle mass, restriction of dietary protein, ingestion of creatine, extra-renal metabolism of creatinine, or treatment with medications that affect renal tubular creatinine secretion. Performed By: #### P T, LIPA4, LFT3, PCAL #### [facility] [address] [place] [address] Urea nitrogen [Mass/Vol] 3 mg/dL Low 7-20 [facility] Comment on above: Performed By: #### P T, LIPA4, LFT3, PCAL #### [facility] [address] [place] [address] Chloride [Moles/Vol] 106 mmol/L Normal 98-107 [facility] Comment on above: Performed By: #### P T, LIPA4, LFT3, PCAL #### [facility] [address] [place] [address] Potassium [Moles/Vol] 3.1 mmol/L Low 3.5-5.1 [facility] Comment on above: Performed By: #### P T, LIPA4, LFT3, PCAL #### [facility] [address] [place] [address] Sodium [Moles/Vol] 136 mmol/L Normal 135-145 [facility] Comment on above: Performed By: #### P T, LIPA4, LFT3, PCAL #### [facility] [address] [place] [address] CBC auto differentialon 09-21 Absolute Baso # 0.1 10*3/uL 0 - 0.2 10*3/uL [place] Absolute Neut # 9.2 10*3/uL High 1.8 - 7 10*3/uL [place] Basophils/100 WBC (Bld) 0.5 % 0 - 2 % [place], [place] Eosinophils (Bld) [#/Vol] 0.0 10*3/uL 0 - 0.5 10*3/uL [place] Eosinophils/100 WBC (Bld) 0.3 % Low 1 - 6 % [place] Erythrocyte distribution width (RBC) [Ratio] 17.2 % High 11.5 - 14.5 % [place] Granulocytes/100 WBC (Bld) 78.7 % 40 - 80 % [place] Hematocrit (Bld) [Volume fraction] 31.2 % Low 35 - 47 % [place] Hemoglobin (Bld) [Mass/Vol] 10.5 g/dL Low 11.7 - 16 g/dL [place] Interpretation and review of laboratory results Abnormal [place] Lymphocytes (Bld) [#/Vol] 1.2 10*3/uL 1 - 4.3 10*3/uL [place] Lymphocytes/100 WBC (Bld) 10.4 % Low 20 - 40 % [place] MCH (RBC) [Entitic mass] 27.7 pg 26 - 34 pg [place] MCHC (RBC) [Mass/Vol] 33.5 % 32 - 36 % [place], [place] MCV (RBC) [Entitic vol] 82.7 fL 79 - 98 fL [place] Monocytes (Bld) [#/Vol] 1.2 10*3/uL High 0 - 0.8 10*3/uL [place] Monocytes/100 WBC (Bld) 10.1 % High 2 - 10 % [place] Platelet mean volume (Bld) [Entitic vol] 7.2 fL Low 7.4 - 10.4 fL [place] Platelets (Bld) [#/Vol] 269 10*3/uL 140 - 440 10*3/uL [place] RBC (Bld) [#/Vol] 3.78 10*6/uL Low 3.8 - 5.2 10*6/uL [place] WBC (Bld) [#/Vol] 11.7 10*3/uL High 3.6 - 10.7 10*3/uL [place] Test Performed by [facility], [address] [place] [id number] [place] [address] CR Abdomen APon 10-06-2019 CR Abdomen AP Patient Name: DORY BASURTO Diagnostic Radiology Exam Date/Time 10/06/2019 13:35:51 EDT Exam CR Abdomen AP Ordering Physician [id number] HOWELL Accession Number [id number] CPT4 Codes 97520 () Reason For Exam ng placement Report EXAM: CR Abdomen AP INDICATION: NG tube placement; inpatient VIEWS: Portable AP COMPARISON: 02/10/2020 CT abdomen and pelvis; abdomen radiograph 10/06/2019 at 5:59 TIME: 13:16 on 10/06/2019 FINDINGS AND IMPRESSION: An enteric tube has been placed with tip in the region of the stomach in left upper quadrant. The bowel gas pattern is nonspecific. Bilateral pleural effusions are present. Report Dictated on Final Dictated: 10/06/2019 7:08 pm Dictating Physician: MD MURPHY JENNIFER R Signed Date and Time: 10/06/2019 7:09 pm Signed by: MD MURPHY JENNIFER R Transcribed Date and Time: 10/06/2019 7:08 Normal [facility] CR Abdomen AP Patient Name: DORY BASURTO Diagnostic Radiology Exam Date/Time 10/06/2019 06:37:01 EDT Exam CR Abdomen AP Ordering Physician TIERNEY WHITE Accession Number [id number] CPT4 Codes 20350 () Reason For Exam Ileus Report HISTORY: Ileus A supine plain film of the abdomen was obtained. Comparisons available: 10/05/2019 Findings: There is redemonstration of gaseous distention of small and large bowel loops. It appears slightly worse when compared to 10/05/2019. Some of the bowel loops appear more distended and there appears to be some wall thickening as well. No air-fluid levels are appreciated. No large free air. Generative changes in the osseous structures. A Jensen catheter is noted. IMPRESSION: Findings suggesting worsening ileus. Report Dictated on Final Dictated: 10/06/2019 8:59 am Dictating Physician: MD HOLCOMB TOM A Signed Date and Time: 10/06/2019 9:01 am Signed by: MD HOLCOMB TOM A Transcribed Date and Time: 10/06/2019 8:59 Normal [facility] CR Chest Portableon 10-06-19 20 CR Chest Portable Patient Name: DORY BASURTO Diagnostic Radiology Exam Date/Time 10/06/2019 07:42:37 EDT Exam CR Chest Portable Ordering Physician [id number] PATEL Accession Number [id number] CPT4 Codes 54884 () Reason For Exam intubated Report Indication: Intubated. Comparison: 10/05/2019. Technique: A single frontal view of chest was obtained. Findings: An endotracheal tube is seen in stable position. There are small bilateral pleural effusions. There is diffuse groundglass opacity which could in part relate to layering fluid. There are superimposed reticular opacities seen throughout both lungs. There is a more dense area of opacity in the retrocardiac region Cardiac silhouette is stable. Pulmonary vasculature is not congested. Impression: Overall, probably no large interval change. Small bilateral pleural effusions with associated groundglass opacity and reticular opacities. These could relate to edema or an atypical infection. Clinical correlation is required. Left retrocardiac opacity could represent more focal infiltrate or atelectasis. Report Dictated on Final Dictated: 10/06/2019 9:01 am Dictating Physician: MD HOLCOMB TOM A Signed Date and Time: 10/06/2019 9:03 am Signed by: MD HOLCOMB TOM A Transcribed Date and Time: 10/06/2019 9:[address] [facility] CT Abdomen Pelvis W Contrast on 10-06-2019 Patient Name: DORY BASURTO ---CT--- Exam Date/Time 10/06/2019 16:40:[address] Abdomen/Pelvis w/ IV Contrast (IV Onl Ordering Physician TIERNEY WHITE Accession Number [id number] CPT4 Codes 21746 (CT Abdomen/Pelvis w/ IV Contrast (IV Onl), Q9967 (CT ISOVUE 370MG/ML&[id number]&M L&1) Reason For Exam ileus Report EXAM: CT Abdomen/Pelvis w/ Contrast INDICATION: Inpatient; ileus TECHNIQUE: Multiple axial [address] images of the abdomen and pelvis were obtained after the administration of IV contrast with 75 mL of Isovue-370. Oral contrast also provided. Coronal and sagittal reconstructs provided. COMPARISON: CT abdomen and pelvis 10/03/2019 TIME: 16:37 FINDINGS: Lung bases: Interval increase in moderate bilateral pleural effusions with compressive atelectasis and lower lung infiltrates. Osseous structures: Stable. Liver: Diffuse decreased attenuation compared the spleen compatible with hepatic steatosis. Biliary tree: No biliary dilatation. The gallbladder is isoattenuating compared to the liver without wall thickening. There is fluid surrounding the gallbladder possibly due to a systemic process. Spleen: The contour is normal. Streak artifact due to the patient's arms by the abdomen limits evaluation of the enhancement. Adrenals: There is thickening of the adrenal glands with possible small adrenal gland adenoma on the right, unchanged. Pancreas: Normal. Kidneys: Streak artifact due to the patient's arms by the abdomen limits evaluation of the enhancement. Overall the enhancement appears improved compared to prior imaging with some residual decreased attenuation involving portions of the cortex and medulla bilaterally. No hydronephrosis or obstructing calculus. Mild fluid surrounds the right kidney. A Jensen is present within the bladder. Free fluid: A small volume of fluid is present in the pelvis and abdomen, increased compared to prior imaging. Lymphadenopathy: None. Aorta: Atherosclerotic calcifications are present. No evidence for aneurysm or dissection. Bowel: Oral contrast was provided and is present within multiple loops of small bowel and within the transverse colon and descending colon. The appendix is not identified with certainty in the right lower quadrant. Moderate fecal retention is present. There is wall thickening involving the descending colon, sigmoid colon, and rectum. Other: An enteric tube is present with tip in the stomach. The uterus is present. There is diffuse edema and fluid throughout the soft tissues of the abdomen and pelvis. 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 IMPRESSION: 1. Bilateral moderate pleural effusions with compressive atelectasis and lower lung infiltrates, overall increased in size compared to prior exam 3 days previously. 2. Infectious/inflammator y changes with thickening of the wall of the descending colon, sigmoid colon, and rectum. Oral contrast is present to the level of the descending colon without obstruction. 3. Intra-abdominal ascites, small in volume. Diffuse edema/anasarca throughout the soft tissue. 4. Hepatic steatosis. 5. Limited evaluation of the enhancement of the kidneys, as above. There appears to be some persistent decreased enhancement on the right and left which may represent pyelonephritis versus wedged shaped infarcts. Report Dictated on --- Final --- Dictated: 10/06/2019 6:52 pm Dictating Physician: MD MURPHY JENNIFER R Signed Date and Time: 10/06/2019 7:08 pm Signed by: MD MURPHY JENNIFER R Transcribed Date and Time: 10/06/2019 6:52 [facility], [place] Incoming Radiology Results From [facility] - 10/06/2019 7:09 PM EDT Patient Name: DORY BASURTO ---CT--- Exam Date/Time 10/06/2019 16:40:[address] Abdomen/Pelvis w/ IV Contrast (IV Onl Ordering Physician LINNEAROSETTA TAVERASICK Accession Number [id number] CPT4 Codes 40203 (CT Abdomen/Pelvis w/ IV Contrast (IV Onl), Q9967 (CT ISOVUE 370MG/ML&[id number]&M L&1) Reason For Exam ileus Report EXAM: CT Abdomen/Pelvis w/ Contrast INDICATION: Inpatient; ileus TECHNIQUE: Multiple axial [address] images of the abdomen and pelvis were obtained after the administration of IV contrast with 75 mL of Isovue-370. Oral contrast also provided. Coronal and sagittal reconstructs provided. COMPARISON: CT abdomen and pelvis 10/03/2019 TIME: 16:37 FINDINGS: Lung bases: Interval increase in moderate bilateral pleural effusions with compressive atelectasis and lower lung infiltrates. Osseous structures: Stable. Liver: Diffuse decreased attenuation compared the spleen compatible with hepatic steatosis. Biliary tree: No biliary dilatation. The gallbladder is isoattenuating compared to the liver without wall thickening. There is fluid surrounding the gallbladder possibly due to a systemic process. Spleen: The contour is normal. Streak artifact due to the patient's arms by the abdomen limits evaluation of the enhancement. Adrenals: There is thickening of the adrenal glands with possible small adrenal gland adenoma on the right, unchanged. Pancreas: Normal. Kidneys: Streak artifact due to the patient's arms by the abdomen limits evaluation of the enhancement. Overall the enhancement appears improved compared to prior imaging with some residual decreased attenuation involving portions of the cortex and medulla bilaterally. No hydronephrosis or obstructing calculus. Mild fluid surrounds the right kidney. A Jensen is present within the bladder. Free fluid: A small volume of fluid is present in the pelvis and abdomen, increased compared to prior imaging. Lymphadenopathy: None. Aorta: Atherosclerotic calcifications are present. No evidence for aneurysm or dissection. Bowel: Oral contrast was provided and is present within multiple loops of small bowel and within the transverse colon and descending colon. The appendix is not identified with certainty in the right lower quadrant. Moderate fecal retention is present. There is wall thickening involving the descending colon, sigmoid colon, and rectum. Other: An enteric tube is present with tip in the stomach. The uterus is present. There is diffuse edema and fluid throughout the soft tissues of the abdomen and pelvis. 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 IMPRESSION: 1. Bilateral moderate pleural effusions with compressive atelectasis and lower lung infiltrates, overall increased in size compared to prior exam 3 days previously. 2. Infectious/inflammator y changes with thickening of the wall of the descending colon, sigmoid colon, and rectum. Oral contrast is present to the level of the descending colon without obstruction. 3. Intra-abdominal ascites, small in volume. Diffuse edema/anasarca throughout the soft tissue. 4. Hepatic steatosis. 5. Limited evaluation of the enhancement of the kidneys, as above. There appears to be some persistent decreased enhancement on the right and left which may represent pyelonephritis versus wedged shaped infarcts. Report Dictated on --- Final --- Dictated: 10/06/2019 6:52 pm Dictating Physician: MD MURPHY JENNIFER R Signed Date and Time: 10/06/2019 7:08 pm Signed by: MD MURPHY JENNIFER R Transcribed Date and Time: 10/06/2019 6:52 [place], [place] CT Abdomen/Pelvis w/ Contras ton 10-06-2019 CT Abdomen/Pelvis w/ Contrast Patient Name: DORY BASURTO CT Exam Date/Time 10/06/2019 16:40:[address] Abdomen/Pelvis w/ IV Contrast (IV Onl Ordering Physician TIERNEY WHITE Accession Number [id number] CPT4 Codes 79661 (CT Abdomen/Pelvis w/ IV Contrast (IV Onl), Q9967 (CT ISOVUE 370MG/[id number] andMLand1) Reason For Exam ileus Report EXAM: CT Abdomen/Pelvis w/ Contrast INDICATION: Inpatient; ileus TECHNIQUE: Multiple axial [address] images of the abdomen and pelvis were obtained after the administration of IV contrast with 75 mL of Isovue-370. Oral contrast also provided. Coronal and sagittal reconstructs provided. COMPARISON: CT abdomen and pelvis 10/03/2019 TIME: 16:37 FINDINGS: Lung bases: Interval increase in moderate bilateral pleural effusions with compressive atelectasis and lower lung infiltrates. Osseous structures: Stable. Liver: Diffuse decreased attenuation compared the spleen compatible with hepatic steatosis. Biliary tree: No biliary dilatation. The gallbladder is isoattenuating compared to the liver without wall thickening. There is fluid surrounding the gallbladder possibly due to a systemic process. Spleen: The contour is normal. Streak artifact due to the patient's arms by the abdomen limits evaluation of the enhancement. Adrenals: There is thickening of the adrenal glands with possible small adrenal gland adenoma on the right, unchanged. Pancreas: Normal. Kidneys: Streak artifact due to the patient's arms by the abdomen limits evaluation of the enhancement. Overall the enhancement appears improved compared to prior imaging with some residual decreased attenuation involving portions of the cortex and medulla bilaterally. No hydronephrosis or obstructing calculus. Mild fluid surrounds the right kidney. A Jensen is present within the bladder. Free fluid: A small volume of fluid is present in the pelvis and abdomen, increased compared to prior imaging. Lymphadenopathy: None. Aorta: Atherosclerotic calcifications are present. No evidence for aneurysm or dissection. Bowel: Oral contrast was provided and is present within multiple loops of small bowel and within the transverse colon and descending colon. The appendix is not identified with certainty in the right lower quadrant. Moderate fecal retention is present. There is wall thickening involving the descending colon, sigmoid colon, and rectum. Other: An enteric tube is present with tip in the stomach. The uterus is present. There is diffuse edema and fluid throughout the soft tissues of the abdomen and pelvis. 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 IMPRESSION: 1. Bilateral moderate pleural effusions with compressive atelectasis and lower lung infiltrates, overall increased in size compared to prior exam 3 days previously. 2. Infectious/inflammator y changes with thickening of the wall of the descending colon, sigmoid colon, and rectum. Oral contrast is present to the level of the descending colon without obstruction. 3. Intra-abdominal ascites, small in volume. Diffuse edema/anasarca throughout the soft tissue. 4. Hepatic steatosis. 5. Limited evaluation of the enhancement of the kidneys, as above. There appears to be some persistent decreased enhancement on the right and left which may represent pyelonephritis versus wedged shaped infarcts. Report Dictated on Final Dictated: 10/06/2019 6:52 pm Dictating Physician: MD MURPHY JENNIFER R Signed Date and Time: 10/06/2019 7:08 pm Signed by: KATHERINE, MD, MICHELLE Parrish Date and Time: 10/06/2019 6:52 Normal [facility] Calcium,Ionizedon 10-06-2019 Ionized Ca,Measured 4.10 mg/dL Low 4.30-5.20 [facility] Comment on above: Performed By: #### P T, LIPA4, LFT3, PCAL #### [facility] [address] [place], [place] pH, Ionized Calcium 7.44 Normal 7.31-7.46 [facility] Comment on above: Performed By: #### P T, LIPA4, LFT3, PCAL #### [facility] [address] [place], [place] Comp Metabolic Panelon 10-05 Calcium [Mass/Vol] 7.6 mg/dL Low 8.4-10.4 [facility] Comment on above: Performed By: #### P T, LIPA4, LFT3, PCAL #### [facility] [address], [place] ALP [Catalytic activity/Vol] 128 U/L High 38-126 [facility] Comment on above: Result Comment: Slig htly hemolysed, interpret with caution. Performed By: #### P T, LIPA4, LFT3, PCAL #### [facility] [address], [place] ALT [Catalytic activity/Vol] 26 U/L Normal 0-34 [facility] Comment on above: Result Comment: The ALT test is performed by an updated assay method. Please note that the reference intervals have been changed and are now sex specific. Performed By: #### P T, LIPA4, LFT3, PCAL #### [facility] [address], [place] Anion gap [Moles/Vol] 4 Normal [facility] Comment on above: Performed By: #### P T, LIPA4, LFT3, PCAL #### [facility] [address], [place] AST [Catalytic activity/Vol] 48 U/L High 15-46 [facility] Comment on above: Result Comment: Slig htly hemolysed, interpret with caution. Performed By: #### P T, LIPA4, LFT3, PCAL #### [address] CO2 [Moles/Vol] 24 mmol/L Normal 22-30 [facility] Comment on above: Performed By: #### P T, LIPA4, LFT3, PCAL #### [place] [address] [place], [place] Glucose [Mass/Vol] 94 mg/dL Normal 70-100 [facility] Comment on above: Performed By: #### P T, LIPA4, LFT3, PCAL #### [place] [address] [place], [place] Protein [Mass/Vol] 4.9 g/dL Low 6.3-8.2 [facility] Comment on above: Performed By: #### P T, LIPA4, LFT3, PCAL #### [address] Urea nitrogen [Mass/Vol] 2 mg/dL Low 7-20 [facility] Comment on above: Performed By: #### P T, LIPA4, LFT3, PCAL #### [address] Bilirubin [Mass/Vol] 1.0 mg/dL Normal 0.2-1.3 [facility] Comment on above: Performed By: #### P T, LIPA4, LFT3, PCAL #### [address] Creatinine [Mass/Vol] 0.33 mg/dL Low 0.52-1.25 [facility] Comment on above: Performed By: #### P T, LIPA4, LFT3, PCAL #### [address] GFR/1.73 sq M predicted among blacks MDRD (S/P/Bld) [Vol rate/Area] mL/min/{1.73_m2} Normal >60 [facility] Comment on above: Performed By: #### P T, LIPA4, LFT3, PCAL #### [place] [address] [place], [place] GFR/1.73 sq M predicted among non-blacks MDRD (S/P/Bld) [Vol rate/Area] mL/min/{1.73_m2} Normal >60 [facility] Comment on above: Result Comment: KDIG O guidelines provide the following GFR categories: Stage GFR(ml/min/1.73 m2) Terms G1 >=90 Normal or high G2 60-89 Mildly decreased* G3a 45-59 Mildly to moderately decreased G3b 30-44 Moderately to severely decreased G4 15-29 Severely decreased G5 <15 Kidney failure *Relative to young adult level. In the absence of evidence of kidney damage, neither GFR category G1 nor G2 fulfill the criteria for CKD. The CKD-EPI equation is validated in individuals 18 years of age and older. Currently the best equation for estimating glomerular filtration rate (GFR) from serum creatinine in children is the Bedside Oshea equation. It is less accurate in patients with extremes of muscle mass, restriction of dietary protein, ingestion of creatine, extra-renal metabolism of creatinine, or treatment with medications that affect renal tubular creatinine secretion. Performed By: #### P T, LIPA4, LFT3, PCAL #### [place] [address] [place], [place] Albumin [Mass/Vol] 2.4 g/dL Low 3.5-5.0 [facility] Comment on above: Performed By: #### P T, LIPA4, LFT3, PCAL #### [place] [address] [address] [place], [place] Chloride [Moles/Vol] 105 mmol/L Normal 98-107 [facility] Comment on above: Performed By: #### P T, LIPA4, LFT3, PCAL #### [address] Potassium [Moles/Vol] 4.1 mmol/L Normal 3.5-5.1 [facility] Comment on above: Result Comment: Slig htly hemolysed, interpret with caution. Performed By: #### P T, LIPA4, LFT3, PCAL #### [place] [address] [place] [address] Sodium [Moles/Vol] 133 mmol/L Low 135-145 [facility] Comment on above: Performed By: #### P T, LIPA4, LFT3, PCAL #### [facility] [address] [place] [address] Comprehensive Metabolic Pane val 10-06-2019 Albumin [Mass/Vol] 2.4 g/dL Low 3.5 - 5 g/dL [place], [place] ALP [Catalytic activity/Vol] 128 U/L High 38 - 126 U/L [place], [place] Comment on above: Slightly hemolysed, interpret with caution. ALT [Catalytic activity/Vol] 26 U/L 0 - 34 U/L [place], [place] Comment on above: The ALT test is perf ormed by an updated assay method. Please note that the reference intervals have been changed and are now sex specific. Anion gap [Moles/Vol] 4 mmol/L [place], [place] AST [Catalytic activity/Vol] 48 U/L High 15 - 46 U/L [place], [place] Comment on above: Slightly hemolysed, interpret with caution. Bilirubin Ql (U) 1.0 mg/dL 0.2 - 1.3 mg/dL [place], [place] Calcium [Mass/Vol] 7.6 mg/dL Low 8.4 - 10. 4 mg/dL [place] Chloride [Moles/Vol] 105 mmol/L 98 - 10 7 mmol/L [place] CO2 [Moles/Vol] 24 mmol/L 22 - 30 mmol/L [place] Creatinine [Mass/Vol] 0.33 mg/dL Low 0.52 - 1.25 mg/dL [place], [place] EGFR IF NonAfrican [place]an >90.0 >60 mL/min [place], [place] Comment on above: KDIGO guidelines pro vide the following GFR categories: Stage GFR(ml/min/1.73 m2) Terms G1 >=90 Normal or high G2 60-89 Mildly decreased* G3a 45-59 Mildly to moderately decreased G3b 30-44 Moderately to severely decreased G4 15-29 Severely decreased G5 <15 Kidney failure *Relative to young adult level. In the absence of evidence of kidney damage, neither GFR category G1 nor G2 fulfill the criteria for CKD. The CKD-EPI equation is validated in individuals 18 years of age and older. Currently the best equation for estimating glomerular filtration rate (GFR) from serum creatinine in children is the Bedside Oshea equation. It is less accurate in patients with extremes of muscle mass, restriction of dietary protein, ingestion of creatine, extra-renal metabolism of creatinine, or treatment with medications that affect renal tubular creatinine secretion. GFR/1.73 sq M predicted among blacks MDRD (S/P/Bld) [Vol rate/Area] mL/min/{1.73_m2} >60 mL/min [place] Glucose [Mass/Vol] 94 mg/dL 70 - 100 mg/dL [place] Potassium [Moles/Vol] 4.1 mmol/L 3.5 - 5.1 mmol/L [place] Comment on above: Slightly hemolysed, interpret with caution. Protein [Mass/Vol] 4.9 g/dL Low 6.3 - 8.2 g/dL [place] Sodium [Moles/Vol] 133 mmol/L Low 135 - 145 mmol/L [place] Urea nitrogen [Mass/Vol] 2 mg/dL Low 7 - 20 mg/dL [place] Hemoglobin AND Hematocriton 10-06-2019 Hematocrit (Bld) [Volume fraction] 34.4 % Low 35.0-47.0 [facility] Comment on above: Performed By: #### P T, LIPA4, LFT3, PCAL #### [address] [id number] Hemoglobin (Bld) [Mass/Vol] 11.4 g/dL Low 11.7-16.0 [facility] Comment on above: Performed By: #### P T, LIPA4, LFT3, PCAL #### [address] [address] Hematocrit (Bld) [Volume fraction] 31.7 % Low 35.0-47.0 [facility] Comment on above: Performed By: #### P T, LIPA4, LFT3, PCAL #### [facility] [employer] [address] Hemoglobin (Bld) [Mass/Vol] 10.3 g/dL Low 11.7-16.0 [facility] Comment on above: Performed By: #### P T, LIPA4, LFT3, PCAL #### [address] Hemoglobin and Hematocrit, B loodon 10-06-2019 Hematocrit (Bld) [Volume fraction] 34.4 % Low 35 - 47 % [place], [place] Hemoglobin (Bld) [Mass/Vol] 11.4 g/dL Low 11.7 - 16 g/dL [place] Interpretation and review of laboratory results Abnormal [place] Test Performed by [address] [address] [place], [place] Hemogram w/ Autodiffon 10-05 Abs Baso Cnt 0.1 10*3/uL Normal 0.0-0.[address] [facility] Comment on above: Performed By: #### P T, LIPA4, LFT3, PCAL #### [address] Abs Neutrophile Cnt 9.2 10*3/uL High 1.8-7.0 [facility] Comment on above: Performed By: #### P T, LIPA4, LFT3, PCAL #### [address] Basophils/100 WBC (Bld) 0.5 % Normal 0.0-2.0 [facility] Comment on above: Performed By: #### P T, LIPA4, LFT3, PCAL #### [address] Eosinophils (Bld) [#/Vol] 0.0 10*3/uL Normal 0.0-0.5 [facility] Comment on above: Performed By: #### P T, LIPA4, LFT3, PCAL #### [address] Eosinophils/100 WBC (Bld) 0.3 % Low 1.0-6.0 [facility] Comment on above: Performed By: #### P T, LIPA4, LFT3, PCAL #### [place] [address] [address] [place], [place] Erythrocyte distribution width (RBC) [Ratio] 17.2 % High 11.5-14.5 [facility] Comment on above: Performed By: #### P T, LIPA4, LFT3, PCAL #### [place] [address] [address], [place] Granulocytes/100 WBC (Bld) 78.7 % Normal 40.0-80.0 [facility] Comment on above: Performed By: #### P T, LIPA4, LFT3, PCAL #### [place] [address] [address], [place] Hematocrit (Bld) [Volume fraction] 31.2 % Low 35.0-47.0 [facility] Comment on above: Performed By: #### P T, LIPA4, LFT3, PCAL #### [place] [address] [address] [place], [place] Hemoglobin (Bld) [Mass/Vol] 10.5 g/dL Low 11.7-16.0 [facility] Comment on above: Performed By: #### P T, LIPA4, LFT3, PCAL #### [place] [address] [address] [place], [place] Lymphocytes (Bld) [#/Vol] 1.2 10*3/uL Normal 1.0-4.3 [facility] Comment on above: Performed By: #### P T, LIPA4, LFT3, PCAL #### [place] [address] [address] [place], [place] Lymphocytes/100 WBC (Bld) 10.4 % Low 20.0-40.0 [facility] Comment on above: Performed By: #### P T, LIPA4, LFT3, PCAL #### [place] [address] [address] [place], [place] MCH (RBC) [Entitic mass] 27.7 pg Normal 26.0-34.0 [facility] Comment on above: Performed By: #### P T, LIPA4, LFT3, PCAL #### [place] [address] [address] [place], [place] MCHC (RBC) [Mass/Vol] 33.5 % Normal 32.0-36.0 [facility] Comment on above: Performed By: #### P T, LIPA4, LFT3, PCAL #### [place] [address] [address], [place] MCV (RBC) [Entitic vol] 82.7 fL Normal 79.0-98.0 [facility] Comment on above: Performed By: #### P T, LIPA4, LFT3, PCAL #### [address] Monocytes (Bld) [#/Vol] 1.2 10*3/uL High 0.0-0.8 [facility] Comment on above: Performed By: #### P T, LIPA4, LFT3, PCAL #### [address] [place], [place] Monocytes/100 WBC (Bld) 10.1 % High 2.0-10.0 [facility] Comment on above: Performed By: #### P T, LIPA4, LFT3, PCAL #### [address] Platelet mean volume (Bld) [Entitic vol] 7.2 fL Low 7.4-10.4 [facility] Comment on above: Performed By: #### P T, LIPA4, LFT3, PCAL #### [place] [address] [address] [place], [place] Platelets (Bld) [#/Vol] 269 10*3/uL Normal 140-440 [facility] Comment on above: Performed By: #### P T, LIPA4, LFT3, PCAL #### [address] RBC (Bld) [#/Vol] 3.78 10*6/uL Low 3.80-5.20 [facility] Comment on above: Performed By: #### P T, LIPA4, LFT3, PCAL #### [address] [place] [address] WBC (Bld) [#/Vol] 11.7 10*3/uL High 3.6-10.7 [facility] Comment on above: Performed By: #### P T, LIPA4, LFT3, PCAL #### [address] [place] [address] Ionized Calciumon 10-06-2019 Interpretation and review of laboratory results Abnormal [place], [place] Ionized Ca 4.10 mg/dL Low 4.3 - 5.2 mg/dL [place], [place] pH (Bld) 7.44 [pH] [place], [place] Test Performed by [facility], [address] [place] [address] [place], [place] Magnesiumon 10-06-2019 Magnesium [Mass/Vol] 1.4 mg/dL Low 1.6-2.3 [facility] Comment on above: Result Comment: Slig htly hemolysed, interpret with caution. Performed By: #### P T, LIPA4, LFT3, PCAL #### [address] [place] [address] Magnesium [Mass/Vol] 1.4 mg/dL Low 1.6 - 2 .3 mg/dL [place], [place] Comment on above: Slightly hemolysed, interpret with caution. Otheron 10-06-2019 Interpretation and review of laboratory results Abnormal [place] Test Performed by [facility], [address] [place] [address] [place] Phosphoruson 10-06-2019 Phosphate [Mass/Vol] 1.5 mg/dL Low 2.5-4.5 [facility] Comment on above: Result Comment: Slig htly hemolysed, interpret with caution. Performed By: #### P T, LIPA4, LFT3, PCAL #### [address] [place] [address] Phosphate [Mass/Vol] 1.5 mg/dL Low 2.5 - 4 .5 mg/dL [place], [place] Comment on above: Slightly hemolysed, interpret with caution. Procalcitoninon 10-06-2019 Interpretation See Below Normal [facility] Comment on above: Result Comment: PCT <0.50 = Low risk of severe sepsis and/or septic shock. PCT >2.00 = High risk of severe sepsis and/or septic shock. Performed By: #### P T, LIPA4, LFT3, PCAL #### [address] [place] [address] Prothrombin Timeon 0 INR Coag (PPP) [Relative time] 1.4 High 0.9-1.1 [facility] Comment on above: Result Comment: Mark mmended Anticoagulant Therapy: SEE BELOW ----- INR of 2.0 - 3.0 : - Prophylaxis of Venous Thrombosis (high-risk surgery) - Treatment of Venous Thrombosis - Treatment of Pulmonary Embolism (Includes tissue heart valves, Acute Myocardial Infarction to prevent systemic embolism, Valvular Heart Disease, and Atrial Fibrillation) ----- INR of 2.5 - 3.5 : - Mechanical Prosthetic Valves (high risk) - If oral anticoagulant therapy is used to prevent Myocardial Infarction Performed By: #### P T, LIPA4, LFT3, PCAL #### [address] [address] [address] [place], [place] PT Coag (PPP) [Time] 14.6 s High 9.0-12.0 [facility] Comment on above: Result Comment: . Performed By: #### P T, LIPA4, LFT3, PCAL #### [facility] [address] [place], [place] Protime-INRon 10-06-2019 INR Coag (PPP) [Relative time] 1.4 {INR} [place], [place] Comment on above: Recommended Anticoag ulant Therapy: SEE BELOW ----- INR of 2.0 - 3.0 : - Prophylaxis of Venous Thrombosis (high-risk surgery) - Treatment of Venous Thrombosis - Treatment of Pulmonary Embolism (Includes tissue heart valves, Acute Myocardial Infarction to prevent systemic embolism, Valvular Heart Disease, and Atrial Fibrillation) ----- INR of 2.5 - 3.5 : - Mechanical Prosthetic Valves (high risk) - If oral anticoagulant therapy is used to prevent Myocardial Infarction Interpretation and review of laboratory results Abnormal [place], [place] PT Coag (PPP) [Time] 14.6 s High 9 - 12 s [place], [place] Comment on above: . Test Performed by [facility], [address] [place] [id number] [place] XR ABDOMEN (KUB) (SINGLE AP VIEW)on 10-06-2019 Patient Name: DORY BASURTO ---Diagnostic Radiology--- Exam Date/Time 10/06/2019 13:35:51 EDT Exam CR Abdomen AP Ordering Physician CURT FELTON Accession Number [id number] CPT4 Codes 01081 () Reason For Exam ng placement Report EXAM: CR Abdomen AP INDICATION: NG tube placement; inpatient VIEWS: Portable AP COMPARISON: 02/10/2020 CT abdomen and pelvis; abdomen radiograph 10/06/2019 at 5:59 TIME: 13:16 on 10/06/2019 FINDINGS AND IMPRESSION: An enteric tube has been placed with tip in the region of the stomach in left upper quadrant. The bowel gas pattern is nonspecific. Bilateral pleural effusions are present. Report Dictated on --- Final --- Dictated: 10/06/2019 7:08 pm Dictating Physician: MD MURPHY JENNIFER R Signed Date and Time: 10/06/2019 7:09 pm Signed by: MD MURPHY JENNIFER R Transcribed Date and Time: 10/06/2019 7:08 [place], [place] Ez[place], [facility] Incoming Radiology Results From [facility] - 10/06/2019 7:10 PM EDT Patient Name: DORY BASURTO ---Diagnostic Radiology--- Exam Date/Time 10/06/2019 13:35:51 EDT Exam CR Abdomen AP Ordering Physician CURT FELTON Accession Number [id number] CPT4 Codes 14803 () Reason For Exam ng placement Report EXAM: CR Abdomen AP INDICATION: NG tube placement; inpatient VIEWS: Portable AP COMPARISON: 02/10/2020 CT abdomen and pelvis; abdomen radiograph 10/06/2019 at 5:59 TIME: 13:16 on 10/06/2019 FINDINGS AND IMPRESSION: An enteric tube has been placed with tip in the region of the stomach in left upper quadrant. The bowel gas pattern is nonspecific. Bilateral pleural effusions are present. Report Dictated on --- Final --- Dictated: 10/06/2019 7:08 pm Dictating Physician: MD MURPHY JENNIFER R Signed Date and Time: 10/06/2019 7:09 pm Signed by: MD MURPHY JENNIFER R Transcribed Date and Time: 10/06/2019 7:08 [place], [place], [facility] Incoming Radiology Results From [facility] - 10/06/2019 9:02 AM EDT Patient Name: DORY BASURTO ---Diagnostic Radiology--- Exam Date/Time 10/06/2019 06:37:01 EDT Exam CR Abdomen AP Ordering Physician TIERNEY WHITE Accession Number [id number] CPT4 Codes 71119 () Reason For Exam Ileus Report HISTORY: Ileus A supine plain film of the abdomen was obtained. Comparisons available: 10/05/2019 Findings: There is redemonstration of gaseous distention of small and large bowel loops. It appears slightly worse when compared to 10/05/2019. Some of the bowel loops appear more distended and there appears to be some wall thickening as well. No air-fluid levels are appreciated. No large free air. Generative changes in the osseous structures. A Jensen catheter is noted. IMPRESSION: Findings suggesting worsening ileus. Report Dictated on --- Final --- Dictated: 10/06/2019 8:59 am Dictating Physician: MD HOLCOMB TOM A Signed Date and Time: 10/06/2019 9:01 am Signed by: MD HOLCOMB TOM A Transcribed Date and Time: 10/06/2019 8:59 [place] Patient Name: DORY BASURTO ---Diagnostic Radiology--- Exam Date/Time 10/06/2019 06:37:01 EDT Exam CR Abdomen AP Ordering Physician TIERNEY WHITE Accession Number [id number] CPT4 Codes 60303 () Reason For Exam Ileus Report HISTORY: Ileus A supine plain film of the abdomen was obtained. Comparisons available: 10/05/2019 Findings: There is redemonstration of gaseous distention of small and large bowel loops. It appears slightly worse when compared to 10/05/2019. Some of the bowel loops appear more distended and there appears to be some wall thickening as well. No air-fluid levels are appreciated. No large free air. Generative changes in the osseous structures. A Jensen catheter is noted. IMPRESSION: Findings suggesting worsening ileus. Report Dictated on --- Final --- Dictated: 10/06/2019 8:59 am Dictating Physician: MD HOLCOMB TOM A Signed Date and Time: 10/06/2019 9:01 am Signed by: MD HOLCOMB TOM A Transcribed Date and Time: 10/06/2019 8:59 [place] XR CHEST PORTABLEon 10-06-19 Patient Name: DORY BASURTO ---Diagnostic Radiology--- Exam Date/Time 10/06/2019 07:42:37 EDT Exam CR Chest Portable Ordering Physician [id number] PATEL Accession Number [id number] CPT4 Codes 01502 () Reason For Exam intubated Report Indication: Intubated. Comparison: 10/05/2019. Technique: A single frontal view of chest was obtained. Findings: An endotracheal tube is seen in stable position. There are small bilateral pleural effusions. There is diffuse groundglass opacity which could in part relate to layering fluid. There are superimposed reticular opacities seen throughout both lungs. There is a more dense area of opacity in the retrocardiac region Cardiac silhouette is stable. Pulmonary vasculature is not congested. Impression: Overall, probably no large interval change. Small bilateral pleural effusions with associated groundglass opacity and reticular opacities. These could relate to edema or an atypical infection. Clinical correlation is required. Left retrocardiac opacity could represent more focal infiltrate or atelectasis. Report Dictated on --- Final --- Dictated: 10/06/2019 9:01 am Dictating Physician: MD HOLCOMB TOM A Signed Date and Time: 10/06/2019 9:03 am Signed by: MD HOLCOMB TOM A Transcribed Date and Time: 10/06/2019 9:01 [place] Ez[facility], [facility] Incoming Radiology Results From [facility] - 10/06/2019 9:04 AM EDT Patient Name: DORY BASURTO ---Diagnostic Radiology--- Exam Date/Time 10/06/2019 07:42:37 EDT Exam CR Chest Portable Ordering Physician [id number] PATEL Accession Number [id number] CPT4 Codes 44671 () Reason For Exam intubated Report Indication: Intubated. Comparison: 10/05/2019. Technique: A single frontal view of chest was obtained. Findings: An endotracheal tube is seen in stable position. There are small bilateral pleural effusions. There is diffuse groundglass opacity which could in part relate to layering fluid. There are superimposed reticular opacities seen throughout both lungs. There is a more dense area of opacity in the retrocardiac region Cardiac silhouette is stable. Pulmonary vasculature is not congested. Impression: Overall, probably no large interval change. Small bilateral pleural effusions with associated groundglass opacity and reticular opacities. These could relate to edema or an atypical infection. Clinical correlation is required. Left retrocardiac opacity could represent more focal infiltrate or atelectasis. Report Dictated on --- Final --- Dictated: 10/06/2019 9:01 am Dictating Physician: MD HOLCOMB TOM A Signed Date and Time: 10/06/2019 9:03 am Signed by: MD HOLCOMB TOM A Transcribed Date and Time: 10/06/2019 9:01 [place] Arterial Blood Gaseson 10-04 CO2 [Moles/Vol] 27.5 mmol/L High 23.0-27.0 [facility] Comment on above: Performed By: #### P T, ROBERTAA4, LFT3, PCAL #### [address] [place], [place] HCO3 (Bld) [Moles/Vol] 26.1 mmol/L High 21.0-25.0 [facility] Comment on above: Performed By: #### P T, LIPA4, LFT3, PCAL #### [address] [place] Hemoglobin (Bld) [Mass/Vol] 10.7 g/dL Normal ScreenOnly [facility] Comment on above: Performed By: #### P T, LIPA4, LFT3, PCAL #### [address] [place] Oxygen (Bld) [Partial pressure] 95.1 mm[Hg] Normal 80.0-100.0 [facility] Comment on above: Performed By: #### P T, LIPA4, LFT3, PCAL #### [address] [place] Oxygen saturation in Blood 97.3 % Normal 95.0-100.0 [facility] Comment on above: Performed By: #### P T, LIPA4, LFT3, PCAL #### [address] [place] pCO2 44.6 mm[Hg] Normal 35.0-45.0 [facility] Comment on above: Performed By: #### P T, LIPA4, LFT3, PCAL #### [address] [place] pH (Bld) 7.385 Normal 7.350-7.450 [facility] Comment on above: Performed By: #### P T, LIPA4, LFT3, PCAL #### [address] Std Base Excess 0.8 mmol/L Normal -3.0-3.0 [facility] Comment on above: Performed By: #### P T, LIPA4, LFT3, PCAL #### [address] [place] FIO2 55%- Normal [facility] Comment on above: Performed By: #### P T, LIPA4, LFT3, PCAL #### [address] [place] CO2 [Moles/Vol] 28.2 mmol/L High 23.0-27.0 [facility] Comment on above: Performed By: #### P T, LIPA4, LFT3, PCAL #### [place] [address] [place] HCO3 (Bld) [Moles/Vol] 26.3 mmol/L High 21.0-25.0 [facility] Comment on above: Performed By: #### P T, LIPA4, LFT3, PCAL #### [address] [place] Hemoglobin (Bld) [Mass/Vol] 11.7 g/dL Normal ScreenOnly [facility] Comment on above: Performed By: #### P T, LIPA4, LFT3, PCAL #### [address] [place] Oxygen (Bld) [Partial pressure] 233.1 mm[Hg] High 80.0-100.0 [facility] Comment on above: Performed By: #### P T, LIPA4, LFT3, PCAL #### [address] [place] Oxygen saturation in Blood 98.8 % Normal 95.0-100.0 [facility] Comment on above: Performed By: #### P T, LIPA4, LFT3, PCAL #### [address] [place] pCO2 59.5 mm[Hg] High 35.0-45.0 [facility] Comment on above: Performed By: #### P T, LIPA4, LFT3, PCAL #### [address] [place] pH (Bld) 7.264 Low 7.350-7.450 [facility] Comment on above: Performed By: #### P T, LIPA4, LFT3, PCAL #### [facility] [address] [place] [address] Std Base Excess -1.5 mmol/L Normal -3.0-3.0 [facility] Comment on above: Performed By: #### P T, LIPA4, LFT3, PCAL #### [facility] [address] [place] [address] FIO2 100% Normal [facility] Comment on above: Performed By: #### P T, LIPA4, LFT3, PCAL #### [facility] [address] [place] [address] Basic Metabolic Panelon 09-21 Anion gap [Moles/Vol] 5 mmol/L [place], [place] Calcium [Mass/Vol] 7.4 mg/dL Low 8.4 - 10. 4 mg/dL [place] Chloride [Moles/Vol] 106 mmol/L 98 - 10 7 mmol/L [place] CO2 [Moles/Vol] 24 mmol/L 22 - 30 mmol/L [place] Creatinine [Mass/Vol] 0.36 mg/dL Low 0.52 - 1.25 mg/dL [place] EGFR IF NonAfrican [place]an >90.0 >60 mL/min [place] Comment on above: KDIGO guidelines pro vide the following GFR categories: Stage GFR(ml/min/1.73 m2) Terms G1 >=90 Normal or high G2 60-89 Mildly decreased* G3a 45-59 Mildly to moderately decreased G3b 30-44 Moderately to severely decreased G4 15-29 Severely decreased G5 <15 Kidney failure *Relative to young adult level. In the absence of evidence of kidney damage, neither GFR category G1 nor G2 fulfill the criteria for CKD. The CKD-EPI equation is validated in individuals 18 years of age and older. Currently the best equation for estimating glomerular filtration rate (GFR) from serum creatinine in children is the Bedside Oshea equation. It is less accurate in patients with extremes of muscle mass, restriction of dietary protein, ingestion of creatine, extra-renal metabolism of creatinine, or treatment with medications that affect renal tubular creatinine secretion. GFR/1.73 sq M predicted among blacks MDRD (S/P/Bld) [Vol rate/Area] mL/min/{1.73_m2} >60 mL/min [place] Glucose [Mass/Vol] 111 mg/dL High 70 - 100 mg/dL [place] Interpretation and review of laboratory results Abnormal [place] Potassium [Moles/Vol] 3.1 mmol/L Low 3.5 - 5.1 mmol/L [place] Sodium [Moles/Vol] 136 mmol/L 135 - 145 mmol/L [place] Urea nitrogen [Mass/Vol] 3 mg/dL Low 7 - 20 mg/dL [place] Test Performed by [address] [place] Calcium [Mass/Vol] 7.5 mg/dL Low 8.4-10.4 [facility] Comment on above: Performed By: #### P T, LIPA4, LFT3, PCAL #### [address] Glucose [Mass/Vol] 113 mg/dL High 70-100 [facility] Comment on above: Performed By: #### P T, LIPA4, LFT3, PCAL #### [address] Urea nitrogen [Mass/Vol] 4 mg/dL Low 7-20 [facility] Comment on above: Performed By: #### P T, LIPA4, LFT3, PCAL #### [address] Anion gap [Moles/Vol] 6 Normal [facility] Comment on above: Performed By: #### P T, LIPA4, LFT3, PCAL #### [address] CO2 [Moles/Vol] 24 mmol/L Normal 22-30 [facility] Comment on above: Performed By: #### P T, LIPA4, LFT3, PCAL #### [address] Creatinine [Mass/Vol] 0.38 mg/dL Low 0.52-1.25 [facility] Comment on above: Performed By: #### P T, LIPA4, LFT3, PCAL #### [facility] [address] [place] GFR/1.73 sq M predicted among blacks MDRD (S/P/Bld) [Vol rate/Area] mL/min/{1.73_m2} Normal >60 [facility] Comment on above: Performed By: #### P T, LIPA4, LFT3, PCAL #### [facility] [address] [place] GFR/1.73 sq M predicted among non-blacks MDRD (S/P/Bld) [Vol rate/Area] mL/min/{1.73_m2} Normal >60 [facility] Comment on above: Result Comment: KDIG O guidelines provide the following GFR categories: Stage GFR(ml/min/1.73 m2) Terms G1 >=90 Normal or high G2 60-89 Mildly decreased* G3a 45-59 Mildly to moderately decreased G3b 30-44 Moderately to severely decreased G4 15-29 Severely decreased G5 <15 Kidney failure *Relative to young adult level. In the absence of evidence of kidney damage, neither GFR category G1 nor G2 fulfill the criteria for CKD. The CKD-EPI equation is validated in individuals 18 years of age and older. Currently the best equation for estimating glomerular filtration rate (GFR) from serum creatinine in children is the Bedside Oshea equation. It is less accurate in patients with extremes of muscle mass, restriction of dietary protein, ingestion of creatine, extra-renal metabolism of creatinine, or treatment with medications that affect renal tubular creatinine secretion. Performed By: #### P T, LIPA4, LFT3, PCAL #### [facility] [address] [place] Chloride [Moles/Vol] 105 mmol/L Normal 98-107 [facility] Comment on above: Performed By: #### P T, LIPA4, LFT3, PCAL #### [facility] [address] [place] Potassium [Moles/Vol] 3.7 mmol/L Normal 3.5-5.1 [facility] Comment on above: Performed By: #### P T, LIPA4, LFT3, PCAL #### [facility] [address] [place] [address] Sodium [Moles/Vol] 134 mmol/L Low 135-145 [facility] Comment on above: Performed By: #### P T, LIPA4, LFT3, PCAL #### [facility] [address] [place] [address] Anion gap [Moles/Vol] 6 mmol/L [place], [place] Calcium [Mass/Vol] 7.5 mg/dL Low 8.4 - 10. 4 mg/dL [place] Chloride [Moles/Vol] 105 mmol/L 98 - 10 7 mmol/L [place] CO2 [Moles/Vol] 24 mmol/L 22 - 30 mmol/L [place] Creatinine [Mass/Vol] 0.38 mg/dL Low 0.52 - 1.25 mg/dL [place] EGFR IF NonAfrican [place]an >90.0 >60 mL/min [place] Comment on above: KDIGO guidelines pro vide the following GFR categories: Stage GFR(ml/min/1.73 m2) Terms G1 >=90 Normal or high G2 60-89 Mildly decreased* G3a 45-59 Mildly to moderately decreased G3b 30-44 Moderately to severely decreased G4 15-29 Severely decreased G5 <15 Kidney failure *Relative to young adult level. In the absence of evidence of kidney damage, neither GFR category G1 nor G2 fulfill the criteria for CKD. The CKD-EPI equation is validated in individuals 18 years of age and older. Currently the best equation for estimating glomerular filtration rate (GFR) from serum creatinine in children is the Bedside Oshea equation. It is less accurate in patients with extremes of muscle mass, restriction of dietary protein, ingestion of creatine, extra-renal metabolism of creatinine, or treatment with medications that affect renal tubular creatinine secretion. GFR/1.73 sq M predicted among blacks MDRD (S/P/Bld) [Vol rate/Area] mL/min/{1.73_m2} >60 mL/min [place] Glucose [Mass/Vol] 113 mg/dL High 70 - 100 mg/dL [place] Interpretation and review of laboratory results Abnormal [place] Potassium [Moles/Vol] 3.7 mmol/L 3.5 - 5.1 mmol/L [place] Sodium [Moles/Vol] 134 mmol/L Low 135 - 145 mmol/L [place] Urea nitrogen [Mass/Vol] 4 mg/dL Low 7 - 20 mg/dL [place] Test Performed by [facility], [address] [place] [address] [place] Anion gap [Moles/Vol] 7 Normal [facility] Comment on above: Performed By: #### P T, LIPA4, LFT3, PCAL #### [address] [address] Calcium [Mass/Vol] 7.7 mg/dL Low 8.4-10.4 [facility] Comment on above: Performed By: #### P T, LIPA4, LFT3, PCAL #### [address] [address] CO2 [Moles/Vol] 25 mmol/L Normal 22-30 [facility] Comment on above: Performed By: #### P T, LIPA4, LFT3, PCAL #### [address] [address] Creatinine [Mass/Vol] 0.38 mg/dL Low 0.52-1.25 [facility] Comment on above: Performed By: #### P T, LIPA4, LFT3, PCAL #### [address] [address] [place] [address] GFR/1.73 sq M predicted among blacks MDRD (S/P/Bld) [Vol rate/Area] mL/min/{1.73_m2} Normal >60 [facility] Comment on above: Performed By: #### P T, LIPA4, LFT3, PCAL #### [address] [address] [place] [address] GFR/1.73 sq M predicted among non-blacks MDRD (S/P/Bld) [Vol rate/Area] mL/min/{1.73_m2} Normal >60 [facility] Comment on above: Result Comment: KDIG O guidelines provide the following GFR categories: Stage GFR(ml/min/1.73 m2) Terms G1 >=90 Normal or high G2 60-89 Mildly decreased* G3a 45-59 Mildly to moderately decreased G3b 30-44 Moderately to severely decreased G4 15-29 Severely decreased G5 <15 Kidney failure *Relative to young adult level. In the absence of evidence of kidney damage, neither GFR category G1 nor G2 fulfill the criteria for CKD. The CKD-EPI equation is validated in individuals 18 years of age and older. Currently the best equation for estimating glomerular filtration rate (GFR) from serum creatinine in children is the Bedside Oshea equation. It is less accurate in patients with extremes of muscle mass, restriction of dietary protein, ingestion of creatine, extra-renal metabolism of creatinine, or treatment with medications that affect renal tubular creatinine secretion. Performed By: #### P T, LIPA4, LFT3, PCAL #### [facility] [address] [place] Glucose [Mass/Vol] 116 mg/dL High 70-100 [facility] Comment on above: Performed By: #### P T, LIPA4, LFT3, PCAL #### [address] [address] [place], [place] Urea nitrogen [Mass/Vol] 4 mg/dL Low 7-20 [facility] Comment on above: Performed By: #### P T, LIPA4, LFT3, PCAL #### [facility] [address] [place], [place] Chloride [Moles/Vol] 105 mmol/L Normal 98-107 [facility] Comment on above: Performed By: #### P T, LIPA4, LFT3, PCAL #### [address] [address] [place] [address] Potassium [Moles/Vol] 3.9 mmol/L Normal 3.5-5.1 [facility] Comment on above: Result Comment: Slightly hemolysed, interpret with caution. Performed By: #### P T, LIPA4, LFT3, PCAL #### [facility] [address] [place] [address] Sodium [Moles/Vol] 137 mmol/L Normal 135-145 [facility] Comment on above: Performed By: #### P T, LIPA4, LFT3, PCAL #### [facility] [address] [place] [address] Anion gap [Moles/Vol] 7 mmol/L [place], [place] Calcium [Mass/Vol] 7.7 mg/dL Low 8.4 - 10. 4 mg/dL [place] Chloride [Moles/Vol] 105 mmol/L 98 - 10 7 mmol/L [place] CO2 [Moles/Vol] 25 mmol/L 22 - 30 mmol/L [place] Creatinine [Mass/Vol] 0.38 mg/dL Low 0.52 - 1.25 mg/dL [place] EGFR IF NonAfrican [place] >90.0 >60 mL/min [place] Comment on above: KDIGO guidelines pro vide the following GFR categories: Stage GFR(ml/min/1.73 m2) Terms G1 >=90 Normal or high G2 60-89 Mildly decreased* G3a 45-59 Mildly to moderately decreased G3b 30-44 Moderately to severely decreased G4 15-29 Severely decreased G5 <15 Kidney failure *Relative to young adult level. In the absence of evidence of kidney damage, neither GFR category G1 nor G2 fulfill the criteria for CKD. The CKD-EPI equation is validated in individuals 18 years of age and older. Currently the best equation for estimating glomerular filtration rate (GFR) from serum creatinine in children is the Bedside Oshea equation. It is less accurate in patients with extremes of muscle mass, restriction of dietary protein, ingestion of creatine, extra-renal metabolism of creatinine, or treatment with medications that affect renal tubular creatinine secretion. GFR/1.73 sq M predicted among blacks MDRD (S/P/Bld) [Vol rate/Area] mL/min/{1.73_m2} >60 mL/min [place] Glucose [Mass/Vol] 116 mg/dL High 70 - 100 mg/dL [place] Interpretation and review of laboratory results Abnormal [place] Potassium [Moles/Vol] 3.9 mmol/L 3.5 - 5.1 mmol/L [place] Comment on above: Slightly hemolysed, interpret with caution. Sodium [Moles/Vol] 137 mmol/L 135 - 145 mmol/L [place] Urea nitrogen [Mass/Vol] 4 mg/dL Low 7 - 20 mg/dL [place] Test Performed by [facility], [address] [place], [place] [id number] [place] [address] Calcium [Mass/Vol] 7.2 mg/dL Low 8.4-10.4 [facility] Comment on above: Performed By: #### T SGL #### [address] [place] [address] [facility] #### LRC #### [address] [place] [address] Glucose [Mass/Vol] 96 mg/dL Normal 70-100 [facility] Comment on above: Performed By: #### T SGL #### [address] [place] [address] [facility] #### LRC #### [address] [place] [address] Urea nitrogen [Mass/Vol] 7 mg/dL Normal 7-20 [facility] Comment on above: Performed By: #### T SGL #### [address] [place] [address] [facility] #### LRC #### [address] [place] [address] Anion gap [Moles/Vol] 2 Normal [facility] Comment on above: Performed By: #### T SGL #### [facility] [address] [place] [address] [facility] #### LRC #### [address] [place] [address] CO2 [Moles/Vol] 25 mmol/L Normal 22-30 [facility] Comment on above: Performed By: #### T SGL #### [address] [place] [address] [facility] #### LRC #### [address] [place] [address] Creatinine [Mass/Vol] 0.46 mg/dL Low 0.52-1.25 [facility] Comment on above: Performed By: #### T SGL #### [facility] [address] [place] [address] [facility] #### LRC #### [address] [place] [address] GFR/1.73 sq M predicted among blacks MDRD (S/P/Bld) [Vol rate/Area] mL/min/{1.73_m2} Normal >60 [facility] Comment on above: Performed By: #### T SGL #### [address] [address] [facility] #### LRC #### [address] [place] [address] GFR/1.73 sq M predicted among non-blacks MDRD (S/P/Bld) [Vol rate/Area] mL/min/{1.73_m2} Normal >60 [facility] Comment on above: Result Comment: KDIG O guidelines provide the following GFR categories: Stage GFR(ml/min/1.73 m2) Terms G1 >=90 Normal or high G2 60-89 Mildly decreased* G3a 45-59 Mildly to moderately decreased G3b 30-44 Moderately to severely decreased G4 15-29 Severely decreased G5 <15 Kidney failure *Relative to young adult level. In the absence of evidence of kidney damage, neither GFR category G1 nor G2 fulfill the criteria for CKD. The CKD-EPI equation is validated in individuals 18 years of age and older. Currently the best equation for estimating glomerular filtration rate (GFR) from serum creatinine in children is the Bedside Oshea equation. It is less accurate in patients with extremes of muscle mass, restriction of dietary protein, ingestion of creatine, extra-renal metabolism of creatinine, or treatment with medications that affect renal tubular creatinine secretion. Performed By: #### T SGL #### [address] [place] [address] [facility] #### LRC #### [address] [place] [address] Potassium [Moles/Vol] 2.9 mmol/L Low 3.5-5.1 [facility] Comment on above: Result Comment: Slig htly hemolysed, interpret with caution. Performed By: #### T SGL #### [facility] [address] [place] [address] [facility] #### LRC #### [facility] [address] [place] [address] Chloride [Moles/Vol] 108 mmol/L High 98-107 [facility] Comment on above: Performed By: #### T SGL #### [facility] [address] [place] [address] [facility] #### LRC #### [address] [place] [address] Sodium [Moles/Vol] 135 mmol/L Normal 135-145 [facility] Comment on above: Performed By: #### T SGL #### [facility] [address] [place] [address] [facility] #### LRC #### [address] [place] [address] Blood Gas, [facility] 2019 Base Excess, Arterial 0.8 mmol/L -3 - 3 mmol/L [place] HCO3, Arterial 26.1 mmol/L High 21 - 25 mmol/L [place] Hemoglobin (Bld) [Mass/Vol] 10.7 g/dL ScreenOnly [place] Interpretation and review of laboratory results Abnormal [place] Oxygen saturation in Blood 97.3 % 95 - 100 % [place] pCO2, Arterial 44.6 mm[Hg] 35 - 45 mm[Hg] [place] pH, Arterial 7.385 [place] pO2, Arterial 95.1 mm[Hg] 80 - 100 mm[Hg] [place] Sodium [Moles/Vol] 55%- [place] TCO2, Arterial 27.5 mmol/L High 23 - 27 mmol/L [place] Test Performed by [facility], [address] [place] [address] [place] Blood gas, arterialon 2019 Base Excess, Arterial -1.5 mmol/L -3 - 3 mmol/L [place] HCO3, Arterial 26.3 mmol/L High 21 - 25 mmol/L [place] Hemoglobin (Bld) [Mass/Vol] 11.7 g/dL [facility] [place] Interpretation and review of laboratory results Abnormal [place] Oxygen saturation in Blood 98.8 % 95 - 100 % [place] pCO2, Arterial 59.5 mm[Hg] High 35 - 45 mm[Hg] [place] pH, Arterial 7.264 Low [place] pO2, Arterial 233.1 mm[Hg] High 80 - 100 mm[Hg] [place] Sodium [Moles/Vol] 100% [place] TCO2, Arterial 28.2 mmol/L High 23 - 27 mmol/L [place] Test Performed by [facility], [address] [place] [address] [place] C. difficile toxin Molecular on 10-05-2019 C. difficile toxin Molecular NEGATIVE Methodology - Real Time PCR ([employer]) Clinical judgement must be used when interpreting results. Positive results may reflect colonization. Indeterminate results suggest a new specimen be submitted. [place] Test Performed by [address] [address] Specimen Source Comment:Stool [place], [place] CR Abdomen APon 10-05-2019 CR Abdomen AP Patient Name: DORY BASURTO Diagnostic Radiology Exam Date/Time 10/05/2019 07:59:03 EDT Exam CR Abdomen AP Ordering Physician [id number] LIRA Accession Number [id number] CPT4 Codes 94333 () Reason For Exam evaluate ileus Report Indication: Ileus. Comparison 10/04/2019. Findings and impression: Abdomen frontal view. Diaphragm not completely included in the study. No gross free air. NG tube present in stable position. Persistent but improved distention of small and large bowel loops. Residual ileus possible. Please correlate clinically. Follow-up may be helpful. Report Dictated on Final Dictated: 10/05/2019 8:19 am Dictating Physician: MD GUZMAN JOHN Signed Date and Time: 10/05/2019 8:21 am Signed by: MD GUZMAN JOHN Transcribed Date and Time: 10/05/2019 8:19 Normal [facility] CR Chest Portableon 10-05-19 20 CR Chest Portable Patient Name: DORY BASURTO Diagnostic Radiology Exam Date/Time 10/05/2019 09:57:24 EDT Exam CR Chest Portable Ordering Physician [id number] TORRE Accession Number [id number] CPT4 Codes 64805 () Reason For Exam ETT placement Report CHEST: CLINICAL INDICATION: Respiratory failure TECHNIQUE: AP portable chest COMPARISON: 10/05/2019 FINDINGS: New ET tube terminating 4.9 cm above the gerald. An enteric tube terminates overlying the gastric fundus. The cardiomediastinal silhouette appears unchanged from the prior exam. Multifocal opacities are again present in both lungs. Moderate bilateral pleural effusions, which appear more pronounced compared to the prior radiograph. The osseous structures are unremarkable. IMPRESSION: New ET tube present. Multifocal opacities in both lungs. More pronounced bilateral pleural effusions. Report Dictated on Workstation: [id number] Final Dictated: 10/05/2019 10:36 am Dictating Physician: MD SHAY NICHOLAS Signed Date and Time: 10/05/2019 10:37 am Signed by: MD SHAY NICHOLAS Transcribed Date and Time: 10/05/2019 10:36 [facility] CR Chest Portable Patient Name: DORY BASURTO Diagnostic Radiology Exam Date/Time 10/05/2019 07:58:34 EDT Exam CR Chest Portable Ordering Physician TIERNEY WHITE Accession Number [id number] CPT4 Codes 23565 () Reason For Exam SOB Report EXAM TYPE: RADIOLOGIC EXAMINATION, CHEST, SINGLE VIEW FRONTAL (CXR SINGLE VIEW) EXAM DATE AND TIME: 10/05/2019 7:58 AM EDT INDICATION: Respiratory distress COMPARISON: 10/04/2019 TECHNIQUE: A single frontal view of the thorax was obtained and reviewed. Special views: None. IMPRESSION: 1. Lines/Tubes/Devices/Arnold rdware: Leads.. Please confirm position/function of devices/catheters clinically. 2. Lungs: Abnormal. Infiltrate densities. Worsened appearance compared to prior. Consider progressive pneumonia depending on the clinical setting. Patient rotated. 3. Pleura: Small effusions. No significant pneumothorax. 4. Heart and mediastinum: Limited due to technique. 5. Upper abdomen: No acute process seen. 6. Thorax:No acute bony process Report Dictated on Final Dictated: 10/05/2019 8:27 am Dictating Physician: MD GUZMAN JOHN Signed Date and Time: 10/05/2019 8:28 am Signed by: MD GUZMAN JOHN Transcribed Date and Time: 10/05/2019 8:27 Normal [facility] CULTURE URINEon 10-05-2019 CULTURE URINE CULTURE URINE --> Status: F Normal urogenital carole present. Normal [facility] Comment on above: Performed By: #### H EMOG, MG3, BMP3 #### [address] [address] Calcium,Ionizedon 10-05-2019 Ionized Ca,Measured 3.90 mg/dL Low 4.30-5.20 [facility] Comment on above: Performed By: #### T SGL #### [address] #### LRC #### [place] [address] pH, Ionized Calcium 7.36 Normal 7.31-7.46 [facility] Comment on above: Performed By: #### T SGL #### [address] #### LRC #### [address] [address] [place] [address] Clostridium difficile PCRon 10-05-2019 Clostridium difficile PCR Clostridium difficile by PCR --> Status: F NEGATIVE Methodology - Real Time PCR ([employer]) Clinical judgement must be used when interpreting results. Positive results may reflect colonization. Indeterminate results suggest a new specimen be submitted. Methodology - Real Time PCR ([employer]) Clinical judgement must be used when interpreting results. Positive results may reflect colonization. Indeterminate results suggest a new specimen be submitted. Normal [facility] Comment on above: Order Comment: Speci men Source Comment:Stool Performed By: #### P T, LIPA4, LFT3, PCAL #### [facility] [address] [place] [address] Comp Metabolic Panelon 10-04 Calcium [Mass/Vol] 7.6 mg/dL Low 8.4-10.4 [facility] Comment on above: Performed By: #### T SGL #### [address] [place], [place] [address] [place] [address] #### LRC #### [address] [place] [address] ALP [Catalytic activity/Vol] 128 U/L High 38-126 [facility] Comment on above: Performed By: #### T SGL #### [address] [place], [place] [address] [place] [address] #### LRC #### [address] [place] [address] ALT [Catalytic activity/Vol] 29 U/L Normal 0-34 [facility] Comment on above: Result Comment: The ALT test is performed by an updated assay method. Please note that the reference intervals have been changed and are now sex specific. Performed By: #### T SGL #### [facility] [address] [place] [address] [facility] #### LRC #### [address] [place] [address] Anion gap [Moles/Vol] 9 Normal [facility] Comment on above: Performed By: #### T SGL #### [facility] [address] [place], [place] [address] [place] [address] #### LRC #### [facility] [address] [place] [address] AST [Catalytic activity/Vol] 49 U/L High 15-46 [facility] Comment on above: Performed By: #### T SGL #### [facility] [address] [place] [address] [facility] #### LRC #### [facility] [address] [place] [address] Bilirubin [Mass/Vol] 0.5 mg/dL Normal 0.2-1.3 [facility] Comment on above: Performed By: #### T SGL #### [facility] [address] [place] [address] [facility] #### LRC #### [facility] [address] [place] [address] CO2 [Moles/Vol] 22 mmol/L Normal 22-30 [facility] Comment on above: Performed By: #### T SGL #### [address] [place] [address] [facility] #### LRC #### [address] [place] [address] Creatinine [Mass/Vol] 0.44 mg/dL Low 0.52-1.25 [facility] Comment on above: Performed By: #### T SGL #### [address] [place] [facility] [place] [address] [facility] #### LRC #### [address] [place] [address] GFR/1.73 sq M predicted among blacks MDRD (S/P/Bld) [Vol rate/Area] mL/min/{1.73_m2} Normal >60 [facility] Comment on above: Performed By: #### T SGL #### [facility] [address] [place] [address] [facility] #### LRC #### [facility] [address] [place] [address] GFR/1.73 sq M predicted among non-blacks MDRD (S/P/Bld) [Vol rate/Area] mL/min/{1.73_m2} Normal >60 [facility] Comment on above: Result Comment: KDIG O guidelines provide the following GFR categories: Stage GFR(ml/min/1.73 m2) Terms G1 >=90 Normal or high G2 60-89 Mildly decreased* G3a 45-59 Mildly to moderately decreased G3b 30-44 Moderately to severely decreased G4 15-29 Severely decreased G5 <15 Kidney failure *Relative to young adult level. In the absence of evidence of kidney damage, neither GFR category G1 nor G2 fulfill the criteria for CKD. The CKD-EPI equation is validated in individuals 18 years of age and older. Currently the best equation for estimating glomerular filtration rate (GFR) from serum creatinine in children is the Bedside Oshea equation. It is less accurate in patients with extremes of muscle mass, restriction of dietary protein, ingestion of creatine, extra-renal metabolism of creatinine, or treatment with medications that affect renal tubular creatinine secretion. Performed By: #### T SGL #### [address] [place], [place] [address] [place] [address] #### LRC #### [address] [place] [address] Glucose [Mass/Vol] 97 mg/dL Normal 70-100 [facility] Comment on above: Performed By: #### T SGL #### [address] [place], [place] [address] [place] [address] #### LRC #### [address] [place] [address] Protein [Mass/Vol] 5.0 g/dL Low 6.3-8.2 [facility] Comment on above: Performed By: #### T SGL #### [address] [place] [address] [facility] #### LRC #### [address] [place] [address] Urea nitrogen [Mass/Vol] 6 mg/dL Low 7-20 [facility] Comment on above: Performed By: #### T SGL #### [address] [place] [address] [facility] #### LRC #### [address] [place] [address] Potassium [Moles/Vol] 2.9 mmol/L Low 3.5-5.1 [facility] Comment on above: Performed By: #### T SGL #### [facility] [address] [place] [address] [facility] #### LRC #### [facility] [address] [place] [address] Albumin [Mass/Vol] 2.7 g/dL Low 3.5-5.0 [facility] Comment on above: Performed By: #### T SGL #### [facility] [address] [place] [address] [facility] #### LRC #### [facility] [address] [place] [address] Sodium [Moles/Vol] 137 mmol/L Normal 135-145 [facility] Comment on above: Performed By: #### T SGL #### [facility] [address] [place] [address] [facility] #### LRC #### [facility] [address] [place] [address] Chloride [Moles/Vol] 106 mmol/L Normal 98-107 [facility] Comment on above: Performed By: #### T SGL #### [facility] [address] [place] [address] [facility] #### LRC #### [facility] [address] [place] [address] Comprehensive Metabolic Pane val 10-05-2019 Albumin [Mass/Vol] 2.7 g/dL Low 3.5 - 5 g/dL [place] ALP [Catalytic activity/Vol] 128 U/L High 38 - 126 U/L [place] ALT [Catalytic activity/Vol] 29 U/L 0 - 34 U/L [place] Comment on above: The ALT test is perf ormed by an updated assay method. Please note that the reference intervals have been changed and are now sex specific. Anion gap [Moles/Vol] 9 mmol/L [place], [place] AST [Catalytic activity/Vol] 49 U/L High 15 - 46 U/L [place] Bilirubin Ql (U) 0.5 mg/dL 0.2 - 1.3 mg/dL [place] Calcium [Mass/Vol] 7.6 mg/dL Low 8.4 - 10. 4 mg/dL [place] Chloride [Moles/Vol] 106 mmol/L 98 - 10 7 mmol/L [place] CO2 [Moles/Vol] 22 mmol/L 22 - 30 mmol/L [place] Creatinine [Mass/Vol] 0.44 mg/dL Low 0.52 - 1.25 mg/dL [place] EGFR IF NonAfrican [place]an >90.0 >60 mL/min [place] Comment on above: KDIGO guidelines pro vide the following GFR categories: Stage GFR(ml/min/1.73 m2) Terms G1 >=90 Normal or high G2 60-89 Mildly decreased* G3a 45-59 Mildly to moderately decreased G3b 30-44 Moderately to severely decreased G4 15-29 Severely decreased G5 <15 Kidney failure *Relative to young adult level. In the absence of evidence of kidney damage, neither GFR category G1 nor G2 fulfill the criteria for CKD. The CKD-EPI equation is validated in individuals 18 years of age and older. Currently the best equation for estimating glomerular filtration rate (GFR) from serum creatinine in children is the Bedside Oshea equation. It is less accurate in patients with extremes of muscle mass, restriction of dietary protein, ingestion of creatine, extra-renal metabolism of creatinine, or treatment with medications that affect renal tubular creatinine secretion. GFR/1.73 sq M predicted among blacks MDRD (S/P/Bld) [Vol rate/Area] mL/min/{1.73_m2} >60 mL/min [place] Glucose [Mass/Vol] 97 mg/dL 70 - 100 mg/dL [place] Potassium [Moles/Vol] 2.9 mmol/L Low 3.5 - 5.1 mmol/L [place] Protein [Mass/Vol] 5.0 g/dL Low 6.3 - 8.2 g/dL [place] Sodium [Moles/Vol] 137 mmol/L 135 - 145 mmol/L [place] Urea nitrogen [Mass/Vol] 6 mg/dL Low 7 - 20 mg/dL [place] Culture, Urineon 10-05-2019 Bacteria identified Cx Nom (U) Normal urogenital carole present. [place] Test Performed by [facility], [address] [place] [address] [place] GASTROINTESTINAL PCR PANELon 10-05-2019 GASTROINTESTINAL PCR PANEL GASTROINTESTINAL PCR PANEL --> Status: F NEGATIVE: No targets were detected by the [employer] Gastrointestinal PCR Panel. _ The [employer] Gastrointestinal PCR Panel can detect the following targets: Campylobacter, Plesiomonas shigelloides, Salmonella, Vibrio species, Vibrio cholerae, Yersinia enterocolitica, Shiga toxin-producing E coli (STEC) including E coli O157, Enterotoxigenic E coli (ETEC), Shigella/Enteroinvasiv e E coli (EIEC), Cryptosporidium, Cyclospora cayetanensis, Entamoeba histolytica, Giardia lamblia, Adenovirus F 40/41, Astrovirus, Norovirus GI/GII, Rotavirus A, Sapovirus Gastrointestinal PCR Panel. _ The [employer] Gastrointestinal PCR Panel can detect the following targets: Campylobacter, Plesiomonas shigelloides, Salmonella, Vibrio species, Vibrio cholerae, Yersinia enterocolitica, Shiga toxin-producing E coli (STEC) including E coli O157, Enterotoxigenic E coli (ETEC), Shigella/Enteroinvasiv e E coli (EIEC), Cryptosporidium, Cyclospora cayetanensis, Entamoeba histolytica, Giardia lamblia, Adenovirus F 40/41, Astrovirus, Norovirus GI/GII, Rotavirus A, Sapovirus Normal [facility] Comment on above: Order Comment: Speci men Source Comment:Stool Performed By: #### P T, LIPA4, LFT3, PCAL #### [address] [address] Gastrointestinal Panel by BRODY Serrano 10-05-2019 Gastrointestinal PCR Panel NEGATIVE: No targets were detected by the [employer] Gastrointestinal PCR Panel. _ The [employer] Gastrointestinal PCR Panel can detect the following targets: Campylobacter, Plesiomonas shigelloides, Salmonella, Vibrio species, Vibrio cholerae, Yersinia enterocolitica, Shiga toxin-producing E coli (STEC) including E coli O157, Enterotoxigenic E coli (ETEC), Shigella/Enteroinvasiv e E coli (EIEC), Cryptosporidium, Cyclospora cayetanensis, Entamoeba histolytica, Giardia lamblia, Adenovirus F 40/41, Astrovirus, Norovirus GI/GII, Rotavirus A, Sapovirus [place] Test Performed by [address] [address] Specimen Source Comment:Stool [place] Gram Stainon 10-05-2019 INR Coag (Bld) [Relative time] Few polymorphonuclear cells/lpf. Few epithelial cells/lpf. No organisms seen. [place] Test Performed by [address] [address] Specimen Source Comment:Sputum Expectorated [place] INR Coag (Bld) [Relative time] Few polymorphonuclear cells/lpf. No epithelial cells/lpf. No organisms seen. [place] Test Performed by [facility], [address] [place] [address] Specimen Source Comment:Endotracheal [place] Hematologyon 10-05-2019 ABO and Rh group Nom (Bld) 5100 [place] Hemoglobin AND Hematocriton 10-05-2019 Hematocrit (Bld) [Volume fraction] 32.4 % Low 35.0-47.0 [facility] Comment on above: Performed By: #### P T, LIPA4, LFT3, PCAL #### [address] Hemoglobin (Bld) [Mass/Vol] 10.6 g/dL Low 11.7-16.0 [facility] Comment on above: Performed By: #### P T, LIPA4, LFT3, PCAL #### [address] Hematocrit (Bld) [Volume fraction] 35.3 % Normal 35.0-47.0 [facility] Comment on above: Performed By: #### P T, LIPA4, LFT3, PCAL #### [address] Hemoglobin (Bld) [Mass/Vol] 11.6 g/dL Low 11.7-16.0 [facility] Comment on above: Performed By: #### P T, LIPA4, LFT3, PCAL #### [address] [place] [address] Hematocrit (Bld) [Volume fraction] 31.3 % Low 35.0-47.0 [facility] Comment on above: Performed By: #### T SGL #### [address] [place] [address] [facility] #### LRC #### [address] [place] [address] Hemoglobin (Bld) [Mass/Vol] 10.1 g/dL Low 11.7-16.0 [facility] Comment on above: Performed By: #### T SGL #### [address] [place] [address] [facility] #### LRC #### [address] [place] [address] Hemoglobin and Hematocrit, B [facility] 10-05-2019 Hematocrit (Bld) [Volume fraction] 31.7 % Low 35 - 47 % [facility], [place] Hemoglobin (Bld) [Mass/Vol] 10.3 g/dL Low 11.7 - 16 g/dL [facility], [place] Interpretation and review of laboratory results Abnormal [facility] [place] Test Performed by [facility], [facility] [place] [address] [facility] [place] Hematocrit (Bld) [Volume fraction] 32.4 % Low 35 - 47 % [facility] [place] Hemoglobin (Bld) [Mass/Vol] 10.6 g/dL Low 11.7 - 16 g/dL [facility], [place] Interpretation and review of laboratory results Abnormal [facility]- [place], [place] Test Performed by [facility], [facility] [place] [address] [facility] [place], [place] Hematocrit (Bld) [Volume fraction] 35.3 % 35 - 47 % [facility], [place] Hemoglobin (Bld) [Mass/Vol] 11.6 g/dL Low 11.7 - 16 g/dL [place], [place] Interpretation and review of laboratory results Abnormal [place], [place] Test Performed by [facility], [address] [place] [id number] [place] [address] Hematocrit (Bld) [Volume fraction] 31.3 % Low 35 - 47 % [place], [place] Hemoglobin (Bld) [Mass/Vol] 10.1 g/dL Low 11.7 - 16 g/dL [place], [place] Interpretation and review of laboratory results Abnormal [place] Test Performed by [id number] [place] [address] Hemogram w/ Autodiffon 10-04 Abs Baso Cnt 0.0 10*3/uL Normal 0.0-0.[address] [facility] Comment on above: Performed By: #### T SGL #### [id number] [place] [address] #### LRC #### [address] [address] [place] [address] Abs Neutrophile Cnt 7.8 10*3/uL High 1.8-7.0 [facility] Comment on above: Performed By: #### T SGL #### [address] [place], [place] [id number] [place] [address] #### LRC #### [address] [address] [place] [address] Basophils/100 WBC (Bld) 0.4 % Normal 0.0-2.0 [facility] Comment on above: Performed By: #### T SGL #### [address] [place], [place] [id number] [place] [address] #### LRC #### [address] [address] Eosinophils (Bld) [#/Vol] 0.0 10*3/uL Normal 0.0-0.5 [facility] Comment on above: Performed By: #### T SGL #### [address] [place], [place] [id number] [place] [address] #### LRC #### [address] [address] [place] [address] Eosinophils/100 WBC (Bld) 0.4 % Low 1.0-6.0 [facility] Comment on above: Performed By: #### T SGL #### [address] [place], [place] [address] [place] [address] #### LRC #### [address] [place] [address] Erythrocyte distribution width (RBC) [Ratio] 17.7 % High 11.5-14.5 [facility] Comment on above: Performed By: #### T SGL #### [address] [place], [place] [id number] [place] [address] #### LRC #### [address] [place] [address] Granulocytes/100 WBC (Bld) 73.8 % Normal 40.0-80.0 [facility] Comment on above: Performed By: #### T SGL #### [address] [place], [place] [address] [place] [address] #### LRC #### [address] [address] [place] [address] Hematocrit (Bld) [Volume fraction] 20.6 % Low 35.0-47.0 [facility] Comment on above: Performed By: #### T SGL #### [address] [place], [place] [id number] [place] [address] #### LRC #### [address] [address] [place] [address] Hemoglobin (Bld) [Mass/Vol] 6.7 g/dL Critically low 11.7-16.0 [facility] Comment on above: Result Comment: repe ated Performed By: #### T SGL #### [address] [place], [place] [id number] [place] [address] #### LRC #### [address] [address] [place] [address] Lymphocytes (Bld) [#/Vol] 1.7 10*3/uL Normal 1.0-4.3 [facility] Comment on above: Performed By: #### T SGL #### [address] #### LRC #### [address] [address] [place] [address] Lymphocytes/100 WBC (Bld) 16.1 % Low 20.0-40.0 [facility] Comment on above: Performed By: #### T SGL #### [address] #### LRC #### [address] [address] [place] [address] MCH (RBC) [Entitic mass] 26.3 pg Normal 26.0-34.0 [facility] Comment on above: Performed By: #### T SGL #### [address] #### LRC #### [address] [place] [address] MCHC (RBC) [Mass/Vol] 32.4 % Normal 32.0-36.0 [facility] Comment on above: Performed By: #### T SGL #### [address] #### LRC #### [address] [place] [address] MCV (RBC) [Entitic vol] 81.0 fL Normal 79.0-98.0 [facility] Comment on above: Performed By: #### T SGL #### [address] #### LRC #### [address] [place] [address] Monocytes (Bld) [#/Vol] 1.0 10*3/uL High 0.0-0.8 [facility] Comment on above: Performed By: #### T SGL #### [address] #### LRC #### [facility] [address] [place] [address] Monocytes/100 WBC (Bld) 9.3 % Normal 2.0-10.0 [facility] Comment on above: Performed By: #### T SGL #### [facility] [address] [place] [address] [facility] #### LRC #### [facility] [address] [place] [address] Platelet mean volume (Bld) [Entitic vol] 7.2 fL Low 7.4-10.4 [facility] Comment on above: Performed By: #### T SGL #### [address] [place] [address] [facility] #### LRC #### [address] [place] [address] Platelets (Bld) [#/Vol] 332 10*3/uL Normal 140-440 [facility] Comment on above: Performed By: #### T SGL #### [address] [place] [address] [facility] #### LRC #### [address] [place] [address] RBC (Bld) [#/Vol] 2.54 10*6/uL Low 3.80-5.20 [facility] Comment on above: Performed By: #### T SGL #### [address] [place] [address] [facility] #### LRC #### [address] [place] [address] WBC (Bld) [#/Vol] 10.6 10*3/uL Normal 3.6-10.7 [facility] Comment on above: Performed By: #### T SGL #### [address] [place] [address] [facility] #### LRC #### [address] [place] [address] Ionized Calciumon 10-05-2019 Interpretation and review of laboratory results Abnormal [facility]- [place], [place] Ionized Ca 3.90 mg/dL Low 4.3 - 5.2 mg/dL [place], [place] pH (Bld) 7.36 [pH] [place], [place] Test Performed by [facility], [address] [place] [id number] [place] [address] Leukodepleted Red Cellson Leukodepleted Red Cells Leukodepleted Re d Cells: [id number] transfused 10/05/19 00:01 JMV Unit Blood Type: O Unit Blood Rh: POS Blood Product Code: AS1 Unit Number: [id number] Unit Status: transfused Barcoded Unit Number: =[id number] Barcoded Product Code: = Barcoded ABO/Rh: =%5100 Unit Expiration: Unit Volume Transfused: 300 Unit Transfusion Start Date/Time: Leukodepleted Red Cells: [id number] transfused 10/05/19 02:30 JMV Unit Blood Type: O Unit Blood Rh: POS Blood Product Code: AS1 Unit Number: [id number] Unit Status: transfused Barcoded Unit Number: =[id number] Barcoded Product Code: = Barcoded ABO/Rh: =%5100 Unit Expiration: Unit Volume Transfused: 300 Unit Transfusion Start Date/Time: Normal [facility] Comment on above: Performed By: #### T SGL #### [address] [place] [address] [facility] #### LRC #### [address] [place] [address] Magnesiumon 10-05-2019 Magnesium [Mass/Vol] 1.6 mg/dL Normal 1.6-2.3 [facility] Comment on above: Performed By: #### T SGL #### [address] [place] [address] [facility] #### LRC #### [address] [place] [address] Magnesium [Mass/Vol] 1.6 mg/dL 1.6 - 2 .3 mg/dL [place], [place] Metabolic Panelon 10-05-2019 Sodium [Moles/Vol] transfused [place], [place] Sodium [Moles/Vol] [id number] mmol/L [place], [place] Sodium [Moles/Vol] [id number] [place], [place] Otheron 10-05-2019 Interpretation and review of laboratory results Abnormal [place], [place] Test Performed by [address] [place], [place] [id number] [place] [address] PREPARE RBC (CROSSMATCH), 2 Unitson 10-05-2019 Blood product unit ID (Dose) [#] [id number] [place], [place] Blood product unit ID (Dose) [#] [id number] [place], [place] Phosphoruson 10-05-2019 Phosphate [Mass/Vol] 2.2 mg/dL Low 2.5-4.5 [facility] Comment on above: Performed By: #### T SGL #### [address] [place], [place] [id number] [place] [address] #### LRC #### [address] [address] [place] [address] Phosphate [Mass/Vol] 2.2 mg/dL Low 2.5 - 4 .5 mg/dL [place] Procalcitoninon 10-05-2019 Procalcitonin 1.82 ng/mL Abnormal <0.[address] [facility] Comment on above: Performed By: #### P T, LIPA4, LFT3, PCAL #### [address] [address] [place] [address] Interpretation and review of laboratory results Abnormal [place], [place] Procalcitonin 1.82 ng/mL Abnormal <0.10 [place], [place] Sodium [Moles/Vol] See Below [place], [place] Comment on above: PCT <0.50 = Low risk of severe sepsis and/or septic shock. PCT >2.00 = High risk of severe sepsis and/or septic shock. Test Performed by [address] [place], [place] [id number] [place] [address] Prothrombin Timeon 0 INR Coag (PPP) [Relative time] 1.3 High 0.9-1.1 [facility] Comment on above: Result Comment: Mark mmended Anticoagulant Therapy: SEE BELOW ----- INR of 2.0 - 3.0 : - Prophylaxis of Venous Thrombosis (high-risk surgery) - Treatment of Venous Thrombosis - Treatment of Pulmonary Embolism (Includes tissue heart valves, Acute Myocardial Infarction to prevent systemic embolism, Valvular Heart Disease, and Atrial Fibrillation) ----- INR of 2.5 - 3.5 : - Mechanical Prosthetic Valves (high risk) - If oral anticoagulant therapy is used to prevent Myocardial Infarction Performed By: #### T SGL #### [address] [address] [place] [address] [facility] #### LRC #### [address] [address] PT Coag (PPP) [Time] 14.0 s High 9.0-12.0 [facility] Comment on above: Result Comment: . Performed By: #### T SGL #### [address] [place] [address] [facility] #### LRC #### [address] [address] [place] [address] Protime-INRon 10-05-2019 INR Coag (PPP) [Relative time] 1.3 {INR} High [place], [place] Comment on above: Recommended Anticoag ulant Therapy: SEE BELOW ----- INR of 2.0 - 3.0 : - Prophylaxis of Venous Thrombosis (high-risk surgery) - Treatment of Venous Thrombosis - Treatment of Pulmonary Embolism (Includes tissue heart valves, Acute Myocardial Infarction to prevent systemic embolism, Valvular Heart Disease, and Atrial Fibrillation) ----- INR of 2.5 - 3.5 : - Mechanical Prosthetic Valves (high risk) - If oral anticoagulant therapy is used to prevent Myocardial Infarction Interpretation and review of laboratory results Abnormal [place], [place] PT Coag (PPP) [Time] 14 s High 9 - 12 s [place], [place] Comment on above: . Test Performed by [facility], [facility] [place] [address] [place], [place] STAIN GRAMon 10-05-2019 STAIN GRAM STAIN GRAM --> Statu s: F Few polymorphonuclear cells/lpf. Few epithelial cells/lpf. No organisms seen. Few epithelial cells/lpf. No organisms seen. Normal [facility] Comment on above: Order Comment: Speci men Source Comment:Sputum Expectorated Performed By: #### P T, LIPA4, LFT3, PCAL #### [facility] [address] [place] [address] STAIN GRAM STAIN GRAM --> Statu s: F Few polymorphonuclear cells/lpf. No epithelial cells/lpf. No organisms seen. No epithelial cells/lpf. No organisms seen. Normal [facility] Comment on above: Order Comment: Speci men Source Comment:Endotracheal Performed By: #### P T, LIPA4, LFT3, PCAL #### [address] [address] Vancomycin Troughon 10-05-19 20 Vancomycin Trough 6.1 ug/mL Low 15.0-20.0 [facility] Comment on above: Result Comment: . Performed By: #### P T, LIPA4, LFT3, PCAL #### [address] [address] Vancomycin, Troughon 10-04- 020 Interpretation and review of laboratory results Abnormal [place], [place] Vancomycin Tr 6.1 ug/mL Low 15 - 20 ug/mL [place], [place] Comment on above: . [facility], [address] [place] [address] XR ABDOMEN (KUB) (SINGLE AP VIEW)on 10-05-2019 Patient Name: DORY BASURTO ---Diagnostic Radiology--- Exam Date/Time 10/05/2019 07:59:03 EDT Exam CR Abdomen AP Ordering Physician [id number] LIRA Accession Number [id number] CPT4 Codes 30324 () Reason For Exam evaluate ileus Report Indication: Ileus. Comparison 10/04/2019. Findings and impression: Abdomen frontal view. Diaphragm not completely included in the study. No gross free air. NG tube present in stable position. Persistent but improved distention of small and large bowel loops. Residual ileus possible. Please correlate clinically. Follow-up may be helpful. Report Dictated on --- Final --- Dictated: 10/05/2019 8:19 am Dictating Physician: MD GUZMAN JOHN Signed Date and Time: 10/05/2019 8:21 am Signed by: MD GUZMAN JOHN Transcribed Date and Time: 10/05/2019 8:[address] [facility], [place] Ez[place], [facility] Incoming Radiology Results From [facility] - 10/05/2019 8:22 AM EDT Patient Name: DORY BASURTO ---Diagnostic Radiology--- Exam Date/Time 10/05/2019 07:59:03 EDT Exam CR Abdomen AP Ordering Physician [id number] NELSON Accession Number [id number] CPT4 Codes 74150 () Reason For Exam evaluate ileus Report Indication: Ileus. Comparison 10/04/2019. Findings and impression: Abdomen frontal view. Diaphragm not completely included in the study. No gross free air. NG tube present in stable position. Persistent but improved distention of small and large bowel loops. Residual ileus possible. Please correlate clinically. Follow-up may be helpful. Report Dictated on --- Final --- Dictated: 10/05/2019 8:19 am Dictating Physician: MD GUZMAN JOHN Signed Date and Time: 10/05/2019 8:21 am Signed by: MD GUZMAN JOHN Transcribed Date and Time: 10/05/2019 8:19 [facility] [employer] X[facility] CHEST PORTABLEon 10-05-19 [facility] Results From [facility] - 10/05/2019 10:38 AM EDT Patient Name: DORY BASURTO ---Diagnostic Radiology--- Exam Date/Time 10/05/2019 09:57:24 EDT Exam CR Chest Portable Ordering Physician [id number] PATEL Accession Number [id number] CPT4 Codes 02046 () Reason For Exam ETT placement Report CHEST: CLINICAL INDICATION: Respiratory failure TECHNIQUE: AP portable chest COMPARISON: 10/05/2019 FINDINGS: New ET tube terminating 4.9 cm above the gerald. An enteric tube terminates overlying the gastric fundus. The cardiomediastinal silhouette appears unchanged from the prior exam. Multifocal opacities are again present in both lungs. Moderate bilateral pleural effusions, which appear more pronounced compared to the prior radiograph. The osseous structures are unremarkable. IMPRESSION: New ET tube present. Multifocal opacities in both lungs. More pronounced bilateral pleural effusions. Report Dictated on Workstation: [id number] --- Final --- Dictated: 10/05/2019 10:36 am Dictating Physician: MD SHAY NICHOLAS Signed Date and Time: 10/05/2019 10:37 am Signed by: MD SHAY NICHOLAS Transcribed Date and Time: 10/05/2019 10:36 [place] Patient Name: DORY BASURTO ---Diagnostic Radiology--- Exam Date/Time 10/05/2019 09:57:24 EDT Exam CR Chest Portable Ordering Physician BIPIN REDDY Accession Number [id number] CPT4 Codes 62973 () Reason For Exam ETT placement Report CHEST: CLINICAL INDICATION: Respiratory failure TECHNIQUE: AP portable chest COMPARISON: 10/05/2019 FINDINGS: New ET tube terminating 4.9 cm above the gerald. An enteric tube terminates overlying the gastric fundus. The cardiomediastinal silhouette appears unchanged from the prior exam. Multifocal opacities are again present in both lungs. Moderate bilateral pleural effusions, which appear more pronounced compared to the prior radiograph. The osseous structures are unremarkable. IMPRESSION: New ET tube present. Multifocal opacities in both lungs. More pronounced bilateral pleural effusions. Report Dictated on Workstation: [id number] --- Final --- Dictated: 10/05/2019 10:36 am Dictating Physician: MD SHAY NICHOLAS Signed Date and Time: 10/05/2019 10:37 am Signed by: MD SHAY NICHOLAS Transcribed Date and Time: 10/05/2019 10:36 [place], [place] [facility], [facility] Incoming Radiology Results From [facility] - 10/05/2019 8:29 AM EDT Patient Name: DORY BASURTO ---Diagnostic Radiology--- Exam Date/Time 10/05/2019 07:58:34 EDT Exam CR Chest Portable Ordering Physician TIERNEY WHITE Accession Number [id number] CPT4 Codes 74638 () Reason For Exam SOB Report EXAM TYPE: RADIOLOGIC EXAMINATION, CHEST, SINGLE VIEW FRONTAL (CXR SINGLE VIEW) EXAM DATE AND TIME: 10/05/2019 7:58 AM EDT INDICATION: Respiratory distress COMPARISON: 10/04/2019 TECHNIQUE: A single frontal view of the thorax was obtained and reviewed. Special views: None. IMPRESSION: 1. Lines/Tubes/Devices/Arnold rdware: Leads.. Please confirm position/function of devices/catheters clinically. 2. Lungs: Abnormal. Infiltrate densities. Worsened appearance compared to prior. Consider progressive pneumonia depending on the clinical setting. Patient rotated. 3. Pleura: Small effusions. No significant pneumothorax. 4. Heart and mediastinum: Limited due to technique. 5. Upper abdomen: No acute process seen. 6. Thorax:No acute bony process Report Dictated on --- Final --- Dictated: 10/05/2019 8:27 am Dictating Physician: MD GUZMAN JOHN Signed Date and Time: 10/05/2019 8:28 am Signed by: MD GUZMAN JOHN Transcribed Date and Time: 10/05/2019 8:27 [place] Patient Name: DORY BASURTO ---Diagnostic Radiology--- Exam Date/Time 10/05/2019 07:58:34 EDT Exam CR Chest Portable Ordering Physician TIERNEY WHITE Accession Number [id number] CPT4 Codes 79123 () Reason For Exam SOB Report EXAM TYPE: RADIOLOGIC EXAMINATION, CHEST, SINGLE VIEW FRONTAL (CXR SINGLE VIEW) EXAM DATE AND TIME: 10/05/2019 7:58 AM EDT INDICATION: Respiratory distress COMPARISON: 10/04/2019 TECHNIQUE: A single frontal view of the thorax was obtained and reviewed. Special views: None. IMPRESSION: 1. Lines/Tubes/Devices/Arnold rdware: Leads.. Please confirm position/function of devices/catheters clinically. 2. Lungs: Abnormal. Infiltrate densities. Worsened appearance compared to prior. Consider progressive pneumonia depending on the clinical setting. Patient rotated. 3. Pleura: Small effusions. No significant pneumothorax. 4. Heart and mediastinum: Limited due to technique. 5. Upper abdomen: No acute process seen. 6. Thorax:No acute bony process Report Dictated on --- Final --- Dictated: 10/05/2019 8:27 am Dictating Physician: MD GUZMAN JOHN Signed Date and Time: 10/05/2019 8:28 am Signed by: MD GUZMAN JOHN Transcribed Date and Time: 10/05/2019 8:27 [place], [place] Add On Lab Teston 10-04-2019 Sodium [Moles/Vol] Accepted [place], [place] Comment on above: Specimen available & acceptable for analysis. Test Performed by [facility], [address] [place] [address] Add on test from HISon 10-03 Add on test from HIS Accepted Normal [facility] Comment on above: Result Comment: Spec imen available & acceptable for analysis. Performed By: #### T SGL #### [address] #### LRC #### [address] [place] [address] Basic Metabolic Panelon 09-21 Anion gap [Moles/Vol] 2 mmol/L [place], [place] Calcium [Mass/Vol] 7.2 mg/dL Low 8.4 - 10. 4 mg/dL [place], [place] Chloride [Moles/Vol] 108 mmol/L High 98 - 10 7 mmol/L [place], [place] CO2 [Moles/Vol] 25 mmol/L 22 - 30 mmol/L [place] Creatinine [Mass/Vol] 0.46 mg/dL Low 0.52 - 1.25 mg/dL [place], [place] EGFR IF NonAfrican [place]an >90.0 >60 mL/min [place], [place] Comment on above: KDIGO guidelines pro vide the following GFR categories: Stage GFR(ml/min/1.73 m2) Terms G1 >=90 Normal or high G2 60-89 Mildly decreased* G3a 45-59 Mildly to moderately decreased G3b 30-44 Moderately to severely decreased G4 15-29 Severely decreased G5 <15 Kidney failure *Relative to young adult level. In the absence of evidence of kidney damage, neither GFR category G1 nor G2 fulfill the criteria for CKD. The CKD-EPI equation is validated in individuals 18 years of age and older. Currently the best equation for estimating glomerular filtration rate (GFR) from serum creatinine in children is the Bedside Oshea equation. It is less accurate in patients with extremes of muscle mass, restriction of dietary protein, ingestion of creatine, extra-renal metabolism of creatinine, or treatment with medications that affect renal tubular creatinine secretion. GFR/1.73 sq M predicted among blacks MDRD (S/P/Bld) [Vol rate/Area] mL/min/{1.73_m2} >60 mL/min [place], [place] Glucose [Mass/Vol] 96 mg/dL 70 - 100 mg/dL [place] Interpretation and review of laboratory results Abnormal [place], [place] Potassium [Moles/Vol] 2.9 mmol/L Low 3.5 - 5.1 mmol/L [place], [place] Comment on above: Slightly hemolysed, interpret with caution. Sodium [Moles/Vol] 135 mmol/L 135 - 145 mmol/L [place], [place] Urea nitrogen [Mass/Vol] 7 mg/dL 7 - 20 mg/dL [place], [place] Test Performed by [facility], [facility] [place] [address] [place] Calcium [Mass/Vol] 7.5 mg/dL Low 8.4-10.4 [facility] Comment on above: Performed By: #### T SGL #### [address] [place] [address] [facility] #### LRC #### [facility] [address] [place] [address] Anion gap [Moles/Vol] 3 Normal [facility] Comment on above: Performed By: #### T SGL #### [facility] [address] [place] [address] [facility] #### LRC #### [facility] [address] [place] [address] CO2 [Moles/Vol] 22 mmol/L Normal 22-30 [facility] Comment on above: Performed By: #### T SGL #### [facility] [address] [place] [address] [facility] #### LRC #### [facility] [address] [place] [address] Creatinine [Mass/Vol] 0.73 mg/dL Normal 0.52-1.25 [facility] Comment on above: Performed By: #### T SGL #### [facility] [address] [place] [address] [facility] #### LRC #### [address] [place] [address] GFR/1.73 sq M predicted among blacks MDRD (S/P/Bld) [Vol rate/Area] mL/min/{1.73_m2} Normal >60 [facility] Comment on above: Performed By: #### T SGL #### [facility] [address] [place] [address] [facility] #### LRC #### [address] [place] [address] GFR/1.73 sq M predicted among non-blacks MDRD (S/P/Bld) [Vol rate/Area] 86.4 mL/min/{1.73_m2} Normal >60 [facility] Comment on above: Result Comment: KDIG O guidelines provide the following GFR categories: Stage GFR(ml/min/1.73 m2) Terms G1 >=90 Normal or high G2 60-89 Mildly decreased* G3a 45-59 Mildly to moderately decreased G3b 30-44 Moderately to severely decreased G4 15-29 Severely decreased G5 <15 Kidney failure *Relative to young adult level. In the absence of evidence of kidney damage, neither GFR category G1 nor G2 fulfill the criteria for CKD. The CKD-EPI equation is validated in individuals 18 years of age and older. Currently the best equation for estimating glomerular filtration rate (GFR) from serum creatinine in children is the Bedside Oshea equation. It is less accurate in patients with extremes of muscle mass, restriction of dietary protein, ingestion of creatine, extra-renal metabolism of creatinine, or treatment with medications that affect renal tubular creatinine secretion. Performed By: #### T SGL #### [facility] [address] [place] [address] [facility] #### LRC #### [address] [place] [address] Glucose [Mass/Vol] 74 mg/dL Normal 70-100 [facility] Comment on above: Performed By: #### T SGL #### [address] [place] [address] [facility] #### LRC #### [address] [place] [address] Urea nitrogen [Mass/Vol] 10 mg/dL Normal 7-20 [facility] Comment on above: Performed By: #### T SGL #### [place] [address] [place] [address] [facility] #### LRC #### [address] [place] [address] Chloride [Moles/Vol] 109 mmol/L High 98-107 [facility] Comment on above: Performed By: #### T SGL #### [address] [place] [address] [facility] #### L[facility] #### [address] [place] [address] Potassium [Moles/Vol] 3.3 mmol/L Low 3.5-5.1 [facility] Comment on above: Performed By: #### T SGL #### [address] [place] [address] [facility] #### [facility] #### [address] [place] [address] Sodium [Moles/Vol] 134 mmol/L Low 135-145 [facility] Comment on above: Performed By: #### T SGL #### [address] [place] [address] [facility] #### [facility] #### [facility] [address] [place] [address] Anion gap [Moles/Vol] 3 mmol/L [place], [place] Calcium [Mass/Vol] 7.5 mg/dL Low 8.4 - 10. 4 mg/dL [place] Chloride [Moles/Vol] 109 mmol/L High 98 - 10 7 mmol/L [place] CO2 [Moles/Vol] 22 mmol/L 22 - 30 mmol/L [place] Creatinine [Mass/Vol] 0.73 mg/dL 0.52 - 1.25 mg/dL [place] EGFR IF NonAfrican [place]an 86.4 mL/min >60 [place] Comment on above: KDIGO guidelines pro vide the following GFR categories: Stage GFR(ml/min/1.73 m2) Terms G1 >=90 Normal or high G2 60-89 Mildly decreased* G3a 45-59 Mildly to moderately decreased G3b 30-44 Moderately to severely decreased G4 15-29 Severely decreased G5 <15 Kidney failure *Relative to young adult level. In the absence of evidence of kidney damage, neither GFR category G1 nor G2 fulfill the criteria for CKD. The CKD-EPI equation is validated in individuals 18 years of age and older. Currently the best equation for estimating glomerular filtration rate (GFR) from serum creatinine in children is the Bedside Oshea equation. It is less accurate in patients with extremes of muscle mass, restriction of dietary protein, ingestion of creatine, extra-renal metabolism of creatinine, or treatment with medications that affect renal tubular creatinine secretion. GFR/1.73 sq M predicted among blacks MDRD (S/P/Bld) [Vol rate/Area] mL/min/{1.73_m2} >60 mL/min [place], [place] Glucose [Mass/Vol] 74 mg/dL 70 - 100 mg/dL [place] Interpretation and review of laboratory results Abnormal [place] Potassium [Moles/Vol] 3.3 mmol/L Low 3.5 - 5.1 mmol/L [place] Sodium [Moles/Vol] 134 mmol/L Low 135 - 145 mmol/L [facility] [place] Urea nitrogen [Mass/Vol] 10 mg/dL 7 - 20 mg/dL [facility], [place] Test Performed by [facility], [address] [place] [address] [place], [place] Anion gap [Moles/Vol] 3 Normal [facility] Comment on above: Performed By: #### T SGL #### [facility] [address] [place] [address] [facility] #### [facility] #### [address] [place] [address] Calcium [Mass/Vol] 6.9 mg/dL Low 8.4-10.4 [facility] Comment on above: Performed By: #### T SGL #### [address] [place] [address] [facility] #### L[facility] #### [address] [place] [address] CO2 [Moles/Vol] 27 mmol/L Normal 22-30 [facility] Comment on above: Performed By: #### T SGL #### [address] [place] [address] [facility] #### L[facility] #### [address] [place] [address] Creatinine [Mass/Vol] 0.83 mg/dL Normal 0.52-1.25 [facility] Comment on above: Performed By: #### T SGL #### [address] [place] [address] [facility] #### [facility] #### [address] [place] [address] GFR/1.73 sq M predicted among blacks MDRD (S/P/Bld) [Vol rate/Area] 85.8 mL/min/{1.73_m2} Normal >60 [facility] Comment on above: Performed By: #### T SGL #### [facility] [address] [place] [address] [facility] #### [facility] #### [address] [place] [address] GFR/1.73 sq M predicted among non-blacks MDRD (S/P/Bld) [Vol rate/Area] 74.0 mL/min/{1.73_m2} Normal >60 [facility] Comment on above: Result Comment: KDIG O guidelines provide the following GFR categories: Stage GFR(ml/min/1.73 m2) Terms G1 >=90 Normal or high G2 60-89 Mildly decreased* G3a 45-59 Mildly to moderately decreased G3b 30-44 Moderately to severely decreased G4 15-29 Severely decreased G5 <15 Kidney failure *Relative to young adult level. In the absence of evidence of kidney damage, neither GFR category G1 nor G2 fulfill the criteria for CKD. The CKD-EPI equation is validated in individuals 18 years of age and older. Currently the best equation for estimating glomerular filtration rate (GFR) from serum creatinine in children is the Bedside Oshea equation. It is less accurate in patients with extremes of muscle mass, restriction of dietary protein, ingestion of creatine, extra-renal metabolism of creatinine, or treatment with medications that affect renal tubular creatinine secretion. Performed By: #### T SGL #### [address] [place], [place] [id number] [place] [address] #### LRC #### [address] [place] [address] Glucose [Mass/Vol] 90 mg/dL Normal 70-100 [facility] Comment on above: Performed By: #### T SGL #### [address] [place] [address] [facility] #### [facility] #### [address] [place] [address] Urea nitrogen [Mass/Vol] 12 mg/dL Normal 7-20 [facility] Comment on above: Performed By: #### T SGL #### [address] [place] [address] [facility] #### [facility] #### [address] [place] [address] Chloride [Moles/Vol] 106 mmol/L Normal 98-107 [facility] Comment on above: Performed By: #### T SGL #### [address] [place] [address] [facility] #### [facility] #### [facility] [address] [place] [address] Potassium [Moles/Vol] 3.4 mmol/L Low 3.5-5.1 [facility] Comment on above: Result Comment: Slzaria htly hemolysed, interpret with caution. Performed By: #### T SGL #### [facility] [address] [place] [address] [facility] #### [facility] #### [facility] [address] [place] [address] Sodium [Moles/Vol] 135 mmol/L Normal 135-145 [facility] Comment on above: Performed By: #### T SGL #### [facility] [address] [place] [address] [facility] #### [facility] #### [address] [place] [address] Anion gap [Moles/Vol] 3 mmol/L [place], [place] Calcium [Mass/Vol] 6.9 mg/dL Low 8.4 - 10. 4 mg/dL [place] Chloride [Moles/Vol] 106 mmol/L 98 - 10 7 mmol/L [place] CO2 [Moles/Vol] 27 mmol/L 22 - 30 mmol/L [place] Creatinine [Mass/Vol] 0.83 mg/dL 0.52 - 1.25 mg/dL [place] EGFR IF NonAfrican [place]an 74.0 mL/min >60 [place] Comment on above: KDIGO guidelines pro vide the following GFR categories: Stage GFR(ml/min/1.73 m2) Terms G1 >=90 Normal or high G2 60-89 Mildly decreased* G3a 45-59 Mildly to moderately decreased G3b 30-44 Moderately to severely decreased G4 15-29 Severely decreased G5 <15 Kidney failure *Relative to young adult level. In the absence of evidence of kidney damage, neither GFR category G1 nor G2 fulfill the criteria for CKD. The CKD-EPI equation is validated in individuals 18 years of age and older. Currently the best equation for estimating glomerular filtration rate (GFR) from serum creatinine in children is the Bedside Oshea equation. It is less accurate in patients with extremes of muscle mass, restriction of dietary protein, ingestion of creatine, extra-renal metabolism of creatinine, or treatment with medications that affect renal tubular creatinine secretion. GFR/1.73 sq M predicted among blacks MDRD (S/P/Bld) [Vol rate/Area] 85.8 mL/min/{1.73_m2} >60 [place] Glucose [Mass/Vol] 90 mg/dL 70 - 100 mg/dL [place] Interpretation and review of laboratory results Abnormal [place] Potassium [Moles/Vol] 3.4 mmol/L Low 3.5 - 5.1 mmol/L [place] Comment on above: Slightly hemolysed, interpret with caution. Sodium [Moles/Vol] 135 mmol/L 135 - 145 mmol/L [place] Urea nitrogen [Mass/Vol] 12 mg/dL 7 - 20 mg/dL [place] Test Performed by [address] [address] [place] CBC auto differentialon - Absolute Baso # 0.0 10*3/uL 0 - 0.2 10*3/uL [place] Absolute Neut # 7.8 10*3/uL High 1.8 - 7 10*3/uL [place] Basophils/100 WBC (Bld) 0.4 % 0 - 2 % [place] Eosinophils (Bld) [#/Vol] 0.0 10*3/uL 0 - 0.5 10*3/uL [place] Eosinophils/100 WBC (Bld) 0.4 % Low 1 - 6 % [place] Erythrocyte distribution width (RBC) [Ratio] 17.7 % High 11.5 - 14.5 % [place] Granulocytes/100 WBC (Bld) 73.8 % 40 - 80 % [place] Hematocrit (Bld) [Volume fraction] 20.6 % Low 35 - 47 % [place] Hemoglobin (Bld) [Mass/Vol] 6.7 g/dL Critically low 11.7 - 16 g/dL [place] Comment on above: repeated Interpretation and review of laboratory results Abnormal [place] Lymphocytes (Bld) [#/Vol] 1.7 10*3/uL 1 - 4.3 10*3/uL [place] Lymphocytes/100 WBC (Bld) 16.1 % Low 20 - 40 % [place] MCH (RBC) [Entitic mass] 26.3 pg 26 - 34 pg [place] MCHC (RBC) [Mass/Vol] 32.4 % 32 - 36 % [place] MCV (RBC) [Entitic vol] 81.0 fL 79 - 98 fL [place] Monocytes (Bld) [#/Vol] 1.0 10*3/uL High 0 - 0.8 10*3/uL [place] Monocytes/100 WBC (Bld) 9.3 % 2 - 10 % [place] Platelet mean volume (Bld) [Entitic vol] 7.2 fL Low 7.4 - 10.4 fL [place] Platelets (Bld) [#/Vol] 332 10*3/uL 140 - 440 10*3/uL [place] RBC (Bld) [#/Vol] 2.54 10*6/uL Low 3.8 - 5.2 10*6/uL [place] WBC (Bld) [#/Vol] 10.6 10*3/uL 3.6 - 10.7 10*3/uL [place] Test Performed by [facility], [address] [place] [address] [place] Absolute Baso # 0.0 10*3/uL 0 - 0.2 10*3/uL [place] Absolute Neut # 11.3 10*3/uL High 1.8 - 7 10*3/uL [place] Basophils/100 WBC (Bld) 0.3 % 0 - 2 % [place] Eosinophils (Bld) [#/Vol] 0.0 10*3/uL 0 - 0.5 10*3/uL [place] Eosinophils/100 WBC (Bld) 0.1 % Low 1 - 6 % [place] Erythrocyte distribution width (RBC) [Ratio] 17.9 % High 11.5 - 14.5 % [place] Granulocytes/100 WBC (Bld) 81.0 % High 40 - 80 % [place] Hematocrit (Bld) [Volume fraction] 23.2 % Low 35 - 47 % [place] Hemoglobin (Bld) [Mass/Vol] 7.4 g/dL Low 11.7 - 16 g/dL [place] Interpretation and review of laboratory results Abnormal [place] Lymphocytes (Bld) [#/Vol] 1.6 10*3/uL 1 - 4.3 10*3/uL [place] Lymphocytes/100 WBC (Bld) 11.3 % Low 20 - 40 % [place] MCH (RBC) [Entitic mass] 25.8 pg Low 26 - 34 pg [place] MCHC (RBC) [Mass/Vol] 31.8 % Low 32 - 36 % [place] MCV (RBC) [Entitic vol] 81.1 fL 79 - 98 fL [place] Monocytes (Bld) [#/Vol] 1.0 10*3/uL High 0 - 0.8 10*3/uL [place] Monocytes/100 WBC (Bld) 7.3 % 2 - 10 % [place] Platelet mean volume (Bld) [Entitic vol] 7.0 fL Low 7.4 - 10.4 fL [place] Platelets (Bld) [#/Vol] 405 10*3/uL 140 - 440 10*3/uL [place] RBC (Bld) [#/Vol] 2.87 10*6/uL Low 3.8 - 5.2 10*6/uL [place] WBC (Bld) [#/Vol] 13.9 10*3/uL High 3.6 - 10.7 10*3/uL [place] Test Performed by [facility], [address] [place] [address] [facility], [place] CR Abdomen APon 10-04-2019 CR Abdomen AP Patient Name: DORY BASURTO Diagnostic Radiology Exam Date/Time 10/04/2019 14:11:35 EDT Exam CR Abdomen AP Ordering Physician EDENILSON BURNS MD, CHARLES V Accession Number [id number] CPT4 Codes 79548 () Reason For Exam check placement of NG tube Report KUB History: Tube placement COMPARISON: 10/04/2019, 11:14 AM IMPRESSION: AP supine view of the upper abdomen shows kinked distal enteric tube with its tip overlying the gastric fundus. There is moderate amount of gas and stools in mildly dilated small and large bowel loops that could reflect ileus, not significantly changed from the prior exam. Routine evaluation of any possible free air requires concurrent upright or decubitus views that are not available. Continued evaluation suggested. Report Dictated on Final Dictated: 10/04/2019 2:01 pm Dictating Physician: MD TONIE, TAYLOR Signed Date and Time: 10/04/2019 2:04 pm Signed by: MD SCHILLING AHMAD Transcribed Date and Time: 10/04/2019 2:01 Normal [facility] CR Abdomen AP Patient Name: DORY BASURTO Diagnostic Radiology Exam Date/Time 10/04/2019 11:36:12 EDT Exam CR Abdomen AP Ordering Physician CORY MEI Accession Number [id number] CPT4 Codes 77979 () Reason For Exam re-evaluate ileus Report KUB CLINICAL INDICATION: Evaluate ileus COMPARISON: 10/03/2019 Supine images of the abdomen were obtained. There is diffuse small bowel and colonic gas with mild distention, increased compared to the prior exam. Bladder is partially distended with contrast opacified urine from CT exam done yesterday. No definite filling defects are noted. There are no acute interval changes in the osseous structures. IMPRESSION: Diffuse ileus which appears slightly greater than the prior exam Report Dictated on Workstation: [id number] Final Dictated: 10/04/2019 12:11 pm Dictating Physician: MD CHANDLER DIANE Signed Date and Time: 10/04/2019 12:15 pm Signed by: MD CHANDLER DIANE Transcribed Date and Time: 10/04/2019 12:11 Normal [facility] CR Chest Portableon 10-04-19 20 CR Chest Portable Patient Name: DORY BASURTO Diagnostic Radiology Exam Date/Time 10/04/2019 06:35:18 EDT Exam CR Chest Portable Ordering Physician CORY MEI Accession Number [id number] CPT4 Codes 39019 () Reason For Exam SOB Report CHEST CLINICAL INDICATION: Shortness of breath TECHNIQUE: AP COMPARISON: Abdominal radiograph 10/03/2019 FINDINGS: The cardiac silhouette is mildly enlarged. There is no evidence of a pneumothorax or pleural effusion. Prominent interstitial markings are noted bilaterally. An NG tube is noted overlying the mid esophagus. Degenerative changes are noted throughout the thoracic spine.. IMPRESSION: 1. Prominent interstitial markings which may represent pulmonary vascular congestion versus infectious etiology. Correlate clinically. 2. Interval retraction of the NG tube seen overlying the mid esophagus. These findings were discussed with RN: Abelino at 7:41am on 10/04/2019 Report Dictated on Final Dictated: 10/04/2019 7:35 am Dictating Physician: DO ROGERS RACHEL Signed Date and Time: 10/04/2019 7:42 am Signed by: DO ROGERS RACHEL Transcribed Date and Time: 10/04/2019 7:35 Normal [facility] Calcium, Ionizedon 0 Ionized Ca 4.40 mg/dL 4.3 - 5.2 mg/dL [place] pH (Bld) 7.36 [pH] [place] Test Performed by [facility], [address] [place] [address] [place] Calcium,Ionizedon 10-04-2019 Ionized Ca,Measured 4.40 mg/dL Normal 4.30-5.20 [facility] Comment on above: Performed By: #### T SGL #### [facility] [address] [place] [address] [facility] #### L[facility] #### [facility] [address] [place] [facility] [place] [address] pH, Ionized Calcium 7.36 Normal 7.31-7.46 [facility] Comment on above: Performed By: #### T SGL #### [facility] [address] [place] [address] [facility] #### L[facility] #### [place] [address] [place] [address] Comp Metabolic Panelon 10-03 ALT [Catalytic activity/Vol] 33 U/L Normal 0-34 [facility] Comment on above: Result Comment: The ALT test is performed by an updated assay method. Please note that the reference intervals have been changed and are now sex specific. Performed By: #### T SGL #### [place] [address] [place] [address] [facility] #### [facility] #### [address] [address] [place] [address] Calcium [Mass/Vol] 7.8 mg/dL Low 8.4-10.4 [facility] Comment on above: Performed By: #### T SGL #### [facility] [address] [place] [facility] [place] [address] [facility] #### [facility] #### [address] [address] [place] [address] ALP [Catalytic activity/Vol] 148 U/L High 38-126 [facility] Comment on above: Performed By: #### T SGL #### [facility] [address] [place] [address] [facility] #### L[facility] #### [address] [place] [address] Anion gap [Moles/Vol] 2 Normal [facility] Comment on above: Performed By: #### T SGL #### [facility] [address] [place] [address] [facility] #### L[facility] #### [address] [place] [address] AST [Catalytic activity/Vol] 47 U/L High 15-46 [facility] Comment on above: Performed By: #### T SGL #### [facility] [address] [place] [facility] [place] [address] [facility] #### L[facility] #### [facility] [address] [place] [address] Bilirubin [Mass/Vol] 0.2 mg/dL Normal 0.2-1.3 [facility] Comment on above: Performed By: #### T SGL #### [facility] [address] [place] [facility] [place] [address] [facility] #### L[facility] #### [address] [place] [address] CO2 [Moles/Vol] 21 mmol/L Low 22-30 [facility] Comment on above: Performed By: #### T SGL #### [place] [address] [place] [address] [facility] #### L[facility] #### [address] [place] [address] Creatinine [Mass/Vol] 0.90 mg/dL Normal 0.52-1.25 [facility] Comment on above: Performed By: #### T SGL #### [address] [place] [facility] [place] [address] [facility] #### L[facility] #### [address] [place] [address] GFR/1.73 sq M predicted among blacks MDRD (S/P/Bld) [Vol rate/Area] 77.8 mL/min/{1.73_m2} Normal >60 [facility] Comment on above: Performed By: #### T SGL #### [place] [address] [facility] [place] [address] [facility] #### L[facility] #### [address] [address] GFR/1.73 sq M predicted among non-blacks MDRD (S/P/Bld) [Vol rate/Area] 67.1 mL/min/{1.73_m2} Normal >60 [facility] Comment on above: Result Comment: KDIG O guidelines provide the following GFR categories: Stage GFR(ml/min/1.73 m2) Terms G1 >=90 Normal or high G2 60-89 Mildly decreased* G3a 45-59 Mildly to moderately decreased G3b 30-44 Moderately to severely decreased G4 15-29 Severely decreased G5 <15 Kidney failure *Relative to young adult level. In the absence of evidence of kidney damage, neither GFR category G1 nor G2 fulfill the criteria for CKD. The CKD-EPI equation is validated in individuals 18 years of age and older. Currently the best equation for estimating glomerular filtration rate (GFR) from serum creatinine in children is the Bedside Oshea equation. It is less accurate in patients with extremes of muscle mass, restriction of dietary protein, ingestion of creatine, extra-renal metabolism of creatinine, or treatment with medications that affect renal tubular creatinine secretion. Performed By: #### T SGL #### [address] [place], [place] [address] [place] [address] #### LRC #### [address] [place] [address] Glucose [Mass/Vol] 87 mg/dL Normal 70-100 [facility] Comment on above: Performed By: #### T SGL #### [address] [place], [place] [address] [place] [address] #### LRC #### [address] [place] [address] Protein [Mass/Vol] 4.3 g/dL Low 6.3-8.2 [facility] Comment on above: Performed By: #### T SGL #### [place] [address] [place] [address] [facility] #### L[facility] #### [address] [place] [address] Urea nitrogen [Mass/Vol] 13 mg/dL Normal 7-20 [facility] Comment on above: Performed By: #### T SGL #### [place] [address] [place] [address] [facility] #### L[facility] #### [place] [place] [address] Potassium [Moles/Vol] 3.1 mmol/L Low 3.5-5.1 [facility] Comment on above: Performed By: #### T SGL #### [facility] [address] [place] [address] [facility] #### LRC #### [facility] [address] [place] [address] Sodium [Moles/Vol] 132 mmol/L Low 135-145 [facility] Comment on above: Performed By: #### T SGL #### [facility] [address] [place] [address] [facility] #### LRC #### [facility] [address] [place] [address] Albumin [Mass/Vol] 1.7 g/dL Low 3.5-5.0 [facility] Comment on above: Performed By: #### T SGL #### [facility] [address] [place] [address] [facility] #### LRC #### [facility] [address] [place] [address] Chloride [Moles/Vol] 109 mmol/L High 98-107 [facility] Comment on above: Performed By: #### T SGL #### [facility] [address] [place] [address] [facility] #### L[facility] #### [facility] [address] [place] [address] Comprehensive Metabolic Pane val 10-04-2019 Albumin [Mass/Vol] 1.7 g/dL Low 3.5 - 5 g/dL [place] ALP [Catalytic activity/Vol] 148 U/L High 38 - 126 U/L [place] ALT [Catalytic activity/Vol] 33 U/L 0 - 34 U/L [place] Comment on above: The ALT test is perf ormed by an updated assay method. Please note that the reference intervals have been changed and are now sex specific. Anion gap [Moles/Vol] 2 mmol/L [place], [place] AST [Catalytic activity/Vol] 47 U/L High 15 - 46 U/L [place] Bilirubin Ql (U) 0.2 mg/dL 0.2 - 1.3 mg/dL [place] Calcium [Mass/Vol] 7.8 mg/dL Low 8.4 - 10. 4 mg/dL [place] Chloride [Moles/Vol] 109 mmol/L High 98 - 10 7 mmol/L [place] CO2 [Moles/Vol] 21 mmol/L Low 22 - 30 mmol/L [place] Creatinine [Mass/Vol] 0.9 mg/dL 0.52 - 1.25 mg/dL [place] EGFR IF NonAfrican [place]an 67.1 mL/min >60 [place] Comment on above: KDIGO guidelines pro vide the following GFR categories: Stage GFR(ml/min/1.73 m2) Terms G1 >=90 Normal or high G2 60-89 Mildly decreased* G3a 45-59 Mildly to moderately decreased G3b 30-44 Moderately to severely decreased G4 15-29 Severely decreased G5 <15 Kidney failure *Relative to young adult level. In the absence of evidence of kidney damage, neither GFR category G1 nor G2 fulfill the criteria for CKD. The CKD-EPI equation is validated in individuals 18 years of age and older. Currently the best equation for estimating glomerular filtration rate (GFR) from serum creatinine in children is the Bedside Oshea equation. It is less accurate in patients with extremes of muscle mass, restriction of dietary protein, ingestion of creatine, extra-renal metabolism of creatinine, or treatment with medications that affect renal tubular creatinine secretion. GFR/1.73 sq M predicted among blacks MDRD (S/P/Bld) [Vol rate/Area] 77.8 mL/min/{1.73_m2} >60 [place] Glucose [Mass/Vol] 87 mg/dL 70 - 100 mg/dL [place] Interpretation and review of laboratory results Abnormal [place] Potassium [Moles/Vol] 3.1 mmol/L Low 3.5 - 5.1 mmol/L [place] Protein [Mass/Vol] 4.3 g/dL Low 6.3 - 8.2 g/dL [place] Sodium [Moles/Vol] 132 mmol/L Low 135 - 145 mmol/L [place] Urea nitrogen [Mass/Vol] 13 mg/dL 7 - 20 mg/dL [place] Haptoglobinon 10-04-2019 Haptoglobin 202.2 mg/dL High 30.0-200.0 [facility] Comment on above: Result Comment: Slig htly hemolysed, interpret with caution. Performed By: #### T SGL #### [facility] [address] [place] [address] [facility] #### L[facility] #### [place] [place] [address] Haptoglobin 202.2 mg/dL High 30 - 200 mg/dL [place] Comment on above: Slightly hemolysed, interpret with caution. Interpretation and review of laboratory results Abnormal [place] Test Performed by [place] [address] [place], [place] [id number] [place] [address] Hemoglobin AND Hematocriton 10-04-2019 Hematocrit (Bld) [Volume fraction] 26.2 % Low 35.0-47.0 [facility] Comment on above: Performed By: #### T SGL #### [place] [address] [place] [address] [facility] #### LRC #### [address] [place] [address] Hemoglobin (Bld) [Mass/Vol] 8.3 g/dL Low 11.7-16.0 [facility] Comment on above: Performed By: #### T SGL #### [facility] [address] [place] [address] [facility] #### L[facility] #### [address] [place] [address] Hematocrit (Bld) [Volume fraction] 24.8 % Low 35.0-47.0 [facility] Comment on above: Performed By: #### T SGL #### [facility] [address] [place] [address] [facility] #### LRC #### [address] [place] [address] Hemoglobin (Bld) [Mass/Vol] 7.9 g/dL Low 11.7-16.0 [facility] Comment on above: Performed By: #### T SGL #### [address] [place] [address] [facility] #### LRC #### [address] [place] [address] Hemoglobin and Hematocrit, B loodon 10-04-2019 Hematocrit (Bld) [Volume fraction] 26.2 % Low 35 - 47 % [place], [place] Hemoglobin (Bld) [Mass/Vol] 8.3 g/dL Low 11.7 - 16 g/dL [place] Interpretation and review of laboratory results Abnormal [place], [place] Test Performed by [address] [place], [place] [id number] [place] [address] Hematocrit (Bld) [Volume fraction] 24.8 % Low 35 - 47 % [place] Hemoglobin (Bld) [Mass/Vol] 7.9 g/dL Low 11.7 - 16 g/dL [place] Interpretation and review of laboratory results Abnormal [place], [place] Test Performed by [address] [place], [place] [id number] [place] [address] Hemogram w/ Autodiffon 10-03 Abs Baso Cnt 0.0 10*3/uL Normal 0.0-0.[address] [facility] Comment on above: Performed By: #### T SGL #### [address] [place] [address] [facility] #### L[facility] #### [address] [place] [address] Abs Neutrophile Cnt 11.3 10*3/uL High 1.8-7.0 [facility] Comment on above: Performed By: #### T SGL #### [address] [place] [address] [facility] #### LRC #### [address] [place] [address] Basophils/100 WBC (Bld) 0.3 % Normal 0.0-2.0 [facility] Comment on above: Performed By: #### T SGL #### [address] [place] [address] [facility] #### LRC #### [address] [place] [address] Eosinophils (Bld) [#/Vol] 0.0 10*3/uL Normal 0.0-0.5 [facility] Comment on above: Performed By: #### T SGL #### [address] [place], [place] [id number] [place] [address] #### LRC #### [address] [place] [address] Eosinophils/100 WBC (Bld) 0.1 % Low 1.0-6.0 [facility] Comment on above: Performed By: #### T SGL #### [address] [place], [place] [id number] [place] [address] #### LRC #### [address] [place] [address] Erythrocyte distribution width (RBC) [Ratio] 17.9 % High 11.5-14.5 [facility] Comment on above: Performed By: #### T SGL #### [address] [place], [place] [id number] [place] [address] #### LRC #### [address] [place] [address] Granulocytes/100 WBC (Bld) 81.0 % High 40.0-80.0 [facility] Comment on above: Performed By: #### T SGL #### [address] [place], [place] [id number] [place] [address] #### LRC #### [address] [place] [address] Hematocrit (Bld) [Volume fraction] 23.2 % Low 35.0-47.0 [facility] Comment on above: Performed By: #### T SGL #### [address] [place] [address] [facility] #### LRC #### [address] [place] [address] Hemoglobin (Bld) [Mass/Vol] 7.4 g/dL Low 11.7-16.0 [facility] Comment on above: Performed By: #### T SGL #### [address] [place], [place] [id number] [place] [address] #### LRC #### [address] [place] [address] Lymphocytes (Bld) [#/Vol] 1.6 10*3/uL Normal 1.0-4.3 [facility] Comment on above: Performed By: #### T SGL #### [address] [place], [place] [id number] [place] [address] #### LRC #### [address] [place] [address] Lymphocytes/100 WBC (Bld) 11.3 % Low 20.0-40.0 [facility] Comment on above: Performed By: #### T SGL #### [address] [place], [place] [id number] [place] [address] #### LRC #### [address] [place] [address] MCH (RBC) [Entitic mass] 25.8 pg Low 26.0-34.0 [facility] Comment on above: Performed By: #### T SGL #### [address] [place], [place] [id number] [place] [address] #### LRC #### [address] [place] [address] MCHC (RBC) [Mass/Vol] 31.8 % Low 32.0-36.0 [facility] Comment on above: Performed By: #### T SGL #### [address] [place], [place] [id number] [place] [address] #### LRC #### [address] [place] [address] MCV (RBC) [Entitic vol] 81.1 fL Normal 79.0-98.0 [facility] Comment on above: Performed By: #### T SGL #### [facility] [address] [place] [facility] [place] [address] [facility] #### LRC #### [facility] [address] [place] [address] Monocytes (Bld) [#/Vol] 1.0 10*3/uL High 0.0-0.8 [facility] Comment on above: Performed By: #### T SGL #### [address] [place] [address] [facility] #### LRC #### [address] [place] [address] Monocytes/100 WBC (Bld) 7.3 % Normal 2.0-10.0 [facility] Comment on above: Performed By: #### T SGL #### [address] [place] [address] [facility] #### LRC #### [address] [place] [address] Platelet mean volume (Bld) [Entitic vol] 7.0 fL Low 7.4-10.4 [facility] Comment on above: Performed By: #### T SGL #### [address] [place] [facility] [place] [address] [facility] #### LRC #### [address] [place] [address] Platelets (Bld) [#/Vol] 405 10*3/uL Normal 140-440 [facility] Comment on above: Performed By: #### T SGL #### [address] [place] [address] [facility] #### LRC #### [address] [place] [address] RBC (Bld) [#/Vol] 2.87 10*6/uL Low 3.80-5.20 [facility] Comment on above: Performed By: #### T SGL #### [address] [place] [address] [facility] #### L[facility] #### [address] [place] [address] WBC (Bld) [#/Vol] 13.9 10*3/uL High 3.6-10.7 [facility] Comment on above: Performed By: #### T SGL #### [facility] [address] [place] [address] [facility] #### LRC #### [address] [place] [address] LDHon 10-04-2019 LDH 317 U/L High 120-246 [facility] Comment on above: Performed By: #### T SGL #### [address] [place] [address] [facility] #### L[facility] #### [address] [place] [address] LEGIONELLA AG, URINEon 10-03 LEGIONELLA AG, URINE LEGIONELLA AG, URIN E --> Status: F Legionella antigen NOT DETECTED. Normal [facility] Comment on above: Order Comment: Speci men Source Comment:Urine, clean catch Performed By: #### T SGL #### [address] [place] [address] [facility] #### LRC #### [address] [place] [address] Lactate Dehydrogenaseon 09-21 Interpretation and review of laboratory results Abnormal [place], [place] LD 317 U/L High 120 - 246 U/L [place] Test Performed by [address] [place] [address] [place], [place] Magnesiumon 10-04-2019 Magnesium [Mass/Vol] 2.0 mg/dL Normal 1.6-2.3 [facility] Comment on above: Performed By: #### T SGL #### [address] [place] [address] [facility] #### LRC #### [address] [place] [address] Magnesium [Mass/Vol] 2.0 mg/dL 1.6 - 2 .3 mg/dL [place], [place] Otheron 10-04-2019 Test Performed by [facility], [address] [place] [id number] [facility], [place] Phosphoruson 10-04-2019 Phosphate [Mass/Vol] 3.0 mg/dL Normal 2.5-4.5 [facility] Comment on above: Performed By: #### T SGL #### [address] [place] [address] [facility] #### LRC #### [address] [place] [address] Phosphate [Mass/Vol] 3.0 mg/dL 2.5 - 4 .5 mg/dL [facility], [place] Procalcitoninon 10-04-2019 Interpretation See Below Normal [facility] Comment on above: Result Comment: PCT <0.50 = Low risk of severe sepsis and/or septic shock. PCT >2.00 = High risk of severe sepsis and/or septic shock. Performed By: #### P T, LIPA4, LFT3, PCAL #### [address] [place] [address] Prothrombin Timeon 0 INR Coag (PPP) [Relative time] 1.2 High 0.9-1.1 [facility] Comment on above: Result Comment: Mark mmended Anticoagulant Therapy: SEE BELOW ----- INR of 2.0 - 3.0 : - Prophylaxis of Venous Thrombosis (high-risk surgery) - Treatment of Venous Thrombosis - Treatment of Pulmonary Embolism (Includes tissue heart valves, Acute Myocardial Infarction to prevent systemic embolism, Valvular Heart Disease, and Atrial Fibrillation) ----- INR of 2.5 - 3.5 : - Mechanical Prosthetic Valves (high risk) - If oral anticoagulant therapy is used to prevent Myocardial Infarction Performed By: #### T SGL #### [address] [place] [address] [facility] #### LRC #### [address] [place] [address] PT Coag (PPP) [Time] 13.4 s High 9.0-12.0 [facility] Comment on above: Result Comment: . Performed By: #### T SGL #### [facility] [address] #### LRC #### [place] [address] Protime-INRon 10-04-2019 INR Coag (PPP) [Relative time] 1.2 {INR} High [place], [place] Comment on above: Recommended Anticoag ulant Therapy: SEE BELOW ----- INR of 2.0 - 3.0 : - Prophylaxis of Venous Thrombosis (high-risk surgery) - Treatment of Venous Thrombosis - Treatment of Pulmonary Embolism (Includes tissue heart valves, Acute Myocardial Infarction to prevent systemic embolism, Valvular Heart Disease, and Atrial Fibrillation) ----- INR of 2.5 - 3.5 : - Mechanical Prosthetic Valves (high risk) - If oral anticoagulant therapy is used to prevent Myocardial Infarction Interpretation and review of laboratory results Abnormal [place], [place] PT Coag (PPP) [Time] 13.4 s High 9 - 12 s [place], [place] Comment on above: . Test Performed by [address] STREP PNEUMO ANTIGEN, URINEo n 10-04-2019 STREP PNEUMO ANTIGEN, URINE STREP PNEUMO ANTIGEN, URINE --> Status: F Strep pneumo antigen NOT DETECTED. Normal [facility] Comment on above: Order Comment: Speci men Source Comment:Urine, clean catch Performed By: #### T SGL #### [address] #### [place]RC #### [place] [address] US ABDOMEN LIMITED Specify o rgan? GALLBLADDER, LIVERon 10-04-2019 Patient Name: DORY BASURTO ---Ultrasound--- Exam Date/Time 10/03/2019 22:42:00 EDT Exam US Abdomen Limited Ordering Physician CORY MEI Accession Number [id number] CPT4 Codes 45016 () Reason For Exam distended gallbladder on CT abdomen and pelvis Report US ABDOMEN LIMITED CLINICAL INDICATION: Distended gallbladder. GI bleed. TECHNIQUE: Right upper quadrant ultrasound of abdomen COMPARISON: 10/03/2019. FINDINGS: Liver: Liver measures 19.5 cm, slightly enlarged. Diffuse increased echotexture without focal mass. Gallbladder: Distended gallbladder measuring 11.1 x 5.9 x 4.4 cm. Minimal gallbladder sludge. No gallbladder calculi. Borderline wall thickening with minimal pericholecystic fluid. Negative Lieberman's sign is reported. Bile ducts: Intrahepatic and extrahepatic bile ducts are not dilated Common bile duct: 0.5 cm, within normal limits. Pancreas: Suboptimal visualization of pancreas due to overlying bowel gas. 0.5 cm mid pancreatic cystic structure is identified. No pancreatic ductal dilatation. Kidneys: Normal echogenicity without pelvicalyceal dilatation or mass Right kidney measures: 11.6 x 5.7 x 4.9 cm. Small right pleural effusion. IMPRESSION: Distended gallbladder with sludge and mild gallbladder wall thickening with pericholecystic fluid which may be secondary to fasting state and liver disease. Negative Lieberman sign is reported. Acute cholecystitis is less likely. HIDA scan may be a helpful physiologic test. Enlarged fatty liver. No ascites. Small right pleural effusion Report Dictated on --- Final --- Dictated: 10/04/2019 5:06 am Dictating Physician: PARKER PATEL DO, I Signed Date and Time: 10/04/2019 5:12 am Signed by: PARKER PATEL DO, I Transcribed Date and Time: 10/04/2019 5:06 [place], [place] [facility] Results From [facility] - 10/04/2019 5:13 AM EDT Patient Name: DORY BASURTO ---Ultrasound--- Exam Date/Time 10/03/2019 22:42:00 EDT Exam US Abdomen Limited Ordering Physician CORY MEI Accession Number [id number] CPT4 Codes 87761 () Reason For Exam distended gallbladder on CT abdomen and pelvis Report US ABDOMEN LIMITED CLINICAL INDICATION: Distended gallbladder. GI bleed. TECHNIQUE: Right upper quadrant ultrasound of abdomen COMPARISON: 10/03/2019. FINDINGS: Liver: Liver measures 19.5 cm, slightly enlarged. Diffuse increased echotexture without focal mass. Gallbladder: Distended gallbladder measuring 11.1 x 5.9 x 4.4 cm. Minimal gallbladder sludge. No gallbladder calculi. Borderline wall thickening with minimal pericholecystic fluid. Negative Lieberman's sign is reported. Bile ducts: Intrahepatic and extrahepatic bile ducts are not dilated Common bile duct: 0.5 cm, within normal limits. Pancreas: Suboptimal visualization of pancreas due to overlying bowel gas. 0.5 cm mid pancreatic cystic structure is identified. No pancreatic ductal dilatation. Kidneys: Normal echogenicity without pelvicalyceal dilatation or mass Right kidney measures: 11.6 x 5.7 x 4.9 cm. Small right pleural effusion. IMPRESSION: Distended gallbladder with sludge and mild gallbladder wall thickening with pericholecystic fluid which may be secondary to fasting state and liver disease. Negative Lieberman sign is reported. Acute cholecystitis is less likely. HIDA scan may be a helpful physiologic test. Enlarged fatty liver. No ascites. Small right pleural effusion Report Dictated on --- Final --- Dictated: 10/04/2019 5:06 am Dictating Physician: PARKER PATEL DO, I Signed Date and Time: 10/04/2019 5:12 am Signed by: PARKER PATEL DO, I Transcribed Date and Time: 10/04/2019 5:06 [place] US Abdomen Limitedon 020 US Abdomen Limited Patient Name: DORY BASURTO Ultrasound Exam Date/Time 10/03/2019 22:42:00 EDT Exam US Abdomen Limited Ordering Physician CORY MEI Accession Number [id number] CPT4 Codes 76873 () Reason For Exam distended gallbladder on CT abdomen and pelvis Report US ABDOMEN LIMITED CLINICAL INDICATION: Distended gallbladder. GI bleed. TECHNIQUE: Right upper quadrant ultrasound of abdomen COMPARISON: 10/03/2019. FINDINGS: Liver: Liver measures 19.5 cm, slightly enlarged. Diffuse increased echotexture without focal mass. Gallbladder: Distended gallbladder measuring 11.1 x 5.9 x 4.4 cm. Minimal gallbladder sludge. No gallbladder calculi. Borderline wall thickening with minimal pericholecystic fluid. Negative Lieberman's sign is reported. Bile ducts: Intrahepatic and extrahepatic bile ducts are not dilated Common bile duct: 0.5 cm, within normal limits. Pancreas: Suboptimal visualization of pancreas due to overlying bowel gas. 0.5 cm mid pancreatic cystic structure is identified. No pancreatic ductal dilatation. Kidneys: Normal echogenicity without pelvicalyceal dilatation or mass Right kidney measures: 11.6 x 5.7 x 4.9 cm. Small right pleural effusion. IMPRESSION: Distended gallbladder with sludge and mild gallbladder wall thickening with pericholecystic fluid which may be secondary to fasting state and liver disease. Negative Lieberman sign is reported. Acute cholecystitis is less likely. HIDA scan may be a helpful physiologic test. Enlarged fatty liver. No ascites. Small right pleural effusion Report Dictated on Final Dictated: 10/04/2019 5:06 am Dictating Physician: PARKER PATEL DO, I Signed Date and Time: 10/04/2019 5:12 am Signed by: PARKER PATEL DO, I Transcribed Date and Time: 10/04/2019 5:06 Normal [facility] XR ABDOMEN (KUB) (SINGLE AP VIEW)on 10-04-2019 Ezio, [facility] Incoming Radiology Results From [facility] - 10/04/2019 2:11 PM EDT Patient Name: DORY BASURTO ---Diagnostic Radiology--- Exam Date/Time 10/04/2019 14:11:35 EDT Exam CR Abdomen AP Ordering Physician EDENILSON BURNS MD, CHARLES V Accession Number [id number] CPT4 Codes 41701 () Reason For Exam check placement of NG tube Report KUB History: Tube placement COMPARISON: 10/04/2019, 11:14 AM IMPRESSION: AP supine view of the upper abdomen shows kinked distal enteric tube with its tip overlying the gastric fundus. There is moderate amount of gas and stools in mildly dilated small and large bowel loops that could reflect ileus, not significantly changed from the prior exam. Routine evaluation of any possible free air requires concurrent upright or decubitus views that are not available. Continued evaluation suggested. Report Dictated on --- Final --- Dictated: 10/04/2019 2:01 pm Dictating Physician: MD SCHILLING AHMAD Signed Date and Time: 10/04/2019 2:04 pm Signed by: MD SCHILLING AHMAD Transcribed Date and Time: 10/04/2019 2:01 [place] Patient Name: DORY BASURTO ---Diagnostic Radiology--- Exam Date/Time 10/04/2019 14:11:35 EDT Exam CR Abdomen AP Ordering Physician EDENILSON BURNS MD, CHARLES V Accession Number [id number] CPT4 Codes 36643 () Reason For Exam check placement of NG tube Report KUB History: Tube placement COMPARISON: 10/04/2019, 11:14 AM IMPRESSION: AP supine view of the upper abdomen shows kinked distal enteric tube with its tip overlying the gastric fundus. There is moderate amount of gas and stools in mildly dilated small and large bowel loops that could reflect ileus, not significantly changed from the prior exam. Routine evaluation of any possible free air requires concurrent upright or decubitus views that are not available. Continued evaluation suggested. Report Dictated on --- Final --- Dictated: 10/04/2019 2:01 pm Dictating Physician: MD SCHILLING AHMAD Signed Date and Time: 10/04/2019 2:04 pm Signed by: MD SCHILLING AHMAD Transcribed Date and Time: 10/04/2019 2:01 [place] Patient Name: DORY BASURTO ---Diagnostic Radiology--- Exam Date/Time 10/04/2019 11:36:12 EDT Exam CR Abdomen AP Ordering Physician CORY MEI Accession Number [id number] CPT4 Codes 90201 () Reason For Exam re-evaluate ileus Report KUB CLINICAL INDICATION: Evaluate ileus COMPARISON: 10/03/2019 Supine images of the abdomen were obtained. There is diffuse small bowel and colonic gas with mild distention, increased compared to the prior exam. Bladder is partially distended with contrast opacified urine from CT exam done yesterday. No definite filling defects are noted. There are no acute interval changes in the osseous structures. IMPRESSION: Diffuse ileus which appears slightly greater than the prior exam Report Dictated on Workstation: [id number] --- Final --- Dictated: 10/04/2019 12:11 pm Dictating Physician: MD CHANDLER DIANE Signed Date and Time: 10/04/2019 12:15 pm Signed by: MD CHANDLER DIANE Transcribed Date and Time: 10/04/2019 12:11 [place] [facility] From [facility] - 10/04/2019 12:16 PM EDT Patient Name: DORY BASURTO ---Diagnostic Radiology--- Exam Date/Time 10/04/2019 11:36:12 EDT Exam CR Abdomen AP Ordering Physician CORY MEI Accession Number [id number] CPT4 Codes 54277 () Reason For Exam re-evaluate ileus Report KUB CLINICAL INDICATION: Evaluate ileus COMPARISON: 10/03/2019 Supine images of the abdomen were obtained. There is diffuse small bowel and colonic gas with mild distention, increased compared to the prior exam. Bladder is partially distended with contrast opacified urine from CT exam done yesterday. No definite filling defects are noted. There are no acute interval changes in the osseous structures. IMPRESSION: Diffuse ileus which appears slightly greater than the prior exam Report Dictated on Workstation: [id number] --- Final --- Dictated: 10/04/2019 12:11 pm Dictating Physician: MD CHANDLER DIANE Signed Date and Time: 10/04/2019 12:15 pm Signed by: MD CHANDLER DIANE Transcribed Date and Time: 10/04/2019 12:11 [place] XR CHEST PORTABLEon 10-04-19 [facility] Results From [facility] - 10/04/2019 7:43 AM EDT Patient Name: DORY BASURTO ---Diagnostic Radiology--- Exam Date/Time 10/04/2019 06:35:18 EDT Exam CR Chest Portable Ordering Physician CORY MEI Accession Number [id number] CPT4 Codes 22412 () Reason For Exam SOB Report CHEST CLINICAL INDICATION: Shortness of breath TECHNIQUE: AP COMPARISON: Abdominal radiograph 10/03/2019 FINDINGS: The cardiac silhouette is mildly enlarged. There is no evidence of a pneumothorax or pleural effusion. Prominent interstitial markings are noted bilaterally. An NG tube is noted overlying the mid esophagus. Degenerative changes are noted throughout the thoracic spine.. IMPRESSION: 1. Prominent interstitial markings which may represent pulmonary vascular congestion versus infectious etiology. Correlate clinically. 2. Interval retraction of the NG tube seen overlying the mid esophagus. These findings were discussed with RN: Abelino at 7:41am on 10/04/2019 Report Dictated on --- Final --- Dictated: 10/04/2019 7:35 am Dictating Physician: DO ROGERS RACHEL Signed Date and Time: 10/04/2019 7:42 am Signed by: DO ROGERS RACHEL Transcribed Date and Time: 10/04/2019 7:35 [place] Patient Name: DORY BASURTO ---Diagnostic Radiology--- Exam Date/Time 10/04/2019 06:35:18 EDT Exam CR Chest Portable Ordering Physician [id number] BUSTOS Accession Number [id number] CPT4 Codes 82932 () Reason For Exam SOB Report CHEST CLINICAL INDICATION: Shortness of breath TECHNIQUE: AP COMPARISON: Abdominal radiograph 10/03/2019 FINDINGS: The cardiac silhouette is mildly enlarged. There is no evidence of a pneumothorax or pleural effusion. Prominent interstitial markings are noted bilaterally. An NG tube is noted overlying the mid esophagus. Degenerative changes are noted throughout the thoracic spine.. IMPRESSION: 1. Prominent interstitial markings which may represent pulmonary vascular congestion versus infectious etiology. Correlate clinically. 2. Interval retraction of the NG tube seen overlying the mid esophagus. These findings were discussed with PANCHITO Roca at 7:41am on 10/04/2019 Report Dictated on --- Final --- Dictated: 10/04/2019 7:35 am Dictating Physician: DO ROGERS RACHEL Signed Date and Time: 10/04/2019 7:42 am Signed by: DO ROGERS RACHEL Transcribed Date and Time: 10/04/2019 7:35 [facility] [place], [place] Add On Lab Teston 10-03-2019 Sodium [Moles/Vol] Accepted [place], [place] Comment on above: Specimen available & acceptable for analysis. Test Performed by [facility], [facility] [place] [address] [facility], [place] Sodium [Moles/Vol] Accepted [facility] Comment on above: Specimen available & acceptable for analysis. Test Performed by [facility], [facility] [place] [address] [facility], [place] Add on test from HISon 10-02 Add on test from [facility] Accepted Normal [facility] Comment on above: Result Comment: Spec imen available & acceptable for analysis. Performed By: #### H NGUYEN MG3, BMP3 #### [address] [place], [place] Add on test from HIS Accepted Normal [facility] Comment on above: Result Comment: Spec imen available & acceptable for analysis. Performed By: #### H NGUYEN MG3, BMP3 #### [address] [place], [place] Basic Metabolic Panelon 09-21 Calcium [Mass/Vol] 6.7 mg/dL Low 8.4-10.4 [facility] Comment on above: Performed By: #### H NGUYEN MG3, BMP3 #### [address] [address] [place], [place] Glucose [Mass/Vol] 100 mg/dL Normal 70-100 [facility] Comment on above: Performed By: #### H NGUYEN MG3, BMP3 #### [place] [address] [place], [place] Anion gap [Moles/Vol] 6 Normal [facility] Comment on above: Performed By: #### H EMOPerla MG3, BMP3 #### [place] [address] [place], [place] CO2 [Moles/Vol] 18 mmol/L Low 22-30 [facility] Comment on above: Performed By: #### H EMOPerla MG3, BMP3 #### [facility] [address] Creatinine [Mass/Vol] 1.22 mg/dL Normal 0.52-1.25 [facility] Comment on above: Performed By: #### H NGUYEN MG3, BMP3 #### [address] GFR/1.73 sq M predicted among blacks MDRD (S/P/Bld) [Vol rate/Area] 53.8 mL/min/{1.73_m2} Abnormal >60 [facility] Comment on above: Performed By: #### H NGUYEN MG3, BMP3 #### [address] GFR/1.73 sq M predicted among non-blacks MDRD (S/P/Bld) [Vol rate/Area] 46.5 mL/min/{1.73_m2} Abnormal >60 [facility] Comment on above: Result Comment: KDIG O guidelines provide the following GFR categories: Stage GFR(ml/min/1.73 m2) Terms G1 >=90 Normal or high G2 60-89 Mildly decreased* G3a 45-59 Mildly to moderately decreased G3b 30-44 Moderately to severely decreased G4 15-29 Severely decreased G5 <15 Kidney failure *Relative to young adult level. In the absence of evidence of kidney damage, neither GFR category G1 nor G2 fulfill the criteria for CKD. The CKD-EPI equation is validated in individuals 18 years of age and older. Currently the best equation for estimating glomerular filtration rate (GFR) from serum creatinine in children is the Bedside Oshea equation. It is less accurate in patients with extremes of muscle mass, restriction of dietary protein, ingestion of creatine, extra-renal metabolism of creatinine, or treatment with medications that affect renal tubular creatinine secretion. Performed By: #### H NGUYEN MG3, BMP3 #### [address] Urea nitrogen [Mass/Vol] 14 mg/dL Normal 7-20 [facility] Comment on above: Performed By: #### H NGUYEN MG3, BMP3 #### [address] Chloride [Moles/Vol] 107 mmol/L Normal 98-107 [facility] Comment on above: Performed By: #### H EMOG, MG3, BMP3 #### [facility] [address] [place], [place] Potassium [Moles/Vol] 3.5 mmol/L Normal 3.5-5.1 [facility] Comment on above: Result Comment: Slig htly hemolysed, interpret with caution. Performed By: #### H EMOG, MG3, BMP3 #### [facility] [address] [place], [place] Sodium [Moles/Vol] 131 mmol/L Low 135-145 [facility] Comment on above: Performed By: #### H EMOG, MG3, BMP3 #### [facility] [address] [place], [place] Anion gap [Moles/Vol] 6 mmol/L [place], [place] Calcium [Mass/Vol] 6.7 mg/dL Low 8.4 - 10. 4 mg/dL [place], [place] Chloride [Moles/Vol] 107 mmol/L 98 - 10 7 mmol/L [place], [place] CO2 [Moles/Vol] 18 mmol/L Low 22 - 30 mmol/L [place] Creatinine [Mass/Vol] 1.22 mg/dL 0.52 - 1.25 mg/dL [place], [place] EGFR IF NonAfrican [place]an 46.5 mL/min Abnormal >60 [place] Comment on above: KDIGO guidelines pro vide the following GFR categories: Stage GFR(ml/min/1.73 m2) Terms G1 >=90 Normal or high G2 60-89 Mildly decreased* G3a 45-59 Mildly to moderately decreased G3b 30-44 Moderately to severely decreased G4 15-29 Severely decreased G5 <15 Kidney failure *Relative to young adult level. In the absence of evidence of kidney damage, neither GFR category G1 nor G2 fulfill the criteria for CKD. The CKD-EPI equation is validated in individuals 18 years of age and older. Currently the best equation for estimating glomerular filtration rate (GFR) from serum creatinine in children is the Bedside Oshea equation. It is less accurate in patients with extremes of muscle mass, restriction of dietary protein, ingestion of creatine, extra-renal metabolism of creatinine, or treatment with medications that affect renal tubular creatinine secretion. GFR/1.73 sq M predicted among blacks MDRD (S/P/Bld) [Vol rate/Area] 53.8 mL/min/{1.73_m2} Abnormal >60 [place], [place] Glucose [Mass/Vol] 100 mg/dL 70 - 100 mg/dL [place] Interpretation and review of laboratory results Abnormal [place] Potassium [Moles/Vol] 3.5 mmol/L 3.5 - 5.1 mmol/L [place] Comment on above: Slightly hemolysed, interpret with caution. Sodium [Moles/Vol] 131 mmol/L Low 135 - 145 mmol/L [place], [place] Urea nitrogen [Mass/Vol] 14 mg/dL 7 - 20 mg/dL [place] Test Performed by [facility], [address] [place] [address] [place], [place] Calcium [Mass/Vol] 6.8 mg/dL Low 8.4-10.4 [facility] Comment on above: Performed By: #### H EMOG, MG3, BMP3 #### [address] Anion gap [Moles/Vol] 11 Normal [facility] Comment on above: Performed By: #### H EMOG, MG3, BMP3 #### [address] CO2 [Moles/Vol] 16 mmol/L Low 22-30 [facility] Comment on above: Performed By: #### H EMOG, MG3, BMP3 #### [address] Creatinine [Mass/Vol] 1.41 mg/dL High 0.52-1.25 [facility] Comment on above: Performed By: #### H EMOG, MG3, BMP3 #### [address] GFR/1.73 sq M predicted among blacks MDRD (S/P/Bld) [Vol rate/Area] 45.2 mL/min/{1.73_m2} Abnormal >60 [facility] Comment on above: Performed By: #### H CANDELARIA CEDILLO BMP3 #### [facility] [address] [place] [address] GFR/1.73 sq M predicted among non-blacks MDRD (S/P/Bld) [Vol rate/Area] 39.0 mL/min/{1.73_m2} Abnormal >60 [facility] Comment on above: Result Comment: KDIG O guidelines provide the following GFR categories: Stage GFR(ml/min/1.73 m2) Terms G1 >=90 Normal or high G2 60-89 Mildly decreased* G3a 45-59 Mildly to moderately decreased G3b 30-44 Moderately to severely decreased G4 15-29 Severely decreased G5 <15 Kidney failure *Relative to young adult level. In the absence of evidence of kidney damage, neither GFR category G1 nor G2 fulfill the criteria for CKD. The CKD-EPI equation is validated in individuals 18 years of age and older. Currently the best equation for estimating glomerular filtration rate (GFR) from serum creatinine in children is the Bedside Oshea equation. It is less accurate in patients with extremes of muscle mass, restriction of dietary protein, ingestion of creatine, extra-renal metabolism of creatinine, or treatment with medications that affect renal tubular creatinine secretion. Performed By: #### H MG NGUYEN3, BMP3 #### [facility] [address] [place] [address] Glucose [Mass/Vol] 134 mg/dL High 70-100 [facility] Comment on above: Performed By: #### H NGUYEN MG3, BMP3 #### [facility] [address] [place] [address] Urea nitrogen [Mass/Vol] 15 mg/dL Normal 7-20 [facility] Comment on above: Performed By: #### H NGUYEN MG3, BMP3 #### [address] [address] Chloride [Moles/Vol] 105 mmol/L Normal 98-107 [facility] Comment on above: Performed By: #### H EMOG, MG3, BMP3 #### [facility] [address] [place] [address] Potassium [Moles/Vol] 3.0 mmol/L Low 3.5-5.1 [facility] Comment on above: Performed By: #### H EMOG, MG3, BMP3 #### [facility] [address] [place] [address] Sodium [Moles/Vol] 132 mmol/L Low 135-145 [facility] Comment on above: Performed By: #### H EMOG, MG3, BMP3 #### [facility] [address] [place], [place] Anion gap [Moles/Vol] 11 mmol/L [place], [place] Calcium [Mass/Vol] 6.8 mg/dL Low 8.4 - 10. 4 mg/dL [place] Chloride [Moles/Vol] 105 mmol/L 98 - 10 7 mmol/L [place] CO2 [Moles/Vol] 16 mmol/L Low 22 - 30 mmol/L [place] Creatinine [Mass/Vol] 1.41 mg/dL High 0.52 - 1.25 mg/dL [place] EGFR IF NonAfrican [place]an 39.0 mL/min Abnormal >60 [place] Comment on above: KDIGO guidelines pro vide the following GFR categories: Stage GFR(ml/min/1.73 m2) Terms G1 >=90 Normal or high G2 60-89 Mildly decreased* G3a 45-59 Mildly to moderately decreased G3b 30-44 Moderately to severely decreased G4 15-29 Severely decreased G5 <15 Kidney failure *Relative to young adult level. In the absence of evidence of kidney damage, neither GFR category G1 nor G2 fulfill the criteria for CKD. The CKD-EPI equation is validated in individuals 18 years of age and older. Currently the best equation for estimating glomerular filtration rate (GFR) from serum creatinine in children is the Bedside Oshea equation. It is less accurate in patients with extremes of muscle mass, restriction of dietary protein, ingestion of creatine, extra-renal metabolism of creatinine, or treatment with medications that affect renal tubular creatinine secretion. GFR/1.73 sq M predicted among blacks MDRD (S/P/Bld) [Vol rate/Area] 45.2 mL/min/{1.73_m2} Abnormal >60 [place] Glucose [Mass/Vol] 134 mg/dL High 70 - 100 mg/dL [place] Interpretation and review of laboratory results Abnormal [place] Potassium [Moles/Vol] 3.0 mmol/L Low 3.5 - 5.1 mmol/L [place] Sodium [Moles/Vol] 132 mmol/L Low 135 - 145 mmol/L [place] Urea nitrogen [Mass/Vol] 15 mg/dL 7 - 20 mg/dL [place] Beta Hydroxybutyrateon 10-02 Beta Hydroxybutyrate 0.96 mg/dL Normal 0.20-2.81 [facility] Comment on above: Performed By: #### H NGUYEN, MG3, BMP3 #### [address] [address] Beta-Hydroxybutyrateon 10-02 Beta-Hydroxybutyrate 0.96 mg/dL 0.2 - 2 .81 mg/dL [place] Test Performed by [address] [address] [place], [place] CBCon 10-03-2019 Erythrocyte distribution width (RBC) [Ratio] 18.5 % High 11.5 - 14.5 % [place] Hematocrit (Bld) [Volume fraction] 20.2 % Low 35 - 47 % [place] Hemoglobin (Bld) [Mass/Vol] 6.1 g/dL Critically low 11.7 - 16 g/dL [place] Comment on above: REPEATED Interpretation and review of laboratory results Abnormal [place] MCH (RBC) [Entitic mass] 23.9 pg Low 26 - 34 pg [place] MCHC (RBC) [Mass/Vol] 30.0 % Low 32 - 36 % [place], [place] MCV (RBC) [Entitic vol] 79.5 fL 79 - 98 fL [place], [place] Platelet mean volume (Bld) [Entitic vol] 6.9 fL Low 7.4 - 10.4 fL [place] Platelets (Bld) [#/Vol] 545 10*3/uL High 140 - 440 10*3/uL [place] RBC (Bld) [#/Vol] 2.54 10*6/uL Low 3.8 - 5.2 10*6/uL [place] WBC (Bld) [#/Vol] 25.4 10*3/uL High 3.6 - 10.7 10*3/uL [place] Test Performed by [facility], [address] [place] [address] [place] CR Abdomen APon 10-03-2019 CR Abdomen AP Patient Name: DORY BASURTO Diagnostic Radiology Exam Date/Time 10/03/2019 16:47:00 EDT Exam CR Abdomen AP Ordering Physician [id number] BIPIN COBOS Accession Number [id number] CPT4 Codes 72654 () Reason For Exam NG tube placement Report EXAMINATION: Abdomen: AP view. COMPARISON: 10/03/2019. REASON FOR STUDY: A G-tube placement. FINDINGS: Lower abdomen is not included in the radiograph. Distended small bowel loops are observed in the upper abdomen. No appreciable evidence of free intraperitoneal air. Osseous structures appear intact. Interstitial markings are prominent in the lower lungs. Heart is enlarged. Nasogastric tube projects over the gastric air bubble. CONCLUSIONS: 1. Small bowel ileus. 2. Nasogastric tube in the vicinity of the stomach. 3. Pulmonary interstitial edema. Report Dictated on Final Dictated: 10/03/2019 5:20 pm Dictating Physician: MD BOSTON B NELSON Signed Date and Time: 10/03/2019 5:23 pm Signed by: MD BOSTON B NELSON Transcribed Date and Time: 10/03/2019 5:20 Normal [facility] CR Abdomen AP Patient Name: DORY BASURTO Diagnostic Radiology Exam Date/Time 10/03/2019 15:32:30 EDT Exam CR Abdomen AP Ordering Physician EDENILSON BURNS MD, EDOUARD Davis Accession Number [id number] CPT4 Codes 10261 () Reason For Exam NG placemnt Report EXAM TYPE: CR Abdomen AP EXAM DATE AND TIME: 10/03/2019 3:32 PM EDT INDICATION: 63 years Female with enteric tube placement COMPARISON: CT from earlier today TECHNIQUE: AP supine radiograph of the abdomen and pelvis was obtained. FINDINGS: An enteric tube terminates overlying the lower thoracic esophagus. Advancement recommended. No dilated small bowel loops are seen, the evaluation is limited as the lower abdomen is not included in the [id number].. Limited evaluation for free air or air-fluid levels on supine-only imaging. No abnormal soft tissue calcifications are seen. The visualized osseous structures are unremarkable. There are coarse interstitial markings likely related to chronic pulmonary disease. IMPRESSION: Enteric tube terminating overlying the distal thoracic esophagus; recommend repositioning. Report Dictated on Final Dictated: 10/03/2019 4:01 pm Dictating Physician: MD SHAY NICHOLAS Signed Date and Time: 10/03/2019 4:03 pm Signed by: MD SHAY NICHOLAS Transcribed Date and Time: 10/03/2019 4:[address] [facility] CT Abdomen Pelvis W Contrast on 10-03-2019 Patient Name: DORY BASURTO ---CT--- Exam Date/Time 10/03/2019 10:41:[address] Abdomen/Pelvis w/ IV Contrast (IV Onl Ordering Physician MD PARADISE, KRISTI Accession Number [id number] CPT4 Codes 40821 (CT Abdomen/Pelvis w/ IV Contrast (IV Onl), Q9967 (CT ISOVUE 370MG/[id number] L&1) Reason For Exam GIB, concern for perforation Report CT ABDOMEN AND PELVIS WITH CONTRAST EXAM DATE AND TIME: 10/03/2019 10:41 AM EDT INDICATION: 63 years Female with a layering, possible perforation COMPARISON: None TECHNIQUE: Transaxial sequence through the abdomen and pelvis with 3 mm reconstruction with dynamic intravenous infusion of 75 mL of 370 mg% contrast media. Coronal and sagittal reconstructions included. Dose reduction was employed with automated exposure control. FINDINGS: Chest base: Small bilateral pleural effusions and bibasilar atelectasis. Liver: Generalized diminished attenuation as compared to the spleen, corresponding to diffuse fatty infiltration. No focal lesion. Biliary tree: Normal caliber. The gallbladder is mildly distended. Hyperdense material is present in the gallbladder which could represent excreted iodinated contrast or biliary sludge versus stones Spleen: Normal. Adrenals: Normal. Pancreas: Normal. Kidneys: There are wedge-shaped areas of decreased cortical enhancement involving both kidneys, most notable in the inferior pole of the left kidney (series 6 image 50). Arthrosis. No focal lesion. Free fluid: None. Retroperitoneal/mesent tristan lymphadenopathy: Prominent mesenteric nodes which are subcentimeter in short axis diameter. Bowel: There is mild fat stranding around the greater curvature of the stomach. There are mildly dilated small bowel loops in the lower abdomen. No definite transition point. The colon is normal in caliber. There is a small amount of fat stranding adjacent to the splenic flexure of the colon. No mural thickening. No pneumatosis intestinalis or pneumatosis coli. The appendix is not seen, however there are no pericecal inflammatory changes. No pneumoperitoneum. Aorta: Atherosclerotic calcifications are seen in the aorta and its branches. The aorta is normal in caliber. Abdominal wall: Diffuse anasarca.. Pelvic organs/viscera: Somewhat limited due to streak artifact from metallic density foci in the patient's hand and then sided noted contrast within the urinary bladder. No obvious mass. Pelvic lymphadenopathy: None. Osseous structures: No abnormality. IMPRESSION: 1. No pneumoperitoneum to suggest hollow viscus perforation. Mild fat stranding at the splenic flexure, which may represent mild colitis. Mild perigastric fat stranding; correlate for possible gastritis. 2. Mildly dilated small bowel. Findings could be related to ileus or obstruction. No transition point is seen. 3. Wedge-shaped area of hypoenhancement in both kidneys, which may be related to polyp right is four bilateral renal infarcts. 4. Small bilateral pleural effusions. Bibasilar atelectasis. 5. Mildly distended gallbladder, which could be due to fasting but if there is concern for cholecystitis, ultrasound would be recommended. 6. Hepatic steatosis. Report Dictated on --- Final --- Dictated: 10/03/2019 11:39 am Dictating Physician: MD SHAY NICHOLAS Signed Date and Time: 10/03/2019 11:50 am Signed by: MD SHAY NICHOLAS Transcribed Date and Time: 10/03/2019 11:[address] [facility] [place], [place], [facility] Incoming Radiology Results From [facility] - 10/03/2019 11:51 AM EDT Patient Name: DORY BASURTO ---CT--- Exam Date/Time 10/03/2019 10:41:[address] Abdomen/Pelvis w/ IV Contrast (IV Onl Ordering Physician MD PARADISE, KRISTI Accession Number [id number] CPT4 Codes 72455 (CT Abdomen/Pelvis w/ IV Contrast (IV Onl), Q9967 (CT ISOVUE 370MG/[id number]&M L&1) Reason For Exam GIB, concern for perforation Report CT ABDOMEN AND PELVIS WITH CONTRAST EXAM DATE AND TIME: 10/03/2019 10:41 AM EDT INDICATION: 63 years Female with a layering, possible perforation COMPARISON: None TECHNIQUE: Transaxial sequence through the abdomen and pelvis with 3 mm reconstruction with dynamic intravenous infusion of 75 mL of 370 mg% contrast media. Coronal and sagittal reconstructions included. Dose reduction was employed with automated exposure control. FINDINGS: Chest base: Small bilateral pleural effusions and bibasilar atelectasis. Liver: Generalized diminished attenuation as compared to the spleen, corresponding to diffuse fatty infiltration. No focal lesion. Biliary tree: Normal caliber. The gallbladder is mildly distended. Hyperdense material is present in the gallbladder which could represent excreted iodinated contrast or biliary sludge versus stones Spleen: Normal. Adrenals: Normal. Pancreas: Normal. Kidneys: There are wedge-shaped areas of decreased cortical enhancement involving both kidneys, most notable in the inferior pole of the left kidney (series 6 image 50). Arthrosis. No focal lesion. Free fluid: None. Retroperitoneal/mesent tristan lymphadenopathy: Prominent mesenteric nodes which are subcentimeter in short axis diameter. Bowel: There is mild fat stranding around the greater curvature of the stomach. There are mildly dilated small bowel loops in the lower abdomen. No definite transition point. The colon is normal in caliber. There is a small amount of fat stranding adjacent to the splenic flexure of the colon. No mural thickening. No pneumatosis intestinalis or pneumatosis coli. The appendix is not seen, however there are no pericecal inflammatory changes. No pneumoperitoneum. Aorta: Atherosclerotic calcifications are seen in the aorta and its branches. The aorta is normal in caliber. Abdominal wall: Diffuse anasarca.. Pelvic organs/viscera: Somewhat limited due to streak artifact from metallic density foci in the patient's hand and then sided noted contrast within the urinary bladder. No obvious mass. Pelvic lymphadenopathy: None. Osseous structures: No abnormality. IMPRESSION: 1. No pneumoperitoneum to suggest hollow viscus perforation. Mild fat stranding at the splenic flexure, which may represent mild colitis. Mild perigastric fat stranding; correlate for possible gastritis. 2. Mildly dilated small bowel. Findings could be related to ileus or obstruction. No transition point is seen. 3. Wedge-shaped area of hypoenhancement in both kidneys, which may be related to polyp right is four bilateral renal infarcts. 4. Small bilateral pleural effusions. Bibasilar atelectasis. 5. Mildly distended gallbladder, which could be due to fasting but if there is concern for cholecystitis, ultrasound would be recommended. 6. Hepatic steatosis. Report Dictated on --- Final --- Dictated: 10/03/2019 11:39 am Dictating Physician: MD SHAY NICHOLAS Signed Date and Time: 10/03/2019 11:50 am Signed by: MD SHAY NICHOLAS Transcribed Date and Time: 10/03/2019 11:39 [place], [place] CT Abdomen/Pelvis w/ Contras ton 10-03-2019 CT Abdomen/Pelvis w/ Contrast Patient Name: DORY BASURTO CT Exam Date/Time 10/03/2019 10:41:[address] Abdomen/Pelvis w/ IV Contrast (IV Onl Ordering Physician MD NUGENT ERINN Accession Number [id number] CPT4 Codes 52853 (CT Abdomen/Pelvis w/ IV Contrast (IV Onl), Q9967 (CT ISOVUE 370MG/[id number] andMLand1) Reason For Exam GIB, concern for perforation Report CT ABDOMEN AND PELVIS WITH CONTRAST EXAM DATE AND TIME: 10/03/2019 10:41 AM EDT INDICATION: 63 years Female with a layering, possible perforation COMPARISON: None TECHNIQUE: Transaxial sequence through the abdomen and pelvis with 3 mm reconstruction with dynamic intravenous infusion of 75 mL of 370 mg% contrast media. Coronal and sagittal reconstructions included. Dose reduction was employed with automated exposure control. FINDINGS: Chest base: Small bilateral pleural effusions and bibasilar atelectasis. Liver: Generalized diminished attenuation as compared to the spleen, corresponding to diffuse fatty infiltration. No focal lesion. Biliary tree: Normal caliber. The gallbladder is mildly distended. Hyperdense material is present in the gallbladder which could represent excreted iodinated contrast or biliary sludge versus stones Spleen: Normal. Adrenals: Normal. Pancreas: Normal. Kidneys: There are wedge-shaped areas of decreased cortical enhancement involving both kidneys, most notable in the inferior pole of the left kidney (series 6 image 50). Arthrosis. No focal lesion. Free fluid: None. Retroperitoneal/mesent tristan lymphadenopathy: Prominent mesenteric nodes which are subcentimeter in short axis diameter. Bowel: There is mild fat stranding around the greater curvature of the stomach. There are mildly dilated small bowel loops in the lower abdomen. No definite transition point. The colon is normal in caliber. There is a small amount of fat stranding adjacent to the splenic flexure of the colon. No mural thickening. No pneumatosis intestinalis or pneumatosis coli. The appendix is not seen, however there are no pericecal inflammatory changes. No pneumoperitoneum. Aorta: Atherosclerotic calcifications are seen in the aorta and its branches. The aorta is normal in caliber. Abdominal wall: Diffuse anasarca.. Pelvic organs/viscera: Somewhat limited due to streak artifact from metallic density foci in the patient's hand and then sided noted contrast within the urinary bladder. No obvious mass. Pelvic lymphadenopathy: None. Osseous structures: No abnormality. IMPRESSION: 1. No pneumoperitoneum to suggest hollow viscus perforation. Mild fat stranding at the splenic flexure, which may represent mild colitis. Mild perigastric fat stranding; correlate for possible gastritis. 2. Mildly dilated small bowel. Findings could be related to ileus or obstruction. No transition point is seen. 3. Wedge-shaped area of hypoenhancement in both kidneys, which may be related to polyp right is four bilateral renal infarcts. 4. Small bilateral pleural effusions. Bibasilar atelectasis. 5. Mildly distended gallbladder, which could be due to fasting but if there is concern for cholecystitis, ultrasound would be recommended. 6. Hepatic steatosis. Report Dictated on Final Dictated: 10/03/2019 11:39 am Dictating Physician: MD SHAY NICHOLAS Signed Date and Time: 10/03/2019 11:50 am Signed by: MD SHAY NICHOLAS Transcribed Date and Time: 10/03/2019 11:39 Normal [facility] Comp Metabolic Panelon 10-02 ALT [Catalytic activity/Vol] 31 U/L Normal 0-34 [facility] Comment on above: Result Comment: The ALT test is performed by an updated assay method. Please note that the reference intervals have been changed and are now sex specific. Performed By: #### H EMOG, MG3, BMP3 #### [facility] [address] [place], [place] Calcium [Mass/Vol] 6.7 mg/dL Low 8.4-10.4 [facility] Comment on above: Performed By: #### H EMOG, MG3, BMP3 #### [facility] [address] [place], [place] Glucose [Mass/Vol] 89 mg/dL Normal 70-100 [facility] Comment on above: Performed By: #### H EMOG, MG3, BMP3 #### [facility] [address] [place], [place] ALP [Catalytic activity/Vol] 163 U/L High 38-126 [facility] Comment on above: Performed By: #### H EMOG, MG3, BMP3 #### [facility] [address] [place], [place] Anion gap [Moles/Vol] 8 Normal [facility] Comment on above: Performed By: #### H EMOG, MG3, BMP3 #### [facility] [facility] [address] [place], [place] AST [Catalytic activity/Vol] 49 U/L High 15-46 [facility] Comment on above: Performed By: #### H NGUYEN MG3, BMP3 #### [place] [address] [place], [place] Bilirubin [Mass/Vol] 0.2 mg/dL Normal 0.2-1.3 [facility] Comment on above: Performed By: #### H EMETERIOG, MG3, BMP3 #### [place] [address] [place], [place] CO2 [Moles/Vol] 18 mmol/L Low 22-30 [facility] Comment on above: Performed By: #### H NGUYEN MG3, BMP3 #### [place] [address] [place], [place] Creatinine [Mass/Vol] 1.39 mg/dL High 0.52-1.25 [facility] Comment on above: Performed By: #### H NGUYEN MG3, BMP3 #### [place] [address] [address] [place], [place] GFR/1.73 sq M predicted among blacks MDRD (S/P/Bld) [Vol rate/Area] 46.0 mL/min/{1.73_m2} Abnormal >60 [facility] Comment on above: Performed By: #### H EMOPerla, MG3, BMP3 #### [place] [address] [place], [place] GFR/1.73 sq M predicted among non-blacks MDRD (S/P/Bld) [Vol rate/Area] 39.7 mL/min/{1.73_m2} Abnormal >60 [facility] Comment on above: Result Comment: KDIG O guidelines provide the following GFR categories: Stage GFR(ml/min/1.73 m2) Terms G1 >=90 Normal or high G2 60-89 Mildly decreased* G3a 45-59 Mildly to moderately decreased G3b 30-44 Moderately to severely decreased G4 15-29 Severely decreased G5 <15 Kidney failure *Relative to young adult level. In the absence of evidence of kidney damage, neither GFR category G1 nor G2 fulfill the criteria for CKD. The CKD-EPI equation is validated in individuals 18 years of age and older. Currently the best equation for estimating glomerular filtration rate (GFR) from serum creatinine in children is the Bedside [place] equation. It is less accurate in patients with extremes of muscle mass, restriction of dietary protein, ingestion of creatine, extra-renal metabolism of creatinine, or treatment with medications that affect renal tubular creatinine secretion. Performed By: #### H NGUYEN MG3, BMP3 #### [place] [address] [address] [place], [place] Protein [Mass/Vol] 4.5 g/dL Low 6.3-8.2 [facility] Comment on above: Performed By: #### H NGUYEN MG3, BMP3 #### [place] [address] [place], [place] Urea nitrogen [Mass/Vol] 15 mg/dL Normal 7-20 [facility] Comment on above: Performed By: #### H NGUYEN MG3, BMP3 #### [place] [address] [address] [place], [place] Potassium [Moles/Vol] 3.0 mmol/L Low 3.5-5.1 [facility] Comment on above: Performed By: #### H NGUYEN MG3, BMP3 #### [place] [address] [place], [place] Sodium [Moles/Vol] 133 mmol/L Low 135-145 [facility] Comment on above: Performed By: #### H NGUYEN MG3, BMP3 #### [place] [address] [place] Albumin [Mass/Vol] 1.9 g/dL Low 3.5-5.0 [facility] Comment on above: Performed By: #### H NGUYEN MG3, BMP3 #### [address] Chloride [Moles/Vol] 107 mmol/L Normal 98-107 [place], [place] Comment on above: Performed By: #### H NGUYEN MG3, BMP3 #### [place] [address] [place] [address] Complete Urinalysison 2019 Appearance (U) Ex.Turbid Abnormal Clear [facility] Comment on above: Result Comment: . Performed By: #### H NGUYEN MG3, BMP3 #### [facility] [address], [place] Bacteria LM.HPF (Urine sed) [#/Area] Few Abnormal Negative [facility] Comment on above: Result Comment: . Performed By: #### Herman EMOPerla MG3, BMP3 #### [facility] [address] [place], [place] Bilirubin,Urine Negative Normal Negative [facility] Comment on above: Result Comment: . Performed By: #### Herman CEDILLO MG3, BMP3 #### [place] [address] [address] [place], [place] Cast, Hyaline 6 - 10 Abnormal Negative [facility] Comment on above: Result Comment: . Performed By: #### Herman EMOPerla MG3, BMP3 #### [place] [address] [address] [place], [place] Color (U) Yellow Normal Lt. Yellow [facility] Comment on above: Result Comment: . Performed By: #### H EMOPerla MG3, BMP3 #### [place] [address] [address] [place], [place] Glucose Ql (U) Normal Normal Normal (<70) [facility] Comment on above: Result Comment: . Performed By: #### Herman EMOG MG3, BMP3 #### [place] [address] [address] [place], [place] Ketone,Urine Negative Normal Negative [facility] Comment on above: Result Comment: . Performed By: #### H EMOG, MG3, BMP3 #### [place] [address] [address] [place], [place] Leukocytes,Urine 500 Marcia/uL Abnormal Negative [facility] Comment on above: Result Comment: . Performed By: #### H EMOG, MG3, BMP3 #### [place] [address] [address] [place], [place] Mucous Threads Few Normal Negative [facility] Comment on above: Result Comment: . Performed By: #### H EMOG, MG3, BMP3 #### [place] [address] [address] [place], [place] Nitrites,Urine Negative Normal Negative [facility] Comment on above: Result Comment: . Performed By: #### H EMOG, MG3, BMP3 #### [place] [address] [address] [place], [place] Occult Blood,Urine 0.5 mg/dL Abnormal Negative [facility] Comment on above: Result Comment: . Performed By: #### H EMOG, MG3, BMP3 #### [place] [address] [address] [place], [place] pH (U) 6.0 Normal 5.0-8.0 [facility] Comment on above: Result Comment: . Performed By: #### H EMOG, MG3, BMP3 #### [place] [address] [place], [place] Protein (U) [Mass/Vol] 30 mg/dL Abnormal Negative [facility] Comment on above: Result Comment: . Performed By: #### H EMOG, MG3, BMP3 #### [place] [address] [address] [place], [place] RBC LM.HPF (Urine sed) [#/Area] 51 - 100 Abnormal 0-2 [facility] Comment on above: Result Comment: . Performed By: #### H EMOG, MG3, BMP3 #### [place] [address] [place], [place] Specific Rush,Urine > 1.030 Abnormal 1.005 - 1.030 [facility] Comment on above: Result Comment: . Performed By: #### H EMOG, MG3, BMP3 #### [place] [address] [address] [place], [place] Squamous Epithelial 0 - 2 Normal 3-5 [facility] Comment on above: Result Comment: . Performed By: #### H EMOG, MG3, BMP3 #### [place] [address] [place], [place] Urobilinogen,Urine Normal Normal Normal (0-1) [facility] Comment on above: Result Comment: . Performed By: #### H EMOG, MG3, BMP3 #### [facility] [address] [place], [place] WBC LM.HPF (Urine sed) [#/Area] /[HPF] Abnormal 0-5 [facility] Comment on above: Result Comment: . Performed By: #### H EMOG, MG3, BMP3 #### [facility] [address] [place], [place] Comprehensive Metabolic Pane val 10-03-2019 Albumin [Mass/Vol] 1.9 g/dL Low 3.5 - 5 g/dL [place] ALP [Catalytic activity/Vol] 163 U/L High 38 - 126 U/L [place], [place] ALT [Catalytic activity/Vol] 31 U/L 0 - 34 U/L [place] Comment on above: The ALT test is perf ormed by an updated assay method. Please note that the reference intervals have been changed and are now sex specific. Anion gap [Moles/Vol] 8 mmol/L [place], [place] AST [Catalytic activity/Vol] 49 U/L High 15 - 46 U/L [place] Bilirubin Ql (U) 0.2 mg/dL 0.2 - 1.3 mg/dL [place] Calcium [Mass/Vol] 6.7 mg/dL Low 8.4 - 10. 4 mg/dL [place] CO2 [Moles/Vol] 18 mmol/L Low 22 - 30 mmol/L [place] Creatinine [Mass/Vol] 1.39 mg/dL High 0.52 - 1.25 mg/dL [place] EGFR IF NonAfrican [place] 39.7 mL/min Abnormal >60 [place] Comment on above: KDIGO guidelines pro vide the following GFR categories: Stage GFR(ml/min/1.73 m2) Terms G1 >=90 Normal or high G2 60-89 Mildly decreased* G3a 45-59 Mildly to moderately decreased G3b 30-44 Moderately to severely decreased G4 15-29 Severely decreased G5 <15 Kidney failure *Relative to young adult level. In the absence of evidence of kidney damage, neither GFR category G1 nor G2 fulfill the criteria for CKD. The CKD-EPI equation is validated in individuals 18 years of age and older. Currently the best equation for estimating glomerular filtration rate (GFR) from serum creatinine in children is the Bedside [place] equation. It is less accurate in patients with extremes of muscle mass, restriction of dietary protein, ingestion of creatine, extra-renal metabolism of creatinine, or treatment with medications that affect renal tubular creatinine secretion. GFR/1.73 sq M predicted among blacks MDRD (S/P/Bld) [Vol rate/Area] 46.0 mL/min/{1.73_m2} Abnormal >60 [place], [place] Glucose [Mass/Vol] 89 mg/dL 70 - 100 mg/dL [place] Interpretation and review of laboratory results Abnormal [place] Potassium [Moles/Vol] 3.0 mmol/L Low 3.5 - 5.1 mmol/L [place] Protein [Mass/Vol] 4.5 g/dL Low 6.3 - 8.2 g/dL [place] Sodium [Moles/Vol] 133 mmol/L Low 135 - 145 mmol/L [place] Urea nitrogen [Mass/Vol] 15 mg/dL 7 - 20 mg/dL [place] Fibrinogenon 10-03-2019 Fibrinogen 209 mg/dL Normal 200-400 [facility] Comment on above: Performed By: #### H NGUYEN MG3, BMP3 #### [facility] [address] [place] [address] Fibrinogen 209 mg/dL 200 - 400 mg/dL [place], [place] Hematologyon 10-03-2019 ABO and Rh group Nom (Bld) 5100 [place], [place] Hemoglobin AND Hematocriton 10-03-2019 Hematocrit (Bld) [Volume fraction] 28.1 % Low 35.0-47.0 [facility] Comment on above: Performed By: #### H NGUYEN, MG3, BMP3 #### [facility] [address] [place] [address] Hemoglobin (Bld) [Mass/Vol] 8.9 g/dL Low 11.7-16.0 [facility] Comment on above: Performed By: #### H NGUYEN MG3, BMP3 #### [facility] [employer] [place] [address], [place] Hematocrit (Bld) [Volume fraction] 28.2 % Low 35.0-47.0 [facility] Comment on above: Performed By: #### H NGUYEN MG3, BMP3 #### [place] [address] [place] Hemoglobin (Bld) [Mass/Vol] 8.8 g/dL Low 11.7-16.0 [facility] Comment on above: Result Comment: Post transfusion Performed By: #### H NGUYEN MG3, BMP3 #### [place] [address] [place], [place] Hemoglobin and Hematocrit, B loodon 10-03-2019 Hematocrit (Bld) [Volume fraction] 28.1 % Low 35 - 47 % [place] Hemoglobin (Bld) [Mass/Vol] 8.9 g/dL Low 11.7 - 16 g/dL [place] Interpretation and review of laboratory results Abnormal [facility] [employer] [place] Test [facility] by [facility] [id number] [place] [address] Hematocrit (Bld) [Volume fraction] 28.2 % Low 35 - 47 % [place] Hemoglobin (Bld) [Mass/Vol] 8.8 g/dL Low 11.7 - 16 g/dL [place], [place] Comment on above: Post transfusion Interpretation and review of laboratory results Abnormal [facility] [place] [place] Test Performed by [facility], [address] [place] [id number] [place] [address] Hemogramon 10-03-2019 Erythrocyte distribution width (RBC) [Ratio] 18.5 % High 11.5-14.5 [facility] Comment on above: Performed By: #### H NGUYEN, MG3, BMP3 #### [place] [address] [address] [place] Hematocrit (Bld) [Volume fraction] 20.2 % Low 35.0-47.0 [facility] Comment on above: Performed By: #### H NGUYEN MG3, BMP3 #### [place] [address] [place] Hemoglobin (Bld) [Mass/Vol] 6.1 g/dL Critically low 11.7-16.0 [facility] Comment on above: Result Comment: REPE ATED Performed By: #### Herman CEDILLO MG3, BMP3 #### [place] [address] [place], [place] MCH (RBC) [Entitic mass] 23.9 pg Low 26.0-34.0 [facility] Comment on above: Performed By: #### Hemran CEDILLO MG3, BMP3 #### [place] [address] [place] MCHC (RBC) [Mass/Vol] 30.0 % Low 32.0-36.0 [facility] Comment on above: Performed By: #### Herman CEDILLO MG3, BMP3 #### [place] [address] [place] MCV (RBC) [Entitic vol] 79.5 fL Normal 79.0-98.0 [facility] Comment on above: Performed By: #### Herman CEDILLO MG3, BMP3 #### [place] [address] [place] Platelet mean volume (Bld) [Entitic vol] 6.9 fL Low 7.4-10.4 [facility] Comment on above: Performed By: #### Herman CEDILLO MG3, BMP3 #### [place] [address] [place], [place] Platelets (Bld) [#/Vol] 545 10*3/uL High 140-440 [facility] Comment on above: Performed By: #### Heramn CEDILLO MG3, BMP3 #### [place] [address] [place], [place] RBC (Bld) [#/Vol] 2.54 10*6/uL Low 3.80-5.20 [facility] Comment on above: Performed By: #### H EMOG, MG3, BMP3 #### [facility] [address] [place], [place] WBC (Bld) [#/Vol] 25.4 10*3/uL High 3.6-10.7 [facility] Comment on above: Performed By: #### H EMOG, MG3, BMP3 #### [place] [address] [place], [place] Hepatic Functionon 0 ALP [Catalytic activity/Vol] 181 U/L High 38-126 [facility] Comment on above: Performed By: #### P T, LIPA4, LFT3, PCAL #### [place] [address] [place] ALT [Catalytic activity/Vol] 31 U/L Normal 0-34 [facility] Comment on above: Result Comment: The ALT test is performed by an updated assay method. Please note that the reference intervals have been changed and are now sex specific. Performed By: #### P T, LIPA4, LFT3, PCAL #### [place] [address] [place] AST [Catalytic activity/Vol] 63 U/L High 15-46 [facility] Comment on above: Performed By: #### P T, LIPA4, LFT3, PCAL #### [place] [address] [place] Protein [Mass/Vol] 4.6 g/dL Low 6.3-8.2 [facility] Comment on above: Performed By: #### P T, LIPA4, LFT3, PCAL #### [place] [address] [place] Bilirubin [Mass/Vol] 0.2 mg/dL Normal 0.2-1.3 [facility] Comment on above: Performed By: #### P T, LIPA4, LFT3, PCAL #### [place] [address] [place] Bilirubin.direct [Mass/Vol] 0.0 mg/dL Normal 0.0-0.3 [facility] Comment on above: Performed By: #### P T, LIPA4, LFT3, PCAL #### [facility] [address] [place], [place] Albumin [Mass/Vol] 1.9 g/dL Low 3.5-5.0 [facility] Comment on above: Performed By: #### P T, LIPA4, LFT3, PCAL #### [facility] [address] [place] Hepatic Function Panelon Albumin [Mass/Vol] 1.9 g/dL Low 3.5 - 5 g/dL [place], [place] ALP [Catalytic activity/Vol] 181 U/L High 38 - 126 U/L [place], [place] ALT [Catalytic activity/Vol] 31 U/L 0 - 34 U/L [place] Comment on above: The ALT test is perf ormed by an updated assay method. Please note that the reference intervals have been changed and are now sex specific. AST [Catalytic activity/Vol] 63 U/L High 15 - 46 U/L [place], [place] Bilirubin Ql (U) 0.2 mg/dL 0.2 - 1.3 mg/dL [place] Bilirubin.direct [Mass/Vol] 0.0 mg/dL 0 - 0.3 mg/dL [place] Interpretation and review of laboratory results Abnormal [place] Protein [Mass/Vol] 4.6 g/dL Low 6.3 - 8.2 g/dL [place] Lactic Acidon 10-03-2019 Lactate [Moles/Vol] 1.0 mmol/L Normal 0.7-2.0 [facility] Comment on above: Performed By: #### H EMOG, MG3, BMP3 #### [facility] [address] [place], [place] Lactic Acid, Plasmaon 2019 Lactate [Moles/Vol] 1 mmol/L 0.7 - 2 mmol/L [place], [place] Test Performed by [facility], [address], [place] Legionella Antigen, Urineon 10-03-2019 LEGIONELLA ANTIGEN Legionella antigen N OT DETECTED. [place], [place] Leukodepleted Red Cellson Leukodepleted Red Cells Leukodepleted Re d Cells: [id number] transfused 10/03/19 04:35 [facility] Unit Blood Type: O Unit Blood Rh: POS Blood Product Code: LP2 Unit Number: [id number] Unit Status: transfused Barcoded Unit Number: [id number] Barcoded Product Code: = Barcoded ABO/Rh: =%5100 Unit Expiration: Unit Volume Transfused: 300 Unit Transfusion Start Date/Time: Leukodepleted Red Cells: [id number] transfused 10/03/19 09:51 JMV Unit Blood Type: O Unit Blood Rh: POS Blood Product Code: LP2 Unit Number: [id number] Unit Status: transfused Barcoded Unit Number: =[id number] Barcoded Product Code: = Barcoded ABO/Rh: =%5100 Unit Expiration: Unit Volume Transfused: 300 Unit Transfusion Start Date/Time: Normal [facility] Comment on above: Performed By: #### T SGL #### [id number] [place] [address] #### LRC #### [place] [address] [place] [address] Lipaseon 10-03-2019 Lipase [Catalytic activity/Vol] 33 U/L Normal 23-300 [facility] Comment on above: Performed By: #### H EMOG, MG3, BMP3 #### [place] [address] [place] [address] Lipase [Catalytic activity/Vol] 28 U/L Normal 23-300 [facility] Comment on above: Performed By: #### P T, LIPA4, LFT3, PCAL #### [place] [address] [place] [address] Lipase [Catalytic activity/Vol] 33 U/L 23 - 300 U/L [place] Lipase [Catalytic activity/Vol] 28 U/L 23 - 300 U/L [place] Magnesiumon 10-03-2019 Magnesium [Mass/Vol] 2.2 mg/dL Normal 1.6-2.3 [facility] Comment on above: Performed By: #### H EMOG, MG3, BMP3 #### [place] [address] [place] [address] Magnesium [Mass/Vol] 2.2 mg/dL 1.6 - 2 .3 mg/dL [place], [place] Magnesium [Mass/Vol] 1.6 mg/dL Normal 1.6-2.3 [facility] Comment on above: Performed By: #### H EMOG, MG3, BMP3 #### [place] [address] [place] [address] Magnesium [Mass/Vol] 1.6 mg/dL 1.6 - 2 .3 mg/dL [place], [place] Metabolic Panelon 10-03-2019 Sodium [Moles/Vol] [id number] mmol/L [place], [place] Sodium [Moles/Vol] [id number] [place], [place] Sodium [Moles/Vol] transfused [place], [place] Otheron 10-03-2019 Test Performed by [address] [address] Specimen Source Comment:Urine, clean catch [place], [place] Test Performed by [facility], [address] [place] [id number] [place] [address] Test Performed by [id number] [place] [address] Test Performed by [id number] [place] [address] Test Performed by [address] PREPARE RBC (CROSSMATCH), 2 Unitson 10-03-2019 Blood product unit ID (Dose) [#] [id number] [place], [place] Blood product unit ID (Dose) [#] [id number] [place], [place] PROTIME INRon 10-03-2019 INR Coag (PPP) [Relative time] 1.2 {INR} High [place], [place] Comment on above: Recommended Anticoag ulant Therapy: SEE BELOW ----- INR of 2.0 - 3.0 : - Prophylaxis of Venous Thrombosis (high-risk surgery) - Treatment of Venous Thrombosis - Treatment of Pulmonary Embolism (Includes tissue heart valves, Acute Myocardial Infarction to prevent systemic embolism, Valvular Heart Disease, and Atrial Fibrillation) ----- INR of 2.5 - 3.5 : - Mechanical Prosthetic Valves (high risk) - If oral anticoagulant therapy is used to prevent Myocardial Infarction Interpretation and review of laboratory results Abnormal [place], [place] PT Coag (PPP) [Time] 13 s High 9 - 12 s [place], [place] Comment on above: . Test Performed by [facility], [address] [place] [address] Phosphoruson 10-03-2019 Phosphate [Mass/Vol] 4.2 mg/dL Normal 2.5-4.5 [facility] Comment on above: Performed By: #### H EMOG, MG3, BMP3 #### [address] [address] Phosphate [Mass/Vol] 4.2 mg/dL 2.5 - 4 .5 mg/dL [place] Procalcitoninon 10-03-2019 Procalcitonin 17.52 ng/mL Abnormal <0.10 [facility] Comment on above: Performed By: #### H EMOG, MG3, BMP3 #### [address] [address] Interpretation and review of laboratory results Abnormal [place], [place] Procalcitonin 17.52 ng/mL Abnormal <0.10 [place] Sodium [Moles/Vol] See Below [place], [place] Comment on above: PCT <0.50 = Low risk of severe sepsis and/or septic shock. PCT >2.00 = High risk of severe sepsis and/or septic shock. Test Performed by [facility], [address] [place] [id number] [place] [address] Interpretation See Below Normal [facility] Comment on above: Result Comment: PCT <0.50 = Low risk of severe sepsis and/or septic shock. PCT >2.00 = High risk of severe sepsis and/or septic shock. Performed By: #### H EMOG, MG3, BMP3 #### [address] Procalcitonin 16.71 ng/mL Abnormal <0.10 [facility] Comment on above: Performed By: #### P T, LIPA4, LFT3, PCAL #### [address] Interpretation and review of laboratory results Abnormal [place] Procalcitonin 16.71 ng/mL Abnormal <0.10 [place] Sodium [Moles/Vol] See Below [place] Comment on above: PCT <0.50 = Low risk of severe sepsis and/or septic shock. PCT >2.00 = High risk of severe sepsis and/or septic shock. Test Performed by [address] Interpretation See Below Normal [facility] Comment on above: Result Comment: PCT <0.50 = Low risk of severe sepsis and/or septic shock. PCT >2.00 = High risk of severe sepsis and/or septic shock. Performed By: #### P T, LIPA4, LFT3, PCAL #### [address] Prothrombin Timeon 0 INR Coag (PPP) [Relative time] 1.2 High 0.9-1.1 [facility] Comment on above: Result Comment: Mark mmended Anticoagulant Therapy: SEE BELOW ----- INR of 2.0 - 3.0 : - Prophylaxis of Venous Thrombosis (high-risk surgery) - Treatment of Venous Thrombosis - Treatment of Pulmonary Embolism (Includes tissue heart valves, Acute Myocardial Infarction to prevent systemic embolism, Valvular Heart Disease, and Atrial Fibrillation) ----- INR of 2.5 - 3.5 : - Mechanical Prosthetic Valves (high risk) - If oral anticoagulant therapy is used to prevent Myocardial Infarction Performed By: #### H EMETERIOG, MG3, BMP3 #### [facility] [address] [place] [address] PT Coag (PPP) [Time] 13.0 s High 9.0-12.0 [facility] Comment on above: Result Comment: . Performed By: #### H EMETERIOG, MG3, BMP3 #### [facility] [address] [place] [address] INR Coag (PPP) [Relative time] 1.2 High 0.9-1.1 [facility] Comment on above: Result Comment: Mark mmended Anticoagulant Therapy: SEE BELOW ----- INR of 2.0 - 3.0 : - Prophylaxis of Venous Thrombosis (high-risk surgery) - Treatment of Venous Thrombosis - Treatment of Pulmonary Embolism (Includes tissue heart valves, Acute Myocardial Infarction to prevent systemic embolism, Valvular Heart Disease, and Atrial Fibrillation) ----- INR of 2.5 - 3.5 : - Mechanical Prosthetic Valves (high risk) - If oral anticoagulant therapy is used to prevent Myocardial Infarction Performed By: #### P T, LIPA4, LFT3, PCAL #### [facility] [address] [place] [address] PT Coag (PPP) [Time] 13.0 s High 9.0-12.0 [facility] Comment on above: Result Comment: . Performed By: #### P T, LIPA4, LFT3, PCAL #### [facility] [address] [place] [address] Protime-INRon 10-03-2019 INR Coag (PPP) [Relative time] 1.2 {INR} [place] Comment on above: Recommended Anticoag ulant Therapy: SEE BELOW ----- INR of 2.0 - 3.0 : - Prophylaxis of Venous Thrombosis (high-risk surgery) - Treatment of Venous Thrombosis - Treatment of Pulmonary Embolism (Includes tissue heart valves, Acute Myocardial Infarction to prevent systemic embolism, Valvular Heart Disease, and Atrial Fibrillation) ----- INR of 2.5 - 3.5 : - Mechanical Prosthetic Valves (high risk) - If oral anticoagulant therapy is used to prevent Myocardial Infarction Interpretation and review of laboratory results Abnormal [place] PT Coag (PPP) [Time] 13 s High 9 - 12 s [place] Comment on above: . RESPIRATORY PCR PANELon 09-21 RESPIRATORY PCR PANEL RESPIRATORY PCR PA ALBA --> Status: F NEGATIVE: No targets were detected by the [employer] Upper Respiratory Pathogens PCR Panel. PLEASE NOTE: This assay DOES NOT detect SARS-CoV-2/COVID-19. _ The [employer] Upper Respiratory Pathogens PCR Panel can detect the following targets: Adenovirus, Coronavirus 229E, Coronavirus HKU1, Coronavirus NL63, Coronavirus OC43, Human Metapneumovirus, Human Rhinovirus/Enterovirus , Influenza A, Influenza B, Parainfluenza Virus 1, Parainfluenza Virus 2, Parainfluenza Virus 3, Parainfluenza Virus 4, Respiratory Syncytial Virus, Bordetella pertussis, Bordetella parapertussis, Chlamydia pneumoniae, Mycoplasma pneumoniae Respiratory Pathogens PCR Panel. PLEASE NOTE: This assay DOES NOT detect SARS-CoV-2/COVID-19. _ The [employer] Upper Respiratory Pathogens PCR Panel can detect the following targets: Adenovirus, Coronavirus 229E, Coronavirus HKU1, Coronavirus NL63, Coronavirus OC43, Human Metapneumovirus, Human Rhinovirus/Enterovirus , Influenza A, Influenza B, Parainfluenza Virus 1, Parainfluenza Virus 2, Parainfluenza Virus 3, Parainfluenza Virus 4, Respiratory Syncytial Virus, Bordetella pertussis, Bordetella parapertussis, Chlamydia pneumoniae, Mycoplasma pneumoniae Normal [facility] Comment on above: Order Comment: Speci men Source Comment:Nasopharyngeal Performed By: #### H EMOG, MG3, BMP3 #### [facility] [address] [place] [address] Respiratory Virus PCR Panelo n 10-03-2019 Respiratory Panel PCR NEGATIVE: No targe ts were detected by the [employer] Upper Respiratory Pathogens PCR Panel. PLEASE NOTE: This assay DOES NOT detect SARS-CoV-2/COVID-19. _ The [employer] Upper Respiratory Pathogens PCR Panel can detect the following targets: Adenovirus, Coronavirus 229E, Coronavirus HKU1, Coronavirus NL63, Coronavirus OC43, Human Metapneumovirus, Human Rhinovirus/Enterovirus , Influenza A, Influenza B, Parainfluenza Virus 1, Parainfluenza Virus 2, Parainfluenza Virus 3, Parainfluenza Virus 4, Respiratory Syncytial Virus, Bordetella pertussis, Bordetella parapertussis, Chlamydia pneumoniae, Mycoplasma pneumoniae [place], [place] Test Performed by [facility], [facility] [place] [address] Specimen Source Comment:Nasopharyngeal [place], [place] STREP PNEUMONIAE ANTIGENon 0 10-03-2019 STREP PNEUMONIAE ANTIGEN, URINE Strep pneumo antigen NOT DETECTED. [place], [place] TS GELon 10-03-2019 TS GEL ABO Group: O Rh, Gel: POS Antibody Screen Gel: NEG Normal [facility] Comment on above: Performed By: #### T SGL #### [address] [address] [place] [address] [facility] #### [facility] #### [address] [address] [place] [address] TYPE AND SCREENon 10-03-2019 Sodium [Moles/Vol] O [place], [place] Sodium [Moles/Vol] Positive [place] Sodium [Moles/Vol] Negative [place] Test Performed by [facility], [facility] [place] [address] [place] Urinalysison 10-03-2019 Appearance (U) Ex.Turbid Abnormal Clear NA [place] Comment on above: . Bacteria, UA Few Abnormal Negative /[HPF] [place] Comment on above: . Bilirubin Urine Negative Negative mg/dL [place] Comment on above: . Color (U) Yellow Lt. Yellow NA [place] Comment on above: . Glucose, Ur Normal Normal (<70) mg/dL [place] Comment on above: . Hyaline Casts, UA 6-10 Abnormal Negative /[LPF] [place] Comment on above: . Interpretation and review of laboratory results Abnormal [place] Ketones Ql (U) Negative Negative mg/dL [place] Comment on above: . LEUKOCYTES, UA 500 Abnormal Negative Marcia/uL [place] Comment on above: . Mucous Threads Few Negative /[LPF] [place] Comment on above: . Nitrite, Urine Negative Negative NA [place] Comment on above: . Occult Blood,Urine 0.5 mg/dL Abnormal Negative [place] Comment on above: . pH (U) 6.0 [pH] [place] Comment on above: . Protein (U) [Mass/Vol] 30 mg/dL Abnormal Negative Me [place], [place] Comment on above: . RBC (U) [#/Vol] 51-100 Abnormal 0 - 2 /[HPF] [place] Comment on above: . Specific Rush, Urine >1.030 Abnormal [place] Comment on above: . Squam Epithel, UA 0-2 3 - 5 /[HPF] [place] Comment on above: . Urobilinogen, Urine Normal Normal ( 0-1) mg/dL [place] Comment on above: . WBC, UA >100 Abnormal 0 - 5 /[HPF] [place] Comment on above: . [facility], [address] [place] [id number] [place] [address] XR ABDOMEN (KUB) (SINGLE AP VIEW)on 10-03-2019 Patient Name: DORY BASURTO ---Diagnostic Radiology--- Exam Date/Time 10/03/2019 16:47:00 EDT Exam CR Abdomen AP Ordering Physician [id number] PATEL Accession Number [id number] CPT4 Codes 13402 () Reason For Exam NG tube placement Report EXAMINATION: Abdomen: AP view. COMPARISON: 10/03/2019. REASON FOR STUDY: A G-tube placement. FINDINGS: Lower abdomen is not included in the radiograph. Distended small bowel loops are observed in the upper abdomen. No appreciable evidence of free intraperitoneal air. Osseous structures appear intact. Interstitial markings are prominent in the lower lungs. Heart is enlarged. Nasogastric tube projects over the gastric air bubble. CONCLUSIONS: 1. Small bowel ileus. 2. Nasogastric tube in the vicinity of the stomach. 3. Pulmonary interstitial edema. Report Dictated on --- Final --- Dictated: 10/03/2019 5:20 pm Dictating Physician: MD BOSTON B NELSON Signed Date and Time: 10/03/2019 5:23 pm Signed by: MD BOSTON B NELSON Transcribed Date and Time: 10/03/2019 5:20 [place], [place] [facility], [facility] From [facility] - 10/03/2019 5:24 PM EDT Patient Name: DORY BASURTO ---Diagnostic Radiology--- Exam Date/Time 10/03/2019 16:47:00 EDT Exam CR Abdomen AP Ordering Physician BIPIN REDDY Accession Number [id number] CPT4 Codes 28035 () Reason For Exam NG tube placement Report EXAMINATION: Abdomen: AP view. COMPARISON: 10/03/2019. REASON FOR STUDY: A G-tube placement. FINDINGS: Lower abdomen is not included in the radiograph. Distended small bowel loops are observed in the upper abdomen. No appreciable evidence of free intraperitoneal air. Osseous structures appear intact. Interstitial markings are prominent in the lower lungs. Heart is enlarged. Nasogastric tube projects over the gastric air bubble. CONCLUSIONS: 1. Small bowel ileus. 2. Nasogastric tube in the vicinity of the stomach. 3. Pulmonary interstitial edema. Report Dictated on --- Final --- Dictated: 10/03/2019 5:20 pm Dictating Physician: MD BOSTON B NELSON Signed Date and Time: 10/03/2019 5:23 pm Signed by: MD BOSTON B NELSON Transcribed Date and Time: 10/03/2019 5:20 [facility], [employer] [facility], [facility] Incoming Radiology Results From [facility] - 10/03/2019 4:05 PM EDT Patient Name: DORY BASURTO ---Diagnostic Radiology--- Exam Date/Time 10/03/2019 15:32:30 EDT Exam CR Abdomen AP Ordering Physician EDENILSON BURNS MD, CHARLES V Accession Number [id number] CPT4 Codes 70882 () Reason For Exam NG placemnt Report EXAM TYPE: CR Abdomen AP EXAM DATE AND TIME: 10/03/2019 3:32 PM EDT INDICATION: 63 years Female with enteric tube placement COMPARISON: CT from earlier today TECHNIQUE: AP supine radiograph of the abdomen and pelvis was obtained. FINDINGS: An enteric tube terminates overlying the lower thoracic esophagus. Advancement recommended. No dilated small bowel loops are seen, the evaluation is limited as the lower abdomen is not included in the [id number].. Limited evaluation for free air or air-fluid levels on supine-only imaging. No abnormal soft tissue calcifications are seen. The visualized osseous structures are unremarkable. There are coarse interstitial markings likely related to chronic pulmonary disease. IMPRESSION: Enteric tube terminating overlying the distal thoracic esophagus; recommend repositioning. Report Dictated on --- Final --- Dictated: 10/03/2019 4:01 pm Dictating Physician: MD SHAY NICHOLAS Signed Date and Time: 10/03/2019 4:03 pm Signed by: MD SHAY NICHOLAS Transcribed Date and Time: 10/03/2019 4:01 [place] Patient Name: DORY BASURTO ---Diagnostic Radiology--- Exam Date/Time 10/03/2019 15:32:30 EDT Exam CR Abdomen AP Ordering Physician EDENILSON BURNS MD, CHARLES V Accession Number [id number] CPT4 Codes 17382 () Reason For Exam NG placemnt Report EXAM TYPE: CR Abdomen AP EXAM DATE AND TIME: 10/03/2019 3:32 PM EDT INDICATION: 63 years Female with enteric tube placement COMPARISON: CT from earlier today TECHNIQUE: AP supine radiograph of the abdomen and pelvis was obtained. FINDINGS: An enteric tube terminates overlying the lower thoracic esophagus. Advancement recommended. No dilated small bowel loops are seen, the evaluation is limited as the lower abdomen is not included in the [id number].. Limited evaluation for free air or air-fluid levels on supine-only imaging. No abnormal soft tissue calcifications are seen. The visualized osseous structures are unremarkable. There are coarse interstitial markings likely related to chronic pulmonary disease. IMPRESSION: Enteric tube terminating overlying the distal thoracic esophagus; recommend repositioning. Report Dictated on --- Final --- Dictated: 10/03/2019 4:01 pm Dictating Physician: MD SHAY NICHOLAS Signed Date and Time: 10/03/2019 4:03 pm Signed by: MD SHAY NICHOLAS Transcribed Date and Time: 10/03/2019 4:01 [place], [place] Vital Signs Date Time Vital Sign Value Performing Clinician Daniella little 10-20-2019 12:50-0400 Pulse Oximetry 94 % [place], [place] 10-20-2019 12:50-0400 Respiratory Rate 20 /min [place], [place] 10-20-2019 08:36-0400 Body Temperature 97.11 [degF] [place], [place] 10-20-2019 08:36-0400 BP Diastolic 82 mm[Hg] [place], [place] 10-20-2019 08:36-0400 BP Systolic 129 mm[Hg] [place], [place] 10-20-2019 08:36-0400 Pulse (Heart Rate) 103 /min [place], [place] 10-20-2019 04:25-0400 BMI (Body Mass Index) 17.04 kg/m2 [place], [place] 10-20-2019 04:25-0400 Body weight 49.35 kg [place], [place] 10-18-2019 15:02-0400 Height 170.2 cm [place] Encounters Encounter Date Encounter Type Care Provider Facility Start: 09-28-2024 ambulatory Lorraine Stanley Facility:[facility] Start: 08-27-2024 End: 08-27-[address] Lorraine Stanley DO Work Phone: -[facility] [place] Start: 08-27-2024 End: 08-27-2024 Patient encounter procedure Kylie Jang VENEER JOINTER OFFBEARER-C -[facility] [place] Work Phone: Start: 08-27-2024 End: 08-27-2024 ambulatory Lorraine Stanley Facility:[facility] Start: 08-02-2024 End: 08-02-[address] Lorraine Stanley DO Work Phone: [facility] Work Phone: Start: 08-02-2024 End: 08-02-[address] Lorraine Stanley DO -[facility] [place] Work Phone: Start: 08-02-2024 End: 08-02-2024 ambulatory Lorraine Stanley Facility:[facility] Start: 06-29-2024 End: 06-29-[address] Lorraine Stanley DO Work Phone: [facility] Work Phone: Start: 06-29-2024 End: 06-29-[address] Lorraine Stanley DO -Laboratory, [place] Work Phone: Start: 06-29-2024 End: 06-29-2024 [facility] Start: 12-02-2023 End: 12-02-2023 ambulatory Lorrainecolby Stanley Facility:[facility] Start: 04-15-2023 End: 04-15-2023 ambulatory [facility] Work Phone: Start: 04-15-2023 End: 04-15-2023 Patient encounter procedure [facility]-Radiology, [place] Work Phone: Start: 10-26-2022 End: 10-26-2022 ambulatory [facility] Work Phone: Start: 10-26-2022 End: 10-26-2022 Patient encounter procedure [facility]-Cat Scan, [facility] Work Phone: Start: 08-26-2022 End: 08-26-2022 ambulatory [facility] Work Phone: Start: 08-26-2022 End: 08-26-2022 Patient encounter procedure [facility]-Outpatient Bone Densitometry Work Phone: Start: 08-11-2021 End: 08-11-2021 [facility] Start: 10-03-2019 End: 10-20-2019 Evaluation and management of inpatient Yehuda Mackenzie Work Phone: [facility] Procedures Date Procedure Procedure Detail Performing Clinician Start: 08-27-2024 X-ray of chest, PA a nd lateral views Dr. Lorraine Stanley DO Work Phone: Start: 06-29-2024 Vitamin D, 25-hydrox y measurement Dr. Lorraine Stanley DO Work Phone: Comment on above: Vitamin D StatusDefi ciency: <20 ng/mL (50nmol/L)Insufficiency: 20-30 ng/mL (50-75 nmol/L)Sufficiency: 30-100 ng/mL (75-250 nmol/L)Toxicity: >100 ng/mL (>250 nmol/L) Start: 06-29-2024 X-ray of thoracic sp ine, three views Dr. Lorraine Stanley DO Work Phone: Start: 04-15-2023 Radiography of thora cic spine Start: 04-15-2023 X-ray of lumbosacral spine Start: 10-26-2022 CT of chest Start: 08-26-2022 Dual energy X-ray absorptiometry Start: 08-11-2021 Radiography of thora cic spine Start: 10-20-2019 Gluc bld gluc mntr d ev cleared fda spec home use Abelino [employer] Work Phone: Start: 10-20-2019 Gluc bld gluc mntr d ev cleared fda spec home use Abelino Disabato Work Phone: Start: 10-20-2019 Assay of magnesium Robert hailey J [employer] Work Phone: Start: 10-20-2019 Assay of phosphorus inorganic Tierney J [employer] Work Phone: Start: 10-20-2019 Basic metabolic pane l calcium total Tierney J [employer] Work Phone: Start: 10-20-2019 Hepatic function panel Tierney J [employer] Work Phone: Start: 10-20-2019 Prothrombin time Freder ick J [employer] Work Phone: Start: 10-20-2019 Blood count complete automated Tierney J [employer] Work Phone: Start: 10-20-2019 Calcium ionized Frederi ck Booker [employer] Work Phone: Start: 10-19-2019 Gluc bld gluc mntr d ev cleared fda spec home use Abelino [employer] Work Phone: Start: 10-19-2019 Gluc bld gluc mntr d ev cleared fda spec home use Abelino [employer] Work Phone: Start: 10-19-2019 Gluc bld gluc mntr d ev cleared fda spec home use Abelino [employer] Work Phone: Start: 10-19-2019 Assay of magnesium Robert hailey Celeste [employer] Work Phone: Start: 10-19-2019 Assay of phosphorus inorganic Tierney Celeste [employer] Work Phone: Start: 10-19-2019 Basic metabolic pane l calcium total Tierney Celeste [employer] Work Phone: Start: 10-19-2019 Blood count complete automated Tierney Booker [employer] Work Phone: Start: 10-19-2019 Calcium ionized Clarkderi ck Booker [employer] Work Phone: Start: 10-19-2019 Hepatic function panel Tierney Celeste [employer] Work Phone: Start: 10-19-2019 Prothrombin time Freder ick Booker [employer] Work Phone: Start: 10-18-2019 Gluc bld gluc mntr d ev cleared fda spec home use Abelino [employer] Work Phone: Start: 10-18-2019 Gluc bld gluc mntr d ev cleared fda spec home use Yehuda Mackenzie Work Phone: Start: 10-18-2019 End: 10-18-2019 Gluc bld gluc mntr dev cleared fda spec home use Abelino [employer] Work Phone: Start: 10-18-2019 Assay of magnesium Robert hailey Booker [employer] Work Phone: Start: 10-18-2019 Assay of phosphorus inorganic Tierney J [employer] Work Phone: Start: 10-18-2019 Basic metabolic pane l calcium total Tierney J [employer] Work Phone: Start: 10-18-2019 Blood count complete automated Tierney [employer] Work Phone: Start: 10-18-2019 Calcium ionized Frederi ck [employer] Work Phone: Start: 10-18-2019 Hepatic function panel Tierney J [employer] Work Phone: Start: 10-18-2019 Prothrombin time Freder ick J [employer] Work Phone: Start: 10-17-2019 Gluc bld gluc mntr d ev cleared fda spec home use Abelino [employer] Work Phone: Start: 10-17-2019 Gluc bld gluc mntr d ev cleared fda spec home use Abelino [employer] Work Phone: Start: 10-17-2019 Gluc bld gluc mntr d ev cleared fda spec home use Yehuda Mackenzie Work Phone: Start: 10-17-2019 Gluc bld gluc mntr d ev cleared fda spec home use Abelino [employer] Work Phone: Start: 10-17-2019 Assay of magnesium Robert hailey J [employer] Work Phone: Start: 10-17-2019 Assay of phosphorus inorganic Tierney J [employer] Work Phone: Start: 10-17-2019 Basic metabolic pane l calcium total Tierney [employer] Work Phone: Start: 10-17-2019 Blood count complete automated Tierney [employer] Work Phone: Start: 10-17-2019 Calcium ionized Frederi ck [employer] Work Phone: Start: 10-17-2019 Hepatic function panel Tierney [employer] Work Phone: Start: 10-17-2019 Prothrombin time Freder ick [employer] Work Phone: Start: 10-16-2019 Gluc bld gluc mntr d ev cleared fda spec home use Yehuda Mackenzie Work Phone: Start: 10-16-2019 Gluc bld gluc mntr d ev cleared fda spec home use Yehuda Mackenzie Work Phone: Start: 10-16-2019 Assay of magnesium [facility] Work [facility]: Start: 10-16-2019 Assay of phosphorus inorganic [facility] Work Phone: Start: 10-16-2019 Basic metabolic pane l calcium total [facility]ney [facility] Work Phone: Start: 10-16-2019 Radiologic exam ches t single view Cory Alvarez Work Phone: Start: 10-16-2019 Gluc bld gluc mntr d ev cleared fda spec home use Yehuda Mackenzie Work Phone: Start: 10-16-2019 Gluc bld gluc mntr d ev cleared fda spec home use Yehuda Mackenzie Work Phone: Start: 10-16-2019 Assay of magnesium Sohail rosalva Nix[employer] Work Phone: Start: 10-16-2019 Assay of phosphorus inorganic Milesradha Nix[employer] Work Phone: Start: 10-16-2019 Basic metabolic pane l calcium total Milesradha Nixoni Work Phone: Start: 10-16-2019 Blood count complete automated Tierney J [facility] Work Phone: Start: 10-16-2019 Calcium ionized Frederi ck J [facility] Work Phone: Start: 10-16-2019 Hemoglobin glycosylated a1c Miles Burgei Work Phone: Start: 10-16-2019 Hepatic function panel Tierney J [facility] Work Phone: Start: 10-16-2019 Prothrombin time Freder ick J [facility] Work Phone: Start: 10-15-2019 Gluc bld gluc mntr d ev cleared fda spec home use Yehuda Mackenzie Work Phone: Start: 10-15-2019 Assay of magnesium Robert hailey [employer] Work Phone: Start: 10-15-2019 Assay of phosphorus inorganic Tierney J [facility] Work Phone: Start: 10-15-2019 Basic metabolic pane l calcium total Tierney J [employer] Work Phone: Start: 10-15-2019 End: 10-15-2019 Gluc bld gluc mntr dev cleared fda spec home use Yehuda Mackenzie Work Phone: Start: 10-15-2019 Assay of magnesium Robert hailey [employer] Work Phone: Start: 10-15-2019 Assay of phosphorus inorganic Tierney J [facility] Work Phone: Start: 10-15-2019 Basic metabolic pane l calcium total Tierney J [facility] Work Phone: Start: 10-15-2019 Blood count complete automated Tierney J [facility] Work Phone: Start: 10-15-2019 Calcium ionized Frederi ck J [facility] Work Phone: Start: 10-15-2019 Hepatic function panel Tierney J [facility] Work Phone: Start: 10-15-2019 Prothrombin time Freder ick J [facility] Work Phone: Start: 10-14-2019 Gluc bld gluc mntr d ev cleared fda spec home use Yehuda Mackenzie Work Phone: Start: 10-14-2019 Radiologic exam abdo men 1 view Miles Pompa Work Phone: Start: 10-14-2019 Assay of magnesium Robert hailey [facility] Work Phone: Start: 10-14-2019 Assay of phosphorus inorganic Tierney J [employer] Work Phone: Start: 10-14-2019 Basic metabolic pane l calcium total Tierney J [employer] Work Phone: Start: 10-14-2019 Gluc bld gluc mntr d ev cleared fda spec home use Yehuda Mackenzie Work Phone: Start: 10-14-2019 Speech and language therapy regime Nella Isaac Beardhiral Work Phone: Start: 10-14-2019 Radiologic exam ches t single view Tierney J [employer] Work Phone: Start: 10-14-2019 Gluc bld gluc mntr d ev cleared fda spec home use Yehuda Mackenzie Work Phone: Start: 10-14-2019 Assay of magnesium Robert hailey J [employer] Work Phone: Start: 10-14-2019 Assay of phosphorus inorganic Tierney J [employer] Work Phone: Start: 10-14-2019 Basic metabolic pane l calcium total Tierney J [employer] Work Phone: Start: 10-14-2019 Blood count complete automated Tierney J [employer] Work Phone: Start: 10-14-2019 Calcium ionized Frederi ck J [employer] Work Phone: Start: 10-14-2019 Hepatic function panel Sherry Suarez Start: 10-14-2019 Prothrombin time Freder ick J [employer] Work Phone: Start: 10-13-2019 Gluc bld gluc mntr d ev cleared fda spec home use Yehuda Mackenzie Work Phone: Start: 10-13-2019 Gluc bld gluc mntr d ev cleared fda spec home use Yehuda Mackenzie Work Phone: Start: 10-13-2019 Gluc bld gluc mntr d ev cleared fda spec home use Yehuda Mackenzie Work Phone: Start: 10-13-2019 Assay of magnesium Robert hailey J [employer] Work Phone: Start: 10-13-2019 Assay of phosphorus inorganic Tierney J [employer] Work Phone: Start: 10-13-2019 Basic metabolic pane l calcium total Tierney J [employer] Work Phone: Start: 10-13-2019 Gluc bld gluc mntr d ev cleared fda spec home use Yehuda Mackenzie Work Phone: Start: 10-13-2019 Gluc bld gluc mntr d ev cleared fda spec home use Yehuda Mackenzie Work Phone: Start: 10-13-2019 Radiologic exam abdo men 1 view Aly B Abena Work Phone: Start: 10-13-2019 Assay of magnesium Robert hailey [employer] Work Phone: Start: 10-13-2019 Assay of phosphorus inorganic Tierney J [employer] Work Phone: Start: 10-13-2019 Basic metabolic pane l calcium total Tierney J [employer] Work Phone: Start: 10-13-2019 Blood count complete automated Tierney J [employer] Work Phone: Start: 10-13-2019 Hepatic function panel Tierney J [employer] Work Phone: Start: 10-13-2019 Prothrombin time Freder ick J [employer] Work Phone: Start: 10-12-2019 Gluc bld gluc mntr d ev cleared fda spec home use Yehuda Mackenzie Work Phone: Start: 10-12-2019 Assay of magnesium Robert hailey [employer] Work Phone: Start: 10-12-2019 Assay of phosphorus inorganic Tierney J [employer] Work Phone: Start: 10-12-2019 Basic metabolic pane l calcium total Tierney J [employer] Work Phone: Start: 10-12-2019 Gluc bld gluc mntr d ev cleared fda spec home use Yehuda Mackenzie Work Phone: Start: 10-12-2019 ADD ON LAB TEST Yessenia Pompa Work Phone: Start: 10-12-2019 Assay of magnesium Robert hailey [employer] Work Phone: Start: 10-12-2019 Assay of phosphorus inorganic Tierney J [employer] Work Phone: Start: 10-12-2019 Basic metabolic pane l calcium total Tierney White Work Phone: Start: 10-12-2019 Ecg routine ecg w/le ast 12 lds w/i&r Sherry Suarez Start: 10-12-2019 Gluc bld gluc mntr d ev cleared fda spec home use Yehuda Mackenzie Work Phone: Start: 10-12-2019 Blood count complete automated Tierney Booker White Work Phone: Start: 10-12-2019 Radiologic exam ches t single view Miles Pompa Work Phone: Start: 10-12-2019 Radiologic exam abdo men 1 view Aly B Abena Work Phone: Start: 10-12-2019 Assay of magnesium Lissette dolclarisse Ivey Work Phone: Start: 10-12-2019 Assay of phosphorus inorganic Elizabeth Ivey Work Phone: Start: 10-12-2019 Basic metabolic pane l calcium total Elizabeth Loni Work Phone: Start: 10-12-2019 Calcium ionized Clarkderi ck Booker [employer] Work Phone: Start: 10-12-2019 Hepatic function panel Tierney J [employer] Work Phone: Start: 10-12-2019 Prothrombin time Freder margaritak Booker [employer] Work Phone: Start: 10-11-2019 Inf agent det nuclei c acid clostridium amp probe Sherry Suarez Start: 10-11-2019 Iadna-dna/rna gi pth gn multiplex probe tq 12-25 Aneil A J Rg Work Phone: Start: 10-11-2019 Antinuclear antibodies angela Miles Pompa Work Phone: Start: 10-11-2019 Blood count complete automated Sherry Suarez Start: 10-11-2019 Fluorescent nonnfct agt antb screen ea antibody Miles Pompa Work Phone: Start: 10-11-2019 Radiologic exam abdo men 1 view Tierney Celeste [employer] Work Phone: Start: 10-11-2019 Iadna respiratry pro be & rev trnscr 02-14 target Sherry Suarez Start: 10-11-2019 Cul bact xcpt urine blood/stool aerobic isol Nella Chu Work Phone: Start: 10-11-2019 End: 10-11-2019 Smr prim src fluorescent&/afs bct fngi parasit Nella Chu Work Phone: Start: 10-11-2019 Thoracentesis for aspiration Sherry Suarez Start: 10-11-2019 ADD ON LAB TEST Scooterol clarisse Ivey Work Phone: Start: 10-11-2019 ADD ON LAB TEST Yessenia Pompa Work Phone: Start: 10-11-2019 Assay of magnesium [employer] Work Phone: Start: 10-11-2019 Assay of phosphorus inorganic [employer] Work Phone: Start: 10-11-2019 BASIC METABOLIC PANE L W/ REFLEX TO MG FOR LOW K [employer] Work Phone: Start: 10-11-2019 Blood count complete auto&auto difrntl wbc [employer] Work Phone: Start: 10-11-2019 Hepatic function panel [employer] Work Phone: Start: 10-11-2019 Lactate dehydrogenase ldh [employer] Work Phone: Start: 10-11-2019 MANUAL DIFFERENTIAL [employer] Work Phone: Start: 10-11-2019 Procalcitonin (pct) Richard Pompa Work Phone: Start: 10-10-2019 Cul bact xcpt urine blood/stool aerobic isol Nadir Messer Work Phone: Start: 10-10-2019 Smr prim src gram/gi emsa stain bct fungi/cell Nadir Rae Gui Work Phone: Start: 10-10-2019 DIFFERENTIAL, BODY FLUID Nadir Messer Work Phone: Start: 10-10-2019 Glucose body fluid o ther than blood Nadir Messer Work Phone: Start: 10-10-2019 Lactate dehydrogenase ldh Nadir Messer Work Phone: Start: 10-10-2019 Ph body fluid not el sewhere specified Nadir Messer Work Phone: Start: 10-10-2019 TOTAL PROTEIN, FLUID Ro espinoza Messer Work Phone: Start: 10-10-2019 COVID-19 Miles B justincorey Work Phone: Start: 10-10-2019 ADD ON LAB TEST Yessenia Pompa Work Phone: Start: 10-10-2019 Fibrin dgradj produc ts d-dimer quantitative Cece Jerry Work Phone: Start: 10-10-2019 Assay of lactate Yehuda Mackenzie Work Phone: Start: 10-10-2019 Assay of troponin quantitative Yehuda Mackenzie Work Phone: Start: 10-10-2019 Blood count complete auto&auto difrntl wbc Yehuda Mackenzie Work Phone: Start: 10-10-2019 Ecg routine ecg w/le ast 12 lds w/i&r Yehuda Mackenzie Work Phone: Start: 10-10-2019 Radiologic exam ches t single view Yehuda Mackenzie Work Phone: Start: 10-10-2019 BLOOD GAS, ARTERIAL Tho hebert Darnell Work Phone: Start: 10-10-2019 Thoracentesis for aspiration Nadir Messer Work Phone: Start: 10-10-2019 Radiologic exam abdo men 1 view Adin Arana Work Phone: Start: 10-10-2019 Cell count misc body fluids w/differential count Nadir Messer Work Phone: Start: 10-10-2019 Cytopath fl nongyn, sm/fltr Nadir Messer Work Phone: Start: 10-10-2019 Ct thorax w/o contra st material Kilo Helms Work Phone: Start: 10-10-2019 Assay of magnesium Kilo Helms Work Phone: Start: 10-10-2019 BASIC METABOLIC PANE L W/ REFLEX TO MG FOR LOW K Kilo Helms Work Phone: Start: 10-10-2019 Blood count complete auto&auto difrntl wbc Kilo Helms Work Phone: Start: 10-09-2019 Radiologic exam ches t single view Nivia Curtis Start: 10-09-2019 Natriuretic peptide Kilo Helms Work Phone: Start: 10-09-2019 Echo tthrc r-t 2d w/wom-mode compl spec&colr d Tierney Coelhoti Work Phone: Start: 10-09-2019 Assay of magnesium Jord an Alvarez Work Phone: Start: 10-09-2019 Assay of phosphorus inorganic Cory Alvarez Work Phone: Start: 10-09-2019 Blood count complete auto&auto difrntl wbc Cory Alvarez Work Phone: Start: 10-09-2019 Calcium ionized Cory Alvarez Work Phone: Start: 10-09-2019 Comprehensive metabo lic panel Cory Alvarez Work Phone: Start: 10-09-2019 Prothrombin time Cory Alvarez Work Phone: Start: 2019 Microscopic examinat ion of blood, culture Comment on above: Order Comment: Speci men Source Comment:Blood Performed By: #### T SGL #### [facility] [address], [place] [id number] [place] [address] #### LRC #### [facility] [address] [place] [address] Start: 2019 Microscopic examinat ion of blood, culture Comment on above: Order Comment: Speci men Source Comment:Blood Performed By: #### T SGL #### [facility] [address] [place] [address] [facility] #### LRC #### [facility] [address] [place] [address] Start: 2019 End: 2019 Ecg routine ecg w/least 12 lds w/i&r Sivan Carlson Work Phone: Start: 2019 Assay of magnesium Jord an Alvarez Work Phone: Start: 2019 Assay of phosphorus inorganic Cory Alvarez Work Phone: Start: 2019 Blood count complete auto&auto difrntl wbc Cory Alvarez Work Phone: Start: 2019 Calcium ionized Cory Alvarez Work Phone: Start: 2019 Comprehensive metabo lic panel Cory Alvarez Work Phone: Start: 2019 Prothrombin time Cory Alvarez Work Phone: Start: 10-07-2019 Radiologic exam abdo men 1 view Tierney White Work Phone: Start: 10-07-2019 RESEARCH AIDE CLINICAL BEDSIDE SWALLOW EVALUATION & TREATMENT Sivan Carlson Work Phone: Start: 10-07-2019 Cortisol total Aly B Sarkes Work Phone: Start: 10-07-2019 EXTUBATION Aly B S arkes Work Phone: Start: 10-07-2019 Radiologic exam ches t single view Bipin Stephenson Work Phone: Start: 10-07-2019 BLOOD GAS, ARTERIAL Gabriel Stephenson Work Phone: Start: 10-07-2019 Assay of magnesium Jord an Alvarez Work Phone: Start: 10-07-2019 Assay of phosphorus inorganic Cory Alvarez Work Phone: Start: 10-07-2019 Blood count complete auto&auto difrntl wbc Cory Alvarez Work Phone: Start: 10-07-2019 Calcium ionized Cory Alvarez Work Phone: Start: 10-07-2019 Comprehensive metabo lic panel Cory Alvarez Work Phone: Start: 10-07-2019 Procalcitonin (pct) Rolan malena Forrestert Work Phone: Start: 10-07-2019 Prothrombin time Cory Alvarez Work Phone: Start: 10-06-2019 CT Abdomen and Pelvi s W contrast IV Tierney Celeste Qubti Work Phone: Start: 10-06-2019 Radiologic exam abdo men 1 view Curt Bradshaw Gladis Work Phone: Start: 10-06-2019 Assay of magnesium Jord an Alvarez Work Phone: Start: 10-06-2019 Assay of phosphorus inorganic Cory Alvarez Work Phone: Start: 10-06-2019 Blood count hemoglobin Nella L Margiotta Work Phone: Start: 10-06-2019 Calcium ionized Cory Alvarez Work Phone: Start: 10-06-2019 Comprehensive metabo lic panel Cory Alvarez Work Phone: Start: 10-06-2019 Blood count complete auto&auto difrntl wbc Cory Alvarez Work Phone: Start: 10-06-2019 Prothrombin time Cory Alvarez Work Phone: Start: 10-06-2019 Radiologic exam abdo men 1 view Tierney Celeste Qubti Work Phone: Start: 10-06-2019 Radiologic exam ches t single view Bipin Stephenson Work Phone: Start: 10-06-2019 BLOOD GAS, ARTERIAL Gabriel Stephenson Work Phone: Start: 10-05-2019 Ecg routine ecg w/le ast 12 lds w/i&r Nella L Margiotta Work Phone: Start: 10-05-2019 Basic metabolic pane l calcium total Nella L Margiotta Work Phone: Start: 10-05-2019 Basic metabolic pane l calcium total Nella L Margiotta Work Phone: Start: 10-05-2019 Smr prim src gram/gi emsa stain bct fungi/cell Cory Alvarez Work Phone: Start: 10-05-2019 Virus centrifuge enh ncd id imfluor stain ea Cory Alvarez Work Phone: Start: 10-05-2019 BLOOD GAS, ARTERIAL Niki rles Matriano-Burns Work Phone: Start: 10-05-2019 Iadna-dna/rna gi pth gn multiplex probe tq 12- [employer] Work Phone: Start: 10-05-2019 Inf agent det nuclei c acid clostridium amp probe Cory [employer] Work Phone: Start: 10-05-2019 Smr prim src gram/gi emsa stain bct fungi/cell Bipin Stephenson Work Phone: Start: 10-05-2019 Virus centrifuge enh ncd id imfluor stain ea Bipin Stephenson Work Phone: Start: 10-05-2019 HM ENDOSCOPY REPORT 3m Scanning Start: 10-05-2019 BLOOD GAS, ARTERIAL Gabriel Stephenson Work Phone: Start: 10-05-2019 Basic metabolic pane l calcium total Nella L Margiotta Work Phone: Start: 10-05-2019 Drug screen quantita tive vancomycin Cory Alvarez Work Phone: Start: 10-05-2019 Radiologic exam ches t single view Bipin Stephenson Work Phone: Start: 10-05-2019 Radiologic exam abdo men 1 view Geovanna Montgomery Work Phone: Start: 10-05-2019 Radiologic exam ches t single view Tierney White Work Phone: Start: 10-05-2019 End: 10-05-2019 Blood count hemoglobin Nellabi Guerrero a Work Phone: Start: 10-05-2019 Transfuse erythrocyt es [Volume] Nella L Cecytta Work Phone: Start: 10-05-2019 Assay of magnesium Babita sa Isaac Guerreroa Work Phone: Start: 10-05-2019 Assay of phosphorus inorganic Nella Isaac Samtta Work Phone: Start: 10-05-2019 Calcium ionized Cory Alvarez Work Phone: Start: 10-05-2019 Comprehensive metabo lic panel Nellabi Samtta Work Phone: Start: 10-05-2019 Procalcitonin (pct) Rolan malena Alvarez Work Phone: Start: 10-05-2019 Prothrombin time Cory Alvarez Work Phone: Start: 10-05-2019 Transfuse erythrocyt es [Volume] Nellasa Isaac Guerreroa Work Phone: Start: 10-04-2019 Basic metabolic pane l calcium total Edouard Kenney Work Phone: Start: 10-04-2019 Blood count complete auto&auto difrntl wbc Cory Alvarez Work Phone: Start: 10-04-2019 Radiologic exam abdo men 1 view Edouard Kenney Work Phone: Start: 10-04-2019 Assay of haptoglobin quantitative Cory Alvarez Work Phone: Start: 10-04-2019 Basic metabolic pane l calcium total Cory Alvarez Work Phone: Start: 10-04-2019 Blood count hemoglobin Cory Alvarez Work Phone: Start: 10-04-2019 Lactate dehydrogenase ldh Cory Alvarez Work Phone: Start: 10-04-2019 Radiologic exam abdo men 1 view Cory Alvarez Work Phone: Start: 10-04-2019 ADD ON LAB TEST Cory Forrestert Work Phone: Start: 10-04-2019 Calcium ionized Cory Alvarez Work Phone: Start: 10-04-2019 Radiologic exam ches t single view Cory [employer]raz[employer] Work Phone: Start: 10-04-2019 Assay of magnesium Jord barbie Alvarez Work Phone: Start: 10-04-2019 Assay of phosphorus inorganic Cory Alvarez Work Phone: Start: 10-04-2019 Blood count hemoglobin Cory Alvarez Work Phone: Start: 10-04-2019 Comprehensive metabo lic panel Cory Alvarez Work Phone: Start: 10-04-2019 Prothrombin time Cory Erazohart Work Phone: Start: 10-03-2019 Basic metabolic pane l calcium total Cory Alvarez Work Phone: Start: 10-03-2019 Blood count complete auto&auto difrntl wbc Cory Erazohart Work Phone: Start: 10-03-2019 Us abdominal real ti me w/image limited Cory Alvarez Work Phone: Start: 10-03-2019 Basic metabolic pane l calcium total Cory Alvarez Work Phone: Start: 10-03-2019 Blood count hemoglobin Cory Erazohart Work Phone: Start: 10-03-2019 Radiologic exam abdo men 1 view Bipin Stephenson Work Phone: Start: 10-03-2019 Urnls dip stick/tabl et rgnt auto w/o microscopy Cory Erazohart Work Phone: Start: 10-03-2019 Radiologic exam abdo men 1 view Edouard Kenney Work Phone: Start: 10-03-2019 Iadna respiratry pro be & rev trnscr 12-25 target Cory Erazoh[employer] Work Phone: Start: 10-03-2019 Blood count hemoglobin Cory Alvarez Work Phone: Start: 10-03-2019 Culture bacterial quanttative colony count urine [employer] Work Phone: Start: 10-03-2019 Iaad ia mult step me thod nos each organism [employer] Work Phone: Start: 10-03-2019 STREP PNEUMONIAE ANTIGEN [place] Phone: Start: 10-03-2019 Transfuse erythrocyt es [Volume] [employer] Work Phone: Start: 10-03-2019 End: 10-03-2019 ADD ON LAB TEST [facility] Work Phone: Start: 10-03-2019 Assay of lipase [employer] Work Phone: Start: 10-03-2019 Assay of magnesium Jord barbie [employer] Work Phone: Start: 10-03-2019 Assay of phosphorus inorganic [place] Phone: Start: 10-03-2019 Comprehensive metabo lic panel [employer] Work Phone: Start: 10-03-2019 Culture bacterial bl ood aerobic w/id isolates [employer] Work Phone: Start: 10-03-2019 Fibrinogen activity Rolan malena [employer] Work Phone: Start: 10-03-2019 Ketone bodies serum quantitative [employer] Work Phone: Start: 10-03-2019 Procalcitonin (pct) Rolan [employer] Work Phone: Start: 10-03-2019 Prothrombin time [facility] Work Phone: Start: 10-03-2019 CULTURE, BLOOD 1 [employer] [facility] Work Phone: Start: 10-03-2019 RESPIRATORY CARE DUSTY LUATION ONLY [employer] [facility] Work Phone: Start: 10-03-2019 CT Abdomen and Pelvi s W contrast IV [employer] [facility] Work Phone: Start: 10-03-2019 Assay of lactate Kristi K Paradise Work Phone: Start: 10-03-2019 Assay of lipase Kristi K Paradise Work Phone: Start: 10-03-2019 Hepatic function panel Kristi K Paradise Work Phone: Start: 10-03-2019 Procalcitonin (pct) Mirela nn K Paradise Work Phone: Start: 10-03-2019 Prothrombin time Kristi K Paradise Work Phone: Start: 10-03-2019 Assay of magnesium Rashel Mackenzie Work Phone: Start: 10-03-2019 Basic metabolic pane l calcium total Yehuda Mackenzie Work Phone: Start: 10-03-2019 Blood count complete automated Yehuda Mackenzie Work Phone: Start: 10-03-2019 Blood typing serologic abo Yehuda Mackenzie Work Phone: Plan of Treatment Date Care Activity Detail Author Start: 11-19-2019 End: 11-19-2019 Virtual Visit 11/19/2019 Virtual Visit Pulmonology Serb, Jennie Gray, [employer] MANAGER - ADULT EDUCATOR [address] [id number] [facility] Start: 10-23-2019 Influenza vaccination Flu vaccine (# 1) [place], [place] Start: 10-09-2019 Pneumococcal 65+ yea rs Vaccine (1 of 1 - PPSV23) Pneumococcal 65+ years Vaccine (1 of 1 - PPSV23) [place] Start: 10-04-2019 Annual Wellness Visi t (AWV) Annual Wellness Visit (AWV) [place], [place] Start: 2004 Screening for malign ant neoplasm of breast Breast cancer screen [place], [place] Start: 2004 Screening for malign ant neoplasm of colon Colon cancer screen colonoscopy [place], [place] Start: 2004 Shingles Vaccine (1 of 2) Shingles V accine (1 of 2) [place], [place] Start: 1973 DTaP/Tdap/Td vaccine (1 - Tdap) DTaP/Tdap/Td vaccine (1 - Tdap) [place] Acapella Acapella Respira tory Care Routine Daily until discontinued starting 10/18/2019 [place] Comment on above: Daily until disconti nued starting 10/18/2019 End: 10-10-2019 AFB Stain AFB Stain Microbiology Routine Once for 1 Occurrences starting 10/10/2019 until 10/10/2019 [place] Comment on above: Once for 1 Occurrenc es starting 10/10/2019 until 10/10/2019 AFB Stain AFB Stain Microb iology Routine 10/10/2019 1:14 PM EDT [place] End: 10-20-2019 Basic metabolic 2000 panel Basic Metabolic Panel Lab Routine Every 12 hours (Lab) for 7 Days starting 10/14/2019 until 10/20/2019, 8 completed [place] Comment on above: Every 12 hours (Lab) for 7 Days starting 10/14/2019 until 10/20/2019, 8 completed Basic metabolic 2000 panel [place] End: 11-09-2019 Calcium, Ionized Calcium, Ionized Lab Routine Daily for 28 Occurrences starting 10/13/2019 until 11/09/2019, 7 completed [place] Comment on above: Daily for 28 Occurre nces starting 10/13/2019 until 11/09/2019, 7 completed CBC CBC Lab Routine Daily until discontinued starting 10/12/2019, 9 completed [place] Comment on above: Daily until disconti nued starting 10/12/2019, 9 completed Comprehensive metabo lic 2000 panel [place] Culture, Acid Fast Bacillius [place] Culture, Fungus [place], [place] End: 10-15-2019 HbA1c (Bld) [Mass fraction] Hemoglobin A1c Lab Routine One Time for 1 Occurrences starting 10/15/2019 until 10/15/2019 [place] Comment on above: One Time for 1 Occur rences starting 10/15/2019 until 10/15/2019 HbA1c (Bld) [Mass fraction] Hemoglobin A1c Lab Routine 10/16/2019 2:37 AM EDT [place] Hepatic Function Panel [place] Comment on above: Daily until disconti nued starting 10/12/2019, 4 completed High Frequency Chest Wall Oscillation (HFCWO) High Frequency Chest Wall Oscillation (HFCWO) Respiratory Care Routine TID until discontinued starting 10/11/2019 [place] Comment on above: TID until discontinu ed starting 10/11/2019 End: 10-20-2019 Home O2 eval (desaturation screen) Home O2 eval (desaturation screen) Respiratory Care Routine One Time for 1 Occurrences starting 10/20/2019 until 10/20/2019 [place] Comment on above: One Time for 1 Occur rences starting 10/20/2019 until 10/20/2019 Ionized Calcium Ionized Calcium Lab Routine 10/04/2019 4:46 AM EDT [place] End: 10-10-2019 LDH [Catalytic activity/Vol] Lactate Dehydrogenase Lab Routine One Time for 1 Occurrences starting 10/10/2019 until 10/10/2019 [place] Comment on above: One Time for 1 Occur rences starting 10/10/2019 until 10/10/2019 LDH [Catalytic activity/Vol] Lactate Dehydrogenase Lab Routine 10/11/2019 1:04 AM EDT [place] End: 10-20-2019 Magnesium [Mass/Vol] Magnesium Lab Routine Every 12 hours (Lab) for 7 Days starting 10/14/2019 until 10/20/2019, 8 completed [place] Comment on above: Every 12 hours (Lab) for 7 Days starting 10/14/2019 until 10/20/2019, 8 completed Magnesium [Mass/Vol] [facility] [place] Nebulizer therapy [place] Comment on above: 0600, 1000, 1400, 18 00, 2200 until discontinued starting 10/03/2019 As Needed until disc ontinued starting 10/10/2019 Oxygen therapy [[facility] [employer] Data Set] Initiate Oxygen Therapy Protocol Respiratory Care Routine Daily until discontinued starting 10/03/2019 [place] Comment on above: Daily until disconti nued starting 10/03/2019 PEP/Flutter PEP/Flutter Resp iratory Care Routine Daily until discontinued starting 10/10/2019 [place] Comment on above: Daily until disconti nued starting 10/10/2019 End: 10-20-2019 Phosphate [Mass/Vol] Phosphorus Lab Routine Every 12 hours (Lab) for 7 Days starting 10/14/2019 until 10/20/2019, 8 completed [facility] [place] Comment on above: Every 12 hours (Lab) for 7 Days starting 10/14/2019 until 10/20/2019, 8 completed Phosphate [Mass/Vol] [facility] ID Comment on above: 4X Daily (AC & HS) u ntil discontinued starting 10/16/2019 As Needed until disc ontinued starting 10/15/2019 End: 10-10-2019 Protein [Mass/Vol] Protein, Total Lab Routine One Time for 1 Occurrences starting 10/10/2019 until 10/10/2019 [facility] [place] Comment on above: One Time for 1 Occur rences starting 10/10/2019 until 10/10/2019 Protein [Mass/Vol] Protein, Tota l Lab Routine 10/11/2019 1:04 AM EDT [facility] ID Protime-INR Protime-INR Lab Routine Daily until discontinued starting 10/12/2019, 9 completed [place] Comment on above: Daily until disconti nued starting 10/12/2019, 9 completed Transfuse erythrocyt es [Vol] Transfuse RBC Nursing Transfusion Routine 10/03/2019 4:51 AM EDT [facility] ID Immunizations Immunization Date Immunization Notes Care Provider Fa felicitaty 05-22-2020 Covid (Pfizer) [facility] 05-01-2020 Covid (Pfizer) [facility] Payers Date Payer Category Payer Self-pay [id number] 2019 Medicare [id number] Medicare [id number] Unknown [id number] Unknown [id number] Unknown [id number] [id number] [id number] Unknown [id number] Unknown [id number] [id number] Unknown [id number] [id number] Unknown [id number] [id number] Social History Date Type Detail Facility Start: 10-12-2019 Tobacco smoking stat [facility] Current every day smoker [place], [place] History of tobacco use Cigarette Smoker [place] Start: 10-12-2019 Cigarettes smoked current (pack per day) - Reported [place] Start: 10-12-2019 Tobacco use and exposure Never used [place] Start: 10-12-2019 Alcohol intake Current drinke r of alcohol (finding) [place] Start: 10-03-2019 History SDOH Alcohol Frequency 5 [place] Start: 10-03-2019 History SDOH Alcohol Std Drinks 2 [place] Start: 10-03-2019 Alcohol Comment daily [place], [place] Sex Assigned At Not on file [place] Exposure to SARS-CoV -2 (event) Not sure [place] Start: 11-07-2019 End: 11-07-2019 Tobacco smoking status NHIS Unknown if ever smoked [facility] Start: 11-01-2019 Sober [facility] Start: 11-01-2019 None [facility] Start: 11-01-2019 Mcc [facility] Start: 10-21-2019 Cigarettes [facility] Start: 1955 Sex Assigned At Female [facility] Start: 11-07-2019 Tobacco smoking stat us NHIS Ex-smoker (finding) [facility] Radiology Diagnostic study note 08-27-2024 Note Date & Type Note Facility 08-27-2024 Radiology Diagnostic study note [facility] Imaging Services [address] [place] [address] Chest PA and Lateral MR#: [id number] Acct: [id number] Name: DORY BASURTO Rep #: [id number] : [id number] F 68 From: Nanci Farooq MD PCP: Dr. Lorraine Stanley DO Status: REG CLI Study:Chest PA and Lateral Date of Exam: 08/27/24 Exam# [id number] Ordering Dr: Ra sarah Jang NP-Renetta PROCEDURE: CHEST PA AND LATERAL 08/27/2024 REASON FOR EXAM: RULE OUT PNEUMONIA, SHORTNESS OF BREATH TECHNIQUE: CHEST PA AND LATERAL COMPARISON: CT from 12/02/2023 FINDINGS: No focal consolidation. No pleural effusion or pneumothorax. Cardiac silhouette is within normal limits. Stable severe compression deformity of T6 vertebral body. No new acute fractures. RAD/Chest PA and Lateral IMPRESSION: No focal consolidation. Reading Location: [id number] CC: VENEER JOINTER OFFBEARER-Renetta Jang; Dr. Lorraine Stanley DO ~ Marine Services Technician: Signed [facility] Radiology Diagnostic study note 07-01-2024 Note Date & Type Note Facility 07-01-2024 Radiology Diagnostic study note [facility] Imaging Services [address] [place], [place] [id number] Thoracic Spine 3 Views MR#: [id number] Acct: [id number] Name: DORY BASURTO Rep #: [id number] : 1955 F 68 From: Tyesha Tran MD PCP: Dr. Lorraine Stanley DO Status: REG CLI Study:Thoracic Spine 3 Views Date of Exam: 06/29/24 Exam# [id number] Ordering Dr: Erica Stanley sa, DO PROCEDURE: THORACIC SPINE 3 VIEWS 06/29/2024 REASON FOR EXAM: THORACIC BACK PAIN TECHNIQUE: 3 views of the thoracic spine COMPARISON: None. FINDINGS: Mild osteopenia. Reverse S shaped scoliosis. Severe chronic osteoporotic compression fracture of T5 vertebral body. Secondary increased dorsal kyphosis. There are diffuse spondylotic changes. Findings are demonstrated to by diffuse disc space narrowing, osteophyte formation and degenerative endplate sclerosis. There is diffuse facet joint arthropathy with secondary bilateral neural foramina narrowing. No dislocation is seen. No aggressive lytic or blastic bony lesion is noted. RAD/Thoracic Spine 3 Views IMPRESSION: Mild osteopenia. Reverse S shaped scoliosis. Severe chronic osteoporotic compression fracture of T5 vertebral body. Secondary increased dorsal kyphosis. Reading Location[facility] CC: Dr. Lorraine Stanley, DO ~ Marine Services Technician: Signed [facility] Evaluation note Note Date & Type Note Facility Evaluation note No assessment information availa [facility] Work Phone: Reason for referral (narrative) Note Date & Type Note Facility Reason for referral (narrative) No reason for referral information available [facility] Work Phone: Hospital Course * Keenan Gutierrez MD - 10/20/2019 11:16 AM EDT Internal Medicine Discharge Summary Patient ID: Dory Basurto Patient's PCP: No primary care provider on file. Admit Date: 10/03/2019 Discharge Date: 10/20/2019 Visit Status: Admission Admitting Physician: Yehuda Mackenzie MD Discharge Physician: Keenan Gutierrez MD Active Hospital Problems Diagnosis Date Noted Ileus (HCC) [K56.7] COPD exacerbation (HCC) [J44.1] Bilateral pleural effusion [J90] Leucocytosis [D72.829] Colitis [K52.9] LORENZO (acute kidney injury) (HCC) [N17.9] Severe protein-calorie malnutrition (HCC) [E43] Agitation [R45.1] Alcohol abuse [F10.10] Debility [R53.81] Self neglect [R46.89] Palliative care encounter [Z51.5] Goals of care, counseling/discussion [Z71.89] GI bleed [K92.2] 10/03/2019 Sepsis (HCC) [A41.9] 10/03/2019 Acute respiratory failure with hypoxia ([facility]) [J96.01] 10/03/2019 COPD (chronic obstructive pulmonary disease) ([facility]) [J44.9] 10/03/2019 Tobacco abuse [Z72.0] 10/03/2019 Chronic alcohol use [Z72.89] 10/03/2019 Acute midline thoracic back pain [M54.6] 10/03/2019 Elevated serum creatinine [R79.89] 10/03/2019 Shock (HCC) [R57.9] Diagnosis Date COPD (chronic obstructive pulmonary disease) ([facility]) Code Status: Full Code Hospital Course: The patient is a 64 yo female who presented from home with abdominal pain and rectal bleed, sob and back pain. Acute respiratory failure-multifactorial Bilateral pleural effusion Septic /hypovolemic shock-resolved pneumonia UTI COPD AE Pulmonary edema Ileus Severe malnutrition MAT GI bleed Hyperglycemia 2/2 steroid Chronic alcohol use Colitis -suspect infectious She was treated in ICU with NIV, transferred out to medical floor with NC O2 s/p thoracentesis 900 ml from each side She does not qualify for home O2, continue taper prednisone She Completed abx, finished diurese s/p EGD 10/04 revealed esophagitis, linear ulcerative area in stomach clipped and injected with epi,continue protonix BID, advised to quit alcohol. follow with GI OP S/p blood transfusion, Hg improved She is tolerating diet and urinate well after NG and jensen discontinued Improved, stable and discharged She is adamant to go home despite PT recommends SNF. FFW provided Consult(s): IP CONSULT TO GI IP CONSULT TO CRITICAL CARE IP CONSULT TO SOCIAL WORK IP CONSULT TO DIETITIAN IP CONSULT TO GENERAL SURGERY IP CONSULT TO INFECTIOUS DISEASES IP CONSULT TO PULMONOLOGY IP CONSULT TO CRITICAL CARE IP CONSULT TO DIETITIAN IP CONSULT TO PALLIATIVE CARE IP CONSULT TO PALLIATIVE CARE IP CONSULT TO DIETITIAN IP CONSULT TO PSYCHIATRY IP CONSULT TO PAIN MANAGEMENT IMAGINGS: XR CHEST PORTABLE Final Result XR ABDOMEN (KUB) (SINGLE AP VIEW) Final Result XR CHEST PORTABLE Final Result XR ABDOMEN (KUB) (SINGLE AP VIEW) Final Result XR CHEST PORTABLE Final Result XR ABDOMEN (KUB) (SINGLE AP VIEW) Final Result XR ABDOMEN (KUB) (SINGLE AP VIEW) Final Result US GUIDE THORACENTESIS Final Result XR CHEST PORTABLE Final Result US GUIDE THORACENTESIS Final Result XR ABDOMEN (KUB) (SINGLE AP VIEW) Final Result CT CHEST WO CONTRAST Final Result XR CHEST PORTABLE Final Result XR ABDOMEN (KUB) (SINGLE AP VIEW) Final Result XR CHEST PORTABLE Final Result CT Abdomen Pelvis W Contrast Final Result XR ABDOMEN (KUB) (SINGLE AP VIEW) Final Result XR ABDOMEN (KUB) (SINGLE AP VIEW) Final Result XR CHEST PORTABLE Final Result XR CHEST PORTABLE Final Result XR ABDOMEN (KUB) (SINGLE AP VIEW) Final Result XR CHEST PORTABLE Final Result XR ABDOMEN (KUB) (SINGLE AP VIEW) Final Result XR ABDOMEN (KUB) (SINGLE AP VIEW) Final Result XR CHEST PORTABLE Final Result US ABDOMEN LIMITED Specify organ? GALLBLADDER, LIVER Final Result XR ABDOMEN (KUB) (SINGLE AP VIEW) Final Result XR ABDOMEN (KUB) (SINGLE AP VIEW) Final Result CT Abdomen Pelvis W Contrast Final Result Discharged Condition: Stable Disposition: Home PHYSICAL EXAM: Vitals: BP 129/82 Pulse 103 Temp 97.1 F (36.2 C) (Temporal) Resp 20 Ht 5' 7 (1.702 m) Wt 108 lb 12.8 oz (49.4 kg) SpO2 94% BMI 17.04 kg/m Temp (24hrs), Av.3 F (36.3 C), Min:96.8 F (36 C), Max:98.1 F (36.7 C) Patient seen and examined, I was wearing N95 mask throughout the patient encounter The physical examination in the discharge summary is in conjunction with any previous daily progress. General appearance: No apparent distress Respiratory: Normal respiratory effort. bilaterally without Rales/Wheezes/Rhonchi. Cardiovascular: Regular rate and rhythm, normal S1/S2 Abdomen: Soft, non-tender, non-distended, normal bowel sounds. Extremity: no LE edema bilaterally. Discharge Diet: Dietary Nutrition Supplements: Low Calorie High Protein Supplement DIET GENERAL; Dietary Nutrition Supplements: Frozen Oral Supplement Discharge Medications: Dory Basurto Home Medication Instructions [facility]:[id number] Printed on:10/20/19 1856 Medication Information folic acid (FOLVITE) 1 MG tablet Take 1 tablet by mouth daily pantoprazole (PROTONIX) 40 MG tablet Take 1 tablet by mouth 2 times daily (before meals) predniSONE (DELTASONE) 10 MG tablet Take 1 tablet by mouth daily for 3 days vitamin B-1 100 MG tablet Take 1 tablet by mouth daily Follow Up: PCP Schedule an appointment as soon as possible for a visit post hospital follow up in 2 weeks INSTRUCTIONS TO MA/SW: Please call patient on day after discharge (must document patient contacted within 2 business days of discharge). FOLLOW UP QUESTIONS FOR MA/SW: 1. Did you get medications filled and taking them as instructed from discharge? 2. Are you following your discharge instructions from your hospital stay? 3. Please confirm patient is scheduled for a follow up appointment within the above time frame. COMPLEXITY OF FOLLOW UP: [] Moderate Complexity: follow up within 7-14 calendar days (15710) [] Severe Complexity: follow up within 7 calendar days (14130) Time Spent on discharge is greater than 35 mins in patient examination, evaluation, counseling as well as medication reconciliation, prescriptions for required medications, discharge plan and follow up. Electronically signed by Keenan Gutierrez MD Thank you Dr. Beard primary care provider on file. for the opportunity to be involved in this patient's care. documented in this encounter Discharge Instructions * Discharge Instr - PENG* Jessica Hall RN - 10/20/2019 12:54 PM EDT Continuity of Care Form Patient Name: Dory Basurto : 1955 Admit date: 10/03/2019 Discharge date: Code Status Order: Full Code Advance Directives: Advance Care Flowsheet Documentation Date/Time Healthcare Directive Type of Healthcare Directive Copy in Chart Healthcare Agent Appointed Healthcare Agent's Name Healthcare Agent's Phone Number 10/03/19 0234 No, patient does not have an advance directive for healthcare treatment -- -- -- -- -- Admitting Physician: Yehuda Mackenzie MD PCP: No primary care provider on file. Discharging Nurse: Discharging Hospital Unit/Room#: 1539/1539A Discharging Unit Phone Number: Emergency Contact: Extended Emergency Contact Information Primary Emergency Contact: FRAN ALEX Relation: Other Preferred language: Moldovan Parking Attendant needed? No Secondary Emergency Contact: Alannah Alannah Relation: Brother/Sister Past Surgical History: Past Surgical History: Procedure Laterality Date EYE SURGERY Immunization History: There is no immunization history on file for this patient. Active Problems: Patient Active Problem List Diagnosis Code GI bleed K92.2 Sepsis ([facility]) A41.9 Acute respiratory failure with hypoxia ([facility]) J96.01 COPD (chronic obstructive pulmonary disease) ([facility]) J44.9 Tobacco abuse Z72.0 Chronic alcohol use Z72.89 Acute midline thoracic back pain M54.6 Elevated serum creatinine R79.89 Shock ([facility]) R57.9 Leucocytosis D72.829 Colitis K52.9 LORENZO (acute kidney injury) ([facility]) N17.9 Severe protein-calorie malnutrition ([facility]) E43 Agitation R45.1 Alcohol abuse F10.10 Debility R53.81 Self neglect R46.89 Palliative care encounter Z51.5 Goals of care, counseling/discussion Z71.89 COPD exacerbation ([facility]) J44.1 Bilateral pleural effusion J90 Ileus ([facility]) K56.7 Isolation/Infection: Isolation No Isolation Patient Infection Status Infection Onset Added Last Indicated Last Indicated By Review Planned Expiration Resolved Resolved By None active Resolved COVID-19 Rule Out 10/10/19 10/10/19 10/10/19 COVID-19 (Ordered) 10/11/19 Avis Lazaro RN 10/10/2019 Not detected Other 10/08/19 10/08/19 Avis Lazaro RN 10/12/19 Nelda Lewis RN 2019 GI panel pending; maintain precautions until this C difficile test and GI panel are negative or cancelled. C-diff Rule Out 10/08/19 10/08/19 10/11/19 C. difficile toxin Molecular (Ordered) 10/12/19 Nelda Lewis RN Other 10/04/19 10/04/19 Pastora Wellington RN 10/06/19 Avis Lazaro RN 10/03/19 - GI PCR Panel ordered - Maintain C diff Contact Precautions until this test is negative orGI PCR Panel is cancelled. (Note: GI panel does not include C diff testing). 10/05/2019 GI panel and C. Diff negative C-diff Rule Out 10/03/19 10/03/19 10/05/19 C. difficile toxin Molecular (Ordered) 10/05/19 PatriciaJ. Amish RN 10/03/2019 GI panel & C diff PCR pending; Maintain precautions until this C difficile test and GI panel are negative or cancelled 10/05/19 - Order timed out Nurse Assessment: Last Vital Signs: BP 129/82 Pulse 103 Temp 97.1 F (36.2 C) (Temporal) Resp 18 Ht 5' 7 (1.702 m) Wt 108 lb 12.8 oz (49.4 kg) SpO2 95% BMI 17.04 kg/m Last documented pain score (0-10 scale): Pain Level: 10 Last Weight: Wt Readings from Last 1 Encounters: 10/20/19 108 lb 12.8 oz (49.4 kg) Mental Status: {IP PT MENTAL STATUS:} IV Access: { PENG IV ACCESS:529780195} Nursing Mobility/ADLs: Walking {CHP DME ADLs:755348389} Transfer {P DME ADLs:053223684} Bathing {P DME ADLs:883434311} Dressing {P DME ADLs:783045588} Toileting {P DME ADLs:858156772} Feeding {P DME ADLs:439514463} Box Bender {P DME ADLs:848214967} Med Delivery { PENG MED Delivery:857222057} Wound Care Documentation and Therapy: Wound 10/10/19 Coccyx Upper;Left (Active) Wound Pressure Stage 2 10/18/19 1947 Dressing Status Other (Comment) 10/16/19 190 Dressing/Treatment Open to air;Pharmaceutical agent (see MAR) 10/20/19 08 Wound Cleansed Rinsed/Irrigated with saline 10/16/192129 Wound Length (cm) 0.5 cm 10/15/191999 Wound Width (cm) 0.75 cm 10/15/191999 Wound Depth (cm) 0 cm 10/15/191999 Wound Surface Area (cm^2) 0.38 cm^2 10/15/191999 Change in Wound Size % (l*w) 0 10/15/191999 Wound Volume (cm^3) 0 cm^3 10/15/191999 Wound Assessment Dry;Clean;[place] 10/20/19 0821 Drainage Amount None 10/16/19 1900 Odor None 10/16/19 1900 Margins Defined edges 10/16/19 0400 Deya-wound Assessment Blanchable erythema;[place] 10/20/19820 Culture Taken No 10/14/191999 Number of days: 9 Wound 10/10/19 Coccyx Upper;Left (Active) Wound Deep tissue/Injury 10/18/191946 Dressing Status Other (Comment) 10/16/191899 Dressing/Treatment Moisture barrier;Open to air 10/20/19820 Wound Length (cm) 0.5 cm 10/15/191999 Wound Width (cm) 0.75 cm 10/15/191999 Wound Depth (cm) 0 cm 10/15/191999 Wound Surface Area (cm^2) 0.38 cm^2 10/15/191999 Change in Wound Size % (l*w) 0 10/15/191999 Wound Volume (cm^3) 0 cm^3 10/15/191999 Wound Assessment [place];Red 10/20/19820 Drainage Amount None 10/16/19 0400 Deya-wound Assessment Blanchable erythema 10/20/19 0821 Number of days: 9 Elimination: Continence: Bowel: {YES / NO:} Bladder: {YES / NO:} Urinary Catheter: {Urinary Catheter:942946433} Colostomy/Ileostomy/Ileal Conduit: {YES / NO:} Date of Last BM: Intake/Output Summary (Last 24 hours) at 10/20/2019 1254 Last data filed at 10/20/2019 0441 Gross per 24 hour Intake 1050 ml Output 200 ml Net 850 ml I/O last 3 completed shifts: In: 1250 [P.O.:1250] Out: 200 [Urine:200] Safety Concerns: { PENG Safety Concerns:756188180} Impairments/Disabilities: { PENG Impairments/Disabilities:917315141} Nutrition Therapy: Current Nutrition Therapy: { PENG Diet List:493376766} Routes of Feeding: {CHP DME Other Feedings:481695651} Liquids: {Senior Director Creative Services liquid thickness:91850} Daily Fluid Restriction: {CHP DME Yes amt example:335229709} Last Modified Barium Swallow with Video (Video Swallowing Test): {Done Not Done Date:} Treatments at the Time of Hospital Discharge: Respiratory Treatments: Oxygen Therapy: {Therapy; copd oxygen:03693} Ventilator: {[facility] Vent List:483914883} Rehab Therapies: {THERAPEUTIC INTERVENTION:9689437550} Weight Bearing Status/Restrictions: { CC Weight Bearin} Other Medical Equipment (for information only, NOT a DME order): {EQUIPMENT:253599716} Other Treatments: Patient's personal belongings (please select all that are sent with patient): {[facility] DME Belongings:294790211} RN SIGNATURE: {Esignature:250797368} CASE MANAGEMENT/SOCIAL WORK SECTION Inpatient Status Date: Readmission Risk Assessment Score: Readmission Risk Risk of Unplanned Readmission: 22 Discharging to Facility/ Agency Name: Address: Phone: Fax: Dialysis Facility (if applicable) Name: Address: Dialysis Schedule: Phone: Fax: Toll Booth Operator/Lawnmower Repair Mechanic signature: {Esignature:633009784} PHYSICIAN SECTION Prognosis: {Prognosis:9250353634} Condition at Discharge: { Patient Condition:891442223} Rehab Potential (if transferring to Rehab): {Prognosis:2497124015} Recommended Labs or Other Treatments After Discharge: Physician Certification: I certify the above information and transfer of Dory Basurto is necessary for the continuing treatment of the diagnosis listed and that she requires {Admit to AppropriateLevel of Care:40008} for {GREATER/LESS:482848932} 30 days. Update Admission H&P: {CHP DME Changes in HandP:367603827} PHYSICIAN SIGNATURE: {Esignature:616364451} documented in this encounter History of Present Illness * Arthur Turk, COPIER TECHNICIAN - 10/20/2019 12:55 PM EDT [facility] Department Progress Note SpO2 at rest on RA = 92 SpO2 with exertion on RA = 94 Patient not able to ambulate at this time. Patient tried to get up several times and could not; herSpO2 was 93%. Patient then did arm exercises for 2 min and SpO2 was 94%. RN aware that patient unable to getup on her own. Qualify for home O2 Y/N = N Patient mobile at home Y/N = Patient stated she was. * Gwen Hills, DOCUMENTATION SPECIALIST - 10/20/2019 11:53 AM EDT Physical Therapy Attempted PT. Pt politely declined, states she is going home today and just needs a walker. RN had script for walker, retrieved walker from inventory closet, adjusted height and issued to pt. Gwen Hills, SARANYA * Yaneth Cronin MD - 10/19/2019 4:54 PM EDT Progress Note [facility] Patient - Dory Basurto, Age - 64 y.o. - 1955 Room Number - 1539/1539A [facility] [id number] [id number] Date of Admission - 10/03/2019 2:19 AM ASSESSMENT 1. Resolved Hypovolemic vs Septic Shock 2. Bilateral multifocal pulmonary infiltrates: pneumonia vs edema 3. Bilateral pleural effusions s/p thoracentesis 10/10, culture negative. 4. Colitis suspect infectious 5. UGIB secondary to gastric ulcer s/p EGD with clips 10/04 6. Urinary Tract Infection- culture negative 7. Leukocytosis - improving 8. COPD on Home O2 9. Diarrhea, stool studies negative. May be antibiotic related from the Zosyn versus less likely due to C. difficile as a test was -4 days ago. Repeat testing negative 10. Malnutrition/cachexia PLAN Monitor off antibiotics Wean oxygen as toelrated SUBJECTIVE: Feels okay. Denies sob or cough. No diarrhea. Improving WBC OBJECTIVE VITALS height is 5' 7 (1.702 m) and weight is 105 lb (47.6 kg). Her temporal temperature is 97.5 F (36.4 C). Her blood pressure is 125/79 and her pulse is 106. Her respiration is 22 and oxygen saturation is 97%. Temp (24hrs), Av.7 F (36.5 C), Min:97 F (36.1 C), Max:98.6 F (37 C) General Appearance: Alert, NAD HEENT: wnl Neck: Supple Lungs: diminished bilateral unlabored on nasal canula Cardiovascular: RRR Abdomen: Soft NT, ND, BS+ + NGT in place : no CVAT. + jensen in place Neurologic: alert and oriented, no focal deficits Skin: No rashes Extremities: No edema, No joint inflammation Lines: sites clean MEDICATIONS: predniSONE 20 mg Oral Daily Followed by [START ON 10/21/2019] predniSONE 15 mg Oral Daily Followed by [START ON 10/24/2019] predniSONE 10 mg Oral Daily Followed by [START ON 10/27/2019] predniSONE 5 mg Oral Daily pantoprazole 40 mg Oral BID AC folic acid 1 mg Oral Daily thiamine 100 mg Oral Daily insulin lispro 0-6 Units Subcutaneous TID WC insulin lispro 0-3 Units Subcutaneous Nightly ipratropium-albuterol 1 ampule Inhalation TID polyethylene glycol 17 g Oral Daily QUEtiapine 25 mg Oral Nightly sodium chloride flush 10 mL Intravenous 2 times per day miconazole Topical BID lidocaine 1 patch Transdermal Daily dextrose LABS: CBC: Recent Labs 10/17/1942410/18/19 0526 10/19/19 0351 WBC 14.4* 12.5* 9.6 HGB 10.1* 9.6* 10.2* PLT 693* 750* 825* BMP: Recent Labs 10/17/195 10/18/19 0526 10/19/19 0351 NA 132* 133* 135 K 3.5 3.4* 3.4* CL 100 104 104 CO2 28 24 23 BUN 9 8 6* CREATININE 0.44* 0.40* 0.41* GLUCOSE 134* 85 81 Hepatic: Recent Labs 10/17/1942410/18/19 0526 10/19/19 0351 ALKPHOS 148* 113 121 ALT 21 22 24 AST 36 32 41 PROT 5.5* 5.4* 5.7* BILITOT 0.4 0.3 0.3 LABALBU 2.7* 2.5* 2.8* Lactic Acid: No results for input(s): LACTA in the last 72 hours. MICROBIOLOGY: 10/10 cdiff: negative 10/10 GI pcr: negative 10/10 RVP negative 10/10 pleural cx: ngtd, no afb or fungal 10/09 covid 19 negative 10/05 resp cx: normal carole 10/04 cdiff: negative 10/02 RVP: negative 10/02 legionella/strep ag negative 10/02 urine cx: negative 10/02 blood cx: negative IMAGING: reviewed [facility] 10/19/2019 4:54 PM * Gwen Hills, DOCUMENTATION SPECIALIST - 10/19/2019 12:12 PM EDT Physical Therapy Facility/Department: [facility] Daily Treatment Note NAME: Dory Basurto : 1955 Date of Service: 10/19/2019 Discharge Recommendations: Subacute/Jail Facility, Continue to assess pending progress PT Equipment Recommendations Equipment Needed: Yes Other: if homegoing would recommend a FWW, pt states she can likely get one from her neighbor Assessment Body structures, Functions, Activity limitations: Decreased functional mobility ;Decreased strength;Decreased endurance;Decreased safe awareness;Decreased balance;Decreased posture Assessment: Pt was stand by assist with bed mobility and min assist for gait and transfers. Fatigues easily and displays SOB. Pt attributes it to anxiety and that she needs an Ativan. At this time would recommend facility based PT at discharge but pt is addiment that she is going home tomorrow or tuesday. Pt also states her neighbor likely has a walker she could use. Prognosis: Good;Fair Decision Making: Medium Complexity REQUIRES PT FOLLOW UP: Yes Activity Tolerance Activity Tolerance: Patient limited by endurance;Patient limited by fatigue(anxiety) Patient Diagnosis(es): There were no encounter diagnoses. has a past medical history of COPD (chronic obstructive pulmonary disease) (HCC). has a past surgical history that includes eye surgery. Restrictions Restrictions/Precautions Restrictions/Precautions: Fall Risk Required Braces or Orthoses?: No Subjective General Chart Reviewed: Yes Additional Pertinent Hx: COPD, chronic anemia, chronic EtOH use Response To Previous Treatment: Patient with no complaints from previous session. Family / Caregiver Present: No Subjective Subjective: i havent been out of bed for 5 weeks per pt. Pt on 2L O2 via NC. Agreeable to PT. I have to move or I'll never get out of here Also requests to use the BSC. General Comment Comments: . Pain Screening Patient Currently in Pain: Denies Vital Signs Patient Currently in Pain: Denies Orientation Orientation Orientation Level: Oriented to place;Oriented to person Cognition Cognition Overall Cognitive Status: WFL Objective Bed mobility Supine to Sit: Stand by assistance Scooting: Stand by assistance Comment: HOB up, used railing to assist self Transfers Sit to Stand: Moderate Assistance Stand to sit: Minimal Assistance Comment: Pt adamant about doing as much as she can for herself. stood from EOB, BSC, recliner and visitor chair in hallway Ambulation Ambulation?: Yes More Ambulation?: Yes Ambulation 1 Surface: level tile Device: No Device Other Apparatus: O2 Assistance: Minimal assistance Quality of Gait: flexed posture Distance: 3 ft bed to BSC Comments: furniture walking Ambulation 2 Surface - 2: level tile Device 2: Rolling Walker Other Apparatus 2: O2 Assistance 2: Minimal assistance Quality of Gait 2: flexed posture Gait Deviations: Slow Krista;Decreased step length;Decreased step height Distance: ~50 ft x 2 Comments: seated break between distances, cues for proper deep breathing, pt requesting ativan whenshe gets back to room. RN notified Stairs/Curb Stairs?: No Balance Posture: Fair Sitting - Static: Good Sitting - Dynamic: Good Standing - Static: Fair Standing - Dynamic: Fair;- Comments: Pt was dependent for pericare after using BSC. RN aware of current loose stools. AM-PAC Score AM-PAC Inpatient Mobility Raw Score : 13 (10/19/191213) AM-PAC Inpatient T-Scale Score : 36.74 (10/19/191213) Mobility Inpatient CMS 0-100% Score: 64.91 (10/19/191213) Mobility Inpatient CMS G-Code Modifier : CL (10/19/191213) Goals Short term goals Time Frame for Short term goals: 2 weeks Short term goal 1: Bed mobility CGA, PROGRESSING, try with bed flat no rails Short term goal 2: Transfers min of 1, GOAL MET, PLEASE UPDATE Short term goal 3: Amb, device, 25', min of 1, GOAL MET, PLEASE UPDATE Short term goal 4: Stand 2 minutes, device, dynamic UE activity, supv, PROGRESSING Short term goal 5: Increase antigravity strength to 3+/5 cathy (hip extn, knee extn, Hip ABD) NOT ADDRESSED Patient Goals Patient goals : be able to eat Plan Plan Times per week: 5 Plan weeks: 2 Current Treatment Recommendations: Strengthening, ROM, Balance Training, Functional Mobility Training, Transfer Training, Endurance Training, Gait Training Safety Devices Type of devices: Call light within reach, Gait belt, Left in chair, All fall risk precautions in place Restraints Initially in place: No Therapy Time Individual Concurrent Group Co-treatment Time In 1050 Time Out 1116 Minutes 26 Timed Code Treatment Minutes: 26 Minutes(gait, FA) *This DOCUMENTATION SPECIALIST wore KN95, gloves and safety glasses during whole treatment session.* Gwen Hills PTA * Keenan Gutierrez MD - 10/19/2019 11:37 AM EDT PROGRESS NOTE SUBJECTIVE: Patient seen and examined, I was wearing N95 mask throughout the patient encounter Interval history: On admission Presented with transferred out ICU with jensen and NG tube Overnight event : No New issues: able to urinate after discontinue jensen, able to tolerating diet after stop NG. Loose stool x2 Review of System: No CP No SOB No fever No cough No nausea No constipation No Abdominal Pain No dizziness No headache No focal weakness No dysuria No edema Dietary Nutrition Supplements: Low Calorie High Protein Supplement DIET GENERAL; Dietary Nutrition Supplements: Frozen Oral Supplement VITALS: BP 116/74 Pulse 94 Temp 97.8 F (36.6 C) (Temporal) Resp 18 Ht 5' 7 (1.702 m) Wt 105 lb (47.6 kg) SpO2 99% BMI 16.45 kg/m BLOOD PRESSURE RANGE: Systolic (24hrs), Av , Min:111 , Max:125 ; Diastolic (24hrs), Av, Min:69, Max:78 24HR INTAKE/OUTPUT: Intake/Output Summary (Last 24 hours) at 10/19/2019 1137 Last data filed at 10/18/2019 2248 Gross per 24 hour Intake 760 ml Output 150 ml Net 610 ml PHYSICAL EXAM: General appearance: No apparent distress, appears stated age and cooperative. AOx3 HEENT: Normal cephalic, atraumatic without obvious deformity. PERRL. Extra ocular muscles intact. Conjunctivae/corneas clear. Neck: Supple, No JVD. Trachea midline. No lymphadenopathy. Respiratory: Normal respiratory effort. no Rales. no Wheezes. No Rhonchi. Cardiovascular: Regular rate and rhythm, normal S1/S2. no murmurs, no rubs, no gallops. Abdomen: Soft, non-tender, non-distended, normal bowel sounds. No rebound or guarding. Musculoskeletal: No clubbing, no cyanosis. No LE edema bilaterally. Skin: No rashes. Neurologic: No focal sensory, no motor deficits. Cranial nerves: II-XII intact LABS: Recent Labs 10/17/1942410/18/1952510/19/19 035 WBC 14.4* 12.5* 9.6 HGB 10.1* 9.6* 10.2* HCT 31.5* 30.0* 31.7* MCV 84.0 85.8 86.4 PLT 693* 750* 825* Recent Labs 10/17/1942410/18/1952510/19/19 035 NA 132* 133* 135 K 3.5 3.4* 3.4* CL 100 104 104 CO2 28 24 23 GLUCOSE 134* 85 81 PHOS 3.7 2.7 2.4* MG 1.9 1.7 1.7 BUN 9 8 6* CREATININE 0.44* 0.40* 0.41* Ionized Calcium: Lab Results Component Value Date IONCA 4.50 10/19/2019 Magnesium: Lab Results Component Value Date MG 1.7 10/19/2019 Phosphorus: Lab Results Component Value Date PHOS 2.4 10/19/2019 LIVER PROFILE: Recent Labs 10/17/1942410/18/1952510/19/19 035 AST 36 32 41 ALT 21 22 24 BILITOT 0.4 0.3 0.3 ALKPHOS 148* 113 121 LABALBU 2.7* 2.5* 2.8* PROT 5.5* 5.4* 5.7* PT/INR: Recent Labs 10/17/1942410/18/1952510/19/19 035 PROTIME 10.8 10.6 10.3 INR 1.0 1.0 0.9 CARDIAC ENZYMES: No results for input(s): TROPONINI in the last 72 hours. Procalcitonin: Lab Results Component Value Date PROCAL 0.15 10/11/2019 U/A: Lab Results Component Value Date COLORU Yellow 10/03/2019 WBCUA >100 10/03/2019 RBCUA 51-100 10/03/2019 BACTERIA Few 10/03/2019 LEUKOCYTESUR 500 10/03/2019 UROBILINOGEN Normal 10/03/2019 BILIRUBINUR Negative 10/03/2019 GLUCOSEU Normal 10/03/2019 Urine Culture: No results for input(s): LABURIN in the last 72 hours. Blood Culture: Lab Results Component Value Date BC No growth at 5 days. 10/03/2019 IMAGINGS: XR CHEST PORTABLE Final Result XR ABDOMEN (KUB) (SINGLE AP VIEW) Final Result XR CHEST PORTABLE Final Result XR ABDOMEN (KUB) (SINGLE AP VIEW) Final Result XR CHEST PORTABLE Final Result XR ABDOMEN (KUB) (SINGLE AP VIEW) Final Result XR ABDOMEN (KUB) (SINGLE AP VIEW) Final Result US GUIDE THORACENTESIS Final Result XR CHEST PORTABLE Final Result US GUIDE THORACENTESIS Final Result XR ABDOMEN (KUB) (SINGLE AP VIEW) Final Result CT CHEST WO CONTRAST Final Result XR CHEST PORTABLE Final Result XR ABDOMEN (KUB) (SINGLE AP VIEW) Final Result XR CHEST PORTABLE Final Result CT Abdomen Pelvis W Contrast Final Result XR ABDOMEN (KUB) (SINGLE AP VIEW) Final Result XR ABDOMEN (KUB) (SINGLE AP VIEW) Final Result XR CHEST PORTABLE Final Result XR CHEST PORTABLE Final Result XR ABDOMEN (KUB) (SINGLE AP VIEW) Final Result XR CHEST PORTABLE Final Result XR ABDOMEN (KUB) (SINGLE AP VIEW) Final Result XR ABDOMEN (KUB) (SINGLE AP VIEW) Final Result XR CHEST PORTABLE Final Result US ABDOMEN LIMITED Specify organ? GALLBLADDER, LIVER Final Result XR ABDOMEN (KUB) (SINGLE AP VIEW) Final Result XR ABDOMEN (KUB) (SINGLE AP VIEW) Final Result CT Abdomen Pelvis W Contrast Final Result Scheduled Meds: predniSONE 20 mg Oral Daily Followed by [START ON 10/21/2019] predniSONE 15 mg Oral Daily Followed by [START ON 10/24/2019] predniSONE 10 mg Oral Daily Followed by [START ON 10/27/2019] predniSONE 5 mg Oral Daily pantoprazole 40 mg Oral BID AC folic acid 1 mg Oral Daily thiamine 100 mg Oral Daily insulin lispro 0-6 Units Subcutaneous TID insulin lispro 0-3 Units Subcutaneous Nightly ipratropium-albuterol 1 ampule Inhalation TID polyethylene glycol 17 g Oral Daily QUEtiapine 25 mg Oral Nightly sodium chloride flush 10 mL Intravenous 2 times per day miconazole Topical BID lidocaine 1 patch Transdermal Daily Continuous Infusions: dextrose PRN Meds:HYDROcodone 5 mg - acetaminophen, HYDROcodone 5 mg - acetaminophen, glucose, dextrose, glucagon (rDNA), dextrose, LORazepam, sodium chloride (Inhalant), bisacodyl, sennosides-docusate sodium, metoprolol, acetaminophen OR acetaminophen, promethazine OR ondansetron, albuterol, sodiumchloride flush Dietary Nutrition Supplements: Low Calorie High Protein Supplement DIET GENERAL; Dietary Nutrition Supplements: Frozen Oral Supplement Advance Directive: Full Code ASSESSMENT AND PLAN Acute respiratory failure-multifactorial Bilateral pleural effusion s/p thoracentesis 900 ml from each side Septic /hypovolemic shock-resolved pneumonia UTI COPD AE Pulmonary edema Ileus Severe malnutrition MAT GI bleed s/p EGD 10/04 revealed esophagitis, linear ulcerative area in stomach clipped and injected with epi Hyperglycemia Chronic alcohol use Colitis -suspect infectious [facility]-palliative care team follow, full code dc'ed NT and jensen, was on NIV, now on NC O2, wean as able Switch IV solumedrol and protonix to oral, prednisone taper Wean O2 as able Completed abx switched lasix over to bumex over to acetazolamide Hold miralax due to loose stool x2, continue monitor Follow HH, hold lovenox SS humalog BB PRN for tachycardia Normal Weight (BMI 18.5-24.9) Discharge planning: SNF Following past medical problems has been monitored in hospital Diagnosis Date COPD (chronic obstructive pulmonary disease) (HCC) Keenan Gutierrez MD On 10/19/2019 at 11:37 AM * Daylin Ray, RESEARCH AIDE - 10/19/2019 9:58 AM EDT Speech Language Pathology Facility/Department: [facility] Dysphagia Treatment Note NAME: Dory Colby Basurto : 1955 Patient Diagnosis(es): Patient Active Problem List Diagnosis GI bleed Sepsis (HCC) Acute respiratory failure with hypoxia (HCC) COPD (chronic obstructive pulmonary disease) (HCC) Tobacco abuse Chronic alcohol use Acute midline thoracic back pain Elevated serum creatinine Shock (HCC) Leucocytosis Colitis LORENZO (acute kidney injury) (HCC) Severe protein-calorie malnutrition (HCC) Agitation Alcohol abuse Debility Self neglect Palliative care encounter Goals of care, counseling/discussion COPD exacerbation (HCC) Bilateral pleural effusion Ileus (HCC) Allergies: No Known Allergies Onset Date: 10/03/2019 Oxygen Level: 2L Current Diet Level: Regular diet with thin liquids Compensatory Techniques []Chin tuck []Small bolus []Alternate bites/ sips []No straws []Liquids by teaspoon only []Swallow x 2 with each bolus []Alternate lemon ice between each bolus [x]Position patient upright []Other Pain:no c/o pain S: Pt is alert and cooperative. She did say she was agitated because she hasn't seen therapy to seehow she walks. O: Determine tolerance of current diet now that NG tube is out. A: Pt with no s/s of aspiration or penetration with mixed consistency foods or with large, continuous wide bore straw drinks of thin. Pt indicates she has no problems swallowing. [x] Goal met [] Progressing as expected [] Progressing slower than expected [] Medical status inhibits participation [] Goals not addressed this session [] Goals revised this session [] Unable to show any progress towards functional goals [] Progress towards functional goal is gradual / fair P: Pt appears to have normal swallow function. IF silent aspiration is suspected, recommend a modified barium swallow study. * Yaneth Cronin MD - 10/18/2019 4:00 PM EDT Progress Note [facility] Patient - Dory Basurto, Age - 64 y.o. - 1955 Room Number - 1539/1539A N - [id number] Date of Admission - 10/03/2019 2:19 AM ASSESSMENT 1. Resolved Hypovolemic vs Septic Shock 2. Bilateral multifocal pulmonary infiltrates: pneumonia vs edema 3. Bilateral pleural effusions s/p thoracentesis 10/10, culture negative. 4. Colitis suspect infectious 5. UGIB secondary to gastric ulcer s/p EGD with clips 10/04 6. Urinary Tract Infection- culture negative 7. Leukocytosis - improving 8. COPD on Home O2 9. Diarrhea, stool studies negative. May be antibiotic related from the Zosyn versus less likely due to C. difficile as a test was -4 days ago. Repeat testing negative 10. Malnutrition/cachexia PLAN Monitor off antibiotics Monitor wbc and temps Wean oxygen as toelrated SUBJECTIVE: Feels okay. Denies sob or cough. No diarrhea. Improving WBC OBJECTIVE VITALS height is 5' 7 (1.702 m) and weight is 111 lb 14.4 oz (50.8 kg). Her temporal temperature is 97.7 F (36.5 C). Her blood pressure is 125/70 and her pulse is 105. Her respiration is 18 and oxygen saturation is 100%. Temp (24hrs), Av.4 F (36.3 C), Min:97 F (36.1 C), Max:97.7 F (36.5 C) General Appearance: Alert, NAD HEENT: wnl Neck: Supple Lungs: diminished bilateral unlabored on nasal canula Cardiovascular: RRR Abdomen: Soft NT, ND, BS+ + NGT in place : no CVAT. + jensen in place Neurologic: alert and oriented, no focal deficits Skin: No rashes Extremities: No edema, No joint inflammation Lines: sites clean MEDICATIONS: predniSONE 20 mg Oral Daily Followed by [START ON 10/21/2019] predniSONE 15 mg Oral Daily Followed by [START ON 10/24/2019] predniSONE 10 mg Oral Daily Followed by [START ON 10/27/2019] predniSONE 5 mg Oral Daily pantoprazole 40 mg Oral BID AC folic acid 1 mg Oral Daily thiamine 100 mg Oral Daily insulin lispro 0-6 Units Subcutaneous TID WC insulin lispro 0-3 Units Subcutaneous Nightly ipratropium-albuterol 1 ampule Inhalation TID polyethylene glycol 17 g Oral Daily QUEtiapine 25 mg Oral Nightly sodium chloride flush 10 mL Intravenous 2 times per day miconazole Topical BID lidocaine 1 patch Transdermal Daily dextrose LABS: CBC: Recent Labs 10/16/19 0237 10/17/19 0425 10/18/19 0526 WBC 19.4* 14.4* 12.5* HGB 11.9 10.1* 9.6* PLT 645* 693* 750* BMP: Recent Labs 10/16/19 1537 10/17/19 0425 10/18/19 0526 NA 134* 132* 133* K 4.1 3.5 3.4* CL 97* 100 104 CO2 33* 28 24 BUN 8 9 8 CREATININE 0.46* 0.44* 0.40* GLUCOSE 255* 134* 85 Hepatic: Recent Labs 10/16/19 0237 10/17/19 0425 10/18/19 0526 ALKPHOS 166* 148* 113 ALT 22 21 22 AST 40 36 32 PROT 5.5* 5.5* 5.4* BILITOT 0.5 0.4 0.3 LABALBU 2.6* 2.7* 2.5* Lactic Acid: No results for input(s): LACTA in the last 72 hours. MICROBIOLOGY: 10/10 cdiff: negative 10/10 GI pcr: negative 10/10 RVP negative 10/10 pleural cx: ngtd, no afb or fungal 10/09 covid 19 negative 10/05 resp cx: normal carole 10/04 cdiff: negative 10/02 RVP: negative 10/02 legionella/strep ag negative 10/02 urine cx: negative 10/02 blood cx: negative IMAGING: reviewed Yaneth Cronin MD [facility] 10/18/2019 4:00 PM * Lilibeth Duron, BROKERAGE BRANCH MANAGER - ADULT EDUCATOR - 10/18/2019 3:30 PM EDT PAGING: The Acute Pain Service providers are available by pager. Please reference [employer] and/or [facility] Phonebook for Pain Management Provider FIXED WING AIRCRAFT FLIGHT ENGINEER and direct all questions to the provider listed. 10/18/2019 Referring Physician: Abelino Santo MD Subjective: We have been asked to see this 64 y.o. female for complex pain management secondary to GI bleed andacute respiratory failure with hypoxia. Medical history noted below, significant for chronic ETOH abuse, sepsis, LORENZO, self neglect. Patient presented initially to [facility] ED and was transferred on 10/02 to [facility]. Patient c/o 3-4 weeksof generalized weakness, malaise, melena, and diarrhea. Patient in ICU from 10/02-10/05 for shock, and was intubated. Complex hospital course noted, requiring EGD on 10/04, thoracentesis w/ drainage of 900 cc of serous fluid. Acute hypoxic respiratory failure (COVID test negative) w/ large bilateral pleural effusions, possible aspiration pneumonia, upper GI bleed, ileus (on tube feeds) and atrial tachycardia. Patient transferred to general floor on 10/15, pain consulted for complex pain issues leading to excessive drowsiness. On arrival, patient appears comfortable, resting in bed. Patient tearful, states she is frustrated, wants to be discharged home, and would like to ambulate.States she has had difficulty ambulating for many months however states she feels safe at home. Looking forward to working with PT. States she has a fracture in her back that is healing. Denies imaging, states she has been through enough. States her fracture is healing. Feels pain is controlled with NORCO. Denies nausea/vomiting. Plan for discharge to SNF on 10/21. Due to the current environment of [place] [id number], PPE was worn for the duration of the encounter including but not limited to a N95 in accordance with CDC and hospital guidelines. Pain Severity: moderate Pain Frequency: Constant Pain Location: Back Pain Radiation: nonradiating Pain Quality: aching, throbbing and shooting Adverse effect to opioids: none Sedation score: 1: Awake and alert Timing: Constant Onset: : ChronicPain. Aggravating Factors: Moving Alleviating Factors: Pain medications Last BM was: No BM, + Flatus Social History Tobacco Use Smoking Status Current Every Day Smoker Packs/day: 1.00 Years: 15.00 Pack years: 15.00 Types: Cigarettes Smokeless Tobacco Never Used Social History Substance and Sexual Activity Alcohol Use Yes Alcohol/week: 3.0 - 4.0 standard drinks Types: 3 - 4 Cans of beer per week Frequency: 4 or more times a week Drinks per session: 3 or 4 Comment: daily Social History Substance and Sexual Activity Drug Use Never Smoking: Current ETOH: (Chronic ETOH abuse) 10-15 drinks per day Illicit Drugs: Denies Prescription Drug Abuse: Denies Pain Management: n/a The patient's medical history and physical assessment, medications, allergies, patient's current medical condition, and labs were reviewed as part ofthis consultation. [x] Patient's Medications have been reviewed. [x] Patient's OARRS report (PDMP) have been reviewed. 04/23/20190121-[id number] 5-325 Mg (QTY 42) (7 days) Objective Findings: Height: 5' 7 (170.2 cm) Weight: 111 lb 14.4 oz (50.8 kg) BMI (Calculated): 17.6 Vital signs: Blood pressure 107/72, pulse 100, temperature 97.5 F (36.4 C), temperature source Temporal, resp. rate 18, height 5' 7 (1.702 m), weight 111 lb 14.4 oz (50.8 kg), SpO2 96 %. Lab Results Component Value Date/Time HGB 9.6 (L) 10/18/2019 05:26 AM HCT 30.0 (L) 10/18/2019 05:26 AM PLT 750 (H) 10/18/2019 05:26 AM WBC 12.5 (H) 10/18/2019 05:26 AM PROTIME 10.6 10/18/2019 05:26 AM INR 1.0 10/18/2019 05:26 AM NA 133 (L) 10/18/2019 05:26 AM K 3.4 (L) 10/18/2019 05:26 AM BUN 8 10/18/2019 05:26 AM CREATININE 0.40 (L) 10/18/2019 05:26 AM GLUCOSE 85 10/18/2019 05:26 AM Allergies: Patient has no known allergies. Past Medical History: Diagnosis Date COPD (chronic obstructive pulmonary disease) (HCC) Past Surgical History: Procedure Laterality Date EYE SURGERY History reviewed. No pertinent family history. Patient Active Problem List Diagnosis GI bleed Sepsis (HCC) Acute respiratory failure with hypoxia (HCC) COPD (chronic obstructive pulmonary disease) (HCC) Tobacco abuse Chronic alcohol use Acute midline thoracic back pain Elevated serum creatinine Shock (HCC) Leucocytosis Colitis LORENZO (acute kidney injury) (HCC) Severe protein-calorie malnutrition (HCC) Agitation Alcohol abuse Debility Self neglect Palliative care encounter Goals of care, counseling/discussion COPD exacerbation (HCC) Bilateral pleural effusion Ileus (HCC) Review of Systems Constitutional: Positive for activity change. Respiratory: Negative for shortness of breath. Cardiovascular: Negative for chest pain. Gastrointestinal: Negative for abdominal pain, nausea and vomiting. Musculoskeletal: Positive for back pain and gait problem. Skin: Negative for pallor and rash. Neurological: Positive for weakness. Negative for speech difficulty and numbness. Psychiatric/Behavioral: The patient is not nervous/anxious. Physical Exam Vitals signs and nursing note reviewed. Constitutional: Appearance: She is ill-appearing. HENT: Head: Normocephalic and atraumatic. Eyes: Extraocular Movements: Extraocular movements intact. Pulmonary: Effort: Pulmonary effort is normal. No respiratory distress. Abdominal: Tenderness: There is no abdominal tenderness. Musculoskeletal: Normal range of motion. General: Tenderness (THoracic ) present. No swelling. Skin: General: Skin is warm and dry. Neurological: Mental Status: She is alert and oriented to person, place, and time. Psychiatric: Mood and Affect: Mood normal. APPLICATION DEVELOPER: None Pain Management Adjuvants: NORCO PRN- 2 tablets used 10/15 - 7 tablets used 10/16 Hydromorphone IV PRN (Discontinued)- 0.5 mg used 10/15 Assessment: 1. Acute on chronic midline thoracic back pain- unclear etiology 2. ETOH abuse 3. GI Bleed 4. Self Neglect 5. COPD Pain Management Plan: ? Can continue NORCO 1-2 tablets Q 6 hours PRN for moderate/severe breakthrough pain while workup in progress. Would not recommend prescription for narcotic at discharge, as patient with chronic ETOHabuse. ? Continue Lidoderm patch - can increase to 2 patches ? Patient states she would like to try heating pad for back ? Recommend imaging of thoracic spine- unclear etiology for pain, however patient refusing. States she had imaging completed at [facility]. ? No NSAID d/t GI Bleed ? Recommend PT/OT ? Patient currently receiving opioids for pain management necessitating a bowel regimen. Recommend initiating scheduled Sennakot-S 8.6/50mg, 1 tablet PO BID. Would also recommend Milk of Magnesia 400mg/5ml, administer 30mL by mouth daily PRN. ? Patient can continue NORCO PRN at SNF, would not continue prescription if going home. Recommend follow up outpatient with orthopedics, patient refusing imaging. ? We will sign off at this time, thank you for allowing us to participate in the care of this patient. Plan discussed with patient who appears to understand and agrees. PAGING: The Acute Pain Service providers are available by pager. Please reference [facility] and/or [facility] Phonebook for Pain Management Provider FIXED WING AIRCRAFT FLIGHT ENGINEER and direct all questions to the provider listed. * Matilda Tipton RN - 10/18/2019 3:25 PM EDT Left nostril NG tube and urethral cath removed. Patient tolerated well. * Kylie Lane RD, LD - 10/18/2019 3:13 PM EDT Comprehensive Nutrition Assessment Type and Reason for Visit: Reassess Nutrition Recommendations/Plan: 1. Pt is currently ordered a CHO Controlled Diet, pt asking why do these doctors have me on a dietthat is the last thing I need. Pt with poor appetite, dislike of hospital food, meets the criteriafor severe malnutrition per RD and MD assessment, pt blood glucose is elevated due to steroid administration, HgbA1c was 5.9% on 10/16/19 --> per MNT protocol will liberalize diet to General to allow pt more menu choices to aide in improving nutritional status. 2. Will continue to monitor PO intake for adequacy 3. Pt is receiving Ensure HP once daily with dinner, per nursing and pt report pt likes ice cream and only ate 2 regular ice cream yesterday, per MNT protocol will trial Magic Cup BID with breakfast and lunch and monitor pt tolerance/acceptance, 4oz provides 290 calories, 9gm protein and pt thinks she will like chocolate best. 4. Pt had NG removed this afternoon, she denies swallowing discomfort, RESEARCH AIDE following, will monitor. 5. Will continue to monitor weight changes, labs and overall nutrition status 6. RD will continue to follow up weekly Nutrition Assessment: pt is resting in bed, she is plesant, RN also in room for med pass, RN reports that yesterday pt only wanted 2 regular ice cream and she did not eat anything else, pt is s/p NG removal this afternoon and pt is thrilled about this, reports that she does not have a sore throat and she is ready to try to eat, for dinner pt ordered roasted turkey and sutuffing and gravy, dinner roll with butter, roasted vegetables and she was willing to try a magic cup since she likes ice cream so much, RESEARCH AIDE was following and documented today regular/thin liquids recommendations and MBS if issues arise with swallowing s/p NG removal, pt CBW 111# via bedscale and admit weight was 111#, pt admitted for acute hypoxic respiratory failure- multifactorial 2/2 AE suspected COPD, bilateral pleural effusions, and PNA, hospitalization complicated by septic/hypovolemic shock, MAT, ileus, GIB, and colitis (suspected infectious), she required ICU admission on 10/02 and subsequently intubation 10/04,extubated 10/06 to NIV, s/p right US guided thoracentesis 10/09- 800ml and left US guided thoracentesis 10/10- 900ml- both appear transudative, ID following- now off ABx and monitoring, pt denies questions for RD aside from wondering why do these doctors have me on a diet that is the last thing I need , pt has already been identified to meet criteria for severe malnutrition, MD also documented severe malnutrition Malnutrition Assessment: Malnutrition Status: Severe malnutrition(per previous RD assessment and MD documentation) Nutrition Related Findings: Flash = 16, coccyx stage 2 pressure wound, -I/O, upper and lower dentures, forgetful, active bowel sounds, BM 10/16, BLE non- pitting +1 edema, 1-25% of lunch, NG just removed this afternoon Wounds: None Current Nutrition Therapies: Dietary Nutrition Supplements: Low Calorie High Protein Supplement DIET GENERAL; Dietary Nutrition Supplements: Frozen Oral Supplement Anthropometric Measures: Height: 5' 7 (170.2 cm) Current Body Weight: 111 lb (50.3 kg)(10/17) Admission Body Weight: 115 lb (52.2 kg)(no method 10/02) Usual Body Weight: 117 lb (53.1 kg) Enigma Body Weight: 135 lbs; % Enigma Body Weight 82.2 % BMI: 17.4 BMI Categories: Underweight (BMI less than 18.5) Nutrition Interventions: Food and/or Nutrient Delivery: Modify Current Diet, Modify Oral Nutrition Supplement Nutrition Education/Counseling: (pt declines) Coordination of Nutrition Care: Continued Inpatient Monitoring Goals: PO intake will be >50% at meals/supplements Nutrition Monitoring and Evaluation: Food/Nutrient Intake Outcomes: Supplement Intake, Food and Nutrient Intake Physical Signs/Symptoms Outcomes: Biochemical Data, Chewing or Swallowing, GI Status, Fluid Status or Edema, Weight, Skin, Nutrition Focused Physical Findings Discharge Planning: Continue current diet, Continue Oral Nutrition Supplement Contact: pager x [phone] * Angel Jennie Isaac, BROKERAGE BRANCH MANAGER - ADULT EDUCATOR - 10/18/2019 1:30 PM EDT Pulmonary Progress Note Subjective: Pulm following for acute hypoxic respiratory failure- multifactorial 2/2 AE suspected COPD, bilateral pleural effusions, and PNA. Hospitalization complicated by septic/hypovolemic shock, MAT, ileus, GIB, and colitis (suspected infectious). Required ICU admission on 10/02 and subsequently intubation 10/04. Extubated 10/06 to NIV. S/p right US guided thoracentesis 10/09- 800ml and left US guided thoracentesis 10/10- 900ml- both appear transudative. ID following- now off ABx and monitoring. Palliative care following. Today the patient is lying in bed in no acute distress. Denies fever, chills, SOB, cough, wheezing,or chest tightness. Everyday smoker prior to admission (1ppd x 16 years). On 3L O2. No previous home O2. No home maintenance inhalers. Never seen a Metal Tester. No PFTs. She is anxious regarding getting up out of bed and starting to move around. BP 107/72 Pulse 100 Temp 97.5 F (36.4 C) (Temporal) Resp 18 Ht 5' 7 (1.702 m) Wt 111 lb 14.4 oz (50.8 kg) SpO2 96% BMI 17.53 kg/m Intake/Output Summary (Last 24 hours) at 10/18/2019 1239 Last data filed at 10/18/2019 1136 Gross per 24 hour Intake 700 ml Output 1650 ml Net -950 ml Review of Systems Constitutional: Positive for activity change. Negative for appetite change, chills, fatigue and fever. HENT: Negative for congestion, postnasal drip and rhinorrhea. Respiratory: Negative for cough, chest tightness, shortness of breath and wheezing. Cardiovascular: Negative for chest pain, palpitations and leg swelling. Physical Exam Vitals signs and nursing note reviewed. Constitutional: General: She is not in acute distress. Appearance: She is well-developed. She is ill-appearing. Comments: Chronically ill-appearing HENT: Head: Normocephalic and atraumatic. Nose: Nose normal. Mouth/Throat: Pharynx: No oropharyngeal exudate. Eyes: General: No scleral icterus. Right eye: No discharge. Left eye: No discharge. Conjunctiva/sclera: Conjunctivae normal. Neck: Musculoskeletal: Normal range of motion and neck supple. Trachea: No tracheal deviation. Cardiovascular: Rate and Rhythm: Normal rate and regular rhythm. Heart sounds: Normal heart sounds. No murmur. No friction rub. No gallop. Pulmonary: Effort: Pulmonary effort is normal. No respiratory distress. Breath sounds: No stridor. No wheezing or rales. Comments: Diminished bilaterally. On 2L O2. No accessory muscle use or conversational dyspnea. Chest: Chest wall: No tenderness. Abdominal: Comments: Left nare NG--> clamped Musculoskeletal: Normal range of motion. General: No tenderness or deformity. Lymphadenopathy: Cervical: No cervical adenopathy. Skin: General: Skin is warm and dry. Capillary Refill: Capillary refill takes less than 2 seconds. Coloration: Skin is not pale. Findings: No erythema or rash. Neurological: Mental Status: She is alert and oriented to person, place, and time. Psychiatric: Behavior: Behavior normal. Thought Content: Thought content normal. Judgment: Judgment normal. Medications: Scheduled Meds: predniSONE 20 mg Oral Daily Followed by [START ON 10/21/2019] predniSONE 15 mg Oral Daily Followed by [START ON 10/24/2019] predniSONE 10 mg Oral Daily Followed by [START ON 10/27/2019] predniSONE 5 mg Oral Daily pantoprazole 40 mg Oral BID AC folic acid 1 mg Oral Daily thiamine 100 mg Oral Daily insulin lispro 0-6 Units Subcutaneous TID WC insulin lispro 0-3 Units Subcutaneous Nightly ipratropium-albuterol 1 ampule Inhalation TID polyethylene glycol 17 g Oral Daily QUEtiapine 25 mg Oral Nightly sodium chloride flush 10 mL Intravenous 2 times per day miconazole Topical BID lidocaine 1 patch Transdermal Daily PRN Meds: HYDROcodone 5 mg - acetaminophen, HYDROcodone 5 mg - acetaminophen, glucose, dextrose, glucagon (rDNA), dextrose, LORazepam, sodium chloride (Inhalant), bisacodyl, sennosides-docusate sodium, metoprolol, acetaminophen OR acetaminophen, promethazine OR ondansetron, albuterol, sodium chlorideflush Labs: CBC: Recent Labs 10/16/19 0237 10/17/19 0425 10/18/19 0526 WBC 19.4* 14.4* 12.5* HGB 11.9 10.1* 9.6* HCT 37.1 31.5* 30.0* MCV 84.3 84.0 85.8 PLT 645* 693* 750* BMP: Recent Labs 10/16/19 1537 10/17/19 0425 10/18/19 0526 NA 134* 132* 133* K 4.1 3.5 3.4* CL 97* 100 104 CO2 33* 28 24 PHOS 5.1* 3.7 2.7 BUN 8 9 8 CREATININE 0.46* 0.44* 0.40* 10/02: Strep pneumo/legionella urine antigens-- negative 10/06: ABG-- 7.53/26.2/97.3/21.5 10/09: ABG-- 7.43/34/54.7/22.1 10/02: Procal-- 17.52 10/06: Procal-- 0.26 10/10: Procal-- 0.15 10/06: Respiratory Culture 10/05/2019 4:47 PM [facility] Lab Rare normal respiratory carole. 10/09: COVID-19-- negative 10/10: RVP-- negative 10/09: Left US guided thoracentesis-- 800ml yellow fluid NO MALIGNANT CELLS IDENTIFIED. FINDINGS CONSISTENT WITH ACUTE INFLAMMATORY PROCESS. 10/10: Right US guided thoracentesis-- 900ml yellow/serosanguineous fluid 10/15: CXR-- Slightly improving acute on chronic interstitial disease. Persistent focal bilateral basilar airspace infiltrate right greater than left slightly improved on the left. 10/09: CT Chest-- 1. Pulmonary emphysema with patchy bilateral peripheral airspace disease suggestive of pneumonia. Imaging features can be seen with (Covid-19) pneumonia, though are nonspecific and can occur with a variety of infectious and noninfectious processes. 2. Moderate to large bilateral pleural effusions. 3. Severe hepatic steatosis with possible superimposed edema in the proper clinical setting. 4. NG tube tip near the GE junction. Recommend advancement several centimeters. 5. Age indeterminant T6 compression deformity with near complete height loss anteriorly and accentuated kyphosis at that level. 10/02: Echo-- 1. Left ventricle: Systolic function is normal by the biplane method of disks. The estimated ejection fraction is 60%. Doppler parameters are consistent with abnormal left ventricular relaxation (grade 1 diastolic dysfunction). 2. Right ventricle: The cavity size is mildly dilated. Systolic function is low normal. Right ventricular systolic pressure is within the normal range. 3. No significant valve disease. 4. Aorta: The aorta is normal. 5. Pericardium, extracardiac: There is no pericardial effusion. There is a large left pleural effusion. Patient Active Problem List Diagnosis GI bleed Sepsis (HCC) Acute respiratory failure with hypoxia (HCC) COPD (chronic obstructive pulmonary disease) (HCC) Tobacco abuse Chronic alcohol use Acute midline thoracic back pain Elevated serum creatinine Shock (HCC) Leucocytosis Colitis LORENZO (acute kidney injury) (HCC) Severe protein-calorie malnutrition (HCC) Agitation Alcohol abuse Debility Self neglect Palliative care encounter Goals of care, counseling/discussion COPD exacerbation (HCC) Bilateral pleural effusion Assessment/Plan: 1. Acute hypoxic respiratory failure-- multifactorial. Improving. On 3L O2. Wean to maintain SpO2 92% or greater. Encourage activity as tolerated, OOB with meals, and IS/acapella. Home O2 eval prior to d/c. 2. AE COPD/emphysema-- Continue Prednisone taper and scheduled DuoNebs. Recommend addition of LABA/LAMA (Anoro, Bevespi, Stiolto) and PRN Albuterol MDI on d/c. OP f/u including Full PFTs. 3. Bilateral pleural effusions-- S/p right US guided thoracentesis 10/09- 800ml and left US guided thoracentesis 10/10- 900ml- both appear transudative. Monitor oxygen requirements and WOB. Consider f/u imaging OP. 4. Ileus/colitis-- NG. ABx course completed- ID following. 5. Tobacco abuse-- Smoking cessation education provided > 5 minutes. 6. ETOH abuse-- advised complete cessation. CIWA protocol. Thiamine/Folic acid. 7. GOC-- palliative care following. Remains Full Code. Plan of care reviewed with Dr. Messer. Arranging OP f/u. Pulm will follow as needed. Please call with questions or concerns. Pager #[phone] * Keenan Gutierrez MD - 10/18/2019 11:27 AM EDT PROGRESS NOTE SUBJECTIVE: Patient seen and examined, I was wearing N95 mask throughout the patient encounter Interval history: On admission Presented with transferred out ICU with jensen and NG tube Overnight event : No New issues: tolerating diet better today, no other c/o Review of System: No CP No SOB No fever No cough No nausea No constipation No diarrhea No Abdominal Pain No dizziness No headache No focal weakness No dysuria No edema DIET CARB CONTROL; Dietary Nutrition Supplements: Low Calorie High Protein Supplement VITALS: BP 109/75 Pulse 90 Temp 97 F (36.1 C) (Temporal) Resp 18 Ht 5' 7 (1.702 m) Wt 111 lb 14.4 oz (50.8 kg) SpO2 98% BMI 17.53 kg/m BLOOD PRESSURE RANGE: Systolic (24hrs), Av , Min:101 , Max:114 ; Diastolic (24hrs), Av, Min:59, Max:75 24HR INTAKE/OUTPUT: Intake/Output Summary (Last 24 hours) at 10/18/2019 1127 Last data filed at 10/18/2019 0619 Gross per 24 hour Intake 550 ml Output 1650 ml Net -1100 ml PHYSICAL EXAM: General appearance: No apparent distress, appears stated age and cooperative. AOx3 HEENT: Normal cephalic, atraumatic without obvious deformity. PERRL. Extra ocular muscles intact. Conjunctivae/corneas clear. NG in place Neck: Supple, No JVD. Trachea midline. No lymphadenopathy. Respiratory: Normal respiratory effort. no Rales. no Wheezes. No Rhonchi. Cardiovascular: Regular rate and rhythm, normal S1/S2. no murmurs, no rubs, no gallops. Abdomen: Soft, non-tender, non-distended, normal bowel sounds. No rebound or guarding. Musculoskeletal: No clubbing, no cyanosis. No LE edema bilaterally. Skin: No rashes. Neurologic: No focal sensory, no motor deficits. Cranial nerves: II-XII intact LABS: Recent Labs 10/16/1923610/17/1942410/18/19 0526 WBC 19.4* 14.4* 12.5* HGB 11.9 10.1* 9.6* HCT 37.1 31.5* 30.0* MCV 84.3 84.0 85.8 PLT 645* 693* 750* Recent Labs 10/16/19 1537 10/17/1942410/18/19 0526 NA 134* 132* 133* K 4.1 3.5 3.4* CL 97* 100 104 CO2 33* 28 24 GLUCOSE 255* 134* 85 PHOS 5.1* 3.7 2.7 MG 2.2 1.9 1.7 BUN 8 9 8 CREATININE 0.46* 0.44* 0.40* Ionized Calcium: Lab Results Component Value Date IONCA 4.40 10/18/2019 Magnesium: Lab Results Component Value Date MG 1.7 10/18/2019 Phosphorus: Lab Results Component Value Date PHOS 2.7 10/18/2019 LIVER PROFILE: Recent Labs 10/16/1923610/17/1942410/18/19 0526 AST 40 36 32 ALT 22 21 22 BILITOT 0.5 0.4 0.3 ALKPHOS 166* 148* 113 LABALBU 2.6* 2.7* 2.5* PROT 5.5* 5.5* 5.4* PT/INR: Recent Labs 10/16/1923610/17/1942410/18/19 0526 PROTIME 10.9 10.8 10.6 INR 1.0 1.0 1.0 CARDIAC ENZYMES: No results for input(s): TROPONINI in the last 72 hours. Procalcitonin: Lab Results Component Value Date PROCAL 0.15 10/11/2019 U/A: Lab Results Component Value Date COLORU Yellow 10/03/2019 WBCUA >100 10/03/2019 RBCUA 51-100 10/03/2019 BACTERIA Few 10/03/2019 LEUKOCYTESUR 500 10/03/2019 UROBILINOGEN Normal 10/03/2019 BILIRUBINUR Negative 10/03/2019 GLUCOSEU Normal 10/03/2019 Urine Culture: No results for input(s): LABURIN in the last 72 hours. Blood Culture: Lab Results Component Value Date BC No growth at 5 days. 10/03/2019 IMAGINGS: XR CHEST PORTABLE Final Result XR ABDOMEN (KUB) (SINGLE AP VIEW) Final Result XR CHEST PORTABLE Final Result XR ABDOMEN (KUB) (SINGLE AP VIEW) Final Result XR CHEST PORTABLE Final Result XR ABDOMEN (KUB) (SINGLE AP VIEW) Final Result XR ABDOMEN (KUB) (SINGLE AP VIEW) Final Result US GUIDE THORACENTESIS Final Result XR CHEST PORTABLE Final Result US GUIDE THORACENTESIS Final Result XR ABDOMEN (KUB) (SINGLE AP VIEW) Final Result CT CHEST WO CONTRAST Final Result XR CHEST PORTABLE Final Result XR ABDOMEN (KUB) (SINGLE AP VIEW) Final Result XR CHEST PORTABLE Final Result CT Abdomen Pelvis W Contrast Final Result XR ABDOMEN (KUB) (SINGLE AP VIEW) Final Result XR ABDOMEN (KUB) (SINGLE AP VIEW) Final Result XR CHEST PORTABLE Final Result XR CHEST PORTABLE Final Result XR ABDOMEN (KUB) (SINGLE AP VIEW) Final Result XR CHEST PORTABLE Final Result XR ABDOMEN (KUB) (SINGLE AP VIEW) Final Result XR ABDOMEN (KUB) (SINGLE AP VIEW) Final Result XR CHEST PORTABLE Final Result US ABDOMEN LIMITED Specify organ? GALLBLADDER, LIVER Final Result XR ABDOMEN (KUB) (SINGLE AP VIEW) Final Result XR ABDOMEN (KUB) (SINGLE AP VIEW) Final Result CT Abdomen Pelvis W Contrast Final Result Scheduled Meds: methylPREDNISolone 20 mg Intravenous Daily folic acid 1 mg Oral Daily thiamine 100 mg Oral Daily insulin lispro 0-6 Units Subcutaneous TID WC insulin lispro 0-3 Units Subcutaneous Nightly ipratropium-albuterol 1 ampule Inhalation TID polyethylene glycol 17 g Oral Daily QUEtiapine 25 mg Oral Nightly sodium chloride flush 10 mL Intravenous 2 times per day miconazole Topical BID pantoprazole 40 mg Intravenous BID And sodium chloride (PF) 10 mL Intravenous BID lidocaine 1 patch Transdermal Daily Continuous Infusions: dextrose PRN Meds:HYDROcodone 5 mg - acetaminophen, HYDROcodone 5 mg - acetaminophen, glucose, dextrose, glucagon (rDNA), dextrose, LORazepam, sodium chloride (Inhalant), bisacodyl, sennosides-docusate sodium, metoprolol, acetaminophen OR acetaminophen, promethazine OR ondansetron, albuterol, sodiumchloride flush DIET CARB CONTROL; Dietary Nutrition Supplements: Low Calorie High Protein Supplement Advance Directive: Full Code ASSESSMENT AND PLAN Acute respiratory failure-multifactorial, was on NIV, now on NC O2, wean as able Bilateral pleural effusion s/p thoracentesis 900 ml from each side Septic /hypovolemic shock-resolved pneumonia-completed abx per ID UTI COPD AE-solumedrol Pulmonary edema-switched lasix over to bumex over to acetazolamide Ileus Severe malnutrition-ensure supplement, on PO diet per RESEARCH AIDE MAT-lopressor PRN GI bleed s/p EGD 10/04 revealed esophagitis, linear ulcerative area in stomach clipped and injected with epi, follow HH Hyperglycemia-low dose SS humalog Chronic alcohol use Colitis -suspect infectious [facility]-palliative care team follow dispo-PT OT SNF hammad SUTTON and bharati, Switch IV solumedrol and protonix to oral Wean O2 as able Normal Weight (BMI 18.5-24.9) Discharge planning: SNF Following past medical problems has been monitored in hospital Diagnosis Date COPD (chronic obstructive pulmonary disease) (HCC) Keenan Gutierrez MD On 10/18/2019 at 11:27 AM * Zoe Pickard, BONNY - 10/18/2019 11:15 AM EDT Speech Language Pathology Facility/Department: [facility] Dysphagia Treatment Note NAME: Dory Basurto : 1955 Patient Diagnosis(es): Patient Active Problem List Diagnosis GI bleed Sepsis (HCC) Acute respiratory failure with hypoxia (HCC) COPD (chronic obstructive pulmonary disease) (HCC) Tobacco abuse Chronic alcohol use Acute midline thoracic back pain Elevated serum creatinine Shock (HCC) Leucocytosis Colitis LORENZO (acute kidney injury) (HCC) Severe protein-calorie malnutrition (HCC) Agitation Alcohol abuse Debility Self neglect Palliative care encounter Goals of care, counseling/discussion COPD exacerbation (HCC) Bilateral pleural effusion Allergies: No Known Allergies Onset Date: 10/03/2019 Oxygen Level: 3L Recent CXR: Impression: Slightly improving acute on chronic interstitial disease. Persistent focal bilateral basilar airspace infiltrate right greater than left slightly improved on the left. Report Dictated on --- Final --- Dictated: 10/16/2019 1:30 pm Current Diet Level: general Pain: denies S: Pt seen bedside. O: Assess tolerance of oral diet A: NG in place but no tube feed running. Pt voicing irritation that it remains in place. Consumes few bites of water via straw, [place] muffin. No cough, throat clear or vocal quality change. Pt states that tube is annoying but denies any change to her swallow. [] Goal met [x] Progressing as expected [] Progressing slower than expected [] Medical status inhibits participation [] Goals not addressed this session [] Goals revised this session [] Unable to show any progress towards functional goals [] Progress towards functional goal is gradual / fair P: Continue regular diet and thin liquids. Will follow. If any dysphagia symptoms after NG removed,consider modified barium swallow study. An N95 mask, a full face shield and gloves were worn throughout this session. * Zoë Herndon - 10/18/2019 9:29 AM EDT Spiritual Care Follow-Up Note [facility] Palliative Care Patient Name:Dory Basurto Reason for visit: Referral Services Provided To:patient Assessment: Met with patient and offered spiritual support. Georgette is desiring prayer support. She received a phone during visit and requested resuming visit at another time. Progress towards goals: Plan: Follow up later on 10/17 Follow-Up: Zoë Herndon * Justo Vega, DOCUMENTATION SPECIALIST - 10/17/2019 5:15 PM EDT Physical Therapy Pt declined PT at this time d/t fatigue from just having large BM and cleanup w/ nsg staff. Will check back as schedule permits. * Yaneth Cronin MD - 10/17/2019 4:31 PM EDT Progress Note [facility] Patient - Dory Basurto, Age - 64 y.o. - 1955 Room Number - 1539/1539A Date of Admission - 10/03/2019 2:19 AM ASSESSMENT 1. Resolved Hypovolemic vs Septic Shock 2. Bilateral multifocal pulmonary infiltrates: pneumonia vs edema 3. Bilateral pleural effusions s/p thoracentesis 10/10, culture negative. 4. Colitis suspect infectious 5. UGIB secondary to gastric ulcer s/p EGD with clips 10/04 6. Urinary Tract Infection- culture negative 7. Leukocytosis - improving 8. COPD on Home O2 9. Diarrhea, stool studies negative. May be antibiotic related from the Zosyn versus less likely due to C. difficile as a test was -4 days ago. Repeat testing negative 10. Malnutrition/cachexia PLAN Monitor off antibiotics status post completed antibiotic course. Monitor wbc and temps Wean oxygen as toelrated SUBJECTIVE: Out of ICU. Feels okay. No focal complaints Improving WBC OBJECTIVE VITALS height is 5' 7 (1.702 m) and weight is 123 lb 8 oz (56 kg). Her temporal temperature is 98.4 F (36.9 C). Her blood pressure is 101/66 and her pulse is 102. Her respiration is 18 and oxygen saturation is 96%. Temp (24hrs), Av.9 F (36.6 C), Min:97 F (36.1 C), Max:98.6 F (37 C) General Appearance: Alert, NAD HEENT: wnl Neck: Supple Lungs: diminished bilateral unlabored on nasal canula Cardiovascular: RRR Abdomen: Soft NT, ND, BS+ + NGT in place : no CVAT. + jensen in place Neurologic: alert and oriented, no focal deficits Skin: No rashes Extremities: No edema, No joint inflammation Lines: sites clean MEDICATIONS: methylPREDNISolone 20 mg Intravenous Daily folic acid 1 mg Oral Daily thiamine 100 mg Oral Daily insulin lispro 0-6 Units Subcutaneous TID WC insulin lispro 0-3 Units Subcutaneous Nightly ipratropium-albuterol 1 ampule Inhalation TID polyethylene glycol 17 g Oral Daily QUEtiapine 25 mg Oral Nightly sodium chloride flush 10 mL Intravenous 2 times per day miconazole Topical BID pantoprazole 40 mg Intravenous BID And sodium chloride (PF) 10 mL Intravenous BID lidocaine 1 patch Transdermal Daily dextrose LABS: CBC: Recent Labs 10/15/1922710/16/1923610/17/19 0425 WBC 13.6* 19.4* 14.4* HGB 10.1* 11.9 10.1* PLT 495* 645* 693* BMP: Recent Labs 10/16/1923610/16/19 1537 10/17/19 0425 NA 135 134* 132* K 3.1* 4.1 3.5 CL 95* 97* 100 CO2 36* 33* 28 BUN 8 8 9 CREATININE 0.29* 0.46* 0.44* GLUCOSE 212* 255* 134* Hepatic: Recent Labs 10/15/1922710/16/1923610/17/19 0425 ALKPHOS 147* 166* 148* ALT 19 22 21 AST 48* 40 36 PROT 4.6* 5.5* 5.5* BILITOT 0.5 0.5 0.4 LABALBU 2.1* 2.6* 2.7* Lactic Acid: No results for input(s): LACTA in the last 72 hours. MICROBIOLOGY: 10/10 cdiff: negative 10/10 GI pcr: negative 10/10 RVP negative 10/10 pleural cx: ngtd, no afb or fungal 10/09 covid 19 negative 10/05 resp cx: normal carole 10/04 cdiff: negative 10/02 RVP: negative 10/02 legionella/strep ag negative 10/02 urine cx: negative 10/02 blood cx: negative IMAGING: reviewed Yaneth Cronin MD [facility] 10/17/2019 4:31 PM * Keenan Gutierrez MD - 10/17/2019 12:09 PM EDT PROGRESS NOTE SUBJECTIVE: Patient seen and examined, I was wearing N95 mask throughout the patient encounter Interval history: On admission Presented with transferred out ICU with jensen and NG tube Overnight event : No New issues: no specific medical complaints. Spoke to RN, not able to stand up Review of System: No CP No SOB No fever No cough No nausea No constipation No diarrhea No Abdominal Pain No dizziness No headache No focal weakness No dysuria No edema DIET CARB CONTROL; Dietary Nutrition Supplements: Low Calorie High Protein Supplement VITALS: BP 102/67 Pulse 101 Temp 98.6 F (37 C) (Temporal) Resp 18 Ht 5' 7 (1.702 m) Wt 123 lb 8 oz (56 kg) SpO2 95% BMI 19.34 kg/m BLOOD PRESSURE RANGE: Systolic (24hrs), Av , Min:94 , Max:118 ; Diastolic (24hrs), Av, Min:53, Max:80 24HR INTAKE/OUTPUT: Intake/Output Summary (Last 24 hours) at 10/17/2019 1209 Last data filed at 10/17/2019 1107 Gross per 24 hour Intake 100 ml Output 691 ml Net -591 ml PHYSICAL EXAM: General appearance: No apparent distress, appears stated age and cooperative. AOx3 HEENT: Normal cephalic, atraumatic without obvious deformity. PERRL. Extra ocular muscles intact. Conjunctivae/corneas clear. NG in place Neck: Supple, No JVD. Trachea midline. No lymphadenopathy. Respiratory: Normal respiratory effort. no Rales. no Wheezes. No Rhonchi. Cardiovascular: Regular rate and rhythm, normal S1/S2. no murmurs, no rubs, no gallops. Abdomen: Soft, non-tender, non-distended, normal bowel sounds. No rebound or guarding. Musculoskeletal: No clubbing, no cyanosis. No LE edema bilaterally. Skin: No rashes. Neurologic: No focal sensory, no motor deficits. Cranial nerves: II-XII intact LABS: Recent Labs 10/15/19 0228 10/16/19 0237 10/17/19 0425 WBC 13.6* 19.4* 14.4* HGB 10.1* 11.9 10.1* HCT 30.8* 37.1 31.5* MCV 83.1 84.3 84.0 PLT 495* 645* 693* Recent Labs 10/16/19 0237 10/16/19 1537 08/26/20 0425 NA 135 134* 132* K 3.1* 4.1 3.5 CL 95* 97* 100 CO2 36* 33* 28 GLUCOSE 212* 255* 134* PHOS 2.2* 5.1* 3.7 MG 1.4* 2.2 1.9 BUN 8 8 9 CREATININE 0.29* 0.46* 0.44* Ionized Calcium: Lab Results Component Value Date IONCA 4.20 10/17/2019 Magnesium: Lab Results Component Value Date MG 1.9 10/17/2019 Phosphorus: Lab Results Component Value Date PHOS 3.7 10/17/2019 LIVER PROFILE: Recent Labs 10/15/1922710/16/1923610/17/19424 AST 48* 40 36 ALT 19 22 21 BILITOT 0.5 0.5 0.4 ALKPHOS 147* 166* 148* LABALBU 2.1* 2.6* 2.7* PROT 4.6* 5.5* 5.5* PT/INR: Recent Labs 10/15/1922710/16/1923610/17/19424 PROTIME 11.4 10.9 10.8 INR 1.1 1.0 1.0 CARDIAC ENZYMES: No results for input(s): TROPONINI in the last 72 hours. Procalcitonin: Lab Results Component Value Date PROCAL 0.15 10/11/2019 U/A: Lab Results Component Value Date COLORU Yellow 10/03/2019 WBCUA >100 10/03/2019 RBCUA 51-100 10/03/2019 BACTERIA Few 10/03/2019 LEUKOCYTESUR 500 10/03/2019 UROBILINOGEN Normal 10/03/2019 BILIRUBINUR Negative 10/03/2019 GLUCOSEU Normal 10/03/2019 Urine Culture: No results for input(s): LABURIN in the last 72 hours. Blood Culture: Lab Results Component Value Date BC No growth at 5 days. 10/03/2019 IMAGINGS: XR CHEST PORTABLE Final Result XR ABDOMEN (KUB) (SINGLE AP VIEW) Final Result XR CHEST PORTABLE Final Result XR ABDOMEN (KUB) (SINGLE AP VIEW) Final Result XR CHEST PORTABLE Final Result XR ABDOMEN (KUB) (SINGLE AP VIEW) Final Result XR ABDOMEN (KUB) (SINGLE AP VIEW) Final Result US GUIDE THORACENTESIS Final Result XR CHEST PORTABLE Final Result US GUIDE THORACENTESIS Final Result XR ABDOMEN (KUB) (SINGLE AP VIEW) Final Result CT CHEST WO CONTRAST Final Result XR CHEST PORTABLE Final Result XR ABDOMEN (KUB) (SINGLE AP VIEW) Final Result XR CHEST PORTABLE Final Result CT Abdomen Pelvis W Contrast Final Result XR ABDOMEN (KUB) (SINGLE AP VIEW) Final Result XR ABDOMEN (KUB) (SINGLE AP VIEW) Final Result XR CHEST PORTABLE Final Result XR CHEST PORTABLE Final Result XR ABDOMEN (KUB) (SINGLE AP VIEW) Final Result XR CHEST PORTABLE Final Result XR ABDOMEN (KUB) (SINGLE AP VIEW) Final Result XR ABDOMEN (KUB) (SINGLE AP VIEW) Final Result XR CHEST PORTABLE Final Result US ABDOMEN LIMITED Specify organ? GALLBLADDER, LIVER Final Result XR ABDOMEN (KUB) (SINGLE AP VIEW) Final Result XR ABDOMEN (KUB) (SINGLE AP VIEW) Final Result CT Abdomen Pelvis W Contrast Final Result Scheduled Meds: methylPREDNISolone 20 mg Intravenous Daily folic acid 1 mg Oral Daily thiamine 100 mg Oral Daily insulin lispro 0-6 Units Subcutaneous TID WC insulin lispro 0-3 Units Subcutaneous Nightly ipratropium-albuterol 1 ampule Inhalation TID polyethylene glycol 17 g Oral Daily QUEtiapine 25 mg Oral Nightly sodium chloride flush 10 mL Intravenous 2 times per day miconazole Topical BID pantoprazole 40 mg Intravenous BID And sodium chloride (PF) 10 mL Intravenous BID lidocaine 1 patch Transdermal Daily Continuous Infusions: dextrose PRN Meds:HYDROcodone 5 mg - acetaminophen, HYDROcodone 5 mg - acetaminophen, glucose, dextrose, glucagon (rDNA), dextrose, LORazepam, sodium chloride (Inhalant), bisacodyl, sennosides-docusate sodium, metoprolol, acetaminophen OR acetaminophen, promethazine OR ondansetron, albuterol, sodiumchloride flush DIET CARB CONTROL; Dietary Nutrition Supplements: Low Calorie High Protein Supplement Advance Directive: Full Code ASSESSMENT AND PLAN Acute respiratory failure-multifactorial, was on NIV, now on NC O2, wean as able Bilateral pleural effusion s/p thoracentesis 900 ml from each side Septic /hypovolemic shock-resolved pneumonia-completed abx per ID UTI COPD AE-solumedrol Pulmonary edema-switched lasix over to bumex over to acetazolamide Ileus Severe malnutrition-ensure supplement, on PO diet per RESEARCH AIDE MAT-lopressor PRN GI bleed s/p EGD 10/04 revealed esophagitis, linear ulcerative area in stomach clipped and injected with epi, follow HH Hyperglycemia-low dose SS humalog Chronic alcohol use Colitis -suspect infectious [facility]-palliative care team follow dispo-PT OT SNF Consider dc NT and jensen, if tolerating diet and no problem overnight, Switch IV solumedrol and protonix once able to tolerating PO Wean O2 Normal Weight (BMI 18.5-24.9) Discharge planning: TBD Following past medical problems has been monitored in hospital Diagnosis Date COPD (chronic obstructive pulmonary disease) (HCC) Keenan Gutierrez MD On 10/17/2019 at 12:09 PM * Sd Marr - 10/17/2019 11:47 AM EDT Occupational Therapy Facility/Department: [facility] Daily Treatment Note NAME: Dory Basurto : 1955 Date of Service: 10/17/2019 Discharge Recommendations: (facility based) Assessment Assessment: Pt is making slow progress with OT and is overall at a min A level with ADLs and transfers with pt limited due to fatigue and pain. Pt is not at baseline and not safe to return home at this time. OT is recommending faclility based therapy upon D/C to increase pt indep with ADLs and transfers before returning home. REQUIRES OT FOLLOW UP: Yes Safety Devices Safety Devices in place: Yes Type of devices: All fall risk precautions in place;Call light within reach;Gait belt;Patient at risk for falls;Left in bed Patient Diagnosis(es): There were no encounter diagnoses. has a past medical history of COPD (chronic obstructive pulmonary disease) (HCC). has a past surgical history that includes eye surgery. Restrictions Restrictions/Precautions Restrictions/Precautions: Fall Risk Required Braces or Orthoses?: No Subjective General Chart Reviewed: Yes Patient assessed for rehabilitation services?: Yes Family / Caregiver Present: No Diagnosis: GI bleed; septic shock, UTI, hospital-acquired PNA, large L pleural effusion, ileus Subjective Subjective: Pt supine in bed and agreeable to OT tx. Pain Assessment Pain Assessment: 0-10 Pain Level: 8 Pain Type: Chronic pain Pain Location: Back Pain Orientation: Lower Vital Signs Patient Currently in Pain: Yes Orientation Orientation Overall Orientation Status: Within Functional Limits Objective ADL LE Dressing: Minimal assistance Toileting: Minimal assistance Balance Sitting Balance: Stand by assistance Standing Balance: Minimal assistance Standing Balance Time: pt sandhya 2 mins of standing before needing to rest due to fatigue Toilet Transfers Toilet - Technique: Stand step Equipment Used: Standard bedside commode Toilet Transfer: Minimal assistance Bed mobility Supine to Sit: Minimal assistance Sit to Supine: Minimal assistance Scooting: Supervision Comment: HOB elevated and cues for using bed rail with extended time to complete. Transfers Sit to stand: Minimal assistance Stand to sit: Minimal assistance Transfer Comments: cues for hand placement, pt fearful of falling Plan Plan Times per week: 3-5 Plan weeks: 2 Current Treatment Recommendations: Strengthening, Safety Education & Training, Balance Training, Patient/Caregiver Education & Training, Self-Care / ADL, Cognitive/Perceptual Training, Functional Mobility Training, Equipment Evaluation, Education, & procurement, Home Management Training, Endurance Training Plan Comment: cont ot tx per poc Goals Short term goals Time Frame for Short term goals: 2 weeks Short term goal 1: LB dressing, mod I-progressing Short term goal 2: Toilet transfer, mod I-progressing Short term goal 3: Toilet task, deya-care, mod I-progressing Short term goal 4: Dynamic standing task for 2-3 minutes with good standing balance-progressing Patient Goals Patient goals : none stated Therapy Time Individual Concurrent Group Co-treatment Time In 1122 Time Out 1147 Minutes 25 Timed Code Treatment Minutes: 25 Minutes(1 ADL, 1 ACT) Sd Marr * Matilda Tipton RN - 10/17/2019 11:28 AM EDT Patient wanted to ambulate to the bathroom and stated it has been awhile since she ambulated. Attempted without success, patient was not able to stand with assistance. * Jeannette Ang, RESEARCH AIDE - 10/17/2019 10:27 AM EDT Speech Language Pathology Planned to see pt for dysphagia therapy to assess tolerance of current diet; however, hoping to complete same once NGT is removed. NGT remains in place at this time. Will check status next date. Jeannette Ang MA, CCC-RESEARCH AIDE 10/17/2019 * Primitivo Cook MD - 10/17/2019 9:48 AM EDT Reviewed chart. Psychology to establish today with pt. Pain management consulted for symptoms. Georgette is currently voicing the desire to live longer, get better. Compliance will need to be stressed to her to have any chance at improving. If not, as she was asking to go home to her dog the other day, her risk of absolutely needs to be relayed as a resultof her decisions. If her goals are home rather than functional improvement or living longer, or if she medically declines, please reconsult us. Thank you. Dory Basurto has been seen in consultation by [facility]. They currently have no uncontrolled symptoms and have established goals of care and we have signed off of their case. The patient has established follow-up with PCP. * Ani Oshea, BROKERAGE BRANCH MANAGER - SPOOLER - 10/17/2019 9:11 AM EDT Pulmonary Progress Note Subjective: 64 y/o male with a PMHx of COPD, alcohol abuse (3-5 beers / day) who initially presented to [facility] on 10/03/19 as a transfer from [place]. The patient was in ICU from 10/02 - 10/08 for shock (septic vs hypovolemic). While in the ICU she was intubated for airway protection (10/04). GI was also consulted for acute blood loss anemia. She underwent an EGD 10/04 that showed esophagitis / linear ulcerative area in stomach that was clipped (4) and injected with epi. The patient was eventually extubated and transferred out of the ICU 10/08. On 10/09 patient was hypoxic, SOB and required transfer to ICU post left thoracentesis (900ml) on NIV. 10/10 Right thoracentesis 900ml. No prior home O2. Current smoker atadmission Today lying in bed. Feels miserable with NG tube. Denies fever, chills, cough. States breathing is baseline. BP 115/68 Pulse 99 Temp 97.2 F (36.2 C) (Temporal) Resp 18 Ht 5' 7 (1.702 m) Wt 123 lb 8oz (56 kg) SpO2 95% BMI 19.34 kg/m Intake/Output Summary (Last 24 hours) at 10/17/2019 0911 Last data filed at 10/16/2019 2212 Gross per 24 hour Intake 100 ml Output 1165 ml Net -1065 ml Review of Systems Constitutional: Negative for activity change, appetite change, chills, fever and unexpected weight change. HENT: Negative for congestion, mouth sores, postnasal drip, rhinorrhea, sinus pressure, sneezing, sore throat, trouble swallowing and voice change. Eyes: Negative for discharge, redness and visual disturbance. Respiratory: Negative for apnea, cough, choking, chest tightness, shortness of breath, wheezing andstridor. Cardiovascular: Negative for chest pain, palpitations and leg swelling. Gastrointestinal: Negative for abdominal distention, abdominal pain, diarrhea, nausea and vomiting. NG. Reports moving bowels Endocrine: Negative for cold intolerance, heat intolerance, polydipsia, polyphagia and polyuria. Genitourinary: Negative for difficulty urinating, dysuria and urgency. Musculoskeletal: Negative for arthralgias, gait problem and myalgias. Skin: Negative for color change, pallor and rash. Allergic/Immunologic: Negative for environmental allergies, food allergies and immunocompromised state. Neurological: Negative for dizziness, syncope, speech difficulty, weakness, numbness and headaches. Hematological: Negative for adenopathy. Does not bruise/bleed easily. Psychiatric/Behavioral: Negative for agitation, confusion, sleep disturbance and suicidal ideas. The patient is not nervous/anxious. Physical Exam Vitals signs and nursing note reviewed. Constitutional: General: She is not in acute distress. Appearance: She is well-developed. Comments: Frail, appears chronically ill HENT: Head: Normocephalic. Nose: Nose normal. Eyes: Conjunctiva/sclera: Conjunctivae normal. Pupils: Pupils are equal, round, and reactive to light. Neck: Musculoskeletal: Normal range of motion. Trachea: No tracheal deviation. Cardiovascular: Rate and Rhythm: Normal rate and regular rhythm. Heart sounds: Normal heart sounds. No murmur. No friction rub. No gallop. Pulmonary: Effort: Pulmonary effort is normal. No accessory muscle usage or respiratory distress. Breath sounds: No stridor. Comments: On 3L NC. Lungs are clear diminished throughout. Abdominal: Palpations: Abdomen is soft. Comments: NG to left nares. Bowel sounds are hypoactive Musculoskeletal: Normal range of motion. General: No swelling. Skin: General: Skin is warm and dry. Capillary Refill: Capillary refill takes less than 2 seconds. Findings: No rash. Neurological: Mental Status: She is alert and oriented to person, place, and time. Psychiatric: Behavior: Behavior normal. Thought Content: Thought content normal. Medications: Scheduled Meds: methylPREDNISolone 20 mg Intravenous Daily folic acid 1 mg Oral Daily thiamine 100 mg Oral Daily insulin lispro 0-6 Units Subcutaneous TID WC insulin lispro 0-3 Units Subcutaneous Nightly ipratropium-albuterol 1 ampule Inhalation TID polyethylene glycol 17 g Oral Daily QUEtiapine 25 mg Oral Nightly sodium chloride flush 10 mL Intravenous 2 times per day miconazole Topical BID pantoprazole 40 mg Intravenous BID And sodium chloride (PF) 10 mL Intravenous BID lidocaine 1 patch Transdermal Daily PRN Meds: HYDROcodone 5 mg - acetaminophen, HYDROcodone 5 mg - acetaminophen, glucose, dextrose, glucagon (rDNA), dextrose, LORazepam, sodium chloride (Inhalant), bisacodyl, sennosides-docusate sodium, metoprolol, acetaminophen OR acetaminophen, promethazine OR ondansetron, albuterol, sodium chlorideflush Labs: CBC: Recent Labs 10/15/198 10/16/197 10/17/19 0425 WBC 13.6* 19.4* 14.4* HGB 10.1* 11.9 10.1* HCT 30.8* 37.1 31.5* MCV 83.1 84.3 84.0 PLT 495* 645* 693* BMP: Recent Labs 10/16/197 10/16/19 1537 10/17/19 0425 NA 135 134* 132* K 3.1* 4.1 3.5 CL 95* 97* 100 CO2 36* 33* 28 PHOS 2.2* 5.1* 3.7 BUN 8 8 9 CREATININE 0.29* 0.46* 0.44* PT/INR: Recent Labs 10/15/19 0228 10/16/19 0237 10/17/19 0425 PROTIME 11.4 10.9 10.8 INR 1.1 1.0 1.0 10/10 Negative RVP 10/10 Right thoracentesis 900ml No AFB Culture no growth at 5 days No fungal Glucose 82 Protein <2.0 LDH 165 10/10 procalcitonin 0.15 10/09 COVID not detected 10/09 d-dimer 1.80 10/09 lactic acid 1.0 10/09 ABG 7.43/34/54/22/88% unknown FiO2 10/09 Left thoracentesis 900ml DIAGNOSIS NO MALIGNANT CELLS IDENTIFIED. FINDINGS CONSISTENT WITH ACUTE INFLAMMATORY PROCESS. 10/08 BNP 1,267 10/15 CXR Impression: Slightly improving acute on chronic interstitial disease. Persistent focal bilateral basilar airspace infiltrate right greater than left slightly improved on the left. 10/13 KUB Supine image of the abdomen was obtained. Oral gastric tube tip projects in the region of the gastric body. There is air noted in stomach and colon. Small bowel air appears decreased compared to yesterday's exam. Right upper and midabdomen is gasless which correlates with the contour of the liver from the CT of 10/06/2019. Infiltrates at the lung bases are unchanged from the prior exam. 10/09 CT chest IMPRESSION: 1. Pulmonary emphysema with patchy bilateral peripheral airspace disease suggestive of pneumonia. Imaging features can be seen with (Covid-19) pneumonia, though are nonspecific and can occur with a variety of infectious and noninfectious processes. 2. Moderate to large bilateral pleural effusions. 3. Severe hepatic steatosis with possible superimposed edema in the proper clinical setting. 4. NG tube tip near the GE junction. Recommend advancement several centimeters. 5. Age indeterminant T6 compression deformity with near complete height loss anteriorly and accentuated kyphosis at that level. 10/02 ECHO 1. Left ventricle: Systolic function is normal by the biplane method of disks. The estimated ejection fraction is 60%. Doppler parameters are consistent with abnormal left ventricular relaxation (grade 1 diastolic dysfunction). 2. Right ventricle: The cavity size is mildly dilated. Systolic function is low normal. Right ventricular systolic pressure is within the normal range. 3. No significant valve disease. 4. Aorta: The aorta is normal. 5. Pericardium, extracardiac: There is no pericardial effusion. There is a large left pleural effusion. Patient Active Problem List Diagnosis GI bleed Sepsis (HCC) Acute respiratory failure with hypoxia (HCC) COPD (chronic obstructive pulmonary disease) (HCC) Tobacco abuse Chronic alcohol use Acute midline thoracic back pain Elevated serum creatinine Shock (HCC) Leucocytosis Colitis LORENZO (acute kidney injury) (HCC) Severe protein-calorie malnutrition (HCC) Agitation Alcohol abuse Debility Self neglect Palliative care encounter Goals of care, counseling/discussion Assessment/Plan: 1. Acute hypoxic respiratory failure-no prior home O2, required NIV in ICU. Continue to maintain 92% or greater. 2. COPD VM-[id number] duonebs, will add IS 3. Bilateral pleural effusions improved post thoracentesis-continue to monitor for increased O2 needs, dyspnea 4. Tobacco abuse-continue smoking cessation support 5. Leukocytosis-most likely steroid is contributing to elevated WBC. No fevers. Still NPO and remains on IV solumedrol daily 6. Ileus-management per primary service 7. Anemia 2/2 GI dpsri-[id number]-kgezmyfwuj per primary service 8. ETOH abuse-CIWA protocol in place Plan of care reviewed with Dr Messer. Pager #[phone] * Nasrin Baum - 10/16/2019 10:12 PM EDT Patient Evaluation Form The patient is currently receiving Duoneb Q4 Points 0 1 2 3 4 Points Totals Pulmonary Status (-/+) History Smoking history < 20 pack years Smoking history > 20 pack years Pulmonary Disorder (acute or chronic) Severe or Chronic with Exacerbation 4 Surgical Status No Surgery Trach PEG General Surgery Lower Abdominal Thoracic or Upper Abdominal Thoracic with Pulmonary Disorder 1 Chest X-ray Clear None Ordered Chronic Changes CXR results Pending Infiltrates, atelectasis, pleural effusion, or edema Infiltrates in more than one lobe Infiltrate + Atelectasis, &/or pleural effusion 2 Respiratory Pattern Regular, RR = 12-20 Increased, RR = 21-25 WILSON, irregular, or RR = 26-30 Decreased FEV1 or RR = 31-35 Severe SOB, used of of accessory muscles, or RR = > 35 1 Mental Status Alert, oriented, cooperative Confused, but follows commands Lethargic or un-able to follow commands Obtunded Comatose 0 Breath Sounds Clear to auscultation Decreased unilaterally or in bases only Decreased bilaterally Crackles or intermittent wheezes Wheezes 1 Cough Strong, spontaneous, & nonproductive Strong, spontaneous, & productive Weak, nonproductive Weak, productive or with wheezes No spontaneous cough or may require suctioning 2 Level of Activity Ambulatory Ambulatory with Assist Non-ambulatroy Paraplegic Quadriplegic 1 Triage 1 > 20 pts Triage 2 16-20 pts Triage 3 11- 15 pts Triage 4 6 - 10 pts Triage 5 0 - 5 pts TOTAL POINTS = 12 Triage Score = 3 Patient instructed and returned demonstration on use of MDI No Changing Therapy to Duoneb TID * Primitivo Cook MD - 10/16/2019 6:29 PM EDT Reviewed chart, patient resting. Otherwise lucid today, per team and nurse. Spoke with ICU team at length. Recommended CLP referral for depression leading to alcohol abuse. Will have SW engage for HCPOA. Ultimately, pt has a treatable condition that is unfortunately severe enough to be life threatening. Goals are to live longer. Pt will need to be compliant if she has any hope of improving. Will continue to follow. * Yaneth Cronin MD - 10/16/2019 4:32 PM EDT Progress Note [facility] Patient - Dory Basurto, Age - 64 y.o. - 1955 Room Number - [id number] [facility] - [id number] Date of Admission - 10/03/2019 2:19 AM ASSESSMENT 1. Resolved Hypovolemic vs Septic Shock 2. Bilateral multifocal pulmonary infiltrates: pneumonia vs edema 3. Bilateral pleural effusions s/p thoracentesis 10/10, culture negative. 4. Colitis suspect infectious 5. UGIB secondary to gastric ulcer s/p EGD with clips 10/04 6. Urinary Tract Infection- culture negative 7. Leukocytosis - improving 8. COPD on Home O2 9. Diarrhea, stool studies negative. May be antibiotic related from the Zosyn versus less likely due to C. difficile as a test was -4 days ago. Repeat testing negative 10. Malnutrition/cachexia PLAN Monitor off antibiotics status post completed antibiotic course. Monitor wbc and temps Wean oxygen as toelrated SUBJECTIVE: Leukocytosis fluctuating 18>13>19. Noted on steroids. Afebrile. Oxygen increased to 5L nasal canula saturating 99-100%. Denies cough/cp. Started on diet. CXR shows slightly improvements OBJECTIVE VITALS height is 5' 7 (1.702 m) and weight is 127 lb 3.3 oz (57.7 kg). Her temporal temperature is 97.1 F(36.2 C). Her blood pressure is 105/80 and her pulse is 108. Her respiration is 23 and oxygen saturation is 99%. Temp (24hrs), Av.9 F (36.6 C), Min:97.1 F (36.2 C), Max:99.2 F (37.3 C) General Appearance: Alert, NAD HEENT: wnl Neck: Supple Lungs: diminished bilateral unlabored on nasal canula Cardiovascular: RRR Abdomen: Soft NT, ND, BS+ + NGT in place : no CVAT. + jensen in place Neurologic: alert and oriented, no focal deficits Skin: No rashes Extremities: No edema, No joint inflammation Lines: sites clean MEDICATIONS: acetaZOLAMIDE 500 mg Intravenous Q6H [START ON 10/17/2019] methylPREDNISolone 20 mg Intravenous Daily [START ON 10/17/2019] folic acid 1 mg Oral Daily [START ON 10/17/2019] thiamine 100 mg Oral Daily insulin lispro 0-6 Units Subcutaneous TID insulin lispro 0-3 Units Subcutaneous Nightly polyethylene glycol 17 g Oral Daily QUEtiapine 25 mg Oral Nightly ipratropium-albuterol 1 ampule Inhalation Q4H sodium chloride flush 10 mL Intravenous 2 times per day miconazole Topical BID pantoprazole 40 mg Intravenous BID And sodium chloride (PF) 10 mL Intravenous BID lidocaine 1 patch Transdermal Daily dextrose LABS: CBC: Recent Labs 10/14/19 0012 10/15/19 0228 10/16/19 0237 WBC 18.6* 13.6* 19.4* HGB 10.1* 10.1* 11.9 PLT 473* 495* 645* BMP: Recent Labs 10/15/19 1428 10/16/19 0237 10/16/19 1537 NA 137 135 134* K 4.1 3.1* 4.1 CL 102 95* 97* CO2 28 36* 33* BUN 7 8 8 CREATININE 0.21* 0.29* 0.46* GLUCOSE 272* 212* 255* Hepatic: Recent Labs 10/14/19 0012 10/15/1922710/16/19236 ALKPHOS 193* 147* 166* ALT 19 22 AST 39 48* 40 PROT 4.8* 4.6* 5.5* BILITOT 0.5 0.5 0.5 LABALBU 2.2* 2.1* 2.6* Lactic Acid: No results for input(s): LACTA in the last 72 hours. MICROBIOLOGY: 10/10 cdiff: negative 10/10 GI pcr: negative 10/10 RVP negative 10/10 pleural cx: ngtd, no afb or fungal 10/09 covid 19 negative 10/05 resp cx: normal carole 10/04 cdiff: negative 10/02 RVP: negative 10/02 legionella/strep ag negative 10/02 urine cx: negative 10/02 blood cx: negative IMAGING: reviewed [facility] Pager: [phone] 10/16/2019 4:32 PM I personally saw and evaluated the patient. I reviewed the nurse practitioner note. I agree w theirassessment and plan unless otherwise noted. [facility] 10/16/2019 4:50 PM * Tierney White MD - 10/16/2019 3:04 PM EDT ICU TRANSFER CHECKLIST Transfer Med Reconciliation (resume home meds if able, convert to PO if able) Complete Antibiotics (name, indication, duration, convert to PO if able) None Steroid (indication, duration, convert to PO if able) Yes, addressed in today's progress note Anticipated [place] Medications (ICU initiated) or Dose Changes and Indication Yes, patient not on any home meds on arrival Permanently Discontinued Home Medications and Reason for medication contraindication No Jensen Catheter (please remove if able) No Central Line (please remove if able) No Transfer Discussed with: Dr. Carisa Medley If additional questions for ICU team within 24 hours of ICU transfer, page for clarifications. * Elvira Del Toro SLP - 10/16/2019 1:50 PM EDT Facility/Department: [facility] ICU T3 Dysphagia Treatment Note NAME: Dory Basurto : 1955 Patient Diagnosis(es): Patient Active Problem List Diagnosis GI bleed Sepsis (HCC) Acute respiratory failure with hypoxia (HCC) COPD (chronic obstructive pulmonary disease) (HCC) Tobacco abuse Chronic alcohol use Acute midline thoracic back pain Elevated serum creatinine Shock (HCC) Leucocytosis Colitis LORENZO (acute kidney injury) (HCC) Severe protein-calorie malnutrition (HCC) Agitation Alcohol abuse Debility Self neglect Palliative care encounter Goals of care, counseling/discussion Allergies: No Known Allergies Onset Date: 10/03/2019 Oxygen Level: Up to 5 liters nasal canula (was 3L last session) Current Diet Level: Regular / Thin Liquids; + NGT but now TF stopped Compensatory Techniques []Chin tuck [x]Small bolus [x]Alternate bites/ sips []No straws []Liquids by teaspoon only []Swallow x 2 with each bolus []Alternate lemon ice between each bolus [x]Position patient upright []Other Pain:None reported S: Alert and cooperative. Patient has a moist congested, non productive cough today. Patient statesThat is just me. Some days it is worse than others.. O: Assess patient tolerance of a PO diet in the environment of an NGT. A: Patient continues with adequate mastication, bolus formation and AP transit of all textures. Theswallow continues to be audible with moist boli - especially thin liquids. Patient continues with clear vocal quality. There is a congested cough observed today that was not documented last session. Concerned that patient may not be fully able to protect the airway with the NGT in place. The NGT isvisualized and is not coiled in the oropharynx. Patient denies discomfort or tightness with the swallow. Patient denies any sticking sensation after the swallow. SInce TF has been stopped. Hope that the NGT can be removed soon so as to avoid an increased risk of aspiration. [] Goal met [x] Progressing as expected [] Progressing slower than expected [] Medical status inhibits participation [] Goals not addressed this session [] Goals revised this session [] Unable to show any progress towards functional goals [] Progress towards functional goal is gradual / fair P: Recommend patient continue on a Regular diet including thin liquids. Recommend removal of the NGT so as to reduce the risk of incomplete airway protection with PO intake. Time Out: 1345 Session Time: 15 minutes A KN95 mask, a full face shield and gloves were worn throughout this session. * Tierney White MD - 10/16/2019 6:38 AM EDT ICU Progress Note Dory Basurto : 1955(64 y.o.) Date: October 16, 2019 Team: ICU Attending: Dr. aGel Nunez Chief Complaint: SOB Subjective: Pt encountered asleep in bed this AM. Per nurse, pt O2 reqs upped from 3L to 5L via NC 2/2 desat to78%. Pt reports having good appetite and was able to eat 75% of PO meal yesterday. No SOB. Precedexwas weaned off and pt did not have agitation overnight. Having small BMs per nursing. Denies CP/palpitations. Ativan being given as needed, usually gets anxious during breathing tx, given once overnight. Review of Systems Constitutional: Negative for chills, diaphoresis, fatigue and fever. HENT: Negative for rhinorrhea and sore throat. Respiratory: Positive for cough. Negative for choking, chest tightness, shortness of breath, wheezing and stridor. Cardiovascular: Negative for chest pain, palpitations and leg swelling. Gastrointestinal: Negative for abdominal distention, abdominal pain, constipation and nausea. Genitourinary: Negative for flank pain and pelvic pain. Musculoskeletal: Positive for back pain. Negative for myalgias, neck pain and neck stiffness. Skin: Negative for rash and wound. Neurological: Negative for headaches. Psychiatric/Behavioral: Negative for agitation and confusion. Scheduled Meds: potassium chloride 40 mEq Oral Once calcium gluconate IVPB 4 g Intravenous Once potassium phosphate IVPB 20 mmol Intravenous Once magnesium sulfate 4 g Intravenous Once potassium chloride 10 mEq Intravenous Q1H acetaZOLAMIDE 500 mg Intravenous Q6H insulin regular 0-18 Units Subcutaneous 4x Daily AC & HS polyethylene glycol 17 g Oral Daily QUEtiapine 25 mg Oral Nightly methylPREDNISolone 40 mg Intravenous Daily ipratropium-albuterol 1 ampule Inhalation Q4H sodium chloride flush 10 mL Intravenous 2 times per day miconazole Topical BID pantoprazole 40 mg Intravenous BID And sodium chloride (PF) 10 mL Intravenous BID lidocaine 1 patch Transdermal Daily thiamine 100 mg Intravenous Daily folic acid IVPB 1 mg Intravenous Daily Continuous Infusions: [Held by provider] bumetanide 0.1 mg/mL infusion 0.5 mg/hr (10/15/19 1850) dextrose dexmedetomidine Stopped (10/15/19 1600) dextrose PRN meds used in last 24hrs: dilaudid x1, ativan x1, lopressor x1 Objective: VITALS: BP 108/75 Pulse 124 Temp 97.5 F (36.4 C) (Temporal) Resp 20 Ht 5' 7 (1.702 m) Wt130 lb 12.1 oz (59.3 kg) SpO2 98% BMI 20.48 kg/m CURRENT PULSE OXIMETRY: SpO2: 98 % I/O: 10/14 0701 - 10/15 0700 In: 321 [P.O.:240; I.V.:51] Out: 6075 [Urine:6075] Ventilator Settings: Vent Mode: AC/VC+ Rate Set: 12 bmp Vt Ordered: 400 mL Pressure Support: 0 cmH20 PEEP/CPAP: 8 FiO2 : 36 % Oxygen Delivery - O2 Flow Rate (L/min): 5 L/min Invasive Lines and Dates: None Intubation Date: N/A General Appearance: []WDWN []Obese []Cachectic [x]Thin [x]ill Skin: Temperature [x]Warm []Cool Rash []Yes [x]No Tattoo(s) []Yes [x]No HEENT: Pupils round and react [x]Yes []No Sclera []Icteric []Non-Icteric Conjunctiva []Injected [x]Non-Injected Pinnae [x]Normal []Other Dentitian [][place] Teeth []Dentures Oral Mucosa [x][place] []Moist [x]Dry Oral ETT []Present [x]Absent Neck: Trachea midline [x]Yes []No Thyromegaly []Yes [x]No Crepitus []Present [x]Absent Jvd []Present [x]Absent Lungs: [x]Clear []Crackles []Wheezes [][place] Respiratory effort []Labored [x]Non-Labored Heart: Rate []Regular [x]Irregular [x]Tachycardia []Bradycardia Rhythm [x]Regular []Irregular Murmur []Present [x]Absent Peripheral Edema []Present [x]Absent Abdomen: [x]Soft Bowel Sounds [x]Present []Absent []Tender [x]Non-Tender []Distended [x]Non-distended Hernia []Present [x]Absent Organomegaly []Present [x]Absent []Scar Extremities: Cyanosis []Present [x]Absent STEELE ([x]RUE [x]RLE [x]LUE [x]LLE) Neurologic: [place] []Yes [x]No Corneal reflexes []Present []Absent Plantar reflexes []Up []Down []Absent Withdraws to tactile []Yes []No Follows Commands [x]Yes []No []Unresponsive to verbal [x]Cranial nerves grossly intact [x]Sensation grossly intact Psych: Alert [x]yes []no Oriented []x0 []x1 []x2 [x]x3 Affect [x]Normal []Flat []Agitated []Anxious []Calm []Sedated []NAD [facility] Labs within last 72 hours BMP: Recent Labs 10/15/19 0228 10/15/19 1428 10/16/19 0237 NA 138 137 135 K 3.5 4.1 3.1* CL 104 102 95* CO2 30 28 36* BUN 6* 7 8 CREATININE 0.21* 0.21* 0.29* CALCIUM 7.5* 7.8* 7.7* MG 2.8* 1.9 1.4* PHOS 2.7 2.9 2.2* LFTS: Recent Labs 10/14/19 0012 10/15/1922710/16/19236 AST 39 48* 40 ALT PROT 4.8* 4.6* 5.5* LABALBU 2.2* 2.1* 2.6* BILITOT 0.5 0.5 0.5 ALKPHOS 193* 147* 166* Glucose: Recent Labs 10/13/19 0937 10/13/19 1731 10/13/19 1955 10/14/19 0012 10/14/19 0619 10/14/19 1157 10/14/19 1352 10/14/19 1717 10/15/19 0228 10/15/19 0554 10/15/19 1428 10/15/19 1502 10/15/19 2200 10/16/19 0237 GLUCOSE 202* -- -- -- 216* -- -- 209* -- 174* -- 272* -- -- 212* POCGLU -- < > 277* 192* -- 244* 224* -- 101* -- 106* -- 263* 194* -- < > = values in this interval not displayed. CBC: Recent Labs 10/14/19 0012 10/15/1922710/16/19236 WBC 18.6* 13.6* 19.4* HGB 10.1* 10.1* 11.9 HCT 31.0* 30.8* 37.1 PLT 473* 495* 645* MCV 84.4 83.1 84.3 RDW 20.5* 20.7* 21.3* ABGs: No results for input(s): PHART, OIE2WVR, PO2ART, OLT0VOY, K3GURQWC, FIO2A in the last 72 hours. Lactic Acid: No results for input(s): LACTA in the last 72 hours. INR: Recent Labs 10/14/19 0012 10/15/19 0228 10/16/19 0237 INR 1.1 1.1 1.0 pro-BNP: No results for input(s): NTPROBNP in the last 72 hours. Cardiac Injury Profile: No results for input(s): CKTOTAL, CKMB, TROPONINI in the last 72 hours. Labs in Last 3 months: Lab Results Component Value Date INR 1.0 10/16/2019 NTPROBNP 1,267 (H) 10/09/2019 LABA1C 5.9 10/16/2019 Imaging: CXR 10/14/19 Diffuse bilateral reticulonodular infiltrates, unchanged. Cultures: BCx 10/02 - NGTD UCx 10/02 - negative C diff - negative COVID19 - negative Gram stain 10/09 - Many PMNs, no organisms Thora labs - Many PMNs, no organisms Fungal stain - no fungal elements AFB stain - no acid fast bacilli GI PCR Panel - negative Respiratory PCR - negative Assessment and Plan: Principal Problem: GI bleed Active Problems: Sepsis (HCC) Acute respiratory failure with hypoxia (HCC) COPD (chronic obstructive pulmonary disease) (HCC) Tobacco abuse Chronic alcohol use Acute midline thoracic back pain Elevated serum creatinine Shock (HCC) Leucocytosis Colitis LORENZO (acute kidney injury) (HCC) Severe protein-calorie malnutrition (HCC) Agitation Alcohol abuse Debility Self neglect Palliative care encounter Goals of care, counseling/discussion Resolved Problems: * No resolved hospital problems. * #Acute Respiratory Failure with Hypoxia - improving - Previous chest CTA at [facility] negative for PE. Respiratory panel negative. COVID-19 and repeat negative. Crazy paving noted on CT. - CXR 10/11 shows diffuse pleural effusions. Repeat CXR 10/13 unchanged. - Previous procal 1.82 > 0.26 > 0.15. - WBC downtrending; 19.4 today, up from 13.6, likely 2/2 diuresis - Prev on NIV s/p thoracentesis, currently tolerating NC at 5L (up from 3L) - S/p Zoysn, cefepime, flagyl, meropenem, doxy - S/p RT and LT thoracentesis with 900mL drained from each side; fluid analysis revealed many PMNs,no organisms - Was on diuresis on Lasix 40 mg IV daily, changed to Bumex yesterday PM - Had 6 L output overnight, now alkalotic, clinically dry on exam this AM - Bumex d/c'd , Acetazolamide 500 mg x2 and 500 ml NS bolus given - Cont solumedrol 40 mg daily - Precedex drip for sedation, weaned off 10/14 PM. - Seroquel nightly - Ativan PRN for breakthrough - Palliative consulted for GOC and code status discussion #Ileus - Had multiple watery BMs while on floor and after transfer to unit (concern for c. Diff which was neg). Now without BMs, but endorses passing gas. Nutrition status was poor and has been receiving TF. Small BM noted by nursing. - Continue NG in case PO status decreases - Tube feeds held overnight, patient maintaining adequate PO - KUB done 10/13 - Small bowel air appears decreased - Bowel regimen including scheduled glycolax, PRN sennakot/dulcolax - BG in low-mid 200's since increasing tube feeds; now transitioned to PO diet - monitor #Severe Malnutrition - Albumin consistently low on admission, possible cause of ascites/effusions - Hypophosphatemia, repleted as needed - Passed RESEARCH AIDE with NG in, able to tolerate PO - PO diet as above, maintain NG for now - Monitor for refeeding syndrome - Supplement with NGT feeds if needed - Ensure supplements added #Multifocal Atrial Tachycardia - HR 108-132 this morning - Gave 5mg lopressor PRN for tachycardia - Correct electrolyte disturbances 2/2 diuresis - Acetazolamide, NS, electrolytes - Reassess post-electrolyte correction #Hyperglycemia - monitor - Prev BG elevated in 200's - Started on tube feeds, trickle progressed to goal (immune enhancing). Passed RESEARCH AIDE and allowed to eat, continue to monitor PO status. - Switched to PO diet - On LD SSI - BG cont to be low-mid 200's, cont to monitor #GI Bleed - resolved - No evidence of active GI bleed - s/p EGD 10/04 that showed esophagitis, linear ulcerative area in stomach that was clipped and injected w/ epi - Cont to monitor #Chronic alcohol use - Per son, pt consumed 10-15 drinks per day - Currently hospitalized 10 days, low risk withdrawal sx - ADM/CLP recommended #Colitis - Recent C. Diff and GI PCR negative - F/U outpatient GI Prophylaxis: pantoprazole 40mg BID DVT Prophylaxis: SCDs - recent GIB Associated attestation - Gael Nunez MD - 10/16/2019 12:00 PM EDT I have personally seen the patient and examined along with the resident team. I personally obtainedthe scott and relevent portions of the history and performed physical exam. I reviewed the chart including MAR , labs and radiology and discussed the patient's plan of action with the resident. This note reflects my plan of care as I have edited the note to reflect my findings and my assessment and plan. Acute respiratory failure - Multifactorial - COPD+ large bilateral pleural effusions ( S/p thoracentesis ) + possible aspiration Pneumonia/Pneumonitis (Crazy paving pattern in CT chest) + Pulmonary vascular congestion . S/p overnight bumex gtt on 10/14- good response , developing contraction alkalosis , administer 2 doses of acetazolamide and 500 cc bolus back . Get CXR today. Upper GI bleed - 10 cm linear gastric ulcer S/p clipping and epinephrine injection on 10/04, no more recurrence of GIB Severe malnutrition - continue PO , keep NG for couple of days until tolerating PO well. - Re-test for COVID 19 was negative - Discontinue diuresis - - Complex pain issues leading to excessive drowsiness - will consult pain management. Transfer to the floor today Follow up pall care recommendation Sedation- None Antibiotics - none Lines - none Nutrition and GI- Ng in place , Mechanical ventilation and weaning- not intubated Pressor Ulcers - L coccyx * Elvira Begum, RD, LD - 10/15/2019 5:19 PM EDT Comprehensive Nutrition Assessment Type and Reason for Visit: Reassess Nutrition Recommendations/Plan: 1. EN was running@10 mls/hour during RD visit - now off and diet initiated - unable to obtain tolerance of po as it was just ordered. 2. Liberalize diet to CHO controlled, pt does not require Renal diet. 3. Monitor po intake - initiate ONS - Low Calorie High Protein Oral Supplement (Ensure HP) on dinner tray. 4. Monitor nutritional status. Nutrition Assessment: Pt with PMH that includes COPD, 2.5 ppd cigarettes, 5-15 beers/day, chronic back pain/fx who has been admitted for 12 days. NG re- inserted and EN is running @ 10 mls/hour, concern for re-feeding syndrome. NFPA: severe clavicle protrusion, moderate temporal wasting, calves - loss of muscle definition, loss of subcutaneous fat: orbital (dark circles/slightly hollow appearance), interosseus. RD entered room and pt was cheerful, EN running @ 10 mls/hour. RN stated pt may also be able to eat, decisions have not been made yet. Malnutrition Assessment: Malnutrition Status: Severe malnutrition Context: Acute Illness Findings of the 6 clinical characteristics of malnutrition: Energy Intake: 7 - 50% or less of estimated energy requirements for 5 or more days Weight Loss: 7 - Greater than 5% over 1 month Body Fat Loss: 1 - Mild body fat loss Orbital, Buccal region(interosseus) Muscle Mass Loss: 7 - Moderate muscle mass loss Temples (temporalis), Clavicles (pectoralis & deltoids), Calf (gastrocnemius), Hand (interosseous) Fluid Accumulation: 1 - Mild Extremities Macroeconomics Professor Strength: Not Performed Estimated Daily Nutrient Needs: Energy (kcal): 25-30 kcals/kg = 1759-4899 kcals/day. Can start with 25-30 kcals/kg UBW/Admission body weight (53.1kgs) = 9995-5999 kcals/day; Weight Used for Energy Requirements: Enigma Protein (g): 1.4-1.6g protein IBW (61.3kgs) = 84-98g protein/day; Weight Used for Protein Requirements: Enigma Fluid (ml/day): per MD order; Weight Used for Fluid Requirements: Enigma Nutrition Related Findings: +BS, abd distended, +1 BUE non-pitting edema. Current Nutrition Therapies: DIET CARB CONTROL; Renal Current Tube Feeding (TF) Orders: Feeding Route: Nasogastric Formula: Immune Enhancing Current TF & Flush Orders Provides: Pivot 1.5 @ 10 mls/hour = 360 kcals, 23 g protein/day TF isnow off. Goal TF & Flush Orders Provides: n/a Anthropometric Measures: Height: 5' 7 (170.2 cm) Current Body Weight: 104 lb (47.2 kg)(10/11/19) Admission Body Weight: 117 lb (53.1 kg) Usual Body Weight: 117 lb (53.1 kg) Enigma Body Weight: 135 lbs; % Enigma Body Weight 77 % BMI: 16.3 BMI Categories: Normal Weight (BMI 18.5-24.9) BMP: Recent Labs 10/14/19 0012 10/14/19 1352 10/15/19 0228 10/15/19 1428 NA 142 139 138 137 K 3.8 3.7 3.5 4.1 CL 107 103 104 102 CO2 31* 33* 30 28 BUN 7 7 6* 7 CREATININE 0.26* 0.21* 0.21* 0.21* GLUCOSE 216* 209* 174* 272* CALCIUM 7.4* 7.6* 7.5* 7.8* IONCA 4.20* -- 4.20* -- MG 1.8 1.7 2.8* 1.9 PHOS 2.0* 2.1* 2.7 2.9 HEPATIC: Recent Labs 10/13/19 0220 10/14/19 0012 10/15/19 0228 AST 37 39 48* ALT 20 19 19 BILITOT 0.6 0.5 0.5 ALKPHOS 110 193* 147* Nutrition Diagnosis: Severe malnutrition, In context of acute illness or injury related to impaired respiratory function, altered GI function as evidenced by diarrhea, NPO or clear liquid status due to medical condition,intake 0-25%, poor intake prior to admission, weight loss greater than or equal to 5% in 1 month(11.1% x 1 month) Nutrition Interventions: Food and/or Nutrient Delivery: Continue NPO, Continue Current Tube Feeding Nutrition Education/Counseling: No recommendation at this time Coordination of Nutrition Care: Continued Inpatient Monitoring Goals: Pt receives estimated energy/protein requirements via EN vs TPN. Nutrition Monitoring and Evaluation: Food/Nutrient Intake Outcomes: Enteral Nutrition Intake/Tolerance, Parenteral Nutrition Intake/Tolerance Physical Signs/Symptoms Outcomes: Biochemical Data, Nutrition Focused Physical Findings, Diarrhea, GI Status, Nausea or Vomiting, Fluid Status or Edema, Hemodynamic Status, Skin, Weight, Chewing or Swallowing Discharge Planning: Too soon to determine Contact: Pager #[phone] * Yaneth Cronin MD - 10/15/2019 4:26 PM EDT Progress Note [facility] Patient - Dory Basurto, Age - 64 y.o. - 1955 Room Number - [id number] [facility] - [id number] Date of Admission - 10/03/2019 2:19 AM ASSESSMENT 1. Resolved Hypovolemic vs Septic Shock 2. Bilateral multifocal pulmonary infiltrates: pneumonia vs edema 3. Bilateral pleural effusions s/p thoracentesis 10/10, culture negative. 4. Colitis suspect infectious 5. UGIB secondary to gastric ulcer s/p EGD with clips 10/04 6. Urinary Tract Infection- culture negative 7. Leukocytosis - improving 8. COPD on Home O2 9. Diarrhea, stool studies negative. May be antibiotic related from the Zosyn versus less likely due to C. difficile as a test was -4 days ago. Repeat testing negative 10. Malnutrition/cachexia PLAN Monitor off antibiotics Monitor wbc and temps SUBJECTIVE: Feels ok, afebrile. Oxygen weaned to 3L nasal canula saturating 97%. Has a cough with small sputum production. Denies sob/cp. Tolerating tube feeds no nausea/vomiting. All cultures remains negative. Leukocytosis trending down OBJECTIVE VITALS height is 5' 7 (1.702 m) and weight is 130 lb 12.1 oz (59.3 kg). Her oral temperature is 97.3 F (36.3 C). Her blood pressure is 119/74 and her pulse is 98. Her respiration is 17 and oxygen saturation is 97%. Temp (24hrs), Av.9 F (36.6 C), Min:97.1 F (36.2 C), Max:98.7 F (37.1 C) General Appearance: Alert, NAD HEENT: wnl Neck: Supple Lungs: diminished bilateral unlabored on 3L nasal canula Cardiovascular: RRR Abdomen: Soft NT, ND, BS+ + NGT in place : no CVAT. No jensen Neurologic: alert and oriented, no focal deficits Skin: No rashes Extremities: No edema, No joint inflammation Lines: sites clean MEDICATIONS: insulin regular 0-18 Units Subcutaneous Q6H polyethylene glycol 17 g Oral Daily QUEtiapine 25 mg Oral Nightly methylPREDNISolone 40 mg Intravenous Daily ipratropium-albuterol 1 ampule Inhalation Q4H sodium chloride flush 10 mL Intravenous 2 times per day miconazole Topical BID pantoprazole 40 mg Intravenous BID And sodium chloride (PF) 10 mL Intravenous BID lidocaine 1 patch Transdermal Daily thiamine 100 mg Intravenous Daily folic acid IVPB 1 mg Intravenous Daily bumetanide 0.1 mg/mL infusion 1 mg/hr (10/15/19 1527) dexmedetomidine 0.303 mcg/kg/hr (10/15/19 1440) dextrose LABS: CBC: Recent Labs 10/13/1921910/14/191110/15/19227 WBC 26.3* 18.6* 13.6* HGB 9.5* 10.1* 10.1* PLT 453* 473* 495* BMP: Recent Labs 10/14/19 1352 10/15/1922710/15/19 1428 NA 139 138 137 K 3.7 3.5 4.1 CL 103 104 102 CO2 33* 30 28 BUN 7 6* 7 CREATININE 0.21* 0.21* 0.21* GLUCOSE 209* 174* 272* Hepatic: Recent Labs 10/13/1921910/14/191110/15/19227 ALKPHOS 110 193* 147* ALT 20 19 AST 37 39 48* PROT 5.0* 4.8* 4.6* BILITOT 0.6 0.5 0.5 LABALBU 2.4* 2.2* 2.1* Lactic Acid: No results for input(s): LACTA in the last 72 hours. MICROBIOLOGY: 10/10 cdiff: negative 10/10 GI pcr: negative 10/10 RVP negative 10/10 pleural cx: ngtd, no afb or fungal 10/09 covid 19 negative 10/05 resp cx: normal carole 10/04 cdiff: negative 10/02 RVP: negative 10/02 legionella/strep ag negative 10/02 urine cx: negative 10/02 blood cx: negative IMAGING: reviewed [facility] Pager: [phone] 10/15/2019 4:31 PM I personally saw and evaluated the patient. I reviewed the nurse practitioner note. I agree w theirassessment and plan unless otherwise noted. Yaneth Cronin MD [facility] 10/15/2019 8:55 PM * Elvira Del Toro, BONNY - 10/15/2019 11:07 AM EDT Facility/Department: [facility] ICU T3 Dysphagia Treatment Note NAME: Dory Basurto : 1955 Patient Diagnosis(es): Patient Active Problem List Diagnosis GI bleed Sepsis (HCC) Acute respiratory failure with hypoxia (HCC) COPD (chronic obstructive pulmonary disease) (HCC) Tobacco abuse Chronic alcohol use Acute midline thoracic back pain Elevated serum creatinine Shock (HCC) Allergies: No Known Allergies Onset Date: 10/03/2019 Oxygen Level: O2 Device: 3 liters; Patient RR did not exceed 30 during this session. Current Diet Level: NGTF with ice chips Pain: RN managing S: Alert and cooperative. NGT replaced yesterday PM O: Repeat bedside swallow evaluation A: Spoke with the MD team. Patient did not appear strong enough for a PO diet and is so malnourished that an NGT was placed after the bedside swallow evaluation was completed 10/14/2019. A repeat clinical swallow evaluation was requested with the NGT to remain in place. Patient tolerated a jay cracker mixed with applesauce, applesauce via teaspoon and water from a straw without overt evidence of oropharyngeal dysphagia. Laryngeal excursion is clinically complete. The swallow is audible especially with thin liquids. However, patient maintains a clear and dry voice throughout. [] Goal met [x] Progressing as expected [] Progressing slower than expected [] Medical status inhibits participation [] Goals not addressed this session [] Goals revised this session [] Unable to show any progress towards functional goals [] Progress towards functional goal is gradual / fair P: Recommend NGTF with a PO diet as tolerated. Will need to adjust TF schedule to allow for an adequate appetite for PO meals. Will continue the dysphagia plan of care. Time Out: 1100 Session Time: 15 minutes A KN95 mask, a full face shield and gloves were worn throughout this session. * Tierney White MD - 10/15/2019 6:54 AM EDT ICU Progress Note Dory Basurto : 1955(64 y.o.) Date: October 15, 2019 Team: ICU Attending: Dr. Nunez Chief Complaint:SOB Subjective: Pt encountered in bed this AM asleep in bed. Pt had no new complaints. Mild cough productive of sputum. Denies abdominal pain, chest pain, palpitations, SOB, anxiety. Endorses appetite. No BM or emesis; passing gas. Pt in restraints, responding appropriately, AOx3. Review of Systems Constitutional: Negative for chills, diaphoresis, fatigue and fever. HENT: Negative for rhinorrhea, sore throat and trouble swallowing. Respiratory: Positive for cough. Negative for chest tightness, shortness of breath and wheezing. Cardiovascular: Negative for chest pain, palpitations and leg swelling. Gastrointestinal: Negative for abdominal distention, abdominal pain, constipation, diarrhea, nauseaand vomiting. Genitourinary: Negative for flank pain and pelvic pain. Musculoskeletal: Positive for back pain and myalgias. Negative for neck stiffness. Skin: Negative for rash. Neurological: Positive for headaches. Negative for dizziness, speech difficulty and light-headedness. Psychiatric/Behavioral: Negative for agitation and confusion. Scheduled Meds: calcium gluconate IVPB 2 g Intravenous Once insulin regular 0-16 Units Subcutaneous Q6H polyethylene glycol 17 g Oral Daily QUEtiapine 25 mg Oral Nightly furosemide 40 mg Intravenous Daily methylPREDNISolone 40 mg Intravenous Daily ipratropium-albuterol 1 ampule Inhalation Q4H sodium chloride flush 10 mL Intravenous 2 times per day miconazole Topical BID pantoprazole 40 mg Intravenous BID And sodium chloride (PF) 10 mL Intravenous BID lidocaine 1 patch Transdermal Daily thiamine 100 mg Intravenous Daily folic acid IVPB 1 mg Intravenous Daily Continuous Infusions: dexmedetomidine 0.3 mcg/kg/hr (10/14/19 1717) dextrose PRN meds used in last 24hrs: Ativan x1, Dilaudid x1 Objective: VITALS: BP 102/63 Pulse 92 Temp 98.7 F (37.1 C) (Temporal) Resp 25 Ht 5' 7 (1.702 m) Wt 130 lb 12.1 oz (59.3 kg) SpO2 98% BMI 20.48 kg/m CURRENT PULSE OXIMETRY: SpO2: 98 % I/O: 10/13 0701 - 10/14 0700 In: 1119 [I.V.:869] Out: 1620 [Urine:1620] Ventilator Settings: Vent Mode: AC/VC+ Rate Set: 12 bmp Vt Ordered: 400 mL Pressure Support: 0 cmH20 PEEP/CPAP: 8 FiO2 : 36 % Oxygen Delivery - O2 Flow Rate (L/min): 3 L/min Invasive Lines and Dates: None Intubation Date: N/A General Appearance: []WDWN []Obese []Cachectic [x]Thin [x]ill Skin: Temperature [x]Warm []Cool Rash []Yes [x]No Tattoo(s) []Yes [x]No HEENT: Pupils round and react [x]Yes []No Sclera []Icteric [x]Non-Icteric Conjunctiva []Injected [x]Non-Injected Pinnae [x]Normal []Other Dentitian [x][place] Teeth []Dentures Oral Mucosa [x][place] [x]Moist []Dry Oral ETT []Present [x]Absent Neck: Trachea midline [x]Yes []No Thyromegaly []Yes [x]No Crepitus []Present [x]Absent Jvd []Present [x]Absent Lungs: [x]Clear []Crackles []Wheezes [][place] Respiratory effort []Labored [x]Non-Labored Heart: Rate [x]Regular []Irregular []Tachycardia []Bradycardia Rhythm [x]Regular []Irregular Murmur []Present [x]Absent Peripheral Edema []Present [x]Absent Abdomen: [x]Soft Bowel Sounds [x]Present []Absent [x]Tender []Non-Tender []Distended [x]Non-distended Hernia []Present [x]Absent Organomegaly []Present [x]Absent []Scar Extremities: Cyanosis []Present [x]Absent STEELE ([x]RUE [x]RLE [x]LUE [x]LLE) Neurologic: [place]K []Yes [x]No Corneal reflexes []Present []Absent Plantar reflexes []Up []Down []Absent Withdraws to tactile []Yes []No Follows Commands [x]Yes []No []Unresponsive to verbal [x]Cranial nerves grossly intact [x]Sensation grossly intact Psych: Alert [x]yes []no Oriented []x0 []x1 []x2 [x]x3 Affect [x]Normal []Flat []Agitated []Anxious [x]Calm [x]Sedated []NAD Select Labs within last 72 hours BMP: Recent Labs 10/14/19 0012 10/14/19 1352 10/15/19 0228 NA 142 139 138 K 3.8 3.7 3.5 CL 107 103 104 CO2 31* 33* 30 BUN 7 7 6* CREATININE 0.26* 0.21* 0.21* CALCIUM 7.4* 7.6* 7.5* MG 1.8 1.7 2.8* PHOS 2.0* 2.1* 2.7 LFTS: Recent Labs 10/13/19 0220 10/14/19 0012 10/15/19227 AST 37 39 48* ALT 20 19 19 PROT 5.0* 4.8* 4.6* LABALBU 2.4* 2.2* 2.1* BILITOT 0.6 0.5 0.5 ALKPHOS 110 193* 147* Glucose: Recent Labs 10/12/19 1422 10/12/19200710/13/19 0220 10/13/19 0605 10/13/19 0937 10/13/19 1237 10/13/19 1731 10/13/19195410/14/19 0012 10/14/19 0619 10/14/19 1157 10/14/19 1352 10/14/19 1717 10/15/19 0228 10/15/19 0554 GLUCOSE 195* -- 238* -- 244* -- -- 202* -- -- -- 216* -- -- 209* -- 174* -- POCGLU -- < > -- < > -- < > 229* -- 202* 277* 192* -- 244* 224* -- 101* -- 106* < > = values in this interval not displayed. CBC: Recent Labs 10/13/1921910/14/191110/15/19227 WBC 26.3* 18.6* 13.6* HGB 9.5* 10.1* 10.1* HCT 29.3* 31.0* 30.8* PLT 453* 473* 495* MCV 83.7 84.4 83.1 RDW 19.9* 20.5* 20.7* ABGs: No results for input(s): PHART, RCG2KFG, PO2ART, UKB9VBK, S7STBCMR, FIO2A in the last 72 hours. Lactic Acid: No results for input(s): LACTA in the last 72 hours. INR: Recent Labs 10/13/1921910/14/191110/15/19227 INR 1.1 1.1 1.1 pro-BNP: No results for input(s): NTPROBNP in the last 72 hours. Cardiac Injury Profile: No results for input(s): CKTOTAL, CKMB, TROPONINI in the last 72 hours. Labs in Last 3 months: Lab Results Component Value Date INR 1.1 10/15/2019 NTPROBNP 1,267 (H) 10/09/2019 Imaging: CXR 10/14/19 Diffuse bilateral reticulonodular infiltrates, unchanged. Cultures: BCx 10/02 - NGTD UCx 10/02 - negative C diff - negative COVID19 - negative Gram stain 10/09 - Many PMNs, no organisms Thora labs - Many PMNs, no organisms Fungal stain - no fungal elements AFB stain - no acid fast bacilli GI PCR Panel - negative Respiratory PCR - negative Assessment and Plan: Principal Problem: GI bleed Active Problems: Sepsis (HCC) Acute respiratory failure with hypoxia (HCC) COPD (chronic obstructive pulmonary disease) (HCC) Tobacco abuse Chronic alcohol use Acute midline thoracic back pain Elevated serum creatinine Shock (HCC) Resolved Problems: * No resolved hospital problems. * #Acute Respiratory Failure with Hypoxia - improving - Previous chest CTA at [facility] negative for PE. Respiratory panel negative. COVID-19 and repeat negative. Crazy paving noted on CT. - CXR 10/11 shows diffuse pleural effusions. Repeat CXR 10/13 unchanged. - Previous procal 1.82 > 0.26 > 0.15. - WBC downtrending; 13.6 today, down from 18.6 - Prev on NIV s/p thoracentesis, currently tolerating HFNC - S/p Zoysn, cefepime, flagyl, meropenem, doxy - S/p RT and LT thoracentesis with 900mL drained from each side; fluid analysis revealed many PMNs,no organisms - Cont Lasix 40mg IV, on jensen for accurate UOP - Cont solumedrol 40 mg daily - Precedex drip for sedation - Seroquel nightly - Ativan PRN for breakthrough - Palliative consulted for GOC and code status discussion; f/u recs on 10/14 #Ileus - Had multiple watery BMs while on floor and after transfer to unit. Now without BMs, but endorses passing gas. - Difficulty maintaining NGT 2/2 pt pulling out - KUB 10/12 read as unremarkable bowel gas pattern. Appears more distended. - Tube feeds increased to goal - 40 ml/hr, no episodes of emesis - Currently maintaining on NGT 2/2 AMS/resp difficulty (improving) - BG in low-mid 200's since increasing tube feeds - monitor #Severe Malnutrition - stable - Albumin consistently low on admission, possible cause of ascites/effusions - Hypophosphatemia, repleted as needed - Pt ok'd for PO, however currently has NGT 2/2 mental status changes - Dietary consulted, pending recs - Monitor for refeeding syndrome - RESEARCH AIDE with NG in to be done today - if passes, okay to try PO diet - Continue NG for now #Hyperglycemia - monitor - Prev BG elevated in 200's - Started on tube feeds, trickle progressed to goal (immune enhancing). Difficulty maintaining NGT. - Switched to PO diet, pending recs from dietary - On LD SSI - Recent BG below 200's, cont to monitor #GI Bleed - resolved - No evidence of active GI bleed - s/p EGD 10/04 that showed esophagitis, linear ulcerative area in stomach that was clipped and injected w/ epi - Cont to monitor #Chronic alcohol use - resolved - Per son, pt consumed 10-15 drinks per day - Currently hospitalized 10 days, low risk withdrawal sx #Colitis - Recent C. Diff and GI PCR negative - F/U outpatient GI Prophylaxis: pantoprazole 40mg BID DVT Prophylaxis: SCDs - recent GIB Associated attestation - Gael Nunez MD - 10/15/2019 2:55 PM EDT I have personally seen the patient and examined along with the resident team. I personally obtainedthe scott and relevent portions of the history and performed physical exam. I reviewed the chart including MAR , labs and radiology and discussed the patient's plan of action with the resident. This note reflects my plan of care as I have edited the note to reflect my findings and my assessment and plan. Acute respiratory failure - Multifactorial - COPD+ large bilateral pleural effusions ( S/p thoracentesis ) + possible aspiration Pneumonia/Pneumonitis( Crazy paving pattern in CT chest) + Pulmonary vascular congestion Upper GI bleed - 10 cm linear gastric ulcer S/p clipping and epinephrine injection on 10/04, no more recurrence of GIB Severe malnutrition - Re-test for COVID 19 - Aggressive diuresis - bumex gtt - continue ICU care for 24 hrs , will reevaluate the transfer in am. Sedation- Precedex for agitation Antibiotics - none Lines - none Nutrition and GI- Ng in place , Mechanical ventilation and weaning- not intubated Pressor Ulcers - none * Zoe Pickard, BONNY - 10/14/2019 1:00 PM EDT Speech Language Pathology Facility/Department: [facility] ICU T3 CLINICAL BEDSIDE SWALLOW EVALUATION NAME: Dory Basurto : 1955 ADMISSION DATE: 10/03/2019 ADMITTING DIAGNOSIS: has GI bleed; Sepsis (HCC); Acute respiratory failure with hypoxia (HCC); COPD(chronic obstructive pulmonary disease) (HCC); Tobacco abuse; Chronic alcohol use; Acute midline thoracic back pain; Elevated serum creatinine; and Shock (HCC) on their problem list. ONSET DATE: 10/03/2019 Recent Chest Xray/CT of Chest: IMPRESSION: Diffuse bilateral reticulonodular infiltrates, unchanged. The NG tube has been removed.Report Dictated on --- Final --- Dictated: 10/14/2019 10:32 am Date of Eval: 10/14/2019 Evaluating Therapist: Zoe Pickard MA, CCC-RESEARCH AIDE Current Diet level: Current Diet : NPO Current Liquid Diet : NPO Primary Complaint This is a 64 yo F admitted on 10/03/19 with septic shock, Bilateral PNA and effusions, possible infected colitis, UGIB (10/05/19 s/p EGD with clips). Pt is currently admitted to ICU on 45% HFNC with intermittent NIV, on precedex gtt. Dilaudid 0.5 mgx 2, Tylenol x 1 and Ativan 0.5 mg x 1. Pain: Pain Assessment Pain Assessment: 0-10 Pain Level: 5 Patient's Stated Pain Goal: 2 Pain Type: Acute pain, Chronic pain Pain Location: Back Pain Orientation: Mid Pain Radiating Towards: n/a Pain Descriptors: Aching Pain Frequency: Continuous Pain Onset: On-going Clinical Progression: Not changed Functional Pain Assessment: Prevents or interferes some active activities and ADLs Non-Pharmaceutical Pain Intervention(s): Emotional support, Repositioned Response to Pain Intervention: Asleep with RR greater than 10 Multiple Pain Sites: No RASS Score: Agitated Pain Assessment/FLACC Pain Rating: FLACC (rest) - Face: no particular expression or smile Pain Rating: FLACC (rest) - Legs: normal position or relaxed Pain Rating: FLACC (rest) - Activity: lying quietly, normal position, moves easily Pain Rating: FLACC (rest) - Cry: no cry (awake or asleep) Pain Rating: FLACC (rest) - Consolability: content, relaxed Score: FLACC (rest): 0 Pain Rating: FLACC (activity) - Face: no particular expression or smile Pain Rating: FLACC (activity) - Legs: normal position or relaxed Pain Rating: FLACC (activity): lying quietly, normal position, moves easily Pain Rating: FLACC (activity) - Cry: no cry (awake or asleep) Pain Rating: FLACC (activity) - Consolability: content, relaxed Score: FLACC (activity): 0 Reason for Referral Dory Basurto was referred for a clinical swallow evaluation to assess her swallow function, identify signs and symptoms of dysphagia and make recommendations regarding safe dietary consistencies,effective compensatory strategies, and safe eating environment. Impression Dysphagia Diagnosis: Swallow function appears grossly intact Dysphagia Impression : Clinically functional oropharyngeal swallow Treatment Plan Requires RESEARCH AIDE Intervention: Yes Duration/Frequency of Treatment: 3x/ week x 1 week Recommended Diet and Intervention Diet Solids Recommendation: Regular Liquid Consistency Recommendation: Thin Recommended Form of Meds: PO Treatment/Goals Long-term Goals Timeframe for Long-term Goals: 1 week Goal 1: Pt will consume regular texture diet and thin liquids with no oropharyngeal dysphgaia-related complications General Chart Reviewed: Yes Behavior/Cognition: Cooperative;Requires cueing;Pleasant mood Respiratory Status: O2 via nasual cannula O2 Device: High flow nasal cannula Liters of Oxygen: (35L) Communication Observation: Functional Follows Directions: Simple Dentition: Dentures top;Dentures bottom Patient Positioning: Upright in bed Baseline Vocal Quality: Normal Volitional Cough: Strong Prior Dysphagia History: Previous clinical exam on 10/12/2019 was WFL Consistencies Administered: Reg solid;Thin - straw;Thin - cup;Thin - teaspoon;Ice Chips;Dysphagia Pureed (Dysphagia I) Vision/Hearing Vision Vision: Within Functional Limits Hearing Hearing: Within functional limits Oral Motor Deficits Oral/Motor Oral Motor: Within functional limits Oral Phase Dysfunction Oral Phase Oral Phase: WFL Indicators of Pharyngeal Phase Dysfunction Pharyngeal Phase Pharyngeal Phase: WFL Pharyngeal Phase Pharyngeal: No overt clinical signs of airway penetration Prognosis Prognosis Prognosis for safe diet advancement: good Barriers/Prognosis Comment: Respiratory status, mentation Individuals consulted Consulted and agree with results and recommendations: Patient;RN Education Patient Education Response: Verbalizes understanding Safety Devices in place: Yes Therapy Time RESEARCH AIDE Individual Minutes Time In: 1245 Time Out: 1300 Minutes: 15 RESEARCH AIDE Total Treatment Time Total Treatment Time: 15 An N95 mask, a full face shield and gloves were worn throughout this session. Zoe Pickard MA, CCC-RESEARCH AIDE 10/14/2019 1:00 PM * Tierney White MD - 10/14/2019 6:24 AM EDT ICU Progress Note Dory Bowman Atilio : 1955(64 y.o.) Date: October 14, 2019 Team: ICU Attending: Dr. Suarez Chief Complaint: SOB Subjective: Last night patient remained on precedex, did not pull at lines. Had adequate UOP. Tolerating increased tube feeds. No BM overnight and no episodes of emesis. She remained on HFNC overnight. Receivingdilaudid for chronic back pain. This AM patient has no complaints. She is AOx3. Shortly after being seen, she pulled out NG. Placedback in restraints. Was also very anxious during breathing treatment and ativan given with good response. She is responding appropriately. Denies abd pain. In restraints. Remains hemodynamically stable. Review of Systems Constitutional: Negative for appetite change, diaphoresis and fever. HENT: Negative for congestion and sore throat. Respiratory: Negative for cough, chest tightness, shortness of breath and wheezing. Cardiovascular: Negative for chest pain and leg swelling. Gastrointestinal: Negative for abdominal pain, constipation, diarrhea, nausea and vomiting. Genitourinary: Negative for difficulty urinating, dysuria, flank pain, frequency and urgency. Musculoskeletal: Positive for back pain. Negative for arthralgias, myalgias and neck pain. Skin: Negative for rash. Neurological: Negative for dizziness and headaches. Psychiatric/Behavioral: Negative for confusion. Scheduled Meds: potassium phosphate IVPB 20 mmol Intravenous Once furosemide 40 mg Intravenous Daily methylPREDNISolone 40 mg Intravenous Daily insulin lispro 0-6 Units Subcutaneous Q6H insulin lispro 0-3 Units Subcutaneous Nightly ipratropium-albuterol 1 ampule Inhalation Q4H sodium chloride flush 10 mL Intravenous 2 times per day miconazole Topical BID pantoprazole 40 mg Intravenous BID And sodium chloride (PF) 10 mL Intravenous BID [Held by provider] lactulose 30 g Oral BID lidocaine 1 patch Transdermal Daily thiamine 100 mg Intravenous Daily folic acid IVPB 1 mg Intravenous Daily Continuous Infusions: dexmedetomidine 0.3 mcg/kg/hr (10/14/19 0100) dextrose Objective: VITALS: BP 117/65 Pulse 74 Temp 99 F (37.2 C) (Temporal) Resp 28 Ht 5' 7 (1.702 m) Wt 130 lb 12.1 oz (59.3 kg) SpO2 96% BMI 20.48 kg/m CURRENT PULSE OXIMETRY: SpO2: 96 % I/O: 10/12 0701 - 10/13 0700 In: 1987 [I.V.:1163] Out: 450 [Urine:450] Ventilator Settings: Vent Mode: AC/VC+ Rate Set: 12 bmp Vt Ordered: 400 mL Pressure Support: 0 cmH20 PEEP/CPAP: 8 FiO2 : 45 % Oxygen Delivery - O2 Flow Rate (L/min): 40 L/min Invasive Lines and Dates: None Intubation Date: N/A General Appearance: []WDWN []Obese [x]Cachectic []Thin [x]ill Skin: Temperature [x]Warm []Cool Rash []Yes [x]No Tattoo(s) []Yes [x]No HEENT: Pupils round and react [x]Yes []No Sclera []Icteric []Non-Icteric Conjunctiva []Injected [x]Non-Injected Pinnae [x]Normal []Other Dentitian [][place] Teeth []Dentures Oral Mucosa [x][place] [x]Moist []Dry Oral ETT []Present [x]Absent Neck: Trachea midline [x]Yes []No Thyromegaly []Yes []No Crepitus []Present [x]Absent Jvd []Present [x]Absent Lungs: []Clear []Crackles []Wheezes [x]Rhonchi, bilateral Respiratory effort []Labored [x]Non-Labored Heart: Rate [x]Regular []Irregular []Tachycardia []Bradycardia Rhythm [x]Regular []Irregular Murmur []Present [x]Absent Peripheral Edema []Present [x]Absent Abdomen: [x]Soft Bowel Sounds [x]Present []Absent []Tender [x]Non-Tender []Distended []Non-distended Hernia []Present [x]Absent Organomegaly []Present [x]Absent []Scar Extremities: Cyanosis []Present [x]Absent STEELE ([x]RUE [x]RLE [x]LUE [x]LLE) Neurologic: [place] []Yes [x]No Corneal reflexes []Present []Absent Plantar reflexes []Up []Down []Absent Withdraws to tactile []Yes []No Follows Commands [x]Yes []No []Unresponsive to verbal []Cranial nerves grossly intact []Sensation grossly intact Psych: Alert [x]yes []no Oriented []x0 []x1 []x2 [x]x3 Affect []Normal []Flat []Agitated []Anxious []Calm [x]Sedated []NAD [facility] within last 72 hours BMP: Recent Labs 10/13/19 0220 10/13/19 0937 10/14/19 0012 NA 139 140 142 K 3.8 3.8 3.8 CL 107 109* 107 CO2 27 28 31* BUN 5* 5* 7 CREATININE 0.24* 0.21* 0.26* CALCIUM 7.3* 7.5* 7.4* MG 2.1 2.2 1.8 PHOS 2.6 2.0* 2.0* LFTS: Recent Labs 10/12/19 0410 10/13/19 0220 10/14/19 0012 AST 37 37 39 ALT 20 20 19 PROT 5.3* 5.0* 4.8* LABALBU 2.5* 2.4* 2.2* BILITOT 0.7 0.6 0.5 ALKPHOS 129* 110 193* Glucose: Recent Labs 10/12/19 0410 10/12/19 1422 10/12/19 1901 10/12/19200710/12/19 20310/13/19 0220 10/13/19 0225 10/13/19 0605 10/13/19 0937 10/13/19 1237 10/13/19 1731 10/13/19 1955 10/14/19 0012 10/14/19 0619 GLUCOSE 201* -- 195* -- 238* -- 244* -- -- 202* -- -- -- 216* -- POCGLU -- < > -- 237* -- 230* -- 188* 229* -- 202* 277* 192* -- 244* < > = values in this interval not displayed. CBC: Recent Labs 10/12/19 0728 10/13/19 02210/14/19 0012 WBC 28.4* 26.3* 18.6* HGB 9.9* 9.5* 10.1* HCT 30.4* 29.3* 31.0* PLT 400 453* 473* MCV 84.9 83.7 84.4 RDW 19.8* 19.9* 20.5* ABGs: No results for input(s): PHART, QAX6ENV, PO2ART, EOP9AOU, Y9LFKXXZ, FIO2A in the last 72 hours. Lactic Acid: No results for input(s): LACTA in the last 72 hours. INR: Recent Labs 10/12/19 0410 10/13/19 0220 10/14/19 0012 INR 1.2* 1.1 1.1 pro-BNP: No results for input(s): NTPROBNP in the last 72 hours. Cardiac Injury Profile: No results for input(s): CKTOTAL, CKMB, TROPONINI in the last 72 hours. Labs in Last 3 months: Lab Results Component Value Date INR 1.1 10/14/2019 NTPROBNP 1,267 (H) 10/09/2019 Imaging: CT CHEST 10/09: IMPRESSION: 1. Pulmonary emphysema with patchy bilateral peripheral airspace disease suggestive of pneumonia. Imaging features can be seen with (Covid-19) pneumonia, though are nonspecific and can occur with a variety of infectious and noninfectious processes. 2. Moderate to large bilateral pleural effusions. 3. Severe hepatic steatosis with possible superimposed edema in the proper clinical setting. 4. NG tube tip near the GE junction. Recommend advancement several centimeters. 5. Age indeterminant T6 compression deformity with near complete height loss anteriorly and accentuated kyphosis at that level. KUB 10/10: IMPRESSION: Oral gastric tube tip projects in the region of the stomach Diffuse small bowel air with mild dilatation favoring ileus CXR 10/11: IMPRESSION: 1. Lines/ tubes/ devices: NG tube tip overlies gastric body. 2. Lungs and Pleura: There are diffuse reticular nodular infiltrates, unchanged from prior exam. Small bilateral pleural effusions are resolved. 3. Heart and mediastinum: Normal cardiomediastinal margin. 4. Bones: Thoracic degenerative spondylosis. KUB 10/11: FINDINGS: Bilateral lower lobe interstitial opacities. Linear radiopaque densities overlie the left upper abdomen uncertain significance. NG tube tip overlies gastric body. The bowel gas pattern is unremarkable. No renal or ureteral calculi. There is no organomegaly. The osseous structures are normal. IMPRESSION: NG tube tip overlies gastric body. No acute abdominal process. CXR 10/13- IMPRESSION: Diffuse bilateral reticulonodular infiltrates, unchanged. The NG tube has been removed. Cultures: Bcx 10/02 - NG5D UCx 10/02 - negative C diff - negative COVID19 - negative Gram stain 10/09 - Many PMNs, no organisms Thora labs - Many PMNs, no organisms Fungal stain - no fungal elements AFB stain - no acid fast bacilli GI PCR Panel - negative Respiratory PCR - negative Assessment and Plan: Principal Problem: GI bleed Active Problems: Sepsis (HCC) Acute respiratory failure with hypoxia (HCC) COPD (chronic obstructive pulmonary disease) ([facility]) Tobacco abuse Chronic alcohol use Acute midline thoracic back pain Elevated serum creatinine Shock ([facility]) Resolved Problems: * No resolved hospital problems. * Acute Hypoxic respiratory failure - Previous CTA chest at [facility] was negative for a PE. Respiratory workup diop negative - Initial COVID 19 test at [facility] negative. Repeat COVID-19 negative. - Previous Procalcitonin 1.82>0.26>0.15 - WBC 18.6 today, downtrending from 29.8 - Started on NIV s/p thoracentesis, transitioned to HFNC - Was temporarily placed back on NIV yesterday AM, currently tolerating HFNC - CXR 10/11 shows diffuse bilateral pleural effusions. - ID following - infectious workup negative so far - S/p Zosyn, cefepime, flagyl, meropenem, doxy - S/p RT and LT Thoracentesis with 900mL drained from each side and sent for studies -- Many PMNs, no organisms - Continue Lasix 40 mg IV daily - had good response, place jensen for more accurate I/Os - D/c'd IVF - Continue Solumedrol 40 mg daily - Precedex drip added for sedation - Seroquel nightly - Ativan PRN added for breakhrough - Currently on HFNC FiO2 35%, 30 L - Palliative consulted for GOC and code status discussion Ileus - Had multiple watery BMs while on floor and after transfer to unit. Now having no BMs. - Has pulled NG multiple times. - KUB 10/12 read as unremarkable bowel gas pattern. However appears more distended. - Tube feeds increased to goal - 40 ml/hr - no episodes of emesis - If able to take PO, OK to stop tube feeds - BG in low-mid 200s since increasing tube feeds - Now switched to PO - coding spec consulted Severe Malnutrition - Albumin consistently low on admission - Phosphorus low at replaced as needed, f/u repeat Phosphorus - Possible cause of the ascities / effusions - Now switched to PO - coding spec consulted - Monitor for refeeding syndrome Hyperglycemia - BS elevated in 200s - Was previously on tube feeds trickle at first but stepped up to goal (Immune Enhancing). Kept pulling out NG - Now switched to PO diet - On LDSSI Alcohol abuse - Used to drink ~10-15 drinks per day, according to son today - Has been admitted in the hospital for 9 days now - Low likelihood of withdrawal at this point GI bleed (resolved) - No evidence of active GI bleed - S/P EGD 10/04 that showed esophagitis / linear ulcerative area in stomach that was clipped (4) andinjected with epi - Continue to monitor Colitis - Recent C. Diff and GI PCR negative GI Prophylaxis: pantoprazole 40mg BID DVT Prophylaxis: SCDs - recent GIB Associated attestation - Sherry Suarez MD - 10/14/2019 2:44 PM EDT I have personally performed a [id number] diagnostic evaluation on this patient on date of service10/14/19. History, labs, imaging studies, and electronic medical record have been reviewed by me. This note documented by the [x]powerhouse operator []JAMAL reflects my history, exam, and medical decision making. I have reviewed and agree with the care plan. Changes were made in the orders as necessary. ROSdocumentation was reviewed and negative unless otherwise stated in HPI. Assessment: - acute on chronic hypoxic respiratory failure - bilateral multifocal pulmonary infiltrates: infectious vs edema - acute metabolic encephalopathy / delirium - bilateral pleural effusions - colitis: suspect infectious etiology - diarrhea 2/2 above: resolved - UGIB 2/2 gastric ulcer s/p EGD w/clips 10/04 - malnutrition/cachexia, recent ileus - COPD Plan: - continue lasix 40 mg IV daily as renal function allows - place jensen for accurate I+O with goal net negatives with diuresis (also desats with movements/exertion) - NGT out again (pulled) will leave out as passed RESEARCH AIDE eval and trial cautious PO diet as long as respiratory status stable. May still need NGT vs PEG for malnutrition if c/w GOC - continue precedex gtt, overall less ups/downs with her mental status since starting. Also has PRNativan (frequent anxiety episodes) and PRN dilaudid (chronic pain issues as well as air hunger/dyspnea) - add scheduled seroquel 25 mg qHS (qTC WNL) to help wean precedex gtt - phos replaced, monitoring refeeding syndrome - continue HFNC, weaning as able - off abx per ID, monitor clinically - schedule miralax daily (no BM but may be in part 2/2 low ins with inturrupted TFs and poor PO intake) - palliative care consult: FTT, malnutrition/cachexia, debility and functional decline, COPD now with trouble weaning resp support, sx management, code status discussions Total critical care time caring for this patient with life threatening, unstable organ failure, including direct patient contact, management of life support systems, review of data including imaging and labs, discussions with other team members and physicians at least 35 min so far today, excludingprocedures. * Russell Melara MD - 10/13/2019 11:07 PM EDT Progress Note [facility] Patient - Dory Basurto, Age - 64 y.o. - 1955 Room Number - [id number] [facility] - [id number] Date of Admission - 10/03/2019 2:19 AM ASSESSMENT 1. Resolved Hypovolemic vs Septic Shock 2. Bilateral multifocal pulmonary infiltrates: pneumonia vs edema 3. Bilateral pleural effusions s/p thoracentesis, culture negative. 4. Colitis suspect infectious 5. UGIB secondary to gastric ulcer s/p EGD with clips 10/04 6. Urinary Tract Infection- culture negative 7. Leukocytosis 8. COPD on Home O2 9. Diarrhea, stool studies negative. May be antibiotic related from the Zosyn versus less likely due to C. difficile as a test was -4 days ago. Repeat testing negative 10. Malnutrition/cachexia PLAN Agree, will dc all antibiotics as all the cultures are negative as well as pleural fluid gram stain SUBJECTIVE: WBx 26K Somnolent On high flow O2 OBJECTIVE VITALS height is 5' 7 (1.702 m) and weight is 130 lb 15.3 oz (59.4 kg). Her temporal temperature is 99.9 F (37.7 C). Her blood pressure is 125/72 and her pulse is 67. Her respiration is 21 and oxygen saturation is 100%. Temp (24hrs), Av.6 F (37 C), Min:98 F (36.7 C), Max:99.9 F (37.7 C) General Appearance: Alert, NAD HEENT: wnl Neck: Supple Lungs: diminished bilateral unlabored on HFNC Cardiovascular: RRR Abdomen: Soft NT, ND, BS+ + NGT in place : no CVAT. No jensen Neurologic: alert and oriented, no focal deficits Skin: No rashes Extremities: No edema, No joint inflammation Lines: sites clean MEDICATIONS: [START ON 10/14/2019] furosemide 40 mg Intravenous Daily [START ON 10/14/2019] methylPREDNISolone 40 mg Intravenous Daily insulin lispro 0-6 Units Subcutaneous Q6H insulin lispro 0-3 Units Subcutaneous Nightly ipratropium-albuterol 1 ampule Inhalation Q4H sodium chloride flush 10 mL Intravenous 2 times per day miconazole Topical BID pantoprazole 40 mg Intravenous BID And sodium chloride (PF) 10 mL Intravenous BID [Held by provider] lactulose 30 g Oral BID lidocaine 1 patch Transdermal Daily thiamine 100 mg Intravenous Daily folic acid IVPB 1 mg Intravenous Daily dexmedetomidine 0.3 mcg/kg/hr (10/13/191810) dextrose LABS: CBC: Recent Labs 10/11/19 1837 10/12/19 0728 10/13/19219 WBC 29.8* 28.4* 26.3* HGB 10.2* 9.9* 9.5* PLT 374 400 453* BMP: Recent Labs 10/12/19200710/13/19 02210/13/19 0937 NA 141 139 140 K 3.5 3.8 3.8 CL 107 107 109* CO2 26 27 28 BUN 6* 5* 5* CREATININE 0.33* 0.24* 0.21* GLUCOSE 238* 244* 202* Hepatic: Recent Labs 10/11/19 0104 10/12/19 0410 10/13/19219 ALKPHOS 99 129* 110 ALT 17 20 20 AST 43 37 37 PROT 5.0* 5.3* 5.0* BILITOT 1.1 0.7 0.6 LABALBU 2.4* 2.5* 2.4* Lactic Acid: No results for input(s): LACTA in the last 72 hours. MICROBIOLOGY: No results for input(s): BC in the last 72 hours. IMAGING: reviewed [facility] 10/13/2019 11:09 PM * Tierney White MD - 10/13/2019 7:09 AM EDT ICU Progress Note Dory Basurto : 1955(64 y.o.) Date: October 13, 2019 Team: ICU Attending: Dr. Suarez Chief Complaint: SOB Subjective: Last night patient agitated and pulled out NG/PIV. NG was replaced and tube feeds restarted. Minimal UOP and bladder scan showed 150 mL retained. A 500mL NS bolus was given and patient had episode ofincontinence. No BM overnight and no episodes of emesis. She remained on HFNC overnight. Ativan wasgiven for agitation. Patient seen this morning, drowsy but alert to verbal stimuli. Responding appropriately. Denies abdpain. In restraints. Remains hemodynamically stable. Review of Systems Unable to perform ROS: Mental status change Scheduled Meds: insulin lispro 0-6 Units Subcutaneous Q6H insulin lispro 0-3 Units Subcutaneous Nightly meropenem 1 g Intravenous Q8H doxycycline monohydrate 100 mg Oral 2 times per day ipratropium-albuterol 1 ampule Inhalation Q4H sodium chloride flush 10 mL Intravenous 2 times per day methylPREDNISolone 40 mg Intravenous Q6H miconazole Topical BID pantoprazole 40 mg Intravenous BID And sodium chloride (PF) 10 mL Intravenous BID [Held by provider] lactulose 30 g Oral BID lidocaine 1 patch Transdermal Daily thiamine 100 mg Intravenous Daily folic acid IVPB 1 mg Intravenous Daily Continuous Infusions: dextrose Objective: VITALS: BP 111/70 Pulse 100 Temp 98.2 F (36.8 C) (Temporal) Resp 20 Ht 5' 7 (1.702 m) Wt130 lb 15.3 oz (59.4 kg) SpO2 93% BMI 20.51 kg/m CURRENT PULSE OXIMETRY: SpO2: 93 % I/O: 10/11 0701 - 10/12 0700 In: 2523 [I.V.:2232] Out: 250 [Urine:250] Ventilator Settings: Vent Mode: AC/VC+ Rate Set: 12 bmp Vt Ordered: 400 mL Pressure Support: 0 cmH20 PEEP/CPAP: 8 FiO2 : 55 % Oxygen Delivery - O2 Flow Rate (L/min): 45 L/min Invasive Lines and Dates: Jensen Intubation Date: N/A General Appearance: []WDWN []Obese [x]Cachectic []Thin [x]ill Skin: Temperature [x]Warm []Cool Rash []Yes [x]No Tattoo(s) []Yes [x]No HEENT: Pupils round and react [x]Yes []No Sclera []Icteric []Non-Icteric Conjunctiva []Injected [x]Non-Injected Pinnae [x]Normal []Other Dentitian [][place] Teeth []Dentures Oral Mucosa [x][place] [x]Moist []Dry Oral ETT []Present [x]Absent Neck: Trachea midline [x]Yes []No Thyromegaly []Yes []No Crepitus []Present [x]Absent Jvd []Present [x]Absent Lungs: []Clear []Crackles []Wheezes [x]Rhonchi, bilateral Respiratory effort []Labored [x]Non-Labored Heart: Rate [x]Regular []Irregular []Tachycardia []Bradycardia Rhythm [x]Regular []Irregular Murmur []Present [x]Absent Peripheral Edema []Present [x]Absent Abdomen: [x]Soft Bowel Sounds [x]Present []Absent []Tender [x]Non-Tender []Distended []Non-distended Hernia []Present [x]Absent Organomegaly []Present [x]Absent []Scar Extremities: Cyanosis []Present [x]Absent STEELE ([x]RUE [x]RLE [x]LUE [x]LLE) Neurologic: SHUNGNAK []Yes [x]No Corneal reflexes []Present []Absent Plantar reflexes []Up []Down []Absent Withdraws to tactile []Yes []No Follows Commands [x]Yes []No []Unresponsive to verbal []Cranial nerves grossly intact []Sensation grossly intact Psych: Alert [x]yes []no Oriented []x0 []x1 []x2 [x]x3 Affect []Normal []Flat []Agitated []Anxious []Calm [x]Sedated []NAD [facility] within last 72 hours BMP: Recent Labs 10/12/19 1422 10/12/19200710/13/19 022 NA 144 141 139 K 2.9* 3.5 3.8 CL 113* 107 107 CO2 21* 26 27 BUN 5* 6* 5* CREATININE 0.24* 0.33* 0.24* CALCIUM 6.6* 7.6* 7.3* MG 1.4* 2.6* 2.1 PHOS 2.2* 3.2 2.6 LFTS: Recent Labs 10/11/19 0104 10/12/19 0410 10/13/19 022 AST 43 37 37 ALT 17 PROT 5.0* 5.3* 5.0* LABALBU 2.4* 2.5* 2.4* BILITOT 1.1 0.7 0.6 ALKPHOS 99 129* 110 Glucose: Recent Labs 10/11/19 0104 10/12/19 0410 10/12/19 1249 10/12/19 1422 10/12/19 1901 10/12/19200710/12/19 2031 10/13/19 0220 10/13/19 0225 10/13/19 0605 GLUCOSE 119* 201* -- 195* -- 238* -- 244* -- -- POCGLU -- -- 234* -- 237* -- 230* -- 188* 229* CBC: Recent Labs 10/11/19 1837 10/12/19 0728 10/13/19 022 WBC 29.8* 28.4* 26.3* HGB 10.2* 9.9* 9.5* HCT 32.6* 30.4* 29.3* PLT 374 400 453* MCV 85.8 84.9 83.7 RDW 19.5* 19.8* 19.9* ABGs: Recent Labs 10/10/19 1623 PHART 7.431 IKB6TQC 34.0* PO2ART 54.7* IIM2III 22.1 [id number] 88.9* FIO2A No data Lactic Acid: Recent Labs 10/10/19 1647 LACTA 1.0 INR: Recent Labs 10/12/19 0410 10/13/19 0220 INR 1.2* 1.1 pro-BNP: No results for input(s): NTPROBNP in the last 72 hours. Cardiac Injury Profile: Recent Labs 10/10/19 1647 TROPONINI 0.032 Labs in Last 3 months: Lab Results Component Value Date INR 1.1 10/13/2019 NTPROBNP 1,267 (H) 10/09/2019 Imaging: CXR 10/09: Conclusion(s): 1. Interstitial edema superimposed on asymmetric pneumonitis, predominating on the left. 2. Bilateral pleural effusions and basilar atelectasis, worse on the right. 3. Cardiomegaly. KUB 10/09: IMPRESSION: 1. Suspected ileus, a little worse than on the prior study. NG tube tip now about the level of the GE junction. CT CHEST 10/09: IMPRESSION: 1. Pulmonary emphysema with patchy bilateral peripheral airspace disease suggestive of pneumonia. Imaging features can be seen with (Covid-19) pneumonia, though are nonspecific and can occur with a variety of infectious and noninfectious processes. 2. Moderate to large bilateral pleural effusions. 3. Severe hepatic steatosis with possible superimposed edema in the proper clinical setting. 4. NG tube tip near the GE junction. Recommend advancement several centimeters. 5. Age indeterminant T6 compression deformity with near complete height loss anteriorly and accentuated kyphosis at that level. KUB 10/10: IMPRESSION: Oral gastric tube tip projects in the region of the stomach Diffuse small bowel air with mild dilatation favoring ileus CXR 10/11: IMPRESSION: 1. Lines/ tubes/ devices: NG tube tip overlies gastric body. 2. Lungs and Pleura: There are diffuse reticular nodular infiltrates, unchanged from prior exam. Small bilateral pleural effusions are resolved. 3. Heart and mediastinum: Normal cardiomediastinal margin. 4. Bones: Thoracic degenerative spondylosis. KUB 10/11: FINDINGS: Bilateral lower lobe interstitial opacities. Linear radiopaque densities overlie the left upper abdomen uncertain significance. NG tube tip overlies gastric body. The bowel gas pattern is unremarkable. No renal or ureteral calculi. There is no organomegaly. The osseous structures are normal. IMPRESSION: NG tube tip overlies gastric body. No acute abdominal process. Cultures: Bcx 10/02 - NG5D UCx 10/02 - negative C diff - negative COVID19 - negative Gram stain 10/09 - Many PMNs, no organisms Thora labs - Many PMNs, no organisms Fungal stain - no fungal elements AFB stain - no acid fast bacilli GI PCR Panel - negative Respiratory PCR - negative Assessment and Plan: Principal Problem: GI bleed Active Problems: Sepsis (HCC) Acute respiratory failure with hypoxia (HCC) COPD (chronic obstructive pulmonary disease) (HCC) Tobacco abuse Chronic alcohol use Acute midline thoracic back pain Elevated serum creatinine Shock (HCC) Resolved Problems: * No resolved hospital problems. * Acute Hypoxic respiratory failure - Likely VQ mismatch from recent thoracentesis / lung reexpansion / aspiration. - Previous CTA chest at [facility] was negative for a PE. Respiratory workup diop negative - Initial COVID 19 test at [facility] negative. Repeat COVID-19 negative - Previous Procalcitonin 1.82>0.26>0.15 - WBC 26.3 today, slightly downtrending from 29.8 - Started on NIV s/p thoracentesis, transitioned to HFNC - Was temporarily placed back on NIV yesterday AM, currently tolerating HFNC - CXR 10/10 shows bilateral pleural effusions that are resolved, unchanged diffuse reticular nodularinfiltrates - ID following - S/p Zosyn, cefepime, flagyl - Currently on meropenem and doxy - d/c'd - S/p RT and LT Thoracentesis with 900mL drained from each side and sent for studies -- Many PMNs, no organisms - Lasix 20 IV given yesterday with poor response - started 40 mg daily - Continue Solumedrol 40 q 6 hour - Precedex drip added for sedation Ileus - Had multiple watery BMs while on floor. Still having diarrhea BMs. No BMs overnight. - Has pulled NG multiple times, replaced - KUB today read as unremarkable bowel gas pattern. However appears more distended. - Continue tube feeds @ 20 ml/hr - no episodes of emesis - If able to take PO, OK to stop tube feeds - BG in low-mid 200s since increasing tube feeds - Was also started on solumedrol 40 mg daily Severe Malnutrition - Albumin consistently low on admission - Phosphorus low at replaced as needed, f/u repeat Phosphorus - Possible cause of the ascities / effusions - Licensed Architect consulted - Continue tube feeds - Monitor for refeeding syndrome Alcohol abuse - Used to drink ~10-15 drinks per day, according to son today - Has been admitted in the hospital for 9 days now - Low likelihood of withdrawal at this point GI bleed (resolved) - No evidence of active GI bleed - S/P EGD 10/04 that showed esophagitis / linear ulcerative area in stomach that was clipped (4) andinjected with epi - Continue to monitor Elevated INR - Likely multifactorial with ETOH abuse & decreased nutritional intake - INR 1.2 Colitis - Recent C. Diff and GI PCR negative GI Prophylaxis: pantoprazole 40mg BID DVT Prophylaxis: SCDs - recent GIB Associated attestation - Sherry Suarez MD - 10/14/2019 1:15 PM EDT I have personally performed a [id number] diagnostic evaluation on this patient on date of service10/13/19. History, labs, imaging studies, and electronic medical record have been reviewed by me. This note documented by the [x]powerhouse operator []JAMAL reflects my history, exam, and medical decision making. I have reviewed and agree with the care plan. Changes were made in the orders as necessary. ROSdocumentation was reviewed and negative unless otherwise stated in HPI. Assessment: - acute on chronic hypoxic respiratory failure - bilateral multifocal pulmonary infiltrates: infectious vs edema - acute metabolic encephalopathy / delirium - bilateral pleural effusions - colitis: suspect infectious etiology - diarrhea 2/2 above: resolved - UGIB 2/2 gastric ulcer s/p EGD w/clips 10/04 - malnutrition/cachexia, recent ileus - COPD Plan: - low UOP got IVFB. No real response to 20 mg IV lasix yesterday: d/c IVF and dose lasix 40 mg IV, keep dry as renal function tolerates - diarrhea resolved, now has not had BM in several days but little PO intake and resumed TF: monitor abdominal exam (benign), imaging as needed to r/o ileus - increase TF to goal today (40 mL/hr), monitor for nausea/vomiting w/hx ileus - mental status continues to wax/wane and already aspiration risk: make NPO for now as able to increase TF - precedex gtt to keep fluctuations in mental status to minimum (with PRNs she is fluctuating between agitated and pulling lines and other times somnolent) - qTC normal - wean steroids - d/w ID re: abx: d/c doxy (as interferes with tube feeds). Likely can de- escalate LRTI and colitiscoverage at this time - respiratory status still tenuous on 55% O2 via HFNC: continue to monitor in ICU Total critical care time caring for this patient with life threatening, unstable organ failure, including direct patient contact, management of life support systems, review of data including imaging and labs, discussions with other team members and physicians at least 35 min so far today, excludingprocedures. * Felix Davis MD - 10/12/2019 5:23 PM EDT Progress Note [facility] Patient - Dory Basurto, Age - 64 y.o. - 1955 Room Number - [id number] [facility] - [id number] Date of Admission - 10/03/2019 2:19 AM ASSESSMENT 1. Resolved Hypovolemic vs Septic Shock 2. Bilateral multifocal pulmonary infiltrates: pneumonia vs edema 3. Bilateral pleural effusions s/p thoracentesis, culture negative. 4. Colitis suspect infectious 5. UGIB secondary to gastric ulcer s/p EGD with clips 10/04 6. Urinary Tract Infection- culture negative 7. Leukocytosis 8. COPD on Home O2 9. Diarrhea, stool studies negative. May be antibiotic related from the Zosyn versus less likely due to C. difficile as a test was -4 days ago. Repeat testing negative 10. Malnutrition/cachexia PLAN Continue meropenem and PO Doxy DC IV flagyl and oral vanc, cdiff negative Follow WBC, up to 29, started on solumedrol Wean O2 Follow pleural cultures SUBJECTIVE: Afebrile. Feels ok, tired wants to rest. Currently on :HFNC, denies sob/cough/cp. Denies abdominal pain, diarrhea seems to be slowing. cdiff negative Right thoracentesis yesterday, cc 626. CXR reviewed NGT in place for tube feeds Wbc 26>29>28. OBJECTIVE VITALS height is 5' 7 (1.702 m) and weight is 104 lb 0.9 oz (47.2 kg). Her temporal temperature is 98 F (36.7 C). Her blood pressure is 106/72 and her pulse is 104. Her respiration is 19 and oxygen saturation is 96%. Temp (24hrs), Av.8 F (36.6 C), Min:97 F (36.1 C), Max:98.2 F (36.8 C) General Appearance: Alert, NAD HEENT: wnl Neck: Supple Lungs: diminished bilateral unlabored on HFNC Cardiovascular: RRR Abdomen: Soft NT, ND, BS+ + NGT in place : no CVAT. No jensen Neurologic: alert and oriented, no focal deficits Skin: No rashes Extremities: No edema, No joint inflammation Lines: sites clean MEDICATIONS: insulin lispro 0-6 Units Subcutaneous Q6H insulin lispro 0-3 Units Subcutaneous Nightly potassium phosphate IVPB 40 mmol Intravenous Once magnesium sulfate 4 g Intravenous Once meropenem 1 g Intravenous Q8H doxycycline monohydrate 100 mg Oral 2 times per day ipratropium-albuterol 1 ampule Inhalation Q4H sodium chloride flush 10 mL Intravenous 2 times per day methylPREDNISolone 40 mg Intravenous Q6H miconazole Topical BID pantoprazole 40 mg Intravenous BID And sodium chloride (PF) 10 mL Intravenous BID [Held by provider] lactulose 30 g Oral BID lidocaine 1 patch Transdermal Daily thiamine 100 mg Intravenous Daily folic acid IVPB 1 mg Intravenous Daily dextrose LABS: CBC: Recent Labs 10/11/19 01010/11/19 1837 10/12/19 0728 WBC 26.9* 29.8* 28.4* HGB 10.8* 10.2* 9.9* PLT 299 374 400 BMP: Recent Labs 10/11/19 01010/12/19 0410 10/12/19 1422 NA 141 143 144 K 3.9 3.4* 2.9* CL 108* 110* 113* CO2 19* 19* 21* BUN 3* 6* 5* CREATININE 0.29* 0.37* 0.24* GLUCOSE 119* 201* 195* Hepatic: Recent Labs 10/11/1910310/12/19 0410 ALKPHOS 99 129* ALT 17 20 AST 43 37 PROT 5.0* 5.3* BILITOT 1.1 0.7 LABALBU 2.4* 2.5* Lactic Acid: Recent Labs 10/10/19 1647 LACTA 1.0 MICROBIOLOGY: No results for input(s): BC in the last 72 hours. IMAGING: reviewed [facility] Pager: [phone] 10/12/2019 5:33 PM I personally saw and evaluated the patient. I reviewed the nurse practitioner note. I agree w theirassessment and plan unless otherwise noted. [facility] 10/12/2019 * Azra Breen OT - 10/12/2019 11:53 AM EDT Occupational Therapy Occupational Therapy Initial Assessment Date: 10/12/2019 Patient Name: Dory Basurto : 1955 Date of Service: 10/12/2019 Discharge Recommendations: Continue to assess pending progress This provider wore an N95, face shield, and gloves during the treatment session. Assessment Performance deficits / Impairments: Decreased functional mobility ;Decreased balance;Decreased ADL status;Decreased cognition;Decreased endurance;Decreased high-level IADLs;Decreased sensation;Decreased strength Assessment: Pt presents with performance deficits listed above. Pt unsafe to return home alone at this time. Pt with requiring min A for LB dressing, and min A x2 person for sit<->stand and stand step transfers. Recommend continue to assess pending progress due to pt currently being aerobically compromised which is limiting her functional mobility and independent with ADL's. Prognosis: Fair Decision Making: Low Complexity OT Education: OT Role;Orientation;Precautions;ADL Adaptive Strategies;Transfer Training;Plan of Care;IADL Safety REQUIRES OT FOLLOW UP: Yes Activity Tolerance Activity Tolerance: Patient Tolerated treatment well Safety Devices Safety Devices in place: Yes Type of devices: All fall risk precautions in place;Gait belt;Patient at risk for falls;Call light within reach;Left in chair;Nurse notified;Chair alarm in place Patient Diagnosis(es): There were no encounter diagnoses. has a past medical history of COPD (chronic obstructive pulmonary disease) (HCC). has a past surgical history that includes eye surgery. Restrictions Restrictions/Precautions Restrictions/Precautions: Fall Risk Required Braces or Orthoses?: No Subjective General Chart Reviewed: Yes Patient assessed for rehabilitation services?: Yes Family / Caregiver Present: No Diagnosis: GI bleed; septic shock, UTI, hospital-acquired PNA, large L pleural effusion, ileus Subjective Subjective: Pt supine in bed upon entry, agreeable to OT Patient Currently in Pain: No Social/Functional History Social/Functional History Lives With: Alone Type of Home: Trailer Home Layout: One level Home Access: Stairs to enter with rails Entrance Stairs - Number of Steps: 4 Entrance Stairs - Rails: Both Bathroom Shower/Tub: Walk-in shower Bathroom Toilet: Standard Bathroom Equipment: Grab bars around toilet Bathroom Accessibility: Accessible Home Equipment: Grab bars Receives Help From: Friend(s) ADL Assistance: Independent Homemaking Assistance: Needs assistance Homemaking Responsibilities: Yes Ambulation Assistance: Independent Transfer Assistance: Independent Active Biller: (hasn't driven since April) Mode of Transportation: Car 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 Additional Comments: Pt reports she does order take out a lot, and also has a dog Kelly Objective Vision: Impaired Vision Exceptions: Wears glasses at all times Hearing: Within functional limits Orientation Overall Orientation Status: Within Functional Limits Observation/Palpation Posture: Poor Balance Sitting Balance: Stand by assistance Standing Balance: Minimal assistance Functional Mobility Functional Mobility Comments: Treatment: Pt completed bed mobility with supervision and increased time. Upon sitting EOB pt very dizzy and SOB, HR increased to 157bpm and SpO2 decreased to 91%. Pt requiring increased time for vitals to return to baseline. Sit<->stand transfer from EOB with stand step transfer to recliner with min A x2 person and verbal cues for hand placement. Pt very fearful of falling prior to standing but completed transfer with encouragement. ADL LE Dressing: Minimal assistance(simulated ability to don/doff bilateral socks while seated in recliner) Tone RUE RUE Tone: Normotonic Tone LUE LUE Tone: Normotonic Coordination Movements Are Fluid And Coordinated: No Coordination and Movement description: Gross motor impairments;Decreased speed Bed mobility Supine to Sit: Supervision Scooting: Supervision Comment: Increased time to complete bed mobility, once sitting EOB pt very dizzy and SOB, HR up to 157bpm and SpO2 decreased to 91%, increased time to recover to baseline vitals. Transfers Stand Step Transfers: Minimal assistance;2 Person assistance Sit to stand: Minimal assistance;2 Person assistance Stand to sit: Minimal assistance;2 Person assistance Transfer Comments: Pt fearful of falling Vision - Basic Assessment Prior Vision: Wears glasses all the time Cognition Overall Cognitive Status: WFL Cognition Comment: Pt makes unrelated comments throughout session and appears confused at times. Perception Overall Perceptual Status: WFL Sensation Overall Sensation Status: WFL LUE AROM (degrees) LUE AROM : WFL RUE AROM (degrees) RUE AROM : WFL LUE Strength LUE Strength Comment: 4+/5 RUE Strength RUE Strength Comment: 4+/5 Plan Plan Times per week: 3-5 Plan weeks: 2 Current Treatment Recommendations: Strengthening, Safety Education & Training, Balance Training, Patient/Caregiver Education & Training, Self-Care / ADL, Cognitive/Perceptual Training, Functional Mobility Training, Equipment Evaluation, Education, & procurement, Home Management Training, Endurance Training OutComes Score AM-[facility] Daily Activity Inpatient How much help for putting on and taking off regular lower body clothing?: A Little How much help for Bathing?: A Lot How much help for Toileting?: Total How much help for putting on and taking off regular upper body clothing?: A Little How much help for taking care of personal grooming?: None How much help for eating meals?: None AM-[facility] Inpatient Daily Activity Raw Score: 17 AM-[facility] Inpatient ADL T-Scale Score : 37.26 ADL Inpatient CMS 0-100% Score: 50.11 ADL Inpatient CMS G-Code Modifier : CK Goals Short term goals Time Frame for Short term goals: 2 weeks Short term goal 1: LB dressing, mod I Short term goal 2: Toilet transfer, mod I Short term goal 3: Toilet task, deya-care, mod I Short term goal 4: Dynamic standing task for 2-3 minutes with good standing balance Patient Goals Patient goals : none stated Therapy Time Individual Concurrent Group Co-treatment Time In 1000 Time Out 1025 Minutes 25 Timed Code Treatment Minutes: 10 Minutes(funct act-1) Patient's Occupational Therapy Plan [facility]. Goals and/or treatment plan was established in collaboration with patient/family/other representatives. Azra Breen OTR/L * Janelle Whitney, PT - 10/12/2019 11:05 AM EDT Physical Therapy Facility/Department: [facility] ICU T3 Re-eval NAME: Dory Basurto : 1955 Date of Service: 10/12/2019 Discharge Recommendations: Continue to assess pending progress, Subacute/Jail Facility, LTACH Assessment Body structures, Functions, Activity limitations: Decreased functional mobility ;Decreased strength;Decreased endurance;Decreased safe awareness;Decreased balance Assessment: Pt motivated to improve, at times makes off the wall comments that dont pertain to current situation (questionable delirium starting?). Pt currently requires min assist x 2 for safe basicfunctional mobility, pt also aerobically compromised with basic functional mobility which limits discharge plan-currently rec facility based therapy at this time. Goals reviewed and will continue towards established goals from initial eval. Prognosis: Good;Fair Decision Making: Medium Complexity REQUIRES PT FOLLOW UP: Yes Activity Tolerance Activity Tolerance: Patient limited by endurance Patient Diagnosis(es): There were no encounter diagnoses. has a past medical history of COPD (chronic obstructive pulmonary disease) (HCC). has a past surgical history that includes eye surgery. Restrictions Restrictions/Precautions Restrictions/Precautions: Fall Risk Required Braces or Orthoses?: No Vision/Hearing Subjective General Chart Reviewed: Yes Patient assessed for rehabilitation services?: Yes Additional Pertinent Hx: COPD, chronic anemia, chronic EtOH use Family / Caregiver Present: No Diagnosis: septic shock, UTI, hospital-acquired PNA, large L pleural effusion, ileus General Comment Comments: NG, HFNC 55% 35L Subjective Subjective: Pt awake in bed, just finished with Speech Therapy. Pt agreeable and motivated to get OOB. RHR mid 90s with SpOe ranging from 94-97% Pain Screening Patient Currently in Pain: No Vital Signs Patient Currently in Pain: No Orientation Orientation Orientation Level: Disoriented to time;Oriented to person;Oriented to situation Social/Functional History Social/Functional History Lives With: Alone Type of Home: Trailer Home Layout: One level Home Access: Stairs to enter with rails Entrance Stairs - Number of Steps: 4 Entrance Stairs - Rails: Both Bathroom Shower/Tub: Tub/Shower unit Bathroom Toilet: Standard Bathroom Equipment: Grab bars in shower Bathroom Accessibility: Accessible Home Equipment: (n/a) Receives Help From: Friend(s) ADL Assistance: Independent Homemaking Assistance: Needs assistance Homemaking Responsibilities: No Ambulation Assistance: Independent Transfer Assistance: Independent Active Biller: Yes Mode of Transportation: Car 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 States she primarily microwaves. Notes she does stand for shower and grab bars are only around toilet. She was driving until recently. Additional Comments: Pt reports she ordered out to eat a lot, cares for her dog Kelly Cognition Objective PROM RLE (degrees) RLE PROM: WFL AROM RLE (degrees) RLE AROM: WFL PROM LLE (degrees) LLE PROM: WFL AROM LLE (degrees) LLE AROM : WFL Strength RLE Comment: functionally 3+/5 Strength LLE Comment: functionally 3+/5 Bed mobility Supine to Sit: Supervision Scooting: Supervision Comment: incr time to complete task; once sitting EOB pt very dizzy and SOB, HR up to 157bpm and SpO2 decr to 91%, incr time to recover to baseline vitals Transfers Sit to Stand: Minimal Assistance;2 Person Assistance Stand to sit: Minimal Assistance;2 Person Assistance Bed to Chair: Minimal assistance;2 Person Assistance Comment: Pt adamant about doing as much as she can for herself Ambulation Ambulation?: No Balance Sitting - Static: Good Sitting - Dynamic: Good;- Standing - Static: Fair Standing - Dynamic: Fair;- Plan Plan Times per week: 5 Plan weeks: 2 Current Treatment Recommendations: Strengthening, ROM, Balance Training, Functional Mobility Training, Transfer Training, Endurance Training, Gait Training Safety Devices Type of devices: Left in chair, Call light within reach, Nurse notified, Gait belt, Patient at riskfor falls, All fall risk precautions in place G-Code OutComes Score AM-PAC Score Goals Short term goals Time Frame for Short term goals: 2 weeks Short term goal 1: Bed mobility CGA Short term goal 2: Transfers min of 1 Short term goal 3: Amb, device, 25', min of 1 Short term goal 4: Stand 2 minutes, device, dynamic UE activity, supv Short term goal 5: Increase antigravity strength to 3+/5 cathy (hip extn, knee extn, Hip ABD) Patient Goals Patient goals : be able to eat Therapy Time Individual Concurrent Group Co-treatment Time In 1000 Time Out 1026 Minutes 26 Timed Code Treatment Minutes: 9 Minutes This PT wore an N95 mask, goggles & gloves during entire PT eval/Rx. Patient s Physical Therapy Plan of Care supervision is transferred to [facility] Rehab Department Physical Therapist. Goals and/or treatment plan was established in collaboration with patient/family/other representatives. Janelle Whitney, PT * Jeannette Ang, RESEARCH AIDE - 10/12/2019 10:19 AM EDT Speech Language Pathology Facility/Department: [facility] ICU T3 CLINICAL BEDSIDE SWALLOW EVALUATION NAME: Dory Basurto : 1955 ADMISSION DATE: 10/03/2019 ADMITTING DIAGNOSIS: has GI bleed; Sepsis (HCC); Acute respiratory failure with hypoxia (HCC); COPD(chronic obstructive pulmonary disease) (HCC); Tobacco abuse; Chronic alcohol use; Acute midline thoracic back pain; Elevated serum creatinine; and Shock (HCC) on their problem list. ONSET DATE: 10/03/2019 Recent Chest Xray/CT of Chest: IMPRESSION: 1. Lines/ tubes/ devices: NG tube tip overlies gastric body. 2. Lungs and Pleura: Thereare diffuse reticular nodular infiltrates, unchanged from prior exam. Small bilateral pleural effusions are resolved. 3. Heart and mediastinum: Normal cardiomediastinal margin. 4. Bones: Thoracic degenerative spondylosis. Date of Eval: 10/12/2019 Evaluating Therapist: Jeannette Ang Current Diet level: Current Diet : NPO Current Liquid Diet : NPO Pain: None noted per pt Reason for Referral Dory Basurto was referred for a bedside swallow evaluation to assess the efficiency of her swallow function, identify signs and symptoms of aspiration and make recommendations regarding safe dietary consistencies, effective compensatory strategies, and safe eating environment. Per GI Notes: HISTORY OF PRESENT ILLNESS: The patient is a 63 y.o. female with significant past medical history of COPD and tobacco abuse whopresents with 3-4 weeks of generalized weakness, malaise, melena, and diarrhea. She endorses havingup to 10 episodes of melanotic diarrhea daily during this time associated with some fecal incontinence. She states she did not seek medical attention because the melena was intermittent. She denies constipation, hematochezia, rectal pain/itching. She has had intermittent sharp bilateral lower quadrant abdominal pain during this time and is unable to identify any triggers. She has had decreased appetite and PO intake but is unsure if she has lost any weight. She has had nausea and some dry heaving but no emesis or hematemesis. She endorses intermittent dyspepsia which is new over the past few weeks but no dysphagia or odynophagia. Denies recent travel or change in diet. She has had subjective fevers and chills but no known sick contacts. She states she's gradually declined over the past month and has had worsening generalized weakness and difficulty walking. Eventually her neighbor brought her to the ED. She denies any history of GIB and family hx of GI cancers. She has never had a colonoscopy. She is a current ppd smoker and drinks 3-4 beers daily. Patient initially presented to [facility]. In the ED initial workup was significant for Hgb 6.8, leukocytosis 21, lactic acidosis 5.8, borderline hypotension and tachycardia. Patient was given IVF and 1U pRBC before being transferred to [facility]. Here repeat labs demonstrated Hgb 6.1, [id number]. 2U pRBC ordered and patient admitted to [facility] where she remains hypotensive. Impression Dysphagia Impression : No concern for dysphagia clinically. Regular textures, thin liquid diet. Treatment Plan Requires RESEARCH AIDE Intervention: No Duration/Frequency of Treatment: n/a Recommended Diet and Intervention Diet Solids Recommendation: Regular Liquid Consistency Recommendation: Thin Recommended Form of Meds: PO General Chart Reviewed: Yes Comments: Pt sleeping; easily awakened; pleasant and cooperative Respiratory Status: O2 via nasual cannula(Intubated 10/05/2019-10/07/2019) Breath Sounds: Clear;Diminished O2 Device: High flow nasal cannula Liters of Oxygen: (55L/min, 80% FiO2) Communication Observation: Functional Follows Directions: Complex Dentition: Dentures bottom;Dentures top Patient Positioning: Upright in bed Baseline Vocal Quality: Normal Volitional Cough: (+cough on command) Prior Dysphagia History: Pt denies hx dysphagia; no prior dysphagia hx per available records Consistencies Administered: Ice Chips;Thin - straw;Dysphagia Pureed (Dysphagia I);Reg solid Oral Mechanism/Cranial Nerve Exam Pt passed oral mechanism/cranial nerve exam for CN V, CN VII, CN IX/X, CN XI and CN XII. Oral Phase Dysfunction Oral Phase Oral Phase: WFL Indicators of Pharyngeal Phase Dysfunction Pharyngeal Phase Pharyngeal Phase: WFL Prognosis Individuals consulted Consulted and agree with results and recommendations: Patient;RN Education Patient Education: d/w pt, RN Patient Education Response: Verbalizes understanding Safety Devices in place: Yes Type of devices: Nurse notified;Call light within reach;Left in bed Therapy Time RESEARCH AIDE Individual Minutes Time In: 0940 Time Out: 1000 Minutes: 20 RESEARCH AIDE Total Treatment Time Timed Code Treatment Minutes: 20 Minutes Total Treatment Time: 20 Jeannette Ang MA, CCC-RESEARCH AIDE 10/12/2019 10:19 AM An N95 mask, a full face shield and gloves were worn throughout this session. * Sivan Carlson, DO - 10/12/2019 6:19 AM EDT ICU Progress Note Dory Basurto : 1955(64 y.o.) Date: October 12, 2019 Team: ICU Attending: Dr. Suarez Chief Complaint: SOB Subjective: Overnight/AM events: Originally transferred back to floors a couple of days ago for worsening SOB on 6L nasal cannula. Pt did have fever and elevated WBC prior to transfer. Overnight, Pt pulled out NG tube. It has been replaced this AM. Patient seen and examined this morning and was originally uncomfortable in bed.. Pt complaining of back pain this morning but no other complaints. Tylenol given. Plan to avoid narcotics given her recent ileus history. CT chest on 10/09 showed pulmonary emphysema with patchy bilateral peripheral airspace suggestive ofpneumonia, bilateral pleural effusions. CXR today 10/11 shows resolution of pleural effusions. KUB today 10/11 shows improvement of ileus. Pt has been having multiple episodes of diarrhea (negative forC. Diff). Left and right thoracentesis completed with 900 cc drained on each side. Upon re-evaluation of pt in the afternoon, her back pain has improved with Tylenol. She has been transitioned off NIV and now on HFNC (55). Hemodynamically stable, non-labored breathing. Review of Systems Constitutional: Negative for appetite change, diaphoresis and fever. HENT: Negative for congestion and sore throat. Respiratory: Negative for cough, chest tightness, shortness of breath and wheezing. Cardiovascular: Negative for chest pain and leg swelling. Gastrointestinal: Negative for abdominal pain, constipation, diarrhea, nausea and vomiting. Genitourinary: Negative for difficulty urinating, dysuria, flank pain, frequency and urgency. Musculoskeletal: Positive for back pain. Negative for arthralgias, myalgias and neck pain. Skin: Negative for rash. Neurological: Negative for dizziness and headaches. Psychiatric/Behavioral: Negative for confusion. Scheduled Meds: insulin lispro 0-6 Units Subcutaneous Q6H insulin lispro 0-3 Units Subcutaneous Nightly meropenem 1 g Intravenous Q8H doxycycline monohydrate 100 mg Oral 2 times per day ipratropium-albuterol 1 ampule Inhalation Q4H sodium chloride flush 10 mL Intravenous 2 times per day methylPREDNISolone 40 mg Intravenous Q6H miconazole Topical BID pantoprazole 40 mg Intravenous BID And sodium chloride (PF) 10 mL Intravenous BID [Held by provider] lactulose 30 g Oral BID lidocaine 1 patch Transdermal Daily thiamine 100 mg Intravenous Daily folic acid IVPB 1 mg Intravenous Daily Continuous Infusions: dextrose Objective: VITALS: BP 114/72 Pulse 138 Temp 97 F (36.1 C) (Temporal) Resp 14 Ht 5' 7 (1.702 m) Wt 104 lb 0.9 oz (47.2 kg) SpO2 96% BMI 16.30 kg/m CURRENT PULSE OXIMETRY: SpO2: 96 % I/O: 10/10 0701 - 10/11 0700 In: 1142 [I.V.:1142] Out: 1420 [Urine:1420] Ventilator Settings: Vent Mode: AC/VC+ Rate Set: 12 bmp Vt Ordered: 400 mL Pressure Support: 0 cmH20 PEEP/CPAP: 8 FiO2 : 55 % Oxygen Delivery - O2 Flow Rate (L/min): 45 L/min Invasive Lines and Dates: Jensen Intubation Date: N/A General Appearance: []WDWN []Obese [x]Cachectic []Thin [x]ill Skin: Temperature [x]Warm []Cool Rash []Yes [x]No Tattoo(s) []Yes [x]No HEENT: Pupils round and react [x]Yes []No Sclera []Icteric []Non-Icteric Conjunctiva []Injected [x]Non-Injected Pinnae [x]Normal []Other Dentitian [][place] Teeth []Dentures Oral Mucosa [x][place] [x]Moist []Dry Oral ETT []Present [x]Absent Neck: Trachea midline [x]Yes []No Thyromegaly []Yes []No Crepitus []Present [x]Absent Jvd []Present [x]Absent Lungs: []Clear []Crackles []Wheezes [x]Rhonchi, BILATERAL Respiratory effort []Labored [x]Non-Labored Heart: Rate [x]Regular []Irregular []Tachycardia []Bradycardia Rhythm [x]Regular []Irregular Murmur []Present [x]Absent Peripheral Edema []Present [x]Absent Abdomen: [x]Soft Bowel Sounds [x]Present []Absent []Tender [x]Non-Tender []Distended []Non-distended Hernia []Present [x]Absent Organomegaly []Present [x]Absent []Scar Extremities: Cyanosis []Present [x]Absent STEELE ([x]RUE [x]RLE [x]LUE [x]LLE) Neurologic: SHUNG[place]K []Yes [x]No Corneal reflexes []Present []Absent Plantar reflexes []Up []Down []Absent Withdraws to tactile []Yes []No Follows Commands [x]Yes []No []Unresponsive to verbal []Cranial nerves grossly intact []Sensation grossly intact Psych: Alert [x]yes []no Oriented []x0 []x1 []x2 [x]x3 Affect [x]Normal []Flat []Agitated []Anxious []Calm []Sedated []NAD [facility] within last 72 hours BMP: Recent Labs 08/19/20 0126 10/11/19 0104 10/12/19 0410 NA 138 141 143 K 3.4* 3.9 3.4* CL 110* 108* 110* CO2 24 19* 19* BUN <2* 3* 6* CREATININE 0.30* 0.29* 0.37* CALCIUM 7.4* 7.7* 8.1* MG 1.6 1.6 1.8 PHOS -- 2.3* 1.7* LFTS: Recent Labs 10/11/19 0104 10/12/19 0410 AST 43 37 ALT 17 20 PROT 5.0* 5.3* LABALBU 2.4* 2.5* BILITOT 1.1 0.7 ALKPHOS 99 129* Glucose: Recent Labs 10/10/19 0126 10/11/19 0104 10/12/19 0410 10/12/19 1249 GLUCOSE 74 119* 201* -- POCGLU -- -- -- 234* CBC: Recent Labs 10/11/19 0104 10/11/19 1837 10/12/19 0728 WBC 26.9* 29.8* 28.4* HGB 10.8* 10.2* 9.9* HCT 34.1* 32.6* 30.4* PLT 299 374 400 MCV 85.1 85.8 84.9 RDW 19.5* 19.5* 19.8* ABGs: Recent Labs 10/10/19 1623 PHART 7.431 [id number] 34.0* PO2ART 54.7* CNT0UKI 22.1 [id number] 88.9* FIO2A No data Lactic Acid: Recent Labs 10/10/19 1647 LACTA 1.0 INR: Recent Labs 10/12/19 0410 INR 1.2* pro-BNP: No results for input(s): NTPROBNP in the last 72 hours. Cardiac Injury Profile: Recent Labs 10/10/19 1647 TROPONINI 0.032 Labs in Last 3 months: Lab Results Component Value Date INR 1.2 (H) 10/12/2019 NTPROBNP 1,267 (H) 10/09/2019 Imaging: CXR 10/09: Conclusion(s): 1. Interstitial edema superimposed on asymmetric pneumonitis, predominating on the left. 2. Bilateral pleural effusions and basilar atelectasis, worse on the right. 3. Cardiomegaly. KUB 10/09: IMPRESSION: 1. Suspected ileus, a little worse than on the prior study. NG tube tip now about the level of the GE junction. CT CHEST 10/09: IMPRESSION: 1. Pulmonary emphysema with patchy bilateral peripheral airspace disease suggestive of pneumonia. Imaging features can be seen with (Covid-19) pneumonia, though are nonspecific and can occur with a variety of infectious and noninfectious processes. 2. Moderate to large bilateral pleural effusions. 3. Severe hepatic steatosis with possible superimposed edema in the proper clinical setting. 4. NG tube tip near the GE junction. Recommend advancement several centimeters. 5. Age indeterminant T6 compression deformity with near complete height loss anteriorly and accentuated kyphosis at that level. KUB 10/10: IMPRESSION: Oral gastric tube tip projects in the region of the stomach Diffuse small bowel air with mild dilatation favoring ileus CXR 10/11: IMPRESSION: 1. Lines/ tubes/ devices: NG tube tip overlies gastric body. 2. Lungs and Pleura: There are diffuse reticular nodular infiltrates, unchanged from prior exam. Small bilateral pleural effusions are resolved. 3. Heart and mediastinum: Normal cardiomediastinal margin. 4. Bones: Thoracic degenerative spondylosis. KUB 10/11: FINDINGS: Bilateral lower lobe interstitial opacities. Linear radiopaque densities overlie the left upper abdomen uncertain significance. NG tube tip overlies gastric body. The bowel gas pattern is unremarkable. No renal or ureteral calculi. There is no organomegaly. The osseous structures are normal. IMPRESSION: NG tube tip overlies gastric body. No acute abdominal process. Cultures: Bcx 10/02 - NG5D UCx 10/02 - negative C diff - negative COVID19 - negative Gram stain 10/09 - Many PMNs, no organisms Thora labs - Many PMNs, no organisms Fungal stain - no fungal elements AFB stain - no acid fast bacilli GI PCR Panel - negative Respiratory PCR - negative Assessment and Plan: Principal Problem: GI bleed Active Problems: Sepsis (HCC) Acute respiratory failure with hypoxia (HCC) COPD (chronic obstructive pulmonary disease) (HCC) Tobacco abuse Chronic alcohol use Acute midline thoracic back pain Elevated serum creatinine Shock (HCC) Resolved Problems: * No resolved hospital problems. * Acute Hypoxic respiratory failure - Likely VQ mismatch from recent thoracentesis / lung reexpansion / aspiration. - WBC 28.4 today, slightly downtrending from 29.8 - Started on NIV s/p thoracentesis, now transitioned to HFNC this morning - Repeat CXR this AM shows bilateral pleural effusions that are resolved, unchanged diffuse reticular nodular infiltrates - ID consulted; d/c'ed Zosyn on 10/08, d/c'ed cefepime and flagyl. Meropenem and PO doxy started - Thoracentesis done with 900mL drained from each side and sent for studies -- Many PMNs, no organisms - Lasix 20 IV given today - BG 201 this morning; Placed on SSI - Previous CTA chest at [facility] was negative for a PE - Respiratory workup diop negative - Initial COVID 19 test at [facility] negative. Repeat COVID-19 negative - ABG showed 7.431 / 34.0 / 54.7 / 22.1 - Previous Procalcitonin 1.82>0.26>0.15 - Continue Solumedrol 40 q 6 hour - ANCA and ANGELA pending - to rule out autoimmune causes. GI bleed (resolved) - No evidence of active GI bleed - S/P EGD 10/04 that showed esophagitis / linear ulcerative area in stomach that was clipped (4) andinjected with epi - Continue to monitor Ileus - Had multiple watery BMs while on floor. Still having diarrhea BMs. - Overnight pt removed NG tube, but now it has been replaced - KUB today shows improvement in ileus - On diet tube feed continuous/cyclic NPO; initial rate 10, goal rate 20 - If able to take PO, OK to stop tube feeds Electrolytes - Phosphorus low at 1.7, replaced this AM, f/u repeat Phosphorus - ABG ph 7.36 - LA 1.0 Alcohol abuse - Used to drink ~10-15 drinks per day, according to son today - Has been admitted in the hospital for 9 days now - Low likelihood of withdrawal at this point Elevated INR - Likely multifactorial with ETOH abuse & decreased nutritional intake -INR 1.2 Severe Malnutrition - Albumin consistently low on admission - Possible cause of the ascities / effusions - Licensed Architect consulted - Continue trickle feeds Colitis - Recent C. Diff and GI PCR negative GI Prophylaxis: pantoprazole 40mg BID DVT Prophylaxis: SCDs - recent GIB Associated attestation - Sherry Suarez MD - 10/12/2019 2:17 PM EDT I have personally performed a [id number] diagnostic evaluation on this patient on date of service10/12/19. History, labs, imaging studies, and electronic medical record have been reviewed by me. This note documented by the [x]powerhouse operator []JAMAL reflects my history, exam, and medical decision making. I have reviewed and agree with the care plan. Changes were made in the orders as necessary. ROSdocumentation was reviewed and negative unless otherwise stated in HPI. Additional pertinent interval history, ROS, and physical exam findings: - pulled NGT overnight but replaced this AM without issues - tolerated HFNC overnight (without NIV for hypoxia). She did require brief NIV this AM after she pulled off the HFNC while anxious and acutely desaturated. Able to transition back to HFNC shortly thereafter Assessment: - acute on chronic hypoxic respiratory failure - bilateral multifocal pulmonary infiltrates: infectious vs edema - bilateral pleural effusions - colitis: suspect infectious etiology - diarrhea 2/2 above - UGIB 2/2 gastric ulcer s/p EGD w/clips 10/04 - malnutrition/cachexia - COPD Plan: - tolerated trickle TF via NGT: will increase rate to 20cc/hr today - cleared per RESEARCH AIDE for PO: will start clear liquids today - will consider stopping TF and pulling NGT once taking adequate PO, will need nutrition supplements for severe malnutrition - phos low today, concern for re-feeding syndrome: trend BMP/Mg/Phos q6h and replace as indicated - s/p thoracentesis on R yesterday, 900cc off (had L thora for same amount on day prior) - give lasix today, keep dry as renal function tolerates - change PRN ativan from CIWA protocol to as needed for anxiety (0.5 mg IV q6h PRN) - respiratory status still tenuous while starting PO diet today: continue to monitor in ICU * Felix Davis MD - 10/11/2019 4:14 PM EDT Progress Note [facility] Patient - Dory A Atilio, Age - 64 y.o. - 1955 Room Number - [id number] N - [id number] [facility] # - [id number] Date of Admission - 10/03/2019 2:19 AM ASSESSMENT 1. Resolved Hypovolemic vs Septic Shock 2. Acute GI Bleed dt Stomach Ulcer s/p EGD/ Clipping 10/04 3. Multifocal Pneumonia vs Pulmonary Edema 4. Urinary Tract Infection; culture negative 5. Leukocytosis 6. Infectious Colitis Descending Colon/ Sigmoid Colon/ Rectum 7. COPD on Home O2 8. Diarrhea, stool studies negative. May be antibiotic related from the Zosyn versus less likely due to C. difficile as a test was -4 days ago. Repeat testing has been sent. 9. Ac on Chronic Hypoxic Respiratory Failure PLAN Discontinued Zosyn on 10/08 at D # 6 atb treatment total (4 days HAP coverage) Discontinue Cefepime D3 and flagyl D3. Start Meropenem and PO Doxy Continue IV flagyl empirically pending C diff testing results Follow WBC, up to 26, started on solumedrol yesterday Rev CXR Wean O2 Stool log, follow-up and repeat C. difficile testing Start empiric PO VAnco. If C diff is negative, will stio PO vanco and start PO levaquin SUBJECTIVE: Transferred to ICU yesterday for worsening SOB on 6L NC.CT chest was done and showed diffuse bilateral infiltrates, large bilateral pleural effusions and severe emphysematous changes. Diarrhea better. WBC 16-14-15-27. Had left thoracentesis yesterday with 900 cc fluid drained OBJECTIVE VITALS height is 5' 7 (1.702 m) and weight is 104 lb 0.9 oz (47.2 kg). Her temporal temperature is 98.1 F(36.7 C). Her blood pressure is 103/72 and her pulse is 101. Her respiration is 22 and oxygen saturation is 93%. Temp (24hrs), Av.2 F (36.8 C), Min:97.2 F (36.2 C), Max:98.9 F (37.2 C) General Appearance: Alert, NAD HEENT: wnl Neck: Supple Lungs: rhonchi to auscultation b/l on NC O2 Cardiovascular: RRR Abdomen: Soft NT, ND, BS+ : no CVAT. No jensen Neurologic: wnl Skin: No rashes Extremities: No edema, No joint inflammation Lines: sites clean MEDICATIONS: ipratropium-albuterol 1 ampule Inhalation Q4H sodium chloride flush 10 mL Intravenous 2 times per day methylPREDNISolone 40 mg Intravenous Q6H metroNIDAZOLE 500 mg Intravenous Q8H cefepime 2 g Intravenous Q8H miconazole Topical BID pantoprazole 40 mg Intravenous BID And sodium chloride (PF) 10 mL Intravenous BID [Held by provider] lactulose 30 g Oral BID lidocaine 1 patch Transdermal Daily thiamine 100 mg Intravenous Daily folic acid IVPB 1 mg Intravenous Daily sodium chloride Stopped (10/10/19 1709) LABS: CBC: Recent Labs 10/10/19 0126 10/10/19 1647 10/11/19 0104 WBC 15.0* 17.9* 26.9* HGB 10.6* 11.3* 10.8* PLT 277 313 299 BMP: Recent Labs 10/09/19 0118 10/10/19 0126 10/11/19 0104 NA 136 138 141 K 3.5 3.4* 3.9 CL 108* 110* 108* CO2 23 24 19* BUN <2* <2* 3* CREATININE 0.31* 0.30* 0.29* GLUCOSE 93 74 119* Hepatic: Recent Labs 10/09/19 0118 10/11/19 0104 ALKPHOS 112 99 ALT 20 17 AST 30 43 PROT 4.4* 5.0* BILITOT 0.8 1.1 LABALBU 2.0* 2.4* Lactic Acid: Recent Labs 10/10/19 1647 LACTA 1.0 MICROBIOLOGY: No results for input(s): BC in the last 72 hours. IMAGING: Reviewed >30 min CCT [facility] 10/11/2019 4:14 PM * Elvira Begum, RD, LD - 10/11/2019 10:45 AM EDT Comprehensive Nutrition Assessment Type and Reason for Visit: Reassess Nutrition Recommendations/Plan: 1. Per discussion with , EN to likely begin today, may need TPN if unable to tolerate EN. 2. Pt is at risk for re-feeding syndrome; recommend starting low in rate for EN, low in dextrose kcals for TPN and monitor electrolytes, s/s of re-feeding syndrome. 3. Recommend for EN: IMMUNE ENHANCING (Pivot 1.5) @ 40 mls/hour = 1440 kcals, 90g protein, 728 mls free H20 = 23 kcals/kg IBW (27 kcals/kg UBW) + 1.46g protein/kg IBW (1.7g protein/kg UBW). 4. Recommend for GOAL TPN if indicated: 110g protein (440 kcals), 630 dextrose kcals, 460 lipid kcals = 1530 kcals = 25 kcals/kg + 1.8g protein/kg IBW. 5. Monitor nutritional status. Nutrition Assessment: Pt with full mask NIV, RD enters room with appropriate PPE, pt reports that she wants to eat, feels like she has probably lost weight. NFPA: severe clavicle protrusion, moderatetemporal wasting, calves - loss of muscle definition, loss of subcutaneous fat: orbital (dark circles/slightly hollow appearance), interosseus. RESEARCH AIDE - defers eval as pt on NIV and unable to participate in goals of care. Malnutrition Assessment: Malnutrition Status: Severe malnutrition Context: Acute Illness Findings of the 6 clinical characteristics of malnutrition: Energy Intake: 7 - 50% or less of estimated energy requirements for 5 or more days Weight Loss: 7 - Greater than 5% over 1 month Body Fat Loss: 1 - Mild body fat loss Orbital, Buccal region(interosseus) Muscle Mass Loss: 7 - Moderate muscle mass loss Temples (temporalis), Clavicles (pectoralis & deltoids), Calf (gastrocnemius), Hand (interosseous) Fluid Accumulation: 1 - Mild Extremities Macroeconomics Professor Strength: Not Performed Estimated Daily Nutrient Needs: Energy (kcal): 25-30 kcals/kg = 6339-6187 kcals/day. Can start with 25-30 kcals/kg UBW/Admission body weight (53.1kgs) = 4502-6644 kcals/day; Weight Used for Energy Requirements: Enigma Protein (g): 1.4-1.6g protein IBW (61.3kgs) = 84-98g protein/day; Weight Used for Protein Requirements: Enigma Fluid (ml/day): per MD order; Weight Used for Fluid Requirements: Enigma Nutrition Related Findings: +BS, abd distended, +1 BUE non-pitting edema. Wounds: Coccyx stage II Current Nutrition Therapies: Diet NPO Effective Now Exceptions are: Ice Chips Anthropometric Measures: Height: 5' 7 (170.2 cm) Current Body Weight: 104 lb (47.2 kg)(10/11/19) Admission Body Weight: 117 lb (53.1 kg) Usual Body Weight: 117 lb (53.1 kg) Enigma Body Weight: 135 lbs; % Enigma Body Weight 77 % BMI: 16.3 BMI Categories: Normal Weight (BMI 18.5-24.9) BMP: Recent Labs 10/09/19 0118 10/10/19 0126 10/11/19 0104 NA 136 138 141 K 3.5 3.4* 3.9 CL 108* 110* 108* CO2 23 24 19* BUN <2* <2* 3* CREATININE 0.31* 0.30* 0.29* GLUCOSE 93 74 119* CALCIUM 7.1* 7.4* 7.7* IONCA 4.00* -- -- MG 1.5* 1.6 1.6 PHOS 2.8 -- 2.3* BG - elevated. Phos - decreased. BUN/Cr - low - can be linked to low muscle mass. HEPATIC: Recent Labs 10/09/1911710/11/19 0104 AST 30 43 ALT 20 17 BILITOT 0.8 1.1 ALKPHOS 112 99 Nutrition Diagnosis: Severe malnutrition, In context of acute illness or injury related to impaired respiratory function, altered GI function as evidenced by diarrhea, NPO or clear liquid status due to medical condition,intake 0-25%, poor intake prior to admission, weight loss greater than or equal to 5% in 1 month(11.1% x 1 month) Nutrition Interventions: Food and/or Nutrient Delivery: Continue NPO, Start Tube Feeding(start EN as feasible; TPN if unableto tolerate TF) Nutrition Education/Counseling: No recommendation at this time Coordination of Nutrition Care: Continued Inpatient Monitoring Goals: Pt receives estimated energy/protein requirements via EN vs TPN. Nutrition Monitoring and Evaluation: Food/Nutrient Intake Outcomes: Enteral Nutrition Intake/Tolerance, Parenteral Nutrition Intake/Tolerance Physical Signs/Symptoms Outcomes: Biochemical Data, Nutrition Focused Physical Findings, Diarrhea, GI Status, Nausea or Vomiting, Fluid Status or Edema, Hemodynamic Status, Skin, Weight, Chewing or Swallowing Discharge Planning: Too soon to determine Contact: Pager #[phone] * Zoe Pickard SLP - 10/11/2019 10:07 AM EDT Speech Language Pathology Pt on NIV and unable to participate in dysphagia plan of care. Will follow. * Tierney White MD - 10/11/2019 6:48 AM EDT ICU Progress Note Dory Basurto : 1955(64 y.o.) Date: October 11, 2019 Team: ICU Attending: Dr. Suarez Chief Complaint: SOB Subjective: Patient transferred from floors yesterday for worsening SOB on 6L NC.CT chest was done and showed diffuse bilateral infiltrates, large bilateral pleural effusions and severe emphysematous changes. Patient did have ileus prior to transfer but has diarrhea since (c diff negative), KUB done and showing suspected ileus. Left thora done on floors and 900 cc drained. Placed on NRB after thora. CXR showing some fluid overload and placed on NIV and transferred ICU. Was also positive for fever and WBC count prior to transfer. ID following. Review of Systems Constitutional: Negative for appetite change, diaphoresis and fever. HENT: Negative for congestion, ear pain, facial swelling, rhinorrhea and sore throat. Eyes: Negative for photophobia, pain and visual disturbance. Respiratory: Negative for cough, chest tightness, shortness of breath and wheezing. Cardiovascular: Negative for chest pain and leg swelling. Gastrointestinal: Negative for abdominal pain, constipation, diarrhea, nausea and vomiting. Genitourinary: Negative for difficulty urinating, dysuria, flank pain, frequency, hematuria and urgency. Musculoskeletal: Negative for arthralgias, back pain, myalgias and neck pain. Skin: Negative for rash. Neurological: Negative for dizziness and headaches. Psychiatric/Behavioral: Negative for confusion. Scheduled Meds: ipratropium-albuterol 1 ampule Inhalation Q4H sodium chloride flush 10 mL Intravenous 2 times per day methylPREDNISolone 40 mg Intravenous Q6H metroNIDAZOLE 500 mg Intravenous Q8H cefepime 2 g Intravenous Q8H miconazole Topical BID pantoprazole 40 mg Intravenous BID And sodium chloride (PF) 10 mL Intravenous BID [Held by provider] lactulose 30 g Oral BID lidocaine 1 patch Transdermal Daily thiamine 100 mg Intravenous Daily folic acid IVPB 1 mg Intravenous Daily Continuous Infusions: sodium chloride Stopped (10/10/19 1709) Objective: VITALS: BP 111/65 Pulse 110 Temp 98.3 F (36.8 C) (Temporal) Resp 27 Ht 5' 7 (1.702 m) Wt104 lb 0.9 oz (47.2 kg) SpO2 95% BMI 16.30 kg/m CURRENT PULSE OXIMETRY: SpO2: 95 % I/O: 10/09 0701 - 10/10 0700 In: 853 [I.V.:853] Out: 1959 [Urine:1959] Ventilator Settings: Vent Mode: AC/VC+ Rate Set: 12 bmp Vt Ordered: 400 mL Pressure Support: 0 cmH20 PEEP/CPAP: 8 FiO2 : 70 % Oxygen Delivery - O2 Flow Rate (L/min): 15 L/min Invasive Lines and Dates: Jensen Intubation Date: N/A General Appearance: []WDWN []Obese [x]Cachectic []Thin [x]ill Skin: Temperature [x]Warm []Cool Rash []Yes [x]No Tattoo(s) []Yes []No HEENT: Pupils round and react [x]Yes []No Sclera []Icteric []Non-Icteric Conjunctiva []Injected [x]Non-Injected Pinnae [x]Normal []Other Dentitian [][place] Teeth []Dentures Oral Mucosa [x][place] [x]Moist []Dry Oral ETT []Present [x]Absent Neck: Trachea midline [x]Yes []No Thyromegaly []Yes [x]No Crepitus []Present [x]Absent Jvd []Present [x]Absent Lungs: []Clear []Crackles []Wheezes [][place] Respiratory effort []Labored []Non-Labored Heart: Rate []Regular []Irregular [x]Tachycardia []Bradycardia Rhythm []Regular [x]Irregular Murmur []Present [x]Absent Peripheral Edema []Present [x]Absent Abdomen: [x]Soft Bowel Sounds [x]Present []Absent []Tender [x]Non-Tender []Distended []Non-distended Hernia []Present [x]Absent Organomegaly []Present []Absent []Scar Extremities: Cyanosis []Present [x]Absent STEELE ([x]RUE [x]RLE [x]LUE [x]LLE) Neurologic: SHUNG[place]K []Yes [x]No Corneal reflexes []Present []Absent Plantar reflexes []Up []Down []Absent Withdraws to tactile []Yes []No Follows Commands [x]Yes []No []Unresponsive to verbal []Cranial nerves grossly intact []Sensation grossly intact Psych: Alert [x]yes []no Oriented []x0 []x1 []x2 []x3 Affect []Normal []Flat []Agitated []Anxious []Calm []Sedated []NAD Select Labs within last 72 hours BMP: Recent Labs 10/09/1911710/10/1912510/11/19 010 NA 136 138 141 K 3.5 3.4* 3.9 CL 108* 110* 108* CO2 23 24 19* BUN <2* <2* 3* CREATININE 0.31* 0.30* 0.29* CALCIUM 7.1* 7.4* 7.7* MG 1.5* 1.6 -- PHOS 2.8 -- -- LFTS: Recent Labs 10/09/1911710/11/19 010 AST 30 -- ALT 20 -- PROT 4.4* 5.0* LABALBU 2.0* -- BILITOT 0.8 -- ALKPHOS 112 -- Glucose: Recent Labs 10/09/1911710/10/1912510/11/19 010 GLUCOSE 93 74 119* CBC: Recent Labs 10/10/1912510/10/19 1647 10/11/19 010 WBC 15.0* 17.9* 26.9* HGB 10.6* 11.3* 10.8* HCT 33.1* 35.4 34.1* PLT 277 313 299 MCV 84.6 83.9 85.1 RDW 18.8* 18.9* 19.5* ABGs: Recent Labs 10/10/19 1623 PHART 7.431 [id number] 34.0* PO2ART 54.7* ZER6UNV 22.1 P2TCIHUS 88.9* FIO2A No data Lactic Acid: Recent Labs 10/10/19 1647 LACTA 1.0 INR: Recent Labs 10/09/19 0118 INR 1.5* pro-BNP: Recent Labs 10/09/19 1145 NTPROBNP 1,267* Cardiac Injury Profile: Recent Labs 10/10/19 1647 TROPONINI 0.032 Labs in Last 3 months: Lab Results Component Value Date INR 1.5 (H) 10/09/2019 NTPROBNP 1,267 (H) 10/09/2019 Imaging: CXR 10/09 - Conclusion(s): 1. Interstitial edema superimposed on asymmetric pneumonitis, predominating on the left. 2. Bilateral pleural effusions and basilar atelectasis, worse on the right. 3. Cardiomegaly. KUB 10/09 - IMPRESSION: 1. Suspected ileus, a little worse than on the prior study. NG tube tip now about the level of the GE junction. Cultures: Bcx 10/02 - NG5D UCx 10/02 - negative C diff - negative COVID19 - negative Gram stain 10/09 - Many PMNs, no organisms Thora labs - pending RVP - pending Assessment and Plan: Principal Problem: GI bleed Active Problems: Sepsis ([facility]) Acute respiratory failure with hypoxia ([facility]) COPD (chronic obstructive pulmonary disease) ([facility]) Tobacco abuse Chronic alcohol use Acute midline thoracic back pain Elevated serum creatinine Shock ([facility]) Resolved Problems: * No resolved hospital problems. * Acute Hypoxic respiratory failure - Likely VQ mismatch from recent thoracentesis / lung reexpansion / aspiration. - Previous CTA chest at [facility] was negative for a PE - CT chest WO obtained with recent exacerbation 10/09 showsed pulmonary emphysema with patchy bilateral peripheral airspace disease suggestive of pneumonia. - Respiratory workup diop negative - Thoracentesis done with 900mL drained and send for studies - Initial COVID 19 test at [facility] negative. Repeat COVID-19 negative - ABG showed 7.431 / 34.0 / 54.7 / 22.1 - Previous Procalcitonin 1.82>0.26>0.15 - WBC steadily increasing, 26.9 today - Started on NIV s/p thora - now weaned to HFNC - Repeat CXR tomorrow AM - ID consulted; currently on Cefepime and Flagyl (for aspiration and c diff coverage) - Continue Solumedrol 40 q 6 hour - ANCA and ANGELA - to rule out autoimmune causes - Follow up on thoracentesis labs - Repeat thora on RT side with 900 ml pulled GI bleed (resolved) - No evidence of active GI bleed - S/P EGD 10/04 that showed esophagitis / linear ulcerative area in stomach that was clipped (4) andinjected with epi - Continue to monitor for now Ileus - Had multiple watery BMs while on floor - Previously had NG, now removed - KUB yesterday showing suspected ileus - Keep NPO - NG placed to suction - Start trickle tube feeds - has not had nutrition since 10/06 Electrolytes - Ca low - HAGMA - bicarb low - Currently on NS @ 50 mL/hr - ABG ph 7.43 - LA 1.0 Alcohol abuse - Drinks approximately 3-4 beers per day - Continue with thiamine - Has been admitted in the hospital for 8 days now - Low likelihood of withdrawal at this point, still has CIWA ordered. Elevated INR - Likely multifactorial with ETOH abuse & decreased nutritional intake - Recheck INR Severe Malnutrition - Albumin consistently low on admission - Possible cause of the ascities / effusions - Licensed Architect consult - Starting trickle feeds Colitis - Recent C. Diff and GI PCR negative - Continue with NG tube GI Prophylaxis: pantoprazole 40mg BID DVT Prophylaxis: SCDs - recent GIB Associated attestation - Sherry Suarez MD - 10/11/2019 4:58 PM EDT I have personally performed a [id number] diagnostic evaluation on this patient on date of service10/11/19. History, labs, imaging studies, and electronic medical record have been reviewed by me. This note documented by the [x]powerhouse operator []JAMAL reflects my history, exam, and medical decision making. I have reviewed and agree with the care plan. Changes were made in the orders as necessary. ROSdocumentation was reviewed and negative unless otherwise stated in HPI. Additional pertinent interval history, ROS, and physical exam findings: - transferred back to ICU yesterday for worsening hypoxia, required NIV overnight - desat when tried to transition to NC this am, back on NIV Assessment: - acute on chronic hypoxic respiratory failure - bilateral multifocal pulmonary infiltrates: infectious vs edema - bilateral pleural effusions - colitis: suspect infectious etiology - diarrhea 2/2 above - UGIB 2/2 gastric ulcer s/p EGD w/clips 10/04 - malnutrition/cachexia - COPD Plan: - work of breathing improved on NIV, but still requiring high FiO2. Will transition to HFNC as tolerated, can use NIV if worsening hypoxia or increased work of breathing recurs - s/p L thora yesterday with 900 cc off: will order R thora today, as effusion persisting on CXR and may help with weaning FiO2: check cxs of pleural fluid - pulm hygiene w/OOB as able, PT/OT, IS - continue IV steroids at current dose (escalated yesterday due to acute decompensation in respiratory status) can begin to taper if improving tmrw - repeat respiratory viral panel (repeat COVID testing yesterday was negative) - abx per ID: empirically tx C.Diff and repeat test pending (negative prior) as well as broad spectrum abx given concern for LRTI - since extubated has had issues with ileus, initially had NGT which had significant output, but that was removed recently. She has not been on PO diet during this time, and is malnourished at baseline. Will re-insert NGT: as long as no significant output, will start trickle tube feeds and uptitrate as tolerated. If unable to tolerate tube feeds, will need to start TPN. Discussed with Dr. Ivey today, will d/w head banquet waitress. Total critical care time for this patient with life-threatening unstable organ failure, including direct patient contact, management of life support systems, review of data including imaging and labs, and discussions with other team members and physicians at least 35 min so far today, excluding procedures. * Evita Powell, COPIER TECHNICIAN - 10/11/2019 4:22 AM EDT Patient Evaluation Form The patient is currently receiving HFCWO Q4H Points 0 1 2 3 4 Points Totals Pulmonary Status (-/+) History Smoking history < 20 pack years Smoking history > 20 pack years Pulmonary Disorder (acute or chronic) Severe or Chronic with Exacerbation 3 Surgical Status No Surgery Trach PEG General Surgery Lower Abdominal Thoracic or Upper Abdominal Thoracic with Pulmonary Disorder 0 Chest X-ray Clear None Ordered Chronic Changes CXR results Pending Infiltrates, atelectasis, pleural effusion, or edema Infiltrates in more than one lobe Infiltrate + Atelectasis, &/or pleural effusion 4 Respiratory Pattern Regular, RR = 12-20 Increased, RR = 21-25 WILSON, irregular, or RR = 26-30 Decreased FEV1 or RR = 31-35 Severe SOB, used of of accessory muscles, or RR = > 35 1 Mental Status Alert, oriented, cooperative Confused, but follows commands Lethargic or un-able to follow commands Obtunded Comatose 0 Breath Sounds Clear to auscultation Decreased unilaterally or in bases only Decreased bilaterally Crackles or intermittent wheezes Wheezes 1 Cough Strong, spontaneous, & nonproductive Strong, spontaneous, & productive Weak, nonproductive Weak, productive or with wheezes No spontaneous cough or may require suctioning 0 Level of Activity Ambulatory Ambulatory with Assist Non-ambulatroy Paraplegic Quadriplegic 1 Triage 1 > 20 pts Triage 2 16-20 pts Triage 3 11- 15 pts Triage 4 6 - 10 pts Triage 5 0 - 5 pts TOTAL POINTS = 10 Triage Score = 4 Changing Therapy to HFCWO TID * Felix Davis MD - 10/10/2019 3:46 PM EDT Progress Note [facility] Patient - Dory Basurto, Age - 64 y.o. - 1955 Room Number - [id number] [facility] [id number] [id number] Date of Admission - 10/03/2019 2:19 AM ASSESSMENT 1. Resolved Hypovolemic vs Septic Shock 2. Acute GI Bleed dt Stomach Ulcer s/p EGD/ Clipping 10/04 3. Multifocal Pneumonia vs Pulmonary Edema 4. Urinary Tract Infection; culture negative 5. Leukocytosis 6. Infectious Colitis Descending Colon/ Sigmoid Colon/ Rectum 7. COPD on Home O2 8. Diarrhea, stool studies negative. May be antibiotic related from the Zosyn versus less likely due to C. difficile as a test was -4 days ago. Repeat testing has been sent. 9. Ac on Chronic Hypoxic Respiratory Failure PLAN Discontinued Zosyn on 10/08 at D # 6 atb treatment total (4 days HAP coverage) Continue Cefepime D2 and flagyl D2. Added IV flagyl empirically pending C diff testing results Follow WBC Check CXR Wean O2 Stool log, follow-up and repeat C. difficile testing SUBJECTIVE: Continues to have loose stools. Fevers upto 101.1F. Mosit cough. Remains on NC O2. Stool studies sent and pending. WBC 16-14-15. Detailed ROS checked x 10 systems. All questions answered. OBJECTIVE VITALS height is 5' 7 (1.702 m) and weight is 104 lb (47.2 kg). Her temporal temperature is 98.2 F (36.8 C). Her blood pressure is 122/66 and her pulse is 90. Her respiration is 16 and oxygen saturation is90%. Temp (24hrs), Av.7 F (37.6 C), Min:98.2 F (36.8 C), Max:101.1 F (38.4 C) General Appearance: Alert, NAD HEENT: wnl Neck: Supple Lungs: rhonchi to auscultation b/l on NC O2 Cardiovascular: RRR Abdomen: Soft NT, ND, BS+ : no CVAT. No jensen Neurologic: wnl Skin: No rashes Extremities: No edema, No joint inflammation Lines: sites clean MEDICATIONS: ipratropium-albuterol 1 ampule Inhalation Q4H sodium chloride flush 10 mL Intravenous 2 times per day metroNIDAZOLE 500 mg Intravenous Q8H cefepime 2 g Intravenous Q8H miconazole Topical BID pantoprazole 40 mg Intravenous BID And sodium chloride (PF) 10 mL Intravenous BID [Held by provider] lactulose 30 g Oral BID lidocaine 1 patch Transdermal Daily thiamine 100 mg Intravenous Daily folic acid IVPB 1 mg Intravenous Daily sodium chloride 50 mL/hr at 10/10/19 1245 LABS: CBC: Recent Labs 10/08/19 0256 10/09/19 0118 10/10/196 WBC 16.3* 14.1* 15.0* HGB 10.3* 10.3* 10.6* PLT 266 249 277 BMP: Recent Labs 10/08/19 0256 10/09/19 0118 10/10/19 012 NA 135 136 138 K 3.7 3.5 3.4* CL 108* 108* 110* CO2 24 23 24 BUN <2* <2* <2* CREATININE 0.27* 0.31* 0.30* GLUCOSE 106* 93 74 Hepatic: Recent Labs 10/08/196 10/09/19117 ALKPHOS 112 112 ALT 23 20 AST 42 30 PROT 4.5* 4.4* BILITOT 0.7 0.8 LABALBU 2.1* 2.0* Lactic Acid: No results for input(s): LACTA in the last 72 hours. MICROBIOLOGY: No results for input(s): BC in the last 72 hours. IMAGING: Reviewed Felix Davis MD [facility] 10/10/2019 3:47 PM * Inga Trimble RN - 10/10/2019 3:13 PM EDT Patient arrived to Ultrasound department for thoracentesis. History, medications and allergies reviewed. Dr. Rome in to discuss procedure and informed consent obtained. Patient assisted to right side. Left upper back scanned, marked and prepped in sterile fashion. 900ccs of clear yellow fluid removed. Bandaid applied. Patient tolerated procedure well. Report called to Amy Diane on . * Nadir Messer MD - 10/10/2019 12:48 PM EDT [facility] [place], Pulmonary Critical Care and Sleep Medicine Patient - Dory Basurto, Age - 64 y.o. - 1955 Room Number - [id number] Consulting - Yehuda Mackenzie MD Primary Care Physician - No primary care provider on file. Date of Admission - 10/03/2019 2:19 AM Hospital Day - 7 Subjective/Events Past 24 hours/ROS Asked to see her because of increased SOB, worsened hypoxia. Patient says she's ok, but has a weak, ineffective cough. Wants to eat. Objective Vitals height is 5' 7 (1.702 m) and weight is 104 lb (47.2 kg). Her temporal temperature is 100.5 F (38.1C). Her blood pressure is 127/72 and her pulse is 109. Her respiration is 18 and oxygen saturation is 85% (abnormal). O2 Flow Rate (L/min): 6 L/min Actually on a ventimask right now I/O Intake/Output Summary (Last 24 hours) at 10/10/2019 1248 Last data filed at 10/10/2019 1019 Gross per 24 hour Intake Output 2000 ml Net -2000 ml Patient Vitals for the past 96 hrs (Last 3 readings): Weight 10/10/19 0347 104 lb (47.2 kg) 10/09/19 0422 104 lb 4.8 oz (47.3 kg) 10/08/19 0330 136 lb 14.5 oz (62.1 kg) Exam General Appearance Awake, alert, oriented, in no acute distress HEENT - normocephalic, atraumatic Lymph nodes- no cervical, clavicular, or posterior auricular lymphadenopathy Lungs Mild tachypnea, no accessory muscle use, no stridor. Rhonchi, wheezes. Cardiovascular - Heart sounds are normal. Regular rate and rhythm Abdomen - Soft, nontender Neurologic - Awake, follows commands. There are no focal motor deficits grossly Skin - No bruising or bleeding, good turgor, normal warmth Extremities - No clubbing, cyanosis, edema Peripheral pulses- present bilaterally and symmetric Meds metroNIDAZOLE 500 mg Intravenous Q8H cefepime 2 g Intravenous Q8H miconazole Topical BID ipratropium-albuterol 1 ampule Inhalation BID pantoprazole 40 mg Intravenous BID And sodium chloride (PF) 10 mL Intravenous BID [Held by provider] lactulose 30 g Oral BID lidocaine 1 patch Transdermal Daily thiamine 100 mg Intravenous Daily folic acid IVPB 1 mg Intravenous Daily sodium chloride 50 mL/hr at 10/10/19 1245 bisacodyl, HYDROmorphone, perflutren lipid microspheres, sodium chloride flush, diatrizoate meglumine-sodium, sennosides-docusate sodium, metoprolol, acetaminophen OR acetaminophen, promethazine OR ondansetron, albuterol, iopamidol, polyethylene glycol, sodium chloride flush, LORazepam OR LORazepam OR LORazepam OR LORazepam OR LORazepam OR LORazepam OR LORazepam OR LORazepam Labs CBC Recent Labs 10/10/19 0126 WBC 15.0* HGB 10.6* HCT 33.1* MCV 84.6 PLT 277 BMP: Recent Labs 10/09/19 0118 10/10/19 0126 NA 136 138 K 3.5 3.4* CL 108* 110* CO2 23 24 BUN <2* <2* CREATININE 0.31* 0.30* GLUCOSE 93 74 MG 1.5* 1.6 PHOS 2.8 -- IONCA 4.00* -- AB/16 7.53 / LIVER PROFILE Recent Labs 10/09/19 0118 AST 30 ALT 20 BILITOT 0.8 ALKPHOS 112 INR Lab Results Component Value Date INR 1.5 (H) 10/09/2019 INR 1.4 (H) 2019 INR 1.3 (H) 10/07/2019 PROTIME 16.1 (H) 10/09/2019 PROTIME 15.3 (H) 2019 PROTIME 13.7 (H) 10/07/2019 bnp 1,267 Cultures All reviewed Radiology CXR Reviewed (See actual reports for details) CT chest personally reviewed ECHO: 1. Left ventricle: Systolic function is normal by the biplane method of disks. The estimated ejection fraction is 60%. Doppler parameters are consistent with abnormal left ventricular relaxation (grade 1 diastolic dysfunction). 2. Right ventricle: The cavity size is mildly dilated. Systolic function is low normal. Right ventricular systolic pressure is within the normal range. 3. No significant valve disease. 4. Aorta: The aorta is normal. 5. Pericardium, extracardiac: There is no pericardial effusion. There is a large left pleural effusion. Active Hospital Problem List Active Hospital Problems Diagnosis Date Noted GI bleed [K92.2] 10/03/2019 Sepsis (HCC) [A41.9] 10/03/2019 Acute respiratory failure with hypoxia (HCC) [J96.01] 10/03/2019 COPD (chronic obstructive pulmonary disease) ([facility]) [J44.9] 10/03/2019 Tobacco abuse [Z72.0] 10/03/2019 Chronic alcohol use [Z72.89] 10/03/2019 Acute midline thoracic back pain [M54.6] 10/03/2019 Elevated serum creatinine [R79.89] 10/03/2019 Shock (HCC) [R57.9] Assessment and Plan 1 acute hypoxic respiratory failure 2 COPD 3 PNA 4 large bilateral effusions 5 HFpEF Plan: 1 O2 2 increase treatment frequency. 3 add CPT and flutter 4 add hypertonic saline 5 abx per ID 6 aspiration precautions 7 elevated HOB 8 tap effusions Case discussed with nurse, RT and patient. Questions and concerns addressed. * Ryder Sullivan, PT - 10/10/2019 11:23 AM EDT Physical Therapy Facility/Department: [facility] Initial Assessment NAME: Dory Basurto : 1955 Date of Service: 10/10/2019 Discharge Recommendations: Subacute/Jail Facility(at present, could not tolerate intensity of rehab) Assessment Body structures, Functions, Activity limitations: Decreased functional mobility ;Decreased ROM;Decreased strength;Decreased posture;Decreased endurance;Decreased safe awareness;Decreased balance Assessment: Pt was very willing to help with mobility, but consistently required mod/ max assist for basic mobility. Pt's endurance appeared to be poor, but pt also did not appear to understand reason for NPO, O2 mask etc. From a mobility standpoint, pt clearly is unsafe for home mobility. Will recommend SNF-level PT Prognosis: Fair Decision Making: Medium Complexity PT Education: Goals;PT Role;Plan of Care;Transfer Training REQUIRES PT FOLLOW UP: Yes Activity Tolerance Activity Tolerance: Treatment limited secondary to medical complications (free text);Patient limited by endurance Patient Diagnosis(es): There were no encounter diagnoses. has a past medical history of COPD (chronic obstructive pulmonary disease) ([facility]). has a past surgical history that includes eye surgery. Restrictions Restrictions/Precautions Restrictions/Precautions: Fall Risk, General Precautions, Isolation(C-Diff) Required Braces or Orthoses?: No Vision/Hearing Vision: Within Functional Limits Hearing: Within functional limits Subjective General Chart Reviewed: Yes Patient assessed for rehabilitation services?: Yes Additional Pertinent Hx: COPD, chronic anemia, chronic EtOH use Family / Caregiver Present: No Diagnosis: septic shock, UTI, hospital-acquired PNA, large L pleural effusion, ileus Follows Commands: (inconsistent) Other (Comment): NPO except for ice chips General Comment Comments: NG, O2 mask with 6L (pt keeps trying to remove (when she does pulse ox drops from 87-90 to high 70s quickly), LUIS A Jensen Subjective Subjective: Pt admits she's willing to get off of her back and get up to chair. She keeps asking about eating and drinking, even after PT explains NPO and why. Pain Screening Patient Currently in Pain: Yes Pain Assessment Pain Assessment: 0-10 Pain Level: 7 Pain Type: Chronic pain Pain Location: Back Vital Signs Patient Currently in Pain: Yes Orientation Orientation Overall Orientation Status: Impaired Orientation Level: Oriented to place;Oriented to time;Disoriented to situation;Oriented to person Social/Functional History Social/Functional History Lives With: Alone Type of Home: Trailer Home Layout: One level Home Access: Stairs to enter with rails Entrance Stairs - Number of Steps: 4 Entrance Stairs - Rails: Both Bathroom Shower/Tub: Tub/Shower unit Bathroom Toilet: Standard Bathroom Equipment: Grab bars in shower Bathroom Accessibility: Accessible Home Equipment: (n/a) Receives Help From: Friend(s) ADL Assistance: Independent Homemaking Assistance: Needs assistance Homemaking Responsibilities: No Ambulation Assistance: Independent Transfer Assistance: Independent Active Biller: Yes Mode of Transportation: Car 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 States she primarily microwaves. Notes she does stand for shower and grab bars are only around toilet. She was driving until recently. Cognition Cognition Cognition Comment: pt able to be refocused with cues, but does not comprehend why NPO. Keeps removing O2 mask. Clearly does not understand/ appreciate reason for hospitalization or general health condition. Objective Observation/Palpation Posture: Poor Observation: skin quality of LEs is very rigid/ invaginate, but not abnormal coloration. Ecchymosisdeep purple, L great toe AROM RLE (degrees) RLE General AROM: generally tenetative, but completes full ROM (in general, much greater ease than LLE) AROM LLE (degrees) LLE General AROM: L hip flex 10 deg, ABD 5 deg, DF 5 deg, heel slide to 60 deg. Strength Other Other: Hip extn isometrics fair R, fair -L; knee extn R 3+/5, L 3-/5; hip flex 2+/5R, 2/5 L; Motor Control Gross Motor?: (no abnormal tone detected) Sensation Overall Sensation Status: (pt denies numbness, tingling) Bed mobility Supine to Sit: Moderate assistance Scooting: Moderate assistance Transfers Sit to Stand: Maximum Assistance Bed to Chair: Maximum assistance Ambulation Ambulation?: No Balance Sitting - Static: Fair Sitting - Dynamic: Poor;+ Standing - Static: Poor Standing - Dynamic: Poor;- Plan Plan Times per week: 5 Plan weeks: 2 Current Treatment Recommendations: Strengthening, ROM, Balance Training, Functional Mobility Training, Transfer Training, Endurance Training, Gait Training Safety Devices Type of devices: Left in chair, Call light within reach AM-[facility] Score -[facility] Inpatient Mobility Raw Score : 7 (10/10/19 1058) -[facility] Inpatient T-Scale Score : 26.42 (10/10/19 1058) Mobility Inpatient [facility] 0-100% Score: 92.36 (10/10/19 1058) Mobility Inpatient [facility] G-Code Modifier : CM (10/10/19 1058) Goals Short term goals Time Frame for Short term goals: 2 weeks Short term goal 1: Bed mobility CGA Short term goal 2: Transfers min of 1 Short term goal 3: Amb, device, 25', min of 1 Short term goal 4: Stand 2 minutes, device, dynamic UE activity, supv Short term goal 5: Increase antigravity strength to 3+/5 cathy (hip extn, knee extn, Hip ABD) Patient Goals Patient goals : be able to eat Therapy Time Individual Concurrent Group Co-treatment Time In 936 Time Out 1001 Minutes 24 Patient s Physical Therapy Plan of Care supervision is transferred to [facility] Rehab Department Physical Therapist. PT wore N95 mask, goggles, and gloves throughout entire session with patient. Ryder Sullivan PT * Mariah Mcclellan RESEARCH AIDE - 10/10/2019 9:57 AM EDT Speech Language Pathology RESEARCH AIDE attempted to see pt for BSE. Per documentation, the patients oxygen saturation levels are ranging from 84-91 with use of a Ventimask. At this time the patient is not clinically appropriate for pointake 2/2 fluctuation in her respiratory status. Will HOLD bedside swallow evaluation at this timeand follow regarding status. Mariah Mcclellan MA,[facility]-RESEARCH AIDE * Kilo Helms MD - 10/10/2019 9:48 AM EDT Hospitalist Progress Note 10/10/2019 9:48 AM [phone]: Please page me for patient care issues. [phone]: Please page [facility] night Hospitalist for any issues. Subjective: Admit Date: 10/03/2019 PCP: No primary care provider on file. Room#: 1538/[id number] Interval History: Nurse states upon entering room patient had oxygen off, pulse ox 84 Replaced oxygen at 6L nc Pulse ox 88 Nurse contacted respiratory to give 0900 treatment early Patient now on venti mask per respiratory Pulse ox 91-92. She admits to sob. No chest pain. Ongoing back pain, worst with movement. No NV. No fevers or chillls. Diet NPO Effective Now Exceptions are: Ice Chips Patient Vitals for the past 96 hrs (Last 3 readings): Weight 10/10/19 0347 104 lb (47.2 kg) 10/09/19 0422 104 lb 4.8 oz (47.3 kg) 10/08/19 0330 136 lb 14.5 oz (62.1 kg) Medications: metroNIDAZOLE 500 mg Intravenous Q8H cefepime 2 g Intravenous Q8H miconazole Topical BID ipratropium-albuterol 1 ampule Inhalation BID pantoprazole 40 mg Intravenous BID And sodium chloride (PF) 10 mL Intravenous BID [Held by provider] lactulose 30 g Oral BID lidocaine 1 patch Transdermal Daily thiamine 100 mg Intravenous Daily folic acid IVPB 1 mg Intravenous Daily LABS: CBC: Recent Labs 10/08/1925510/09/1911710/10/19 012 WBC 16.3* 14.1* 15.0* RBC 3.79* 3.83 3.91 HGB 10.3* 10.3* 10.6* HCT 31.7* 32.0* 33.1* MCV 83.7 83.6 84.6 RDW 18.1* 18.9* 18.8* PLT 266 249 277 BMP: Recent Labs 10/08/1925510/09/1911710/10/19125 NA 135 136 138 K 3.7 3.5 3.4* CL 108* 108* 110* CO2 24 23 24 BUN <2* <2* <2* CREATININE 0.27* 0.31* 0.30* GLUCOSE 106* 93 74 CALCIUM 7.4* 7.1* 7.4* ANIONGAP 3 5 4 LIVER PROFILE: Recent Labs 10/08/1925510/09/19117 AST 42 30 ALT 23 20 BILITOT 0.7 0.8 ALKPHOS 112 112 LABALBU 2.1* 2.0* PROT 4.5* 4.4* PT/INR: Recent Labs 10/08/1925510/09/19117 PROTIME 15.3* 16.1* INR 1.4* 1.5* CARDIAC ENZYMES: No results for input(s): TROPONINI in the last 72 hours. Procalcitonin: Lab Results Component Value Date PROCAL 0.26 10/07/2019 2D echo SUMMARY: 1. Left ventricle: Systolic function is normal by the biplane method of disks. The estimated ejection fraction is 60%. Doppler parameters are consistent with abnormal left ventricular relaxation (grade 1 diastolic dysfunction). 2. Right ventricle: The cavity size is mildly dilated. Systolic function is low normal. Right ventricular systolic pressure is within the normal range. 3. No significant valve disease. 4. Aorta: The aorta is normal. 5. Pericardium, extracardiac: There is no pericardial effusion. There is a large left pleural effusion. Objective: Vitals: BP 127/72 Pulse 109 Temp 100.5 F (38.1 C) (Temporal) Resp 18 Ht 5' 7 (1.702 m) Wt 104 lb (47.2 kg) SpO2 (!) 85% BMI 16.29 kg/m Pulse Ox: SpO2 Av.1 % Min: 85 % Max: 93 % Supplemental O2: O2 Flow Rate (L/min): 6 L/min General appearance: No apparent distress, appears stated age and cooperative with exam HEENT: Eyes: No scleral icterus Oral: Tongue is semi-moist Cardiovascular: S1S2 heard, tachy Respiratory: decreased at bases, left greater than right but clear Abdomen: Soft, non-tender, non-distended with normal bowel sounds. Musculoskeletal: No obvious deformities seen Skin: No visible rashes or lesions. Assessment # Sepsis with septic Shock likely due to UTI and Pneumonia - Currently on cefepime IV for HAP. ID following. # Acute UTI - Completed tx. Stopped zosyn on 10/08 per recommendations of antibx stwship. # Hospital acquired pneumonia - now on IV cefepime. ID following. # Acute respiratory failure with hypoxia/hypercarbia (resolved) with underlying hx of COPD (patientnot on home O2 or any home meds) s/p intubation, Pt extubated to nasal cannula since 10/06 - CTA chest negative for any acute PE at OSH. Infectious workup neg so far. CXR 10/06 showed improvement in pulmonary opacities. # Large left pleural effusion (parapneumonic?? CHF?) seen on echo - do CT and consult pulmonary. # Acute diarrhea with thickening of bowels on CT - treating for suspected C.diff with IV flagyl. IDconsulted and stool sample being resent. # Acute combined metabolic and respiratory acidosis - resolved # GI bleed (resolved) due to bleeding ulcer - Patient with up to 10 episodes of melanotic diarrhea daily at home prior to presentation, associated with intermittent sharp bilateral LQ abdominal pain - FOBT postive at OSH, Hb 6.8 on presentation. Seen by GI. - s/p EGD - 10cm long linear ulcerative area in body of stomach with oozing and signs 1-2 visible vessels that were clipped (4) and injectedwith epinepherine. On Protonix IV to BID # Acute blood lose anemia on chronic anemia - s/p transfusion. H/H remains stable. # Ileus noted on KUB - surgery following now. Recommends to continue NG tube # Back pain, acute on chronic - CTA chest at outside hospital with no acute osseous abnormality. Lidocaine patch to affected area. IV pain meds prn # COPD - Not O2 requiring at home, only on PRN albuterol. Duoneb scheduled q4h, accuneb PRN SOB. # Chronic alcohol use- Patient endorses drinking 5 beers daily. On prn ativan for withdrawal. 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 If indeed large, will consult IR for thoracentesis and send fluid for analysis. Meanwhile, nurse states that while entering room patient had oxygen off, pulse ox 84 she replaced oxygen at 6L nc Pulse ox 88%. Nurse contacted respiratory to give 0900treatment early. Patient now on venti mask per respiratory. Pulse ox 91-92. Consult to pulmonary tofollow. Patient now on cefepime IV and Flagyl to cover HAP and possible C.diff. ID following now. Surgery recommends to continue NPO and NGT. Meanwhile, will add IVF (for maintenance IVF) as echo states EF normal however does have grade 1 diastolic dysfunction so would be careful with fluid. Check am labs. Called and updated sister Alannah Boateng [phone] Advance Directive: Full Code Discharge planning: TBD KILO HELMS DO Division of Hospitalist Medicine Inpatient Medical Services PAGER: [phone] * Ryder Sullivan, PT - 10/09/2019 1:42 PM EDT Physical Therapy Pt in bed. When PT explained purpose of visit, pt replied I just need a break today. PT asked what was going on--pt replied I'm not getting any rest. If you come back in the morning, I'll be readyfor you. Pt asked PT to help adjust position in bed, then politely reinforced her denial of PT fortoday. * Kilo Helms MD - 10/09/2019 9:25 AM EDT Hospitalist Progress Note 10/09/2019 9:25 AM [phone]: Please page me for patient care issues. [phone]: Please page [facility] night Hospitalist for any issues. Subjective: Admit Date: 10/03/2019 PCP: No primary care provider on file. Room#: [id number] Interval History: Patient complains of back pain. No sob. No chest pain. No NV. Says shes actually hungry. No fevers or chills. Diet NPO Effective Now Exceptions are: Ice Chips Patient Vitals for the past 96 hrs (Last 3 readings): Weight 10/09/19 0422 104 lb 4.8 oz (47.3 kg) 10/08/19 0330 136 lb 14.5 oz (62.1 kg) 10/07/19 0638 147 lb 4.3 oz (66.8 kg) Medications: dexmedetomidine Stopped (10/07/19 1310) piperacillin-tazobactam 3.375 g Intravenous Q8H miconazole Topical BID ipratropium-albuterol 1 ampule Inhalation BID pantoprazole 40 mg Intravenous BID And sodium chloride (PF) 10 mL Intravenous BID [Held by provider] lactulose 30 g Oral BID chlorhexidine 15 mL Mouth/Throat BID lidocaine 1 patch Transdermal Daily thiamine 100 mg Intravenous Daily folic acid IVPB 1 mg Intravenous Daily LABS: CBC: Recent Labs 10/07/19 0047 10/08/19 0256 10/09/19 0118 WBC 11.5* 16.3* 14.1* RBC 4.06 3.79* 3.83 HGB 11.0* 10.3* 10.3* HCT 33.4* 31.7* 32.0* MCV 82.4 83.7 83.6 RDW 17.6* 18.1* 18.9* PLT 274 266 249 BMP: Recent Labs 10/07/19 0047 10/08/19 0256 10/09/19 0118 NA 133* 135 136 K 3.1* 3.7 3.5 CL 106 108* 108* CO2 22 24 23 BUN <2* <2* <2* CREATININE 0.26* 0.27* 0.31* GLUCOSE 143* 106* 93 CALCIUM 7.2* 7.4* 7.1* ANIONGAP 6 3 5 LIVER PROFILE: Recent Labs 10/07/19 0047 10/08/19 0256 10/09/19 0118 AST 36 42 30 ALT 24 23 20 BILITOT 0.6 0.7 0.8 ALKPHOS 127* 112 112 LABALBU 2.1* 2.1* 2.0* PROT 4.4* 4.5* 4.4* PT/INR: Recent Labs 10/07/19 0047 10/08/19 0256 10/09/19 0118 PROTIME 13.7* 15.3* 16.1* INR 1.3* 1.4* 1.5* CARDIAC ENZYMES: No results for input(s): TROPONINI in the last 72 hours. Procalcitonin: Lab Results Component Value Date PROCAL 0.26 10/07/2019 Objective: Vitals: BP 102/70 Pulse 105 Temp 98.8 F (37.1 C) (Temporal) Resp 18 Ht 5' 7 (1.702 m) Wt104 lb 4.8 oz (47.3 kg) SpO2 93% BMI 16.34 kg/m Pulse Ox: SpO2 Av.9 % Min: 86 % Max: 97 % Supplemental O2: O2 Flow Rate (L/min): 4 L/min General appearance: No apparent distress, appears stated age and cooperative with exam HEENT: Eyes: No scleral icterus Oral: Tongue is semi-moist Cardiovascular: S1S2 heard, tachy Respiratory: mild exp wheeze Abdomen: Soft, non-tender, non-distended with normal bowel sounds. Musculoskeletal: No obvious deformities seen Skin: No visible rashes or lesions. Assessment # Sepsis with septic Shock likely due to UTI with or without Pneumonia - Stopped zosyn on 10/08 per recommendations of antibx stwship. # Acute UTI - Stopped zosyn on 10/08 per recommendations of antibx stwship. # Possible pneumonia - Stopped zosyn on 10/08 per recommendations of antibx stwship. # Bilateral lung infiltrates - rule out pneumonia vs CHF # Acute respiratory failure with hypoxia/hypercarbia (resolved) with underlying hx of COPD (patientnot on home O2 or any home meds) s/p intubation, Pt extubated to nasal cannula since 10/06 - CTA chest negative for any acute PE at OSH. Infectious workup neg so far. CXR 10/06 showed improvement in pulmonary opacities (pulmonary edema??) Echo pending # Acute diarrhea with thickening of bowels on CT - treating for suspected C.diff with PO vanco. ID consulted and stool sample being resent. # Acute combined metabolic and respiratory acidosis - resolved # GI bleed (resolved) due to bleeding ulcer - Patient with up to 10 episodes of melanotic diarrhea daily at home prior to presentation, associated with intermittent sharp bilateral LQ abdominal pain - FOBT postive at OSH, Hb 6.8 on presentation. Seen by GI. - s/p EGD - 10cm long linear ulcerative area in body of stomach with oozing and signs 1-2 visible vessels that were clipped (4) and injectedwith epinepherine. On Protonix IV to BID # Acute blood lose anemia on chronic anemia - s/p transfusion # Ileus noted on KUB - per ICU team, patient is having BMs however repeat KUB showing persistent ileus although improved. Currently NPO/has NG tube. Surgery consulted to follow # Back pain, acute on chronic - CTA chest at outside hospital with no acute osseous abnormality. Lidocaine patch to affected area. IV pain meds prn # COPD - Not O2 requiring at home, only on PRN albuterol. Duoneb scheduled q4h, accuneb PRN SOB. Will avoid steroid therapy in the setting of GI bleed # Chronic alcohol use- Patient endorses drinking 5 beers daily. On prn ativan for withdrawal. 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 Prior records/notes/test results reviewed. Still with NG tube and NPO. Echo pending. No BNP ordered. Will order now. Will consult surgery to follow for persistent ileus although improving. Currently NOT on IVF on transfer out of ICU due to concern for pulmonary edema/fluid overload. Check stat BNP now. Also will consult ID for suspected Cdiff. Spoke with surgery. Check am labs. Continue all other tx the same. Echo is pending. Will place consult. Called and updated sister Alannah Boateng [phone] Addendum: Spoke with Dr. Dias who was kind to look into case. He reviewed EKG that stated prior that patient was in a.fib and Dr. Dias states it was NOT a.fib. Therefore will go ahead and cancel consult. Also spoke with antibx stwship. Will stop zosyn today. Advance Directive: Full Code Discharge planning: TBD KILO HELMS DO Division of Hospitalist Medicine Inpatient Medical Services PAGER: [phone] * Moriah Gallo SLP - 10/09/2019 9:15 AM EDT Speech Language Pathology RESEARCH AIDE attempted to see pt for BSE. Pt getting ECHO at bedside. Consult with bedside RN and physician.Pt continues to have NG set to suction with Increased output. Respiratory status continues to decline . Now requires 5 L nc. Will HOLD bedside swallow evaluation at this time and follow regarding status. Moriah Gallo MA,[facility]-RESEARCH AIDE * Dallas Leon RCP - 2019 3:24 PM EDT Patient Evaluation Form The patient is currently receiving duoneb qid Points 0 1 2 3 4 Points Totals Pulmonary Status (-/+) History Smoking history < 20 pack years Smoking history > 20 pack years Pulmonary Disorder (acute or chronic) Severe or Chronic with Exacerbation 4 Surgical Status No Surgery Trach PEG General Surgery Lower Abdominal Thoracic or Upper Abdominal Thoracic with Pulmonary Disorder 0 Chest X-ray Clear None Ordered Chronic Changes CXR results Pending Infiltrates, atelectasis, pleural effusion, or edema Infiltrates in more than one lobe Infiltrate + Atelectasis, &/or pleural effusion 2 Respiratory Pattern Regular, RR = 12-20 Increased, RR = 21-25 WILSON, irregular, or RR = 26-30 Decreased FEV1 or RR = 31-35 Severe SOB, used of of accessory muscles, or RR = > 35 0 Mental Status Alert, oriented, cooperative Confused, but follows commands Lethargic or un-able to follow commands Obtunded Comatose 0 Breath Sounds Clear to auscultation Decreased unilaterally or in bases only Decreased bilaterally Crackles or intermittent wheezes Wheezes 1 Cough Strong, spontaneous, & nonproductive Strong, spontaneous, & productive Weak, nonproductive Weak, productive or with wheezes No spontaneous cough or may require suctioning 0 Level of Activity Ambulatory Ambulatory with Assist Non-ambulatroy Paraplegic Quadriplegic 1 Triage 1 > 20 pts Triage 2 16-20 pts Triage 3 11- 15 pts Triage 4 6 - 10 pts Triage 5 0 - 5 pts TOTAL POINTS = 8 Triage Score = 4 Changing Therapy to duoneb bid & prn * Sivan Carlson DO - 2019 2:36 PM EDT ICU TRANSFER CHECKLIST Transfer Med Reconciliation (resume home meds if able, convert to PO if able) Complete Antibiotics (name, indication, duration, convert to PO if able) Yes,Zosyn Steroid (indication, duration, convert to PO if able) None Anticipated [place] Medications (ICU initiated) or Dose Changes and Indication No Permanently Discontinued Home Medications and Reason for medication contraindication No Jensen Catheter (please remove if able) Yes, indication mental status Central Line (please remove if able) No Transfer Discussed with: Dr. Sarbjit Lancaster If additional questions for ICU team within 24 hours of ICU transfer, page [phone] for clarifications. * Yoana Mcfarlane RD, LD - 2019 1:59 PM EDT Comprehensive Nutrition Assessment Type and Reason for Visit: Reassess Nutrition Recommendations/Plan: 1. Pt. NPO and should not remain without nutrition >72 hours. 2. Continue to monitor bowel function to determine appropriate route of nutrition intervention. 3. Monitor need of PN for bowel rest. 4. Continue to monitor and follow weekly. Nutrition Assessment: Pt. extubated, sleeping at time of visit. Per chart, pt has NG tube for ileus. Output still too much for bedside swallow evaluation - per RESEARCH AIDE. Malnutrition Assessment: Malnutrition Status: Insufficient data Context: Acute Illness Findings of the 6 clinical characteristics of malnutrition: Energy Intake: Unable to assess Weight Loss: Unable to assess Body Fat Loss: Unable to assess Muscle Mass Loss: Unable to assess Fluid Accumulation: Unable to assess Macroeconomics Professor Strength: Not Performed Estimated Daily Nutrient Needs: Energy (kcal): 25 - 30cal/kg CBW (53.1kg) = 1328 - 1593cal/day; Weight Used for Energy Requirements: Current(53.1kg) Protein (g): 1.1 -1.3g/kg CBW = 58 -69g/day; Weight Used for Protein Requirements: Enigma Fluid (ml/day): per MD order; Weight Used for Fluid Requirements: Nutrition Related Findings: + bowel sounds with distended abd. +1/non-pitting edema; Noted: Glu 106, Ca 7.4, Cr 0.27, PO4 2.0 Current Nutrition Therapies: Diet NPO Effective Now Exceptions are: Ice Chips Anthropometric Measures: Height: 5' 7 (170.2 cm) Current Body Weight: 136 lb 14.5 oz (62.1 kg)(+~19#/4 days) Enigma Body Weight: 135 lbs; % Enigma Body Weight 86.7 % BMI: 21.4 BMI Categories: Normal Weight (BMI 18.5-24.9) Nutrition Diagnosis: Inadequate oral intake related to altered GI function as evidenced by NPO or clear liquid status due to medical condition Nutrition Interventions: Food and/or Nutrient Delivery: Continue NPO Nutrition Education/Counseling: No recommendation at this time Coordination of Nutrition Care: Continued Inpatient Monitoring Goals: Pt. to receive nutrition within the next 48 hours. Nutrition Monitoring and Evaluation: Food/Nutrient Intake Outcomes: Diet Advancement/Tolerance Physical Signs/Symptoms Outcomes: Biochemical Data, Nutrition Focused Physical Findings, Skin, Weight, Diarrhea, GI Status, Nausea or Vomiting, Fluid Status or Edema, Hemodynamic Status Discharge Planning: Too soon to determine Contact: pager [phone] * Daylin Ray SLP - 2019 12:20 PM EDT Speech Language Pathology Spoke with nursing, pt has NG tube for ileus. Output still too much for bedside swallow evaluation.Nursing to contact ST today if this should change; otherwise will check back tomorrow. Daylin Ray MA, CCC-RESEARCH AIDE * Sivan Carlson, DO - 2019 7:41 AM EDT ICU Progress Note Dory Basurto : 1955(63 y.o.) Date: 2019 Team: ICU Attending: Dr. Sherry Suarez Chief Complaint: SOB Subjective: Overnight/AM events: Patient now extubated and off precedex drip, on 3Lnasal cannula. No signs or symptoms of bleeding. On protonix drip per GI. NG tube present with non-bloody bilious fluid output -- from 4:00AM to 8:00AM pt has had approximately 850- 900cc. Upon extubation, pt did have large emesis when ETT was pulledand KUB showed persistent ileus. Pt has been having BMs(+diarrhea) during her ICU stay, however. Ptwill remain NPO due to ileus. EKG obtained this AM b/c pt seemed to have atrial fibrillation per monitor, denied SOB, CP, abdominal pain. She does have a recent history of paroxysmal atrial fibrillation, however, due to GI bleed pt cannot be anti-coagulated. EKG showed atrial fibrillation, lopressor was given this AM. Cortisol ordered to evaluate for BP, 13.5. HIDA cancelled due to lack of clinical symptoms and negative infectious workup. Echo pending. Afternoon update: Asymptomatic. Stable for floor transfer. Review of Systems Constitutional: Negative for activity change, appetite change, chills and fever. Respiratory: Negative for shortness of breath. Cardiovascular: Negative for chest pain and palpitations. Gastrointestinal: Positive for diarrhea. Negative for abdominal distention, abdominal pain, blood in stool, constipation, nausea and vomiting. Genitourinary: Negative for difficulty urinating. Skin: Negative for color change, pallor and rash. Neurological: Negative for light-headedness. Scheduled Meds: miconazole Topical BID piperacillin-tazobactam 4.5 g Intravenous Q6H [START ON 10/09/2019] ipratropium-albuterol 1 ampule Inhalation BID pantoprazole 40 mg Intravenous BID And sodium chloride (PF) 10 mL Intravenous BID [Held by provider] lactulose 30 g Oral BID chlorhexidine 15 mL Mouth/Throat BID lidocaine 1 patch Transdermal Daily thiamine 100 mg Intravenous Daily folic acid IVPB 1 mg Intravenous Daily Continuous Infusions: dexmedetomidine Stopped (10/07/19 1310) Objective: VITALS: BP 100/64 Pulse 99 Temp 99.1 F (37.3 C) (Temporal) Resp 19 Ht 5' 7 (1.702 m) Wt 136 lb 14.5 oz (62.1 kg) SpO2 94% BMI 21.44 kg/m CURRENT PULSE OXIMETRY: SpO2: 94 % I/O: 10/06 0701 - 10/07 0700 In: 1775 [I.V.:693] Out: 1375 [Urine:575] Ventilator Settings: Vent Mode: AC/VC+ Rate Set: 12 bmp Vt Ordered: 400 mL Pressure Support: 0 cmH20 PEEP/CPAP: 8 FiO2 : 40 % Oxygen Delivery - O2 Flow Rate (L/min): 3 L/min Invasive Lines and Dates: None Intubation Date: 10/04 - 10/06 General Appearance: []WDWN []Obese [x]Cachectic [x]Thin []ill Skin: Temperature [x]Warm []Cool Rash []Yes [x]No Tattoo(s) []Yes [x]No HEENT: Pupils round and react [x]Yes []No Sclera []Icteric [x]Non-Icteric Conjunctiva []Injected [x]Non-Injected Pinnae [x]Normal []Other Dentitian [][place] Teeth [x]Dentures Oral Mucosa [x][place] []Moist []Dry Oral ETT []Present [x]Absent Neck: Trachea midline [x]Yes []No Thyromegaly []Yes [x]No Crepitus []Present [x]Absent Jvd []Present [x]Absent Lungs: []Clear [x]Crackles [x]Wheezes [][place] Respiratory effort []Labored [x]Non-Labored Heart: Rate [x]Regular []Irregular []Tachycardia []Bradycardia Rhythm []Regular [x]Irregular Murmur []Present [x]Absent Peripheral Edema []Present [x]Absent Abdomen: [x]Soft Bowel Sounds [x]Present []Absent []Tender [x]Non-Tender []Distended []Non-distended Hernia []Present [x]Absent Organomegaly []Present [x]Absent []Scar Extremities: Cyanosis []Present [x]Absent STEELE ([x]RUE [x]RLE [x]LUE [x]LLE) Neurologic: [place] []Yes [x]No Corneal reflexes [x]Present []Absent Plantar reflexes []Up []Down []Absent Withdraws to tactile [x]Yes []No Follows Commands [x]Yes []No []Unresponsive to verbal []Cranial nerves grossly intact []Sensation grossly intact Psych: Alert [x]yes []no Oriented []x0 []x1 []x2 [x]x3 Affect [x]Normal []Flat []Agitated []Anxious []Calm []Sedated []NAD [facility] within last 72 hours BMP: Recent Labs 10/06/19 0847 10/07/19 0047 10/08/19 0256 NA 133* 133* 135 K 4.1 3.1* 3.7 CL 105 106 108* CO2 24 22 24 BUN 2* <2* <2* CREATININE 0.33* 0.26* 0.27* CALCIUM 7.6* 7.2* 7.4* MG 1.4* 3.6* 1.7 PHOS 1.5* 3.0 2.0* LFTS: Recent Labs 10/06/19 0847 10/07/19 0047 10/08/19 0256 AST 48* 36 42 ALT 26 24 23 PROT 4.9* 4.4* 4.5* LABALBU 2.4* 2.1* 2.1* BILITOT 1.0 0.6 0.7 ALKPHOS 128* 127* 112 Glucose: Recent Labs 10/05/19 1713 10/05/19 2304 10/06/19 0847 10/07/19 0047 10/08/19 0256 GLUCOSE 113* 111* 94 143* 106* CBC: Recent Labs 10/06/19 0542 10/06/19 0847 10/07/19 0047 10/08/19 0256 WBC 11.7* -- 11.5* 16.3* HGB 10.5* 11.4* 11.0* 10.3* HCT 31.2* 34.4* 33.4* 31.7* PLT 269 -- 274 266 MCV 82.7 -- 82.4 83.7 RDW 17.2* -- 17.6* 18.1* ABGs: Recent Labs 10/06/19 0320 10/07/19 0339 PHART 7.526* 7.533* [id number] 33.0* 26.2* PO2ART 119.3* 97.3 [id number] 26.7* 21.5 [id number] 98.5 97.5 FIO2A 0.55 40% Lactic Acid: No results for input(s): LACTA in the last 72 hours. INR: Recent Labs 10/06/19 0542 10/07/19 0047 10/08/19 0256 INR 1.4* 1.3* 1.4* pro-BNP: No results for input(s): NTPROBNP in the last 72 hours. Cardiac Injury Profile: No results for input(s): CKTOTAL, CKMB, TROPONINI in the last 72 hours. Labs in Last 3 months: Lab Results Component Value Date INR 1.4 (H) 2019 Imaging: KUB 10/06 - IMPRESSION: Bowel gas and small bowel and colon compatible with ileus Residual enteric and urinary contrast from prior CT CXR 10/06 - IMPRESSION: Improvement in pulmonary opacities, probably due to improving edema. No change in bilateral pleural effusions CT A/P 10/05: IMPRESSION: 1. Bilateral moderate pleural effusions with compressive atelectasis and lower lung infiltrates, overall increased in size compared to prior exam 3 days previously. 2. Infectious/inflammatory changes with thickening of the wall of the descending colon, sigmoid colon, and rectum. Oral contrast is present to the level of the descending colon without obstruction. 3. Intra-abdominal ascites, small in volume. Diffuse edema/anasarca throughout the soft tissue. 4. Hepatic steatosis. 5. Limited evaluation of the enhancement of the kidneys, as above. There appears to be some persistent decreased enhancement on the right and left which may represent pyelonephritis versus wedged shaped infarcts. CT Abd/Pel 10/02 - IMPRESSION: 1. No pneumoperitoneum to suggest hollow viscus perforation. Mild fat stranding at the splenic flexure, which may represent mild colitis. Mild perigastric fat stranding; correlate for possible gastritis. 2. Mildly dilated small bowel. Findings could be related to ileus or obstruction. No transition point is seen. 3. Wedge-shaped area of hypoenhancement in both kidneys, which may be related to polyp right is four bilateral renal infarcts. 4. Small bilateral pleural effusions. Bibasilar atelectasis. 5. Mildly distended gallbladder, which could be due to fasting but if there is concern for cholecystitis, ultrasound would be recommended. 6. Hepatic steatosis. US Abd 10/02- IMPRESSION: Distended gallbladder with sludge and mild gallbladder wall thickening with pericholecystic fluid which may be secondary to fasting state and liver disease. Negative Lieberman sign is reported. Acute cholecystitis is less likely. HIDA scan may be a helpful physiologic test. Enlarged fatty liver. No ascites. Small right pleural effusion EGD 10/04: 10cm long linear ulcerative area in body of stomach with oozing and signs 1-2 visible vessels that were clipped (4) and injected with epinepherine Cultures: BCx 10/02 - NG4D RCx 10/02 - NGTD UCx 10/02 - normal carole RVP, UAgs - negative Gram stain 10/04 - Few polymorphonuclear cells/lpf. Few epithelial cells/lpf. No organisms seen. Assessment and Plan: Principal Problem: GI bleed Active Problems: Sepsis (HCC) Acute respiratory failure with hypoxia (HCC) COPD (chronic obstructive pulmonary disease) (HCC) Tobacco abuse Chronic alcohol use Acute midline thoracic back pain Elevated serum creatinine Shock (HCC) Resolved Problems: * No resolved hospital problems. * TODAY'S SUMMARY 10/07: Elevated WBC and febrile. Recent CT ab/pelvis showed findings concerning for infectious/inflammatory changes within parts of the colon. Unasyn switched back to Zosyn. Multiple watery bowel movements overnight, d/c lactulose. Ordered full stool PCR/C. diff. Bowel regimen changed from scheduled to prn. Shock, septic vs hypovolemic (resolved) -Originally, patient met SIRS criteria in ED, and on presentation to OSH met criteria for severe sepsis (lactic acidosis). Procal 17 on presentation, 1.8 on recheck. Now down to 0.26 on most recent check. -Today patient is febrile at 100.4 and WBC has increased from 11.5 to 16.3. - Previously hypotensive in the setting of GI bleed, melanotic stools - BCx 10/02 - NG4D - UA showing LE and WBC - UCx 10/02 - normal - Transitioned to Unasyn from Vanc/Zosyn for 5 day total abx - cultures diop negative - abx therapy completed 10/06 - CT abdomen/peLVIS -- see above impression - HIDA scan cancelled in the setting of negative infectious workup and no clinical signs of AC Acute hypoxic respiratory failure (resolved) - In the setting of COPD, patient not on home O2 or any home meds -Pt extubated to nasal cannula since 10/06 - Anemia from GI bleed likely contributory - CTA chest negative for any acute PE at OSH - Infectious workup neg so far - Monitor patient fluid status closely; no known history of CHF however unknown baseline EF and receiving aggressive IVF resuscitation - Net positive +9 L - CXR 10/06 showed improvement in pulmonary opacities - ECHO ordered to rule out CHF, pending - Dc'd Fentanyl PRN and Versed PRN - Dilaudid 0.5 mg q4h for pain control - Has been off precedex drip GI bleed (resolved) - Patient with up to 10 episodes of melanotic diarrhea daily at home prior to presentation, associated with intermittent sharp bilateral LQ abdominal pain - FOBT postive at OSH, Hb 6.8 on presentation - GI signed off - s/p EGD - 10cm long linear ulcerative area in body of stomach with oozing and signs 1-2 visible vessels that were clipped (4) and injected with epinepherine - Switched Protonix drip to BID - Hgb 10.3 this AM, s/p 4 units total - follow daily CBC - NPO and NG tube for ileus - If rebleeding suspected, re consult GI and IR Ileus noted on KUB - Previously, abdomen distended and diffusely tender to palpation on exam -Today, however, abdominal exam unremarkable -KUB yesterday morning showed evidence of persistent ileus, however, pt has been having BMs during the course of her ICU stay -Pt has been having large amounts of non-bloody bilious output from NG this AM. Will continue to monitor this. 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 - GI signed off - Continue Lactulose 30 qid Back pain, acute on chronic - Patient with stated history of chronic back fractures, patient takes tylenol and advil at home - CTA chest at outside hospital with no acute osseous abnormality - Lidocaine patch to affected area - Dilaudid 0.5 mg q4h PRN severe pain (started for low CrCl) COPD - Not O2 requiring at home, only on PRN albuterol - Duoneb scheduled q4h, accuneb PRN SOB - Will avoid steroid therapy in the setting of GI bleed Chronic alcohol use - Patient endorses drinking 5 beers daily - CIWA ordered - consider dc'ing - Daily supplementation with thiamine and folate Tobacco abuse - 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 History, labs, imaging studies, and electronic medical record have been reviewed by me. This note documented by the [x]powerhouse operator []JAMAL reflects my history, exam, and medical decision making. I have reviewed and agree with the care plan. Changes were made in the orders as necessary. ROSdocumentation was reviewed and negative unless otherwise stated in HPI. - continues to have significant NGT output, multiple watery BMs overnight per RN: change bowel regimen meds to PRN for now - received lopressor for new onset AFib this AM, rate now low 100s, BP stable continue PRN lopressor, hold AC with recent UGIB - new fevers this AM with increased WBC today: has been on abx (de-escalated to Unasyn) - repeat PCL - CT A/P with bowel wall thickening will change abx to Zosyn for now given fevers/leukocytosis and check stool PCR - no bloody BMs or bloody NG output s/p UGIB on admission, hgb stable - decreased UOP overnight: repeat urine lytes, if c/w intrinsic renal dysfunction consider dose lasix - stable for floor transfer (tele given new onset AFib) * Norman Fritz RCP - 10/07/2019 9:45 AM EDT [facility] Department Progress Note Spontaneous Breathing Trial (SBT) Start: 2-3 min to Stabilize After 15 min After 30 min HR 73 85 SpO2 (%) 100 98 RR 22 30 VT (L) .323 .347 Total RSBI (RR/VT in Liters) 68.1 86.5 Pass SBT (RSBI must be?105 to pass) NA NA Yes Comments (state reason if SBT failed): placed on SPONT TC trial Additional data if requested: NIF = VC = Name of physician results were reported to: Thank you for involving Respiratory in the care of this patient, * Tierney White MD - 10/07/2019 9:14 AM EDT ICU Progress Note Dory Basurto : 1955(63 y.o.) Date: October 07, 2019 Team: ICU Attending: Dr. Edouard Kenney Chief Complaint: SOB Subjective: Patient remains intubated and on precedex drip. No signs or symptoms of bleeding. On protonix drip per GI. No issues overnight. She passed SBT this AM. NG tube present with bilious fluid. Afternoon update: patient extubated to nasal cannula, NG remains but had large emesis when ETT pulled. KUB ordered and showing persistent ileus despite having BM yesterday. She is net positive 9L andsome ?history of CHF so ECHO was ordered. Protonix transitioned to BID. Cortisol ordered to evaluate low BP. HIDA cancelled. RESEARCH AIDE ordered and patient passed but will remain NPO due to ileus. Review of Systems Unable to perform ROS: Intubated Scheduled Meds: potassium chloride 10 mEq Intravenous Q1H lactulose 30 g Oral 4 times per day ampicillin-sulbactam 1.5 g Intravenous Q6H chlorhexidine 15 mL Mouth/Throat BID bisacodyl 10 mg Rectal Daily lidocaine 1 patch Transdermal Daily sodium chloride flush 10 mL Intravenous 2 times per day thiamine 100 mg Intravenous Daily folic acid IVPB 1 mg Intravenous Daily ipratropium-albuterol 1 ampule Inhalation Q4H WA Continuous Infusions: dexmedetomidine 0.4 mcg/kg/hr (10/07/19 0814) pantoprozole (PROTONIX) infusion 8 mg/hr (10/07/19 0617) PRN meds used in last 24hrs: none Objective: VITALS: BP (!) 89/39 Pulse 74 Temp 98 F (36.7 C) (Temporal) Resp 19 Ht 5' 7 (1.702 m) Wt147 lb 4.3 oz (66.8 kg) SpO2 100% BMI 23.07 kg/m CURRENT PULSE OXIMETRY: SpO2: 100 % I/O: 10/05 0701 - 10/06 0700 In: 1634.1 [I.V.:1134.1] Out: 1455 [Urine:955] Ventilator Settings: Vent Mode: AC/VC+ Rate Set: 12 bmp Vt Ordered: 400 mL Pressure Support: 0 cmH20 PEEP/CPAP: 8 FiO2 : 40 % Oxygen Delivery - O2 Flow Rate (L/min): 4 L/min Invasive Lines and Dates: None Intubation Date: 10/04 - 10/06 General Appearance: []WDWN []Obese [x]Cachectic [x]Thin []ill Skin: Temperature [x]Warm []Cool Rash []Yes [x]No Tattoo(s) []Yes [x]No HEENT: Pupils round and react [x]Yes []No Sclera []Icteric [x]Non-Icteric Conjunctiva []Injected [x]Non-Injected Pinnae [x]Normal []Other Dentitian [][place] Teeth [x]Dentures Oral Mucosa [x][place] []Moist []Dry Oral ETT []Present [x]Absent Neck: Trachea midline [x]Yes []No Thyromegaly []Yes [x]No Crepitus []Present [x]Absent Jvd []Present [x]Absent Lungs: []Clear [x]Crackles [x]Wheezes []Rhonchi Respiratory effort []Labored [x]Non-Labored Heart: Rate [x]Regular []Irregular []Tachycardia []Bradycardia Rhythm []Regular [x]Irregular Murmur []Present [x]Absent Peripheral Edema []Present [x]Absent Abdomen: [x]Soft Bowel Sounds [x]Present []Absent [x]Tender []Non-Tender []Distended []Non-distended Hernia []Present [x]Absent Organomegaly []Present [x]Absent []Scar Extremities: Cyanosis []Present [x]Absent STEELE ([x]RUE [x]RLE [x]LUE [x]LLE) Neurologic: SHUNGNAK []Yes []No Corneal reflexes [x]Present []Absent Plantar reflexes []Up []Down []Absent Withdraws to tactile [x]Yes []No Follows Commands []Yes [x]No []Unresponsive to verbal []Cranial nerves grossly intact []Sensation grossly intact Psych: Alert [x]yes []no Oriented []x0 []x1 []x2 [x]x3 Affect []Normal []Flat []Agitated []Anxious []Calm []Sedated [x]NAD Select Labs within last 72 hours BMP: Recent Labs 10/05/1945810/05/19 2304 10/06/19 0847 10/07/1947 NA 137 < > 136 133* 133* K 2.9* < > 3.1* 4.1 3.1* CL 106 < > 106 105 106 CO2 22 < > 24 24 22 BUN 6* < > 3* 2* <2* CREATININE 0.44* < > 0.36* 0.33* 0.26* CALCIUM 7.6* < > 7.4* 7.6* 7.2* MG 1.6 -- -- 1.4* 3.6* PHOS 2.2* -- -- 1.5* 3.0 < > = values in this interval not displayed. LFTS: Recent Labs 10/05/19 04510/06/1947 10/07/1947 AST 49* 48* 36 ALT 29 26 24 PROT 5.0* 4.9* 4.4* LABALBU 2.7* 2.4* 2.1* BILITOT 0.5 1.0 0.6 ALKPHOS 128* 128* 127* Glucose: Recent Labs 10/04/19 1134 10/04/19 2322 10/05/19 0459 10/05/19 1103 10/05/19 1713 10/05/19 2304 10/06/19 0847 10/07/19 0047 GLUCOSE 74 96 97 116* 113* 111* 94 143* CBC: Recent Labs 10/04/19 2322 10/06/19 0542 10/06/19 0847 10/07/19 0047 WBC 10.6 -- 11.7* -- 11.5* HGB 6.7* < > 10.5* 11.4* 11.0* HCT 20.6* < > 31.2* 34.4* 33.4* PLT 332 -- 269 -- 274 MCV 81.0 -- 82.7 -- 82.4 RDW 17.7* -- 17.2* -- 17.6* < > = values in this interval not displayed. ABGs: Recent Labs 10/05/19 1526 10/06/19 0320 10/07/19 0339 PHART 7.385 7.526* 7.533* [id number] 44.6 33.0* 26.2* PO2ART 95.1 119.3* 97.3 JIH2ENK 26.1* 26.7* 21.5 H7QTEWNP 97.3 98.5 97.5 FIO2A 55%- 0.55 40% Lactic Acid: No results for input(s): LACTA in the last 72 hours. INR: Recent Labs 10/05/19 0459 10/06/19 0542 10/07/19 0047 INR 1.3* 1.4* 1.3* pro-BNP: No results for input(s): NTPROBNP in the last 72 hours. Cardiac Injury Profile: No results for input(s): CKTOTAL, CKMB, TROPONINI in the last 72 hours. Labs in Last 3 months: Lab Results Component Value Date INR 1.3 (H) 10/07/2019 Imaging: CT Abd/Pel 10/02 - IMPRESSION: 1. No pneumoperitoneum to suggest hollow viscus perforation. Mild fat stranding at the splenic flexure, which may represent mild colitis. Mild perigastric fat stranding; correlate for possible gastritis. 2. Mildly dilated small bowel. Findings could be related to ileus or obstruction. No transition point is seen. 3. Wedge-shaped area of hypoenhancement in both kidneys, which may be related to polyp right is four bilateral renal infarcts. 4. Small bilateral pleural effusions. Bibasilar atelectasis. 5. Mildly distended gallbladder, which could be due to fasting but if there is concern for cholecystitis, ultrasound would be recommended. 6. Hepatic steatosis. US Abd 10/02- IMPRESSION: Distended gallbladder with sludge and mild gallbladder wall thickening with pericholecystic fluid which may be secondary to fasting state and liver disease. Negative Lieberman sign is reported. Acute cholecystitis is less likely. HIDA scan may be a helpful physiologic test. Enlarged fatty liver. No ascites. Small right pleural effusion KUB 10/06 - IMPRESSION: Bowel gas and small bowel and colon compatible with ileus Residual enteric and urinary contrast from prior CT CXR 10/06 - IMPRESSION: Improvement in pulmonary opacities, probably due to improving edema. No change in bilateral pleural effusions EGD 10/04: 10cm long linear ulcerative area in body of stomach with oozing and signs 1-2 visible vessels that were clipped (4) and injected with epinepherine Cultures: BCx 10/02 - NG4D RCx 10/02 - NGTD UCx 10/02 - normal carole RVP, UAgs - negative Gram stain 10/04 - Few polymorphonuclear cells/lpf. Few epithelial cells/lpf. No organisms seen. Assessment and Plan: Principal Problem: GI bleed Active Problems: Sepsis (HCC) Acute respiratory failure with hypoxia (HCC) COPD (chronic obstructive pulmonary disease) (HCC) Tobacco abuse Chronic alcohol use Acute midline thoracic back pain Elevated serum creatinine Shock (HCC) Resolved Problems: * No resolved hospital problems. * Shock, septic vs hypovolemic (resolved) - Patient met SIRS criteria in ED, and on presentation to OSH met criteria for severe sepsis (lactic acidosis). Procal 17 on presentation, 1.8 on recheck. Now down to 0.25 on most recent check. - Patient remains afebrile, leukocytosis improving 25>14>11.5 - Previously hypotensive in the setting of GI bleed, melanotic stools - BCx 10/02 - NG4D - UA showing LE and WBC - UCx 10/02 - normal - Transitioned to Unasyn from Vanc/Zosyn for 5 day total abx - cultures diop negative - abx therapy completed 10/06 - CT abdomen/pel showing - Small bilateral pleural effusions. Bibasilar atelectasis, distended gallbladder - US showing sludge + mild GB wall thickening - fasting vs AC (less likely based on presentation) - HIDA scan cancelled in the setting of negative infectious workup and no clinical signs of AC - Start Lasix 20 mg IV daily if BP ok off precedex Acute hypoxic respiratory failure (resolved) - In the setting of COPD, patient not on home O2 or any home meds - Anemia from GI bleed likely contributory - CTA chest negative for any acute PE at OSH - Infectious workup neg so far - Monitor patient fluid status closely; no known history of CHF however unknown baseline EF and receiving aggressive IVF resuscitation - Net positive +9 L - CXR improved this AM - ECHO ordered to rule out CHF - Extubated to [place] 10/06 - Dc'd Fentanyl PRN and Versed PRN - Dilaudid 0.5 mg q4h for pain control - Wean precedex drip GI bleed (resolved) - Patient with up to 10 episodes of melanotic diarrhea daily at home prior to presentation, associated with intermittent sharp bilateral LQ abdominal pain - FOBT postive at OSH, Hb 6.8 on presentation - GI signed off - s/p EGD - 10cm long linear ulcerative area in body of stomach with oozing and signs 1-2 visible vessels that were clipped (4) and injected with epinepherine - Switched Protonix drip to BID - Hgb 10.3 this AM, s/p 4 units total - follow daily CBC - NPO for ileus - If rebleeding suspected, re consult GI and IR Ileus noted on KUB - Abdomen previously distended and diffusely tender to palpation on exam - 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 - Had 1 BM yesterday - GI signed off - Continue Lactulose 30 qid - KUB this AM showing persistence of ileus - Continue NG to suction - Continue NPO status - RESEARCH AIDE ordered for when ileus resolved Back pain, acute on chronic - Patient with stated history of chronic back fractures, patient takes tylenol and advil at home - CTA chest at outside hospital with no acute osseous abnormality - Lidocaine patch to affected area - Dilaudid 0.5 mg q4h PRN severe pain (started for low CrCl) COPD - Not O2 requiring at home, only on PRN albuterol - Duoneb scheduled q4h, accuneb PRN SOB - Will avoid steroid therapy in the setting of GI bleed Chronic alcohol use - Patient endorses drinking 5 beers daily - CIWA ordered - consider dc'ing - Daily supplementation with thiamine and folate Tobacco abuse - 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 Labs, imaging studies and electronic medical record have been reviewed by me. This note documented and discussed by the [x]powerhouse operator []JAMAL reflects my history, exam and medical decision making. I have reviewed andagree with the care plan. Changes were made in the orders as necessary. My history, exam, assessment and plan are as follows. Critical care time spent excluding separately billable procedures is 33 minutes. Acute resp failure, intubated 10/04 Acute blood loss anemia, GI bleed s/p EGD stomach vessel clipped Shock, hypotension sepsis and hemorrhagic Ileus pAfib Should complete 5 day course abx today SBT for extubation Hypotension, check ECHO, baseline cortisol Wean off precedex PHYSICAL EXAM: General Appearance: [x]WDWN []Obese []Cachectic []Thin []ill Skin: Temperature [x]Warm []Cool Rash []Yes []No Tattoo(s) []Yes []No HEENT: Pupils round and react [x]Yes []No Sclera []Icteric []Non-Icteric Conjunctiva []Injected []Non-Injected Pinnae []Normal []Other Dentitian [][place] Teeth []Dentures []edentulous Oral Mucosa [x][place] []Moist []Dry Oral ETT [x]Present []Absent Neck: Trachea midline [x]Yes []No Thyromegaly []Yes []No Crepitus []Present []Absent Jvd []Present []Absent Lungs: [x]Clear []Crackles []Wheezes []Rhonchi Respiratory effort []Labored [x]Non-Labored Heart: Rate [x]Regular []Irregular []Tachycardia []Bradycardia Rhythm [x]Regular []Irregular Murmur []Present []Absent Peripheral Edema []Present [x]Absent Abdomen: [x]Soft Bowel Sounds [x]Present []Absent []Tender [x]Non-Tender []Distended [x]Non-distended Hernia []Present []Absent Organomegaly []Present []Absent []unable to assess 2/2 body habitus []Scar Extremities: Cyanosis []Present []Absent STEELE ([x]RUE [x]RLE [x]LUE [x]LLE) Neurologic: SHUNGNAK []Yes [x]No Corneal reflexes []Present []Absent Plantar reflexes []Up []Down []Absent Withdraws to tactile []Yes []No Follows Commands [x]Yes []No []Unresponsive to verbal []Cranial nerves grossly intact []Sensation grossly intact Psych: Alert [x]yes []no Oriented []x0 []x1 []x2 []x3 Affect []Normal []Flat []Agitated []Anxious [x]Calm []Sedated []NAD * Ariadna Hays RCP - 10/07/2019 5:21 AM EDT 10/07/19 0520 Cough/Sputum Sputum How Obtained None * Denise Larios RPH - 10/06/2019 12:24 PM EDT Vancomycin therapy has been discontinued by Dr. Griffith on 10/06/19. Thank you for the consult. Pharmacy signing off for vancomycin dosing. Denise Larios PharmD Date: 10/06/19 Time: 12:23 PM * Selma Alcantara - 10/06/2019 8:54 AM EDT Patient's nurse stated that patient is still not able to tolerate HIDA scan today. I informed her that I will have a dose available tomorrow, and I will call the floor first thing Tuesday morning (10/07/2019) to check on patient progress and to see if she will be able to go forward with the study. * Janelle Cho RCP - 10/06/2019 8:31 AM EDT Tried TC trial pt had low tidal volumes and high resp rate * Dedrick Jasmine MD - 10/06/2019 8:31 AM EDT GASTROENTEROLOGY PROGRESS NOTE Patient: Dory Basurto : 1955 Primary Care Physician: No primary care provider on file. Subjective: Patient remains intubated but arousable and able to nod in response to questions. Denies abdominal pain or nausea. One BM yesterday s/p EGD which was brown in color per nursing. No hematemesis or BMsovernight. Scheduled Meds: chlorhexidine 15 mL Mouth/Throat BID vancomycin 1,000 mg Intravenous Q12H piperacillin-tazobactam 4.5 g Intravenous Q6H bisacodyl 10 mg Rectal Daily lidocaine 1 patch Transdermal Daily sodium chloride flush 10 mL Intravenous 2 times per day thiamine 100 mg Intravenous Daily folic acid IVPB 1 mg Intravenous Daily ipratropium-albuterol 1 ampule Inhalation Q4H WA Continuous Infusions: dexmedetomidine 0.3 mcg/kg/hr (10/06/19 0346) pantoprozole (PROTONIX) infusion 8 mg/hr (10/06/19 0636) Objective: BP 113/61 Pulse 71 Temp 97.1 F (36.2 C) (Temporal) Resp 21 Ht 5' 7 (1.702 m) Wt 144 lb 2.9 oz (65.4 kg) SpO2 100% BMI 22.58 kg/m I/O last 3 completed shifts: In: [I.V.:1991.9] Out: 786 [Urine:786] GENERAL: Intubated but able to nod in response to questions. ABD: + BS, soft, non-tender and non-distended. No hepatosplenomegaly. No mass felt. No rebound or guarding. EXT: No C/C/E. No muscle atrophy. CBC: Recent Labs 10/04/19 2322 10/05/19 1713 10/05/19 2304 10/06/19 0542 WBC 10.6 -- -- -- 11.7* HGB 6.7* < > 10.6* 10.3* 10.5* HCT 20.6* < > 32.4* 31.7* 31.2* PLT 332 -- -- -- 269 < > = values in this interval not displayed. CMP: Recent Labs 10/05/19 1713 10/05/19 2304 NA 134* 136 K 3.7 3.1* CL 105 106 CO2 24 24 BUN 4* 3* CREATININE 0.38* 0.36* GLUCOSE 113* 111* CALCIUM 7.5* 7.4* HEPATIC: Recent Labs 10/04/19 0446 10/05/19 0459 AST 47* 49* ALT 33 29 BILITOT 0.2 0.5 ALKPHOS 148* 128* LIPASE/AMYLASE: Recent Labs 10/03/19 1012 10/03/19 1136 LIPASE 28 33 LACTATE: Recent Labs 10/03/19 1012 LACTA 1.0 TROPONIN: No results for input(s): TROPONINI in the last 72 hours. BNP: No results for input(s): BNP in the last 72 hours. LIPIDS: No results for input(s): CHOL, HDL in the last 72 hours. Invalid input(s): LDLCALCU INR: Recent Labs 10/05/19 0459 10/06/19 0542 INR 1.3* 1.4* PROBLEMS: Principal Problem: GI bleed Active Problems: Sepsis (HCC) Acute respiratory failure with hypoxia (HCC) COPD (chronic obstructive pulmonary disease) (HCC) Tobacco abuse Chronic alcohol use Acute midline thoracic back pain Elevated serum creatinine Shock (HCC) Resolved Problems: * No resolved hospital problems. * ASSESSMENT 1. Septic vs. Hemorrhagic shock 2. Melena 3. Acute blood loss anemia 4. Abdominal pain - improved 5. Back pain 6. Daily ETOH use -Patient is s/p EGD yesterday with Dr. Elias which showed esophagitits with a 10cm long lineralulcerative area in the body of the stomach which was oozing with visible vessels that were clipped (4) and injected with epinephrine. -Hemoglobin has remained stable overnight (10.6<10.3<10.5) -No signs of bleeding overnight -Continue PPI drip for one more day, then switch to BID -At this time Gi will sign off. If evidence of re-bleed please reconsult but patient will likely require IR if rebleed does occur. Attending Supervising Physician's Attestation Statement I performed a history and physical examination on the patient and discussed the management with thephysician assistant engineer/VENEER JOINTER OFFBEARER. I reviewed and agree with the findings and plan as documented in her note. Long linear gastric ulcer with visible vessel s/p epi and clips. HGB stable and no clinical evidence of recurrent bleeding Plan: 1- consider repeat EGD outpatient to eval healing 2- PPI gtt and then BID 3- Treat for H pylori if positive 4- avoid NSAIDs Dedrick Jasmine MD, [facility] [place] Cornice Upholsterer * Paco Cummings RCP - 10/06/2019 5:47 AM EDT 10/06/19 0500 Spontaneous Breathing Trial (SBT) RT Doc Contraindications to SBT? FiO2 > 50% * Tierney White MD - 10/06/2019 5:43 AM EDT ICU Progress Note Dory Basurto : 1955(63 y.o.) Date: October 06, 2019 Team: ICU Attending: Dr. Edouard Kenney Chief Complaint: SOB Subjective: A fib noted on monitor, rate controlled. No meds given, EKG ordered. Patient agitated and precedex started. She remains intubated. No signs or symptoms of bleeding. KUB and CXR this AM for ileus and intubation. On protonix drip per GI. Review of Systems Unable to perform ROS: Intubated Scheduled Meds: potassium chloride 10 mEq Intravenous Q1H chlorhexidine 15 mL Mouth/Throat BID vancomycin 1,000 mg Intravenous Q12H piperacillin-tazobactam 4.5 g Intravenous Q6H bisacodyl 10 mg Rectal Daily lidocaine 1 patch Transdermal Daily sodium chloride flush 10 mL Intravenous 2 times per day thiamine 100 mg Intravenous Daily folic acid IVPB 1 mg Intravenous Daily ipratropium-albuterol 1 ampule Inhalation Q4H WA Continuous Infusions: dexmedetomidine 0.3 mcg/kg/hr (10/06/19 0346) pantoprozole (PROTONIX) infusion 8 mg/hr (10/05/19 171) PRN meds used in last 24hrs: Ativan 2 mg x2 overnight Objective: VITALS: BP 108/64 Pulse 92 Temp 97.8 F (36.6 C) (Temporal) Resp (!) 33 Ht 5' 7 (1.702 m) Wt 117 lb 1.6 oz (53.1 kg) SpO2 100% BMI 18.34 kg/m CURRENT PULSE OXIMETRY: SpO2: 100 % I/O: 10/04 0701 - 10/05 0700 In: 1958 [I.V.:1958] Out: 706 [Urine:706] Ventilator Settings: Vent Mode: AC/VC+ Rate Set: 18 bmp Vt Ordered: 400 mL Pressure Support: 0 cmH20 PEEP/CPAP: 8 FiO2 : 55 % Oxygen Delivery - O2 Flow Rate (L/min): 4 L/min Invasive Lines and Dates: None Intubation Date: 10/04 - General Appearance: []WDWN []Obese [x]Cachectic [x]Thin []ill Skin: Temperature [x]Warm []Cool Rash []Yes [x]No Tattoo(s) []Yes [x]No HEENT: Pupils round and react [x]Yes []No Sclera []Icteric [x]Non-Icteric Conjunctiva []Injected [x]Non-Injected Pinnae [x]Normal []Other Dentitian [][place] Teeth [x]Dentures Oral Mucosa [x][place] []Moist []Dry Oral ETT []Present [x]Absent Neck: Trachea midline [x]Yes []No Thyromegaly []Yes [x]No Crepitus []Present [x]Absent Jvd []Present [x]Absent Lungs: []Clear [x]Crackles [x]Wheezes []Rhonchi Respiratory effort []Labored [x]Non-Labored Heart: Rate [x]Regular []Irregular []Tachycardia []Bradycardia Rhythm []Regular [x]Irregular Murmur []Present [x]Absent Peripheral Edema []Present [x]Absent Abdomen: [x]Soft Bowel Sounds [x]Present []Absent [x]Tender []Non-Tender []Distended []Non-distended Hernia []Present [x]Absent Organomegaly []Present [x]Absent []Scar Extremities: Cyanosis []Present [x]Absent STEELE ([x]RUE [x]RLE [x]LUE [x]LLE) Neurologic: SHUNGNAK []Yes []No Corneal reflexes [x]Present []Absent Plantar reflexes []Up []Down []Absent Withdraws to tactile [x]Yes []No Follows Commands []Yes [x]No []Unresponsive to verbal []Cranial nerves grossly intact []Sensation grossly intact Psych: Alert [x]yes []no Oriented []x0 []x1 []x2 []x3 Affect []Normal []Flat []Agitated []Anxious []Calm []Sedated [x]NAD Select Labs within last 72 hours BMP: Recent Labs 10/03/19 1136 10/04/19 0446 10/05/19 0459 10/05/19 1103 10/05/19 1713 10/05/19 2304 NA 133* < > 132* < > 137 137 134* 136 K 3.0* < > 3.1* < > 2.9* 3.9 3.7 3.1* CL 107 < > 109* < > 106 105 105 106 CO2 18* < > 21* < > 22 25 24 24 BUN 15 < > 13 < > 6* 4* 4* 3* CREATININE 1.39* < > 0.90 < > 0.44* 0.38* 0.38* 0.36* CALCIUM 6.7* < > 7.8* < > 7.6* 7.7* 7.5* 7.4* MG 2.2 -- 2.0 -- 1.6 -- -- -- PHOS 4.2 -- 3.0 -- 2.2* -- -- -- < > = values in this interval not displayed. LFTS: Recent Labs 10/03/19 11310/04/1944510/05/19 0459 AST 49* 47* 49* ALT 31 33 29 PROT 4.5* 4.3* 5.0* LABALBU 1.9* 1.7* 2.7* BILITOT 0.2 0.2 0.5 ALKPHOS 163* 148* 128* Glucose: Recent Labs 10/03/19234610/04/1944510/04/19113310/04/19 23210/05/19 0459 10/05/19 1103 10/05/19 17110/05/19 2304 GLUCOSE 90 87 74 96 97 116* 113* 111* CBC: Recent Labs 10/03/19234610/04/19232110/05/19 1103 10/05/19 17110/05/19 2304 WBC 13.9* -- 10.6 -- -- -- -- HGB 7.4* < > 6.7* < > 11.6* 10.6* 10.3* HCT 23.2* < > 20.6* < > 35.3 32.4* 31.7* PLT 405 -- 332 -- -- -- -- MCV 81.1 -- 81.0 -- -- -- -- RDW 17.9* -- 17.7* -- -- -- -- < > = values in this interval not displayed. ABGs: Recent Labs 10/05/19 1112 10/05/19 1526 10/06/19 0320 PHART 7.264* 7.385 7.526* [id number] 59.5* 44.6 33.0* PO2ART 233.1* 95.1 119.3* GCA9CPR 26.3* 26.1* 26.7* [id number] 98.8 97.3 98.5 FIO2A 100% 55%- 0.55 Lactic Acid: Recent Labs 10/03/19 1012 LACTA 1.0 INR: Recent Labs 10/03/19 1136 10/04/19 0446 10/05/19 0459 INR 1.2* 1.2* 1.3* pro-BNP: No results for input(s): NTPROBNP in the last 72 hours. Cardiac Injury Profile: No results for input(s): CKTOTAL, CKMB, TROPONINI in the last 72 hours. Labs in Last 3 months: Lab Results Component Value Date INR 1.3 (H) 10/05/2019 Imaging: CT Abd/Pel 10/02 - IMPRESSION: 1. No pneumoperitoneum to suggest hollow viscus perforation. Mild fat stranding at the splenic flexure, which may represent mild colitis. Mild perigastric fat stranding; correlate for possible gastritis. 2. Mildly dilated small bowel. Findings could be related to ileus or obstruction. No transition point is seen. 3. Wedge-shaped area of hypoenhancement in both kidneys, which may be related to polyp right is four bilateral renal infarcts. 4. Small bilateral pleural effusions. Bibasilar atelectasis. 5. Mildly distended gallbladder, which could be due to fasting but if there is concern for cholecystitis, ultrasound would be recommended. 6. Hepatic steatosis. US Abd 10/02- IMPRESSION: Distended gallbladder with sludge and mild gallbladder wall thickening with pericholecystic fluid which may be secondary to fasting state and liver disease. Negative Lieberman sign is reported. Acute cholecystitis is less likely. HIDA scan may be a helpful physiologic test. Enlarged fatty liver. No ascites. Small right pleural effusion KUB 10/02 - CONCLUSIONS: 1. Small bowel ileus. 2. Nasogastric tube in the vicinity of the stomach. 3. Pulmonary interstitial edema. CXR 10/03 - IMPRESSION: 1. Prominent interstitial markings which may represent pulmonary vascular congestion versus infectious etiology. Correlate clinically. 2. Interval retraction of the NG tube seen overlying the mid esophagus. EGD 10/04: 10cm long linear ulcerative area in body of stomach with oozing and signs 1-2 visible vessels that were clipped (4) and injected with epinepherine Cultures: BCx 10/02 - NG2D RCx 10/02 - no growth RVP, UAgs - negative UCx 8/12 - normal carole Assessment and Plan: Principal Problem: GI bleed Active Problems: Sepsis (HCC) Acute respiratory failure with hypoxia (HCC) COPD (chronic obstructive pulmonary disease) (HCC) Tobacco abuse Chronic alcohol use Acute midline thoracic back pain Elevated serum creatinine Shock (HCC) Resolved Problems: * No resolved hospital problems. * Shock, septic vs hypovolemic (resolved) - Patient meets SIRS criteria, on presentation to OSH met criteria for severe sepsis (lactic acidosis). Procal 17 on presentation, 1.8 on recheck. - Patient currently afebrile, leukocytosis improving 25>14>10.6 - Hypotensive in the setting of GI bleed, melanotic stools - BCx 10/02 - NG2D - UA showing LE and WBC - UCx 10/02 - normal - Transition to Unasyn from Vanc/Zosyn for 5 day total abx - cultures diop negative - CT abdomen/pel showing - Small bilateral pleural effusions. Bibasilar atelectasis, distended gallbladder - US showing sludge + mild GB wall thickening - fasting vs AC (less likely based on presentation) Acute hypoxic respiratory failure - In the setting of COPD, patient not on home O2 or any home meds - Anemia from GI bleed likely contributory - CTA chest negative for any acute PE at OSH - Infectious workup neg so far - Sputum culture pending - Monitor patient fluid status closely; no known history of CHF however unknown baseline EF and receiving aggressive IVF resuscitation - Net positive +9 L - CXR this AM showing unchanged opacities - edema vs atypical infection - Maintain vent, ABG ph 7.52/33/119/26 - Rate 18, FiO2 55% - decrease rate to 12 - Fentanyl PRN for pain and Versed PRN for agitation - Continue precedex drip - Daily ABG and CXR GI bleed (resolved) - Patient with up to 10 episodes of melanotic diarrhea daily at home prior to presentation, associated with intermittent sharp bilateral LQ abdominal pain - FOBT postive at OSH, Hb 6.8 on presentation - Hgb 10.3 this AM, s/p 4 units total - follow daily CBC - GI consulted and following, appreciate recommendations - s/p EGD - 10cm long linear ulcerative area in body of stomach with oozing and signs 1-2 visible vessels that were clipped (4) and injected with epinepherine - Continue protonix gtt - Keep NPO - HIDA scan to evaluate GB findings Ileus noted on KUB - Abdomen previously distended and diffusely tender to palpation on exam - 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 - Had 1 BM yesterday - On bowel regimen - add Lactulose 30 qid - GI signed off - KUB this AM showing worsening ileus - Will get CT Abd/pel with oral contrast to evaluate for obstruction - NG placed to wall suction, KUB to confirm placement Back pain, acute on chronic - Patient with stated history of chronic back fractures, patient takes tylenol and advil at home - CTA chest at outside hospital with no acute osseous abnormality - Lidocaine patch to affected area - Dilaudid 0.5 mg q4h PRN severe pain (started for low CrCl) COPD - Not O2 requiring at home, only on PRN albuterol - Duoneb scheduled q4h, accuneb PRN SOB - Will avoid steroid therapy in the setting of GI bleed Chronic alcohol use - Patient endorses drinking 5 beers daily - CIWA ordered - Now on precedex - Daily supplementation with thiamine and folate Tobacco abuse - 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 Labs, imaging studies and electronic medical record have been reviewed by me. This note documented and discussed by the [x]powerhouse operator []JAMAL reflects my history, exam and medical decision making. I have reviewed andagree with the care plan. Changes were made in the orders as necessary. My history, exam, assessment and plan are as follows. Critical care time spent excluding separately billable procedures is 31 minutes. Acute resp failure, intubated 10/04 Acute blood loss anemia, GI bleed s/p EGD stomach vessel clipped Shock, hypotension sepsis and hemorrhagic Ileus pAfib Precedex drip for agitation, prn versed/fentanyl On protonix drip NG placement, CT abd/pelvis with oral contrast Start lactulose, cont daily supp Treat as aspiration, abx x 5 days total PHYSICAL EXAM: General Appearance: []WDWN []Obese []Cachectic []Thin []ill Skin: Temperature [x]Warm []Cool Rash []Yes []No Tattoo(s) []Yes []No HEENT: Pupils round and react [x]Yes []No Sclera []Icteric []Non-Icteric Conjunctiva []Injected []Non-Injected Pinnae []Normal []Other Dentitian [][place] Teeth []Dentures []edentulous Oral Mucosa [x][place] []Moist []Dry Oral ETT [x]Present []Absent Neck: Trachea midline [x]Yes []No Thyromegaly []Yes []No Crepitus []Present []Absent Jvd []Present []Absent Lungs: coarse symmetric breath sounds []Clear []Crackles []Wheezes []Rhonchi Respiratory effort []Labored [x]Non-Labored Heart: Rate [x]Regular []Irregular []Tachycardia []Bradycardia Rhythm [x]Regular []Irregular Murmur []Present []Absent Peripheral Edema []Present [x]Absent Abdomen: [x]Soft Bowel Sounds [x]Present []Absent []Tender []Non-Tender []Distended []Non-distended Hernia []Present []Absent Organomegaly []Present []Absent []unable to assess 2/2 body habitus []Scar Extremities: Cyanosis []Present [x]Absent STEELE ([x]RUE [x]RLE [x]LUE [x]LLE) Neurologic: SHUNGNAK []Yes [x]No Corneal reflexes []Present []Absent Plantar reflexes []Up []Down []Absent Withdraws to tactile []Yes []No Follows Commands []Yes []No []Unresponsive to verbal []Cranial nerves grossly intact []Sensation grossly intact Psych: Alert [x]yes []no Oriented []x0 []x1 []x2 []x3 Affect []Normal []Flat []Agitated []Anxious [x]Calm []Sedated []NAD * Reba Nath, [facility] - 10/05/2019 12:29 PM EDT Pharmacy Managed Vancomycin Dosing Service Progress Note Date: 10/05/19 Room:[place] [id number] Patient Name: Dory Basurto Allergies: Patient has no known allergies. Age: 63 y.o. Sex: female Ht: Height: 5' 7 (170.2 cm) TBW: Weight: 117 lb 1.6 oz (53.1 kg) BMI: Body mass index is 18.34 kg/m . DW: 53.1 kg Calculated CrCl: > 100 ml/min Lab Results Component Value Date CREATININE 0.38 (L) 10/05/2019 CREATININE 0.44 (L) 10/05/2019 CREATININE 0.46 (L) 10/04/2019 BUN 4 (L) 10/05/2019 BUN 6 (L) 10/05/2019 BUN 7 10/04/2019 WBC 10.6 10/04/2019 WBC 13.9 (H) 10/03/2019 WBC 25.4 (H) 10/03/2019 Infectious Diagnosis: sepsis (goal trough = 15-20 mcg/mL) Antimicrobials: Recent Abx Admin vancomycin (VANCOCIN) 1000 mg in dextrose 5% 200 mL IVPB (g) 1 g New Bag 10/05/19 1147 piperacillin-tazobactam (ZOSYN) 4.5 g in dextrose 100 mL IVPB extended infusion (premix) (g) 4.5 g New Bag 10/05/19 0824 4.5 g New Bag 0249 4.5 g New Bag 10/04/19 1706 Assessment/Plan: Patient's renal function has significantly improved since admission. Vancomycin trough subtherapeutic at 6.1 mcg/mL. Will increase Vancomycin to 1 gram Q 12 hours (18.8 mg/kg). Will assess trough prior to 4th dose of this new order and adjust as appropriate. Will follow renal function closely. Please page/call with questions. Date: 10/05/19 Time: 12:29 PM Name: Reba Nath PharmD Pager: [phone] [phone] Electronically signed by Reba Nath [facility] at 10/05/2019 12:35 PM EDT * Tierney White MD - 10/05/2019 6:32 AM EDT ICU Progress Note Dory Basurto : 1955(63 y.o.) Date: October 05, 2019 Team: ICU Attending: Dr. Edouard Kenney Chief Complaint: SOB Subjective: BP low overnight. Given Albumin 50g, bicarb drip increased from 75 ml/hr to 100 ml/hr. Hgb 6.7 and 1 u pRBC given. No dilaudid given overnight. Did get 2mg ativan x2. Currently she appears agitated, lethargic. Moans during examination. Does not respond appropriately. BP stable and sating well on 3 L O2 via NC. Remains NPO for EGD today. NG present. CXR appears fluid overloaded so will hold fluids for now. NG tubing with blood. Got 0.5mg Dilaudid this AM. Concern from GI that patient not protecting airway, she was suctioned and had thick secretions. Patient family consented and intubated for airway protection. GI aware and planning for EGD. Review of Systems Unable to perform ROS: Mental status change Scheduled Meds: potassium chloride 10 mEq Intravenous Q1H piperacillin-tazobactam 4.5 g Intravenous Q6H bisacodyl 10 mg Rectal Daily lidocaine 1 patch Transdermal Daily vancomycin 1 g Intravenous Q24H sodium chloride flush 10 mL Intravenous 2 times per day thiamine 100 mg Intravenous Daily folic acid IVPB 1 mg Intravenous Daily ipratropium-albuterol 1 ampule Inhalation Q4H WA Continuous Infusions: IV infusion builder 100 mL/hr at 10/05/19 0234 pantoprozole (PROTONIX) infusion 8 mg/hr (10/04/19 2100) PRN meds used in last 24hrs: Ativan 2 mg x2 overnight Objective: VITALS: BP 133/69 Pulse 108 Temp 97.9 F (36.6 C) (Temporal) Resp 22 Ht 5' 7 (1.702 m) Wt117 lb 1.6 oz (53.1 kg) SpO2 95% BMI 18.34 kg/m CURRENT PULSE OXIMETRY: SpO2: 95 % I/O: 10/03 0701 - 10/04 0700 In: 4941.7 [I.V.:4102] Out: 850 [Urine:850] Ventilator Settings: Oxygen Delivery - O2 Flow Rate (L/min): 3 L/min Invasive Lines and Dates: None Intubation Date: 10/04 - General Appearance: []WDWN []Obese [x]Cachectic [x]Thin []ill Skin: Temperature [x]Warm []Cool Rash []Yes [x]No Tattoo(s) []Yes [x]No HEENT: Pupils round and react [x]Yes []No Sclera []Icteric [x]Non-Icteric Conjunctiva []Injected [x]Non-Injected Pinnae [x]Normal []Other Dentitian [][place] Teeth [x]Dentures Oral Mucosa [x][place] []Moist []Dry Oral ETT []Present [x]Absent NG tube present Neck: Trachea midline [x]Yes []No Thyromegaly []Yes [x]No Crepitus []Present [x]Absent Jvd []Present [x]Absent Lungs: []Clear [x]Crackles [x]Wheezes []Rhonchi Crackles noted throughout on 3L O2 via NC Respiratory effort []Labored [x]Non-Labored Heart: Rate [x]Regular []Irregular []Tachycardia []Bradycardia Rhythm [x]Regular []Irregular Murmur []Present [x]Absent Peripheral Edema []Present [x]Absent Abdomen: [x]Soft Bowel Sounds [x]Present []Absent [x]Tender []Non-Tender []Distended []Non-distended Hernia []Present [x]Absent Organomegaly []Present [x]Absent []Scar Extremities: Cyanosis []Present [x]Absent STEELE ([x]RUE [x]RLE [x]LUE [x]LLE) Neurologic: SHUNGNAK []Yes [x]No Corneal reflexes [x]Present []Absent Plantar reflexes []Up []Down []Absent Withdraws to tactile [x]Yes []No Follows Commands [x]Yes []No []Unresponsive to verbal []Cranial nerves grossly intact []Sensation grossly intact Psych: Alert [x]yes []no Oriented []x0 []x1 []x2 [x]x3 Affect []Normal []Flat []Agitated []Anxious []Calm []Sedated [x]NAD Select Labs within last 72 hours BMP: Recent Labs 10/03/19 0321 10/03/19 1136 10/04/19 04410/04/19 11310/04/19 2322 NA 132* 133* < > 132* 134* 135 K 3.0* 3.0* < > 3.1* 3.3* 2.9* CL 105 107 < > 109* 109* 108* CO2 16* 18* < > 21* 22 25 BUN 15 15 < > 13 10 7 CREATININE 1.41* 1.39* < > 0.90 0.73 0.46* CALCIUM 6.8* 6.7* < > 7.8* 7.5* 7.2* MG 1.6 2.2 -- 2.0 -- -- PHOS -- 4.2 -- 3.0 -- -- < > = values in this interval not displayed. LFTS: Recent Labs 10/03/19 1012 10/03/19 11310/04/19 044 AST 63* 49* 47* ALT 31 31 33 PROT 4.6* 4.5* 4.3* LABALBU 1.9* 1.9* 1.7* BILITOT 0.2 0.2 0.2 ALKPHOS 181* 163* 148* Glucose: Recent Labs 10/03/19 03210/03/19 1136 10/03/19 1708 10/03/19 2347 10/04/19 0446 10/04/19 11310/04/19 2322 GLUCOSE 134* 89 100 90 87 74 96 CBC: Recent Labs 10/03/19 03210/03/19 2347 10/04/19 0446 10/04/19 11310/04/19 2322 WBC 25.4* -- 13.9* -- -- 10.6 HGB 6.1* < > 7.4* 7.9* 8.3* 6.7* HCT 20.2* < > 23.2* 24.8* 26.2* 20.6* PLT 545* -- 405 -- -- 332 MCV 79.5 -- 81.1 -- -- 81.0 RDW 18.5* -- 17.9* -- -- 17.7* < > = values in this interval not displayed. ABGs: No results for input(s): PHART, XDO5UGN, PO2ART, WZB3HHM, S3SMIDMB, FIO2A in the last 72 hours. Lactic Acid: Recent Labs 10/03/19 1012 LACTA 1.0 INR: Recent Labs 10/03/19 1136 10/04/19 0446 10/05/19 0459 INR 1.2* 1.2* 1.3* pro-BNP: No results for input(s): NTPROBNP in the last 72 hours. Cardiac Injury Profile: No results for input(s): CKTOTAL, CKMB, TROPONINI in the last 72 hours. Labs in Last 3 months: Lab Results Component Value Date INR 1.3 (H) 10/05/2019 Imaging: CT Abd/Pel 10/02 - IMPRESSION: 1. No pneumoperitoneum to suggest hollow viscus perforation. Mild fat stranding at the splenic flexure, which may represent mild colitis. Mild perigastric fat stranding; correlate for possible gastritis. 2. Mildly dilated small bowel. Findings could be related to ileus or obstruction. No transition point is seen. 3. Wedge-shaped area of hypoenhancement in both kidneys, which may be related to polyp right is four bilateral renal infarcts. 4. Small bilateral pleural effusions. Bibasilar atelectasis. 5. Mildly distended gallbladder, which could be due to fasting but if there is concern for cholecystitis, ultrasound would be recommended. 6. Hepatic steatosis. US Abd 10/02- IMPRESSION: Distended gallbladder with sludge and mild gallbladder wall thickening with pericholecystic fluid which may be secondary to fasting state and liver disease. Negative Lieberman sign is reported. Acute cholecystitis is less likely. HIDA scan may be a helpful physiologic test. Enlarged fatty liver. No ascites. Small right pleural effusion KUB 10/02 - CONCLUSIONS: 1. Small bowel ileus. 2. Nasogastric tube in the vicinity of the stomach. 3. Pulmonary interstitial edema. CXR 8/13 - IMPRESSION: 1. Prominent interstitial markings which may represent pulmonary vascular congestion versus infectious etiology. Correlate clinically. 2. Interval retraction of the NG tube seen overlying the mid esophagus. EGD 10/04: 10cm long linear ulcerative area in body of stomach with oozing and signs 1-2 visible vessels that were clipped (4) and injected with epinepherine Cultures: BCx 10/02 - NG2D RCx 10/02 - not sent RVP, UAgs - negative UCx 10/02 - normal carole Assessment and Plan: Principal Problem: GI bleed Active Problems: Sepsis (HCC) Acute respiratory failure with hypoxia (HCC) COPD (chronic obstructive pulmonary disease) (HCC) Tobacco abuse Chronic alcohol use Acute midline thoracic back pain Elevated serum creatinine Shock (HCC) Resolved Problems: * No resolved hospital problems. * Shock, septic vs hypovolemic - Patient meets SIRS criteria, on presentation to OSH met criteria for severe sepsis (lactic acidosis) - Patient currently afebrile, leukocytosis improving 25>14>10.6 - Hypotensive in the setting of GI bleed, melanotic stools - BCx 10/02 - NG1D - UA showing LE and WBC - UCx 10/02 - pending - Continue Vanc/Zosyn for broad spectrum - LA normal on presentation - Procal 17.5 - CT abdomen/pel showing - Small bilateral pleural effusions. Bibasilar atelectasis, distended gallbladder - US showing sludge + mild GB wall thickening - fasting vs AC (less likely based on presentation) Acute hypoxic respiratory failure - In the setting of COPD, patient on no home O2 however requiring 2L NC to maintain saturations - Anemia from GI bleed likely contributory - CTA chest negative for any acute PE at [facility] - Obtain sputum cx as above - Infectious workup neg so far - Monitor patient fluid status closely; no known history of CHF however unknown baseline EF and receiving aggressive IVF resuscitation - Net positive +7.7 L - CXR this AM appears fluid overloaded, holding fluids for now - Now intubated and on vent - Fentanyl PRN and Versed PRN for sedation GI bleed - Patient with up to 10 episodes of melanotic diarrhea daily at home prior to presentation, associated with intermittent sharp bilateral LQ abdominal pain - FOBT postive at OSH, Hb 6.8 on presentation - Hgb 10.1 this AM, s/p 1 unit on admission, 1 unit overnight (4 units total) - GI PCR panel and C. Diff toxin pending (in the setting of leukocytosis) - Trend H&H q6h, transfuse for Hb < 7 - Continue protonix gtt - GI consulted and following, appreciate recommendations - Keep NPO pending possible EGD - Haptoglobin/LDH normal - HIDA scan to evaluate GB findings - holding for AMS - EGD today NAGMA (resolved) - Patient CO2 22, anion gap 9 - In the setting of diarrhea - pH from iCa this AM 7.36 - Monitor BMP q12h - Fluids d/c'd this AM Ileus noted on KUB - Abdomen previously distended and diffusely tender to palpation on exam - No BM or passing gas. Patient with minimal PO over last 4-5 days - Patient with known history of chronic alcohol use (3-4 bees per day) - CT abdomen and pelvis as above - Lipase negative - NG placed - with better suction, tubing with bloody fluid present - GI on board Back pain, acute on chronic - Patient with stated history of chronic back fractures, patient takes tylenol and advil at home - CTA chest at outside hospital with no acute osseous abnormality - Lidocaine patch to affected area - Dilaudid 0.5 mg q4h PRN severe pain (in the setting of low CrCl) COPD - Not O2 requiring at home, only on PRN albuterol - Duoneb scheduled q4h, accuneb PRN SOB - Will avoid steroid therapy in the setting of active GI bleed Chronic alcohol use - Patient endorses drinking 5 beers daily - Will initiate CIWA - Daily supplementation with thiamine and folate Tobacco abuse - 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 Labs, imaging studies and electronic medical record have been reviewed by me. This note documented and discussed by the [x]powerhouse operator []JAMAL reflects my history, exam and medical decision making. I have reviewed andagree with the care plan. Changes were made in the orders as necessary. My history, exam, assessment and plan are as follows. Critical care time spent excluding separately billable procedures is 32 minutes. Acute resp failure requiring intubation Acute blood loss anemia, GI bleed s/p EGD stomach vessel clipped Shock, hypotension sepsis and hemorrhagic Ileus Check resp culture, maintain vent Transfuse prn Recheck KUB in am PHYSICAL EXAM: General Appearance: []WDWN []Obese []Cachectic []Thin []ill Skin: Temperature []Warm []Cool Rash []Yes []No Tattoo(s) []Yes []No HEENT: Pupils round and react [x]Yes []No Sclera []Icteric []Non-Icteric Conjunctiva []Injected []Non-Injected Pinnae []Normal []Other Dentitian [][place] Teeth []Dentures []edentulous Oral Mucosa [x][place] []Moist []Dry Oral ETT [x]Present []Absent Neck: Trachea midline [x]Yes []No Thyromegaly []Yes []No Crepitus []Present []Absent Jvd []Present []Absent Lungs: coarse symmetric breath sounds []Clear []Crackles []Wheezes [x]Rhonchi Respiratory effort []Labored []Non-Labored Heart: Rate [x]Regular []Irregular []Tachycardia []Bradycardia Rhythm [x]Regular []Irregular Murmur []Present []Absent Peripheral Edema []Present []Absent Abdomen: []Soft Bowel Sounds []Present []Absent []Tender []Non-Tender []Distended []Non-distended Hernia []Present []Absent Organomegaly []Present []Absent []unable to assess 2/2 body habitus []Scar Extremities: Cyanosis []Present []Absent STEELE ([]RUE []RLE []LUE []LLE) Neurologic: SHUNGNAK []Yes []No Corneal reflexes []Present []Absent Plantar reflexes []Up []Down []Absent Withdraws to tactile []Yes []No Follows Commands []Yes [x]No []Unresponsive to verbal []Cranial nerves grossly intact []Sensation grossly intact Psych: Alert []yes [x]no Oriented []x0 []x1 []x2 []x3 Affect []Normal []Flat []Agitated []Anxious []Calm []Sedated []NAD * Yoana Mcfarlane RD, LD - 10/04/2019 1:01 PM EDT Comprehensive Nutrition Assessment Type and Reason for Visit: Initial Nutrition Recommendations/Plan: 1. Pt. NPO and should not remain without nutrition >72 hours. 2. Continue to monitor bowel function to determine appropriate route of nutritional intervention. 3. Monitor for withdrawal due to ETOH use. 4. Recommend to advance po diet as deemed feasible based upon bowel function (planned EGD, distended GB with sludge; intermittent diarrhea) 5. If bowel rest needed, suggest PN. 6. If with improvement of bowel function and po diet contraindicated and EN deemed necessary, suggest: Semi-Elemental/Vital 1.5@ goal rate 40ml/hour = 1440cal/64gPro/733ml free water = 27cal/1.2gPro/kg CBW (53.1kg) - monitor for re-feeding syndrome. 7. Monitor and follow weekly. Nutrition Assessment: At time of visit, pt. laying in bed with dobhoff; Per chart,past medical history of COPD and tobacco abuse who presents with 3-4 weeks of generalized weakness, malaise, melena, and diarrhea. She endorses having up to 10 episodes of melanotic diarrhea daily during this time associated with some fecal incontinence. She states she did not seek medical attention because the melena was intermittent. She denies constipation, hematochezia, rectal pain/itching. She has had intermittent sharp bilateral lower quadrant abdominal pain during this time and is unable to identify any triggers. She has had decreased appetite and PO intake but is unsure if she has lost any weight. She h as had nausea and some dry heaving but no emesis or hematemesis. She endorses intermittent dyspepsia which is new over the past few weeks but no dysphagia or odynophagia. Denies recent travel or change in diet. She states she's gradually declined over the past month and has had worsening generalized weakness and difficulty walking. She is a current ppd smoker and drinks 3-5 beers daily. Malnutrition Assessment: Malnutrition Status: Insufficient data Context: Acute Illness Findings of the 6 clinical characteristics of malnutrition: Energy Intake: Unable to assess Weight Loss: Unable to assess Body Fat Loss: Unable to assess Muscle Mass Loss: Unable to assess Fluid Accumulation: Unable to assess Macroeconomics Professor Strength: Not Performed Estimated Daily Nutrient Needs: Energy (kcal): 25 - 30cal/kg CBW (53.1kg) = 1328 - 1593cal/day; Weight Used for Energy Requirements: Current(53.1kg) Protein (g): 1.1 -1.3g/kg CBW = 58 -69g/day; Weight Used for Protein Requirements: Enigma Fluid (ml/day): per MD order; Weight Used for Fluid Requirements: Nutrition Related Findings: + bowel sounds; Noted: K 3.1, BUN 21 Current Nutrition Therapies: Diet NPO Effective Now Anthropometric Measures: Height: 5' 7 (170.2 cm) Current Body Weight: 117 lb 1.6 oz (53.1 kg) Enigma Body Weight: 135 lbs; % Enigma Body Weight 86.7 % BMI: 18.3 BMI Categories: Underweight (BMI less than 18.5) Nutrition Diagnosis: Inadequate oral intake related to altered GI function as evidenced by NPO or clear liquid status due to medical condition Nutrition Interventions: Food and/or Nutrient Delivery: Continue NPO Nutrition Education/Counseling: No recommendation at this time Coordination of Nutrition Care: Continued Inpatient Monitoring Goals: Pt. to receive nutrition within the next 48 hours. Nutrition Monitoring and Evaluation: Food/Nutrient Intake Outcomes: Diet Advancement/Tolerance Physical Signs/Symptoms Outcomes: Biochemical Data, Nutrition Focused Physical Findings, Skin, Weight, Diarrhea, GI Status, Nausea or Vomiting, Fluid Status or Edema, Hemodynamic Status Discharge Planning: Too soon to determine Contact: pager [phone] * Rowan Elias MD - 10/04/2019 10:54 AM EDT Department of Internal Medicine Gastroenterology Attending Progress Note SUBJECTIVE: 63 y.o. female with significant past medical history of COPD, tobacco abuse, ETOH abusewho presented with 3-4 weeks of generalized weakness, malaise, melena, and diarrhea. PT states for the past few months she has been having a few (2-3) loose black stools daily. Patient complaining of pain in her back today, states it is the reason she came in in the first place. She states she has been taking #4-6 tablets of OTC ibuprofen daily for her back pain. Is currently NPO and states she would like to eat something. She denies abdominal pain, nausea or vomiting. She has not had a BM since admission and is not passing any flatus today. She is currently on 2L NC oxygen, denies SOB. Not on oxygen at home. Received 1U PRBC Medications Current Facility-Administered Medications: piperacillin-tazobactam (ZOSYN) 4.5 g in dextrose 100 mLIVPB extended infusion (premix), 4.5 g, Intravenous, Q6H sodium bicarbonate 75 mEq in dextrose 5 % and 0.45 % NaCl 1,000 mL infusion, , Intravenous, Continuous bisacodyl (DULCOLAX) suppository 10 mg, 10 mg, Rectal, Daily acetaminophen (TYLENOL) tablet 650 mg, 650 mg, Oral, Q6H PRN OR acetaminophen (TYLENOL) suppository 650 mg, 650 mg, Rectal, Q6H PRN promethazine (PHENERGAN) tablet 12.5 mg, 12.5 mg, Oral, Q6H PRN OR ondansetron (ZOFRAN) injection 4 mg, 4 mg, Intravenous, Q6H PRN albuterol (ACCUNEB) nebulizer solution 1.25 mg, 1.25 mg, Nebulization, Q6H PRN lidocaine 4 % external patch 1 patch, 1 patch, Transdermal, Daily iopamidol (ISOVUE-370) 76 % injection 75 mL, 75 mL, Intravenous, ONCE PRN polyethylene glycol (GLYCOLAX) packet 17 g, 17 g, Oral, Daily PRN pantoprazole (PROTONIX) 80 mg in sodium chloride 0.9 % 100 mL infusion, 8 mg/hr, Intravenous, Continuous HYDROmorphone (DILAUDID) injection 0.5 mg, 0.5 mg, Intravenous, Q4H PRN vancomycin (VANCOCIN) 1000 mg in dextrose 5% 200 mL IVPB, 1 g, Intravenous, Q24H sodium chloride flush 0.9 % injection 10 mL, 10 mL, Intravenous, 2 times per day sodium chloride flush 0.9 % injection 10 mL, 10 mL, Intravenous, PRN LORazepam (ATIVAN) tablet 1 mg, 1 mg, Oral, Q1H PRN OR LORazepam (ATIVAN) injection 1 mg, 1 mg,Intravenous, Q1H PRN OR LORazepam (ATIVAN) tablet 2 mg, 2 mg, Oral, Q1H PRN OR LORazepam (ATIVAN) injection 2 mg, 2 mg, Intravenous, Q1H PRN OR LORazepam (ATIVAN) tablet 3 mg, 3 mg, Oral,Q1H PRN OR LORazepam (ATIVAN) injection 3 mg, 3 mg, Intravenous, Q1H PRN OR LORazepam (ATIVAN) tablet 4 mg, 4 mg, Oral, Q1H PRN OR LORazepam (ATIVAN) injection 4 mg, 4 mg, Intravenous, Q1H PRN thiamine (B-1) injection 100 mg, 100 mg, Intravenous, Daily folic acid 1 mg in dextrose 5 % 50 mL IVPB, 1 mg, Intravenous, Daily ipratropium-albuterol (DUONEB) nebulizer solution 1 ampule, 1 ampule, Inhalation, Q4H WA OBJECTIVE VITALS: BP (!) 87/52 Pulse 93 Temp 98.9 F (37.2 C) Resp 11 Ht 5' 7 (1.702 m) Wt 117 lb 1.6 oz (53.1 kg) SpO2 100% BMI 18.34 kg/m TEMPERATURE: Current - Temp: 98.9 F (37.2 C); Max - Temp Av.5 F (36.9 C) Min: 98 F (36.7 C) Max: 98.9 F (37.2 C) RESPIRATIONS RANGE: Resp Av.3 Min: 5 Max: 24 PULSE RANGE: Pulse Av.8 Min: 76 Max: 111 BLOOD PRESSURE RANGE: Systolic (24hrs), Av , Min:78 , Max:110 ; Diastolic (24hrs), Av, Min:39, Max:95 PULSE OXIMETRY RANGE: SpO2 Av.1 % Min: 85 % Max: 100 % 24HR INTAKE/OUTPUT: Intake/Output Summary (Last 24 hours) at 10/04/2019 1445 Last data filed at 10/04/2019 0813 Gross per 24 hour Intake 3748 ml Output 1070 ml Net 2678 ml GENERAL: Pale, ill in appearance but non-toxic. 3L [place] oxygen. HEENT: NCAT, PERRLA, EOMI, Scleral anicteric. Oropharhynx clear with no erythema or exudate. Neck supple, no cervical LAD or thyromegaly. CV: RRR, NL S1/S2, no murmurs. Distal pulses palpable and equal b/l. LUNGS: CTA b/l. Normal percussion and palpation. No W/R/R. ABD: hypoactive BS, soft, non-tender and mild distention. No hepatosplenomegaly. No mass felt. No rebound or guarding. EXT: No C/C/E. + muscle atrophy. Skin: No skin lesion or breakdown. Lymph: No cervical or supraclavicular LAD. Musculoskeletal: Strength 5/5 in all exts. No joint tenderness or effusions in LEs. Neurologic: A&O x 3, CN II-XII grossly intact. DTR +2 symmetric in patella. Normal cerebellar fxn. Non-focal. Data Recent blood work, radiologic study and endoscopic study were reviewed with the patient. CBC: Recent Labs 10/03/19 0321 10/03/19 2347 10/04/19 0446 10/04/19 1134 WBC 25.4* -- 13.9* -- -- RBC 2.54* -- 2.87* -- -- HGB 6.1* < > 7.4* 7.9* 8.3* HCT 20.2* < > 23.2* 24.8* 26.2* MCV 79.5 -- 81.1 -- -- MCH 23.9* -- 25.8* -- -- MCHC 30.0* -- 31.8* -- -- RDW 18.5* -- 17.9* -- -- PLT 545* -- 405 -- -- MPV 6.9* -- 7.0* -- -- < > = values in this interval not displayed. CMP: Recent Labs 10/03/19 1012 10/03/19 1136 10/03/19 2347 10/04/19 0446 10/04/19 1134 NA -- 133* < > 135 132* 134* K -- 3.0* < > 3.4* 3.1* 3.3* CL -- 107 < > 106 109* 109* CO2 -- 18* < > 27 21* 22 BUN -- 15 < > 12 13 10 CREATININE -- 1.39* < > 0.83 0.90 0.73 GLUCOSE -- 89 < > 90 87 74 CALCIUM -- 6.7* < > 6.9* 7.8* 7.5* PROT 4.6* 4.5* -- -- 4.3* -- LABALBU 1.9* 1.9* -- -- 1.7* -- BILITOT 0.2 0.2 -- -- 0.2 -- ALKPHOS 181* 163* -- -- 148* -- AST 63* 49* -- -- 47* -- ALT 31 31 -- -- 33 -- < > = values in this interval not displayed. LIPASE: Recent Labs 10/03/19 1012 10/03/19 1136 LIPASE 28 33 PT/INR: Recent Labs 10/03/19 1012 10/03/19 1136 10/04/19 0446 INR 1.2* 1.2* 1.2* CXR 10/04/19 IMPRESSION: 1. Prominent interstitial markings which may represent pulmonary vascular congestion versus infectious etiology. Correlate clinically. 2. Interval retraction of the NG tube seen overlying the mid esophagus. These findings were discussed with RN: Abelino at 7:41am on 10/04/2019 Report Dictated on --- Final --- Dictated: 10/04/2019 7:35 am Dictating Physician: DO ROGERS RACHEL Signed Date and Time: 10/04/2019 7:42 am Signed by: DO ROGERS RACHEL Transcribed Date and Time: 10/04/2019 7:35 RUQ US 10/04/19 IMPRESSION: Distended gallbladder with sludge and mild gallbladder wall thickening with pericholecystic fluid which may be secondary to fasting state and liver disease. Negative Lieberman sign is reported. Acute cholecystitis is less likely. HIDA scan may be a helpful physiologic test. Enlarged fatty liver. No ascites. Small right pleural effusion Report Dictated on --- Final --- Dictated: 10/04/2019 5:06 am Dictating Physician: PARKER PATEL DO, I Signed Date and Time: 10/04/2019 5:12 am Signed by: PARKER PATEL DO, I Transcribed Date and Time: 10/04/2019 5:06 XR ABD 10/04/19 CLINICAL INDICATION: Evaluate ileus COMPARISON: 10/03/2019 Supine images of the abdomen were obtained. There is diffuse small bowel and colonic gas with mild distention, increased compared to the prior exam. Bladder is partially distended with contrast opacified urine from CT exam done yesterday. No definite filling defects are noted. There are no acute interval changes in the osseous structures. IMPRESSION: Diffuse ileus which appears slightly greater than the prior exam Report Dictated on Workstation: [id number] --- Final --- Dictated: 10/04/2019 12:11 pm Dictating Physician: MD CHANDLER DIANE Signed Date and Time: 10/04/2019 12:15 pm Signed by: MD CHANDLER DIANE Transcribed Date and Time: 10/04/2019 12:11 ASSESSMENT AND PLAN Septic vs. Hemorrhagic shock Melena Acute blood loss anemia Abdominal pain - improved Back pain Daily ETOH use - recommend NG tube for decompression given ileus vs. SBO on CT scan (Dobhoff was placed yesterday with minimal output) - h/h stable following transfusion, no further melenic BMs overnight - KUB ordered showing diffuse ileus, slightly greater than prior exam - will re-evaluate patient once NG tube placed, evaluate output and determine if EGD to be done today given presentation of upper GI bleeding and drop in h/h - agree with HIDA to evaluate gallbladder ADDENDUM: - NG tube placed with no output. Awaiting XR to assess positioning. Dr. Elias at bedside and considering EGD however given pts worsening ileus with hypotension (MAPs ~60-65) high risk for sedation. Updated ICU team, EGD cancelled for today. - Consider EGD tomorrow if continued drop in h/h or furtherovert signs of GI bleeding. Attending Supervising Physician s Attestation Statement I have personally performed and participated in all the above services (including HPI and PE). I have reviewed the case with Advance Practice Provider (JAMAL)/medical student/district medical examiner, and agreed with the JAMAL/medical student/district medical examiner's assessment and plan as above. The above documentation has been reviewed and amended with the changes I have personally made to reflect the findings of my evaluation. 63 year old female with admission for melena and transferred to ICU with hypotension and concerns for sepsis. Patient now with ileus and place NG tube. Planned to do EGD Today, but cancelled due to hypotension and concerns of ileus. Patient will be watched overnight and plan to do EGD tomorrow if she has stabilized a little further. * Tierney White MD - 10/04/2019 9:47 AM EDT ICU Progress Note Dory Basurto : 1955(63 y.o.) Date: October 04, 2019 Team: ICU Attending: Dr. Edouard Kenney Chief Complaint: SOB Subjective: Stable overnight, no concerns from nursing. Got dilaudid x2 overnight. Patient doing well this AM, complains of back pain. She is on NC, still complaining of mild SOB. Denies CP. Dobhoff present. Denies any further BM, nausea, emesis. Remains NPO, asking to eat. Review of Systems Constitutional: Negative for chills, diaphoresis and fever. HENT: Negative for congestion, nosebleeds, rhinorrhea and sore throat. Respiratory: Negative for cough, shortness of breath and wheezing. Cardiovascular: Negative for chest pain, palpitations and leg swelling. Gastrointestinal: Positive for abdominal pain (tenderness to palpation), blood in stool (melena) and diarrhea (intermittent). Negative for abdominal distention, constipation, nausea and vomiting. Genitourinary: Negative for dysuria, frequency and hematuria. Musculoskeletal: Positive for back pain (Upper mid back pain, sharp). Skin: Negative for rash and wound. Neurological: Negative for dizziness, light-headedness and headaches. Psychiatric/Behavioral: Negative for agitation and dysphoric mood. Scheduled Meds: piperacillin-tazobactam 4.5 g Intravenous Q6H lidocaine 1 patch Transdermal Daily vancomycin 1 g Intravenous Q24H sodium chloride flush 10 mL Intravenous 2 times per day thiamine 100 mg Intravenous Daily folic acid IVPB 1 mg Intravenous Daily ipratropium-albuterol 1 ampule Inhalation Q4H WA Continuous Infusions: pantoprozole (PROTONIX) infusion 8 mg/hr (10/03/19 2348) IV infusion builder 75 mL/hr at 10/04/19 0530 PRN meds used in last 24hrs: Dilaudid 0.5 mg x2 overnight Objective: VITALS: BP 94/60 Pulse 95 Temp 98.9 F (37.2 C) Resp 23 Ht 5' 7 (1.702 m) Wt 117 lb 1.6 oz (53.1 kg) SpO2 100% BMI 18.34 kg/m CURRENT PULSE OXIMETRY: SpO2: 100 % I/O: 10/02 0701 - 10/03 0700 In: 4098 [I.V.:3748] Out: 820 [Urine:820] Ventilator Settings: Oxygen Delivery - O2 Flow Rate (L/min): 3 L/min Invasive Lines and Dates: None Intubation Date: N/A General Appearance: []WDWN []Obese [x]Cachectic [x]Thin []ill Skin: Temperature [x]Warm []Cool Rash []Yes [x]No Tattoo(s) []Yes [x]No HEENT: Pupils round and react [x]Yes []No Sclera []Icteric [x]Non-Icteric Conjunctiva []Injected [x]Non-Injected Pinnae [x]Normal []Other Dentitian [][place] Teeth [x]Dentures Oral Mucosa [x][place] []Moist []Dry Oral ETT []Present [x]Absent NG tube present Neck: Trachea midline [x]Yes []No Thyromegaly []Yes [x]No Crepitus []Present [x]Absent Jvd []Present [x]Absent Lungs: []Clear []Crackles [x]Wheezes []Rhonchi Mild wheezing on 3L O2 via NC Respiratory effort []Labored [x]Non-Labored Heart: Rate [x]Regular []Irregular []Tachycardia []Bradycardia Rhythm [x]Regular []Irregular Murmur []Present [x]Absent Peripheral Edema []Present [x]Absent Abdomen: [x]Soft Bowel Sounds [x]Present []Absent [x]Tender []Non-Tender []Distended []Non-distended Hernia []Present [x]Absent Organomegaly []Present [x]Absent []Scar Extremities: Cyanosis []Present [x]Absent STEELE ([x]RUE [x]RLE [x]LUE [x]LLE) Neurologic: SHUNGNAK []Yes [x]No Corneal reflexes [x]Present []Absent Plantar reflexes []Up []Down []Absent Withdraws to tactile [x]Yes []No Follows Commands [x]Yes []No []Unresponsive to verbal []Cranial nerves grossly intact []Sensation grossly intact Psych: Alert [x]yes []no Oriented []x0 []x1 []x2 [x]x3 Affect []Normal []Flat []Agitated []Anxious []Calm []Sedated [x]NAD [facility] Labs within last 72 hours BMP: Recent Labs 10/03/19 0321 10/03/19 1136 10/03/19 1708 10/03/19 2347 10/04/19 0446 NA 132* 133* 131* 135 132* K 3.0* 3.0* 3.5 3.4* 3.1* CL 105 107 107 106 109* CO2 16* 18* 18* 27 21* BUN 15 15 14 12 13 CREATININE 1.41* 1.39* 1.22 0.83 0.90 CALCIUM 6.8* 6.7* 6.7* 6.9* 7.8* MG 1.6 2.2 -- -- 2.0 PHOS -- 4.2 -- -- 3.0 LFTS: Recent Labs 10/03/19 1012 10/03/19 1136 10/04/19 0446 AST 63* 49* 47* ALT 31 31 33 PROT 4.6* 4.5* 4.3* LABALBU 1.9* 1.9* 1.7* BILITOT 0.2 0.2 0.2 ALKPHOS 181* 163* 148* Glucose: Recent Labs 10/03/19 0321 10/03/19 1136 10/03/19 1708 10/03/19 2347 10/04/19 0446 GLUCOSE 134* 89 100 90 87 CBC: Recent Labs 10/03/19 0321 10/03/19 1708 10/03/19 2347 10/04/19 0446 WBC 25.4* -- -- 13.9* -- HGB 6.1* < > 8.9* 7.4* 7.9* HCT 20.2* < > 28.1* 23.2* 24.8* PLT 545* -- -- 405 -- MCV 79.5 -- -- 81.1 -- RDW 18.5* -- -- 17.9* -- < > = values in this interval not displayed. ABGs: No results for input(s): PHART, NKB8VWH, PO2ART, FAS9FWB, X8EPKHOC, FIO2A in the last 72 hours. Lactic Acid: Recent Labs 10/03/19 1012 LACTA 1.0 INR: Recent Labs 10/03/19 1012 10/03/19 1136 10/04/19 0446 INR 1.2* 1.2* 1.2* pro-BNP: No results for input(s): NTPROBNP in the last 72 hours. Cardiac Injury Profile: No results for input(s): CKTOTAL, CKMB, TROPONINI in the last 72 hours. Labs in Last 3 months: Lab Results Component Value Date INR 1.2 (H) 10/04/2019 Imaging: CT Abd/Pel 10/02 - IMPRESSION: 1. No pneumoperitoneum to suggest hollow viscus perforation. Mild fat stranding at the splenic flexure, which may represent mild colitis. Mild perigastric fat stranding; correlate for possible gastritis. 2. Mildly dilated small bowel. Findings could be related to ileus or obstruction. No transition point is seen. 3. Wedge-shaped area of hypoenhancement in both kidneys, which may be related to polyp right is four bilateral renal infarcts. 4. Small bilateral pleural effusions. Bibasilar atelectasis. 5. Mildly distended gallbladder, which could be due to fasting but if there is concern for cholecystitis, ultrasound would be recommended. 6. Hepatic steatosis. US Abd 10/02- IMPRESSION: Distended gallbladder with sludge and mild gallbladder wall thickening with pericholecystic fluid which may be secondary to fasting state and liver disease. Negative Lieberman sign is reported. Acute cholecystitis is less likely. HIDA scan may be a helpful physiologic test. Enlarged fatty liver. No ascites. Small right pleural effusion KUB 10/02 - CONCLUSIONS: 1. Small bowel ileus. 2. Nasogastric tube in the vicinity of the stomach. 3. Pulmonary interstitial edema. CXR 10/03 - IMPRESSION: 1. Prominent interstitial markings which may represent pulmonary vascular congestion versus infectious etiology. Correlate clinically. 2. Interval retraction of the NG tube seen overlying the mid esophagus. Cultures: BCx 10/02 - Pending RCx 10/02 - not sent RVP, UAgs - negative Assessment and Plan: Principal Problem: GI bleed Active Problems: Sepsis (HCC) Acute respiratory failure with hypoxia (HCC) COPD (chronic obstructive pulmonary disease) (HCC) Tobacco abuse Chronic alcohol use Acute midline thoracic back pain Elevated serum creatinine Shock (HCC) Resolved Problems: * No resolved hospital problems. * Shock, septic vs hypovolemic - Patient meets SIRS criteria, on presentation to OSH met criteria for severe sepsis (lactic acidosis) - Patient afebrile, leukocytosis improving 25>14 - Hypotensive in the setting of GI bleed, melanotic stools - BCx pending - UA showing LE and WBC - UCx added on - Continue Vanc/Zosyn for broad spectrum - LA normal on presentation - Procal 17.5 - CT abdomen/pel showing - Small bilateral pleural effusions. Bibasilar atelectasis, distended gallbladder - US showing sludge + mild GB wall thickening - fasting vs AC (less likely based on presentation) - CXR showing poor Dobhoff placement, removed. Acute hypoxic respiratory failure - In the setting of COPD, patient on no home O2 however requiring 2L NC to maintain saturations - Anemia from GI bleed likely contributory - COVID-19 negative at OSH - CTA chest negative for any acute PE at OSH - Obtain sputum cx as above - Infectious workup neg so far - Monitor patient fluid status closely; no known history of CHF however unknown baseline EF and receiving aggressive IVF resuscitation - Net positive +3.6 L - CXR this AM appears similar to presentation GI bleed - Patient with up to 10 episodes of melanotic diarrhea daily at home prior to presentation, associated with intermittent sharp bilateral LQ abdominal pain - FOBT postive at OSH, Hb 6.8 on presentation - Hgb 7.9 this AM, s/p 1 unit yesterday (3 units total) - GI PCR panel and C. Diff toxin pending (in the setting of leukocytosis) - Trend H&H q6h, transfuse for Hb < 7 - Continue protonix gtt - GI consulted and following, appreciate recommendations - Keep NPO pending possible EGD - Checking Haptoglobin/LDH - HIDA scan to evaluate GB findings NAGMA (resolved) - Patient CO2 21, anion gap 2 - In the setting of diarrhea - pH from iCa this AM 7.36 - Bicarb drip switched to D5 1/2 NS - Monitor BMP q6h Ileus noted on KUB - Abdomen previously distended and diffusely tender to palpation on exam - No BM or passing gas. Patient with minimal PO over last 4-5 days - Patient with known history of chronic alcohol use (3-4 bees per day) - CT abdomen and pelvis as above - Lipase negative - NG placement vs EGD - GI on board Back pain, acute on chronic - Patient with stated history of chronic back fractures - CTA chest at outside hospital with no acute osseous abnormality - Lidocaine patch to affected area - Dilaudid 0.5 mg q4h PRN severe pain (in the setting of low CrCl) Reduced creatinine clearance - Patient with unknown SCr baseline, today elevated to 1.41 - Suspect likely to hypotension and hypovolemia - IVF resuscitation - Avoid nephrotoxic medications - Trend BMP q6h for improvement/resolution COPD - Not O2 requiring at home, only on PRN albuterol - Duoneb scheduled q4h, accuneb PRN SOB - Will avoid steroid therapy in the setting of active GI bleed Chronic alcohol use - Patient endorses drinking 5 beers daily - Will initiate CIWA - Daily supplementation with thiamine and folate Tobacco abuse - 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 Labs, imaging studies and electronic medical record have been reviewed by me. This note documented and discussed by the [x]powerhouse operator []JAMAL reflects my history, exam and medical decision making. I have reviewed andagree with the care plan. Changes were made in the orders as necessary. My history, exam, assessment and plan are as follows. Acute abd pain, ileus Hypotension, sepsis with UTI, GB thickening Metabolic acidosis, resolved Acute blood loss anemia NG to LIWS and Check KUB, daily suppository, check HIDA Cont abx, IVF and albumin boluses Transfuse prn, GI following PHYSICAL EXAM: General Appearance: []WDWN []Obese []Cachectic [x]Thin []ill Skin: Temperature [x]Warm []Cool Rash []Yes []No Tattoo(s) []Yes []No HEENT: Pupils round and react [x]Yes []No Sclera []Icteric []Non-Icteric Conjunctiva []Injected []Non-Injected Pinnae []Normal []Other Dentitian [][place] Teeth [x]Dentures []edentulous Oral Mucosa [x][place] []Moist []Dry Oral ETT []Present [x]Absent Neck: Trachea midline [x]Yes []No Thyromegaly []Yes []No Crepitus []Present []Absent Jvd []Present []Absent Lungs: [x]Clear []Crackles []Wheezes [][place] Respiratory effort []Labored [x]Non-Labored Heart: Rate [x]Regular []Irregular []Tachycardia []Bradycardia Rhythm [x]Regular []Irregular Murmur []Present []Absent Peripheral Edema []Present []Absent Abdomen: [x]Soft Bowel Sounds []Present []Absent [x]Tender []Non-Tender []Distended []Non-distended Hernia []Present []Absent Organomegaly []Present []Absent []unable to assess 2/2 body habitus []Scar Extremities: Cyanosis []Present [x]Absent STEELE ([x]RUE [x]RLE [x]LUE [x]LLE) Neurologic: [place] []Yes []No Corneal reflexes []Present []Absent Plantar reflexes []Up []Down []Absent Withdraws to tactile []Yes []No Follows Commands [x]Yes []No []Unresponsive to verbal []Cranial nerves grossly intact []Sensation grossly intact Psych: Alert [x]yes []no Oriented []x0 []x1 []x2 []x3 Affect []Normal []Flat []Agitated []Anxious []Calm []Sedated []NAD documented in this encounter Assessments Diagnosis GI bleed Hemorrhage of gastrointestinal tract, unspecified Sepsis (HCC) Acute respiratory failure with hypoxia (HCC) Acute respiratory failure COPD (chronic obstructive pulmonary disease) (HCC) Chronic airway obstruction, not elsewhere classified Tobacco abuse Tobacco use disorder Chronic alcohol use Acute midline thoracic back pain Elevated serum creatinine Other nonspecific findings on examination of blood Shock (HCC) Shock, unspecified Leucocytosis Leukocytosis, unspecified Colitis Other and unspecified noninfectious gastroenteritis and colitis LORENZO (acute kidney injury) (HCC) Acute kidney failure, unspecified Severe protein-calorie malnutrition (HCC) Other severe protein-calorie malnutrition Agitation Other and unspecified special symptom or syndrome, not elsewhere classified Alcohol abuse Alcohol abuse, unspecified Debility Debility, unspecified Self neglect Other specified behavioral problem Palliative care encounter Encounter for palliative care Goals of care, counseling/discussion Other specified counseling COPD exacerbation (HCC) Obstructive chronic bronchitis with exacerbation Bilateral pleural effusion Unspecified pleural effusion Ileus (HCC) Paralytic ileus Advance Directives No Advanced Directives Records FoundDocuments on File Type Date Recorded Patient Sifter Operator Expl anation ACP-Advance Directive ACP-Power of Enrollment Counselor Latest Code Status on File Code Status Date Activated Date Inactivated Comments Full Code 10/03/2019 10:56 AM Full Code 10/03/2019 3:03 AM 10/03/2019 10:55 AM Advance Directive Response Recorded Date/ Time Living Will No November 01, 2019 11:41pm Power of Enrollment Counselor No October 11:41pm Advance Directive Response Recorded Date/ Time Living Will No November 01, 2019 10:41pm Power of Enrollment Counselor No October 10:41pm Summary Purpose Family History No Family History Records Found Relationship Condition Age at Onset Recorded Date/T mary Unknown Family History?Diabetes Unknown 2019 3:55am Family History?Diabetes Unknown 2019 3:55am Relationship Condition Age at Onset Recorded Date/T mary Unknown Family History?Diabetes Unknown 2019 2:55am Family History?Diabetes Unknown 2019 2:55am Chief Complaint and Reason for Visit Chief Complaint BACK PAIN Chief Complaint OSTEO Chief Complaint OSTEO LUNG CANCER SCREENING Chief Complaint Admit Date BACK PAIN June 29, 2024 9:34am Chief Complaint Admit Date BACK PAIN June 29, 2024 9:34am RULE OUT PNEUMONIA, SHORTNESS OF BREATH August 27, 2024 3:38pm Additional Source Comments Reason for Visit (unrecogniz ed section and content) Reason Comments INFORMATION SOURCE (unrecogn ized section and content) DATE CREATED AUTHOR 11/23/2019 [facility] DATE CREATED AUTHOR AUTHOR'S ORGANIZ ATION 09/21/2024 [facility] Goals (unrecognized section and content) Goals may be documented in a n alternate sectionGoals may be documented in an alternate sectionGoals may be documented in an alternate sectionGoals may be documented in an alternate sectionGoals may be documented in an alternate sectionGoals may be documented in an alternate sectionGoals may be documented in an alternate section Care Teams (unrecognized sec tion and content) Team Status: Active Member Role Status Dates Dr. Tristan Jean MD Family Provider Active Dr. Lorraine Stanley DO Primary Care Provider Active Team Status: Inactive Member Role Status Dates Dr. Lorraine Stanley DO Primary Care Provide r, Attending Provider, Referring Provider Active Team Status: Inactive Member Role Status Dates Dr. Lorraine Stanley DO Primary Care Provider Active Start: June 29, 2024 End: June 29, 2024 Dr. Lorraine Stanley DO Attending Provider Active St art: June 29, 2024 End: June 29, 2024 Dr. Lorraine Stanley DO Referring Provider Active St art: June 29, 2024 End: June 29, 2024 Team Status: Inactive Member Role Status Dates Dr. Lorraine Stanley DO Primary Care Provider Active Start: August 02, 2024 End: August 02, 2024 Dr. Lorraine Stanley DO Attending Provider Active St art: August 02, 2024 End: August 02, 2024 Dr. Lorraine Stanley DO Referring Provider Active St art: August 02, 2024 End: August 02, 2024 Team Status: Active Member Role/Relationship Status Dates Dr. Tristan Jean MD Family Provider Active Dr. Lorraine Stanley DO Primary Care Provider Active Team Status: Inactive Member Role/Relationship Status Dates Dr. Lorraine Stanley DO Primary Care Provider Active Start: June 29, 2024 End: June 29, 2024 Dr. Lorraine Stanley DO Attending Provider Active St art: June 29, 2024 End: June 29, 2024 Dr. Lorraine Stanley DO Referring Provider Active St art: June 29, 2024 End: June 29, 2024 Team Status: Inactive Member Role/Relationship Status Dates Dr. Lorraine Stanley DO Primary Care Provider Active Start: August 02, 2024 End: August 02, 2024 Dr. Lorraine Stanley DO Attending Provider Active St art: August 02, 2024 End: August 02, 2024 Dr. Lorraine Stanley DO Referring Provider Active St art: August 02, 2024 End: August 02, 2024 Team Status: Inactive Member Role/Relationship Status Dates Dr. Lorraine Stanley DO Primary Care Provider Active Start: August 27, 2024 End: August 27, 2024 YEN Chin Attending Provider Active St art: August 27, 2024 End: August 27, 2024 YEN Chin Referring Provider Active St art: August 27, 2024 End: August 27, 2024 FOR RECORDS PERTAINING TO PATIENTS WHO ARE OR HAVE BEEN ENROLLED IN A CHEMICAL DEPENDENCY/SUBSTANCEABUSE PROGRAM, SOME INFORMATION MAY BE OMITTED. This clinical summary was aggregated from multiple sources. Caution should be exercised in using it in the provision of clinical care. This summary normalizes information from multiple sources, and as a consequence, information in this document may materially change the coding, format and clinical context of patient data. In addition, data may be omitted in some cases. CLINICAL DECISIONS SHOULD BE BASED ON THE PRIMARY CLINICAL RECORDS. [facility]. provides no warranty or guarantee of the accuracy or completeness of information in this document.
== END | disposition home or self-care (01) ==
LOC: OPBI 07:03
PROVIDERS: PCP Family Medicine; Referring Provider Family Medicine; Visit Provider Family Medicine
DX: Z12.31 Encounter for screening mammogram for malignant neoplasm of breast (principal)
CPT/HCPCS: 77063; 77067

== ENCOUNTER → 2024-10-08 | Outpatient (CLI) | payer MEDICARE, SELFPAY ==
--- NOTE | 2024-10-08 08:58 | US_ITS ---
PROCEDURE: BREAST COMPLETE UNILATERAL 10/08/2024 REASON FOR EXAM: FA, Age 69 y/o , ABN MAMM. 2 left breast masses. Evaluate. Extremely dense breast tissue. COMPARISON: Mammogram studies dated 10/08/2024 and 09/28/2024. TECHNIQUE: BREAST COMPLETE UNILATERAL. A complete left breast ultrasound was performed. All 4 quadrants were scanned as well as the retroareolar region and axillary region. FINDINGS: There is a solid, hypoechoic, heterogeneous mass in the left breast at the 1 o'clock, 5 cm from the nipple position measuring approximate 2.1 x 1.5 x 0.8 cm. This mass does correlate to 1 of the masses seen on the mammogram. There is blood flow to this mass. The mass is highly worrisome for malignancy. Biopsy is warranted. There appears to be an extension from this mass extending to a smaller mass located at the 1 o'clock, 6 cm from nipple position measuring 8 x 6 x 3 mm. This smaller mass corresponds to the 2nd mass seen on the mammogram. Biopsy is warranted in order to completely exclude a malignancy. No additional masses are seen within the breast. There 2 abnormal appearing axillary lymph nodes. The cortexes are thick. These abnormal appearing lymph nodes measures 7 x 5 x 5 mm and 9 x 6 x 3 mm. Biopsy is warranted in order to exclude malignant lymph nodes. US/Breast Complete Unilateral IMPRESSION: The 2 masses in the left breast should be biopsied as well as the 2 abnormal ap pearing axillary lymph nodes. BI-RADS 5: HIGHLY SUGGESTIVE OF MALIGNANCY. RECOMMENDATION: Biopsy Recommended Reading Location: [id number]
--- NOTE | 2024-10-08 08:58 | BI_ITS ---
EXAM: DIAG MAMM W/CAD, UNILAT 10/08/2024 with rivera CLINICAL HISTORY: F, Age 69 y/o , ABN MAMM. Inconclusive screening mammogram dated 09/28/2024 showed a left asymmetry with associated architectural distortion. Evaluate. TECHNIQUE: DIAG MAMM W/CAD, UNILAT. Rivera images were also performed. COMPARISON: Prior exam(s) dated 09/28/2024. FINDINGS: TISSUE DENSITY: The breasts are extremely dense, which lowers the sensitivity of mammography. Bilateral Breast Mammographic Findings: There is a 2 cm spiculated mass in the superior outer aspect of the left breast correlating to the asymmetry with associated architectural distortion seen on the prior screening mammogram study. Further workup with ultrasound will be performed for further evaluation. Superior and posterior to this mass is a smaller, 8 mm, partially obscured mass. Further workup with ultrasound will be performed. BI/DIAG MAMM W/CAD, UNILAT IMPRESSION: There are 2 left breast masses. Further workup with ultrasound will be perform ed. Please see that report. OVERALL FINAL ASSESSMENT BI-RADS 0: INCOMPLETE - NEED ADDITIONAL IMAGING EVALUATION. RECOMMENDATION: Ultrasound Recommended A letter with findings and recommendations will be mailed to the patient. Reading Location: [id number]
== END | disposition home or self-care (01) ==
PROVIDERS: PCP Family Medicine; Referring Provider Family Medicine; Visit Provider Family Medicine
DX: R92.8 Other abnormal and inconclusive findings on diagnostic imaging of breast (principal)
CPT/HCPCS: 76641; 77061; 77065; G0279